=== PATIENT | female | born 1935 | race Caucasian/White ===

== ENCOUNTER 2016-09-14 14:23 | Inpatient (IN) | payer OTHER ==
[~2016-09-14] VITALS: Ht 177.8 cm; Wt 66.4 kg
[~2016-09-14 14:23] MED LIST: CLTP PO; FAMO20TA11 PO; LACT12LO3 TOP; LEVO50TA60 PO; LORA-741 PO; MENTOIN TOP; MULT-506 PO; ONDA4TAB4 PO; TRIA0.1C20 TOP
[2016-09-14] MEDS ORDERED: SODIUM CHLORIDE 0.9% 1000ML 1,000 ML IV STA ×2 (14:50→19:21)
[2016-09-14] MEDS ORDERED: ONDANSETRON INJ 2 MG/ML 2 ML VIAL IV STA (14:50)
[2016-09-14 15:00] LABS: HEMATOCRIT 41.6 % (37-47); MEAN CELL VOLUME 94.3 fL (80-100); MEAN CORPUSCULAR HEMOGLOBIN 32.9 pg (25-34); MEAN CORPUSCULAR HGB CONC 34.9 g/dl (32-36); MEAN PLATELET VOLUME 9.8 fL (7.4-10.4); PLATELET COUNT 189 K/uL (130-400); RED BLOOD COUNT 4.41 M/uL (4.2-5.4); WHITE BLOOD COUNT 8.69 K/uL (4.8-10.8)
--- NOTE | 2016-09-14 15:01 | EMERGENCY ROOM VISIT NOTE ---
History Report prepared by Donnell: Andrei Pang Under the Supervision of: Dr. Herson Kelly M.D. First contact with patient: 14:33 Chief Complaint: ILLNESS Stated Complaint: DIZZINESS/LIGHTHEADED/HEADACHE/BACK PAIN/LEG PAIN History of Present Illness The patient is a 81 year old female who presents to the Emergency Room with complaints of worsening nausea and vomiting for the past two days. The patient states that she is additionally having dizziness, headache, abdominal pain, chills, congestion though that is constant, and some chest tightness. The patient denies any diarrhea, fever, hematochezia, or melena. She states that she has had similar pain before due to gallbladder issues, and she has gall stones, and she has had an appendectomy and a tubal ligation. She states that she has not had a bowel movement since yesterday. The patient denies any history of peptic ulcer disease. She has a history of Sjogren's syndrome and lung disease, and she has recently been put on a new medication. Source of History: patient Onset: two days ago Position: other (global) Quality: other (nausea and vomiting) Timing: worsening Associated Symptoms: + chills, + headache, + abdominal pain, No fevers, No melena, No hematochezia, No diarrhea Review of Systems See HPI for pertinent positives and negatives. A total of ten systems were reviewed and were otherwise negative. Past Medical & Surgical Medical Problems: (1) Autoimmune hepatitis (2) Benign hypertension (3) Central retinal vein occlusion of left eye (4) Cholelithiasis (5) CKD (chronic kidney disease), stage III (6) Diverticulosis of colon (7) Dyslipidemia (8) GERD (gastroesophageal reflux disease) (9) Hypertension (10) HYPERTENSION NOS (11) Interstitial lung disease (12) Osteoporosis (13) Seasonal allergies (14) Sjogrens syndrome (15) Type II Diabetes Surgical Problems: (1) Status post appendectomy (2) Status post tubal ligation Social History Smoking Status: Never Smoker Marital Status: Occupation Status: retired Current/Historical Medications Scheduled Azathioprine (Imuran), 100 MG PO DAILY Famotidine (Pepcid), 10 MG PO DAILY PRN Arhfhtzw-Fgnpedzwyjkl-Bgbkxprm (Artificial Tears), DIRECTED Ipratropium Whitefish (Nasal) (Ipratropium Whitefish), 2 SPRAYS SHEILA BID Levothyroxine Sodium (Synthroid), 50 MCG PO DAILY Lisinopril (Zestril), 5 MG PO DAILY Metoprolol Succ (Toprol Xl) (Toprol-Xl), 25 MG PO DAILY Prednisone (Prednisone), 15 MG PO DAILY Scheduled PRN Acetaminophen Tab (Tylenol), 325 MG PO DIRECTED PRN for Pain or Fever Albuterol Hfa (Ventolin Hfa), 2 PUFFS INH Q6H PRN for SOB/Wheezing Albuterol Sulf (Proventil 0.083% 2.5MG/3ML), 2.5 MG INH Q4H PRN for SOB/Wheezing Ipratropium Whitefish (Atrovent 0.02% Soln), 1 VIAL INH Q4H PRN for SOB/Wheezing Lactic Acid (Ammonium Lactate Cream 12%), 1 APPLN TOP BID PRN for DRYNESS Triamcinolone Acet (Aristocort 0.1%), 1 APPLN EXT BID PRN for RASH Allergies Coded Allergies: Sulfamethoxazole w/Trimethoprim (Unverified Allergy, Severe, edema face/ lips/tongue, 09/14/16) Latex1 -Allergic Contact Dermititis (Unverified Allergy, Mild, LOCAL SKIN REACTION, 09/14/16) Niacin (Unverified Allergy, Mild, RASH, 09/14/16) Naproxen (Unverified Adverse Reaction, Intermediate, BURNING STOMACH, 09/14) Physical Exam Vital Signs Date Time Temp Pulse Resp B/P (MAP) Pulse Ox O2 Delivery O2 Flow Rate FiO2 09/14/16 18:34 113 09/14/16 17:56 109 18 145/81 92 Room Air 09/14/16 16:09 101 18 157/80 95 Room Air 09/14/16 15:29 103 18 146/102 92 Room Air 09/14/16 14:32 115 09/14/16 14:30 37.1 116 16 236/137 90 Room Air Physical Exam GENERAL: Awake, alert, fatigued-appearing, in no distress HENT: Mucous membranes are dry. Normocephalic, atraumatic. EYES: Normal conjunctiva. Sclera non-icteric. NECK: Supple. No nuchal rigidity. FROM. No JVD. RESPIRATORY: Diminished at bases but otherwise Clear to auscultation. CARDIAC: Mildly tachycardic rate, normal rhythm. Extremities warm and well perfused. Pulses equal. ABDOMEN: Mild epigastric and left lower quadrant tenderness. Soft, non- distended. No rebound or guarding. No masses. RECTAL: Deferred. MUSCULOSKELETAL: Chest examination reveals no tenderness. The back is symmetrical on inspection without obvious abnormality. There is no CVA tenderness to palpation. Moderate right knee effusion with slight warmth, no overlying erythema. LOWER EXTREMITIES: Calves are equal size bilaterally and non-tender. No edema. No discoloration. NEURO: Normal sensorium. No sensory or motor deficits noted. SKIN: No rash or jaundice noted. Medical Decision & Procedures ER Provider Diagnostic Interpretation: Radiology results as stated below per my review and radiologist interpretation: CHEST ONE VIEW PORTABLE CLINICAL HISTORY: cp dyspnea COMPARISON STUDY: 04/28/2012 FINDINGS: Small parenchymal infiltrate left base. Mild Baseline chronic interstitial change. No evidence for cardiac enlargement. Diaphragms are smooth. IMPRESSION: Small parenchymal infiltrate left base. Mild chronic interstitial change bilaterally. The above report was generated using voice recognition software. It may contain grammatical, syntax or spelling errors. Electronically signed by: Franklin Randle M.D. 09/14/2016 3:14 PM Dictated Date/Time: 09/14/2016 3:14 PM (CHEST FOR PE) ANGIO WITH CT DOSE: HISTORY: Chest pain dyspnea TECHNIQUE: Multiaxial CT images of the chest were performed following the intravenous administration of contrast to evaluate the pulmonary arteries. Maximal intensity projection images were also obtained. A dose lowering technique was utilized adhering to the principles of ALARA. COMPARISON STUDY: 11/17/2013 FINDINGS: Pulmonary vasculature enhances appropriately. No filling defects are seen. Thoracic aorta shows minimal atherosclerotic change. Somewhat progressive interstitial change throughout both hemithoraces compared to the prior exam. Right hilar nodes measuring to 1.2 cm. Several mediastinal nodes measuring to 1.2 cm. Bibasilar atelectatic atelectatic and pleural reactive change. IMPRESSION: 1. Study is negative for pulmonary embolus. 2. Mildly progressive interstitial change suggesting a low-grade pneumonitis throughout both hemithoraces. 3. Several mediastinal and/or hilar nodes possibly reactive The above report was generated using voice recognition software. It may contain grammatical, syntax or spelling errors. Electronically signed by: Franklin Randle M.D. 09/14/2016 6:12 PM Dictated Date/Time: 09/14/2016 6:07 PM ABD/PELVIS IV CONTRAST ONLY CT DOSE: 702.96 mGy.cm HISTORY: Pain n/v TECHNIQUE: Multiaxial CT images of the abdomen and pelvis were performed following the use of intravenous contrast. A dose lowering technique was utilized adhering to the principles of ALARA. COMPARISON STUDY: None. FINDINGS: Interstitial infiltrative change at both lung bases. Mild fatty infiltration of liver. Multiple gallstones within the gallbladder lumen. Possible calcification in the region of the cystic duct and the distal common bile duct. No dilatation of the pancreatic duct. Cortical scarring of the kidneys bilaterally. No evidence for renal hydronephrosis. Nonobstructive bowel pattern. Normal appendix. Extensive chronic sigmoid diverticulosis. No evidence for acute diverticulitis. Bladder is midline. Mild bladder distention. No evidence for pneumatosis or free air. IMPRESSION: 1. Nonspecific bibasilar interstitial infiltrative change. 2. Gallstone filled gallbladder with the possibility of calcifications adjacent to and/or within the cystic as well as common bile duct. 3. Considerable sigmoid diverticulosis with no evidence for acute diverticulitis. 4. Nonobstructive bowel pattern. 5. Considerable degenerative disc change of the thoracolumbar spine The above report was generated using voice recognition software. It may contain grammatical, syntax or spelling errors. Electronically signed by: Franklin Randle M.D. 09/14/2016 6:18 PM Dictated Date/Time: 09/14/2016 6:12 PM Laboratory Results Test 09/14/16 14:38 09/14/16 15:22 09/14/16 19:22 09/14/16 19:36 Stomatocytes 1+ Direct Bilirubin 0.1 mg/dl (0-0.2) Lyme Disease IgG Antibody NEG (NEG) Lyme Disease IgM Antibody NEG (NEG) Lactic Acid Level 1.0 mmol/L (0.4-2.0) Synovial Fluid Source KNEE Synovial Fluid Color YELLOW Synovial Fluid Appearance TURBID Synovial Fluid WBC 1770 /uL (0-200) Synovial Fluid RBC < 3000 /uL Synovial Fluid Polynuclear WBCs % 55.8 % Synovial Fluid Mononuclear WBCs % 44.2 % Synovial Fluid Crystals Urine Color YELLOW Urine Appearance CLEAR (CLEAR) Urine pH 6.5 (4.5-7.5) Urine Specific [place] 1.022 (1.000-1.030) Urine Protein NEG (NEG) Urine Glucose (UA) NEG (NEG) Urine Ketones NEG (NEG) Urine Occult Blood NEG (NEG) Urine Nitrite NEG (NEG) Urine Bilirubin NEG (NEG) Urine Urobilinogen NEG (NEG) Urine Leukocyte Esterase NEG (NEG) Urine WBC (Auto) 1-5 /hpf (0-5) Urine RBC (Auto) 0-4 /hpf (0-4) Urine Hyaline Casts (Auto) 0 /lpf (0-5) Urine Epithelial Cells (Auto) 10-20 /lpf (0-5) Urine Bacteria (Auto) NEG (NEG) Laboratory results reviewed by me Medications Administered Medications (Trade) Dose Ordered Sig/Nataly Route Start Time Stop Time Status Last Admin Dose Admin Sodium Chloride 1,000 ml @ 999 mls/hr Q1H1M STAT IV 09/14/16 14:50 09/14/16 15:50 DC 09/14/16 15:15 999 MLS/HR Ondansetron HCl (Zofran Inj) 4 mg NOW STAT IV 09/14/16 14:50 09/14/16 14:54 DC 09/14/16 15:15 4 MG Piperacillin Sod/ Tazobactam Sod (Zosyn Iv) 3.375 gm NOW STAT IV 09/14/16 19:21 09/14/16 19:27 DC 09/14/16 19:40 3.375 GM Sodium Chloride 1,000 ml @ 999 mls/hr Q1H1M STAT IV 09/14/16 19:21 09/14/16 20:21 DC 09/14/16 19:40 999 MLS/HR Vancomycin HCl 1500 mg/Sodium Chloride 530 ml @ 200 mls/hr NOW STAT IV 09/14/16 19:21 09/14/16 21:59 DC 09/14/16 22:13 200 MLS/HR Procedure Arthrocentesis procedure note The patient was consented for the procedure and risks and benefits were explained. The patient had no contraindications. Indication for the procedure was for right knee effusion, rule out septic knee. The patient was prepped and draped in typical sterile fashion. 5 mL of lidocaine 1% lidocaine was instilled and 18-gauge was inserted into the lateral aspect of the right knee and successfully drained 55 mL of cloudy aspirate. Aspirate was sent for cell counts culture and Gram stain, as well as Lyme. No complications. ECG Indication: nausea, vomiting Rate (beats per minute): 109 Rhythm: sinus tachycardia Findings: no acute ischemic change, other (LVH) ED Course 1433: The patient was evaluated in room B7. A complete history and physical exam was performed. 1450: Zofran Inj 4mg IV, Sodium Chloride 1000 ml @ 999 mls/hr IV 1540: I reassessed the patient, and I performed an ultrasound on the patient Medical Decision I reviewed the patient's past medical history, medications, and the nursing notes as described above. The patient's presentation and history were concerning for gastritis vs gastroenteritis, cholecystitis vs. biliary colic less likely, obstruction less likely, ACS less likely. Patient is a 81-year-old woman with a complicated past medical history of Sjogren's currently on azathioprine and chronic prednisone presents to the emergency department with multiple complaints including generalized malaise, nausea and vomiting, chest pain shortness of breath, and abdominal pain over the past several days per history of present illness. On arrival the patient appears uncomfortable in no acute distress. Afebrile and tachycardic to 110s. On exam the patient appears clinically dry. Lungs diminished at the bases, abdomen with mild tenderness to palpation in the right upper quadrant and epigastrium, as well as left lower quadrant. EKG unremarkable, as to x-ray with question left lower lobe infiltrate, WBC and lactate within normal limits. Bedside ultrasound was significant gallstone burden however without pericholecystic fluid or wall thickening. Considering the patient's Sjogren's broad differential existed for the patient's multiple complaints therefore a CT PE study was done as well as a of the abdomen and pelvis. CT chest findings negative for PE however with bilateral lower lobe pneumonitis and CT of pelvis with gallstones appreciated question calcification cystic duct otherwise without any acute emergent findings. On reevaluation Patient with moderate improvement in heart rate IV fluids however still mildly tachycardic. Moreover , the patient complained of right knee pain and swelling that was worse than she initially thought. Reports that she finds it difficult to ambulate but is able to despite the pain. Passive range of motion is intact although causes discomfort. Mild warmth with moderate effusion of the right knee. Thus, the patient was consented and arthrocentesis was performed per procedure note above. Considering the patient's immunosuppressed status with question of pneumonia as well as possible infected knee the patient was treated empirically with vancomycin and Zosyn. The patient is admitted to hospital medicine for further hydration and management including possible rheumatology and/or pulmonology consultation. Medication Reconcilliation Current Medication List: was personally reviewed by me Blood Pressure Screening Patient's blood pressure: Elevated blood pressure Impression Primary Impression: Pneumonia Scribe Attestation The scribe's documentation has been prepared under my direction and personally reviewed by me in its entirety. I confirm that the note above accurately reflects all work, treatment, procedures, and medical decision making performed by me. Departure Information Referrals Marivel Yoon M.D. (PCP) Patient Instructions My [facility]
[2016-09-14] MEDS ORDERED: PRED-301 PO (15:06)
[2016-09-14] MEDS ORDERED: LCHC12280 TOP (15:06)
[2016-09-14] MEDS ORDERED: GLYCDRO6 (15:06)
[2016-09-14] MEDS ORDERED: LEVO50TA PO (15:06)
[2016-09-14] MEDS ORDERED: ALBINS/ INH (15:06)
[2016-09-14] MEDS ORDERED: METO25TA3 PO (15:06)
[2016-09-14] MEDS ORDERED: AZAT50TA17 PO (15:06)
[2016-09-14] MEDS ORDERED: TRMCR130WC EXT (15:06)
[2016-09-14] MEDS ORDERED: IPRA0.03 NAE (15:06)
[2016-09-14] MEDS ORDERED: ACET325T96 PO (15:06)
[2016-09-14] MEDS ORDERED: VNTHFA/IN INH (15:06)
[2016-09-14] MEDS ORDERED: LISI-729 PO (15:06)
[2016-09-14] MEDS ORDERED: ATRINSX INH (15:06)
--- NOTE | 2016-09-14 15:16 | DIAGNOSTIC IMAGING REPORT ---
CHEST ONE VIEW PORTABLE CLINICAL HISTORY: cp dyspnea COMPARISON STUDY: 04/28/2012 FINDINGS: Small parenchymal infiltrate left base. Mild Baseline chronic interstitial change. No evidence for cardiac enlargement. Diaphragms are smooth. IMPRESSION: Small parenchymal infiltrate left base. Mild chronic interstitial change bilaterally. The above report was generated using voice recognition software. It may contain grammatical, syntax or spelling errors. Electronically signed by: Franklin Randle M.D. 09/14/2016 3:14 PM Dictated Date/Time: 09/14/2016 3:14 PM
[2016-09-14 15:18] LABS: BUN/CREATININE RATIO 17.1 (10-20); CALCIUM 9.1 mg/dl (8.5-10.1); CREATININE 0.86 mg/dl (0.60-1.20)
[2016-09-14 15:23] LABS: BASO % 0.2 %; BASO ABS # 0.02 K/uL (0-0.2); COMPLETE YES; IG% 0.2 %; LYMPH % 13.5 %; LYMPH ABS # 1.17 K/uL (1.2-3.4); MONO % 10.9 %; NEUT % 74.2 %; STOMATOCYTE 1+
[2016-09-14] MEDS ORDERED: OPTIRAY 320 IV PRN (18:00)
--- NOTE | 2016-09-14 18:13 | DIAGNOSTIC IMAGING REPORT ---
(CHEST FOR PE) ANGIO WITH CT DOSE: HISTORY: Chest pain dyspnea TECHNIQUE: Multiaxial CT images of the chest were performed following the intravenous administration of contrast to evaluate the pulmonary arteries. Maximal intensity projection images were also obtained. A dose lowering technique was utilized adhering to the principles of ALARA. COMPARISON STUDY: 11/17/2013 FINDINGS: Pulmonary vasculature enhances appropriately. No filling defects are seen. Thoracic aorta shows minimal atherosclerotic change. Somewhat progressive interstitial change throughout both hemithoraces compared to the prior exam. Right hilar nodes measuring to 1.2 cm. Several mediastinal nodes measuring to 1.2 cm. Bibasilar atelectatic atelectatic and pleural reactive change. IMPRESSION: 1. Study is negative for pulmonary embolus. 2. Mildly progressive interstitial change suggesting a low-grade pneumonitis throughout both hemithoraces. 3. Several mediastinal and/or hilar nodes possibly reactive The above report was generated using voice recognition software. It may contain grammatical, syntax or spelling errors. Electronically signed by: Franklin Randle M.D. 09/14/2016 6:12 PM Dictated Date/Time: 09/14/2016 6:07 PM
--- NOTE | 2016-09-14 18:19 | DIAGNOSTIC IMAGING REPORT ---
ABD/PELVIS IV CONTRAST ONLY CT DOSE: 702.96 mGy.cm HISTORY: Pain n/v TECHNIQUE: Multiaxial CT images of the abdomen and pelvis were performed following the use of intravenous contrast. A dose lowering technique was utilized adhering to the principles of ALARA. COMPARISON STUDY: None. FINDINGS: Interstitial infiltrative change at both lung bases. Mild fatty infiltration of liver. Multiple gallstones within the gallbladder lumen. Possible calcification in the region of the cystic duct and the distal common bile duct. No dilatation of the pancreatic duct. Cortical scarring of the kidneys bilaterally. No evidence for renal hydronephrosis. Nonobstructive bowel pattern. Normal appendix. Extensive chronic sigmoid diverticulosis. No evidence for acute diverticulitis. Bladder is midline. Mild bladder distention. No evidence for pneumatosis or free air. IMPRESSION: 1. Nonspecific bibasilar interstitial infiltrative change. 2. Gallstone filled gallbladder with the possibility of calcifications adjacent to and/or within the cystic as well as common bile duct. 3. Considerable sigmoid diverticulosis with no evidence for acute diverticulitis. 4. Nonobstructive bowel pattern. 5. Considerable degenerative disc change of the thoracolumbar spine The above report was generated using voice recognition software. It may contain grammatical, syntax or spelling errors. Electronically signed by: Franklin Randle M.D. 09/14/2016 6:18 PM Dictated Date/Time: 09/14/2016 6:12 PM
[2016-09-14] MEDS ORDERED: XYLOCAINE 1%/SOD BICARB 20 ML VIAL INFIL ONE (19:00)
[2016-09-14] MEDS ORDERED: PIPERACILLIN/TAZOBACTAM 3.375 GM/100ML D5W IV STA (19:21)
[2016-09-14] MEDS ORDERED: VANCOMYCIN INJ 1,500 MG in SODIUM CHLORIDE 0.9% 500ML 500 ML IV STA (19:21)
[2016-09-14] MEDS ORDERED: VANCOMYCIN INJ 1,500 MG in SODIUM CHLORIDE 0.9% 250ML 250 ML IV STA (19:21)
[2016-09-14] MEDS ORDERED: ONDANSETRON INJ 2 MG/ML 2 ML VIAL IV PRN (19:45)
[2016-09-14] MEDS ORDERED: NITROGLYCERIN 0.4 MG SL PER TAB CHARGE SL PRN (19:45)
[2016-09-14 19:58] LABS: SYNOVIAL FLUID APPEARANCE TURBID; SYNOVIAL FLUID COLOR YELLOW; SYNOVIAL FLUID MONONUC RELAT 44.2 %; SYNOVIAL FLUID POLYNUC RELAT 55.8 %
[2016-09-14] MEDS ORDERED: IV FLUIDS COMPLETED PRN (20:00)
[2016-09-14 20:04] LABS: URINE APPEARANCE CLEAR (CLEAR); URINE BILIRUBIN NEG (NEG); URINE COLOR YELLOW; URINE NITRITE NEG (NEG); URINE PH 6.5 (4.5-7.5); URINE SPECIFIC GRAVITY 1.022 (1.000-1.030); UROBILINOGEN NEG (NEG); ZZUR CULT IF INDIC CLEAN CATCH NO
[2016-09-14 20:07] LABS: MANUAL MICROSCOPIC REQUIRED? NO; REVIEW REQ? NO
[2016-09-14 20:12] LABS: LYME DISEASE AB IGG NEG (NEG); LYME DISEASE AB IGM NEG (NEG)
[2016-09-14] MEDS ORDERED: ALBUTEROL HFA 8 GM INHALER INH PRN (20:30)
[2016-09-14] MEDS ORDERED: ARTIFICIAL TEARS OP SOLN OPB PRN ×2 (20:30)
--- NOTE | 2016-09-14 20:36 | History and Physical ---
History & Physical Date & Time of Service: Sep 14, 2016 at ~ 19:30 . Chief Complaint: chills, abdominal pain, nausea, knee pain . Primary Care Physician: Marivel Yoon M.D. . History of Present Illness Source: patient, family, clinic records, hospital records 81 YO female followed by Dr. Yoon for Internal Medicine, Dr. Chavarria for Pulmonary Medicine, and Dr. Casillas for Rheumatology. History of hypertension, Sjogren's syndrome, interstitial lung disease, autoimmune hepatitis, and other problems noted below. Her Sjogren's syndrome has been manage with steroids for some time. Started on azathioprine a few weeks ago. Seen in Rheumatology Clinic 2 days prior to admission and was doing well. Yesterday she started experiencing chills, epigastric abdominal discomfort, nausea. Abdominal pain described as epigastric pressure that does not radiate. No documented fever. No emesis. No diarrhea, melena, hematochezia. No dysuria or hematuria. Last night she noticed some pain and swelling of her right knee. No associated trauma. [place] worse today, so she came to the Emergency Department for evaluation. . Past Medical/Surgical History Chronic and Resolved Medical Problems: (1) Autoimmune hepatitis Status: Chronic (3) Central retinal vein occlusion of left eye Status: Chronic (4) Cholelithiasis Status: Chronic (5) CKD (chronic kidney disease), stage III Status: Chronic (6) Diverticulosis of colon Status: Chronic (7) Dyslipidemia Status: Chronic (8) GERD (gastroesophageal reflux disease) Status: Chronic (9) Hypertension Status: Chronic (11) Interstitial lung disease Status: Chronic (12) Osteoporosis Status: Chronic (13) Seasonal allergies Status: Chronic (14) Sjogrens syndrome Status: Chronic (15) Type II Diabetes Status: Chronic Surgical Problems: (1) Status post appendectomy Status: Chronic (2) Status post tubal ligation Status: Chronic . Family History FATHER Dementia MOTHER Heart disease BROTHER Bladder cancer BROTHER COPD (chronic obstructive pulmonary disease) SISTER COPD (chronic obstructive pulmonary disease) Social History Smoking Status: Never Smoker Alcohol Use: rarely Marital Status: Housing status: lives with family Occupational Status: retired Immunizations History of Influenza Vaccine: Yes History of Tetanus Vaccine?: Unknown History of Pneumococcal: Yes History of Hepatitis B Vaccine: No Multi-Drug Resistant Organisms History of MDRO: No Allergies Coded Allergies: Sulfamethoxazole w/Trimethoprim (Unverified Allergy, Severe, edema face/ lips/tongue, 09/14/16) Latex1 -Allergic Contact Dermititis (Unverified Allergy, Mild, LOCAL SKIN REACTION, 09/14/16) Niacin (Unverified Allergy, Mild, RASH, 09/14/16) Naproxen (Unverified Adverse Reaction, Intermediate, BURNING STOMACH, 09/14) Home Medications Scheduled Azathioprine (Imuran), 100 MG PO DAILY Famotidine (Pepcid), 10 MG PO DAILY PRN Rjzkznos-Cuipugryfirl-Ojbhkejq (Artificial Tears), DIRECTED Ipratropium Everest (Nasal) (Ipratropium Everest), 2 SPRAYS SHEILA BID Levothyroxine Sodium (Synthroid), 50 MCG PO DAILY Lisinopril (Zestril), 5 MG PO DAILY Metoprolol Succ (Toprol Xl) (Toprol-Xl), 25 MG PO DAILY Prednisone (Prednisone), 15 MG PO DAILY Scheduled PRN Acetaminophen Tab (Tylenol), 325 MG PO DIRECTED PRN for Pain or Fever Albuterol Hfa (Ventolin Hfa), 2 PUFFS INH Q6H PRN for SOB/Wheezing Albuterol Sulf (Proventil 0.083% 2.5MG/3ML), 2.5 MG INH Q4H PRN for SOB/Wheezing Ipratropium Everest (Atrovent 0.02% Soln), 1 VIAL INH Q4H PRN for SOB/Wheezing Lactic Acid (Ammonium Lactate Cream 12%), 1 APPLN TOP BID PRN for DRYNESS Triamcinolone Acet (Aristocort 0.1%), 1 APPLN EXT BID PRN for RASH Review of Systems Constitutional: + chills, No fever, No weight loss Eyes: + problem reported (chronic dry eyes, chronic vision loss left eye) ENT: + nasal symptoms, + problem reported (xerostomia), No sore throat Respiratory: + cough (mild, attriubted to postnasal drainage), + dyspnea on exertion (chronic, unchanged) Cardiovascular: + problem reported (as noted above in HPI) Abdomen: + problem reported (as noted above in HPI) Musculoskeletal: + joint pain Genitourinary - Female: No dysuria, No hematuria Neurologic: + problem reported (occasional frontal headahces) Endocrine: + fatigue, + excessive thirst, + problem reported (blood sugars well -controlled), No excessive urination Hematologic / Lymphatic: + abnormal bleeding/bruising (bruises easily), No swollen lymph nodes Integumentary: No new/changing skin lesions Allergic / Immunologic: + seasonal allergies Physical Exam Vital Signs Date Time Temp Pulse Resp B/P (MAP) Pulse Ox O2 Delivery O2 Flow Rate FiO2 09/14/16 19:45 111 18 139/81 93 Room Air 09/14/16 18:34 113 09/14/16 17:56 109 18 145/81 92 Room Air 09/14/16 16:09 101 18 157/80 95 Room Air 09/14/16 15:29 103 18 146/102 92 Room Air 09/14/16 14:32 115 09/14/16 14:30 37.1 116 16 236/137 90 Room Air General Appearance: WD/WN, no apparent distress Head: normocephalic, atraumatic Eyes: normal inspection, PERRL, EOMI, sclerae normal ENT: hearing grossly normal, pharynx normal, + pertinent finding (upper and lower dentures) Neck: supple, no adenopathy, thyroid normal, trachea midline Respiratory/Chest: no respiratory distress, no accessory muscle use, + rales ( scattered) Cardiovascular: regular rate, rhythm, no edema, no JVD, no murmur, normal peripheral pulses, + gallop/S4 Abdomen/GI: normal bowel sounds, soft, no organomegaly, no pulsatile mass, + pertinent finding (moderate epigastric tenderness without rebound or guarding) Extremities/Musculoskelatal: no calf tenderness, no pedal edema, + pertinent finding (moderate effusion right knee without erythema or warmth) Neurologic/Psych: oreman II-XII nml as tested (PERRL, EOMI, no facial palsy, no dyarthria), no motor/sensory deficits (motor strength grossly intact), alert, normal mood/affect, oriented x 3 Skin: normal color, warm/dry, no rash Lymphatic: no adenopathy (cervical) Diagnostics Laboratory Results Results Past 24 Hours Test 09/14/16 14:38 09/14/16 15:22 09/14/16 19:22 09/14/16 19:36 Range/Units White Blood Count 8.69 4.8-10.8 K/uL Red Blood Count 4.41 4.2-5.4 M/uL Hemoglobin 14.5 12.0-16.0 g/dL Hematocrit 41.6 37-47 % Mean Corpuscular Volume 94.3 80-100 fL Mean Corpuscular Hemoglobin 32.9 25-34 pg Mean Corpuscular Hemoglobin Concent 34.9 32-36 g/dl Platelet Count 189 130-400 K/uL Mean Platelet Volume 9.8 7.4-10.4 fL Neutrophils (%) (Auto) 74.2 % Lymphocytes (%) (Auto) 13.5 % Monocytes (%) (Auto) 10.9 % Eosinophils (%) (Auto) 1.0 % Basophils (%) (Auto) 0.2 % Neutrophils # (Auto) 6.44 1.4-6.5 K/uL Lymphocytes # (Auto) 1.17 1.2-3.4 K/uL Monocytes # (Auto) 0.95 0.11-0.59 K/uL Eosinophils # (Auto) 0.09 0-0.5 K/uL Basophils # (Auto) 0.02 0-0.2 K/uL RDW Standard Deviation 42.8 36.4-46.3 fL RDW Coefficient of Variation 12.5 11.5-14.5 % Immature Granulocyte % (Auto) 0.2 % Immature Granulocyte # (Auto) 0.02 0.00-0.02 K/uL Stomatocytes 1+ Sodium Level 131 136-145 mmol/L Potassium Level 4.0 3.5-5.1 mmol/L Chloride Level 93 98-107 mmol/L Carbon Dioxide Level 25 21-32 mmol/L Anion Gap 13.0 3-11 mmol/L Blood Urea Nitrogen 15 7-18 mg/dl Creatinine 0.86 0.60-1.20 mg/dl Est Creatinine Clear Calc Drug Dose 57.4 ml/min Estimated GFR () 74.5 Estimated GFR (Non- 64.3 BUN/Creatinine Ratio 17.1 10-20 Random Glucose 136 70-99 mg/dl Calcium Level 9.1 8.5-10.1 mg/dl Total Bilirubin 0.6 0.2-1 mg/dl Direct Bilirubin 0.1 0-0.2 mg/dl Aspartate Amino Transf (AST/SGOT) 20 15-37 U/L Alanine Aminotransferase (ALT/SGPT) 21 12-78 U/L Alkaline Phosphatase 71 45-117 U/L Total Protein 7.2 6.4-8.2 gm/dl Albumin 3.4 3.4-5.0 gm/dl Lyme Disease IgG Antibody NEG NEG Lyme Disease IgM Antibody NEG NEG Lactic Acid Level 1.0 0.4-2.0 mmol/L Synovial Fluid Source KNEE Synovial Fluid Color YELLOW Synovial Fluid Appearance TURBID Synovial Fluid WBC 1770 0-200 /uL Synovial Fluid RBC < 3000 /uL Synovial Fluid Polynuclear WBCs % 55.8 % Synovial Fluid Mononuclear WBCs % 44.2 % Urine Color YELLOW Urine Appearance CLEAR CLEAR Urine pH 6.5 4.5-7.5 Urine Specific [place] 1.022 1.000-1.030 Urine Protein NEG NEG Urine Glucose (UA) NEG NEG Urine Ketones NEG NEG Urine Occult Blood NEG NEG Urine Nitrite NEG NEG Urine Bilirubin NEG NEG Urine Urobilinogen NEG NEG Urine Leukocyte Esterase NEG NEG Urine WBC (Auto) 1-5 0-5 /hpf Urine RBC (Auto) 0-4 0-4 /hpf Urine Hyaline Casts (Auto) 0 0-5 /lpf Urine Epithelial Cells (Auto) 10-20 0-5 /lpf Urine Bacteria (Auto) NEG NEG Microbiology Results 09/14/16 Blood Culture, Received Pending 09/14/16 Blood Culture, Received Pending 09/14/16 Gram Stain - Preliminary, Resulted 09/14/16 Bacterial Culture, Resulted Pending 09/14/16 Gram Stain - Preliminary, Resulted 09/14/16 Bacterial Culture, Resulted Pending Diagnostic Radiology CHEST ONE VIEW PORTABLE FINDINGS: Small parenchymal infiltrate left base. Mild Baseline chronic interstitial change. No evidence for cardiac enlargement. Diaphragms are smooth. IMPRESSION: Small parenchymal infiltrate left base. Mild chronic interstitial change bilaterally. The above report was generated using voice recognition software. It may contain grammatical, syntax or spelling errors. Electronically signed by: Franklin Randle M.D. 09/14/2016 3:14 PM Dictated Date/Time: 09/14/2016 3:14 PM (CHEST FOR PE) ANGIO WITH FINDINGS: Pulmonary vasculature enhances appropriately. No filling defects are seen. Thoracic aorta shows minimal atherosclerotic change. Somewhat progressive interstitial change throughout both hemithoraces compared to the prior exam. Right hilar nodes measuring to 1.2 cm. Several mediastinal nodes measuring to 1.2 cm. Bibasilar atelectatic atelectatic and pleural reactive change. IMPRESSION: 1. Study is negative for pulmonary embolus. 2. Mildly progressive interstitial change suggesting a low-grade pneumonitis throughout both hemithoraces. 3. Several mediastinal and/or hilar nodes possibly reactive The above report was generated using voice recognition software. It may contain grammatical, syntax or spelling errors. Electronically signed by: Franklin Randle M.D. 09/14/2016 6:12 PM Dictated Date/Time: 09/14/2016 6:07 PM ABD/PELVIS IV CONTRAST ONLY FINDINGS: Interstitial infiltrative change at both lung bases. Mild fatty infiltration of liver. Multiple gallstones within the gallbladder lumen. Possible calcification in the region of the cystic duct and the distal common bile duct. No dilatation of the pancreatic duct. Cortical scarring of the kidneys bilaterally. No evidence for renal hydronephrosis. Nonobstructive bowel pattern. Normal appendix. Extensive chronic sigmoid diverticulosis. No evidence for acute diverticulitis. Bladder is midline. Mild bladder distention. No evidence for pneumatosis or free air. IMPRESSION: 1. Nonspecific bibasilar interstitial infiltrative change. 2. Gallstone filled gallbladder with the possibility of calcifications adjacent to and/or within the cystic as well as common bile duct. 3. Considerable sigmoid diverticulosis with no evidence for acute diverticulitis. 4. Nonobstructive bowel pattern. 5. Considerable degenerative disc change of the thoracolumbar spine The above report was generated using voice recognition software. It may contain grammatical, syntax or spelling errors. Electronically signed by: Franklin Randle M.D. 09/14/2016 6:18 PM Dictated Date/Time: 09/14/2016 6:12 PM . EKG EKG performed at 15:12 reviewed and demonstrated baseline artifact, ST at 110 / minute, LVH, repolarization abnormalities, possible age-indeterminant inferior infarct. . Impression Assessment and Plan MALAISE, CHILLS Immunocompromise secondary to long-term therapy with prednisone and recent initiation of azathioprine. Pt has a mild cough. Chest x-ray interpreted as possible left lower lobe pneumonia, but fever chronic interstitial lung disease and possible atelectasis. Known prior history of cholelithiasis. CT demonstrates cholelithiasis without apparent cholecystitis or choledocholithiasis. History of diverticulosis, but no apparent diverticulitis per CT imaging. Consider further evaluation as discussed below. New onset right knee pain / effusion. Consider septic arthritis as discussed below. UA essentially negative, so UTI unlikely. Blood cultures obtained in ED. Arthrocentesis performed. Empiric antibiotic therapy with vancomycin and piperacillin / tazobactam pending culture results. CHOLELITHIASIS Experiencing abdominal pain and nausea. Known prior history of cholelithiasis. LFT's OK. CT demonstrates cholelithiasis without apparent cholecystitis or choledocholithiasis. Check f/u LFT's with amylase and lipase in the morning. Consider further imaging with US or HIDA if symptoms persist. Consult General Surgery. RIGHT KNEE PAIN / EFFUSION Consider septic arthritis or crystal-induced synovitis. Arthrocentesis performed by ED physician. Discuss with Rheumatology once results from arthrocentesis available. CHEST PAIN Patient experiencing some chest tightness. No known history of ischemic heart disease. EKG as noted above. Check cardiac markers. HYPERTENSION Initial BP in ED markedly elevated, repeat readings improved. Continue Rx with metoprolol and lisinopril. DM TYPE 2 Diet controlled. Hgb A1C in clinic on 08/27/16 was 7.1. Follow. SJGREN'S / AUTOIMMUNE HEPATITIS / INTERSTITIAL LUNG DISEASE Continue prednisone. Hold azathioprine until active infection ruled out. DVT PROPHYLAXIS Moderate risk for DVT. SCD's. SQ enoxaparin. Ambulate. RESUSCITATION STATUS Discussed with patient and her daughter. She does not have a living will. She would like resuscitation attempted in the event of a cardiopulmonary arrest if there is a reasonable chance of a meaningful recovery, but does not want prolonged extraordinary measures if prognosis is poor. Therefore, code status = "Level 1" (full resuscitation). DISPOSITION Observation status on Telemetry Unit. Expected discharge to home. Internal Medicine follow-up with Dr. Yoon. Rheumatology follow-up with Roz Casillas. Pulmonary follow-up with Dr. Chavarria. . VTE Prophylaxis VTE Risk Assessment Done? Y/N: Yes Risk Level: Moderate Given or contraindicated: Unfractionated heparin SQ, SCD's
[2016-09-14] MEDS ORDERED: PIPERACILL/TAZOBAC CONSULT ACTIVE PRN (21:00)
[2016-09-14] MEDS ORDERED: VANCOMYCIN CONSULT ACTIVE PRN (21:00)
--- NOTE | 2016-09-14 21:21 | Pharmacy Progress Note ---
Pharmacy Abx Initial Consult Date of Service Sep 14, 2016. Pharmacy Dosing Scope Date of Consult: 09/14/16 Consultation requested by: Dr. Yap Pharmacy is consulted to initiate IV VANCOMYCIN and ZOSYN therapy, order appropriate labs and adjust drug dose/frequency. Subjective The patient is a 81 year old female admitted on Sep 14, 2016 at 19:40 w/ c/o nausea, abd pain, chills and knee pain. Objective Height (Feet): 5 Height (Inches): 10.00 Weight (Kilograms): 69.000 Vital Signs (Past 12Hrs) Vital Signs Past 12 Hours Date Time Temp Pulse Resp B/P (MAP) Pulse Ox O2 Delivery O2 Flow Rate FiO2 09/14/16 20:30 101 18 145/82 95 Room Air 09/14/16 19:45 111 18 139/81 93 Room Air 09/14/16 18:34 113 09/14/16 17:56 109 18 145/81 92 Room Air 09/14/16 16:09 101 18 157/80 95 Room Air 09/14/16 15:29 103 18 146/102 92 Room Air 09/14/16 14:32 115 09/14/16 14:30 37.1 116 16 236/137 90 Room Air Lab Results (24Hrs) Laboratory Tests (24 Hours) Test 09/14/16 14:38 09/14/16 15:22 White Blood Count 8.69 K/uL (4.8-10.8) Red Blood Count 4.41 M/uL (4.2-5.4) Hemoglobin 14.5 g/dL (12.0-16.0) Hematocrit 41.6 % (37-47) Mean Corpuscular Volume 94.3 fL (80-100) Mean Corpuscular Hemoglobin 32.9 pg (25-34) Mean Corpuscular Hemoglobin Concent 34.9 g/dl (32-36) Platelet Count 189 K/uL (130-400) Mean Platelet Volume 9.8 fL (7.4-10.4) Neutrophils (%) (Auto) 74.2 % Lymphocytes (%) (Auto) 13.5 % Monocytes (%) (Auto) 10.9 % Eosinophils (%) (Auto) 1.0 % Basophils (%) (Auto) 0.2 % Neutrophils # (Auto) 6.44 K/uL (1.4-6.5) Lymphocytes # (Auto) 1.17 K/uL (1.2-3.4) L Monocytes # (Auto) 0.95 K/uL (0.11-0.59) H Eosinophils # (Auto) 0.09 K/uL (0-0.5) Basophils # (Auto) 0.02 K/uL (0-0.2) Lactic Acid Level 1.0 mmol/L (0.4-2.0) Micro Results Date/Time Source Procedure Growth Status 09/14/16 15:33 Blood Blood Culture Pending Received 09/14/16 15:22 Blood Blood Culture Pending Received 09/14/16 19:22 Joint Fluid/Space (Synovial) Knee Right Gram Stain - Preliminary Resulted 09/14/16 19:22 Joint Fluid/Space (Synovial) Knee Right Bacterial Culture Pending Resulted 09/14/16 19:22 Joint Fluid/Space (Synovial) Knee Right Gram Stain - Preliminary Resulted 09/14/16 19:22 Joint Fluid/Space (Synovial) Knee Right Bacterial Culture Pending Resulted Assessment & Plan Assessment * 81 year old female beginning empiric abx therapy for possible cholecystitis vs septic arthritis. * Currently afebrile, tachycardic, sat well on room air, lactate wnl, no leukocytosis or L-shift * No organisms seen on gram stain of synovial fluid, moderate WBC noted on stain * BLCX's and joint fluid cx's collected. Plan Vancomycin IV * Loading dose: 1500 mg (~22 mg/kg) * Maintenance dose: 1000 mg IV (15 mg/kg) every 14 hours * Goal trough level for bone/joint infxn : 15 to 20 mcg/mL * Trough level ordered with 4th maintenance dose * p'kinetic estimates: Vd 0.7L/kg; half-life ~13 hours; Maxim 0.052-1 Piperacillin/tazobactam * 3.375 g bolus administered over 30 minutes, then 3.375 g IV extended infusion every 8 hours for CrCl greater than 20 mL/min OR every 12 hours for CrCl 20 mL/ min or less and dialysis. Pharmacy will continue to follow and will adjust dose/frequency as necessary. Thank you.
[2016-09-14 22:31] VITALS: BP 145/80; PULSE 102; TEMP 37; Ht 177.8 cm; Wt 66.4 kg
[2016-09-14 23:15] VITALS: BP 153/87; PULSE 118; TEMP 36.8; O2SAT 93
[2016-09-15] MEDS: PIPERACILL/TAZOBAC IV 3.375 GM in DEXTROSE 5% 100ML 100 ML IV SCH ×3 (01:34→18:07)
[2016-09-15] MEDS ORDERED: ACETAMINOPHEN 325 MG TAB ONE (03:16)
[2016-09-15 04:20] VITALS: BP 162/81; PULSE 110; TEMP 37.9; O2SAT 98
[2016-09-15] MEDS: LEVOTHYROXINE 50 MCG TAB PO SCH (05:23)
[2016-09-15 07:09] LABS: BASO % 0.3 %; BASO ABS # 0.02 K/uL (0-0.2); COMPLETE YES; EOS % 1.1 %; HEMATOCRIT 37.2 % (37-47); IG% 0.3 %; LYMPH % 12.9 %; LYMPH ABS # 0.83 K/uL (1.2-3.4); MEAN CELL VOLUME 95.4 fL (80-100); MEAN CORPUSCULAR HEMOGLOBIN 32.8 pg (25-34); MEAN CORPUSCULAR HGB CONC 34.4 g/dl (32-36); MEAN PLATELET VOLUME 9.7 fL (7.4-10.4); MONO % 9.8 %; NEUT % 75.6 %; PLATELET COUNT 146 K/uL (130-400); WHITE BLOOD COUNT 6.44 K/uL (4.8-10.8)
[2016-09-15 07:16] LABS: PARTIAL THROMBOPLASTIN RATIO 1.1
[2016-09-15 07:41] VITALS: BP 125/70; PULSE 98; TEMP 36.9; O2SAT 98
[2016-09-15 07:44] LABS: BUN/CREATININE RATIO 13.8 (10-20); CALCIUM 8.3 mg/dl (8.5-10.1); CREATININE 0.87 mg/dl (0.60-1.20); POTASSIUM 3.6 mmol/L (3.5-5.1)
[2016-09-15] MEDS: FAMOTIDINE 20 MG TAB PO SCH (07:47)
[2016-09-15] MEDS: METOPROLOL SUCC 25MG EXT REL TAB PO SCH (07:48)
[2016-09-15] MEDS: LISINOPRIL 5 MG TAB PO SCH (07:49)
[2016-09-15 07:54] LABS: ALB/GLOB RATIO 0.8 (0.9-2)
--- NOTE | 2016-09-15 09:14 | Surgery Consultation ---
Consultation Date of Consultation: Sep 15, 2016. Attending Physician: Chelly Mckinnon M.D. Reason for Consultation: Gallstones, epigastric abdominal pain (Sandra Gallardo PA-C) History of Present Illness María is a pleasant 81 year-old female with history of hypertension, Sjogren's syndrome, interstitial lung disease, autoimmune hepatitis, dyslipidemia, CKD stage III, diverticulosis, DM type 2, and GERD who is on chronic prednisone and just started Imuran who presented to emergency department yesterday with complaint of nausea and epigastric abdominal pain that began Thursday morning. She states she first had some chills and then nausea and then developed some abdominal pain. Pain located in the epigastric region with no radiation of pain. Pain described as constant and dull ache. [place] like she had to vomit but only had dry heaves. No significant heartburn or reflux, bloating, pain after eating, changes in bowel habits, diarrhea, constipation, hematochezia or melena. Last bowel movement Thursday which was normal. Has known history of gallstones but no history of gallbladder problems, incidentally found on imaging. She states she is feeling much better today than yesterday. No further nausea or abdominal pain. No very hungry but tolerated some clear liquids this morning for breakfast. No chest pain/pressure, pain down the arms, fever, chills, dizziness, vomiting, shortness of breath or difficulty breathing. She had a CT scan of abdomen and pelvis which showed gallstone filled gallbladder with possible calcifications in the cystic and common bile ducts. Labs including wbc, lfts, total bilirubin, amylase and lipase are within normal limits. She did have an increase in her Troponin this morning at 0.076 (yesterday 0.028) EKG shows: Normal sinus rhythm Voltage criteria for left ventricular hypertrophy Inferior infarct (cited on or before 14-SEP-2016) Abnormal ECG When compared with ECG of 14-SEP-2016 15:13, (unconfirmed) No significant change was found (Sandra Gallardo PA-C) Past Medical/Surgical History 1. Hypertension 2. Sjgren's syndrome 3. Dyslipidemia 4. GERD 5. Interstitial lung disease 6. Autoimmune hepatitis 7. CKD stage III 8. Diverticulosis 9. DM type 2 (Sandra Gallardo PA-C) Family History Bladder cancer BROTHER COPD (chronic obstructive pulmonary disease) BROTHER SISTER Dementia FATHER Heart disease MOTHER (Sandra Gallardo PA-C) Social History Smoking Status: Never Smoker Alcohol Use: rarely Marital Status: Occupation Status: retired (Sandra Gallardo PA-C) Allergies Coded Allergies: Sulfamethoxazole w/Trimethoprim (Unverified Allergy, Severe, edema face/ lips/tongue, 09/14/16) Latex1 -Allergic Contact Dermititis (Unverified Allergy, Mild, LOCAL SKIN REACTION, 09/14/16) Niacin (Unverified Allergy, Mild, RASH, 09/14/16) Naproxen (Unverified Adverse Reaction, Intermediate, BURNING STOMACH, 09/14) Home Medications Scheduled Azathioprine (Imuran), 100 MG PO DAILY Famotidine (Pepcid), 10 MG PO DAILY PRN Wwuoogab-Agocqbtocsbp-Txctrycw (Artificial Tears), DIRECTED Ipratropium [place] (Nasal) (Ipratropium [place]), 2 SPRAYS SHEILA BID Levothyroxine Sodium (Synthroid), 50 MCG PO DAILY Lisinopril (Zestril), 5 MG PO DAILY Metoprolol Succ (Toprol Xl) (Toprol-Xl), 25 MG PO DAILY Prednisone (Prednisone), 15 MG PO DAILY Scheduled PRN Acetaminophen Tab (Tylenol), 325 MG PO DIRECTED PRN for Pain or Fever Albuterol Hfa (Ventolin Hfa), 2 PUFFS INH Q6H PRN for SOB/Wheezing Albuterol Sulf (Proventil 0.083% 2.5MG/3ML), 2.5 MG INH Q4H PRN for SOB/Wheezing Ipratropium [place] (Atrovent 0.02% Soln), 1 VIAL INH Q4H PRN for SOB/Wheezing Lactic Acid (Ammonium Lactate Cream 12%), 1 APPLN TOP BID PRN for DRYNESS Triamcinolone Acet (Aristocort 0.1%), 1 APPLN EXT BID PRN for RASH Current Inpatient Medications Current Inpatient Medications Medications (Trade) Dose Ordered Sig/Nataly Route Start Time Stop Time Status Last Admin Dose Admin Ioversol (Optiray 320) 116 ml UD PRN IV 09/14/16 18:00 09/18/16 17:59 Ondansetron HCl (Zofran Inj) 4 mg Q6H PRN IV 09/14/16 19:45 10/14/16 19:44 Nitroglycerin (Nitrostat Tab) 0.4 mg UD PRN SL 09/14/16 19:45 10/14/16 19:44 Miscellaneous (Iv Fluids Completed) 1 ea PRN PRN N/A 09/14/16 20:00 09/14/17 19:59 Albuterol (Ventolin Hfa Inhaler) 2 puffs Q6H PRN INH 09/14/16 20:30 10/14/16 20:29 Famotidine (Pepcid Tab) 10 mg DAILY PO 09/15/16 09:00 10/15/16 08:59 09/15/16 07:47 10 MG Levothyroxine Sodium (Synthroid Tab) 50 mcg DAILYBB PO 09/15/16 06:30 10/15/16 06:59 09/15/16 05:23 50 MCG Lisinopril (Zestril Tab) 5 mg DAILY PO 09/15/16 09:00 10/15/16 08:59 09/15/16 07:49 5 MG Metoprolol Succinate (Toprol Xl Tab) 25 mg DAILY PO 09/15/16 09:00 10/15/16 08:59 09/15/16 07:48 25 MG Prednisone (PredniSONE TAB) 15 mg DAILY PO 09/15/16 09:00 10/15/16 08:59 09/15/16 07:47 15 MG Artificial Tears (Artificial Tears) 2 drops Q1H PRN OPB 09/14/16 20:30 10/14/16 20:29 Vancomycin HCl 1000 mg/Sodium Chloride 270 ml @ 125 mls/hr Q14H IV 09/15/16 10:00 09/25/16 09:59 Piperacillin Sod/ Tazobactam Sod 3.375 gm/Dextrose 115 ml @ 28.75 mls/ hr Q8H IV 09/15/16 02:00 09/25/16 01:59 09/15/16 01:34 28.75 MLS/HR Vancomycin HCl (Consult) 1 ea UD PRN N/A 09/14/16 21:00 10/14/16 20:59 Piperacillin Sod/ Tazobactam Sod (Consult) 1 ea UD PRN N/A 09/14/16 21:00 10/14/16 20:59 Enoxaparin Sodium (Lovenox Inj) 40 mg QAM SQ 09/15/16 09:00 10/15/16 08:59 Acetaminophen (Tylenol Tab) 650 mg Q6H PRN PO 09/15/16 03:00 10/15/16 02:59 (Sandra Gallardo, JASWINDER-C) Review of Systems Constitutional: + chills, + sweats, No fever Respiratory: No wheezing, No shortness of breath Cardiovascular: No chest pain Abdomen: + pain, + nausea, No vomiting, No diarrhea, No constipation, No GI bleeding Endocrine: No fatigue Integumentary: No rash (Sandra Gallardo ., KINGSLEYC) Physical Exam Date Time Temp Pulse Resp B/P (MAP) Pulse Ox O2 Delivery O2 Flow Rate FiO2 09/15/16 07:45 Nasal Cannula 2.0 09/15/16 07:41 36.9 98 18 125/70 (88) 98 Nasal Cannula 2.0 09/15/16 04:20 37.9 110 18 162/81 (108) 98 Nasal Cannula 2.0 09/15/16 04:00 Nasal Cannula 2.0 09/15/16 00:00 Nasal Cannula 2.0 09/14/16 23:15 36.8 118 20 153/87 (109) 93 Room Air 09/14/16 22:31 37.0 102 18 145/80 Room Air 09/14/16 20:30 101 18 145/82 95 Room Air 09/14/16 19:45 111 18 139/81 93 Room Air 09/14/16 18:34 113 09/14/16 17:56 109 18 145/81 92 Room Air 09/14/16 16:09 101 18 157/80 95 Room Air 09/14/16 15:29 103 18 146/102 92 Room Air 09/14/16 14:32 115 09/14/16 14:30 37.1 116 16 236/137 90 Room Air General Appearance: WD/WN, no apparent distress Head: normocephalic, atraumatic Eyes: sclerae normal ENT: hearing grossly normal Neck: trachea midline Respiratory/Chest: lungs clear, normal breath sounds, no respiratory distress, no accessory muscle use Cardiovascular: regular rate, rhythm, no murmur Abdomen/GI: normal bowel sounds, non tender, soft, no organomegaly Extremities/Musculoskelatal: normal inspection Neurologic/Psych: alert, normal mood/affect, oriented x 3 Skin: normal color, warm/dry, no rash (Sandra Gallardo ., LEO) Laboratory Results Last 24 Hours Test 09/14/16 14:38 09/14/16 15:22 09/14/16 19:22 09/14/16 19:36 White Blood Count 8.69 K/uL Red Blood Count 4.41 M/uL Hemoglobin 14.5 g/dL Hematocrit 41.6 % Mean Corpuscular Volume 94.3 fL Mean Corpuscular Hemoglobin 32.9 pg Mean Corpuscular Hemoglobin Concent 34.9 g/dl Platelet Count 189 K/uL Mean Platelet Volume 9.8 fL Neutrophils (%) (Auto) 74.2 % Lymphocytes (%) (Auto) 13.5 % Monocytes (%) (Auto) 10.9 % Eosinophils (%) (Auto) 1.0 % Basophils (%) (Auto) 0.2 % Neutrophils # (Auto) 6.44 K/uL Lymphocytes # (Auto) 1.17 K/uL Monocytes # (Auto) 0.95 K/uL Eosinophils # (Auto) 0.09 K/uL Basophils # (Auto) 0.02 K/uL RDW Standard Deviation 42.8 fL RDW Coefficient of Variation 12.5 % Immature Granulocyte % (Auto) 0.2 % Immature Granulocyte # (Auto) 0.02 K/uL Stomatocytes 1+ Sodium Level 131 mmol/L Potassium Level 4.0 mmol/L Chloride Level 93 mmol/L Carbon Dioxide Level 25 mmol/L Anion Gap 13.0 mmol/L Blood Urea Nitrogen 15 mg/dl Creatinine 0.86 mg/dl Est Creatinine Clear Calc Drug Dose 57.4 ml/min Estimated GFR () 74.5 Estimated GFR (Non- 64.3 BUN/Creatinine Ratio 17.1 Random Glucose 136 mg/dl Calcium Level 9.1 mg/dl Total Bilirubin 0.6 mg/dl Direct Bilirubin 0.1 mg/dl Aspartate Amino Transf (AST/SGOT) 20 U/L Alanine Aminotransferase (ALT/SGPT) 21 U/L Alkaline Phosphatase 71 U/L Total Protein 7.2 gm/dl Albumin 3.4 gm/dl Lyme Disease IgG Antibody NEG Lyme Disease IgM Antibody NEG Lactic Acid Level 1.0 mmol/L Synovial Fluid Source KNEE Synovial Fluid Color YELLOW Synovial Fluid Appearance TURBID Synovial Fluid WBC 1770 /uL Synovial Fluid RBC < 3000 /uL Synovial Fluid Polynuclear WBCs % 55.8 % Synovial Fluid Mononuclear WBCs % 44.2 % Urine Color YELLOW Urine Appearance CLEAR Urine pH 6.5 Urine Specific [place] 1.022 Urine Protein NEG Urine Glucose (UA) NEG Urine Ketones NEG Urine Occult Blood NEG Urine Nitrite NEG Urine Bilirubin NEG Urine Urobilinogen NEG Urine Leukocyte Esterase NEG Urine WBC (Auto) 1-5 /hpf Urine RBC (Auto) 0-4 /hpf Urine Hyaline Casts (Auto) 0 /lpf Urine Epithelial Cells (Auto) 10-20 /lpf Urine Bacteria (Auto) NEG Test 09/14/16 23:37 09/15/16 06:47 Troponin I 0.028 ng/ml 0.076 ng/ml White Blood Count 6.44 K/uL Red Blood Count 3.90 M/uL Hemoglobin 12.8 g/dL Hematocrit 37.2 % Mean Corpuscular Volume 95.4 fL Mean Corpuscular Hemoglobin 32.8 pg Mean Corpuscular Hemoglobin Concent 34.4 g/dl Platelet Count 146 K/uL Mean Platelet Volume 9.7 fL Neutrophils (%) (Auto) 75.6 % Lymphocytes (%) (Auto) 12.9 % Monocytes (%) (Auto) 9.8 % Eosinophils (%) (Auto) 1.1 % Basophils (%) (Auto) 0.3 % Neutrophils # (Auto) 4.87 K/uL Lymphocytes # (Auto) 0.83 K/uL Monocytes # (Auto) 0.63 K/uL Eosinophils # (Auto) 0.07 K/uL Basophils # (Auto) 0.02 K/uL RDW Standard Deviation 43.8 fL RDW Coefficient of Variation 12.8 % Immature Granulocyte % (Auto) 0.3 % Immature Granulocyte # (Auto) 0.02 K/uL Prothrombin Time 11.0 SECONDS Prothromb Time International Ratio 1.0 Activated Partial Thromboplast Time 28.5 SECONDS Partial Thromboplastin Ratio 1.1 Sodium Level 136 mmol/L Potassium Level 3.6 mmol/L Chloride Level 102 mmol/L Carbon Dioxide Level 29 mmol/L Anion Gap 5.0 mmol/L Blood Urea Nitrogen 12 mg/dl Creatinine 0.87 mg/dl Est Creatinine Clear Calc Drug Dose 56.7 ml/min Estimated GFR () 73.4 Estimated GFR (Non- 63.4 BUN/Creatinine Ratio 13.8 Random Glucose 86 mg/dl Calcium Level 8.3 mg/dl Total Bilirubin 0.6 mg/dl Aspartate Amino Transf (AST/SGOT) 17 U/L Alanine Aminotransferase (ALT/SGPT) 19 U/L Alkaline Phosphatase 56 U/L Total Protein 6.1 gm/dl Albumin 2.7 gm/dl Globulin 3.4 gm/dl Albumin/Globulin Ratio 0.8 Amylase Level 64 U/L Lipase 301 U/L (Sandra Gallardo ., LEO) Assessment & Plan Epigastric Abdominal Pain Nausea History of known Cholelithiasis - Vitals stable - no leukocytosis - Total bili, LFTs, amylase and lipase within normal limits - abdominal examination benign, mild tenderness in epigastrium, no RUQ abdominal pain, negative Johnson's Increase in Troponin today 0.076 (yesterday 0.028) EKG shows normal sinus, inferior infarct on or before 09/14/2016, no change from previous, patient having no chest pain/pressure, shortness of breath or difficulty breathing Plan: No surgical indication at this time. Patients symptoms of abdominal pain mostly epigastric on admission and have since resolved. No further nausea or vomiting. Do not feel an ultrasound or MRCP is warranted at this time. Continue management established by medicine service Our services signing off at this time, please call with any questions or concerns Dr. Pang has seen and examined patient, agrees with above. (Sandra Gallardo ., LEO) Patient examined and discussed with Sandra Gallardo PA-C. María Kunz is a 81 year old woman who was admitted with abdominal pain which started approximately 2 days ago. States she started having chills, went to bed, then woke up with epigastric pain. Pain was constant, associated with nausea and vomiting. She has known gallstones, which were seen on CT scan imaging. There are no lab abnormalities suggesting bile duct obstruction or infection. Pain has improved since admission, she is now tolerating a clear liquid diet and would like more food. Picture does not seem consistent with symptomatic cholelithiasis or biliary disease at this time. -No acute surgical intervention needed -OK to advance diet as tolerated from surgical perspective -Please call with any further concerns or questions (Jazzy Pang M.D.)
[2016-09-15] MEDS: ENOXAPARIN 40 MG/0.4 ML SYR SQ SCH (10:08)
[2016-09-15] MEDS: ACETAMINOPHEN 325 MG TAB PO PRN (10:08)
[2016-09-15] MEDS: VANCOMYCIN INJ 1,000 MG in SODIUM CHLORIDE 0.9% 250ML 250 ML IV SCH ×2 (10:08→23:40)
[2016-09-15 11:30] VITALS: BP 133/75; PULSE 98; TEMP 37.1; O2SAT 91
--- NOTE | 2016-09-15 11:48 | Rheumatology Progress Note ---
Subjective Date of Service Sep 15, 2016. Subjective Pt evaluation today including: chart review I discussed case last night with Dr Yap and today with Dr Mckinnon. Patient has just been seen [place] rheuamtology on Thursday with no issues - feeling better. Now with abd pain, right knee pain and swelling and fever/chills. no evidence for pseudogout or gout to explain knee effusion. is on abx for possible infectious etiology. knee culture pending. at home on pred 15mg daily chronically and just started imuran 2 weeks ago. hold imuran for now and would agree with that. would suggest IV solumedrol x 1 dose. If overall improves except right knee - we can see as outpatient this thursday in [place] for aspiration and injection. No charge for this note as inpatient consult was not done. strictly phone consultation and chart review. please contact with any issues or if formal consult needs to be done.
--- NOTE | 2016-09-15 12:47 | Progress Note ---
Internal Med Progress Note Date of Service: Sep 15, 2016. Provider Documentation: SUBJECTIVE: The patient was seen and examined Complains of back pain with radiculopathy to the right leg No Bladder and or bowel problem Right Knee pain is a little better OBJECTIVE: Vital Signs-as noted below Exam: General-Minimal distress at rest Has Rheumatoid changes in bilateral hands Eyes-normal ENT-normal Neck-supple Lungs-Bilateral crackles at the bases Heart-Regular,no murmur appreciated Abdomen-Benign,no masses Extremities-Trace edema Has right knee swelling ,minimally tender and warmth Movement moderately painful Neuro-AAOx3 Lab data as noted below. ASSESSMENT & PLAN: RIGHT KNEE PAIN with EFFUSION Arthrocentesis performed by ED physician.No signs of Septic Arthritis,No Crystals identified Discussed with Dr Casillas-advised 40 of Solumedrol IV x1 Continue current dose of Prednisone Can see her early in [facility] for Aspiration and joint injection if she is discharged CHOLELITHIASIS without any Cholecystitis Experiencing abdominal pain and nausea. Known prior history of cholelithiasis. CT demonstrates cholelithiasis without apparent cholecystitis or choledocholithiasis. Check f/u LFT's with amylase and lipase in the morning-unremarkable . Consult General Surgery-appreciate input MALAISE, CHILLS with generalized weakness Immunocompromise secondary to long-term therapy with prednisone and recent initiation of azathioprine. Chest x-ray interpreted as possible left lower lobe pneumonia, but fever chronic interstitial lung disease and possible atelectasis. Known prior history of cholelithiasis. CT demonstrates cholelithiasis without apparent cholecystitis or choledocholithiasis. History of diverticulosis, but no apparent diverticulitis per CT imaging. New onset right knee pain / effusion. UA essentially negative, so UTI unlikely. Blood cultures obtained in ED.-culture pending Arthrocentesis performed -no septic arthritis ,no crystals identified. Empiric antibiotic therapy with vancomycin and piperacillin / tazobactam pending culture results. Await Culture before discontinue antibiotics . Back Pain with Right Radiculopathy No bowel and bladder problem MRI to evaluate the radicular pain May need Ortho evaluation CHEST PAIN-resolved Patient experiencing some chest tightness. No known history of ischemic heart disease. EKG as noted above. Check cardiac markers.-unremarkable ofr any ACS HYPERTENSION Initial BP in ED markedly elevated, repeat readings improved. Continue Rx with metoprolol and lisinopril. DM TYPE 2 Diet controlled. Hgb A1C in clinic on 08/27/16 was 7.1. Follow. SJGREN'S / AUTOIMMUNE HEPATITIS / INTERSTITIAL LUNG DISEASE Continue prednisone for now. Hold azathioprine until active infection ruled out. No acute symptoms except right knee pain and effusion DVT PROPHYLAXIS Moderate risk for DVT. SCD's. SQ enoxaparin. Ambulate. RESUSCITATION STATUS Level 1 DISPOSITION Observation status on Telemetry Unit. Expected discharge to home. Internal Medicine follow-up with Dr. Yoon. Rheumatology follow-up with Roz Casillas. Pulmonary follow-up with Dr. Chavarria. Likely to discharge in a day or two Vital Signs: Date Time Temp Pulse Resp B/P (MAP) Pulse Ox O2 Delivery O2 Flow Rate FiO2 09/15/16 12:00 Nasal Cannula 2.0 09/15/16 11:30 37.1 98 18 133/75 (94) 91 Room Air 09/15/16 07:45 Nasal Cannula 2.0 09/15/16 07:41 36.9 98 18 125/70 (88) 98 Nasal Cannula 2.0 09/15/16 04:20 37.9 110 18 162/81 (108) 98 Nasal Cannula 2.0 09/15/16 04:00 Nasal Cannula 2.0 09/15/16 00:00 Nasal Cannula 2.0 09/14/16 23:15 36.8 118 20 153/87 (109) 93 Room Air 09/14/16 22:31 37.0 102 18 145/80 Room Air 09/14/16 20:30 101 18 145/82 95 Room Air 09/14/16 19:45 111 18 139/81 93 Room Air 09/14/16 18:34 113 09/14/16 17:56 109 18 145/81 92 Room Air 09/14/16 16:09 101 18 157/80 95 Room Air 09/14/16 15:29 103 18 146/102 92 Room Air 09/14/16 14:32 115 09/14/16 14:30 37.1 116 16 236/137 90 Room Air Lab Results: Results Past 24 Hours Test 09/14/16 14:38 09/14/16 15:22 09/14/16 19:22 09/14/16 19:36 Range/Units White Blood Count 8.69 4.8-10.8 K/uL Red Blood Count 4.41 4.2-5.4 M/uL Hemoglobin 14.5 12.0-16.0 g/dL Hematocrit 41.6 37-47 % Mean Corpuscular Volume 94.3 80-100 fL Mean Corpuscular Hemoglobin 32.9 25-34 pg Mean Corpuscular Hemoglobin Concent 34.9 32-36 g/dl Platelet Count 189 130-400 K/uL Mean Platelet Volume 9.8 7.4-10.4 fL Neutrophils (%) (Auto) 74.2 % Lymphocytes (%) (Auto) 13.5 % Monocytes (%) (Auto) 10.9 % Eosinophils (%) (Auto) 1.0 % Basophils (%) (Auto) 0.2 % Neutrophils # (Auto) 6.44 1.4-6.5 K/uL Lymphocytes # (Auto) 1.17 1.2-3.4 K/uL Monocytes # (Auto) 0.95 0.11-0.59 K/uL Eosinophils # (Auto) 0.09 0-0.5 K/uL Basophils # (Auto) 0.02 0-0.2 K/uL RDW Standard Deviation 42.8 36.4-46.3 fL RDW Coefficient of Variation 12.5 11.5-14.5 % Immature Granulocyte % (Auto) 0.2 % Immature Granulocyte # (Auto) 0.02 0.00-0.02 K/uL Stomatocytes 1+ Sodium Level 131 136-145 mmol/L Potassium Level 4.0 3.5-5.1 mmol/L Chloride Level 93 98-107 mmol/L Carbon Dioxide Level 25 21-32 mmol/L Anion Gap 13.0 3-11 mmol/L Blood Urea Nitrogen 15 7-18 mg/dl Creatinine 0.86 0.60-1.20 mg/dl Est Creatinine Clear Calc Drug Dose 57.4 ml/min Estimated GFR () 74.5 Estimated GFR (Non- 64.3 BUN/Creatinine Ratio 17.1 10-20 Random Glucose 136 70-99 mg/dl Calcium Level 9.1 8.5-10.1 mg/dl Total Bilirubin 0.6 0.2-1 mg/dl Direct Bilirubin 0.1 0-0.2 mg/dl Aspartate Amino Transf (AST/SGOT) 20 15-37 U/L Alanine Aminotransferase (ALT/SGPT) 21 12-78 U/L Alkaline Phosphatase 71 45-117 U/L Total Protein 7.2 6.4-8.2 gm/dl Albumin 3.4 3.4-5.0 gm/dl Lyme Disease IgG Antibody NEG NEG Lyme Disease IgM Antibody NEG NEG Lactic Acid Level 1.0 0.4-2.0 mmol/L Synovial Fluid Source KNEE Synovial Fluid Color YELLOW Synovial Fluid Appearance TURBID Synovial Fluid WBC 1770 0-200 /uL Synovial Fluid RBC < 3000 /uL Synovial Fluid Polynuclear WBCs % 55.8 % Synovial Fluid Mononuclear WBCs % 44.2 % Synovial Fluid Crystals Urine Color YELLOW Urine Appearance CLEAR CLEAR Urine pH 6.5 4.5-7.5 Urine Specific [place] 1.022 1.000-1.030 Urine Protein NEG NEG Urine Glucose (UA) NEG NEG Urine Ketones NEG NEG Urine Occult Blood NEG NEG Urine Nitrite NEG NEG Urine Bilirubin NEG NEG Urine Urobilinogen NEG NEG Urine Leukocyte Esterase NEG NEG Urine WBC (Auto) 1-5 0-5 /hpf Urine RBC (Auto) 0-4 0-4 /hpf Urine Hyaline Casts (Auto) 0 0-5 /lpf Urine Epithelial Cells (Auto) 10-20 0-5 /lpf Urine Bacteria (Auto) NEG NEG Test 09/14/16 23:37 09/15/16 06:47 Range/Units Troponin I 0.028 0.076 0-0.045 ng/ml White Blood Count 6.44 4.8-10.8 K/uL Red Blood Count 3.90 4.2-5.4 M/uL Hemoglobin 12.8 12.0-16.0 g/dL Hematocrit 37.2 37-47 % Mean Corpuscular Volume 95.4 80-100 fL Mean Corpuscular Hemoglobin 32.8 25-34 pg Mean Corpuscular Hemoglobin Concent 34.4 32-36 g/dl Platelet Count 146 130-400 K/uL Mean Platelet Volume 9.7 7.4-10.4 fL Neutrophils (%) (Auto) 75.6 % Lymphocytes (%) (Auto) 12.9 % Monocytes (%) (Auto) 9.8 % Eosinophils (%) (Auto) 1.1 % Basophils (%) (Auto) 0.3 % Neutrophils # (Auto) 4.87 1.4-6.5 K/uL Lymphocytes # (Auto) 0.83 1.2-3.4 K/uL Monocytes # (Auto) 0.63 0.11-0.59 K/uL Eosinophils # (Auto) 0.07 0-0.5 K/uL Basophils # (Auto) 0.02 0-0.2 K/uL RDW Standard Deviation 43.8 36.4-46.3 fL RDW Coefficient of Variation 12.8 11.5-14.5 % Immature Granulocyte % (Auto) 0.3 % Immature Granulocyte # (Auto) 0.02 0.00-0.02 K/uL Prothrombin Time 11.0 9.0-12.0 SECONDS Prothromb Time International Ratio 1.0 0.9-1.1 Activated Partial Thromboplast Time 28.5 21.0-31.0 SECONDS Partial Thromboplastin Ratio 1.1 Sodium Level 136 136-145 mmol/L Potassium Level 3.6 3.5-5.1 mmol/L Chloride Level 102 98-107 mmol/L Carbon Dioxide Level 29 21-32 mmol/L Anion Gap 5.0 3-11 mmol/L Blood Urea Nitrogen 12 7-18 mg/dl Creatinine 0.87 0.60-1.20 mg/dl Est Creatinine Clear Calc Drug Dose 56.7 ml/min Estimated GFR () 73.4 Estimated GFR (Non- 63.4 BUN/Creatinine Ratio 13.8 10-20 Random Glucose 86 70-99 mg/dl Calcium Level 8.3 8.5-10.1 mg/dl Total Bilirubin 0.6 0.2-1 mg/dl Aspartate Amino Transf (AST/SGOT) 17 15-37 U/L Alanine Aminotransferase (ALT/SGPT) 19 12-78 U/L Alkaline Phosphatase 56 45-117 U/L Total Protein 6.1 6.4-8.2 gm/dl Albumin 2.7 3.4-5.0 gm/dl Globulin 3.4 2.5-4.0 gm/dl Albumin/Globulin Ratio 0.8 0.9-2 Amylase Level 64 25-115 U/L Lipase 301 73-393 U/L Microbiology Results 09/14/16 Blood Culture, Received Pending 09/14/16 Blood Culture, Received Pending 09/14/16 Gram Stain - Final, Resulted 09/14/16 Bacterial Culture - Preliminary, Resulted NO GROWTH TO DATE. 09/14/16 Gram Stain - Final, Resulted 09/14/16 Bacterial Culture - Preliminary, Resulted NO GROWTH TO DATE.
[2016-09-15] MEDS ORDERED: METHYLPREDNISOLONE IV 40 MG in SYRINGE 0 ML IV ONE (13:00)
[2016-09-15 15:56] VITALS: BP 145/81; PULSE 87; TEMP 36.4; O2SAT 95
[2016-09-15 19:38] VITALS: BP 133/75; PULSE 83; TEMP 36.6; O2SAT 94
--- NOTE | 2016-09-15 21:56 | DIAGNOSTIC IMAGING REPORT ---
MRI OF THE LUMBAR SPINE WITHOUT IV CONTRAST CLINICAL HISTORY: Right-sided lumbar radiculopathy. COMPARISON STUDY: Abdominal CT dated 09/14/2016. TECHNIQUE: MRI of the lumbar spine is performed utilizing various T1 and T2-weighted sequences in the axial and sagittal planes. IV contrast was not administered for this examination. The examination is degraded by motion artifact. FINDINGS: Lumbar spine: Marrow signal intensity is markedly heterogeneous. Vertebral body height is maintained throughout the lumbar spine. There is grade 1 anterolisthesis at L4-L5. Alignment is otherwise preserved. There is straightening of the lumbar lordosis. No destructive bony lesion is clearly identified. The transverse and spinous processes are intact as imaged. There is no evidence of spondylolysis. Advanced degenerative endplate change is seen at all lumbar levels. Endplate edema is seen at T12-L1, L1-L2, L2-L3, and L4-L5. Intervertebral discs: Degenerative disc desiccation and loss of height is seen at all levels. Loss of height is severe at T12-L1, L1-L2, L2-L3, L4-L5, and L5-S1. Spinal cord: The visualized spinal cord is normal in morphology and signal intensity. The conus medullaris terminates at the L1-L2 level. The nerve roots of the cauda equina are normal in morphology. T12-L1: There is a posterior disc bulge. There is no significant acquired compromise of the central canal. There is likely bilateral neural foraminal stenosis. This is only seen on the sagittal series. L1-L2: There is a posterior disc bulge. There is no significant acquired compromise of the central canal. There is bilateral subarticular stenosis. There is mild left-sided neural foraminal stenosis. L2-L3: There is a large posterior disc bulge with annular fissure. There is only mild acquired compromise of the central canal at this level with a minimum AP diameter of 11 mm. There is bilateral subarticular stenosis with possible impingement on the transiting bilateral nerve roots. Facet arthropathy causes moderate left and minimal right neural foraminal stenosis. L3-L4: There is minimal posterior disc bulge and annular fissure. Facet arthropathy is of no consequence. The neural foramina are widely patent. L4-L5: There is a small posterior disc bulge with annular fissure. In conjunction with anterolisthesis, there is mild central canal stenosis at this level with a minimum AP diameter of 9.5 mm. There is bilateral subarticular stenosis with probable impingement on the exiting bilateral L4 nerve roots. The neural foramina are patent. Facet arthropathy is of no consequence. L5-S1: There is a small posterior disc bulge. The central canal appears clear. Facet arthropathy is of no consequence. The neural foramina are patent. Sacrum: The visualized sacrum is normal in morphology and signal intensity. Soft tissues: There is complete fatty atrophy of the paraspinous musculature. The partially imaged retroperitoneal structures are grossly unremarkable but incompletely evaluated. IMPRESSION: 1. There is no disc herniation or severe central canal stenosis. 2. Multilevel lumbosacral spondylosis as detailed above. See discussion for detailed level by level analysis. 3. Degenerative disc disease with advanced multilevel degenerative endplate and endplate edema change as above. 4. No destructive bony lesion is identified. Marrow signal intensity is heterogeneous. Dictated: 09/15/2016 9:34 PM Transcribed: 09/15/2016 9:56 PM LOUIS_Kyler Electronically signed by: Alejandro Tom M.D. 09/15/2016 10:03 PM Dictated Date/Time: 09/15/2016 9:34 PM
[2016-09-15] MEDS ORDERED: DEXTROSE 50% 50 ML SYR IV PRN (22:45)
[2016-09-15] MEDS ORDERED: GLUCOSE 40% GEL 15 GM TUBE PO PRN (22:45)
[2016-09-15] MEDS ORDERED: GLUCOSE 10 TABS/TUBE PO PRN (22:45)
[2016-09-15] MEDS ORDERED: GLUCAGON FOR INJ 1 MG VIAL SQ PRN (22:45)
[2016-09-15] MEDS: INSULIN ASPART 100 UNITS/ML 3 ML PEN SC SCH (23:12)
[2016-09-16] VITALS (10 sets, daily range): BP systolic 124–172; BP diastolic 68–86; PULSE 82–92; TEMP 36.3–37.2; O2SAT 94–100
[2016-09-16] MEDS: PIPERACILL/TAZOBAC IV 3.375 GM in DEXTROSE 5% 100ML 100 ML IV SCH ×3 (01:55→18:23)
[2016-09-16] MEDS: LEVOTHYROXINE 50 MCG TAB PO SCH (06:11)
[2016-09-16 06:59] LABS: HEMATOCRIT 35.6 % (37-47); MEAN CELL VOLUME 94.2 fL (80-100); MEAN CORPUSCULAR HEMOGLOBIN 32.3 pg (25-34); MEAN CORPUSCULAR HGB CONC 34.3 g/dl (32-36); MEAN PLATELET VOLUME 9.7 fL (7.4-10.4); PLATELET COUNT 165 K/uL (130-400); RED BLOOD COUNT 3.78 M/uL (4.2-5.4); WHITE BLOOD COUNT 6.83 K/uL (4.8-10.8)
[2016-09-16 07:34] LABS: CALCIUM 8.8 mg/dl (8.5-10.1); CREATININE 0.87 mg/dl (0.60-1.20); MAGNESIUM 2.1 mg/dl (1.8-2.4); PHOSPHORUS 2.7 mg/dl (2.5-4.9); POTASSIUM 3.8 mmol/L (3.5-5.1)
[2016-09-16] MEDS: LISINOPRIL 5 MG TAB PO SCH (07:47)
[2016-09-16] MEDS: METOPROLOL SUCC 25MG EXT REL TAB PO SCH (07:47)
[2016-09-16] MEDS: FAMOTIDINE 20 MG TAB PO SCH (07:47)
[2016-09-16] MEDS: ENOXAPARIN 40 MG/0.4 ML SYR SQ SCH (07:48)
[2016-09-16] MEDS: INSULIN ASPART 100 UNITS/ML 3 ML PEN SC SCH ×4 (07:49→21:12)
[2016-09-16] MEDS ORDERED: VANCOMYCIN TROUGH ONE (13:30)
[2016-09-16] MEDS: VANCOMYCIN INJ 1,000 MG in SODIUM CHLORIDE 0.9% 250ML 250 ML IV SCH (14:11)
--- NOTE | 2016-09-16 16:31 | Pharmacy Progress Note ---
Pharmacy Abx Dose Progress Nt Date of Service Sep 16, 2016. Pharmacy Dosing Scope The patient is currently receiving the following antimicrobial agents per Pharmacy consult: Vancomycin 1000 mg (~14mg/kg) IV every 14 hours for septic arthritis Objective Height (Feet): 5 Height (Inches): 10.00 Weight (Kilograms): 71.100 Vital Signs (Past 12Hrs) Vital Signs Past 12 Hours Date Time Temp Pulse Resp B/P (MAP) Pulse Ox O2 Delivery O2 Flow Rate FiO2 09/16/16 15:59 36.8 85 18 158/86 (110) 96 Room Air 09/16/16 12:00 Room Air 09/16/16 11:24 36.9 82 18 124/71 (88) 96 Room Air 09/16/16 07:45 Room Air 09/16/16 07:10 36.5 86 20 131/74 (93) 95 Room Air Lab Results (24Hrs) Laboratory Tests (24 Hours) Test 09/16/16 06:35 White Blood Count 6.83 K/uL (4.8-10.8) Micro Results Date/Time Source Procedure Growth Status 09/14/16 15:33 Blood Blood Culture - Preliminary NO GROWTH TO DATE. Resulted 09/14/16 15:22 Blood Blood Culture - Preliminary NO GROWTH TO DATE. Resulted 09/14/16 19:22 Joint Fluid/Space (Synovial) Knee Right Gram Stain - Final Resulted 09/14/16 19:22 Joint Fluid/Space (Synovial) Knee Right Bacterial Culture - Preliminary NO GROWTH TO DATE. Resulted 09/14/16 19:22 Joint Fluid/Space (Synovial) Knee Right Gram Stain - Final Complete 09/14/16 19:22 Joint Fluid/Space (Synovial) Knee Right Bacterial Culture - Final NO GROWTH Complete Risk Factors for Resistance * Immunocompromised (prednisone and azathioprine for Sjogren's syndrome) Assessment & Plan Assessment 81 year old female receiving Vancomycin for treatment of septic arthritis Day # 310 of antimicrobial therapy Plan Vancomycin IV * Trough level of 12.8 mcg/mL is subtherapeutic. * Change to 1250 mg (~18mg/kg) IV every 14 hours * Dose increased by ~25% in order to increase serum concentrations by ~25% and reach therapeutic levels * Goal trough level for septic arthritis : 15 to 20 mcg/mL * Trough level ordered for: 09/18/16 ~30 minutes before the 2200 dose Pharmacy will continue to follow and will adjust dose/frequency as necessary. Thank you.
[2016-09-16] MEDS: LACTOBACILLUS ACIDOPHILUS (FLORANEX) TAB PO SCH (17:15)
--- NOTE | 2016-09-16 17:17 | Progress Note ---
Internal Med Progress Note Date of Service: Sep 16, 2016. Provider Documentation: SUBJECTIVE: patient thinks swelling of her right knee slightly more than when she came in no pain at rest but has pain while trying to bend afebrile no chest pain or sob OBJECTIVE: Vital Signs-as noted below Exam: General-alert and oriented. Not in distress ENT-Normal hearing Neck-no neck masses supple Lungs-cta b/l no wheezing no crackles present Heart-s1 and s2 heard regular rate and rhythm no murmurs Abdomen-soft bowel sounds present non tender no distension Extremities- mild swelling of right knee joint. No erythema no warmth or tender Neuro-alert and oriented moves extremities Lab data as noted below. ASSESSMENT & PLAN: RIGHT KNEE PAIN with EFFUSION Arthrocentesis performed by ED physician.Cx no growth ,No Crystals identified Discussed with rheumatology Dr Casillas-advised 40 of Solumedrol IV x1 To Continue current dose of Prednisone Can see her early in [place] clinic for Aspiration and joint injection if she is discharged If no improvement will re discuss with rheumatology CHOLELITHIASIS without any Cholecystitis Experiencing abdominal pain and nausea. Known prior history of cholelithiasis. CT demonstrates cholelithiasis without apparent cholecystitis or choledocholithiasis. seen by surgery appreciate inputs currently stable MALAISE, CHILLS with generalized weakness Immunocompromise secondary to long-term therapy with prednisone and recent initiation of azathioprine. Chest x-ray interpreted as possible left lower lobe pneumonia, but fever chronic interstitial lung disease and possible atelectasis. on empiric abx vanco and Zosyn all cx no growth so far. will monitor . Back Pain with Right Radiculopathy No bowel and bladder problem MRI- multilevel lumbosacral spondylosis will consult Ortho CHEST PAIN-resolved HYPERTENSION On metoprolol and lisinopril. Will monitor DM TYPE 2 Diet controlled. Hgb A1C in clinic on 08/27/16 was 7.1. Follow. 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 Hold azathioprine until active infection ruled out. No acute symptoms except right knee pain and effusion DVT PROPHYLAXIS SCD's. SQ enoxaparin. Ambulate. RESUSCITATION STATUS Level 1 DISPOSITION pt/ot Expected discharge to home in 1-2 days Vital Signs: Date Time Temp Pulse Resp B/P (MAP) Pulse Ox O2 Delivery O2 Flow Rate FiO2 09/16/16 16:00 96 Room Air 8/1/17 15:59 36.8 85 18 158/86 (110) 96 Room Air 09/16/16 12:00 Room Air 09/16/16 11:24 36.9 82 18 124/71 (88) 96 Room Air 09/16/16 07:45 Room Air 09/16/16 07:10 36.5 86 20 131/74 (93) 95 Room Air 09/16/16 04:13 36.7 84 20 130/68 (88) 100 2.0 09/16/16 04:00 94 Nasal Cannula 2.0 09/16/16 00:00 94 Nasal Cannula 2.0 09/16/16 00:00 36.3 92 20 124/69 (87) 94 Room Air 09/15/16 20:32 Room Air 09/15/16 19:38 36.6 83 18 133/75 (94) 94 Room Air Lab Results: Results Past 24 Hours Test 09/15/16 22:29 09/16/16 06:35 09/16/16 07:15 09/16/16 11:31 Range/Units Bedside Glucose 273 125 164 70-90 mg/dl White Blood Count 6.83 4.8-10.8 K/uL Red Blood Count 3.78 4.2-5.4 M/uL Hemoglobin 12.2 12.0-16.0 g/dL Hematocrit 35.6 37-47 % Mean Corpuscular Volume 94.2 80-100 fL Mean Corpuscular Hemoglobin 32.3 25-34 pg Mean Corpuscular Hemoglobin Concent 34.3 32-36 g/dl RDW Standard Deviation 42.2 36.4-46.3 fL RDW Coefficient of Variation 12.4 11.5-14.5 % Platelet Count 165 130-400 K/uL Mean Platelet Volume 9.7 7.4-10.4 fL Sodium Level 137 136-145 mmol/L Potassium Level 3.8 3.5-5.1 mmol/L Chloride Level 103 98-107 mmol/L Carbon Dioxide Level 29 21-32 mmol/L Anion Gap 5.0 3-11 mmol/L Blood Urea Nitrogen 12 7-18 mg/dl Creatinine 0.87 0.60-1.20 mg/dl Est Creatinine Clear Calc Drug Dose 56.7 ml/min Estimated GFR () 73.4 Estimated GFR (Non- 63.4 BUN/Creatinine Ratio 14.0 10-20 Random Glucose 126 70-99 mg/dl Calcium Level 8.8 8.5-10.1 mg/dl Phosphorus Level 2.7 2.5-4.9 mg/dl Magnesium Level 2.1 1.8-2.4 mg/dl Test 09/16/16 13:56 09/16/16 16:31 Range/Units Vancomycin Level Trough 12.8 SEE COMMENT mcg/ml Bedside Glucose 154 70-90 mg/dl
--- NOTE | 2016-09-16 19:26 | DIAGNOSTIC IMAGING REPORT ---
RIGHT KNEE 3 VIEWS CLINICAL HISTORY: Right knee pain and swelling. FINDINGS: AP, crosstable lateral, and sunrise views of the right knee are obtained. No prior studies are available for comparison at the time of dictation. The skeletal structures are osteopenic. No fracture is seen. There is mild to moderate tricompartmental degenerative joint space narrowing, greatest in the medial and patellofemoral compartments where there is mild bony sclerosis an osteochondral irregularity. There are marginal osteophytes and patellar enthesophytes. A large joint effusion is identified. A 6 mm calcified joint body is suspected posteriorly. Soft tissue swelling is present around the knee. There is atherosclerotic calcification of the popliteal artery. A calcified fabella is incidentally noted. IMPRESSION: 1. Soft tissue swelling and joint effusion. No acute bony abnormality is identified. 2. Osteopenia and arthritic change as above. A calcified joint body is suspected. Electronically signed by: Alejandro oTm M.D. 09/16/2016 7:25 PM Dictated Date/Time: 09/16/2016 7:23 PM
[2016-09-17] VITALS (8 sets, daily range): BP systolic 132–183; BP diastolic 76–101; PULSE 72–93; TEMP 36.5–37; O2SAT 94–98
[2016-09-17] MEDS: PIPERACILL/TAZOBAC IV 3.375 GM in DEXTROSE 5% 100ML 100 ML IV SCH ×3 (01:44→18:03)
[2016-09-17] MEDS: ACETAMINOPHEN 325 MG TAB PO PRN ×2 (01:55→06:05)
[2016-09-17] MEDS ORDERED: LISINOPRIL 5 MG TAB PO ONE (02:10)
[2016-09-17] MEDS: VANCOMYCIN INJ 1,250 MG in SODIUM CHLORIDE 0.9% 250ML 250 ML IV SCH ×2 (04:06→17:20)
[2016-09-17] MEDS: LEVOTHYROXINE 50 MCG TAB PO SCH (06:06)
[2016-09-17] MEDS: LACTOBACILLUS ACIDOPHILUS (FLORANEX) TAB PO SCH ×3 (07:50→17:21)
[2016-09-17] MEDS: METOPROLOL SUCC 25MG EXT REL TAB PO SCH (07:50)
[2016-09-17] MEDS: FAMOTIDINE 20 MG TAB PO SCH (07:50)
[2016-09-17] MEDS: ENOXAPARIN 40 MG/0.4 ML SYR SQ SCH (07:51)
[2016-09-17] MEDS: INSULIN ASPART 100 UNITS/ML 3 ML PEN SC SCH ×4 (07:53→20:11)
[2016-09-17] MEDS ORDERED: CLONIDINE HCL 0.1 MG TAB PO PRN (11:30)
--- NOTE | 2016-09-17 13:08 | Orthopedic Consultation ---
Orthopedic Consultation Date of Consultation: Sep 17, 2016. Attending Physician: Gregory Mendoza MD Reason for Consultation: Lower back pain, right lower extremity radiculopathy History of Present Illness The very pleasant 81-year-old female who is having back and right leg pain for 2 + years. No specific accident trauma or fall. It radiates down the lumbar spine into the buttock posterior lateral thigh, knee. M numbness in the foot. Left leg is asymptomatic. Pain is reproduced when she ambulates. Sitting is pain related. She also needs between ice and heat for palliative control. Also takes Tylenol. Trialed to physical therapy at the recommendation of Dr. Bowen (without any long-term relief. Denies bowel or bladder dysfunction. Ambulates independently. Past Medical/Surgical History Medical Problems: (1) Pneumonia Status: Acute Family History Bladder cancer BROTHER COPD (chronic obstructive pulmonary disease) BROTHER SISTER Dementia FATHER Heart disease MOTHER Social History Smoking Status: Never Smoker Alcohol Use: rarely Marital Status: Occupation Status: retired Allergies Coded Allergies: Sulfamethoxazole w/Trimethoprim (Unverified Allergy, Severe, edema face/ lips/tongue, 09/14/16) Latex1 -Allergic Contact Dermititis (Unverified Allergy, Mild, LOCAL SKIN REACTION, 09/14/16) Niacin (Unverified Allergy, Mild, RASH, 09/14/16) Naproxen (Unverified Adverse Reaction, Intermediate, BURNING STOMACH, 09/14) Home Medications Scheduled Azathioprine (Imuran), 100 MG PO DAILY Famotidine (Pepcid), 10 MG PO DAILY PRN Vqebbdaa-Bqpasuoaleap-Lpulfnow (Artificial Tears), DIRECTED Ipratropium Lewis (Nasal) (Ipratropium Lewis), 2 SPRAYS SHEILA BID Levothyroxine Sodium (Synthroid), 50 MCG PO DAILY Lisinopril (Zestril), 5 MG PO DAILY Metoprolol Succ (Toprol Xl) (Toprol-Xl), 25 MG PO DAILY Prednisone (Prednisone), 15 MG PO DAILY Scheduled PRN Acetaminophen Tab (Tylenol), 325 MG PO DIRECTED PRN for Pain or Fever Albuterol Hfa (Ventolin Hfa), 2 PUFFS INH Q6H PRN for SOB/Wheezing Albuterol Sulf (Proventil 0.083% 2.5MG/3ML), 2.5 MG INH Q4H PRN for SOB/Wheezing Ipratropium Lewis (Atrovent 0.02% Soln), 1 VIAL INH Q4H PRN for SOB/Wheezing Lactic Acid (Ammonium Lactate Cream 12%), 1 APPLN TOP BID PRN for DRYNESS Triamcinolone Acet (Aristocort 0.1%), 1 APPLN EXT BID PRN for RASH Current Inpatient Medications Current Inpatient Medications Medications (Trade) Dose Ordered Sig/Nataly Route Start Time Stop Time Status Last Admin Dose Admin Ioversol (Optiray 320) 116 ml UD PRN IV 09/14/16 18:00 09/18/16 17:59 Ondansetron HCl (Zofran Inj) 4 mg Q6H PRN IV 09/14/16 19:45 10/14/16 19:44 Nitroglycerin (Nitrostat Tab) 0.4 mg UD PRN SL 09/14/16 19:45 10/14/16 19:44 Miscellaneous (Iv Fluids Completed) 1 ea PRN PRN N/A 09/14/16 20:00 09/14/17 19:59 Albuterol (Ventolin Hfa Inhaler) 2 puffs Q6H PRN INH 09/14/16 20:30 10/14/16 20:29 Famotidine (Pepcid Tab) 10 mg DAILY PO 09/15/16 09:00 10/15/16 08:59 09/17/16 07:50 10 MG Levothyroxine Sodium (Synthroid Tab) 50 mcg DAILYBB PO 09/15/16 06:30 10/15/16 06:59 09/17/16 06:06 50 MCG Metoprolol Succinate (Toprol Xl Tab) 25 mg DAILY PO 09/15/16 09:00 10/15/16 08:59 09/17/16 07:50 25 MG Prednisone (PredniSONE TAB) 15 mg DAILY PO 09/15/16 09:00 10/15/16 08:59 09/17/16 07:50 15 MG Artificial Tears (Artificial Tears) 2 drops Q1H PRN OPB 09/14/16 20:30 10/14/16 20:29 Piperacillin Sod/ Tazobactam Sod 3.375 gm/Dextrose 115 ml @ 28.75 mls/ hr Q8H IV 09/15/16 02:00 09/25/16 01:59 09/17/16 09:58 28.75 MLS/HR Vancomycin HCl (Consult) 1 ea UD PRN N/A 09/14/16 21:00 10/14/16 20:59 Piperacillin Sod/ Tazobactam Sod (Consult) 1 ea UD PRN N/A 09/14/16 21:00 10/14/16 20:59 Enoxaparin Sodium (Lovenox Inj) 40 mg QAM SQ 09/15/16 09:00 10/15/16 08:59 09/17/16 07:51 40 MG Acetaminophen (Tylenol Tab) 650 mg Q6H PRN PO 09/15/16 03:00 10/15/16 02:59 09/17/16 06:05 650 MG Insulin Aspart (novoLOG ASPART) SLIDING SCALE G... ACHS SC 09/16/16 06:30 10/16/16 06:29 09/17/16 12:49 2 UNITS Glucose (Glucose 40% Gel) 15-30 GRAMS 15 GRAMS... UD PRN PO 09/15/16 22:45 10/15/16 22:44 Glucose (Glucose Chew Tab) 4-8 Tablets 4 Tabl... UD PRN PO 09/15/16 22:45 10/15/16 22:44 Dextrose (Dextrose 50% 50ML Syringe) 25-50ML OF 50% DW IV FOR... UD PRN IV 09/15/16 22:45 10/15/16 22:44 Glucagon (Glucagon Inj) 1 mg UD PRN SQ 09/15/16 22:45 10/15/16 22:44 Vancomycin HCl 1250 mg/Sodium Chloride 275 ml @ 125 mls/hr Q14H IV 09/17/16 04:00 09/25/16 09:59 09/17/16 04:06 125 MLS/HR Lactobacillus Acidophilus (Floranex Tab) 4 tab TIDM PO 09/16/16 17:00 10/16/16 16:59 09/17/16 12:44 4 TAB Lisinopril (Zestril Tab) 5 mg DAILY PO 09/18/16 09:00 10/15/16 08:59 Clonidine HCl (Catapres Tab) 0.1 mg Q4 PRN PO 09/17/16 11:30 10/17/16 11:29 09/17/16 12:45 0.1 MG Review of Systems Cardiovascular: + chest pain Physical Exam Date Time Temp Pulse Resp B/P (MAP) Pulse Ox O2 Delivery O2 Flow Rate FiO2 09/17/16 12:40 178/77 (110) 09/17/16 11:33 36.7 91 17 183/101 (128) 96 181/100 (127) 09/17/16 08:20 36.5 76 18 158/88 (111) 94 161/90 (113) 09/17/16 07:45 Room Air 09/17/16 04:21 37.0 76 20 172/85 (114) 98 Nasal Cannula 2.0 09/17/16 04:00 Nasal Cannula 2.0 09/17/16 01:30 93 183/96 (125) 09/17/16 00:00 Nasal Cannula 2.0 09/16/16 23:51 37.2 85 20 172/84 (113) 95 Room Air 09/16/16 20:27 96 Room Air 09/16/16 18:53 36.9 82 16 151/82 (105) 96 09/16/16 16:00 96 Room Air 09/16/16 15:59 36.8 85 18 158/86 (110) 96 Room Air She is examined in bed in room 277. She is in no obvious distress. She is cooperative with exam. She has negative log rolling bilateral lower chemise. Negative tension signs bilaterally extremities. Modest breakaway weakness over the right quadriceps. Other strength is intact. Calf is soft and nontender bilaterally. No evidence of ankle clonus bilaterally. General Appearance: WD/WN, no apparent distress Head: normocephalic, atraumatic Eyes: normal inspection ENT: normal ENT inspection Neck: supple Cardiovascular: regular rate, rhythm Abdomen/GI: soft Back: normal inspection Extremities/Musculoskelatal: normal inspection, no calf tenderness Neurologic/Psych: no motor/sensory deficits Skin: normal color Laboratory Results Last 24 Hours Test 09/16/16 13:56 09/16/16 16:31 09/16/16 20:49 09/17/16 07:44 Vancomycin Level Trough 12.8 mcg/ml Bedside Glucose 154 mg/dl 155 mg/dl 84 mg/dl Test 09/17/16 11:26 Bedside Glucose 198 mg/dl Patient Name: ELOY YOST Unit Number: [id number] Dictated: 09/15/162133 Transcribed: 09/15/162155 Printed Date/Time: [~ rep prt dt]/[~ rep prt tm] [~ rep ct labl] - [~ rep ct ivnm] [facility] [place] [address] Dictated: 09/15/162133 Transcribed: 09/15/162155 Printed Date/Time: [~ rep prt dt]/[~ rep prt tm] [~ rep ct labl] - [~ rep ct ivnm] Patient: ELOY YOST Address1: [address] [facility] Rec: [id number] Address2: Acct ID: [id number] [facility] Zip: [place] [address] Date: 1935 Sex: F Room/Bed: [facility] Ref Phy: Marivel Yoon M.D. SC: [facility] Att Phy: Chelly Mckinnon M.D. Report #: [id number] Annie Phy: Marivel Yoon M.D. Test: LSWOC Admit Phy: Santos Yap M.D. Clinical Services Specialist: AMBROSIO Interpreting Phy: Alejandro Tom M.D. Diagnosis: CHEST PAIN, NAUSEA & VOMITING Ordering Phy: Chelly Mckinnon M.D. Service Date: 09/15/16 Admit Date: 09/14/1706/30/17 MNE: [id number] CONF: DICTATED BY: Alejandro Tom M.D.]] CC: Chelly Mckinnon M.D. Westrick, Diann, M.D. Endcc: [~ rep ct add3]] MRI OF THE LUMBAR SPINE WITHOUT IV CONTRAST CLINICAL HISTORY: Right-sided lumbar radiculopathy. COMPARISON STUDY: Abdominal CT dated 09/14/2016. TECHNIQUE: MRI of the lumbar spine is performed utilizing various T1 and T2-weighted sequences in the axial and sagittal planes. IV contrast was not administered for this examination. The examination is degraded by motion artifact. FINDINGS: Lumbar spine: Marrow signal intensity is markedly heterogeneous. Vertebral body height is maintained throughout the lumbar spine. There is grade 1 anterolisthesis at L4-L5. Alignment is otherwise preserved. There is straightening of the lumbar lordosis. No destructive bony lesion is clearly identified. The transverse and spinous processes are intact as imaged. There is no evidence of spondylolysis. Advanced degenerative endplate change is seen at all lumbar levels. Endplate edema is seen at T12-L1, L1-L2, L2-L3, and L4-L5. Intervertebral discs: Degenerative disc desiccation and loss of height is seen at all levels. Loss of height is severe at T12-L1, L1-L2, L2-L3, L4-L5, and L5-S1. Spinal cord: The visualized spinal cord is normal in morphology and signal intensity. The conus medullaris terminates at the L1-L2 level. The nerve roots of the cauda equina are normal in morphology. T12-L1: There is a posterior disc bulge. There is no significant acquired compromise of the central canal. There is likely bilateral neural foraminal stenosis. This is only seen on the sagittal series. L1-L2: There is a posterior disc bulge. There is no significant acquired compromise of the central canal. There is bilateral subarticular stenosis. There is mild left-sided neural foraminal stenosis. L2-L3: There is a large posterior disc bulge with annular fissure. There is only mild acquired compromise of the central canal at this level with a minimum AP diameter of 11 mm. There is bilateral subarticular stenosis with possible impingement on the transiting bilateral nerve roots. Facet arthropathy causes moderate left and minimal right neural foraminal stenosis. L3-L4: There is minimal posterior disc bulge and annular fissure. Facet arthropathy is of no consequence. The neural foramina are widely patent. L4-L5: There is a small posterior disc bulge with annular fissure. In conjunction with anterolisthesis, there is mild central canal stenosis at this level with a minimum AP diameter of 9.5 mm. There is bilateral subarticular stenosis with probable impingement on the exiting bilateral L4 nerve roots. The neural foramina are patent. Facet arthropathy is of no consequence. L5-S1: There is a small posterior disc bulge. The central canal appears clear. Facet arthropathy is of no consequence. The neural foramina are patent. Sacrum: The visualized sacrum is normal in morphology and signal intensity. Soft tissues: There is complete fatty atrophy of the paraspinous musculature. The partially imaged retroperitoneal structures are grossly unremarkable but incompletely evaluated. IMPRESSION: 1. There is no disc herniation or severe central canal stenosis. 2. Multilevel lumbosacral spondylosis as detailed above. See discussion for detailed level by level analysis. 3. Degenerative disc disease with advanced multilevel degenerative endplate and endplate edema change as above. 4. No destructive bony lesion is identified. Marrow signal intensity is heterogeneous. Dictated: 09/15/2016 9:34 PM Transcribed: 09/15/2016 9:56 PM LOUIS_Kyler Electronically signed by: Alejandro Tom M.D. 09/15/2016 10:03 PM Dictated Date/Time: 09/15/2016 9:34 PM The status of this report is Signed. Draft = Not yet reviewed or approved by Radiologist. Signed = Reviewed and approved by Radiologist. <AttendingPhy>Chelly Mckinnon M.D.</AttendingPhy> <FamilyPhy>Marivel Yoon M.D.</FamilyPhy> <PrimaryPhy>Marivel Yoon M.D.</PrimaryPhy> <UnitNumber> [id number]</UnitNumber> <VisitNumber>[id number]</VisitNumber> <PatientName> ELOY YOST</PatientName> <DateOfBirth>1935</DateOfBirth> < Location>[facility]</Location> <ServiceDate>09/14/16</ServiceDate> <MNE>ESINDI</MNE> <OrderingPhy>Chelly Mckinnon M.D.</OrderingPhy> <OrderingPhyMNE>f rep ord dr hastings</OrderingPhyMNE> <DictatingPhyMNE>f rep dict dr hastings</DictatingPhyMNE> < CCListMNE>f rep ct christoe</CCListMNE> <AdmittingPhyMNE>f pt admit dr hastings</ AdmittingPhyMNE> <AttendingPhyMNE>f pt attend dr hastings</AttendingPhyMNE> <ConsultingPhyMNE>f pt consult dr hastings</ConsultingPhyMNE> <FamilyPhyMNE>f pt fam dr hastings</FamilyPhyMNE> <OtherPhyMNE>f pt other dr hastings</OtherPhyMNE> < PrimaryPhyMNE>f pt prim care dr hastings</PrimaryPhyMNE> <ReferringPhyMNE>f pt referring dr hastings</ReferringPhyMNE> Assessment & Plan I have reviewed the patient's MRI as well as clinical findings with her. At this point in time she is not interested in pursuing any further treatment. I have discussed options including pain management consultation with possible injections specifically at L4 5 level. I have also discussed surgical intervention if her pain was quite limiting and severe. She has decided to discuss options with her children. She would ultimately like to pursue pain management possibly on an outpatient basis. No acute surgical indications at this point in time. Please do not hesitate to contact us if you've any further questions.
--- NOTE | 2016-09-17 18:10 | Progress Note ---
Internal Med Progress Note Date of Service: Sep 17, 2016. Provider Documentation: SUBJECTIVE: still has significant pain in right knee and not able to ambulate afebrile eating ok otherwise no other complaints OBJECTIVE: Vital Signs-as noted below Exam: General-alert and oriented. Not in distress ENT-Normal hearing Neck-no neck masses supple Lungs-cta b/l no wheezing no crackles present Heart-s1 and s2 heard regular rate and rhythm no murmurs Abdomen-soft bowel sounds present non tender no distension Extremities- mild swelling of right knee joint. No erythema no warmth or tender Neuro-alert and oriented moves extremities Lab data as noted below. ASSESSMENT & PLAN: RIGHT KNEE PAIN with EFFUSION Arthrocentesis performed by ED physician.Cx no growth ,No Crystals identified Discussed with rheumatology Dr Casillas-advised 40 of Solumedrol IV x1 To Continue current dose of Prednisone Can see her early in [facility] for Aspiration and joint injection if she is discharged consulted Ortho and await input. CHOLELITHIASIS without any Cholecystitis Experiencing abdominal pain and nausea. Known prior history of cholelithiasis. CT demonstrates cholelithiasis without apparent cholecystitis or choledocholithiasis. seen by surgery appreciate inputs currently stable MALAISE, CHILLS with generalized weakness Immunocompromise secondary to long-term therapy with prednisone and recent initiation of azathioprine. Chest x-ray interpreted as possible left lower lobe pneumonia, but fever chronic interstitial lung disease and possible atelectasis. on empiric abx vanco and Zosyn all cx no growth so far. stable currently . Back Pain with Right Radiculopathy No bowel and bladder problem MRI- multilevel lumbosacral spondylosis Consulted Ortho CHEST PAIN-resolved HYPERTENSION On metoprolol and lisinopril. Will monitor DM TYPE 2 Diet controlled. Hgb A1C in clinic on 08/27/16 was 7.1. Follow. 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 Hold azathioprine until active infection ruled out. No acute symptoms except right knee pain and effusion DVT PROPHYLAXIS SCD's. SQ enoxaparin. Ambulate. RESUSCITATION STATUS Level 1 DISPOSITION pt/ot Expected discharge to home in 1-2 days Vital Signs: Date Time Temp Pulse Resp B/P (MAP) Pulse Ox O2 Delivery O2 Flow Rate FiO2 09/17/16 14:54 36.8 72 18 132/76 (94) 97 Room Air 09/17/16 12:40 178/77 (110) 09/17/16 11:33 36.7 91 17 183/101 (128) 96 181/100 (127) 09/17/16 08:20 36.5 76 18 158/88 (111) 94 161/90 (113) 09/17/16 07:45 Room Air 09/17/16 04:21 37.0 76 20 172/85 (114) 98 Nasal Cannula 2.0 09/17/16 04:00 Nasal Cannula 2.0 09/17/16 01:30 93 183/96 (125) 09/17/16 00:00 Nasal Cannula 2.0 09/16/16 23:51 37.2 85 20 172/84 (113) 95 Room Air 09/16/16 20:27 96 Room Air 09/16/16 18:53 36.9 82 16 151/82 (105) 96 Lab Results: Results Past 24 Hours Test 09/16/16 20:49 09/17/16 07:44 09/17/16 11:26 09/17/16 16:24 Range/Units Bedside Glucose 155 84 198 163 70-90 mg/dl Microbiology Results 09/17/16 C.difficile Toxin B Gene (PCR), Received Pending
--- NOTE | 2016-09-17 21:19 | DIAGNOSTIC IMAGING REPORT ---
RIGHT LOWER EXT JOINT WITHOUT CLINICAL HISTORY: r/o av Right pain TECHNIQUE: MRI multi axial acquisition COMPARISON STUDY: None FINDINGS: Generalized nonspecific soft tissue edema. Significant joint effusion. Several suprapatellar synechiae. Anterior and posterior cruciate ligaments are intact. Medial and lateral collateral ligaments are generally intact. Degenerative thinning of the articular services of all major joint compartments. Slight bone contusion posterior aspect lateral tibial plateau. Focal subchondral focus mid medial femoral condyle with focal loss of articular services. Considerable thinning of the anterior articular services of both medial and lateral femoral condyles. Mild degenerative change of the articular services of the menisci with no well-defined acute meniscal tear. IMPRESSION: 1. Generalized nonspecific soft tissue edematous change about the knee. 2. Significant joint effusion with no evidence for fat fluid level. 3. Several synechiae of the suprapatellar bursal region. 4. Degenerative thinning of all major articular services with evidence for a 7 mm osteochondral defect of the central mid medial femoral condyle. 5. Focal loss of articular surface over the osteochondral defect although no significant bony loss is appreciated. 6. Degenerative changes of the articular services throughout with considerable loss of articular services of the lateral patellar articulating region. The above report was generated using voice recognition software. It may contain grammatical, syntax or spelling errors. Electronically signed by: Franklin Randle M.D. 09/17/2016 9:18 PM Dictated Date/Time: 09/17/2016 9:12 PM
--- NOTE | 2016-09-17 23:42 | ORTHOPEDIC CONSULTATION ---
DATE OF CONSULTATION: 09/17/2016 HISTORY OF PRESENT ILLNESS: The patient is a 81-year-old female who presented with right knee pain. In part it was felt that she had sciatica from lumbar issues. Orthopedic consult was performed by [facility] [place]. The patient did state she had swollen, painful knee. She had it aspirated in the Emergency Room. It has been less tense but some recurrence of the fluid since her knee was aspirated. She said that tests were sent off for study. She said that she was informed that she had a septic knee joint. She does have a history of chronic steroid use. PAST MEDICAL HISTORY: She has hypertension, Sjogren's syndrome, interstitial lung disease, autoimmune hepatitis, GERD, chronic kidney disease stage III, osteoporosis, diabetes mellitus type 2. PAST SURGICAL HISTORY: She has had previous appendectomy and tubal ligation. MEDICATIONS: She is on chronic prednisone 50 mg daily for a long time and she also uses steroid inhalers. PHYSICAL EXAMINATION: Her knee exam demonstrates an effusion but not consistent with septic arthritis, more inflammatory arthritis. She does not have any marked tenderness on the medial side of her knee or medial femoral condyle, just sort of a diffuse tenderness in her knee and no major pain with range of motion. Still has reasonably good range of motion and no particular instability, some crepitation noted. Her plain x-rays demonstrate some patellofemoral arthritis and she had some lateral osteophytes in the lateral joint line. She did have some subtle subchondral changes in the medial femoral condyle that would be of some concern for possible small area of AVN or an insufficiency fracture which could be associated with chronic steroid use. She does have a small loose body in posterior knee which is unlikely symptomatic. LABORATORY RESULTS: Her white count has been normal since her admission. Her joint fluid analysis demonstrated that she had no growth on cultures. Her white cell count in the knee fluid was 1770 which is more inflammatory arthritic in nature and would not be consistent with infection and was negative crystals. Fluid was cloudy which is more consistent with inflammatory arthritis. ASSESSMENT: Right knee inflammatory arthritis, could be associated with Sjogren's syndrome. She could just have inflammatory arthritis of her knee. She could have some other pathology in her knee causing knee effusion. It would be prudent to rule out insufficiency fracture or an area of AVN in the medial femoral condyle. I would recommend an MRI for now, ice to her knee, not re-aspirating her knee until all cultures are back, but consider future aspiration and injection of corticosteroid if infection is not felt to be present after all final cultures are back. Thank you for this consultation.
[2016-09-18] MEDS: PIPERACILL/TAZOBAC IV 3.375 GM in DEXTROSE 5% 100ML 100 ML IV SCH ×2 (02:22→10:58)
[2016-09-18] MEDS: ACETAMINOPHEN 325 MG TAB PO PRN (02:51)
[2016-09-18] MEDS: LEVOTHYROXINE 50 MCG TAB PO SCH (05:56)
[2016-09-18 07:19] VITALS: BP 145/65; PULSE 75; TEMP 36.6; O2SAT 98
[2016-09-18] MEDS: INSULIN ASPART 100 UNITS/ML 3 ML PEN SC SCH ×2 (08:22→12:12)
[2016-09-18] MEDS: VANCOMYCIN INJ 1,250 MG in SODIUM CHLORIDE 0.9% 250ML 250 ML IV SCH (08:24)
[2016-09-18] MEDS: METOPROLOL SUCC 25MG EXT REL TAB PO SCH (08:25)
[2016-09-18] MEDS: FAMOTIDINE 20 MG TAB PO SCH (08:25)
[2016-09-18] MEDS: LACTOBACILLUS ACIDOPHILUS (FLORANEX) TAB PO SCH ×2 (08:25→12:11)
[2016-09-18] MEDS: ENOXAPARIN 40 MG/0.4 ML SYR SQ SCH (08:26)
--- NOTE | 2016-09-18 08:33 | Progress Note ---
Orthopedic SOAP Note Subjective Date of Service: Sep 18, 2016. Additional Notes: able to bear weight without pain just stiffness Problem List Medical Problems: (1) Pneumonia Status: Acute Objective N/V intact, CMS intact knee effusion no erythema no major pain with rom Date Time Temp Pulse Resp B/P (MAP) Pulse Ox O2 Delivery O2 Flow Rate FiO2 09/18/16 07:19 36.6 75 17 145/65 (91) 98 Room Air 09/18/16 00:00 Nasal Cannula 2.0 09/17/16 22:38 36.8 83 20 144/79 (100) 95 Room Air 09/17/16 16:10 97 Room Air 09/17/16 14:54 36.8 72 18 132/76 (94) 97 Room Air 09/17/16 12:40 178/77 (110) 09/17/16 11:33 36.7 91 17 183/101 (128) 96 181/100 (127) Assessment right knee effusion ,not septic knee, combination of inflammatory arthritis and osteoarthritis, no fracture or AVN. osteochondral lesion of medial femoral condyle Plan discussed treatment options with patient.for now ice and teena wrap and relative rest. if effusion persists after several weeks consider aspiration and steroid injection.discussed possible arthroscopic surgery options in future. she can followup as outpatient with me if condition persists.
[2016-09-18] MEDS ORDERED: LISINOPRIL 5 MG TAB PO SCH (09:00)
--- NOTE | 2016-09-18 14:13 | Discharge Instructions ---
Discharge Instructions Date of Service Sep 18, 2016. Admission Reason for Admission: Chest Pain, Nausea & Vomiting Discharge Discharge Diagnosis / Problem: chest pain, Rt knee pain, back pain Discharge Goals Goal(s): Decrease discomfort, Improve function Activity Recommendations Activity Limitations: resume your previous activity . Instructions / Follow-Up Instructions / Follow-Up FOLLOWUP WITH FAMILY DOCTOR ON September AT 11AM. FOLLOWUP WITH RHEUMATOLOGY BASIL IN 1-2 WEEKS FOLLOWUP WITH ORTHOPEDICS NEEDED FOR KNEE PAIN. BLOOD PRESSURE FOLLOWUP WITH FAMILY DOCTOR. Current Hospital Diet Patient's current hospital diet: Diabetes Type 2 Diet Discharge Diet Recommended Diet: Diabetes Type 2 Diet Pending Studies Studies pending at discharge: no Medical Emergencies . Who to Call and When: Medical Emergencies: If at any time you feel your situation is an emergency, please call 911 immediately. . Non-Emergent Contact Non-Emergency issues call your: Primary Care Provider . . "Provider Documentation" section prepared by Gregory Mendoza. . VTE Core Measure Inpt VTE Proph given/why not?: Unfractionated heparin SQ, SCD's
[2016-09-18 15:08] VITALS: BP 145/65; PULSE 75; TEMP 36.6; O2SAT 98
--- NOTE | 2016-09-18 16:52 | Progress Note ---
Internal Med Progress Note Date of Service: Sep 18, 2016. Provider Documentation: SUBJECTIVE: says her pain in right knee is bettwr abnd able to walk on it today afebrile no other complaints ok to go home OBJECTIVE: Vital Signs-as noted below Exam: General-alert and oriented. Not in distress ENT-Normal hearing Neck-no neck masses supple Lungs-cta b/l no wheezing no crackles present Heart-s1 and s2 heard regular rate and rhythm no murmurs Abdomen-soft bowel sounds present non tender no distension Extremities- mild swelling of right knee joint. No erythema no warmth or tender Neuro-alert and oriented moves extremities Lab data as noted below. ASSESSMENT & PLAN: RIGHT KNEE PAIN with EFFUSION Arthrocentesis performed by ED physician.Cx no growth ,No Crystals identified Discussed with rheumatology Dr Casillas-advised 40 of Solumedrol IV x1 To Continue current dose of Prednisone Can see her early in [place] clinic for Aspiration and joint injection if she is discharged consulted Ortho MRI was done which showed combination of inflammatory arthritis and osteoarthritis and Ortho recommended ice wraps and rest and follow as out patient if not improved. CHOLELITHIASIS without any Cholecystitis Experiencing abdominal pain and nausea. Known prior history of cholelithiasis. CT demonstrates cholelithiasis without apparent cholecystitis or choledocholithiasis. seen by surgery appreciate inputs currently stable MALAISE, CHILLS with generalized weakness Immunocompromise secondary to long-term therapy with prednisone and recent initiation of azathioprine. Chest x-ray interpreted as possible left lower lobe pneumonia, but fever chronic interstitial lung disease and possible atelectasis. on empiric abx vanco and Zosyn all cx no growth so far. stable currently stopped abx . Back Pain with Right Radiculopathy No bowel and bladder problem MRI- multilevel lumbosacral spondylosis f/u as out patient CHEST PAIN-resolved HYPERTENSION On metoprolol and lisinopril. f/u with pcp. DM TYPE 2 Diet controlled. Hgb A1C in clinic on 08/27/16 was 7.1. Follow with PCP SJGREN'S / AUTOIMMUNE HEPATITIS / INTERSTITIAL LUNG DISEASE On prednisone. Hold azathioprine until active infection ruled out. No acute symptoms except right knee pain and effusion restarted home meds at discharge Discharged home Vital Signs: Date Time Temp Pulse Resp B/P (MAP) Pulse Ox O2 Delivery O2 Flow Rate FiO2 09/18/16 15:08 36.6 75 17 98 Room Air 09/18/16 11:13 Room Air 09/18/16 07:19 36.6 75 17 145/65 (91) 98 Room Air 09/18/16 00:00 Nasal Cannula 2.0 09/17/16 22:38 36.8 83 20 144/79 (100) 95 Room Air Lab Results: Results Past 24 Hours Test 09/17/16 19:56 09/18/16 08:00 09/18/16 11:27 09/18/16 16:24 Range/Units Bedside Glucose 156 97 115 201 70-90 mg/dl Microbiology Results 09/17/16 C.difficile Toxin B Gene (PCR) - Final, Complete No C. difficile toxin B gene detected
--- NOTE | 2016-09-18 17:12 | Discharge Summary ---
Discharge Summary Date of Service Sep 18, 2016. Discharge Summary Admission Date: Sep 17, 2016 at 11:42 Discharge Date: Sep 18, 2016 Discharge Disposition: Home Principal Diagnosis: CHEST PAIN KNEE PAIN BACK PAIN GALL STONES-EPIGASTRIC ABDOMINAL PAIN Secondary Diagnoses/Problems: (1) Autoimmune hepatitis Status: Chronic (3) Central retinal vein occlusion of left eye Status: Chronic (4) Cholelithiasis Status: Chronic (5) CKD (chronic kidney disease), stage III Status: Chronic (6) Diverticulosis of colon Status: Chronic (7) Dyslipidemia Status: Chronic (8) GERD (gastroesophageal reflux disease) Status: Chronic (9) Hypertension Status: Chronic (11) Interstitial lung disease Status: Chronic (12) Osteoporosis Status: Chronic (13) Seasonal allergies Status: Chronic (14) Sjogrens syndrome Status: Chronic (15) Type II Diabetes Status: Chronic Procedures: CTA CHEST: 1. Study is negative for pulmonary embolus. 2. Mildly progressive interstitial change suggesting a low-grade pneumonitis throughout both hemithoraces. 3. Several mediastinal and/or hilar nodes possibly reactive CT ABD/PELVIS: 1. Nonspecific bibasilar interstitial infiltrative change. 2. Gallstone filled gallbladder with the possibility of calcifications adjacent to and/or within the cystic as well as common bile duct. 3. Considerable sigmoid diverticulosis with no evidence for acute diverticulitis. 4. Nonobstructive bowel pattern. 5. Considerable degenerative disc change of the thoracolumbar spine The above report was generated using voice recognition software. It may contain grammatical, syntax or spelling errors. LUMBAR SPINE MRI: 1. There is no disc herniation or severe central canal stenosis. 2. Multilevel lumbosacral spondylosis as detailed above. See discussion for detailed level by level analysis. 3. Degenerative disc disease with advanced multilevel degenerative endplate change as above. 4. No destructive bony lesion is clearly identified. Marrow signal intensity is markedly heterogeneous. RIGHT KNEE MRI: 1. Generalized nonspecific soft tissue edematous change about the knee. 2. Significant joint effusion with no evidence for fat fluid level. 3. Several synechiae of the suprapatellar bursal region. 4. Degenerative thinning of all major articular services with evidence for a 7 mm osteochondral defect of the central mid medial femoral condyle. 5. Focal loss of articular surface over the osteochondral defect although no significant bony loss is appreciated. 6. Degenerative changes of the articular services throughout with considerable loss of articular services of the lateral patellar articulating region. Consultations: RHEUMATOLOGY ORTHOPEDICS SURGERY Medication Reconciliation Continued Medications: Acetaminophen Tab (Tylenol) 325 Mg Tab 325 MG PO DIRECTED PRN for Pain or Fever, TAB Albuterol Hfa (Ventolin Hfa) 200 Puffs/89771 Mcg Aers 2 PUFFS INH Q6H PRN for SOB/Wheezing Albuterol Sulf (Proventil 0.083% 2.5MG/3ML) 2.5 Mg/3 Ml Nebu 2.5 MG INH Q4H PRN for SOB/Wheezing, EA Azathioprine (Imuran) 50 Mg Tab 100 MG PO DAILY, TAB Famotidine (Pepcid) 20 Mg Tab 10 MG PO DAILY PRN, 0 Refills Nqfcmhhy-Ltciabeathow-Pfbajjjx (Artificial Tears) 1 Roshan Roshan DIRECTED Ipratropium [place] (Atrovent 0.02% Soln) 2.5 Ml Nebu 1 VIAL INH Q4H PRN for SOB/Wheezing Ipratropium [place] (Nasal) (Ipratropium [place]) 0.03 % Spr 2 SPRAYS SHEILA BID Lactic Acid (Ammonium Lactate Cream 12%) 280 Gm Cr 1 APPLN TOP BID PRN for DRYNESS Levothyroxine Sodium (Synthroid) 50 Mcg Tab 50 MCG PO DAILY, TAB Lisinopril (Zestril) 5 Mg Tab 5 MG PO DAILY, TAB Metoprolol Succ (Toprol Xl) (Toprol-Xl) 25 Mg Tabcr 25 MG PO DAILY Prednisone (Prednisone) 5 Mg Tab 15 MG PO DAILY, TAB Triamcinolone Acet (Aristocort 0.1%) 90 Appln/30 Gm Cr 1 APPLN EXT BID PRN for RASH Admission Information HPI (per Admitting provider): 81 YO female followed by Dr. Yoon for Internal Medicine, Dr. Chavarria for Pulmonary Medicine, and Dr. Casillas for Rheumatology. History of hypertension, Sjogren's syndrome, interstitial lung disease, autoimmune hepatitis, and other problems noted below. Her Sjogren's syndrome has been manage with steroids for some time. Started on azathioprine a few weeks ago. Seen in Rheumatology Clinic 2 days prior to admission and was doing well. Yesterday she started experiencing chills, epigastric abdominal discomfort, nausea. Abdominal pain described as epigastric pressure that does not radiate. No documented fever. No emesis. No diarrhea, melena, hematochezia. No dysuria or hematuria. Last night she noticed some pain and swelling of her right knee. No associated trauma. [place] worse today, so she came to the Emergency Department for evaluation. . Physical Exam (per Admitting): General Appearance: WD/WN, no apparent distress Head: normocephalic, atraumatic Eyes: normal inspection, PERRL, EOMI, sclerae normal ENT: hearing grossly normal, pharynx normal, + pertinent finding (upper and lower dentures) Neck: supple, no adenopathy, thyroid normal, trachea midline Respiratory/Chest: no respiratory distress, no accessory muscle use, + rales (scattered) Cardiovascular: regular rate, rhythm, no edema, no JVD, no murmur, normal peripheral pulses, + gallop/S4 Abdomen/GI: normal bowel sounds, soft, no organomegaly, no pulsatile mass, + pertinent finding (moderate epigastric tenderness without rebound or guarding) Extremities/Musculoskelatal: no calf tenderness, no pedal edema, + pertinent finding (moderate effusion right knee without erythema or warmth) Neurologic/Psych: icu specialist II-XII nml as tested (PERRL, EOMI, no facial palsy, no dyarthria), no motor/sensory deficits (motor strength grossly intact), alert , normal mood/affect, oriented x 3 Skin: normal color, warm/dry, no rash Lymphatic: no adenopathy (cervical) Hospital Course RIGHT KNEE PAIN with EFFUSION Arthrocentesis performed by ED physician.Cx no growth ,No Crystals identified Discussed with rheumatology Dr Casillas-advised 40 of Solumedrol IV x1 To Continue current dose of Prednisone Can see her early in [place] clinic for Aspiration and joint injection if she is discharged consulted Ortho MRI was done which showed combination of inflammatory arthritis and osteoarthritis and Ortho recommended ice wraps and rest and follow as out patient if not improved. CHOLELITHIASIS without any Cholecystitis Experiencing abdominal pain and nausea. Known prior history of cholelithiasis. CT demonstrates cholelithiasis without apparent cholecystitis or choledocholithiasis. seen by surgery appreciate inputs currently stable MALAISE, CHILLS with generalized weakness Immunocompromise secondary to long-term therapy with prednisone and recent initiation of azathioprine. Chest x-ray interpreted as possible left lower lobe pneumonia, but fever chronic interstitial lung disease and possible atelectasis. on empiric abx vanco and Zosyn all cx no growth so far. stable currently stopped abx . Back Pain with Right Radiculopathy No bowel and bladder problem MRI- multilevel lumbosacral spondylosis f/u as out patient CHEST PAIN-resolved HYPERTENSION On metoprolol and lisinopril. f/u with pcp. DM TYPE 2 Diet controlled. Hgb A1C in clinic on 08/27/16 was 7.1. Follow with PCP SJGREN'S / AUTOIMMUNE HEPATITIS / INTERSTITIAL LUNG DISEASE On prednisone. Hold azathioprine until active infection ruled out. No acute symptoms except right knee pain and effusion restarted home meds at discharge Discharged home Total time spent on discharge = 35MINUTES This includes examination of the patient, discharge planning, medication reconciliation, and communication with other providers. Discharge Instructions Discharge Instructions Date of Service Sep 18, 2016. Admission Reason for Admission: Chest Pain, Nausea & Vomiting Discharge Discharge Diagnosis / Problem: chest pain, Rt knee pain, back pain Discharge Goals Goal(s): Decrease discomfort, Improve function Activity Recommendations Activity Limitations: resume your previous activity . Instructions / Follow-Up Instructions / Follow-Up FOLLOWUP WITH FAMILY DOCTOR ON September AT 11AM. FOLLOWUP WITH RHEUMATOLOGY BASIL IN 1-2 WEEKS FOLLOWUP WITH ORTHOPEDICS NEEDED FOR KNEE PAIN. BLOOD PRESSURE FOLLOWUP WITH FAMILY DOCTOR. Current Hospital Diet Patient's current hospital diet: Diabetes Type 2 Diet Discharge Diet Recommended Diet: Diabetes Type 2 Diet Pending Studies Studies pending at discharge: no Medical Emergencies . Who to Call and When: Medical Emergencies: If at any time you feel your situation is an emergency, please call 911 immediately. . Non-Emergent Contact Non-Emergency issues call your: Primary Care Provider . . "Provider Documentation" section prepared by Gregory Mendoza. . VTE Core Measure Inpt VTE Proph given/why not?: Unfractionated heparin SQ, SCD's
[2016-09-18] MEDS ORDERED: VANCOMYCIN TROUGH SCH (21:30)
[2016-09-27] MEDS ORDERED: AMOX1TAB43 PO (18:09)
[2016-09-28] MEDS ORDERED: LISI-461 PO (11:59)
== END 2016-09-18 16:45 | disposition home or self-care (01) | DRG 565 ==
LOC: EDBD 14:23 → C.EDB 14:24 → C.MED 19:40 → ENRESERV 19:52 → CANRESERV 19:52 → CANBEDREQ 19:58 → ENRESERV 20:02 → OBSVTOIN 09-17 11:42 → C.MS2W 09-17 14:09
PROVIDERS: ADMIT Hospitalist; ATTEND Internal Medicine
PROC: 0S9C30Z Drainage of Right Knee Joint with Drainage Device, Percutaneous Approach (ICD-10-PCS; principal; 2016-09-17)
DX: M25.461 Effusion, right knee (principal); J84.9 Interstitial pulmonary disease, unspecified; K80.20 Calculus of gallbladder without cholecystitis without obstruction; M47.27 Other spondylosis with radiculopathy, lumbosacral region; M35.02 Sjogren syndrome with lung involvement; K75.4 Autoimmune hepatitis; M81.0 Age-related osteoporosis without current pathological fracture; K57.30 Diverticulosis of large intestine without perforation or abscess without bleeding; E78.5 Hyperlipidemia, unspecified; N18.3 Chronic kidney disease, stage 3 (moderate); I12.9 Hypertensive chronic kidney disease with stage 1 through stage 4 chronic kidney disease, or unspecified chronic kidney disease; K21.9 Gastro-esophageal reflux disease without esophagitis; E11.22 Type 2 diabetes mellitus with diabetic chronic kidney disease; Z79.52 Long term (current) use of systemic steroids; J30.2 Other seasonal allergic rhinitis; Z90.49 Acquired absence of other specified parts of digestive tract; Z98.51 Tubal ligation status; Z87.01 Personal history of pneumonia (recurrent); Z82.0 Family history of epilepsy and other diseases of the nervous system; Z82.49 Family history of ischemic heart disease and other diseases of the circulatory system; Z83.6 Family history of other diseases of the respiratory system; Z88.2 Allergy status to sulfonamides; Z91.040 Latex allergy status; Z88.8 Allergy status to other drugs, medicaments and biological substances; Z88.6 Allergy status to analgesic agent; Z85.51 Personal history of malignant neoplasm of bladder

== ENCOUNTER 2016-09-26 19:58 | Inpatient (IN) | payer OTHER ==
[~2016-09-26] VITALS: Ht 177.8 cm; Wt 69.0 kg
[~2016-09-26 19:58] MED LIST changes: +ACET325T96 PO; +ALBINS/ INH; +ATRINSX INH; +AZAT50TA17 PO; -CLTP PO; +GLYCDRO6; +IPRA0.03 NAE; -LACT12LO3 TOP; +LCHC12280 TOP; +LEVO50TA PO; -LEVO50TA60 PO; +LISI-729 PO; -LORA-741 PO; -MENTOIN TOP; +METO25TA3 PO; -MULT-506 PO; -ONDA4TAB4 PO; +PRED-301 PO; -TRIA0.1C20 TOP; +TRMCR130WC EXT; +VNTHFA/IN INH
[2016-09-26] MEDS ORDERED: SODIUM CHLORIDE 0.9% 1000ML 1,000 ML IV STA (20:43)
[2016-09-26] MEDS ORDERED: ONDANSETRON INJ 2 MG/ML 2 ML VIAL IV STA ×2 (20:43→22:01)
--- NOTE | 2016-09-26 20:47 | EMERGENCY ROOM VISIT NOTE ---
History Report prepared by Donnell: Tasha Simmons Under the Supervision of: Dr. Juan Cortes M.D. First contact with patient: 20:29 Chief Complaint: FLU LIKE SX Stated Complaint: FLU SYMPTOMS History of Present Illness The patient is a 81 year old white female with a past medical history of autoimmune hepatitis, Sjgren's syndrome, hypertension, CKD, GERD, interstitial lung disease, diverticulosis, and DM type II who presents to the ED with a cc of persistent flu-like symptoms beginning this afternoon. Positive headache, cough, chills, nausea, neck pain, left sided back pain, recent antibiotic use in the hospital. Negative fevers. The patient did not got a flu shot this year. She reports she was discharged from the hospital approximately 8 days ago after a brief stay for previous flu-like symptoms. She notes she recently started taking Imuran, prescribed by her Wound/Ostomy Clinical Nurse Specialist, Dr. Casillas with [facility], and she thinks she may be having a reaction to the medication. She is still taking Prednisone for knee pain. -ETOH or drug use. Source of History: patient Onset: this afternoon Position: other (global) Timing: other (persistent) Associated Symptoms: + chills, + headache, + cough, + neck pain, + nausea, + back pain (left sided back pain) Review of Systems See HPI for pertinent positives and negatives. A total of ten systems were reviewed and were otherwise negative. Past Medical & Surgical Medical Problems: (1) Autoimmune hepatitis (2) Back pain (3) Benign hypertension (4) Central retinal vein occlusion of left eye (5) Cholelithiasis (6) CKD (chronic kidney disease), stage III (7) Diverticulosis of colon (8) Dyslipidemia (9) Febrile illness (10) GERD (gastroesophageal reflux disease) (11) Hypertension (12) HYPERTENSION NOS (13) Interstitial lung disease (14) Knee pain, acute (15) Osteoporosis (16) Seasonal allergies (17) Sinusitis, acute (18) Sjogrens syndrome (19) Type II Diabetes Surgical Problems: (1) Status post appendectomy (2) Status post tubal ligation Family History Bladder cancer BROTHER COPD (chronic obstructive pulmonary disease) BROTHER SISTER Dementia FATHER Heart disease MOTHER Social History Smoking Status: Never Smoker Smokeless Tobacco Use: No Alcohol Use: none Drug Use: none Marital Status: Housing Status: lives with family Occupation Status: retired Current/Historical Medications Scheduled Azathioprine (Imuran), 100 MG PO DAILY Calcium Carbonate-Vitamin D (Calcium Carbonate/Vitamin), 1 TAB PO DAILY Famotidine (Pepcid), 10 MG PO DAILY PRN Lsolrjkz-Jcykjkurtywc-Evzlfgej (Artificial Tears), DIRECTED Ipratropium Nordland (Nasal) (Ipratropium Nord[place]), 2 SPRAYS SHEILA BID Levothyroxine Sodium (Synthroid), 50 MCG PO DAILY Lisinopril (Zestril), 5 MG PO DAILY Metoprolol Succ (Toprol Xl) (Toprol-Xl), 25 MG PO DAILY Prednisone (Prednisone), 15 MG PO DAILY Scheduled PRN Acetaminophen Tab (Tylenol), 325 MG PO DIRECTED PRN for Pain or Fever Albuterol Hfa (Ventolin Hfa), 2 PUFFS INH Q6H PRN for SOB/Wheezing Albuterol Sulf (Proventil 0.083% 2.5MG/3ML), 2.5 MG INH Q4H PRN for SOB/Wheezing Ipratropium [place] (Atrovent 0.02% Soln), 1 VIAL INH Q4H PRN for SOB/Wheezing Lactic Acid (Ammonium Lactate Cream 12%), 1 APPLN TOP BID PRN for DRYNESS Triamcinolone Acet (Aristocort 0.1%), 1 APPLN EXT BID PRN for RASH Allergies Coded Allergies: Sulfamethoxazole w/Trimethoprim (Unverified Allergy, Severe, edema face/ lips/tongue, 09/26/16) Latex1 -Allergic Contact Dermititis (Unverified Allergy, Mild, LOCAL SKIN REACTION, 09/26/16) Niacin (Unverified Allergy, Mild, RASH, 09/26/16) Naproxen (Unverified Adverse Reaction, Intermediate, BURNING STOMACH, 09/26) Physical Exam Vital Signs Date Time Temp Pulse Resp B/P (MAP) Pulse Ox O2 Delivery O2 Flow Rate FiO2 09/26/16 23:01 162/89 09/26/16 23:00 129 21 99 Nasal Cannula 2.0 09/26/16 22:31 168/99 09/26/16 22:30 132 25 100 Nasal Cannula 2.0 09/26/16 22:10 95 Nasal Cannula 2.0 09/26/16 22:09 94 Nasal Cannula 2.0 09/26/16 22:09 85 Room Air 09/26/16 22:01 202/96 09/26/16 22:00 135 17 88 09/26/16 21:59 204/106 09/26/16 21:58 212/106 09/26/16 21:58 39.4 137 20 212/106 93 Room Air 09/26/16 21:30 125 19 97 09/26/16 21:25 127 18 97 09/26/16 21:10 196/135 09/26/16 20:55 123 20 98 09/26/16 20:50 200/109 09/26/16 20:28 117 15 96 09/26/16 20:20 117 09/26/16 19:58 38.6 125 22 191/122 96 Room Air Physical Exam GENERAL: Awake, alert, well-appearing, NAD HENT: Normocephalic, atraumatic. EYES: Normal conjunctiva. Sclera non-icteric. NECK: Left sided paraspinal tenderness to palpation without erythema, fluctuance or bruising. Supple. No nuchal rigidity. FROM. No meningismus. RESPIRATORY: Bibasilar crackles from midlung to base bilaterally. No rhonchi, no wheezing. CARDIAC: Tachycardic heart rate, regular rhythm. No MRG ABDOMEN: Soft, NTND, BS+ MSK: No chest wall TTP, no LE edema NEURO: GCS 15, CN 2-12 intact, moves all 4s on command. No focal or neurologic deficits. Negative Brudzinski. Negative Kernig's. SKIN: Warm to touch. No rash or jaundice noted. Medical Decision & Procedures ER Provider Diagnostic Interpretation: Radiology results as stated below per my review and radiologist interpretation: CHEST ONE VIEW PORTABLE CLINICAL HISTORY: ILD, on steroids, fever, cough COMPARISON STUDY: Chest CT and chest radiograph September 14, 2016. FINDINGS: Lung volumes are diminished. This is unchanged. Interstitial thickening is chronic. No consolidation is identified. There is no evidence for pulmonary edema. IMPRESSION: 1. No acute cardiopulmonary findings. 2. Chronic interstitial thickening suggestive of interstitial lung disease. Electronically signed by: Jamie العراقي M.D. 09/26/2016 9:14 PM Laboratory Results 09/26/16 19:34 Red Blood Count 4.51, Mean Corpuscular Volume 97.3, Mean Corpuscular Hemoglobin 33.5, Mean Corpuscular Hemoglobin Concent 34.4, Mean Platelet Volume 10.1, Neutrophils (%) (Auto) 93.3, Lymphocytes (%) (Auto) 4.7, Monocytes (%) (Auto) 1.3, Eosinophils (%) (Auto) 0.4, Basophils (%) (Auto) 0.1, Neutrophils # (Auto) 8.54, Lymphocytes # (Auto) 0.43, Monocytes # (Auto) 0.12, Eosinophils # (Auto) 0.04, Basophils # (Auto) 0.01 09/26/16 19:34 Test 09/26/16 19:34 09/26/16 21:08 09/26/16 21:10 09/26/16 21:21 White Blood Count 9.16 K/uL (4.8-10.8) Red Blood Count 4.51 M/uL (4.2-5.4) Hemoglobin 15.1 g/dL (12.0-16.0) Hematocrit 43.9 % (37-47) Mean Corpuscular Volume 97.3 fL (80-100) Mean Corpuscular Hemoglobin 33.5 pg (25-34) Mean Corpuscular Hemoglobin Concent 34.4 g/dl (32-36) Platelet Count 229 K/uL (130-400) Mean Platelet Volume 10.1 fL (7.4-10.4) Neutrophils (%) (Auto) 93.3 % Lymphocytes (%) (Auto) 4.7 % Monocytes (%) (Auto) 1.3 % Eosinophils (%) (Auto) 0.4 % Basophils (%) (Auto) 0.1 % Neutrophils # (Auto) 8.54 K/uL (1.4-6.5) Lymphocytes # (Auto) 0.43 K/uL (1.2-3.4) Monocytes # (Auto) 0.12 K/uL (0.11-0.59) Eosinophils # (Auto) 0.04 K/uL (0-0.5) Basophils # (Auto) 0.01 K/uL (0-0.2) RDW Standard Deviation 45.5 fL (36.4-46.3) RDW Coefficient of Variation 12.8 % (11.5-14.5) Immature Granulocyte % (Auto) 0.2 % Immature Granulocyte # (Auto) 0.02 K/uL (0.00-0.02) Anion Gap 7.0 mmol/L (3-11) Est Creatinine Clear Calc Drug Dose 44.8 ml/min Estimated GFR () 55.3 Estimated GFR (Non- 47.7 BUN/Creatinine Ratio 20.6 (10-20) Calcium Level 10.0 mg/dl (8.5-10.1) Total Bilirubin 0.5 mg/dl (0.2-1) Direct Bilirubin 0.1 mg/dl (0-0.2) Aspartate Amino Transf (AST/SGOT) 33 U/L (15-37) Alanine Aminotransferase (ALT/SGPT) 39 U/L (12-78) Alkaline Phosphatase 80 U/L (45-117) Total Protein 8.3 gm/dl (6.4-8.2) Albumin 3.9 gm/dl (3.4-5.0) Lipase 468 U/L (73-393) Venous Blood pH 7.43 (7.36-7.41) Venous Blood Partial Pressure CO2 42 mmHg (38.0-50.0) Venous Blood Partial Pressure O2 29 mmHg Venous Blood HCO3 28 mmol/L Venous Blood Oxygen Saturation < 60.0 % Venous Blood Base Excess 2.9 mEq/L Influenza Type A Antigen Neg for Influ A (NEG) Influenza Type B Antigen Neg for Influ B (NEG) Bedside Lactic Acid Venous 2.50 mmol/L (0.90-1.70) Laboratory results reviewed by me Medications Administered Medications (Trade) Dose Ordered Sig/Nataly Route Start Time Stop Time Status Last Admin Dose Admin Sodium Chloride 1,000 ml @ 999 mls/hr Q1H1M IV 09/26/16 20:45 09/27/16 00:13 DC 09/26/16 22:42 999 MLS/HR Ondansetron HCl (Zofran Inj) 4 mg NOW STAT IV 09/26/16 20:43 09/26/16 20:47 DC 09/26/16 21:10 4 MG Sodium Chloride 1,000 ml @ 999 mls/hr Q1H1M STAT IV 09/26/16 20:43 09/26/16 21:43 DC 09/26/16 21:10 999 MLS/HR Acetaminophen (Tylenol Tab) 1,000 mg NOW STAT PO 09/26/16 22:01 09/26/16 22:02 DC 09/26/16 22:06 1,000 MG Ondansetron HCl (Zofran Inj) 4 mg NOW STAT IV 09/26/16 22:01 09/26/16 22:02 DC 09/26/16 22:06 4 MG Vancomycin HCl 1000 mg/Sodium Chloride 270 ml @ 125 mls/hr NOW STAT IV 09/26/16 22:40 09/27/16 00:49 DC 09/26/16 23:05 125 MLS/HR Ceftriaxone Sodium (Rocephin Inj) 1 gm NOW STAT IV 09/26/16 22:40 09/26/16 22:42 DC 09/26/16 23:05 1 GM Metronidazole (Flagyl / Nss) 500 mg NOW STAT IV 09/26/16 22:40 09/26/16 22:42 DC 09/26/16 23:36 500 MG ECG Indication: weakness Rate (beats per minute): 117 Rhythm: sinus tachycardia Findings: Q waves (Inferior Q-waves in lead 3 and AVF), other (Normal NV, QRS and QTC. Due to poor study, difficult to interpret. No STS changes or TWI. ) ED Course 2033: The patient was evaluated in room B10. A complete history and physical exam was performed. 2129: I reevaluated the patient. She is resting comfortably. 2223: I discussed the patients case with Dr. Mckinnon, [facility] Hospitalist. The patient will be further evaluated. 2229: I reevaluated the patient. I discussed my recommendation that she remain in the hospital for further evaluation and management and she verbalized complete understanding and agreement. Medical Decision The patient is a 81 year old white female with a past medical history of autoimmune hepatitis, hypertension, CKD, GERD, diverticulosis, and DM type II who presents to the ED with a cc of flu like symptoms beginning this afternoon. Triage Nursing notes reviewed. The patient's presentation and history were concerning for pneumonia, bronchitis , HCAP and flu. ST rate of 117. Normal NV, QRS and QTC. Due to poor study, difficult to interpret, no STS changes or TWI. Inferior Q-waves in lead 3 and AVF. Patient was evaluated at the bedside and had lab work EKGs as well as cultures drawn given her fever and tachycardia. Patient's white count was 9000 with any severe L at abnormalities or elevations in her liver enzymes and lipase. EKG showed sinus tachycardia without any acute ischemic changes. Patient was given 2 L of normal saline still had some persistent tachycardia although the patient felt improved. Patient was treated with antipyretics. Patient did have mild lactate 2.5. Patient had a negative chest x-ray for consolidation just showed chronic changes of interstitial lung disease. UA neg for infection. Patient not meningitis, alterred. GCS 15, follows commands and no numbness, tingling, or weakness. Given patient's febrile illness with an undisclosed source resolution antibiotics were started empirically especially in light of patients maintenance immunosuppresion therapy. I spoke with the hospitalist agreed the patient would benefit from at least an observation period for further management. Medication Reconcilliation Current Medication List: was personally reviewed by me Blood Pressure Screening Patient's blood pressure: Elevated blood pressure Blood pressure disposition: Elevated BP felt to be situational Consults Time Called: 2221 Consulting Physician: [facility] Returned Call: 2223 I discussed the patients case with [facility]. The patient will be further evaluated. Impression Primary Impression: Viral URI Additional Impressions: Dehydration Immunosuppression Fever Scribe Attestation The scribe's documentation has been prepared under my direction and personally reviewed by me in its entirety. I confirm that the note above accurately reflects all work, treatment, procedures, and medical decision making performed by me. Departure Information Dispostion Being Evaluated By Hospitalist Referrals Marivel Yoon M.D. (PCP) Patient Instructions My [facility] Problem Qualifiers Additional Impressions: Fever Fever type: unspecified Qualified Codes: R50.9 - Fever, unspecified
[2016-09-26] MEDS: SODIUM CHLORIDE 0.9% 1000ML 1,000 ML IV SCH ×3 (21:10→22:42)
--- NOTE | 2016-09-26 21:15 | DIAGNOSTIC IMAGING REPORT ---
CHEST ONE VIEW PORTABLE CLINICAL HISTORY: ILD, on steroids, fever, cough COMPARISON STUDY: Chest CT and chest radiograph September 14, 2016. FINDINGS: Lung volumes are diminished. This is unchanged. Interstitial thickening is chronic. No consolidation is identified. There is no evidence for pulmonary edema. IMPRESSION: 1. No acute cardiopulmonary findings. 2. Chronic interstitial thickening suggestive of interstitial lung disease. Electronically signed by: Jamie العراقي M.D. 09/26/2016 9:14 PM Dictated Date/Time: 09/26/2016 9:12 PM
[2016-09-26 21:20] LABS: BASO % 0.1 %; BASO ABS # 0.01 K/uL (0-0.2); COMPLETE YES; EOS % 0.4 %; HEMATOCRIT 43.9 % (37-47); IG% 0.2 %; LYMPH % 4.7 %; LYMPH ABS # 0.43 K/uL (1.2-3.4); MEAN CELL VOLUME 97.3 fL (80-100); MEAN CORPUSCULAR HEMOGLOBIN 33.5 pg (25-34); MEAN CORPUSCULAR HGB CONC 34.4 g/dl (32-36); MEAN PLATELET VOLUME 10.1 fL (7.4-10.4); MONO % 1.3 %; NEUT % 93.3 %; PLATELET COUNT 229 K/uL (130-400); RED BLOOD COUNT 4.51 M/uL (4.2-5.4); WHITE BLOOD COUNT 9.16 K/uL (4.8-10.8)
[2016-09-26 21:41] LABS: VEN BLD GAS O2 SATURATION < 60.0 %; VEN BLOOD GAS BASE EXCESS 2.9 mEq/L; VENOUS BLOOD GAS PCO2 42 mmHg (38.0-50.0); VENOUS BLOOD GAS PO2 29 mmHg
[2016-09-26] MEDS ORDERED: CALC600T45 PO (21:45)
[2016-09-26] MEDS ORDERED: ACETAMINOPHEN 500 MG TAB PO STA (22:01)
[2016-09-26 22:12] LABS: BUN/CREATININE RATIO 20.6 (10-20); CREATININE 1.1 mg/dl (0.60-1.20); POTASSIUM 4.8 mmol/L (3.5-5.1)
[2016-09-26] MEDS ORDERED: METRONIDAZOLE 500MG / 100ML NSS IV STA (22:40)
[2016-09-26] MEDS ORDERED: CEFTRIAXONE SOD INJ 1 GM ADDVIAL IV STA (22:40)
[2016-09-26] MEDS ORDERED: VANCOMYCIN INJ 1,000 MG in SODIUM CHLORIDE 0.9% 250ML 250 ML IV STA (22:40)
[2016-09-26] MEDS ORDERED: SODIUM CHLORIDE 0.9% 1000ML 1,000 ML IV SCH (22:45)
[2016-09-26] MEDS ORDERED: VANCOMYCIN 1GM/270ML NSS ONE (22:59)
[2016-09-26] MEDS ORDERED: IPRATROPIUM BROMIDE NEB SOLN 0.02% 2.5 ML VIAL INH PRN (23:30)
[2016-09-26] MEDS ORDERED: ACETAMINOPHEN 325 MG TAB PO PRN ×2 (23:30)
[2016-09-26] MEDS ORDERED: ALBUTEROL 0.083% NEBU SOLN 3 ML VIAL INH PRN (23:30)
[2016-09-26] MEDS ORDERED: TRIAMCINOLONE ACET 0.1% CR 15 GM TUBE EXT PRN (23:30)
[2016-09-26] MEDS ORDERED: ONDANSETRON INJ 2 MG/ML 2 ML VIAL IV PRN (23:30)
[2016-09-26] MEDS ORDERED: AMMONIUM LACTATE 12% LOTION 225 GM BTL EXT PRN (23:30)
[2016-09-26] MEDS ORDERED: ALBUTEROL HFA 8 GM INHALER INH PRN (23:30)
[2016-09-27] MEDS ORDERED: METHYLPREDNISOLONE IV 40 MG in SYRINGE 0 ML IV STA (00:10)
[2016-09-27] MEDS ORDERED: IV FLUIDS COMPLETED PRN (00:30)
[2016-09-27 00:54] VITALS: BP 150/74; PULSE 117; TEMP 38.4; O2SAT 97; Ht 177.8 cm; Wt 69.0 kg
--- NOTE | 2016-09-27 01:56 | HISTORY & PHYSICAL EXAMINATION ---
DATE OF ADMISSION: 09/26/2016 PRIMARY CARE PHYSICIAN: Dr. Mohamud from [place]. CHIEF COMPLAINT: Headaches since Thursday last and fever with chills for the last day or two. HISTORY OF PRESENT COMPLAINT: She is a 81-year-old female with a significant past medical history including autoimmune hepatitis, treated with steroid; Sjogren disease; type 2 diabetes; general osteoarthritis; esophageal reflux; hypothyroidism; hyperlipidemia; interstitial lung disease; apparently was sent in home from this hospital on 09/18/2016. During that time, she was admitted with right knee pain and effusion, and also malaise, fever and chills. She was evaluated by her acute specialist, Dr. Casillas and also she was seen by orthopedic surgeon. She received 1 more dose of steroid during her last admission and her knee was aspirated as an outpatient by acute specialist. During that admission, she has had a lot of investigation including CT of the chest to rule out pulmonary embolism which was ruled out. She did have mild progressive interstitial lung disease with low grade pneumonitis during that time. She had an MRI of the lumbar spine for ongoing back pain that did show there is no disc herniation or stenosis. No destructive bony lesion was identified. Lower extremity MRI did show generalized nonspecific soft tissue edematous change about the knee and significant joint effusion with no evidence fat-fluid level. She was sent home and her azathioprine was started with a half a dose of 100 mg as an outpatient from Thursday. She could not take the medication due to nausea, but she took half the pill this morning. Since Thursday, she has been complaining of headache mostly in the bifrontal area and for the last day or two she has been complaining of increasing pain all over the body, but not in any particular joint. She also did have some diarrhea this morning but denies to have any problem with urine and no acute joint inflammation. In the ER, she was noted to be very tachycardic, heart rate was around 130 and 140. Her white count did not show any increase or any differential, but given her immunosuppressive status and probable diagnosis of sinusitis, she was admitted to medical floor for continuation of care. In the ER she received vancomycin, ceftriaxone and also metronidazole. PAST MEDICAL HISTORY: Significant for autoimmune hepatitis, treated with steroid, Sjogren disease, interstitial lung disease, type 2 diabetes, allergic rhinitis, general osteoarthritis, hypertension, hyperlipidemia, esophageal reflux, chronic kidney disease. PAST SURGICAL HISTORY: Liver biopsy in 2005, ligation of oviduct, biopsy of the uterine lining in 1999. FAMILY HISTORY: Brother has diabetes and also bladder CA. Mother had hypertension. Father had dementia as well. SOCIAL HISTORY: She is a . She has 5 children. She does not smoke. She drinks occasionally, and she has been reasonably ambulant. ALLERGIES: SHE IS ALLERGIC TO BACTRIM, LATEX, NIACIN AND NAPROXEN. MEDICATIONS: Azathioprine 50 mg daily, artificial tears as directed, Tylenol 325 mg as directed for pain, albuterol HFA 2 puffs q. 6 hourly p.r.n., albuterol nebulized solutions q. 4 hourly p.r.n., calcium with vitamin D one tablet daily, Pepcid 20 mg tablets 10 mg daily, Atrovent via nebulizer solution 4 times daily as needed, ipratropium bromide nasal spray 2 sprays twice daily, levothyroxine 50 mcg daily, lisinopril 5 mg daily, Toprol-XL 25 mg daily, prednisone 15 mg daily, and Aristocort as directed. REVIEW OF SYSTEMS: Other systemic review unremarkable except those mentioned in history of present complaint. PHYSICAL EXAMINATION: GENERAL: On examination in the Emergency Room, she was having some fever with chills but no other acute symptoms. VITAL SIGNS: Temperature 39.4, pulse was 135, blood pressure 202/96, saturation 88% on room air. HEENT: Remarkable for Flushed face, tenderness noted over her maxillary and frontal sinus areas bilaterally. CHEST: Decreased breath sounds with fine crackles at the bases. HEART: S1, S2 regular. ABDOMEN: Soft, benign, mildly tender in the left lower quadrant. No guarding or rigidity. Bowel sounds present. EXTREMITIES: Negative for any edema. MUSCULOSKELETAL: Did not show any acute arthritis involving any joint. CENTRAL NERVOUS SYSTEM: She was alert, awake, oriented x3. Generally weak but no focal sensory and/or motor deficit appreciated. LABORATORY DATA: Noted today white count was 9.16, H&H 15.1/43.9, platelet was 229. Venous blood gas pH 7.43, pCO2 42, pO2 29. Chemistry; sodium 133, potassium 4.8, chloride 96, carbon dioxide 30, BUN 23, creatinine 1.10, random glucose 184. Lactic acid of 2.80. LFTs normal. Lipase was 468. Influenza A and B antigens negative. Chest x-ray; no acute cardiopulmonary finding, chronic interstitial thickening suggestive of interstitial lung disease. EKG was in sinus rhythm, rate of 117 per minute, normal axis and nonspecific ST-T wave changes. IMPRESSION AND PLAN: 1. Acute febrile illness. The patient does not have any overt symptoms of pneumonia and/or any urinary tract infection. She is immunosuppressed, so blood cultures were taken and she was given intravenous vancomycin, ceftriaxone and also a dose of Flagyl for possible diagnosis of C. diff colitis. We will get a stool for Clostridium difficile toxin. Her influenza A and B have been negative. Most likely she has sinusitis and would like to continue with Levaquin from tomorrow; but UA, urine culture and blood culture have to be followed up. 2. Generalized aches and pains but no acute arthritis involving any joint. She has not been taking heart Imuran and she is not going to take it as she told me. Her acute specialist has been trying to taper down steroid and she takes prednisone 15 mg daily. We will give her 40 of Solu-Medrol one time and continue with her usual dose of prednisone. We will get an outpatient appointment with her acute specialist on discharge. 3. Autoimmune hepatitis treated with steroid and also Sjogren disease, does not have any acute symptoms from those. 4. Diabetes type 2. She does not take any medications for diabetes. We will put her on sliding scale insulin while she is in the hospital. 5. Hypertension. Her blood pressure seems to be elevated. We will continue with her current medications to control blood pressure. 6. Hyperlipidemia. Continue with statin. 7. Gastrointestinal prophylaxis with Pepcid. 8. Deep venous thrombosis prophylaxis with subcutaneous heparin. 9. Code status. She will be a full code. In my clinical judgment, the beneficiary meets criteria as per CMS for 2 midnight stay in the hospital. MTDD
[2016-09-27] MEDS ORDERED: LEVOFLOXACIN CONSULT ACTIVE PRN (03:00)
[2016-09-27] MEDS: HEPARIN SOD 5000 UNIT/0.5 ML CARP SQ SCH ×3 (06:31→21:41)
[2016-09-27] MEDS: LEVOTHYROXINE 50 MCG TAB PO SCH (06:32)
[2016-09-27 07:59] VITALS: BP 137/80; PULSE 91; TEMP 36.7; O2SAT 97
[2016-09-27] MEDS: METOPROLOL SUCC 25MG EXT REL TAB PO SCH (08:07)
[2016-09-27] MEDS: LISINOPRIL 5 MG TAB PO SCH (08:07)
[2016-09-27] MEDS: CALCIUM 600MG + VIT D 400 IU TAB PO SCH (08:08)
[2016-09-27] MEDS: FAMOTIDINE 20 MG TAB PO SCH (08:08)
[2016-09-27] MEDS ORDERED: LEVOFLOXACIN / D5W 750 MG in PREMIXED IN D5W 150 ML IV SCH (09:00)
[2016-09-27 09:44] LABS: URINE APPEARANCE CLEAR (CLEAR); URINE BILIRUBIN NEG (NEG); URINE COLOR YELLOW; URINE NITRITE NEG (NEG); URINE PH 5.5 (4.5-7.5); UROBILINOGEN NEG (NEG); ZZUR CULT IF INDIC CLEAN CATCH NO
[2016-09-27 09:50] LABS: MANUAL MICROSCOPIC REQUIRED? NO; REVIEW REQ? NO
[2016-09-27 15:51] VITALS: BP 155/80; PULSE 78; TEMP 36.8; O2SAT 96
[2016-09-27] MEDS ORDERED: DEXTROSE 50% 50 ML SYR IV PRN (16:45)
[2016-09-27] MEDS ORDERED: GLUCOSE 10 TABS/TUBE PO PRN (16:45)
[2016-09-27] MEDS ORDERED: GLUCAGON FOR INJ 1 MG VIAL SQ PRN (16:45)
[2016-09-27] MEDS ORDERED: GLUCOSE 40% GEL 15 GM TUBE PO PRN (16:45)
--- NOTE | 2016-09-27 17:36 | Progress Note ---
Internal Med Progress Note Date of Service: Sep 27, 2016. Provider Documentation: SUBJECTIVE: feels much better today no fever or chills, no cough still has frontal headache , but much improved OBJECTIVE: Vital Signs-as noted below Exam: General-no sign of distress Eyes-sclera non icteric ENT-NAD , tenderness on palpation on frontal and maxillary sinus Neck-no JVD Lungs-CTA Heart-regular S1/S2 Abdomen-soft, non tender Extremities-no lower ext edema Neuro-AAO x3, no focal deficit Lab data as noted below. ASSESSMENT & PLAN: FEVER /HEADACHE : possible duet to sinusitis -has frontal headache , tenderness on maxillary sinuses normal white count started empirically on Levaquin will change it to Augmentin -better coverage HX OF AUTOIMMUNE HEPATITIS /SJOGRAN'S DISEASE : follows with rheumatology has been on chronic prednisone recently started on trial of Imuran in attempt to wean her off prednisone pt mentions of severe GI symptoms -nausea /epigastric discomfort after taking 50 mg of Imuran has been on hold resumed chronic prednisone dose pt will continue to follow up with Rheumatology as out patient TYPE 2 DM : not on any meds BSG elevated possible due to steroids added insulin SSI Check Hb A1C FULL CODE DVT PROPHYLAXIS sub q heparin DISPOSITION possible discharge home tomorrow Medicine follow up with Dr Yoon Vital Signs: Date Time Temp Pulse Resp B/P (MAP) Pulse Ox O2 Delivery O2 Flow Rate FiO2 09/27/16 16:00 Room Air 09/27/16 15:51 36.8 78 18 155/80 (105) 96 Room Air 09/27/16 08:00 Room Air 09/27/16 07:59 36.7 91 18 137/80 (99) 97 Room Air 09/27/16 00:54 38.4 117 20 150/74 97 Nasal Cannula 2.0 09/26/16 23:30 39.2 121 22 161/78 97 Nasal Cannula 2.0 09/26/16 23:01 162/89 09/26/16 23:00 129 21 99 Nasal Cannula 2.0 09/26/16 22:31 168/99 09/26/16 22:30 132 25 100 Nasal Cannula 2.0 09/26/16 22:10 95 Nasal Cannula 2.0 09/26/16 22:09 94 Nasal Cannula 2.0 09/26/16 22:09 85 Room Air 09/26/16 22:01 202/96 09/26/16 22:00 135 17 88 09/26/16 21:59 204/106 09/26/16 21:58 212/106 09/26/16 21:58 39.4 137 20 212/106 93 Room Air 09/26/16 21:30 125 19 97 09/26/16 21:25 127 18 97 09/26/16 21:10 196/135 09/26/16 20:55 123 20 98 09/26/16 20:50 200/109 09/26/16 20:28 117 15 96 09/26/16 20:20 117 09/26/16 19:58 38.6 125 22 191/122 96 Room Air Lab Results: Results Past 24 Hours Test 09/26/16 19:34 09/26/16 21:08 09/26/16 21:10 09/26/16 21:21 Range/Units White Blood Count 9.16 4.8-10.8 K/uL Red Blood Count 4.51 4.2-5.4 M/uL Hemoglobin 15.1 12.0-16.0 g/dL Hematocrit 43.9 37-47 % Mean Corpuscular Volume 97.3 80-100 fL Mean Corpuscular Hemoglobin 33.5 25-34 pg Mean Corpuscular Hemoglobin Concent 34.4 32-36 g/dl Platelet Count 229 130-400 K/uL Mean Platelet Volume 10.1 7.4-10.4 fL Neutrophils (%) (Auto) 93.3 % Lymphocytes (%) (Auto) 4.7 % Monocytes (%) (Auto) 1.3 % Eosinophils (%) (Auto) 0.4 % Basophils (%) (Auto) 0.1 % Neutrophils # (Auto) 8.54 1.4-6.5 K/uL Lymphocytes # (Auto) 0.43 1.2-3.4 K/uL Monocytes # (Auto) 0.12 0.11-0.59 K/uL Eosinophils # (Auto) 0.04 0-0.5 K/uL Basophils # (Auto) 0.01 0-0.2 K/uL RDW Standard Deviation 45.5 36.4-46.3 fL RDW Coefficient of Variation 12.8 11.5-14.5 % Immature Granulocyte % (Auto) 0.2 % Immature Granulocyte # (Auto) 0.02 0.00-0.02 K/uL Sodium Level 133 136-145 mmol/L Potassium Level 4.8 3.5-5.1 mmol/L Chloride Level 96 98-107 mmol/L Carbon Dioxide Level 30 21-32 mmol/L Anion Gap 7.0 3-11 mmol/L Blood Urea Nitrogen 23 7-18 mg/dl Creatinine 1.10 0.60-1.20 mg/dl Est Creatinine Clear Calc Drug Dose 44.8 ml/min Estimated GFR () 55.3 Estimated GFR (Non- 47.7 BUN/Creatinine Ratio 20.6 10-20 Random Glucose 184 70-99 mg/dl Calcium Level 10.0 8.5-10.1 mg/dl Total Bilirubin 0.5 0.2-1 mg/dl Direct Bilirubin 0.1 0-0.2 mg/dl Aspartate Amino Transf (AST/SGOT) 33 15-37 U/L Alanine Aminotransferase (ALT/SGPT) 39 12-78 U/L Alkaline Phosphatase 80 45-117 U/L Total Protein 8.3 6.4-8.2 gm/dl Albumin 3.9 3.4-5.0 gm/dl Lipase 468 73-393 U/L Venous Blood pH 7.43 7.36-7.41 Venous Blood Partial Pressure CO2 42 38.0-50.0 mmHg Venous Blood Partial Pressure O2 29 mmHg Venous Blood HCO3 28 mmol/L Venous Blood Oxygen Saturation < 60.0 % Venous Blood Base Excess 2.9 mEq/L Influenza Type A Antigen Neg for Influ A NEG Influenza Type B Antigen Neg for Influ B NEG Bedside Lactic Acid Venous 2.50 0.90-1.70 mmol/L Test 09/27/16 08:45 09/27/16 16:22 Range/Units Urine Color YELLOW Urine Appearance CLEAR CLEAR Urine pH 5.5 4.5-7.5 Urine Specific [place] 1.010 1.000-1.030 Urine Protein NEG NEG Urine Glucose (UA) NEG NEG Urine Ketones NEG NEG Urine Occult Blood NEG NEG Urine Nitrite NEG NEG Urine Bilirubin NEG NEG Urine Urobilinogen NEG NEG Urine Leukocyte Esterase NEG NEG Bedside Glucose 150 70-90 mg/dl Microbiology Results 09/26/16 Blood Culture, Received Pending 09/26/16 Blood Culture, Received Pending 09/27/16 C.difficile Toxin B Gene (PCR) - Final, Complete No C. difficile toxin B gene detected
[2016-09-27] MEDS ORDERED: AMOX1TAB43 PO (18:09)
--- NOTE | 2016-09-27 18:10 | Discharge Instructions ---
Discharge Instructions Date of Service Sep 27, 2016. Admission Reason for Admission: Febrile Illness, Sinusitis Acute Discharge Discharge Diagnosis / Problem: FEVER /ACUTE SINUTISIT Discharge Goals Goal(s): Improve disease control, Diagnostic testing, Therapeutic intervention Activity Recommendations Activity Limitations: resume your previous activity Shower/Bathe: no limitations Driving or Machine Use: no limitations . Instructions / Follow-Up Instructions / Follow-Up HOSPITAL FOLLOW UP 10/03/2016 2:00 PM Pilar Mohamud DO Internal Medicine [facility] RHEUMATOLOGY FOLLOW UP 10/01/2016 10:00 AM Cholo Casillas MD Rheumatology [facility] Diet Patient's current hospital diet: Diabetes Type 2 Diet Discharge Diet Recommended Diet: Diabetes Type 2 Diet Pending Studies Studies pending at discharge: no Medical Emergencies . Who to Call and When: Medical Emergencies: If at any time you feel your situation is an emergency, please call 911 immediately. . Non-Emergent Contact Non-Emergency issues call your: Primary Care Provider . . "Provider Documentation" section prepared by Mirela Schilling. . VTE Core Measure Inpt VTE Proph given/why not?: Unfractionated heparin SQ
[2016-09-27] MEDS ORDERED: SODIUM CHLORIDE 0.9% 1000ML 1,000 ML IV SCH (18:15)
[2016-09-27] MEDS: AMOXICILLIN/CLAVULANATE TAB 875 MG TAB PO SCH (19:37)
[2016-09-27] MEDS: INSULIN HUMAN REGULAR SC SCH (21:40)
[2016-09-27 23:55] VITALS: BP 184/85; PULSE 77; TEMP 36.9; O2SAT 96
[2016-09-28] MEDS ORDERED: CLONIDINE HCL 0.1 MG TAB PO PRN (01:45)
[2016-09-28] MEDS ORDERED: NURSING VERBAL MED ORDER ONE (02:30)
[2016-09-28 05:51] VITALS: BP 151/75
[2016-09-28] MEDS: HEPARIN SOD 5000 UNIT/0.5 ML CARP SQ SCH ×2 (06:01→14:00)
[2016-09-28] MEDS: LEVOTHYROXINE 50 MCG TAB PO SCH (06:03)
[2016-09-28 07:45] VITALS: BP 146/79; PULSE 69; TEMP 36.9; O2SAT 94
[2016-09-28 07:54] LABS: BUN/CREATININE RATIO 18.4 (10-20); CALCIUM 8.5 mg/dl (8.5-10.1); CREATININE 0.81 mg/dl (0.60-1.20); POTASSIUM 3.9 mmol/L (3.5-5.1)
[2016-09-28] MEDS: AMOXICILLIN/CLAVULANATE TAB 875 MG TAB PO SCH (08:19)
[2016-09-28] MEDS: FAMOTIDINE 20 MG TAB PO SCH (08:19)
[2016-09-28] MEDS: LISINOPRIL 5 MG TAB PO SCH (08:20)
[2016-09-28] MEDS: METOPROLOL SUCC 25MG EXT REL TAB PO SCH (08:20)
[2016-09-28] MEDS: CALCIUM 600MG + VIT D 400 IU TAB PO SCH (08:20)
[2016-09-28] MEDS: INSULIN HUMAN REGULAR SC SCH ×2 (08:22→12:36)
[2016-09-28] MEDS ORDERED: AMOXICILLIN/CLAVULANATE TAB 875 MG TAB PO SCH (10:45)
[2016-09-28 10:54] VITALS: BP 173/88; PULSE 71
--- NOTE | 2016-09-28 11:53 | Progress Note ---
Internal Med Progress Note Date of Service: Sep 28, 2016. Provider Documentation: SUBJECTIVE: no fever or chills today feels much better no headache , feels well enough to go home OBJECTIVE: Vital Signs-as noted below Exam: General-no sign of distress Eyes-sclera non icteric ENT-NAD , non tender on palpation of maxillary sinus Neck-no JVD Lungs-CTA Heart-regular S1/S2 Abdomen-soft, non tender Extremities-no lower ext edema Neuro-AAO x3, no focal deficit Lab data as noted below. ASSESSMENT & PLAN: FEVER /HEADACHE : symptom has resolved possible duet to sinusitis -has frontal headache , tenderness on maxillary sinuses normal white count cont PO Augmentin total 5 days HX OF AUTOIMMUNE HEPATITIS /SJGREN'S DISEASE : follows with rheumatology has been on chronic prednisone recently started on trial of Imuran in attempt to wean her off prednisone pt mentions of severe GI symptoms -nausea /epigastric discomfort after taking 50 mg of Imuran has been on hold resumed chronic prednisone dose 15 mg PO Daily pt will continue to follow up with Rheumatology as out patient HTN : BP elevated last evening pt denies of any pain or discomfort on Lisinopril 5 mg/ Toprol XL 25 mg -received AM dose of medications already extra dose of 5 mg Lisinopril ordered increase Lisinopril to 10 mg daily will have continued follow up with Family physician as out pt for blood pressure monitoring TYPE 2 DM : not on any meds BSG elevated possible due to steroids added insulin SSI Check Hb A1C FULL CODE DVT PROPHYLAXIS sub q heparin DISPOSITION stable to be discharge home today Medicine follow up with Dr Yoon Vital Signs: Date Time Temp Pulse Resp B/P (MAP) Pulse Ox O2 Delivery O2 Flow Rate FiO2 09/28/16 10:54 71 173/88 (116) 09/28/16 08:00 Room Air 09/28/16 07:45 36.9 69 18 146/79 (101) 94 Room Air 09/28/16 05:51 151/75 (100) 09/28/16 00:00 Room Air 09/27/16 23:55 36.9 77 20 184/85 (118) 96 Room Air 09/27/16 20:00 Room Air 09/27/16 16:00 Room Air 09/27/16 15:51 36.8 78 18 155/80 (105) 96 Room Air Lab Results: Results Past 24 Hours Test 09/27/16 16:22 09/27/16 19:45 09/28/16 06:51 09/28/16 07:23 Range/Units Bedside Glucose 150 173 85 70-90 mg/dl Sodium Level 142 136-145 mmol/L Potassium Level 3.9 3.5-5.1 mmol/L Chloride Level 106 98-107 mmol/L Carbon Dioxide Level 29 21-32 mmol/L Anion Gap 7.0 3-11 mmol/L Blood Urea Nitrogen 15 7-18 mg/dl Creatinine 0.81 0.60-1.20 mg/dl Est Creatinine Clear Calc Drug Dose 60.9 ml/min Estimated GFR () 80.1 Estimated GFR (Non- 69.1 BUN/Creatinine Ratio 18.4 10-20 Random Glucose 85 70-99 mg/dl Lactic Acid Level 0.9 0.4-2.0 mmol/L Calcium Level 8.5 8.5-10.1 mg/dl Test 09/28/16 11:33 Range/Units Bedside Glucose 118 70-90 mg/dl Microbiology Results 09/27/16 C.difficile Toxin B Gene (PCR) - Final, Complete No C. difficile toxin B gene detected
[2016-09-28] MEDS ORDERED: LISI-461 PO (11:59)
--- NOTE | 2016-09-28 11:59 | Discharge Summary ---
Discharge Summary Date of Service Sep 28, 2016. Discharge Summary Admission Date: Sep 27, 2016 at 01:39 Discharge Date: Sep 27, 2016 Discharge Disposition: Home with services Principal Diagnosis: FEVER /ACUTE SINUITIS Procedures: CHEST XRAY : IMPRESSION: 1. No acute cardiopulmonary findings. 2. Chronic interstitial thickening suggestive of interstitial lung disease. Medication Reconciliation New Medications: Lisinopril (Lisinopril) 10 Mg Tab 1 TAB PO DAILY, #30 TABS 2 Refills Amoxicillin & Pot Clavulanate (Amoxicillin/Clavulanate P) 1 Tab Tab 875 MG PO BIDM for 4 Days, #8 TAB Continued Medications: Acetaminophen Tab (Tylenol) 325 Mg Tab 325 MG PO DIRECTED PRN for Pain or Fever, TAB Albuterol Hfa (Ventolin Hfa) 200 Puffs/49600 Mcg Aers 2 PUFFS INH Q6H PRN for SOB/Wheezing Albuterol Sulf (Proventil 0.083% 2.5MG/3ML) 2.5 Mg/3 Ml Nebu 2.5 MG INH Q4H PRN for SOB/Wheezing, EA Calcium Carbonate-Vitamin D (Calcium Carbonate/Vitamin) 1 Tab Tab 1 TAB PO DAILY Famotidine (Pepcid) 20 Mg Tab 10 MG PO DAILY PRN, 0 Refills Qeftrhrw-Rvdbbtrotdpk-Bpgspjzx (Artificial Tears) 1 Roshan Roshan DIRECTED Ipratropium Baldwin (Atrovent 0.02% Soln) 2.5 Ml Nebu 1 VIAL INH Q4H PRN for SOB/Wheezing Ipratropium Baldwin (Nasal) (Ipratropium Baldwin) 0.03 % Spr 2 SPRAYS SHEILA BID Lactic Acid (Ammonium Lactate Cream 12%) 280 Gm Cr 1 APPLN TOP BID PRN for DRYNESS Levothyroxine Sodium (Synthroid) 50 Mcg Tab 50 MCG PO DAILY, TAB Metoprolol Succ (Toprol Xl) (Toprol-Xl) 25 Mg Tabcr 25 MG PO DAILY Prednisone (Prednisone) 5 Mg Tab 15 MG PO DAILY, TAB Triamcinolone Acet (Aristocort 0.1%) 90 Appln/30 Gm Cr 1 APPLN EXT BID PRN for RASH Discontinued Medications: Azathioprine (Imuran) 50 Mg Tab 100 MG PO DAILY, TAB Lisinopril (Zestril) 5 Mg Tab 5 MG PO DAILY, TAB Admission Information HPI (per Admitting provider): DATE OF ADMISSION: 09/26/2016 PRIMARY CARE PHYSICIAN: Dr. Mohamud from [place]. CHIEF COMPLAINT: Headaches since Thursday last and fever with chills for the last day or two. HISTORY OF PRESENT COMPLAINT: She is a 81-year-old female with a significant past medical history including autoimmune hepatitis, treated with steroid; Sjogren disease; type 2 diabetes; general osteoarthritis; esophageal reflux; hypothyroidism; hyperlipidemia; interstitial lung disease; apparently was sent in home from this hospital on 09/18/2016. During that time, she was admitted with right knee pain and effusion, and also malaise, fever and chills. She was evaluated by her finishing pan operator, Dr. Casillas and also she was seen by orthopedic surgeon. She received 1 more dose of steroid during her last admission and her knee was aspirated as an outpatient by finishing pan operator. During that admission, she has had a lot of investigation including CT of the chest to rule out pulmonary embolism which was ruled out. She did have mild progressive interstitial lung disease with low grade pneumonitis during that time. She had an MRI of the lumbar spine for ongoing back pain that did show there is no disc herniation or stenosis. No destructive bony lesion was identified. Lower extremity MRI did show generalized nonspecific soft tissue edematous change about the knee and significant joint effusion with no evidence fat-fluid level. She was sent home and her azathioprine was started with a half a dose of 100 mg as an outpatient from Thursday. She could not take the medication due to nausea, but she took half the pill this morning. Since Thursday, she has been complaining of headache mostly in the bifrontal area and for the last day or two she has been complaining of increasing pain all over the body, but not in any particular joint. She also did have some diarrhea this morning but denies to have any problem with urine and no acute joint inflammation. In the ER, she was noted to be very tachycardic, heart rate was around 130 and 140. Her white count did not show any increase or any differential, but given her immunosuppressive status and probable diagnosis of sinusitis, she was admitted to medical floor for continuation of care. In the ER she received vancomycin, ceftriaxone and also metronidazole. PAST MEDICAL HISTORY: Significant for autoimmune hepatitis, treated with steroid, Sjogren disease, interstitial lung disease, type 2 diabetes, allergic rhinitis, general osteoarthritis, hypertension, hyperlipidemia, esophageal reflux, chronic kidney disease. PAST SURGICAL HISTORY: Liver biopsy in 2005, ligation of oviduct, biopsy of the uterine lining in 1999. FAMILY HISTORY: Brother has diabetes and also bladder CA. Mother had hypertension. Father had dementia as well. SOCIAL HISTORY: She is a . She has 5 children. She does not smoke. She drinks occasionally, and she has been reasonably ambulant. ALLERGIES: SHE IS ALLERGIC TO BACTRIM, LATEX, NIACIN AND NAPROXEN. MEDICATIONS: Azathioprine 50 mg daily, artificial tears as directed, Tylenol 325 mg as directed for pain, albuterol HFA 2 puffs q. 6 hourly p.r.n., albuterol nebulized solutions q. 4 hourly p.r.n., calcium with vitamin D one tablet daily, Pepcid 20 mg tablets 10 mg daily, Atrovent via nebulizer solution 4 times daily as needed, ipratropium bromide nasal spray 2 sprays twice daily, levothyroxine 50 mcg daily, lisinopril 5 mg daily, Toprol-XL 25 mg daily, prednisone 15 mg daily, and Aristocort as directed. REVIEW OF SYSTEMS: Other systemic review unremarkable except those mentioned in history of present complaint. Physical Exam (per Admitting): PHYSICAL EXAMINATION: GENERAL: On examination in the Emergency Room, she was having some fever with chills but no other acute symptoms. VITAL SIGNS: Temperature 39.4, pulse was 135, blood pressure 202/96, saturation 88% on room air. HEENT: Remarkable for Flushed face, tenderness noted over her maxillary and frontal sinus areas bilaterally. CHEST: Decreased breath sounds with fine crackles at the bases. HEART: S1, S2 regular. ABDOMEN: Soft, benign, mildly tender in the left lower quadrant. No guarding or rigidity. Bowel sounds present. EXTREMITIES: Negative for any edema. MUSCULOSKELETAL: Did not show any acute arthritis involving any joint. CENTRAL NERVOUS SYSTEM: She was alert, awake, oriented x3. Generally weak but no focal sensory and/or motor deficit appreciated. Hospital Course FEVER /HEADACHE : symptom has resolved possible duet to sinusitis -has frontal headache , tenderness on maxillary sinuses normal white count cont PO Augmentin total 5 days HX OF AUTOIMMUNE HEPATITIS /SJGREN'S DISEASE : follows with rheumatology has been on chronic prednisone recently started on trial of Imuran in attempt to wean her off prednisone pt mentions of severe GI symptoms -nausea /epigastric discomfort after taking 50 mg of Imuran has been on hold resumed chronic prednisone dose 15 mg PO Daily pt will continue to follow up with Rheumatology as out patient HTN : BP elevated last evening pt denies of any pain or discomfort on Lisinopril 5 mg/ Toprol XL 25 mg -received AM dose of medications already extra dose of 5 mg Lisinopril ordered increase Lisinopril to 10 mg daily will have continued follow up with Family physician as out pt for blood pressure monitoring TYPE 2 DM : not on any meds BSG elevated possible due to steroids added insulin SSI Check Hb A1C FULL CODE DVT PROPHYLAXIS sub q heparin DISPOSITION stable to be discharge home today Medicine follow up with Dr Yoon Total time spent on discharge = 35mins This includes examination of the patient, discharge planning, medication reconciliation, and communication with other providers. Discharge Instructions DI: Medical v4 Discharge Instructions Date of Service Sep 27, 2016. Admission Reason for Admission: Febrile Illness, Sinusitis Acute Discharge Discharge Diagnosis / Problem: FEVER /ACUTE SINUITIS Discharge Goals Goal(s): Improve disease control, Diagnostic testing, Therapeutic intervention Activity Recommendations Activity Limitations: resume your previous activity Shower/Bathe: no limitations Driving or Machine Use: no limitations . Instructions / Follow-Up Instructions / Follow-Up HOSPITAL FOLLOW UP 10/03/2016 2:00 PM Pilar Mohamud DO Internal Medicine [facility] RHEUMATOLOGY FOLLOW UP 10/01/2016 10:00 AM Cholo Casillas MD Rheumatology [facility] Diet Patient's current hospital diet: Diabetes Type 2 Diet Discharge Diet Recommended Diet: Diabetes Type 2 Diet Pending Studies Studies pending at discharge: no Medical Emergencies . Who to Call and When: Medical Emergencies: If at any time you feel your situation is an emergency, please call 911 immediately. . Non-Emergent Contact Non-Emergency issues call your: Primary Care Provider . . "Provider Documentation" section prepared by Mirela Schilling. . VTE Core Measure Inpt VTE Proph given/why not?: Unfractionated heparin SQ
[2016-09-28] MEDS ORDERED: LISINOPRIL 5 MG TAB PO ONE (12:30)
[2016-09-28 14:21] VITALS: BP 170/89; PULSE 87
[2016-09-28 15:07] VITALS: BP 170/89; PULSE 87; TEMP 36.9; O2SAT 94
[2016-09-28] MEDS ORDERED: CLONIDINE HCL 0.1 MG TAB PO ONE (15:30)
[2016-09-28 16:47] VITALS: BP 134/76; PULSE 75
[2016-09-29 06:52] LABS: ESTIMATED AVERAGE GLUCOSE 157 mg/dl; HA1C FLAG Normal (Normal)
== END 2016-09-28 17:16 | disposition home health service (06) | DRG 153 ==
LOC: EDBD 19:58 → C.EDB 19:59 → C.MS2W 23:23 → ENRESERV 23:34 → OBSVTOIN 09-27 01:39
PROVIDERS: ADMIT Internal Medicine; ATTEND Hospitalist
DX: J01.00 Acute maxillary sinusitis, unspecified (principal); J84.9 Interstitial pulmonary disease, unspecified; J06.9 Acute upper respiratory infection, unspecified; M35.00 Sjogren syndrome, unspecified; N18.3 Chronic kidney disease, stage 3 (moderate); I12.9 Hypertensive chronic kidney disease with stage 1 through stage 4 chronic kidney disease, or unspecified chronic kidney disease; K21.9 Gastro-esophageal reflux disease without esophagitis; K57.90 Diverticulosis of intestine, part unspecified, without perforation or abscess without bleeding; M15.9 Polyosteoarthritis, unspecified; E86.0 Dehydration; E11.9 Type 2 diabetes mellitus without complications; E78.5 Hyperlipidemia, unspecified; Z88.2 Allergy status to sulfonamides; K75.4 Autoimmune hepatitis

== ENCOUNTER 2016-12-11 05:15 | Inpatient (IN) | payer OTHER ==
[~2016-12-11] VITALS: Ht 177.8 cm; Wt 70.1 kg
[~2016-12-11 05:15] MED LIST changes: +AMOX1TAB43 PO; -AZAT50TA17 PO; +CALC600T45 PO; +LISI-461 PO; -LISI-729 PO
[2016-12-11] MEDS ORDERED: SODIUM CHLORIDE 0.9% 500ML 500 ML IV STA (05:27)
[2016-12-11] MEDS ORDERED: FENTANYL CITRATE INJ 50 MCG/1 ML 2 ML VIAL IV STA (05:27)
[2016-12-11] MEDS ORDERED: ONDANSETRON INJ 2 MG/ML 2 ML VIAL IV STA (05:27)
--- NOTE | 2016-12-11 05:31 | EMERGENCY ROOM VISIT NOTE ---
History Report prepared by Donnell: Adwoa Diaz Under the Supervision of: Dr. Jayme Flores M.D. First contact with patient: 05:19 Stated Complaint: ABD PAIN History of Present Illness The patient is a 81 year old female who presents to the Emergency Room with complaints of constant left lower quadrant abdominal pain beginning yesterday. She reports that standing up also makes her pelvis hurt. The patient states that she was febrile and nausea. The patient also reports feeling short of breath which is what prompted her to call 911, but denies these symptoms currently. The patient also had sub-sternal chest pain, which was short and brief. She states that movement exacerbates the pain. She denies a history of diverticulitis. The patient states that she has not taken anything for pain. Source of History: patient Onset: yesterday Position: abdomen (LLQ) Timing: constant Modifying Factors (Worsening): movement Associated Symptoms: + chest pain, + SOB Review of Systems See HPI for pertinent positives & negatives. A total of 10 systems reviewed and were otherwise negative. Past Medical & Surgical Medical Problems: (1) Autoimmune hepatitis (2) Back pain (3) Benign hypertension (4) Central retinal vein occlusion of left eye (5) Cholelithiasis (6) CKD (chronic kidney disease), stage III (7) Diverticulitis (8) Diverticulosis of colon (9) Dyslipidemia (10) Febrile illness (11) GERD (gastroesophageal reflux disease) (12) Hypertension (13) HYPERTENSION NOS (14) Interstitial lung disease (15) Knee pain, acute (16) Osteoporosis (17) Seasonal allergies (18) Sinusitis, acute (19) Sjogrens syndrome (20) Type II Diabetes Surgical Problems: (1) Status post appendectomy (2) Status post tubal ligation Family History Bladder cancer BROTHER COPD (chronic obstructive pulmonary disease) BROTHER SISTER Dementia FATHER Heart disease MOTHER Social History Smoking Status: Never Smoker Alcohol Use: none Drug Use: none Marital Status: Housing Status: lives with family Occupation Status: retired Current/Historical Medications Scheduled Calcium Carbonate-Vitamin D (Calcium Carbonate/Vitamin), 1 TAB PO DAILY Famotidine (Pepcid), 10 MG PO DAILY PRN Hzyzddej-Kajkqgzicivm-Wttortlp (Artificial Tears), DIRECTED Ipratropium Weston (Nasal) (Ipratropium [place]on), 2 SPRAYS SHEILA BID Levothyroxine Sodium (Synthroid), 50 MCG PO DAILY Metoprolol Succinate (Toprol Xl), 50 MG PO DAILY Prednisone Tab (Prednisone), 10 MG PO DAILY Scheduled PRN Acetaminophen Tab (Tylenol), 325 MG PO DIRECTED PRN for Pain or Fever Albuterol Hfa (Ventolin Hfa), 2 PUFFS INH Q6H PRN for SOB/Wheezing Albuterol Sulf (Proventil 0.083% 2.5MG/3ML), 2.5 MG INH Q4H PRN for SOB/Wheezing Ipratropium [place] (Atrovent 0.02% Soln), 1 VIAL INH Q4H PRN for SOB/Wheezing Lactic Acid (Ammonium Lactate Cream 12%), 1 APPLN TOP BID PRN for DRYNESS Triamcinolone Acet (Aristocort 0.1%), 1 APPLN EXT BID PRN for RASH Allergies Coded Allergies: Sulfamethoxazole w/Trimethoprim (Unverified Allergy, Severe, edema face/ lips/tongue, 09/26/16) Latex1 -Allergic Contact Dermititis (Unverified Allergy, Mild, LOCAL SKIN REACTION, 09/26/16) Niacin (Unverified Allergy, Mild, RASH, 09/26/16) Naproxen (Unverified Adverse Reaction, Intermediate, BURNING STOMACH, 09/26) Physical Exam Vital Signs Date Time Temp Pulse Resp B/P (MAP) Pulse Ox O2 Delivery O2 Flow Rate FiO2 12/11/16 07:47 108 12/11/16 07:26 110 15 99 Nasal Cannula 2.0 12/11/16 07:11 113 19 84 12/11/16 07:01 145/81 12/11/16 06:56 108 16 100 12/11/16 06:41 111 21 100 12/11/16 06:36 109 16 100 12/11/16 06:06 110 17 100 12/11/16 06:01 150/81 12/11/16 05:45 116 13 92 12/11/16 05:24 116 12/11/16 05:23 37.7 119 18 172/97 94 Room Air 12/11/16 05:19 172/97 Physical Exam GENERAL: Patient is anxious appearing and in moderate distress. Warm to touch. HEENT: No acute trauma, normocephalic atraumatic, mucous membranes moist, no nasal congestion, no scleral icterus. NECK: No stridor, no adenopathy, no meningismus, trachea is midline. LUNGS: No dyspnea. Clear to auscultation and equal bilaterally. No wheeze, no rhonchi. HEART: Tachycardic and regular rhythm. No murmurs, rubs, gallops appreciated. ABDOMEN: Soft, bowel sounds positive, no masses appreciated, no peritonitis. Moderate tenderness to palpation over the left lower quadrant. Mild suprapubic tenderness to palpation. BACK: No midline tenderness, no CVA tenderness EXTREMITIES: Normal motion all extremities, no cyanosis, no edema. NEUROLOGIC: Alert and oriented, no acute motor or sensory deficits, no focal weakness, cranial nerves grossly intact. SKIN: No rash, no jaundice, no diaphoresis. Medical Decision & Procedures ER Provider Diagnostic Interpretation: See Chart for full radiologist read: Acute diverticulitis without perforation nor abscess. Gallstones. Laboratory Results 12/11/16 04:50 Red Blood Count 4.30, Mean Corpuscular Volume 94.9, Mean Corpuscular Hemoglobin 32.3, Mean Corpuscular Hemoglobin Concent 34.1, Mean Platelet Volume 10.1, Neutrophils (%) (Auto) 79.0, Lymphocytes (%) (Auto) 10.2, Monocytes (%) (Auto) 10.2, Eosinophils (%) (Auto) 0.3, Basophils (%) (Auto) 0.1, Neutrophils # (Auto ) 11.87, Lymphocytes # (Auto) 1.54, Monocytes # (Auto) 1.54, Eosinophils # (Auto ) 0.04, Basophils # (Auto) 0.02 12/11/16 04:50 Test 12/11/16 04:50 12/11/16 05:51 12/11/16 06:04 White Blood Count 15.04 K/uL (4.8-10.8) Red Blood Count 4.30 M/uL (4.2-5.4) Hemoglobin 13.9 g/dL (12.0-16.0) Hematocrit 40.8 % (37-47) Mean Corpuscular Volume 94.9 fL (80-100) Mean Corpuscular Hemoglobin 32.3 pg (25-34) Mean Corpuscular Hemoglobin Concent 34.1 g/dl (32-36) Platelet Count 248 K/uL (130-400) Mean Platelet Volume 10.1 fL (7.4-10.4) Neutrophils (%) (Auto) 79.0 % Lymphocytes (%) (Auto) 10.2 % Monocytes (%) (Auto) 10.2 % Eosinophils (%) (Auto) 0.3 % Basophils (%) (Auto) 0.1 % Neutrophils # (Auto) 11.87 K/uL (1.4-6.5) Lymphocytes # (Auto) 1.54 K/uL (1.2-3.4) Monocytes # (Auto) 1.54 K/uL (0.11-0.59) Eosinophils # (Auto) 0.04 K/uL (0-0.5) Basophils # (Auto) 0.02 K/uL (0-0.2) RDW Standard Deviation 43.0 fL (36.4-46.3) RDW Coefficient of Variation 12.5 % (11.5-14.5) Immature Granulocyte % (Auto) 0.2 % Immature Granulocyte # (Auto) 0.03 K/uL (0.00-0.02) Nucleated RBC Absolute Count (auto) 0.00 K/uL (0-0) Nucleated Red Blood Cells % 0.0 % Est Creatinine Clear Calc Drug Dose 57.4 ml/min Estimated GFR () 74.5 Estimated GFR (Non- 64.3 BUN/Creatinine Ratio 17.5 (10-20) Calcium Level 8.7 mg/dl (8.5-10.1) Total Bilirubin 0.7 mg/dl (0.2-1) Direct Bilirubin 0.1 mg/dl (0-0.2) Aspartate Amino Transf (AST/SGOT) 21 U/L (15-37) Alanine Aminotransferase (ALT/SGPT) 25 U/L (12-78) Alkaline Phosphatase 76 U/L (45-117) Troponin I 0.017 ng/ml (0-0.045) Total Protein 7.6 gm/dl (6.4-8.2) Albumin 3.4 gm/dl (3.4-5.0) Lipase 306 U/L (73-393) Bedside Lactic Acid Venous 1.25 mmol/L (0.90-1.70) Bedside Hemoglobin 13.3 g/dl (12.0-16.0) Bedside Hematocrit 39 % (37-47) Bedside Sodium 133 mEq/L (135-144) Bedside Potassium 3.8 mEq/L (3.3-5.0) Bedside Chloride 92 mEq/L (101-112) Bedside Total CO2 28 mEq/l (24-31) Anion Gap 18.0 mmol/L (16-25) Bedside Blood Urea Nitrogen 16 mg/dl (7-18) Bedside Creatinine 0.9 mg/dl (0.6-1.3) Bedside Glucose (other) 160 mg/dl (70-99) Bedside Ionized Calcium (Heidy) 1.10 mmol/l (1.12-1.32) Laboratory results as reviewed by me. Medications Administered Medications (Trade) Dose Ordered Sig/Nataly Route Start Time Stop Time Status Last Admin Dose Admin Sodium Chloride 500 ml @ 999 mls/hr Q31M STAT IV 12/11/16 05:27 12/11/16 05:57 DC 12/11/16 05:27 999 MLS/HR Fentanyl Citrate (Fentanyl Inj) 50 mcg NOW STAT IV 12/11/16 05:27 12/11/16 05:29 DC 12/11/16 05:38 50 MCG Ondansetron HCl (Zofran Inj) 4 mg NOW STAT IV 12/11/16 05:27 12/11/16 05:29 DC 12/11/16 05:38 4 MG Sodium Chloride 1,000 ml @ 999 mls/hr Q1H1M STAT IV 12/11/16 06:17 12/11/16 07:17 DC 12/11/16 06:17 999 MLS/HR Piperacillin Sod/ Tazobactam Sod (Zosyn Iv) 4.5 gm NOW STAT IV 12/11/16 07:06 12/11/16 07:07 DC 12/11/16 07:29 4.5 GM ECG Indication: chest pain Rate (beats per minute): 117 Rhythm: sinus tachycardia Findings: ST depression (nonspecific throughout ), no ectopy, other (no STEMI) ED Course 0520: The patient was evaluated in room A9. A complete history and physical exam was performed. 0527: Ordered Zofran Inj 4 mg IV, Fentanyl Inj 50 mcg IV, Sodium Chloride 500 ml @ 999 mls/hr IV. Medical Decision Differential: Diverticulitis, PUD/Gastritis, Biliary Pathology, UTI, Pyelonephritis, Renal Colic, Bowel Obstruction, Aortic Pathology, Acute Coronary Syndrome, amongst other pathologies entertained. Pleasant yet clearly uncomfortable 81 yr old female arrives for evaluation of LLQ abdominal pain. Notes associated brief CP with SHOB earlier. No evidence of ACS on initial work-up and currently CP/SOB free. She is febrile, tachy, though not hypotensive nor altered. Given IV fentanyl with improvement in pain along with zofran for nausea. Started with initial 1 L (500ml EMS, 500ml us). WBC returns elevated. With 1st L in she was ordered 2nd as tolerated this well. HR improving and patient looking more comfortable. She was starting to have mild hypoxia on RA thus placed on NC O2. Suspect more narcotic related though some fluid overload could cause similar despite denying shob, thus we will hold on further fluid resus given improvement in HR and OK lactic acid with no hypotension. CT with acute diverticulitis. Started Zosyn as diverticulitis in sepsis patient. Will admit to hospitalist service for further evaluation and treatment. Medication Reconcilliation Current Medication List: was personally reviewed by me Blood Pressure Screening Patient's blood pressure: Elevated blood pressure monitored by hospitalist Impression Primary Impression: Acute diverticulitis Additional Impression: Sepsis Scribe Attestation The scribe's documentation has been prepared under my direction and personally reviewed by me in its entirety. I confirm that the note above accurately reflects all work, treatment, procedures, and medical decision making performed by me. Departure Information Referrals Marivel Yoon M.D. (PCP) Problem Qualifiers
[2016-12-11 06:01] LABS: BUN/CREATININE RATIO 17.5 (10-20); CALCIUM 8.7 mg/dl (8.5-10.1); CREATININE 0.86 mg/dl (0.60-1.20); POTASSIUM 3.9 mmol/L (3.5-5.1)
[2016-12-11] MEDS ORDERED: OPTIRAY 320 IV PRN (06:15)
[2016-12-11] MEDS ORDERED: SODIUM CHLORIDE 0.9% 1000ML 1,000 ML IV STA (06:17)
[2016-12-11 06:18] LABS: ISTAT CREATININE 0.9 mg/dl (0.6-1.3); ISTAT HEMOGLOBIN 13.3 g/dl (12.0-16.0); ISTAT IONIZED CALCIUM 1.1 mmol/l (1.12-1.32)
[2016-12-11] MEDS ORDERED: METO-217 PO (06:47)
[2016-12-11] MEDS ORDERED: PRED10TA PO (06:48)
--- NOTE | 2016-12-11 06:58 | DIAGNOSTIC IMAGING REPORT ---
ABD/PELVIS IV CONTRAST ONLY CT DOSE: 423.29 mGy.cm HISTORY: Pain fever, tachy, LLQ abdominal pain TECHNIQUE: Multiaxial CT images of the abdomen and pelvis were performed following the use of intravenous contrast. A dose lowering technique was utilized adhering to the principles of ALARA. COMPARISON STUDY: 09/14/2016 FINDINGS: Chronic bibasilar interstitial lung change. This is unaltered from the prior exam. Fatty infiltration of liver. Gallstone filled gallbladder unchanged from the prior study. Kidneys show mild cortical scarring but are negative for hydronephrosis. Findings of acute proximal to mid sigmoid diverticulitis. Moderate pericolonic infiltrative change. This is seen to a lesser extent involving the distal descending colon. No evidence for abscess collection or obstruction. Small amount of reactive free fluid within the pelvic cul-de-sac. IMPRESSION: 1. Acute sigmoid and distal descending colonic diverticulitis. 2. Moderate pericolonic infiltrative change] 3. No evidence for abscess collection or obstruction. 4. Gallstones. The above report was generated using voice recognition software. It may contain grammatical, syntax or spelling errors. Electronically signed by: Franklin Randle M.D. 12/11/2016 6:57 AM Dictated Date/Time: 12/11/2016 6:51 AM
[2016-12-11] MEDS ORDERED: PIPERACILLIN/TAZOBACTAM 4.5 GM/100ML D5W IV STA (07:06)
--- NOTE | 2016-12-11 07:14 | DIAGNOSTIC IMAGING REPORT ---
SINGLE VIEW CHEST CLINICAL HISTORY: Atypical chest pain. FINDINGS: An AP, portable, upright chest radiograph is compared to study dated 09/26/2016 and correlated with chest CT dated 09/14/2016. The examination is degraded by portable technique and patient rotation. The heart is mildly enlarged and there is atherosclerotic calcification of the thoracic aorta. There is prominence of the central pulmonary vasculature. Chronic interstitial thickening is unchanged. Bibasilar atelectasis is observed. Apical scarring is noted. No large pleural effusion or pneumothorax is seen. The skeletal structures are osteopenic. The bony thorax is grossly intact. IMPRESSION: 1. Cardiac enlargement with prominence of the central pulmonary vessels. Correlate clinically for evidence of mild congestive failure. 2. Bibasilar atelectasis. No airspace consolidation is seen typical for pneumonia and there is no large pleural effusion. Electronically signed by: Alejandro Tom M.D. 12/11/2016 7:13 AM Dictated Date/Time: 12/11/2016 7:12 AM
[2016-12-11] MEDS ORDERED: ACETAMINOPHEN 500 MG TAB PO STA (07:29)
[2016-12-11 07:36] LABS: BASO % 0.1 %; BASO ABS # 0.02 K/uL (0-0.2); COMPLETE YES; EOS % 0.3 %; HEMATOCRIT 40.8 % (37-47); IG% 0.2 %; LYMPH % 10.2 %; LYMPH ABS # 1.54 K/uL (1.2-3.4); MEAN CELL VOLUME 94.9 fL (80-100); MEAN CORPUSCULAR HEMOGLOBIN 32.3 pg (25-34); MEAN CORPUSCULAR HGB CONC 34.1 g/dl (32-36); MEAN PLATELET VOLUME 10.1 fL (7.4-10.4); MONO % 10.2 %; PLATELET COUNT 248 K/uL (130-400); WHITE BLOOD COUNT 15.04 K/uL (4.8-10.8)
[2016-12-11 07:49] VITALS: BP 145/81; PULSE 107; O2SAT 100; Ht 177.8 cm; Wt 70.1 kg
[2016-12-11] MEDS ORDERED: GLUCOSE 40% GEL 15 GM TUBE PO PRN (08:30)
[2016-12-11] MEDS ORDERED: ONDANSETRON INJ 2 MG/ML 2 ML VIAL IV PRN (08:30)
[2016-12-11] MEDS ORDERED: GLUCOSE 10 TABS/TUBE PO PRN (08:30)
[2016-12-11] MEDS ORDERED: DEXTROSE 50% 50 ML SYR IV PRN (08:30)
[2016-12-11] MEDS ORDERED: GLUCAGON FOR INJ 1 MG VIAL SQ PRN (08:30)
[2016-12-11] MEDS ORDERED: ATOR-54 PO (08:45)
[2016-12-11] MEDS ORDERED: PIPERACILL/TAZOBAC CONSULT ACTIVE PRN (08:45)
[2016-12-11 09:00] VITALS: BP 136/79; PULSE 99; TEMP 36.9; O2SAT 99
[2016-12-11] MEDS ORDERED: ALBUTEROL 0.083% NEBU SOLN 3 ML VIAL INH PRN (09:00)
[2016-12-11] MEDS ORDERED: MoRPHine SULFATE 4 MG/ML 1 ML CARP\\VIAL IV PRN (09:00)
[2016-12-11] MEDS ORDERED: INFLUENZA VACCINE HIGH DOSE 65+ 0.5 ML SYR IM. ONE (09:30)
[2016-12-11] MEDS ORDERED: INFLUENZA ADMINISTRATION CHARGE ONE (09:30)
--- NOTE | 2016-12-11 09:30 | History and Physical ---
History & Physical Date & Time of Service: Dec 11, 2016 ~ 8:00 Chief Complaint: Abdominal Pain Primary Care Physician: Pilar Mohamud D.O. History of Present Illness 81 year old female who presents to the ED with abdominal pain. Patient reports pain began a couple of weeks ago but got acutely worse over the past two days. She reports the pain is located in the LLQ and radiates over to the suprapubic area. Pain is worse with movement. She reports the pain at its worst was #9/10 and at rest it is #5/10. She describes the pain as stabbing. Last night she had nausea and dry heaves. She reports intermittent diarrhea however that is chronic for her. It has not been worsening. She denies BRBPR or dark tarry stools. Last night she also reports chills and then feeling hot. She suspected she had a fever but did not take her temperature. She denies chest pain and shortness of breath. She reports some lightheadedness and dizziness but denies any syncopal event. She denies any urinary symptoms. In the ED, CT abd/pelvis is showing acute sigmoid and distal descending colon diverticulitis. WBC 15K, she is mildly tachycardic. She was given IVF, IV Zosyn, Zofran, and Fentanyl. Past Medical/Surgical History Medical Problems: (1) Autoimmune hepatitis Status: Chronic (2) Benign hypertension Status: Chronic (3) Central retinal vein occlusion of left eye Status: Chronic (4) Cholelithiasis Status: Chronic (5) CKD (chronic kidney disease), stage III Status: Chronic (6) Diverticulosis of colon Status: Chronic (7) Dyslipidemia Status: Chronic (8) GERD (gastroesophageal reflux disease) Status: Chronic (9) Hypertension Status: Chronic (10) Interstitial lung disease Status: Chronic (11) Osteoporosis Status: Chronic (12) Sjogrens syndrome Status: Chronic (13) Type II Diabetes Status: Chronic Surgical Problems: (1) Status post appendectomy Status: Chronic (2) Status post tubal ligation Status: Chronic Family History Bladder cancer BROTHER COPD (chronic obstructive pulmonary disease) BROTHER SISTER Dementia FATHER Heart disease MOTHER Social History Smoking Status: Never Smoker Alcohol Use: occasionally Housing status: lives with family Immunizations History of Influenza Vaccine: Yes Influenza Vaccine Date: Jan 05, 2016 History of Tetanus Vaccine?: Yes Tetanus Immunization Date: Apr 27, 2007 History of Pneumococcal: Yes Pneumococcal Date: Mar 13, 2016 Multi-Drug Resistant Organisms History of MDRO: No Allergies Coded Allergies: Sulfamethoxazole w/Trimethoprim (Unverified Allergy, Severe, edema face/ lips/tongue, 09/26/16) Latex1 -Allergic Contact Dermititis (Unverified Allergy, Mild, LOCAL SKIN REACTION, 09/26/16) Niacin (Unverified Allergy, Mild, RASH, 09/26/16) Naproxen (Unverified Adverse Reaction, Intermediate, BURNING STOMACH, 09/26) Home Medications Scheduled Atorvastatin (Lipitor), 1 TAB PO DAILY Calcium Carbonate-Vitamin D (Calcium Carbonate/Vitamin), 1 TAB PO DAILY Famotidine (Pepcid), 10 MG PO DAILY PRN Zhshrjcj-Mgggygplnxqz-Wuhxiwqa (Artificial Tears), DIRECTED Levothyroxine Sodium (Synthroid), 50 MCG PO DAILY Metoprolol Succinate (Toprol Xl), 50 MG PO DAILY Prednisone Tab (Prednisone), 10 MG PO DAILY Scheduled PRN Acetaminophen Tab (Tylenol), 325 MG PO DIRECTED PRN for Pain or Fever Albuterol Hfa (Ventolin Hfa), 2 PUFFS INH Q6H PRN for SOB/Wheezing Albuterol Sulf (Proventil 0.083% 2.5MG/3ML), 2.5 MG INH Q4H PRN for SOB/Wheezing Ipratropium [place] (Atrovent 0.02% Soln), 1 VIAL INH Q4H PRN for SOB/Wheezing Lactic Acid (Ammonium Lactate Cream 12%), 1 APPLN TOP BID PRN for DRYNESS Triamcinolone Acet (Aristocort 0.1%), 1 APPLN EXT BID PRN for RASH Review of Systems ROS per HPI, all other systems reviewed and negative Physical Exam Vital Signs Date Time Temp Pulse Resp B/P (MAP) Pulse Ox O2 Delivery O2 Flow Rate FiO2 12/11/16 08:31 108 19 12/11/16 08:16 114 22 12/11/16 08:01 105 23 148/80 100 12/11/16 07:49 107 18 145/81 100 Nasal Cannula 3.0 12/11/16 07:47 108 12/11/16 07:46 110 16 99 12/11/16 07:31 109 17 100 12/11/16 07:26 110 15 99 Nasal Cannula 2.0 12/11/16 07:11 113 19 84 12/11/16 07:01 145/81 12/11/16 06:56 108 16 100 12/11/16 06:41 111 21 100 12/11/16 06:36 109 16 100 12/11/16 06:06 110 17 100 12/11/16 06:01 150/81 12/11/16 05:45 116 13 92 12/11/16 05:24 116 12/11/16 05:23 37.7 119 18 172/97 94 Room Air 12/11/16 05:19 172/97 General Appearance: WD/WN, no apparent distress Head: normocephalic, atraumatic Eyes: normal inspection, EOMI, sclerae normal ENT: hearing grossly normal, + pertinent finding (dry mucous membranes) Neck: supple, no JVD, trachea midline Respiratory/Chest: no respiratory distress, + crackles (BL bases ) Cardiovascular: no edema, normal peripheral pulses, + tachycardia (regular rhythm) Abdomen/GI: normal bowel sounds, soft, + tenderness (LLQ) Extremities/Musculoskelatal: normal inspection, no calf tenderness, normal capillary refill Neurologic/Psych: no motor/sensory deficits, alert, normal mood/affect, oriented x 3 Skin: normal color, warm/dry Diagnostics Laboratory Results Results Past 24 Hours Test 12/11/16 04:50 12/11/16 05:51 12/11/16 06:04 12/11/16 08:23 Range/Units White Blood Count 15.04 4.8-10.8 K/uL Red Blood Count 4.30 4.2-5.4 M/uL Hemoglobin 13.9 12.0-16.0 g/dL Hematocrit 40.8 37-47 % Mean Corpuscular Volume 94.9 80-100 fL Mean Corpuscular Hemoglobin 32.3 25-34 pg Mean Corpuscular Hemoglobin Concent 34.1 32-36 g/dl Platelet Count 248 130-400 K/uL Mean Platelet Volume 10.1 7.4-10.4 fL Neutrophils (%) (Auto) 79.0 % Lymphocytes (%) (Auto) 10.2 % Monocytes (%) (Auto) 10.2 % Eosinophils (%) (Auto) 0.3 % Basophils (%) (Auto) 0.1 % Neutrophils # (Auto) 11.87 1.4-6.5 K/uL Lymphocytes # (Auto) 1.54 1.2-3.4 K/uL Monocytes # (Auto) 1.54 0.11-0.59 K/uL Eosinophils # (Auto) 0.04 0-0.5 K/uL Basophils # (Auto) 0.02 0-0.2 K/uL RDW Standard Deviation 43.0 36.4-46.3 fL RDW Coefficient of Variation 12.5 11.5-14.5 % Immature Granulocyte % (Auto) 0.2 % Immature Granulocyte # (Auto) 0.03 0.00-0.02 K/uL Nucleated RBC Absolute Count (auto) 0.00 0-0 K/uL Nucleated Red Blood Cells % 0.0 % Sodium Level 130 136-145 mmol/L Potassium Level 3.9 3.5-5.1 mmol/L Chloride Level 95 98-107 mmol/L Carbon Dioxide Level 26 21-32 mmol/L Anion Gap 9.0 18.0 16-25 mmol/L Blood Urea Nitrogen 15 7-18 mg/dl Creatinine 0.86 0.60-1.20 mg/dl Est Creatinine Clear Calc Drug Dose 57.4 ml/min Estimated GFR () 74.5 Estimated GFR (Non- 64.3 BUN/Creatinine Ratio 17.5 10-20 Random Glucose 167 70-99 mg/dl Calcium Level 8.7 8.5-10.1 mg/dl Total Bilirubin 0.7 0.2-1 mg/dl Direct Bilirubin 0.1 0-0.2 mg/dl Aspartate Amino Transf (AST/SGOT) 21 15-37 U/L Alanine Aminotransferase (ALT/SGPT) 25 12-78 U/L Alkaline Phosphatase 76 45-117 U/L Troponin I 0.017 0-0.045 ng/ml Total Protein 7.6 6.4-8.2 gm/dl Albumin 3.4 3.4-5.0 gm/dl Lipase 306 73-393 U/L Bedside Lactic Acid Venous 1.25 0.90-1.70 mmol/L Bedside Hemoglobin 13.3 12.0-16.0 g/dl Bedside Hematocrit 39 37-47 % Bedside Sodium 133 135-144 mEq/L Bedside Potassium 3.8 3.3-5.0 mEq/L Bedside Chloride 92 101-112 mEq/L Bedside Total CO2 28 24-31 mEq/l Bedside Blood Urea Nitrogen 16 7-18 mg/dl Bedside Creatinine 0.9 0.6-1.3 mg/dl Bedside Glucose (other) 160 70-99 mg/dl Bedside Ionized Calcium (Heidy) 1.10 1.12-1.32 mmol/l Lactic Acid Level 1.4 0.4-2.0 mmol/L Microbiology Results 12/11/16 Blood Culture, Received Pending 12/11/16 Blood Culture, Received Pending Diagnostic Radiology CXR IMPRESSION: 1. Cardiac enlargement with prominence of the central pulmonary vessels. Correlate clinically for evidence of mild congestive failure. 2. Bibasilar atelectasis. No airspace consolidation is seen typical for pneumonia and there is no large pleural effusion. CT ABD/PELVIS IMPRESSION: 1. Acute sigmoid and distal descending colonic diverticulitis. 2. Moderate pericolonic infiltrative change] 3. No evidence for abscess collection or obstruction. 4. Gallstones. Impression Assessment and Plan SEPSIS DUE TO ACUTE SIGMOID/DESCENDING COLON DIVERTICULITIS - admit to med/surg - patient presenting with LLQ abdominal pain x 2 weeks that acutely worsened over the past 2 days; CT in the ED showing acute sigmoid and descending colon diverticulitis - meets sepsis criteria - WBC 15K, tachycardic; BP stable, lactic acid WNL - s/p Zosyn in the ED, will continue with - IVF, pain and nausea control - stool studies - clear liquids for now - patient reports colonoscopy several years ago at [facility]; records unavailable; prior CT abd has shown diverticulosis - will need outpatient colonoscopy in 6-8 weeks (GI notified to contact patient for scheduling) HTN - BP controlled, continue metoprolol HX SJGREN'S,RHEUMATOID ARTHRITIS,AUTOIMMUNE HEPATITIS - continue steroids - LFTs WNL DM - diet controlled - hgb a1c 7.1 09/2016 - SSI while hospitalized HYPOTHYROIDISM - continue levothyroxine HLD - continue statin 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 DISPO - In my clinical judgment this beneficiary meets acute admission criteria, established by [facility], that includes being hospitalized through two midnights. - PT/OT consults placed ADDENDUM: Saw/examined the patient in room 387 She is resting comfortably in bed States she came in due to bad pain in the lower R abdomen Had some nausea with food - no vomiting. Denies diarrhea or GI bleeding Imagining in the ER suggests acute diverticulitis Meets sepsis criteria due to WBC and tachycardia Will continue IV Zosyn for now IVFs + clears colonoscopy in 6-8 weeks low fiber diet on discharge will monitor for a few days, and advance diet as pain improves Advanced Directives Existing Living Will: No Existing Power of Adaptive Physical Education Teacher: No VTE Prophylaxis VTE Risk Assessment Done? Y/N: Yes Risk Level: Moderate
[2016-12-11 09:53] LABS: INR 1.1 (0.9-1.1); PROTHROMBIN TIME (PATIENT) 11.4 SECONDS (9.0-12.0)
[2016-12-11] MEDS: ACETAMINOPHEN 325 MG TAB PO PRN (10:03)
[2016-12-11] MEDS: METOPROLOL SUCC 50MG EXT REL TAB PO SCH (10:04)
[2016-12-11] MEDS: LEVOTHYROXINE 50 MCG TAB PO SCH (10:04)
[2016-12-11] MEDS: CALCIUM 600MG + VIT D 400 IU TAB PO SCH (10:04)
[2016-12-11] MEDS: SODIUM CHLORIDE 0.9% 1000ML 1,000 ML IV SCH ×2 (10:04→18:18)
[2016-12-11] MEDS: ATORVASTATIN 20 MG TAB PO SCH ×2 (10:04→10:07)
[2016-12-11 10:42] LABS: URINE APPEARANCE CLEAR (CLEAR); URINE BILIRUBIN NEG (NEG); URINE COLOR YELLOW; URINE NITRITE NEG (NEG); URINE SPECIFIC GRAVITY 1.039 (1.000-1.030); UROBILINOGEN NEG (NEG); ZZUR CULT IF INDIC CLEAN CATCH NO
[2016-12-11 10:46] LABS: MANUAL MICROSCOPIC REQUIRED? NO; REVIEW REQ? NO
[2016-12-11] MEDS: PIPERACILL/TAZOBAC IV 3.375 GM in DEXTROSE 5% 100ML 100 ML IV SCH ×2 (12:08→19:49)
[2016-12-11] MEDS: ENOXAPARIN 40 MG/0.4 ML SYR SQ SCH (12:08)
[2016-12-11] MEDS: INSULIN ASPART 100 UNITS/ML 3 ML PEN SC SCH ×3 (13:11→21:00)
[2016-12-11 15:08] VITALS: BP 119/65; PULSE 88; TEMP 36.8; O2SAT 100
[2016-12-11 19:09] VITALS: O2SAT 100
[2016-12-11 19:25] VITALS: BP 140/80; PULSE 80; TEMP 36.6; O2SAT 100
[2016-12-11 23:25] VITALS: BP 155/87; PULSE 88; TEMP 37.2; O2SAT 100
[2016-12-12] VITALS (9 sets, daily range): BP systolic 138–186; BP diastolic 70–84; PULSE 80–87; TEMP 36.7–37.1; O2SAT 92–99
[2016-12-12] MEDS: SODIUM CHLORIDE 0.9% 1000ML 1,000 ML IV SCH ×2 (04:03→13:45)
[2016-12-12] MEDS: PIPERACILL/TAZOBAC IV 3.375 GM in DEXTROSE 5% 100ML 100 ML IV SCH ×3 (04:04→19:34)
[2016-12-12] MEDS: LEVOTHYROXINE 50 MCG TAB PO SCH (05:35)
[2016-12-12] MEDS: INSULIN ASPART 100 UNITS/ML 3 ML PEN SC SCH ×4 (08:00→20:37)
[2016-12-12 08:22] LABS: HEMATOCRIT 33.6 % (37-47); MEAN CELL VOLUME 97.7 fL (80-100); MEAN CORPUSCULAR HGB CONC 32.7 g/dl (32-36); MEAN PLATELET VOLUME 9.8 fL (7.4-10.4); PLATELET COUNT 161 K/uL (130-400); RED BLOOD COUNT 3.44 M/uL (4.2-5.4); WHITE BLOOD COUNT 8.67 K/uL (4.8-10.8)
[2016-12-12 08:26] LABS: CREATININE 0.79 mg/dl (0.60-1.20)
[2016-12-12 08:27] LABS: BUN/CREATININE RATIO 8.4 (10-20); CALCIUM 8.2 mg/dl (8.5-10.1); POTASSIUM 3.9 mmol/L (3.5-5.1)
[2016-12-12] MEDS: CALCIUM 600MG + VIT D 400 IU TAB PO SCH (08:41)
[2016-12-12] MEDS: METOPROLOL SUCC 50MG EXT REL TAB PO SCH (08:41)
[2016-12-12] MEDS: ENOXAPARIN 40 MG/0.4 ML SYR SQ SCH (08:41)
[2016-12-12] MEDS: ATORVASTATIN 20 MG TAB PO SCH (08:42)
--- NOTE | 2016-12-12 16:10 | Progress Note ---
Subjective Date of Service: Dec 12, 2016. Subjective Pt evaluation today including: conversation w/ patient, physical exam, lab review, review of studies, review of inpatient medication list Saw/examined the patient in room 387 Pain improving, abdominal cramping persists No fevers/chills, no diarrhea Tolerating clears Problem List Medical Problems: (1) Dehydration Status: Acute (2) Fever Status: Acute (3) Immunosuppression Status: Acute (4) Pneumonia Status: Acute (5) Viral URI Status: Acute Review of Systems Constitutional: No fever, No chills Respiratory: No shortness of breath Cardiac: No chest pain Abdomen: + pain, No nausea, No vomiting, No diarrhea, No constipation, No GI bleeding Medications Current Inpatient Medications Medications (Trade) Dose Ordered Sig/Nataly Route Start Time Stop Time Status Last Admin Dose Admin Ioversol (Optiray 320) 100 ml UD PRN IV 12/11/16 06:15 12/15/16 06:14 Enoxaparin Sodium (Lovenox Inj) 40 mg DAILY@1000 SQ 12/11/16 10:30 01/10/17 10:29 12/12/16 08:41 40 MG Acetaminophen (Tylenol Tab) 650 mg Q4H PRN PO 12/11/16 08:30 01/10/17 08:29 12/11/16 10:03 650 MG Ondansetron HCl (Zofran Inj) 4 mg Q6H PRN IV 12/11/16 08:30 01/10/17 08:29 Sodium Chloride 1,000 ml @ 100 mls/hr Q10H IV 12/11/16 08:30 01/10/17 08:29 12/12/16 13:45 100 MLS/HR Piperacillin Sod/ Tazobactam Sod (Consult) 1 ea UD PRN N/A 12/11/16 08:45 01/10/17 08:44 Insulin Aspart (novoLOG ASPART) SLIDING SCALE If C... ACHS SC 12/11/16 12:00 01/10/17 11:59 12/11/16 18:17 4 UNITS Glucose (Glucose 40% Gel) 15-30 GRAMS 15 GRAMS... UD PRN PO 12/11/16 08:30 01/10/17 08:29 Glucose (Glucose Chew Tab) 4-8 Tablets 4 Tabl... UD PRN PO 12/11/16 08:30 01/10/17 08:29 Dextrose (Dextrose 50% 50ML Syringe) 25-50ML OF 50% DW IV FOR... UD PRN IV 12/11/16 08:30 01/10/17 08:29 Glucagon (Glucagon Inj) 1 mg UD PRN SQ 12/11/16 08:30 01/10/17 08:29 Albuterol Sulfate (Ventolin 0.083% 2.5MG/3ML Neb) 2.5 mg Q4H PRN INH 12/11/16 09:00 01/10/17 08:59 Atorvastatin Calcium (Lipitor Tab) 20 mg DAILY PO 12/11/16 09:00 01/10/17 08:59 Levothyroxine Sodium (Synthroid Tab) 50 mcg DAILYBB PO 12/11/16 09:00 01/10/17 08:59 12/12/16 05:35 50 MCG Metoprolol Succinate (Toprol Xl Tab) 50 mg DAILY PO 12/11/16 09:00 01/10/17 08:59 12/12/16 08:41 50 MG Prednisone (PredniSONE TAB) 10 mg DAILY PO 12/11/16 09:00 01/10/17 08:59 12/12/16 08:41 10 MG Calcium/Vitamin D (Caltrate Plus Tab) 1 tab DAILY PO 12/11/16 09:00 01/10/17 08:59 12/12/16 08:41 1 TAB Piperacillin Sod/ Tazobactam Sod 3.375 gm/Dextrose 115 ml @ 28.75 mls/ hr Q8H IV 12/11/16 12:00 12/18/16 11:59 12/12/16 12:22 28.75 MLS/HR Morphine Sulfate (MoRPHine SULFATE INJ) 3 mg Q3H PRN IV 12/11/16 09:00 12/25/16 08:59 Objective Vital Signs Date Time Temp Pulse Resp B/P (MAP) Pulse Ox O2 Delivery O2 Flow Rate FiO2 12/12/16 15:50 36.9 80 17 166/74 (104) 92 Room Air 12/12/16 12:01 36.9 87 20 140/84 (102) 95 Room Air 12/12/16 09:37 97 Room Air 12/12/16 08:07 37.1 85 18 138/78 (98) 99 Nasal Cannula 2.0 12/12/16 08:00 97 Room Air 12/11/16 23:40 Nasal Cannula 2.0 12/11/16 23:25 37.2 88 16 155/87 (109) 100 Nasal Cannula 2.0 12/11/16 19:25 36.6 80 16 140/80 (100) 100 Nasal Cannula 4.0 12/11/16 19:09 100 Nasal Cannula 2.0 Physical Exam General Appearance: no apparent distress Respiratory/Chest: no respiratory distress, no accessory muscle use Abdomen: normal bowel sounds, soft, + tenderness Laboratory Results Last 24 Hours Test 12/11/16 17:06 12/11/16 21:03 12/12/16 07:24 12/12/16 08:22 Bedside Glucose 185 mg/dl 116 mg/dl 86 mg/dl White Blood Count 8.67 K/uL Red Blood Count 3.44 M/uL Hemoglobin 11.0 g/dL Hematocrit 33.6 % Mean Corpuscular Volume 97.7 fL Mean Corpuscular Hemoglobin 32.0 pg Mean Corpuscular Hemoglobin Concent 32.7 g/dl RDW Standard Deviation 45.5 fL RDW Coefficient of Variation 12.7 % Platelet Count 161 K/uL Mean Platelet Volume 9.8 fL Sodium Level 140 mmol/L Potassium Level 3.9 mmol/L Chloride Level 105 mmol/L Carbon Dioxide Level 30 mmol/L Anion Gap 4.0 mmol/L Blood Urea Nitrogen 7 mg/dl Creatinine 0.79 mg/dl Est Creatinine Clear Calc Drug Dose 62.4 ml/min Estimated GFR () 82.5 Estimated GFR (Non- 71.2 BUN/Creatinine Ratio 8.4 Random Glucose 84 mg/dl Calcium Level 8.2 mg/dl Assessment and Plan SEPSIS DUE TO ACUTE SIGMOID/DESCENDING COLON DIVERTICULITIS 12/12 continue Zosyn continue IVFs and clears will likely advance diet in AM (12/13) outpatient colonoscopy in 6-8 weeks 12/11 - admit to med/surg - patient presenting with LLQ abdominal pain x 2 weeks that acutely worsened over the past 2 days; CT in the ED showing acute sigmoid and descending colon diverticulitis - meets sepsis criteria - WBC 15K, tachycardic; BP stable, lactic acid WNL - s/p Zosyn in the ED, will continue with - IVF, pain and nausea control - stool studies - clear liquids for now - patient reports colonoscopy several years ago at [facility]; records unavailable; prior CT abd has shown diverticulosis - will need outpatient colonoscopy in 6-8 weeks (GI notified to contact patient for scheduling) HTN - BP controlled, continue metoprolol HX SJGREN'S,RHEUMATOID ARTHRITIS,AUTOIMMUNE HEPATITIS - continue steroids - LFTs WNL DM - diet controlled - hgb a1c 7.1 09/2016 - SSI while hospitalized HYPOTHYROIDISM - continue levothyroxine HLD - continue statin 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 DISPO - In my clinical judgment this beneficiary meets acute admission criteria, established by [facility], that includes being hospitalized through two midnights. - PT/OT consults placed
[2016-12-12] MEDS: ACETAMINOPHEN 325 MG TAB PO PRN (20:06)
[2016-12-12] MEDS: CLONIDINE HCL 0.1 MG TAB PO PRN (20:58)
[2016-12-13] VITALS (8 sets, daily range): BP systolic 147–184; BP diastolic 68–92; PULSE 76–89; TEMP 36.9–37.2; O2SAT 93–95
[2016-12-13] MEDS: SODIUM CHLORIDE 0.9% 1000ML 1,000 ML IV SCH ×2 (00:01→09:44)
[2016-12-13] MEDS: PIPERACILL/TAZOBAC IV 3.375 GM in DEXTROSE 5% 100ML 100 ML IV SCH ×3 (03:59→19:59)
[2016-12-13] MEDS: LEVOTHYROXINE 50 MCG TAB PO SCH (06:19)
[2016-12-13 07:28] LABS: MEAN CELL VOLUME 97.2 fL (80-100); MEAN CORPUSCULAR HEMOGLOBIN 32.6 pg (25-34); MEAN CORPUSCULAR HGB CONC 33.5 g/dl (32-36); MEAN PLATELET VOLUME 9.6 fL (7.4-10.4); PLATELET COUNT 170 K/uL (130-400); RED BLOOD COUNT 3.19 M/uL (4.2-5.4); WHITE BLOOD COUNT 6.42 K/uL (4.8-10.8)
[2016-12-13 07:54] LABS: BUN/CREATININE RATIO 6.8 (10-20); CALCIUM 8.4 mg/dl (8.5-10.1); CREATININE 0.72 mg/dl (0.60-1.20); POTASSIUM 3.5 mmol/L (3.5-5.1)
[2016-12-13] MEDS: ATORVASTATIN 20 MG TAB PO SCH (08:33)
[2016-12-13] MEDS: CALCIUM 600MG + VIT D 400 IU TAB PO SCH (08:33)
[2016-12-13] MEDS: INSULIN ASPART 100 UNITS/ML 3 ML PEN SC SCH ×4 (08:34→21:00)
[2016-12-13] MEDS: METOPROLOL SUCC 50MG EXT REL TAB PO SCH (08:34)
[2016-12-13] MEDS: ENOXAPARIN 40 MG/0.4 ML SYR SQ SCH (09:41)
[2016-12-13] MEDS: LACTOBACILLUS ACIDOPHILUS (FLORANEX) TAB PO SCH (12:41)
--- NOTE | 2016-12-13 12:44 | Progress Note ---
Subjective Date of Service: Dec 13, 2016. Subjective Pt evaluation today including: conversation w/ patient, physical exam, lab review, review of studies, review of inpatient medication list Saw/examined the patient in room 387 Doing well, mild crampy lower abdominal pain persists - but improving patient had a bowel movement; no GI bleeding Problem List Medical Problems: (1) Dehydration Status: Acute (2) Fever Status: Acute (3) Immunosuppression Status: Acute (4) Pneumonia Status: Acute (5) Viral URI Status: Acute Review of Systems Constitutional: No fever, No chills Respiratory: No shortness of breath Cardiac: No chest pain Abdomen: + pain, No nausea, No vomiting, No diarrhea, No constipation, No GI bleeding Medications Current Inpatient Medications Medications (Trade) Dose Ordered Sig/Nataly Route Start Time Stop Time Status Last Admin Dose Admin Ioversol (Optiray 320) 100 ml UD PRN IV 12/11/16 06:15 12/15/16 06:14 Enoxaparin Sodium (Lovenox Inj) 40 mg DAILY@1000 SQ 12/11/16 10:30 01/10/17 10:29 12/13/16 09:41 40 MG Acetaminophen (Tylenol Tab) 650 mg Q4H PRN PO 12/11/16 08:30 01/10/17 08:29 12/12/16 20:06 650 MG Ondansetron HCl (Zofran Inj) 4 mg Q6H PRN IV 12/11/16 08:30 01/10/17 08:29 Piperacillin Sod/ Tazobactam Sod (Consult) 1 ea UD PRN N/A 12/11/16 08:45 01/10/17 08:44 Insulin Aspart (novoLOG ASPART) SLIDING SCALE If C... ACHS SC 12/11/16 12:00 01/10/17 11:59 12/11/16 18:17 4 UNITS Glucose (Glucose 40% Gel) 15-30 GRAMS 15 GRAMS... UD PRN PO 12/11/16 08:30 01/10/17 08:29 Glucose (Glucose Chew Tab) 4-8 Tablets 4 Tabl... UD PRN PO 12/11/16 08:30 01/10/17 08:29 Dextrose (Dextrose 50% 50ML Syringe) 25-50ML OF 50% DW IV FOR... UD PRN IV 12/11/16 08:30 01/10/17 08:29 Glucagon (Glucagon Inj) 1 mg UD PRN SQ 12/11/16 08:30 01/10/17 08:29 Albuterol Sulfate (Ventolin 0.083% 2.5MG/3ML Neb) 2.5 mg Q4H PRN INH 12/11/16 09:00 01/10/17 08:59 Atorvastatin Calcium (Lipitor Tab) 20 mg DAILY PO 12/11/16 09:00 01/10/17 08:59 Levothyroxine Sodium (Synthroid Tab) 50 mcg DAILYBB PO 12/11/16 09:00 01/10/17 08:59 12/13/16 06:19 50 MCG Metoprolol Succinate (Toprol Xl Tab) 50 mg DAILY PO 12/11/16 09:00 01/10/17 08:59 12/13/16 08:34 50 MG Prednisone (PredniSONE TAB) 10 mg DAILY PO 12/11/16 09:00 01/10/17 08:59 12/13/16 08:34 10 MG Calcium/Vitamin D (Caltrate Plus Tab) 1 tab DAILY PO 12/11/16 09:00 01/10/17 08:59 12/13/16 08:33 1 TAB Piperacillin Sod/ Tazobactam Sod 3.375 gm/Dextrose 115 ml @ 28.75 mls/ hr Q8H IV 12/11/16 12:00 12/18/16 11:59 12/13/16 11:54 28.75 MLS/HR Morphine Sulfate (MoRPHine SULFATE INJ) 3 mg Q3H PRN IV 12/11/16 09:00 12/25/16 08:59 Clonidine HCl (Catapres Tab) 0.1 mg Q4 PRN PO 12/12/16 20:15 01/11/17 20:14 12/12/16 20:58 0.1 MG Lactobacillus Acidophilus (Floranex Tab) 4 tab DAILY PO 12/13/16 11:30 01/12/17 11:29 Objective Vital Signs Date Time Temp Pulse Resp B/P (MAP) Pulse Ox O2 Delivery O2 Flow Rate FiO2 12/13/16 08:30 Room Air 12/13/16 07:47 37.2 80 18 147/68 (94) 93 Room Air 12/13/16 00:00 Room Air 12/12/16 22:55 36.7 81 18 149/73 (98) 97 Room Air 12/12/16 21:35 154/70 (98) 12/12/16 20:14 186/84 (118) 12/12/16 16:38 153/78 (103) 12/12/16 15:50 36.9 80 17 166/74 (104) 92 Room Air 12/12/16 15:20 Room Air Physical Exam General Appearance: no apparent distress Respiratory/Chest: chest non-tender, lungs clear, normal breath sounds, no respiratory distress, no accessory muscle use Cardiovascular: regular rate, rhythm Abdomen: normal bowel sounds, soft, + tenderness (mild tenderness lower quadrants) Extremities: normal inspection, no pedal edema Laboratory Results Last 24 Hours Test 12/12/16 17:04 12/12/16 20:35 12/13/16 06:48 12/13/16 07:48 Bedside Glucose 127 mg/dl 113 mg/dl 89 mg/dl White Blood Count 6.42 K/uL Red Blood Count 3.19 M/uL Hemoglobin 10.4 g/dL Hematocrit 31.0 % Mean Corpuscular Volume 97.2 fL Mean Corpuscular Hemoglobin 32.6 pg Mean Corpuscular Hemoglobin Concent 33.5 g/dl RDW Standard Deviation 43.9 fL RDW Coefficient of Variation 12.3 % Platelet Count 170 K/uL Mean Platelet Volume 9.6 fL Sodium Level 140 mmol/L Potassium Level 3.5 mmol/L Chloride Level 106 mmol/L Carbon Dioxide Level 29 mmol/L Anion Gap 5.0 mmol/L Blood Urea Nitrogen 5 mg/dl Creatinine 0.72 mg/dl Est Creatinine Clear Calc Drug Dose 68.5 ml/min Estimated GFR () 92.3 Estimated GFR (Non- 79.7 BUN/Creatinine Ratio 6.8 Random Glucose 82 mg/dl Calcium Level 8.4 mg/dl Test 12/13/16 12:02 Bedside Glucose 147 mg/dl Assessment and Plan SEPSIS DUE TO ACUTE SIGMOID/DESCENDING COLON DIVERTICULITIS 12/13 continue IV Zosyn advance to full liquid stop IVFs monitor clinical response tomorrow outpatient colonoscopy in 6-8 weeks 12/12 continue Zosyn continue IVFs and clears will likely advance diet in AM (12/13) outpatient colonoscopy in 6-8 weeks 12/11 - admit to med/surg - patient presenting with LLQ abdominal pain x 2 weeks that acutely worsened over the past 2 days; CT in the ED showing acute sigmoid and descending colon diverticulitis - meets sepsis criteria - WBC 15K, tachycardic; BP stable, lactic acid WNL - s/p Zosyn in the ED, will continue with - IVF, pain and nausea control - stool studies - clear liquids for now - patient reports colonoscopy several years ago at [facility]; records unavailable; prior CT abd has shown diverticulosis - will need outpatient colonoscopy in 6-8 weeks (GI notified to contact patient for scheduling) HTN uncontrolled overnight; possibly secondary to pain and IVFs stopped the fluids and clonidine PRN was added HX SJGREN'S,RHEUMATOID ARTHRITIS,AUTOIMMUNE HEPATITIS - continue steroids - LFTs WNL DM - diet controlled - hgb a1c 7.1 09/2016 - SSI while hospitalized HYPOTHYROIDISM - continue levothyroxine HLD - continue statin 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 DISPO - In my clinical judgment this beneficiary meets acute admission criteria, established by CMS, that includes being hospitalized through two midnights. - PT/OT consults placed
[2016-12-13] MEDS: CLONIDINE HCL 0.1 MG TAB PO PRN (16:00)
[2016-12-13] MEDS: ACETAMINOPHEN 325 MG TAB PO PRN (21:49)
[2016-12-14] MEDS: PIPERACILL/TAZOBAC IV 3.375 GM in DEXTROSE 5% 100ML 100 ML IV SCH (03:43)
[2016-12-14] MEDS: LEVOTHYROXINE 50 MCG TAB PO SCH (06:13)
[2016-12-14 06:57] LABS: HEMATOCRIT 31.6 % (37-47); MEAN CORPUSCULAR HEMOGLOBIN 32.8 pg (25-34); MEAN CORPUSCULAR HGB CONC 34.2 g/dl (32-36); MEAN PLATELET VOLUME 9.5 fL (7.4-10.4); PLATELET COUNT 185 K/uL (130-400); RED BLOOD COUNT 3.29 M/uL (4.2-5.4); WHITE BLOOD COUNT 5.78 K/uL (4.8-10.8)
[2016-12-14 07:28] LABS: BUN/CREATININE RATIO 4.5 (10-20); CALCIUM 8.5 mg/dl (8.5-10.1); CREATININE 0.8 mg/dl (0.60-1.20); POTASSIUM 3.5 mmol/L (3.5-5.1)
[2016-12-14 07:30] VITALS: BP 173/95; PULSE 73; TEMP 36.8; O2SAT 99
[2016-12-14] MEDS: CALCIUM 600MG + VIT D 400 IU TAB PO SCH (08:41)
[2016-12-14] MEDS: METOPROLOL SUCC 50MG EXT REL TAB PO SCH (08:42)
[2016-12-14] MEDS: LACTOBACILLUS ACIDOPHILUS (FLORANEX) TAB PO SCH (08:42)
[2016-12-14] MEDS: ATORVASTATIN 20 MG TAB PO SCH (08:42)
[2016-12-14] MEDS: INSULIN ASPART 100 UNITS/ML 3 ML PEN SC SCH ×4 (08:47→21:00)
[2016-12-14] MEDS ORDERED: CIPROFLOXACIN 500 MG TAB PO ONE (09:30)
--- NOTE | 2016-12-14 11:25 | Progress Note ---
Subjective Date of Service: Dec 14, 2016. Subjective Pt evaluation today including: conversation w/ patient, physical exam, lab review, review of studies, review of inpatient medication list Saw/examined the patient in room 387 No problems/issues to note today; abdominal pain has subsided; no fevers/chills Problem List Medical Problems: (1) Dehydration Status: Acute (2) Fever Status: Acute (3) Immunosuppression Status: Acute (4) Pneumonia Status: Acute (5) Viral URI Status: Acute Review of Systems Constitutional: No fever, No chills Abdomen: No pain, No nausea, No vomiting, No diarrhea, No constipation, No GI bleeding Medications Current Inpatient Medications Medications (Trade) Dose Ordered Sig/Nataly Route Start Time Stop Time Status Last Admin Dose Admin Ioversol (Optiray 320) 100 ml UD PRN IV 12/11/16 06:15 12/15/16 06:14 Enoxaparin Sodium (Lovenox Inj) 40 mg DAILY@1000 SQ 12/11/16 10:30 01/10/17 10:29 12/13/16 09:41 40 MG Acetaminophen (Tylenol Tab) 650 mg Q4H PRN PO 12/11/16 08:30 01/10/17 08:29 12/13/16 21:49 650 MG Ondansetron HCl (Zofran Inj) 4 mg Q6H PRN IV 12/11/16 08:30 01/10/17 08:29 Insulin Aspart (novoLOG ASPART) SLIDING SCALE If C... ACHS SC 12/11/16 12:00 01/10/17 11:59 12/14/16 08:47 1 UNITS Glucose (Glucose 40% Gel) 15-30 GRAMS 15 GRAMS... UD PRN PO 12/11/16 08:30 01/10/17 08:29 Glucose (Glucose Chew Tab) 4-8 Tablets 4 Tabl... UD PRN PO 12/11/16 08:30 01/10/17 08:29 Dextrose (Dextrose 50% 50ML Syringe) 25-50ML OF 50% DW IV FOR... UD PRN IV 12/11/16 08:30 01/10/17 08:29 Glucagon (Glucagon Inj) 1 mg UD PRN SQ 12/11/16 08:30 01/10/17 08:29 Albuterol Sulfate (Ventolin 0.083% 2.5MG/3ML Neb) 2.5 mg Q4H PRN INH 12/11/16 09:00 01/10/17 08:59 Atorvastatin Calcium (Lipitor Tab) 20 mg DAILY PO 12/11/16 09:00 01/10/17 08:59 Levothyroxine Sodium (Synthroid Tab) 50 mcg DAILYBB PO 12/11/16 09:00 01/10/17 08:59 12/14/16 06:13 50 MCG Metoprolol Succinate (Toprol Xl Tab) 50 mg DAILY PO 12/11/16 09:00 01/10/17 08:59 12/14/16 08:42 50 MG Prednisone (PredniSONE TAB) 10 mg DAILY PO 12/11/16 09:00 01/10/17 08:59 12/14/16 08:42 10 MG Calcium/Vitamin D (Caltrate Plus Tab) 1 tab DAILY PO 12/11/16 09:00 01/10/17 08:59 12/14/16 08:41 1 TAB Morphine Sulfate (MoRPHine SULFATE INJ) 3 mg Q3H PRN IV 12/11/16 09:00 12/25/16 08:59 Clonidine HCl (Catapres Tab) 0.1 mg Q4 PRN PO 12/12/16 20:15 01/11/17 20:14 12/13/16 16:00 0.1 MG Lactobacillus Acidophilus (Floranex Tab) 4 tab DAILY PO 12/13/16 11:30 01/12/17 11:29 12/14/16 08:42 4 TAB Ciprofloxacin (Cipro Tab) 500 mg BID@0700,1900 PO 12/14/16 19:00 12/18/16 11:59 Metronidazole (Flagyl Tab) 500 mg TID PO 12/14/16 14:00 12/18/16 11:59 Objective Vital Signs Date Time Temp Pulse Resp B/P (MAP) Pulse Ox O2 Delivery O2 Flow Rate FiO2 12/14/16 07:45 Room Air 12/14/16 07:30 36.8 73 16 173/95 (121) 99 Nasal Cannula 2.0 12/13/16 23:55 37.0 86 16 149/76 (100) 93 Nasal Cannula 2.0 12/13/16 23:45 93 Nasal Cannula 2.0 12/13/16 19:37 36.9 77 20 158/83 (108) 95 Room Air 12/13/16 17:04 76 167/80 (109) 12/13/16 16:54 170/81 (110) 12/13/16 16:00 Room Air 12/13/16 15:55 184/92 (122) 12/13/16 15:23 36.9 89 18 174/85 (114) 93 Room Air Physical Exam General Appearance: no apparent distress Respiratory/Chest: no respiratory distress, no accessory muscle use Cardiovascular: regular rate, rhythm, no edema, no gallop, no JVD, no murmur Abdomen: normal bowel sounds, non tender, soft Laboratory Results Last 24 Hours Test 12/13/16 12:02 12/13/16 16:52 12/13/16 20:42 12/14/16 06:42 Bedside Glucose 147 mg/dl 154 mg/dl 112 mg/dl White Blood Count 5.78 K/uL Red Blood Count 3.29 M/uL Hemoglobin 10.8 g/dL Hematocrit 31.6 % Mean Corpuscular Volume 96.0 fL Mean Corpuscular Hemoglobin 32.8 pg Mean Corpuscular Hemoglobin Concent 34.2 g/dl RDW Standard Deviation 42.8 fL RDW Coefficient of Variation 12.1 % Platelet Count 185 K/uL Mean Platelet Volume 9.5 fL Sodium Level 141 mmol/L Potassium Level 3.5 mmol/L Chloride Level 104 mmol/L Carbon Dioxide Level 31 mmol/L Anion Gap 6.0 mmol/L Blood Urea Nitrogen 4 mg/dl Creatinine 0.80 mg/dl Est Creatinine Clear Calc Drug Dose 61.7 ml/min Estimated GFR () 81.3 Estimated GFR (Non- 70.1 BUN/Creatinine Ratio 4.5 Random Glucose 90 mg/dl Calcium Level 8.5 mg/dl Test 12/14/16 07:50 Bedside Glucose 88 mg/dl Assessment and Plan SEPSIS DUE TO ACUTE SIGMOID/DESCENDING COLON DIVERTICULITIS 12/14 switched to Cipro + Flagyl will advance diet to regular diet today (DM2, low fiber) if tolerating well, plan to d/c home on 12/15 12/13 continue IV Zosyn advance to full liquid stop IVFs monitor clinical response tomorrow outpatient colonoscopy in 6-8 weeks 12/12 continue Zosyn continue IVFs and clears will likely advance diet in AM (12/13) outpatient colonoscopy in 6-8 weeks 12/11 - admit to med/surg - patient presenting with LLQ abdominal pain x 2 weeks that acutely worsened over the past 2 days; CT in the ED showing acute sigmoid and descending colon diverticulitis - meets sepsis criteria - WBC 15K, tachycardic; BP stable, lactic acid WNL - s/p Zosyn in the ED, will continue with - IVF, pain and nausea control - stool studies - clear liquids for now - patient reports colonoscopy several years ago at [facility]; records unavailable; prior CT abd has shown diverticulosis - will need outpatient colonoscopy in 6-8 weeks (GI notified to contact patient for scheduling) HTN uncontrolled overnight; possibly secondary to pain and IVFs stopped the fluids and clonidine PRN was added HX SJGREN'S,RHEUMATOID ARTHRITIS,AUTOIMMUNE HEPATITIS - continue steroids - LFTs WNL DM - diet controlled - hgb a1c 7.1 09/2016 - SSI while hospitalized HYPOTHYROIDISM - continue levothyroxine HLD - continue statin 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 DISPO - In my clinical judgment this beneficiary meets acute admission criteria, established by CMS, that includes being hospitalized through two midnights. - PT/OT consults placed
[2016-12-14] MEDS ORDERED: AMLODIPINE BESYLATE 5 MG TAB PO ONE (11:30)
[2016-12-14] MEDS: METRONIDAZOLE 500 MG TAB PO SCH ×2 (13:04→21:53)
[2016-12-14] MEDS: ENOXAPARIN 40 MG/0.4 ML SYR SQ SCH (13:05)
[2016-12-14 15:32] VITALS: BP 158/87; PULSE 85; TEMP 37.8; O2SAT 93
[2016-12-14] MEDS ORDERED: ALUMINUM/MAGNESIUM SUSP 30 ML UDC PO PRN (15:45)
[2016-12-14] MEDS ORDERED: CALCIUM CARBONATE 500 MG CHEWABLE PO PRN (15:45)
[2016-12-14] MEDS: CIPROFLOXACIN 500 MG TAB PO SCH (19:26)
[2016-12-14 22:56] VITALS: BP 158/80; PULSE 85; TEMP 37; O2SAT 93
[2016-12-15] MEDS: ACETAMINOPHEN 325 MG TAB PO PRN (00:55)
[2016-12-15] MEDS: LEVOTHYROXINE 50 MCG TAB PO SCH (05:58)
[2016-12-15 06:18] LABS: HEMATOCRIT 36.6 % (37-47); MEAN CELL VOLUME 94.8 fL (80-100); MEAN CORPUSCULAR HEMOGLOBIN 32.4 pg (25-34); MEAN CORPUSCULAR HGB CONC 34.2 g/dl (32-36); MEAN PLATELET VOLUME 9.6 fL (7.4-10.4); PLATELET COUNT 220 K/uL (130-400); RED BLOOD COUNT 3.86 M/uL (4.2-5.4); WHITE BLOOD COUNT 5.51 K/uL (4.8-10.8)
[2016-12-15] MEDS: CIPROFLOXACIN 500 MG TAB PO SCH (06:24)
[2016-12-15 06:49] LABS: BUN/CREATININE RATIO 6.3 (10-20); CALCIUM 9.3 mg/dl (8.5-10.1); CREATININE 0.77 mg/dl (0.60-1.20); POTASSIUM 3.7 mmol/L (3.5-5.1)
[2016-12-15 07:00] VITALS: BP 161/84; PULSE 78; TEMP 36.8; O2SAT 96
[2016-12-15] MEDS: METOPROLOL SUCC 50MG EXT REL TAB PO SCH (07:42)
[2016-12-15] MEDS: ATORVASTATIN 20 MG TAB PO SCH (08:28)
[2016-12-15] MEDS: CALCIUM 600MG + VIT D 400 IU TAB PO SCH (08:28)
[2016-12-15] MEDS: LACTOBACILLUS ACIDOPHILUS (FLORANEX) TAB PO SCH (08:28)
[2016-12-15] MEDS ORDERED: AMOXICILLIN/CLAVULANATE TAB 875 MG TAB PO SCH (08:30)
[2016-12-15] MEDS: INSULIN ASPART 100 UNITS/ML 3 ML PEN SC SCH ×2 (08:32→12:43)
[2016-12-15 09:00] VITALS: BP 160/83; PULSE 97; O2SAT 95
[2016-12-15] MEDS: CLONIDINE HCL 0.1 MG TAB PO PRN (09:04)
[2016-12-15] MEDS: ENOXAPARIN 40 MG/0.4 ML SYR SQ SCH (09:35)
[2016-12-15] MEDS ORDERED: AMLODIPINE BESYLATE 5 MG TAB PO ONE (11:00)
[2016-12-15 11:11] VITALS: BP 142/82
[2016-12-15 13:02] VITALS: BP 151/82
--- NOTE | 2016-12-15 15:15 | Progress Note ---
Subjective Date of Service: Dec 15, 2016. Subjective Pt evaluation today including: conversation w/ patient, physical exam, lab review, review of studies, review of inpatient medication list Saw/examined the patient in room 387 She is doing well, abdominal pain resolved, no diarrhea, no nausea/vomiting, no fevers/chills Problem List Medical Problems: (1) Dehydration Status: Acute (2) Fever Status: Acute (3) Immunosuppression Status: Acute (4) Pneumonia Status: Acute (5) Viral URI Status: Acute Review of Systems Constitutional: No fever, No chills Respiratory: No shortness of breath Cardiac: No chest pain Abdomen: No pain, No nausea, No vomiting, No diarrhea, No constipation, No GI bleeding Heme: No abnormal bleeding/bruising Medications Current Inpatient Medications Medications (Trade) Dose Ordered Sig/Nataly Route Start Time Stop Time Status Last Admin Dose Admin Enoxaparin Sodium (Lovenox Inj) 40 mg DAILY@1000 SQ 12/11/16 10:30 01/10/17 10:29 12/15/16 09:35 40 MG Acetaminophen (Tylenol Tab) 650 mg Q4H PRN PO 12/11/16 08:30 01/10/17 08:29 12/15/16 00:55 650 MG Ondansetron HCl (Zofran Inj) 4 mg Q6H PRN IV 12/11/16 08:30 01/10/17 08:29 Insulin Aspart (novoLOG ASPART) SLIDING SCALE If C... ACHS SC 12/11/16 12:00 01/10/17 11:59 12/15/16 12:43 1 UNITS Glucose (Glucose 40% Gel) 15-30 GRAMS 15 GRAMS... UD PRN PO 12/11/16 08:30 01/10/17 08:29 Glucose (Glucose Chew Tab) 4-8 Tablets 4 Tabl... UD PRN PO 12/11/16 08:30 01/10/17 08:29 Dextrose (Dextrose 50% 50ML Syringe) 25-50ML OF 50% DW IV FOR... UD PRN IV 12/11/16 08:30 01/10/17 08:29 Glucagon (Glucagon Inj) 1 mg UD PRN SQ 12/11/16 08:30 01/10/17 08:29 Albuterol Sulfate (Ventolin 0.083% 2.5MG/3ML Neb) 2.5 mg Q4H PRN INH 12/11/16 09:00 01/10/17 08:59 Atorvastatin Calcium (Lipitor Tab) 20 mg DAILY PO 12/11/16 09:00 01/10/17 08:59 12/15/16 08:28 20 MG Levothyroxine Sodium (Synthroid Tab) 50 mcg DAILYBB PO 12/11/16 09:00 01/10/17 08:59 12/15/16 05:58 50 MCG Metoprolol Succinate (Toprol Xl Tab) 50 mg DAILY PO 12/11/16 09:00 01/10/17 08:59 12/15/16 07:42 50 MG Prednisone (PredniSONE TAB) 10 mg DAILY PO 12/11/16 09:00 01/10/17 08:59 12/15/16 08:29 10 MG Calcium/Vitamin D (Caltrate Plus Tab) 1 tab DAILY PO 12/11/16 09:00 01/10/17 08:59 12/15/16 08:28 1 TAB Morphine Sulfate (MoRPHine SULFATE INJ) 3 mg Q3H PRN IV 12/11/16 09:00 12/25/16 08:59 Clonidine HCl (Catapres Tab) 0.1 mg Q4 PRN PO 12/12/16 20:15 01/11/17 20:14 12/15/16 09:04 0.1 MG Lactobacillus Acidophilus (Floranex Tab) 4 tab DAILY PO 12/13/16 11:30 01/12/17 11:29 12/15/16 08:28 4 TAB Calcium Carbonate (Tums Chew Tab) 500 mg BID PRN PO 12/14/16 15:45 01/13/17 15:44 12/14/16 16:26 500 MG Al Hydroxide/Mg Hydroxide (Maalox Susp) 30 ml Q6H PRN PO 12/14/16 15:45 01/13/17 15:44 12/14/16 21:16 30 ML Amoxicillin/ Clavulanate Potassium (Augmentin Tab) 875 mg BIDM PO 12/15/16 08:30 12/25/16 08:29 12/15/16 08:49 875 MG Amlodipine Besylate (Norvasc Tab) 5 mg QAM PO 12/16/16 09:00 01/15/17 08:59 Objective Vital Signs Date Time Temp Pulse Resp B/P (MAP) Pulse Ox O2 Delivery O2 Flow Rate FiO2 12/15/16 13:02 151/82 (105) 12/15/16 11:11 142/82 (102) 12/15/16 09:00 97 16 160/83 (108) 95 Room Air 12/15/16 07:40 Room Air 12/15/16 07:00 36.8 78 16 161/84 (109) 96 Room Air 12/15/16 01:00 Room Air 12/14/16 22:56 37.0 85 17 158/80 (106) 93 Room Air 12/14/16 20:27 Room Air 12/14/16 15:32 37.8 85 18 158/87 (110) 93 Room Air Physical Exam General Appearance: no apparent distress Respiratory/Chest: lungs clear, normal breath sounds, no respiratory distress, no accessory muscle use Cardiovascular: regular rate, rhythm, no edema, no murmur Abdomen: normal bowel sounds, non tender, soft Extremities: normal inspection, no pedal edema Neurologic/Psychiatric: no motor/sensory deficits, alert, normal mood/affect Laboratory Results Last 24 Hours Test 12/14/16 17:07 12/14/16 20:24 12/15/16 05:53 Bedside Glucose 136 mg/dl 158 mg/dl White Blood Count 5.51 K/uL Red Blood Count 3.86 M/uL Hemoglobin 12.5 g/dL Hematocrit 36.6 % Mean Corpuscular Volume 94.8 fL Mean Corpuscular Hemoglobin 32.4 pg Mean Corpuscular Hemoglobin Concent 34.2 g/dl RDW Standard Deviation 41.8 fL RDW Coefficient of Variation 12.1 % Platelet Count 220 K/uL Mean Platelet Volume 9.6 fL Sodium Level 139 mmol/L Potassium Level 3.7 mmol/L Chloride Level 100 mmol/L Carbon Dioxide Level 33 mmol/L Anion Gap 6.0 mmol/L Blood Urea Nitrogen 5 mg/dl Creatinine 0.77 mg/dl Est Creatinine Clear Calc Drug Dose 64.1 ml/min Estimated GFR () 85.1 Estimated GFR (Non- 73.4 BUN/Creatinine Ratio 6.3 Random Glucose 98 mg/dl Calcium Level 9.3 mg/dl Assessment and Plan SEPSIS DUE TO ACUTE SIGMOID/DESCENDING COLON DIVERTICULITIS 12/15 did not tolerate Cipro + Flagyl will switch to Augmentin, she tolerated her first dose of this DM2, low fiber diet on discharge outpatient PCP follow-up on December 22 - 2:45PM at Dr Gaston 12/14 switched to Cipro + Flagyl will advance diet to regular diet today (DM2, low fiber) if tolerating well, plan to d/c home on 12/15 12/13 continue IV Zosyn advance to full liquid stop IVFs monitor clinical response tomorrow outpatient colonoscopy in 6-8 weeks 12/12 continue Zosyn continue IVFs and clears will likely advance diet in AM (12/13) outpatient colonoscopy in 6-8 weeks 12/11 - admit to med/surg - patient presenting with LLQ abdominal pain x 2 weeks that acutely worsened over the past 2 days; CT in the ED showing acute sigmoid and descending colon diverticulitis - meets sepsis criteria - WBC 15K, tachycardic; BP stable, lactic acid WNL - s/p Zosyn in the ED, will continue with - IVF, pain and nausea control - stool studies - clear liquids for now - patient reports colonoscopy several years ago at [facility]; records unavailable; prior CT abd has shown diverticulosis - will need outpatient colonoscopy in 6-8 weeks (GI notified to contact patient for scheduling) HTN uncontrolled overnight; possibly secondary to pain and IVFs stopped the fluids and clonidine PRN was added HX SJGREN'S,RHEUMATOID ARTHRITIS,AUTOIMMUNE HEPATITIS - continue steroids - LFTs WNL DM - diet controlled - hgb a1c 7.1 09/2016 - SSI while hospitalized HYPOTHYROIDISM - continue levothyroxine HLD - continue statin 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 DISPO - In my clinical judgment this beneficiary meets acute admission criteria, established by CMS, that includes being hospitalized through two midnights. - PT/OT consults placed
[2016-12-15] MEDS ORDERED: NRV5 PO (15:17)
[2016-12-15] MEDS ORDERED: LCTX PO (15:17)
[2016-12-15] MEDS ORDERED: AMOX1TAB43 PO (15:17)
--- NOTE | 2016-12-15 15:22 | Discharge Instructions ---
Discharge Instructions Date of Service Dec 15, 2016. Admission Reason for Admission: Diverticulitis Discharge Discharge Diagnosis / Problem: Acute Diverticulitis Discharge Goals Goal(s): Decrease discomfort, Improve function, Diagnostic testing, Therapeutic intervention Activity Recommendations Activity Limitations: resume your previous activity . Instructions / Follow-Up Instructions / Follow-Up Please follow-up with Dr. Gaston (covering for Dr. Mohamud) on December 22 at 2:45PM * You will be on Augmentin (antibiotic) twice a day for the next week * keep a low fiber diet for now * you will need a colonoscopy in 6-8 weeks * Started on amlodipine (blood pressure medication) - should get your blood pressure rechecked with primary care and medications should be adjusted accordingly Current Hospital Diet Patient's current hospital diet: Diabetes Type 2 Diet, Low Fiber Diet Discharge Diet Recommended Diet: Diabetes Type 2 Diet, Low Fiber Diet Pending Studies Studies pending at discharge: no Laboratory Results Hemoglobin A1c Test 09/28/16 06:51 Range/Units Estimated Average Glucose 157 mg/dl Hemoglobin A1c 7.1 H 4.5-5.6 % Medical Emergencies . Who to Call and When: Medical Emergencies: If at any time you feel your situation is an emergency, please call 911 immediately. . Non-Emergent Contact Non-Emergency issues call your: Primary Care Provider . . "Provider Documentation" section prepared by Kristin Corrigan. . VTE Core Measure Inpt VTE Proph given/why not?: Enoxaparin (Lovenox)SQ
--- NOTE | 2016-12-15 15:40 | Discharge Summary ---
Discharge Summary Date of Service Dec 15, 2016. Discharge Summary Admission Date: Dec 11, 2016 at 07:41 Discharge Date: Dec 15, 2016 Discharge Disposition: Home Principal Diagnosis: Acute Diverticulitis Medication Reconciliation New Medications: Amlodipine Besylate (Amlodipine Besylate) 5 Mg Tab 5 MG PO QAM for 30 Days, #30 TAB Amoxicillin & Pot Clavulanate (Amoxicillin/Clavulanate P) 1 Tab Tab 875 MG PO BIDM for 7 Days, #14 TAB Lactobacillus Acidophilus (Floranex) 1 Tab Tab 4 TAB PO DAILY for 30 Days, #120 TAB Continued Medications: Acetaminophen Tab (Tylenol) 325 Mg Tab 325 MG PO DIRECTED PRN for Pain or Fever, TAB Albuterol Hfa (Ventolin Hfa) 200 Puffs/71673 Mcg Aers 2 PUFFS INH Q6H PRN for SOB/Wheezing Albuterol Sulf (Proventil 0.083% 2.5MG/3ML) 2.5 Mg/3 Ml Nebu 2.5 MG INH Q4H PRN for SOB/Wheezing, EA Atorvastatin (Lipitor) 20 Mg Tab 1 TAB PO DAILY for 90 Days, #90 TAB 1 Refill Calcium Carbonate-Vitamin D (Calcium Carbonate/Vitamin) 1 Tab Tab 1 TAB PO DAILY Famotidine (Pepcid) 20 Mg Tab 10 MG PO DAILY PRN, 0 Refills Wofglwws-Hsogxbkxhetw-Wivkhqqu (Artificial Tears) 1 Roshan Roshan DIRECTED Ipratropium [place] (Atrovent 0.02% Soln) 2.5 Ml Nebu 1 VIAL INH Q4H PRN for SOB/Wheezing Lactic Acid (Ammonium Lactate Cream 12%) 280 Gm Cr 1 APPLN TOP BID PRN for DRYNESS Levothyroxine Sodium (Synthroid) 50 Mcg Tab 50 MCG PO DAILY, TAB Metoprolol Succinate (Toprol Xl) 50 Mg Tabcr 50 MG PO DAILY, #30 TAB Prednisone Tab (Prednisone) 10 Mg Tab 10 MG PO DAILY, TAB Triamcinolone Acet (Aristocort 0.1%) 90 Appln/30 Gm Cr 1 APPLN EXT BID PRN for RASH Admission Information HPI (per Admitting provider): 81 year old female who presents to the ED with abdominal pain. Patient reports pain began a couple of weeks ago but got acutely worse over the past two days. She reports the pain is located in the LLQ and radiates over to the suprapubic area. Pain is worse with movement. She reports the pain at its worst was #9/10 and at rest it is #5/10. She describes the pain as stabbing. Last night she had nausea and dry heaves. She reports intermittent diarrhea however that is chronic for her. It has not been worsening. She denies BRBPR or dark tarry stools. Last night she also reports chills and then feeling hot. She suspected she had a fever but did not take her temperature. She denies chest pain and shortness of breath. She reports some lightheadedness and dizziness but denies any syncopal event. She denies any urinary symptoms. In the ED, CT abd/pelvis is showing acute sigmoid and distal descending colon diverticulitis. WBC 15K, she is mildly tachycardic. She was given IVF, IV Zosyn, Zofran, and Fentanyl. Physical Exam (per Admitting): General Appearance: WD/WN, no apparent distress Head: normocephalic, atraumatic Eyes: normal inspection, EOMI, sclerae normal ENT: hearing grossly normal, + pertinent finding (dry mucous membranes) Neck: supple, no JVD, trachea midline Respiratory/Chest: no respiratory distress, + crackles (BL bases ) Cardiovascular: no edema, normal peripheral pulses, + tachycardia (regular rhythm) Abdomen/GI: normal bowel sounds, soft, + tenderness (LLQ) Extremities/Musculoskelatal: normal inspection, no calf tenderness, normal capillary refill Neurologic/Psych: no motor/sensory deficits, alert, normal mood/affect, oriented x 3 Skin: normal color, warm/dry Hospital Course SEPSIS DUE TO ACUTE SIGMOID/DESCENDING COLON DIVERTICULITIS 12/15 did not tolerate Cipro + Flagyl will switch to Augmentin, she tolerated her first dose of this DM2, low fiber diet on discharge outpatient PCP follow-up on December 22 - 2:45PM at Dr Gaston 12/14 switched to Cipro + Flagyl will advance diet to regular diet today (DM2, low fiber) if tolerating well, plan to d/c home on 12/15 12/13 continue IV Zosyn advance to full liquid stop IVFs monitor clinical response tomorrow outpatient colonoscopy in 6-8 weeks 12/12 continue Zosyn continue IVFs and clears will likely advance diet in AM (10/28) outpatient colonoscopy in 6-8 weeks 12/11 - admit to med/surg - patient presenting with LLQ abdominal pain x 2 weeks that acutely worsened over the past 2 days; CT in the ED showing acute sigmoid and descending colon diverticulitis - meets sepsis criteria - WBC 15K, tachycardic; BP stable, lactic acid WNL - s/p Zosyn in the ED, will continue with - IVF, pain and nausea control - stool studies - clear liquids for now - patient reports colonoscopy several years ago at [facility]; records unavailable; prior CT abd has shown diverticulosis - will need outpatient colonoscopy in 6-8 weeks (GI notified to contact patient for scheduling) HTN uncontrolled overnight; possibly secondary to pain and IVFs stopped the fluids and clonidine PRN was added HX SJGREN'S,RHEUMATOID ARTHRITIS,AUTOIMMUNE HEPATITIS - continue steroids - LFTs WNL DM - diet controlled - hgb a1c 7.1 09/2016 - SSI while hospitalized HYPOTHYROIDISM - continue levothyroxine HLD - continue statin 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 DISPO - In my clinical judgment this beneficiary meets acute admission criteria, established by [facility], that includes being hospitalized through two midnights. - PT/OT consults placed Total time spent on discharge = 35 minutes This includes examination of the patient, discharge planning, medication reconciliation, and communication with other providers. Discharge Instructions Please follow-up with Dr. Gaston (covering for Dr. Mohamud) on December 22 at 2:45PM * You will be on Augmentin (antibiotic) twice a day for the next week * keep a low fiber diet for now * you will need a colonoscopy in 6-8 weeks * Started on amlodipine (blood pressure medication) - should get your blood pressure rechecked with primary care and medications should be adjusted accordingly
[2016-12-15 15:50] VITALS: BP 151/82; PULSE 97; TEMP 36.8; O2SAT 95
[2016-12-16] MEDS ORDERED: AMLODIPINE BESYLATE 5 MG TAB PO SCH (09:00)
== END 2016-12-15 16:56 | disposition home or self-care (01) | DRG 872 ==
LOC: EDBD 05:15 → C.EDA 05:16 → C.MSN 07:41 → ENRESERV 08:18
PROVIDERS: ADMIT Family Medicine; ATTEND Family Medicine
DX: A41.9 Sepsis, unspecified organism (principal); K57.32 Diverticulitis of large intestine without perforation or abscess without bleeding; N18.3 Chronic kidney disease, stage 3 (moderate); I12.9 Hypertensive chronic kidney disease with stage 1 through stage 4 chronic kidney disease, or unspecified chronic kidney disease; K21.9 Gastro-esophageal reflux disease without esophagitis; M81.0 Age-related osteoporosis without current pathological fracture; Z98.51 Tubal ligation status; Z80.52 Family history of malignant neoplasm of bladder; Z82.49 Family history of ischemic heart disease and other diseases of the circulatory system

== ENCOUNTER → 2017-05-08 | Day surgery (SDC) | payer OTHER ==
[2017-04-29 10:44] VITALS: Ht 177.8 cm; Wt 66.8 kg
[~2017-05-08] VITALS: Ht 177.8 cm; Wt 66.8 kg
[~2017-05-08] MED LIST changes: -ACET325T96 PO; +AMLO-110 PO; -AMOX1TAB43 PO; +ARTISOL12 OP; -ATRINSX INH; -CALC600T45 PO; +CALC600T9 PO; +COEN1CAP7 PO; +CRS/10 PO; -GLYCDRO6; -IPRA0.03 NAE; -LCHC12280 TOP; -LEVO50TA PO; +LEVO50TA6 PO; +LIDOCAINE HCL 2% 2 ML VIAL (20MG/ML) ONE; -LISI-461 PO; +METO-478 PO; -METO25TA3 PO; +METOPROLOL TARTRATE 1 MG/ML VIAL ONE; +MIDAZOLAM HCL 1 MG/ML 2ML VIAL ONE; +ONDANSETRON INJ 2 MG/ML 2 ML VIAL ONE; +PROPOFOL IV EMULSION 10 MG/ML 20 ML VIAL IV ONE; +SODIUM CHLORIDE 0.9% 500ML 500 ML IV ONE; -TRMCR130WC EXT; +TRMCR515 TOP; +TYLER650 PO
--- NOTE | 2017-05-08 10:35 | Endo History and Physical ---
History & Physical Date of Service: May 08, 2017. Chief Complaint: diverticulitis in October; history of polyps Referring Physician: Pilar Mohamud History of Present Illness recent diverticulitis Past Surgical History Hx Cardiac Surgery: No Hx Internal Defibrillator: No Hx Pacemaker: No Hx Abdominal Surgery: Yes (APPY, TUBAL LIGATION, LIVER BIOSPY) Hx of Implantable Prosthesis: No Hx Post-Op Nausea and Vomiting: No Hx Cancer Surgery: No Hx Thoracic Surgery: No Hx Orthopedic: No Hx Urinary Tract Surgery: No Family History None Social History Smoking Status: Never Smoker Hx Substance Use: No Hx Alcohol Use: Yes (RARELY) Allergies Coded Allergies: Sulfamethoxazole w/Trimethoprim (Unverified Allergy, Severe, edema face/ lips/tongue, 04/29/17) Latex1 -Allergic Contact Dermititis (Unverified Allergy, Mild, LOCAL SKIN REACTION, 04/29/17) Niacin (Unverified Allergy, Mild, RASH, 04/29/17) Ciprofloxacin (Verified Adverse Reaction, Intermediate, GI SYMPTOMS, ) Metronidazole (Verified Adverse Reaction, Intermediate, GI SYMPTOMS, ) Naproxen (Unverified Adverse Reaction, Intermediate, BURNING STOMACH, 04/29) Current Medications Reported Home Medications Medications Dose Route/Sig Max Daily Dose Days Date Category Dose Instructions Triamcinolone Acetonide (Triamcinolone Acet) 45 Appln/15 Gm Cr 1 Appln TOP BID PRN 04/29/17 Reported Coq10 (Coenzyme Q10 (Ubidecarenone)) 200 Mg Cap 1 Cap PO DAILY AT NOON 04/29/17 Reported Tylenol Arthitis Ext Rel (Acetaminophen) 650 Mg Ertab 2 Tab PO BID 04/29/17 Reported Calcium + D (Calcium Carbonate-Vitamin D) 1 Tab Tab 1 Tab PO BID 01/21/17 Reported Pepcid (Famotidine) 20 Mg Tab 20 Mg PO DAILY PRN 01/21/17 Reported Artificial Tears (Artificial Tear Solution) 1 Sherin Sherin 1 Drops OP QID PRN 01/21/17 Reported Prednisone 5 Mg Tab 10 Mg PO QAM 01/21/17 Reported Levothyroxine Sodium 50 Mcg Tab 1 Tab PO QAM 01/21/17 Reported Toprol Xl (Metoprolol Succinate) 25 Mg Tab 1 Dose PO BID 01/21/17 Reported 2 TAB IN AM 1 TAB IN PM Crestor (Rosuvastatin Calcium) 10 Mg Tab 10 Mg PO DAILY AT NOON 01/21/17 Reported Norvasc (Amlodipine Besylate) 5 Mg Tab 5 Mg PO QPM 01/21/17 Reported Proventil 0.083% 2.5MG/3ML (Albuterol Sulf) 2.5 Mg/3 Ml Nebu 2.5 Mg INH Q4H PRN 09/14/16 Reported Ventolin Hfa (Albuterol) 200 Puffs/24536 Mcg Aers 2 Puffs INH Q6H PRN 09/14/16 Reported Vital Signs Weight (Kilograms): 66.82 Height (Feet): 5 Height (Inches): 10 Physical Exam General Appearance: WD/WN, no apparent distress Assessment and Plan Colonoscopy today
--- NOTE | 2017-05-08 11:07 | Discharge Instructions ---
Endoscopy Patient Instructions Date / Procedure(s) Performed May 08, 2017. Colonoscopy Allergy Information Coded Allergies: Sulfamethoxazole w/Trimethoprim (Unverified Allergy, Severe, edema face/ lips/tongue, 04/29/17) Latex1 -Allergic Contact Dermititis (Unverified Allergy, Mild, LOCAL SKIN REACTION, 04/29/17) Niacin (Unverified Allergy, Mild, RASH, 04/29/17) Ciprofloxacin (Verified Adverse Reaction, Intermediate, GI SYMPTOMS, ) Metronidazole (Verified Adverse Reaction, Intermediate, GI SYMPTOMS, ) Naproxen (Unverified Adverse Reaction, Intermediate, BURNING STOMACH, 04/29) Discharge Date / Findings May 08, 2017. diverticulosis; 2 small polyps; internal hemorrhoids Medication Instructions Restart Stopped Medication(s): OK ot resume home medications Provider Instructions Activity Restrictions - No exercising or heavy lifting for 24 hours. - Do not drink alcohol the day of the procedure. - Do not drive a car or operate machinery until the day after the procedure. - Do not make any important decisions or sign important papers in 24 hours after the procedure. Following Day: - Return to full activity which may include returning to work/school. Diet Start your diet with liquids and light foods (jello, soup, juice, toast). Then eat your usual diet if not nauseated. Treatment For Common After Affects For mild abdominal pain, bloating, or excessive gas: - Rest - Eat lightly - Lie on right side Follow-Up Information Follow-up with Pilar Mohamud as scheduled Anesthesia Information What You Should Know You have had a procedure that required some medicine to reduce anxiety and discomfort. This treatment is called moderate sedation. After receiving the treatment, you may be sleepy, but you will be able to breathe on your own. The effects of the treatment may last for several hours. Follow these instructions along with Activity/Diet recommendations noted above: * Do NOT do anything where dizziness or clumsiness would be dangerous. * Rest quietly at home today, then you can be up and about tomorrow. * Have a responsible person stay with you the rest of today. * You may have had an I.V. today. If so, you may take the dressing off later today. Recommendations Call your doctor if: * Trouble breathing * Continuous vomiting for more than 24 hours * Temperature above 101 degrees * Severe abdominal pain or bloating * Pain not relieved by pain medicine ordered * There is increased drainage or redness from any incision * A large amount of rectal bleeding greater than 2-3 tablespoons. (If you had a polyp/s removed or have hemorrhoids, a small amount of blood - from the rectum is to be expected.) * You have any unanswered questions or concerns. IN THE EVENT OF A SERIOUS EMERGENCY, GO TO THE NEAREST EMERGENCY ROOM Your discharge instructions were prepared by provider Winnie Lundy. Patient Instructions Signature Page María Kunz Patient (or Guardian) Signature/Date: I have read and understand the instructions given to me by my caregivers. Caregiver/RN/Doctor Signature/Date: The above-named patient and/or guardian has received patient instructions on this date. + Original Patient Signature Page (only) stays with chart. Please make copy for patient.
--- NOTE | 2017-05-08 11:10 | GI REPORT ---
Procedure Date: 05/08/2017 10:37 AM Procedure: Colonoscopy Indications: High risk colon cancer surveillance: Personal history of colonic polyps, Incidental - Follow-up of diverticulitis Medicines: Propofol per Anesthesia Complications: No immediate complications. Estimated blood loss: Minimal. Estimated Blood Loss: Estimated blood loss was minimal. Procedure: Pre-Anesthesia Assessment: - Prior to the procedure, a History and Physical was performed, and patient medications, allergies and sensitivities were reviewed. The patient's tolerance of previous anesthesia was reviewed. - The risks and benefits of the procedure and the sedation options and risks were discussed with the patient. All questions were answered and informed consent was obtained. - Patient identification and proposed procedure were verified prior to the procedure by the physician and the nurse. The procedure was verified in the pre-procedure area in the procedure room. - Mental Status Examination: alert and oriented. Airway Examination: normal oropharyngeal airway and neck mobility. Respiratory Examination: clear to auscultation. CV Examination: normal. Abdominal Examination: bowel sounds present, abdomen soft and non-tender, no masses or organomegaly noted. - ASA Grade Assessment: III - A patient with severe systemic disease. After I obtained informed consent, the scope was passed under direct vision. Throughout the procedure, the patient's blood pressure, pulse, and oxygen saturations were monitored continuously. The scope was introduced through the anus and advanced to the cecum, identified by appendiceal orifice and ileocecal valve. The colonoscopy was performed without difficulty. The patient tolerated the procedure well. The quality of the bowel preparation was good. Findings: The perianal and digital rectal examinations were normal. Pertinent negatives include normal sphincter tone and no palpable rectal lesions. Two sessile polyps were found in the sigmoid colon. The polyps were diminutive in size. These polyps were removed with a cold biopsy forceps. Resection and retrieval were complete. Verification of patient identification for the specimen was done by the physician and nurse using the patient's name and date. Estimated blood loss was minimal. Multiple small and large-mouthed diverticula were found in the sigmoid colon. Internal hemorrhoids were found during retroflexion. The hemorrhoids were medium-sized and Grade I (internal hemorrhoids that do not prolapse). Impression: - Two diminutive polyps in the sigmoid colon, removed with a cold biopsy forceps. Resected and retrieved. - Diverticulosis in the sigmoid colon. - Internal hemorrhoids. Recommendation: - Await pathology results. - No repeat colonoscopy. - Return to referring physician as previously scheduled. - Discharge patient to home. Winnie Lundy D.O. Winnie Lundy, 05/08/2017 11:10:26 AM This report has been signed electronically. Note Initiated On: 05/08/2017 10:37 AM I attest to the content of the Intraoperative Record and orders documented therein, exceptions below
--- NOTE | 2017-05-08 11:25 | Anesthesiology Progress Note ---
Anesthesia Post Op Note Date & Time May 08, 2017 at 11:24 Vital Signs Pain Intensity: 0 Vital Signs Past 12 Hours Date Time Temp Pulse Resp B/P (MAP) Pulse Ox O2 Delivery O2 Flow Rate FiO2 05/08/17 11:10 87 16 115/64 (81) 98 Room Air 05/08/17 10:37 36.8 115 20 156/97 (116) 96 Room Air Notes Mental Status: alert / awake / arousable, participated in evaluation Pt Amnestic to Procedure: Yes Nausea / Vomiting: adequately controlled Pain: adequately controlled Airway Patency, RR, SpO2: stable & adequate BP & HR: stable & adequate Hydration State: stable & adequate Anesthetic Complications: no major complications apparent The patient did well. She is awake and comfortable in recovery. Her lungs are clear to auscultation in recovery. Her heart rate decreased to the 80s after metoprolol was given in the procedure suite.
[2017-05-08 11:40] VITALS: BP 145/83; PULSE 83; O2SAT 95
== END | disposition home or self-care (01) ==
LOC: C.GI 10:02
PROVIDERS: ATTEND Internal Medicine
DX: K57.30 Diverticulosis of large intestine without perforation or abscess without bleeding (principal); K64.8 Other hemorrhoids; Z86.010 Personal history of colon polyps; I12.9 Hypertensive chronic kidney disease with stage 1 through stage 4 chronic kidney disease, or unspecified chronic kidney disease; E78.5 Hyperlipidemia, unspecified; E11.9 Type 2 diabetes mellitus without complications; K21.9 Gastro-esophageal reflux disease without esophagitis; J84.9 Interstitial pulmonary disease, unspecified; E03.9 Hypothyroidism, unspecified; N18.3 Chronic kidney disease, stage 3 (moderate); K75.4 Autoimmune hepatitis; J45.909 Unspecified asthma, uncomplicated; Z90.89 Acquired absence of other organs; Z98.51 Tubal ligation status; Z88.2 Allergy status to sulfonamides; Z91.040 Latex allergy status; Z88.8 Allergy status to other drugs, medicaments and biological substances; Z88.6 Allergy status to analgesic agent; Q87.1 Congenital malformation syndromes predominantly associated with short stature; Z79.52 Long term (current) use of systemic steroids

== ENCOUNTER 2017-05-22 22:38 | Inpatient (IN) | payer OTHER ==
[~2017-05-22] VITALS: Ht 175.3 cm; Wt 68.7 kg
[~2017-05-22 22:38] MED LIST changes: -LIDOCAINE HCL 2% 2 ML VIAL (20MG/ML) ONE; -METOPROLOL TARTRATE 1 MG/ML VIAL ONE; -MIDAZOLAM HCL 1 MG/ML 2ML VIAL ONE; -ONDANSETRON INJ 2 MG/ML 2 ML VIAL ONE; -PROPOFOL IV EMULSION 10 MG/ML 20 ML VIAL IV ONE; -SODIUM CHLORIDE 0.9% 500ML 500 ML IV ONE
[2017-05-22] MEDS ORDERED: SODIUM CHLORIDE 0.9% 1000ML 1,000 ML IV STA (22:48)
[2017-05-22] MEDS ORDERED: ONDANSETRON INJ 2 MG/ML 2 ML VIAL IV STA (22:48)
[2017-05-22] MEDS ORDERED: FAMOTIDINE 20 MG TAB PO ONE (23:00)
--- NOTE | 2017-05-22 23:07 | EMERGENCY ROOM VISIT NOTE ---
History Report prepared by Donnell: Adwoa Diaz Under the Supervision of: Dr. Herson Kelly M.D. First contact with patient: 22:47 Chief Complaint: ILLNESS Stated Complaint: FEVER, SOB, ELEVATED HEARTRATE, COUGH History of Present Illness The patient is a 82 year old female who presents to the Emergency Room with complaints of flu-like symptoms beginning 8 days ago. The patient reports having fevers, chills, nausea, a cough, diarrhea, and congestion, but denies vomiting. She reports that she saw her doctor and was placed on Augmentin but stopped taking it 2 days ago due to nausea. The patient also reports having a sorethroat and states that there is pressure in her ears and the top of her head. The patient describes the pressure in her head by stating that it feels like there is fluid there. Source of History: patient Onset: 8 days ago Position: other (global) Quality: other (flu-like symptoms ) Associated Symptoms: + fevers, + chills, + cough, + nausea, + diarrhea, No vomiting Review of Systems See HPI for pertinent positives and negatives. A total of ten systems were reviewed and were otherwise negative. Past Medical & Surgical Medical Problems: (1) Autoimmune hepatitis (2) Benign hypertension (3) Central retinal vein occlusion of left eye (4) Cholelithiasis (5) CKD (chronic kidney disease), stage III (6) Diverticulosis of colon (7) Dyslipidemia (8) GERD (gastroesophageal reflux disease) (9) Hypertension (10) Interstitial lung disease (11) Osteoporosis (12) Pneumonia (13) Sepsis (14) Sjogrens syndrome (15) Type II Diabetes Surgical Problems: (1) Status post appendectomy (2) Status post tubal ligation Family History Bladder cancer BROTHER COPD (chronic obstructive pulmonary disease) BROTHER SISTER Dementia FATHER Heart disease MOTHER Social History Smoking Status: Never Smoker Alcohol Use: none Housing Status: lives with family Current/Historical Medications Scheduled Acetaminophen (Tylenol Arthitis Ext Rel), 2 TAB PO BID Amlodipine (Norvasc), 5 MG PO QPM Calcium Carbonate-Vitamin D (Calcium + D), 1 TAB PO BID Coenzyme Q10 (Ubidecarenone) (Coq10), 1 CAP PO DAILY AT NOON Levothyroxine Sodium (Levothyroxine Sodium), 1 TAB PO QAM Metoprolol Succinate (Toprol Xl), 1 DOSE PO BID Prednisone (Prednisone), 10 MG PO QAM Rosuvastatin Calcium (Crestor), 10 MG PO DAILY AT NOON Scheduled PRN Albuterol Hfa (Ventolin Hfa), 2 PUFFS INH Q6H PRN for SOB/Wheezing Albuterol Sulf (Proventil 0.083% 2.5MG/3ML), 2.5 MG INH Q4H PRN for SOB/Wheezing Artificial Tear Solution (Artificial Tears), 1 DROPS OP QID PRN for PRN Famotidine (Pepcid), 20 MG PO DAILY PRN for Indigestion Triamcinolone Acet (Triamcinolone Acetonide), 1 APPLN TOP BID PRN for PRN Allergies Coded Allergies: Sulfamethoxazole w/Trimethoprim (Unverified Allergy, Severe, edema face/ lips/tongue, 05/23/17) Latex1 -Allergic Contact Dermititis (Unverified Allergy, Mild, LOCAL SKIN REACTION, 05/23/17) Niacin (Unverified Allergy, Mild, RASH, 05/23/17) Ciprofloxacin (Verified Adverse Reaction, Intermediate, GI SYMPTOMS, ) Metronidazole (Verified Adverse Reaction, Intermediate, GI SYMPTOMS, ) Naproxen (Unverified Adverse Reaction, Intermediate, BURNING STOMACH, ) Physical Exam Vital Signs Date Time Temp Pulse Resp B/P (MAP) Pulse Ox O2 Delivery O2 Flow Rate FiO2 05/23/17 02:06 36.8 116 20 125/66 96 Nasal Cannula 2.0 05/23/17 01:17 36.6 121 20 159/74 96 Nasal Cannula 2.0 05/23/17 01:00 96 Nasal Cannula 2.0 05/23/17 01:00 128 20 133/72 96 Nasal Cannula 2.0 05/22/17 23:32 112 20 96 Room Air 05/22/17 23:17 108 05/22/17 22:43 38.4 116 18 157/87 92 Room Air Physical Exam GENERAL: Awake, alert, fatigued and uncomfortable-appearing, in no distress HENT: Normocephalic, atraumatic. Dry and cracked mucous membranes, otherwise oropharynx unremarkable. EYES: Normal conjunctiva. Sclera non-icteric. NECK: Supple. No nuchal rigidity. FROM. No JVD. RESPIRATORY: Diminished breath sounds at the bases with scattered intermittent wheezes CARDIAC: Regular rate, normal rhythm. Extremities warm and well perfused. Pulses equal. ABDOMEN: Soft, non-distended. Mild periumbilical tenderness. No peritoneal signs. No rebound or guarding. No masses. RECTAL: Deferred. MUSCULOSKELETAL: Chest examination reveals no tenderness. The back is symmetrical on inspection without obvious abnormality. There is no CVA tenderness to palpation. No joint edema. LOWER EXTREMITIES: Calves are equal size bilaterally and non-tender. No edema. No discoloration. NEURO: Normal sensorium. No sensory or motor deficits noted. SKIN: No rash or jaundice noted. Medical Decision & Procedures ER Provider Diagnostic Interpretation: Radiology results as stated below per my review. Chest X-Ray: Patchy left-sided infiltrates. Laboratory Results 05/22/17 23:13 Red Blood Count 4.13, Mean Corpuscular Volume 93.0, Mean Corpuscular Hemoglobin 32.7, Mean Corpuscular Hemoglobin Concent 35.2, Mean Platelet Volume 9.7, Neutrophils (%) (Auto) 72.6, Lymphocytes (%) (Auto) 13.9, Monocytes (%) (Auto) 11.7, Eosinophils (%) (Auto) 1.2, Basophils (%) (Auto) 0.3, Neutrophils # (Auto ) 6.30, Lymphocytes # (Auto) 1.21, Monocytes # (Auto) 1.02, Eosinophils # (Auto ) 0.10, Basophils # (Auto) 0.03 05/22/17 23:13 Test 05/22/17 23:11 05/22/17 23:13 05/22/17 23:19 05/22/17 23:41 Bedside Lactic Acid Venous 1.46 mmol/L (0.90-1.70) White Blood Count 8.69 K/uL (4.8-10.8) Red Blood Count 4.13 M/uL (4.2-5.4) Hemoglobin 13.5 g/dL (12.0-16.0) Hematocrit 38.4 % (37-47) Mean Corpuscular Volume 93.0 fL (80-100) Mean Corpuscular Hemoglobin 32.7 pg (25-34) Mean Corpuscular Hemoglobin Concent 35.2 g/dl (32-36) Platelet Count 226 K/uL (130-400) Mean Platelet Volume 9.7 fL (7.4-10.4) Neutrophils (%) (Auto) 72.6 % Lymphocytes (%) (Auto) 13.9 % Monocytes (%) (Auto) 11.7 % Eosinophils (%) (Auto) 1.2 % Basophils (%) (Auto) 0.3 % Neutrophils # (Auto) 6.30 K/uL (1.4-6.5) Lymphocytes # (Auto) 1.21 K/uL (1.2-3.4) Monocytes # (Auto) 1.02 K/uL (0.11-0.59) Eosinophils # (Auto) 0.10 K/uL (0-0.5) Basophils # (Auto) 0.03 K/uL (0-0.2) RDW Standard Deviation 40.8 fL (36.4-46.3) RDW Coefficient of Variation 12.0 % (11.5-14.5) Immature Granulocyte % (Auto) 0.3 % Immature Granulocyte # (Auto) 0.03 K/uL (0.00-0.02) Anion Gap 7.0 mmol/L (3-11) Est Creatinine Clear Calc Drug Dose 52.7 ml/min Estimated GFR () 70.9 Estimated GFR (Non- 61.2 BUN/Creatinine Ratio 15.7 (10-20) Osmolality 275 mOsm/kg (280-300) Calcium Level 9.3 mg/dl (8.5-10.1) Total Bilirubin 0.5 mg/dl (0.2-1) Direct Bilirubin 0.1 mg/dl (0-0.2) Aspartate Amino Transf (AST/SGOT) 30 U/L (15-37) Alanine Aminotransferase (ALT/SGPT) 25 U/L (12-78) Alkaline Phosphatase 71 U/L (45-117) Troponin I < 0.015 ng/ml (0-0.045) Total Protein 7.8 gm/dl (6.4-8.2) Albumin 3.4 gm/dl (3.4-5.0) Lipase 342 U/L (73-393) Influenza Type A (RT-PCR) Neg for Influ A (NEG) Influenza Type B (RT-PCR) Neg for Influ B (NEG) Venous Blood pH 7.43 (7.36-7.41) Venous Blood Partial Pressure CO2 40 mmHg (38.0-50.0) Venous Blood Partial Pressure O2 29 mmHg Venous Blood HCO3 26 mmol/L Venous Blood Oxygen Saturation < 60.0 % Venous Blood Base Excess 1.2 mEq/L Lactic Acid Level 1.5 mmol/L (0.4-2.0) Test 05/23/17 01:01 Urine Color YELLOW Urine Appearance CLEAR (CLEAR) Urine pH 5.5 (4.5-7.5) Urine Specific [place] 1.011 (1.000-1.030) Urine Protein NEG (NEG) Urine Glucose (UA) NEG (NEG) Urine Ketones NEG (NEG) Urine Occult Blood NEG (NEG) Urine Nitrite NEG (NEG) Urine Bilirubin NEG (NEG) Urine Urobilinogen NEG (NEG) Urine Leukocyte Esterase NEG (NEG) Laboratory results reviewed by me Medications Administered Medications (Trade) Dose Ordered Sig/Nataly Route Start Time Stop Time Status Last Admin Dose Admin Sodium Chloride 1,000 ml @ 999 mls/hr Q1H1M STAT IV 05/22/17 22:48 05/22/17 23:48 DC 05/22/17 23:09 999 MLS/HR Ondansetron HCl (Zofran Inj) 4 mg NOW STAT IV 05/22/17 22:48 05/22/17 22:51 DC 05/22/17 23:09 4 MG Famotidine (Pepcid Tab) 20 mg NOW ONCE PO 05/22/17 23:00 05/22/17 23:01 DC 05/22/17 23:09 20 MG Dexamethasone Sodium Phosphate (Dexamethasone Inj Pf) 10 mg NOW ONCE IV 05/22/17 23:15 05/22/17 23:16 DC 05/22/17 23:23 10 MG Acetaminophen 100 ml @ 400 mls/hr NOW STAT IV 05/22/17 23:16 05/22/17 23:30 DC 05/22/17 23:24 400 MLS/HR Cefepime HCl 1000 mg/Dextrose 111 ml @ 200 mls/hr NOW STAT IV 05/23/17 00:51 05/23/17 01:24 DC 05/23/17 01:08 200 MLS/HR Azithromycin 500 mg/Dextrose 255 ml @ 125 mls/hr ONE ONCE IV 05/23/17 01:00 05/23/17 03:02 05/23/17 01:08 125 MLS/HR Vancomycin HCl 1500 mg/Sodium Chloride 530 ml @ 200 mls/hr NOW STAT IV 05/23/17 00:56 05/23/17 03:34 05/23/17 01:08 200 MLS/HR ECG Per My Interpretation Indication: weakness Rate (beats per minute): 110 Rhythm: sinus tachycardia Findings: no acute ischemic change, other (left ventricular hypertrophy ) ED Course 2347: The patient was evaluated in room A9B. A complete history and physical exam was performed. Medical Decision I reviewed the patient's past medical history, medications, and the nursing notes as described above. Differential diagnosis: Etiologies such as metabolic, infection, hypo/hyperglycemia, electrolyte abnormalities, cardiac sources, intracerebral event, toxicologic, neurologic, as well as others were entertained. The patient is a 82-year-old woman with a past medical history of Sjogren's and Interstitial lung disease presents emergency department with the complaint of cough congestion, generalized weakness, nausea over the past several days per hpi. On arrival the patient is fatigued appearing but no acute distress. She is she is febrile to 38.4 heart rate 110s vital signs otherwise stable. On exam the patient has diminished breath sounds at the bases with scattered wheezes. WBC and lactate within normal limits. Chest x-ray with left-sided scattered infiltrates concerning for pneumonia. Labs otherwise unremarkable. She feeling improved after steroids and continuous DuoNeb although with O2 saturations 89-90% on room air. Will treat empirically for sepsis given the patient's 2 out of 4 Sirs criteria on arrival with patchy pneumonia on chest x- ray. Case was discussed with [facility], who will admit the patient for further management. Medication Reconcilliation Current Medication List: was personally reviewed by [place] Blood Pressure Screening Patient's blood pressure: Elevated blood pressure Blood pressure disposition: Elevated BP felt to be situational Consults Time Called: 44 Consulting Physician: [facility] Returned Call: 50 Will evaluate for admission. Impression Primary Impression: Sepsis Additional Impressions: Pneumonia Interstitial lung disease Critical Care I have personally spent greater than 35 minutes of critical care time in the direct management of this patient. This includes bedside care, interpretation of diagnostic studies, and testing, discussion with consultants, patient, and family members, and other required patient management activities. This 35 minutes is in excess of all separately billable procedures. Scribe Attestation The scribe's documentation has been prepared under my direction and personally reviewed by me in its entirety. I confirm that the note above accurately reflects all work, treatment, procedures, and medical decision making performed by me. Departure Information Referrals Pilar Mohamud D.O. (PCP) Patient Instructions My [facility] Problem Qualifiers
[2017-05-22] MEDS ORDERED: ALBUT/IPRATROP 3MG/0.5MG NEB 3 ML VIAL INH ONE (23:15)
[2017-05-22] MEDS ORDERED: DEXAMETHASONE **PF** INJ 10 MG/ML VIAL IV ONE (23:15)
[2017-05-22] MEDS ORDERED: ACETAMINOPHEN IV 100 ML IV STA (23:16)
[2017-05-22 23:32] VITALS: PULSE 112; O2SAT 96
[2017-05-22 23:49] LABS: BASO % 0.3 %; BASO ABS # 0.03 K/uL (0-0.2); EOS % 1.2 %; HEMATOCRIT 38.4 % (37-47); HEMOGLOBIN 13.5 g/dL (12.0-16.0); IG# 0.03 K/uL (0.00-0.02); LYMPH % 13.9 %; LYMPH ABS # 1.21 K/uL (1.2-3.4); MEAN CORPUSCULAR HEMOGLOBIN 32.7 pg (25-34); MEAN CORPUSCULAR HGB CONC 35.2 g/dl (32-36); MEAN PLATELET VOLUME 9.7 fL (7.4-10.4); MONO % 11.7 %; MONO ABS # 1.02 K/uL (0.11-0.59); NEUT % 72.6 %; PLATELET COUNT 226 K/uL (130-400); RED CELL DISTRIBUTION WIDTH SD 40.8 fL (36.4-46.3); WHITE BLOOD COUNT 8.69 K/uL (4.8-10.8)
[2017-05-23] VITALS (7 sets, daily range): BP systolic 120–156; BP diastolic 64–78; PULSE 88–114; TEMP 36.5–36.7; O2SAT 91–99; Ht 175.3 cm; Wt 68.7 kg
[2017-05-23 00:11] LABS: ALBUMIN 3.4 gm/dl (3.4-5.0); ALT/SGPT 25 U/L (12-78); AST/SGOT 30 U/L (15-37); BLOOD UREA NITROGEN 14 mg/dl (7-18); CALCIUM 9.3 mg/dl (8.5-10.1); CARBON DIOXIDE 27 mmol/L (21-32); CREATININE 0.89 mg/dl (0.60-1.20); GLUCOSE 132 mg/dl (70-99); LIPASE 342 U/L (73-393); POTASSIUM 3.6 mmol/L (3.5-5.1); SODIUM 129 mmol/L (136-145)
[2017-05-23 00:19] LABS: ALKALINE PHOSPHATASE 71 U/L (45-117); TOTAL PROTEIN 7.8 gm/dl (6.4-8.2)
[2017-05-23 00:45] LABS: INFLUENZA A PCR Neg for Influ A (NEG); INFLUENZA B PCR Neg for Influ B (NEG)
[2017-05-23] MEDS ORDERED: VANCOMYCIN IV 1,400 MG in SODIUM CHLORIDE 0.9% 500ML 500 ML IV STA (00:51)
[2017-05-23] MEDS ORDERED: CEFEPIME IV 1,000 MG in DEXTROSE 5% 100ML 100 ML IV STA (00:51)
[2017-05-23] MEDS ORDERED: VANCOMYCIN IV 1,500 MG in SODIUM CHLORIDE 0.9% 500ML 500 ML IV STA (00:56)
[2017-05-23] MEDS ORDERED: AZITHROMYCIN IV 500 MG in DEXTROSE 5% 250ML 250 ML IV ONE (01:00)
[2017-05-23] MEDS ORDERED: VANCOMYCIN CONSULT ACTIVE PRN ×2 (01:00→01:45)
[2017-05-23] MEDS ORDERED: ONDANSETRON INJ 2 MG/ML 2 ML VIAL IV PRN (01:45)
[2017-05-23] MEDS ORDERED: FAMOTIDINE 20 MG TAB PO PRN (01:45)
[2017-05-23] MEDS ORDERED: ARTIFICIAL TEARS OP SOLN OP PRN (01:45)
[2017-05-23] MEDS ORDERED: VANCOMYCIN IV 0 MG in SODIUM CHLORIDE 0.9% 500ML 500 ML IV SCH (01:45)
[2017-05-23] MEDS ORDERED: ALBUTEROL 0.083% NEBU SOLN 3 ML VIAL INH PRN (01:45)
[2017-05-23] MEDS ORDERED: ALBUTEROL HFA 8 GM INHALER INH PRN (01:45)
[2017-05-23] MEDS ORDERED: TRIAMCINOLONE ACET 0.5% CR 15 GM TUBE EXT PRN (01:45)
[2017-05-23] MEDS ORDERED: GLUCOSE 10 TABS/TUBE PO PRN (02:45)
[2017-05-23] MEDS ORDERED: DEXTROSE 50% 50 ML SYR IV PRN (02:45)
[2017-05-23] MEDS ORDERED: GLUCOSE 40% GEL 15 GM TUBE PO PRN (02:45)
[2017-05-23] MEDS ORDERED: GLUCAGON FOR INJ 1 MG VIAL SQ PRN (02:45)
[2017-05-23] MEDS ORDERED: CEFEPIME CONSULT ACTIVE PRN (03:00)
[2017-05-23] MEDS ORDERED: METHYLPREDNISOLONE IV 40 MG in SYRINGE 0 ML IV ONE (03:00)
--- NOTE | 2017-05-23 05:32 | DIAGNOSTIC IMAGING REPORT ---
CHEST ONE VIEW PORTABLE CLINICAL HISTORY: 82 years-old Female presenting with Evaluate Fever/Sepsis. TECHNIQUE: Portable upright AP view of the chest was obtained. COMPARISON: 12/11/2016. FINDINGS: Atherosclerosis of aortic arch. Cardiac silhouette mildly enlarged. Diffuse added density in the left lung superimposed on reticular opacities with a basilar predominance. The right lung demonstrates similar though less severe reticular opacities without added density. The right lung is otherwise clear apart from chronic hyperdense nodules, which may indicate granuloma. No large pleural effusion or pneumothorax. Osseous structures normal. Upper abdomen normal. IMPRESSION: 1. Suggestion of diffuse added density in the left lung superimposed on chronic lung disease. This could raise concern for pneumonia, aspiration, or acute inflammation. The report will be called/faxed according to standard departmental protocol. Electronically signed by: Inocente Lamb M.D. 05/23/2017 5:31 AM Dictated Date/Time: 05/23/2017 5:25 AM
--- NOTE | 2017-05-23 06:09 | HISTORY & PHYSICAL EXAMINATION ---
DATE OF ADMISSION: 05/23/2017 PRIMARY CARE PHYSICIAN: Dr. Mohamud. CHIEF COMPLAINT: Shortness of breath, cough, fever and headache for the last 2-3 days. HISTORY OF PRESENT COMPLAINT: She is an 82-year-old female with significant past medical history of autoimmune hepatitis, type 2 diabetes, generalized osteoarthritis, irritable bowel syndrome, acute hypothyroidism, hyperlipidemia, anxiety, Sjogren's disease and degenerative joint disease and also interstitial lung disease, apparently has been complaining of cough and flu-like symptoms and also sinus pain and pressure since last week. She was seen in the clinic and was given Augmentin for possible maxillary sinusitis. She has not finished the course of antibiotic. She complains to have some diarrhea today about 2 times and also the cough is productive of thick whitish phlegm and feeling of fever and chills. She does have cough and more shortness of breath. Also, she has headache and facial pain in both sides. She did have nausea, but no vomiting. In the ER, she was noted to have tachycardia with a pulse rate of 121, tachypnea and also a temperature of 38.4 and her chest x-ray did show probable infiltration which is very difficult to isolate due to chronic pulmonary fibrosis, but from that point, she received vancomycin and cefepime and also azithromycin and advised for admission. Her white count was unremarkable. PAST MEDICAL HISTORY: Significant for autoimmune hepatitis, treated with steroid type 2 diabetes, allergic rhinitis, chronic maxillary sinusitis, esophageal reflux, hypothyroidism, interstitial lung disease, Sjogren's disease, degenerative disc disease, chronic kidney disease stage III, hypertension. PAST SURGICAL HISTORY: Significant for uterine biopsy in the past. Liver biopsy secondary to autoimmune hepatitis and ligation of the oviduct. FAMILY HISTORY: Brother has diabetes and also another brother has bladder cancer. Mother did have some eye problem, hypertension. Brother does have lung disorder as well. Brother and sister have thyroid disease. SOCIAL HISTORY: She is . She never smoked or used any smokeless tobacco. She lives with her significant other and she has been ambulant reasonably at home. ALLERGIES: SHE IS ALLERGIC TO CIPROFLOXACIN, SULFA, LATEX, NIACIN, METRONIDAZOLE, AND NAPROXEN. MEDICATIONS: As an outpatient she has been on albuterol 2 puffs q. 6 hourly p.r.n., albuterol via nebs as directed, amlodipine 5 mg daily, famotidine 20 mg daily, levothyroxine 50 mcg daily, metoprolol succinate 25 mg twice daily, prednisone 10 mg in the morning, Crestor 10 mg daily, triamcinolone as directed, Tylenol as directed, artificial tears 1 drop OP q.i.d., calcium Carbonate 1 tablet b.i.d., Coenzyme Q10. REVIEW OF SYSTEMS: CENTRAL NERVOUS SYSTEM: Did have some headache but no blurred vision, no numbness, tingling in the extremities. RESPIRATORY: Has cough, fever with chills more shortness of breath. CARDIOVASCULAR: No chest pain, palpitation. GASTROINTESTINAL: Did have nausea but no vomiting and having diarrhea. MUSCULOSKELETAL: Does not have any acute pain involving joints. General: Does not have any rash and/or enlargement of lymph nodes negative. GENITOURINARY: No problem with urine. CONSTITUTIONAL: She has been feeling weak and tired. LABORATORY DATA: Noted today white count was 8.69, H&H 13.5/38.4, platelet was 226. Venous blood gas: pH 7.43, pCO2 40, pO2 29. Chemistry: Sodium 139, potassium 3.6, chloride 95, carbon dioxide 27, BUN 14, creatinine 0.89, random glucose of 275. LFTs unremarkable. Troponin unremarkable. UA examination unremarkable. Influenza A and B negative. Chest x-ray, chronic interstitial lung disease bilaterally, possible infiltration in the left lower lobe. EKG was in sinus rhythm, sinus tachycardic, minor ST-T wave changes but no acute findings. Rate was 110 per minute. IMPRESSION AND PLAN: 1. Sepsis secondary to possible pneumonia. The patient met the criteria of sepsis on admission, tachycardia at 121, tachypnea and also increased temperature of 38.4. She did not have any white count elevation. Chest x-ray did show probable infiltration in the left lower lobe. She was started with intravenous vancomycin, cefepime and also azithromycin. We will continue with vancomycin and cefepime for now. She may have atypical pneumonia given the sodium level is low at 129,which could be secondary to Atypical pneumonia and or intestinal loss/less intake. 2. Chronic interstitial lung disease, on long-term oxygen therapy. We will increase the prednisone dose to Solu-Medrol. A smaller dose 40 mg twice a day and continue with nebulized treatment and bronchodilators. 3. Hypertension. Blood pressures to control at this time. Continue current medications. 4. Hypothyroidism. Continue with replacement. 5. Chronic kidney disease. Does not have any issue at this time. 6. Diarrhea may be secondary to Augmentin, we will send her stool for C. diff colitis. 7. Diabetes type 2, has been taking any medications. Put her on diabetic diet and also sliding scale insulin coverage. 8. DVT prophylaxis, Lovenox. 9. Gastrointestinal prophylaxis, famotidine. CODE STATUS: She will be full code. In my clinical assessment, the beneficiary meets criteria as per CMS for 2 midnight stay in the hospital. [email or web address]
[2017-05-23] MEDS: LEVOTHYROXINE 50 MCG TAB PO SCH (06:28)
[2017-05-23] MEDS: ROSUVASTATIN CALCIUM 10 MG TAB PO SCH (08:11)
[2017-05-23] MEDS: CALCIUM 600MG + VIT D 400 IU TAB PO SCH ×2 (08:11→20:36)
[2017-05-23] MEDS: METOPROLOL SUCC 25MG EXT REL TAB PO SCH ×2 (08:12→20:37)
[2017-05-23] MEDS: ACETAMINOPHEN 325 MG TAB PO SCH ×2 (08:12→20:36)
[2017-05-23] MEDS: ENOXAPARIN 40 MG/0.4 ML SYR SQ SCH (08:13)
[2017-05-23] MEDS: INSULIN ASPART 100 UNITS/ML 3 ML PEN SC SCH ×4 (08:20→20:42)
[2017-05-23] MEDS ORDERED: CEFEPIME IV 2,000 MG in SYRINGE 7.5 ML IV SCH (10:00)
--- NOTE | 2017-05-23 10:52 | Pharmacy Progress Note ---
Pharmacy Abx Initial Consult Date of Service May 23, 2017. Pharmacy Dosing Scope Date of Consult: 05/23/17 Consultation requested by: Dr. Mckinnon Pharmacy is consulted to initiate vancomycin and Cefepime IV dosing therapy, order appropriate labs and adjust drug dose/frequency. Subjective The patient is a 82 year old female admitted on May 23, 2017 at 01:35 with sepsis possibly secondary to pnx. Objective Height (Feet): 5 Height (Inches): 9.00 Weight (Kilograms): 68.700 Vital Signs (Past 12Hrs) Vital Signs Past 12 Hours Date Time Temp Pulse Resp B/P (MAP) Pulse Ox O2 Delivery O2 Flow Rate FiO2 05/23/17 07:54 36.5 99 18 138/71 (93) 99 2.0 05/23/17 02:17 Nasal Cannula 05/23/17 02:15 96 Nasal Cannula 2.0 05/23/17 02:15 36.7 114 16 120/64 (82) 2.0 05/23/17 02:06 36.8 116 20 125/66 96 Nasal Cannula 2.0 05/23/17 01:17 36.6 121 20 159/74 96 Nasal Cannula 2.0 05/23/17 01:00 96 Nasal Cannula 2.0 05/23/17 01:00 128 20 133/72 96 Nasal Cannula 2.0 05/22/17 23:32 112 20 96 Room Air 05/22/17 23:17 108 05/22/17 22:43 38.4 116 18 157/87 92 Room Air Lab Results (24Hrs) Laboratory Tests (24 Hours) Test 05/22/17 23:13 05/22/17 23:41 White Blood Count 8.69 K/uL (4.8-10.8) Red Blood Count 4.13 M/uL (4.2-5.4) L Hemoglobin 13.5 g/dL (12.0-16.0) Hematocrit 38.4 % (37-47) Mean Corpuscular Volume 93.0 fL (80-100) Mean Corpuscular Hemoglobin 32.7 pg (25-34) Mean Corpuscular Hemoglobin Concent 35.2 g/dl (32-36) Platelet Count 226 K/uL (130-400) Mean Platelet Volume 9.7 fL (7.4-10.4) Neutrophils (%) (Auto) 72.6 % Lymphocytes (%) (Auto) 13.9 % Monocytes (%) (Auto) 11.7 % Eosinophils (%) (Auto) 1.2 % Basophils (%) (Auto) 0.3 % Neutrophils # (Auto) 6.30 K/uL (1.4-6.5) Lymphocytes # (Auto) 1.21 K/uL (1.2-3.4) Monocytes # (Auto) 1.02 K/uL (0.11-0.59) H Eosinophils # (Auto) 0.10 K/uL (0-0.5) Basophils # (Auto) 0.03 K/uL (0-0.2) Lactic Acid Level 1.5 mmol/L (0.4-2.0) Micro Results Date/Time Source Procedure Growth Status 05/22/17 23:35 Blood Blood Culture Pending Received 05/22/17 23:33 Blood Blood Culture Pending Received Risk Factors for Resistance * Immunocompromised -- Patient on autoimmune hepatitis therapy * Antimicrobial use within the last 90 days--recent failed Augmentin therapy for sinus infection (course not completed). Assessment & Plan Assessment 82 year old female admitted with sepsis secondary to probable pnx. Pt. with significant past medical history of autoimmune hepatitis, type 2 diabetes, generalized osteoarthritis, irritable bowel syndrome, acute hypothyroidism, hyperlipidemia, anxiety, Sjogren's disease and degenerative joint disease and also interstitial lung disease, apparently has been complaining of cough and flu-like symptoms and also sinus pain and pressure since last week. Pt with interstitial lung disease, so chest x-ray difficult to interpret; however LLL pnx is likely. Plan Vancomycin and Cefepime for treatment of sepsis and pnx. Vancomycin IV * Loading dose: 1500 mg (~22 mg/kg) * Maintenance dose: 1250 mg IV (~18 mg/kg) every 14 hours * Goal trough level for pnx : 15 to 20 mcg/mL * Trough/Random level ordered for 05/25 prior to 0800 dose. * Pt received a course of vancomycin during an admission 08/2016. Dose was customized to 1250mg q 14h so will begin current therapy at that dose and adjust as necessary when trough obtained. Cefepime 2gm IV q 12h for CrCl 30-60ml/min. Pharmacy will continue to follow and will adjust dose/frequency as necessary. Thank you.
[2017-05-23] MEDS: INSULIN GLARGINE SOLOSTAR 100 UNITS/ML 3 ML PEN SC SCH ×2 (13:44→20:44)
[2017-05-23] MEDS ORDERED: VANCOMYCIN IV 1,250 MG in SODIUM CHLORIDE 0.9% 250ML 250 ML IV SCH (14:00)
[2017-05-23] MEDS ORDERED: METHYLPREDNISOLONE IV 40 MG in SYRINGE 0 ML IV SCH (16:00)
--- NOTE | 2017-05-23 17:57 | Progress Note ---
Progress Note Date of Service May 23, 2017. Progress Note HOSPITALIST ATTENDING NOTE patient admitted earlier today Please see the H&P for details 20-year-old female with past medical history of autoimmune Hepatitis, type 2 diabetes, anxiety, interstitial lung disease, Sjogren's syndrome-admitted with cough/flulike symptoms sinus congestion for 1 week Patient failed outpatient antibiotic treatment On admission Met SIRS criteria-was tachycardic/tachypneic/febrile Chest x-ray: Suggestion of diffuse added density in the left lung superimposed on chronic lung disease: This could raise concern for pneumonia/aspiration or acute inflammation Patient started on empiric antibiotic with IV vancomycin/cefepime and Zithromax no wheeze , has non productive cough will D/c IV Abx change to Po Doxycycline Ordered for IV Solu-Medrol/nebulizer treatment for chronic interstitial lung disease superimposed COPD exacerbation transition to PO Prednisone 40 mg daily for 5 days pt follows with Pulmonology Dr Chavarria for interstitial lung disease pulm consult requested Speech eval requested for concern for aspiration pt reports of cough after meals , sometimes feeling of food getting stuck in throat HYPONATREMIA: Ordered for IV fluids with normal saline Repeat PRP in morning EPISODE OF DIARRHEA Patient was treated with Augmentin as an outpatient Ordered for stool for C. difficile DVT prophylaxis: Lovenox subcu CODE STATUS: Full code DISPOSITION: Will need PT OT evaluation prior to discharge Social service consulted for discharge planning
[2017-05-23] MEDS: DOXYCYCLINE HYCLATE 100 MG CAP PO SCH (20:35)
[2017-05-23] MEDS: AMLODIPINE BESYLATE 5 MG TAB PO SCH (20:38)
[2017-05-24] VITALS: O2SAT 93
[2017-05-24] MEDS: LEVOTHYROXINE 50 MCG TAB PO SCH (06:37)
[2017-05-24 07:24] VITALS: BP 138/69; PULSE 82; TEMP 36.7; O2SAT 100
[2017-05-24 07:32] LABS: CREATININE 0.84 mg/dl (0.60-1.20)
[2017-05-24] MEDS: CALCIUM 600MG + VIT D 400 IU TAB PO SCH ×2 (08:06→20:13)
[2017-05-24] MEDS: METOPROLOL SUCC 25MG EXT REL TAB PO SCH ×2 (08:06→20:13)
[2017-05-24] MEDS: DOXYCYCLINE HYCLATE 100 MG CAP PO SCH (08:07)
[2017-05-24] MEDS: ACETAMINOPHEN 325 MG TAB PO SCH ×2 (08:08→20:13)
[2017-05-24] MEDS: ROSUVASTATIN CALCIUM 10 MG TAB PO SCH (08:08)
[2017-05-24] MEDS: INSULIN GLARGINE SOLOSTAR 100 UNITS/ML 3 ML PEN SC SCH ×2 (08:15→20:37)
[2017-05-24] MEDS: INSULIN ASPART 100 UNITS/ML 3 ML PEN SC SCH ×4 (08:15→20:36)
[2017-05-24] MEDS: ENOXAPARIN 40 MG/0.4 ML SYR SQ SCH (08:17)
--- NOTE | 2017-05-24 10:54 | Progress Note ---
Internal Med Progress Note Date of Service: May 24, 2017. Provider Documentation: SUBJECTIVE: Patient mention of having cough with productive sputum after breakfast today Was feeling fine yesterday After meals started to have similar symptoms that brought her to the hospital No complaint of shortness of breath, no hypoxia No fever or chills OBJECTIVE: Vital Signs-as noted below Exam: General-very pleasant elderly female no sign of distress Eyes-sclera nonicteric, pupils equal reactive to light extraocular muscle intact ENT-moist oral mucosa Neck- Lungs-diminished, positive rales at bases Heart-regular S1-S2,no lower extremity edema,no JVD Abdomen-soft nontender Extremities-no rash or deformity Neuro-alert awake oriented 3, no focal neurological deficit Lab data as noted below. ASSESSMENT & PLAN: RECURRENT PNEUMONIA POSSIBLE SECONDARY TO ASPIRATION: Patient reports food getting stuck in throat, having coughing spell while eating High risk for esophageal dysmotility-history of Sjogren's disease. Chest x-ray: 1. Suggestion of diffuse added density in the left lung superimposed on chronic lung disease. This could raise concern for pneumonia, aspiration, or acute inflammation. Speech pathology evaluation requested-appreciate input Ordered for slippery soft dental diet Aspiration and GERD precautions Empiric antibiotic with IV Unasyn Scheduled for barium swallow and video fluoroscopy swallow tomorrow INTERSTITIAL LUNG DISEASE : Respiratory status No hypoxia IV steroids discontinued Continue p.o. prednisone 40 mg daily for 5 days continue nebulizer treatment pulmonology consulted-appreciate input HYPERGLYCEMIA/TYPE 2 DIABETES Possible secondary to steroid-induced Hemoglobin A1c~7 Insulin sliding scale Added basal Lantus HYPONATREMIA: corrected with IVF EPISODE OF DIARRHEA no further episode of loose stool CODE STATUS: Full code DVT PROPHYLAXIS Subcu Lovenox DISPOSITION Expect to be discharged home when medically stable Vital Signs: Date Time Temp Pulse Resp B/P (MAP) Pulse Ox O2 Delivery O2 Flow Rate FiO2 05/25/17 11:39 158/83 (108) 05/25/17 07:49 36.3 79 18 164/78 (106) 95 Room Air 05/25/17 07:45 Room Air 05/25/17 00:20 Room Air 05/24/17 22:59 36.6 84 18 147/82 (103) 97 Room Air 05/24/17 16:00 Room Air 05/24/17 15:22 36.5 98 18 158/77 (104) 93 Room Air Lab Results: Results Past 24 Hours Test 05/24/17 16:31 05/24/17 20:05 05/25/17 01:39 05/25/17 01:55 Range/Units Bedside Glucose 86 174 61 83 70-90 mg/dl Test 05/25/17 06:02 05/25/17 06:10 05/25/17 06:32 05/25/17 07:34 Range/Units Bedside Glucose 69 136 78 70-90 mg/dl Creatinine 0.81 0.60-1.20 mg/dl Est Creatinine Clear Calc Drug Dose 57.9 ml/min Estimated GFR () 79.5 Estimated GFR (Non- 68.6 Test 05/25/17 11:25 Range/Units Bedside Glucose 96 70-90 mg/dl
[2017-05-24] MEDS ORDERED: AMPICILLIN SOD/SULBACTAM SOD 3 GM VIAL IV STA (11:09)
[2017-05-24] MEDS: AMPICILLIN/SULBACTAM SOD INJ 1,500 MG in SODIUM CHLORIDE 0.9% 100ML 100 ML IV SCH ×3 (11:36→23:06)
[2017-05-24 12:47] LABS: CALCIUM 9.4 mg/dl (8.5-10.1); CREATININE 0.97 mg/dl (0.60-1.20); POTASSIUM 3.8 mmol/L (3.5-5.1)
[2017-05-24 15:22] VITALS: BP 158/77; PULSE 98; TEMP 36.5; O2SAT 93
--- NOTE | 2017-05-24 15:41 | Pulmonary Consultation ---
History General Date of Service: May 24, 2017. Stated Complaint: Pneumonia,Sepsis HPI Dear Dr. Schilling: Thank you for your kind referral of Mrs. Kunz to pulmonary service. This is 82-year-old female with a history of Sjogren's syndrome, interstitial lung disease, has been followed by Dr. Leonardo in an outpatient setting. The patient has been doing well up until the past few days when she started having increasing cough. The patient did have a fever and her cough was nonproductive. No hemoptysis or sputum production was reported. The patient used her nebulizer treatment with albuterol at home but it did not help her. 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 The patient did not have any chest pain prior to her presentation. The patient met the criteria for sepsis, and she and the being intubated with diagnosis of sepsis and started empirically on antibiotics with vancomycin, cefepime. She was slightly hyponatremic. Due to her history of interstitial lung disease, I was asked to evaluate the patient. When I evaluated the patient, she was on room air, speaking in full sentences, she denies any sputum production but she does have occasional cough, no heartburn was reported. No orthopnea, no dyspnea on exertion. She denies any sick contact. No abdominal pain no change in bowel movements or urine habits, no increased swelling in her lower extremities. The rest of her review of system was unremarkable. As mentioned above, the patient is a lifetime non-smoker, does not have any industrial exposure, she has been treated in the past with Plaquenil which she could not tolerate as well as Imuran which resulted also opportunistic infection in her case. Currently she is only on 10 mg of prednisone for suppressive therapy and a daily basis which she has been on it for the past 3 years without any complications. She has been followed by my colleague Dr. Leonardo in the clinic. Historian: patient, other (Records) Review of Systems Constitutional: reports: no symptoms Eyes: reports: no symptoms ENT: reports: no symptoms Cardiovascular: reports: no symptoms Respiratory: reports: cough Gastrointestinal: reports: no symptoms Genitourinary - Female: reports: no symptoms Musculoskeletal: reports: no symptoms Neurologic: reports: no symptoms Psychiatric: reports: no symptoms Allergic / Immunologic: no symptoms Past Medical History Past Medical History: Sjogren's syndrome, irritable bowel syndrome, interstitial lung disease. Family History Bladder cancer BROTHER COPD (chronic obstructive pulmonary disease) BROTHER SISTER Dementia FATHER Heart disease MOTHER Social History Hx Tobacco Use In Past Year?: No Smoking Status: Never Smoker Housing status: lives with family Immunizations History of Influenza Vaccine: Yes Influenza Vaccine Date: Jan 05, 2016 History of Tetanus Vaccine?: Yes Tetanus Immunization Date: Apr 27, 2007 History of Pneumococcal: Yes Pneumococcal Date: Mar 13, 2016 History of MDRO History of MDRO: No Allergies Coded Allergies: Sulfamethoxazole w/Trimethoprim (Unverified Allergy, Severe, edema face/ lips/tongue, 05/23/17) Latex1 -Allergic Contact Dermititis (Unverified Allergy, Mild, LOCAL SKIN REACTION, 05/23/17) Niacin (Unverified Allergy, Mild, RASH, 05/23/17) Ciprofloxacin (Verified Adverse Reaction, Intermediate, GI SYMPTOMS, ) Metronidazole (Verified Adverse Reaction, Intermediate, GI SYMPTOMS, ) Naproxen (Unverified Adverse Reaction, Intermediate, BURNING STOMACH, ) Current Medications Reported Home Medications Medications Dose Route/Sig Max Daily Dose Days Date Category Dose Instructions Triamcinolone Acetonide (Triamcinolone Acet) 45 Appln/15 Gm Cr 1 Appln TOP BID PRN 04/29/17 Reported Coq10 (Coenzyme Q10 (Ubidecarenone)) 200 Mg Cap 1 Cap PO DAILY AT NOON 04/29/17 Reported Tylenol Arthitis Ext Rel (Acetaminophen) 650 Mg Ertab 2 Tab PO BID 04/29/17 Reported Calcium + D (Calcium Carbonate-Vitamin D) 1 Tab Tab 1 Tab PO BID 01/21/17 Reported Pepcid (Famotidine) 20 Mg Tab 20 Mg PO DAILY PRN 01/21/17 Reported Artificial Tears (Artificial Tear Solution) 1 Sherin Sherin 1 Drops OP QID PRN 01/21/17 Reported Prednisone 5 Mg Tab 10 Mg PO QAM 01/21/17 Reported Levothyroxine Sodium 50 Mcg Tab 1 Tab PO QAM 01/21/17 Reported Toprol Xl (Metoprolol Succinate) 25 Mg Tab 1 Dose PO BID 01/21/17 Reported 2 TAB IN AM 1 TAB IN PM Crestor (Rosuvastatin Calcium) 10 Mg Tab 10 Mg PO DAILY AT NOON 01/21/17 Reported Norvasc (Amlodipine Besylate) 5 Mg Tab 5 Mg PO QPM 01/21/17 Reported Proventil 0.083% 2.5MG/3ML (Albuterol Sulf) 2.5 Mg/3 Ml Nebu 2.5 Mg INH Q4H PRN 09/14/16 Reported Ventolin Hfa (Albuterol) 200 Puffs/28002 Mcg Aers 2 Puffs INH Q6H PRN 09/14/16 Reported Physical Physical Exam Vital Signs: Date Time Temp Pulse Resp B/P (MAP) Pulse Ox O2 Delivery O2 Flow Rate FiO2 05/24/17 07:33 Nasal Cannula 2.0 05/24/17 07:24 36.7 82 16 138/69 (92) 100 2.0 05/24/17 00:00 93 Room Air 05/23/17 23:13 36.6 95 20 156/75 (102) 91 Room Air 05/23/17 20:30 92 155/78 (103) 93 Room Air 05/23/17 20:00 93 Room Air 05/23/17 16:00 Room Air 05/23/17 15:43 36.6 88 18 125/66 (85) 91 Room Air General Appearance: WD/WN, NO APPARENT DISTRESS Eyes: PERRLA, EOMI ENT: NORMAL MOUTH EXAM, NORMAL THROAT EXAM Neck: TRACHEA MIDLINE Respiratory: other (Faint basilar crackles bilaterally.) Cardiovasular: NORMAL S1S2, NO M/G/R, NO MURMUR Abdomen: NON TENDER, NO GUARDING Lower Extremities: NO EDEMA Neuro: ALERT, ORIENTED x 3, NORMAL MOTOR EXAM Psychiatric: NORMAL AFFECT Diagnostics Labs Results Past 24 Hours Test 05/23/17 16:27 05/23/17 20:02 05/24/17 06:36 05/24/17 07:31 Range/Units Bedside Glucose 182 134 130 70-90 mg/dl Creatinine 0.84 0.60-1.20 mg/dl Est Creatinine Clear Calc Drug Dose 55.9 ml/min Estimated GFR () 76.1 Estimated GFR (Non- 65.6 Test 05/24/17 11:24 05/24/17 11:29 Range/Units Sodium Level 134 136-145 mmol/L Potassium Level 3.8 3.5-5.1 mmol/L Chloride Level 98 98-107 mmol/L Carbon Dioxide Level 30 21-32 mmol/L Anion Gap 6.0 3-11 mmol/L Blood Urea Nitrogen 23 7-18 mg/dl Creatinine 0.97 0.60-1.20 mg/dl Est Creatinine Clear Calc Drug Dose 48.4 ml/min Estimated GFR () 63.9 Estimated GFR (Non- 55.2 BUN/Creatinine Ratio 23.8 10-20 Random Glucose 74 70-99 mg/dl Calcium Level 9.4 8.5-10.1 mg/dl Bedside Glucose 83 70-90 mg/dl Microbiology Results 05/23/17 MRSA DNA Surveillance Screen - Final, Complete Specimen Negative for MRSA by DNA Probe Diagnostic Radiology Chest x-ray and previous CAT scan both were reviewed which showed interstitial changes chronic, appears to be mainly in the periphery, does not meet the criteria for UIP. Chest x-ray today on admission revealed no evidence of infiltrate. Cardiomegaly was noted. Chronic changes remains the same. Impression Assessment and Plan 1. 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 I did not see any evidence at this point on previous CAT scan. 2. The patient admitted with diagnosis of sepsis, I did not see any evidence of pneumonia in this patient chest x-ray. 3. Irritable bowel syndrome, she denies any evidence of inflammatory bowel disease, recently had colonoscopy with evidence of diverticulosis. Her GI complaint complicated by diverticulitis due to Imuran and Plaquenil. Plan: 1. Agree with escalating the dose of prednisone to 40 mg p.o. daily. 2. May downgrade the antibiotics, I do not see any evidence of pneumonia at this point. 3. Continue with bronchodilators as the patient being on it with albuterol nebulized. 4. Follow-up with Dr. leonardo. 5. No further intervention needed from pulmonary standpoint. Thank you for your kind referral, will follow.
[2017-05-24] MEDS: AMLODIPINE BESYLATE 5 MG TAB PO SCH (20:13)
[2017-05-24 22:59] VITALS: BP 147/82; PULSE 84; TEMP 36.6; O2SAT 97
[2017-05-25] MEDS: AMPICILLIN/SULBACTAM SOD INJ 1,500 MG in SODIUM CHLORIDE 0.9% 100ML 100 ML IV SCH ×2 (05:58→11:35)
[2017-05-25 06:43] LABS: HEMOGLOBIN A1C 7.3 % (4.5-5.6)
[2017-05-25 07:04] LABS: CREATININE 0.81 mg/dl (0.60-1.20)
[2017-05-25] MEDS ORDERED: VANCOMYCIN TROUGH ONE (07:30)
[2017-05-25 07:49] VITALS: BP 164/78; PULSE 79; TEMP 36.3; O2SAT 95
[2017-05-25] MEDS: INSULIN ASPART 100 UNITS/ML 3 ML PEN SC SCH ×3 (08:10→17:00)
[2017-05-25] MEDS: INSULIN GLARGINE SOLOSTAR 100 UNITS/ML 3 ML PEN SC SCH (08:11)
[2017-05-25] MEDS ORDERED: D5W AND LACTATED RINGERS 1,000 ML IV SCH (08:30)
[2017-05-25] MEDS: ENOXAPARIN 40 MG/0.4 ML SYR SQ SCH (08:49)
[2017-05-25] MEDS: METOPROLOL SUCC 25MG EXT REL TAB PO SCH (10:57)
[2017-05-25] MEDS: LEVOTHYROXINE 50 MCG TAB PO SCH (10:58)
[2017-05-25 11:39] VITALS: BP 158/83
--- NOTE | 2017-05-25 11:54 | Pulmonology Progress Note ---
Pulmonary Progress Note Date of Service May 25, 2017. Attending Dr. Chavarria Subjective Patient notes she is improved via her respiratory status but does note JIMENEZ Objective Patient able to sit up in bed and have a conversation with no signs of respiratory distress/insufficiency VS: Stable on RA RESP: Velcro rales CARD: S1S2 RRR, no m/r/g ABD: +BS/Soft/Non-tender AXT: no c/c/e PFTs 09/12/2012 01/03/2014 11/14/2014 11/21/2015 08/21/20162015- 2016 FEV1 1.84/74% 1.52/62% 1.67/69% 1.46/61% 1.44/60% +1.4% FVC 2.12/63% 1.82/54% 1.92/58% 1.68/51% 1.69/51% -0.6% TLC 4.98/86% 3.55/62% 2.78/48% 3.02/52% 2.78/40% -8.6% DLCO 25.54/55% 25.40/35% 25.26/39% 25.02/47% 24.91/46% -0.4%. PmHx: Sjgren, ILD, chronic rhinitis/vasomotor, immunosuppressed on prednisone baseline 10mg Outpatient oxygen: 95% on room air VB.43/40 Random glucose this morning 61 Urine osmolality low at 152 MRSA nasal swab negative Blood culture negative 2 Chest x-ray 05/22/2017: Diffuse bilateral infiltrate of process with possible increased opacification left lower lobe Barium swallow/video swallow pending Pending Ampicillin/sulbactam every 6 Prednisone 40 mg daily Assessment & Plan 82y/o female admitted for JIMENEZ, possible pna/aspiration and chronic immunosuppressed state secondary to chronic prednisone from Sjgren 1) JIMENEZ: Patient appears to be improving and I will drop her steroids to 20mg daily at this time and as she notes JIMENEZ order a 6 min walk study (no previous study for comparison). 2) Aspiration: Agree with work-up as the patient is noted to have Sjgren. It is a good sign that she has no hx of aspiration but increased risk of esophageal dysmotility. 3) Cough: High likelihood associated with chronic rhinitis. 4) ILD: Patient will require yearly out patient PFT for monitoring. Sjogren syndrome with associated ILD: Sjogren syndrome is complicated noted the associated with 5 different types of interstitial lung disease such as: NSIP, L IP, UIP, GROCERY WORKER and follicular bronchiolitis. The patient's CT imaging is not consistent with any specific pattern and will continue to clinically monitor. Should also note evaluation of the patient's underlying ILD via surgical lung biopsy is not recommended when associated with Sjogren syndrome. The treatment of the underlying Sjogren's disease is recommended to help treat any of the underlying interstitial lung changes. Data Medications: Current Inpatient Medications Medications (Trade) Dose Ordered Sig/Nataly Route Start Time Stop Time Status Last Admin Dose Admin Enoxaparin Sodium (Lovenox Inj) 40 mg Q24H SQ 05/23/17 09:00 06/22/17 08:59 05/25/17 08:49 40 MG Ondansetron HCl (Zofran Inj) 4 mg Q6H PRN IV 05/23/17 01:45 06/22/17 01:44 Albuterol (Ventolin Hfa Inhaler) 2 puffs Q6H PRN INH 05/23/17 01:45 06/22/17 01:44 Albuterol Sulfate (Ventolin 0.083% 2.5MG/3ML Neb) 2.5 mg Q4H PRN INH 05/23/17 01:45 06/22/17 01:44 Amlodipine Besylate (Norvasc Tab) 5 mg QPM PO 05/23/17 21:00 06/22/17 20:59 05/24/17 20:13 5 MG Famotidine (Pepcid Tab) 20 mg DAILY PRN PO 05/23/17 01:45 06/22/17 01:44 Levothyroxine Sodium (Synthroid Tab) 50 mcg DAILYBB PO 05/23/17 06:30 06/22/17 06:29 05/25/17 10:58 50 MCG Metoprolol Succinate (Toprol Xl Tab) 25 mg PM PO 05/23/17 21:00 06/22/17 20:59 05/24/17 20:13 25 MG Rosuvastatin Calcium (Crestor Tab) 10 mg DAILY PO 05/23/17 09:00 06/22/17 08:59 05/24/17 08:08 10 MG Triamcinolone Acetonide (Kenalog 0.5% Crm) 1 appln BID PRN EXT 05/23/17 01:45 06/22/17 01:44 Acetaminophen (Tylenol Tab) 650 mg BID PO 05/23/17 09:00 06/22/17 08:59 05/24/17 20:13 650 MG Artificial Tears (Artificial Tears) 1 drops QID PRN OP 05/23/17 01:45 06/22/17 01:44 Calcium/Vitamin D (Caltrate Plus Tab) 1 tab BID PO 05/23/17 09:00 06/22/17 08:59 05/24/17 20:13 1 TAB Insulin Aspart (novoLOG ASPART) SLIDING SCALE G... ACHS SC 05/23/17 06:30 06/22/17 06:59 05/24/17 20:36 1 UNITS Metoprolol Succinate (Toprol Xl Tab) 50 mg QAM PO 05/23/17 09:00 06/22/17 08:59 05/25/17 10:57 50 MG Glucose (Glucose 40% Gel) 15-30 GRAMS 15 GRAMS... UD PRN PO 05/23/17 02:45 06/22/17 02:44 Glucose (Glucose Chew Tab) 4-8 Tablets 4 Tabl... UD PRN PO 05/23/17 02:45 06/22/17 02:44 Dextrose (Dextrose 50% 50ML Syringe) 25-50ML OF 50% DW IV FOR... UD PRN IV 05/23/17 02:45 06/22/17 02:44 05/25/17 06:18 25 ML Glucagon (Glucagon Inj) 1 mg UD PRN SQ 05/23/17 02:45 06/22/17 02:44 Prednisone (PredniSONE TAB) 40 mg DAILY PO 05/24/17 09:00 06/23/17 08:59 05/25/17 10:58 40 MG Ampicillin Sodium/ Sulbactam Sodium 1500 mg/Sodium Chloride 104 ml @ 200 mls/hr Q6H IV 05/24/17 11:30 05/31/17 11:29 05/25/17 11:35 200 MLS/HR Dextrose/Lactated Ringer's 1,000 ml @ 50 mls/hr Q20H IV 05/25/17 08:30 06/24/17 08:29 05/25/17 08:46 50 MLS/HR Vital Signs: Date Time Temp Pulse Resp B/P (MAP) Pulse Ox O2 Delivery O2 Flow Rate FiO2 05/25/17 11:39 158/83 (108) 05/25/17 07:49 36.3 79 18 164/78 (106) 95 Room Air 05/25/17 07:45 Room Air 05/25/17 00:20 Room Air 05/24/17 22:59 36.6 84 18 147/82 (103) 97 Room Air 05/24/17 16:00 Room Air 05/24/17 15:22 36.5 98 18 158/77 (104) 93 Room Air Laboratory Results: Last 24 Hours Test 05/24/17 16:31 05/24/17 20:05 05/25/17 01:39 05/25/17 01:55 Bedside Glucose 86 mg/dl 174 mg/dl 61 mg/dl 83 mg/dl Test 05/25/17 06:02 05/25/17 06:10 05/25/17 06:32 05/25/17 07:34 Bedside Glucose 69 mg/dl 136 mg/dl 78 mg/dl Creatinine 0.81 mg/dl Est Creatinine Clear Calc Drug Dose 57.9 ml/min Estimated GFR () 79.5 Estimated GFR (Non- 68.6 Test 05/25/17 11:25 Bedside Glucose 96 mg/dl
--- NOTE | 2017-05-25 14:00 | Discharge Instructions ---
Discharge Instructions Date of Service May 25, 2017. Admission Reason for Admission: Pneumonia,Sepsis Discharge Discharge Diagnosis / Problem: DYSPHAGIA /ASPIRATION /INTERSTITIAL LUNG DISEASE Discharge Goals Goal(s): Decrease discomfort, Improve disease control, Diagnostic testing, Therapeutic intervention Activity Recommendations Activity Limitations: resume your previous activity . Instructions / Follow-Up Instructions / Follow-Up FOLLOW UP WITH FAMILY PHYSICIAN IN A WEEK , PLEASE CALL TO SCHEDULE APPOINTMENT Current Hospital Diet Patient's current hospital diet: Diabetes Type 2 Diet Discharge Diet Recommended Diet: Diabetes Type 2 Diet (1. Slippery dental soft diet. Avoid foods that are dry, thick, pasty, ) Pending Studies Studies pending at discharge: no Laboratory Results Hemoglobin A1c Test 05/24/17 06:36 Range/Units Estimated Average Glucose 163 mg/dl Hemoglobin A1c 7.3 H 4.5-5.6 % Medical Emergencies . Who to Call and When: Medical Emergencies: If at any time you feel your situation is an emergency, please call 911 immediately. . Non-Emergent Contact Non-Emergency issues call your: Primary Care Provider . . "Provider Documentation" section prepared by Mirela Schilling. .
--- NOTE | 2017-05-25 14:49 | DIAGNOSTIC IMAGING REPORT ---
(BARIUM SWALLOW) ESOPHAGUS CLINICAL HISTORY: 82 years-old Female presenting with aspiration. TECHNIQUE: A standard air contrast barium esophagram is performed. Multiple spot images of the esophagus are acquired both upright and prone. COMPARISON: None. FINDINGS: The patient was able to ingest barium and the barium pill without difficulty. Normal mucosal pattern. No evidence of intrinsic or extrinsic mass lesion. No aspiration observed. Tertiary contractions indicate dysmotility. The gastroesophageal junction distended normally. No gastroesophageal reflux could be elicited despite provocative maneuvers. Fluoroscopy dosage (mGy): Not available. Fluoroscopy time: 1.1 minutes. Number of fluoroscopic spot images: 25. IMPRESSION: 1. No evidence of aspiration. 2. 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 Electronically signed by: Inocente Lamb M.D. 05/25/2017 2:48 PM Dictated Date/Time: 05/25/2017 2:45 PM
[2017-05-25 15:40] VITALS: BP 158/83; PULSE 79; TEMP 36.3; O2SAT 95
[2017-05-25 15:48] VITALS: BP 154/90; PULSE 108; TEMP 36.5; O2SAT 90
--- NOTE | 2017-05-25 17:58 | Discharge Summary ---
Discharge Summary Date of Service May 25, 2017. Discharge Summary Admission Date: May 23, 2017 at 01:35 Discharge Date: May 25, 2017 Discharge Disposition: Home Principal Diagnosis: DYSPHAGIA /ASPIRATION /INTERSTITIAL LUNG DISEASE Procedures: Barium swallow Video fluoroscopy swallow evaluation Consultations: Pulmonology Speech therapy Medication Reconciliation New Medications: Omeprazole (Omeprazole) 20 Mg Tab 1 TAB PO DAILY for 30 Days, #30 TAB 1 Refill Continued Medications: Acetaminophen (Tylenol Arthitis Ext Rel) 650 Mg Ertab 2 TAB PO BID, CAP Albuterol Hfa (Ventolin Hfa) 200 Puffs/11621 Mcg Aers 2 PUFFS INH Q6H PRN for SOB/Wheezing Albuterol Sulf (Proventil 0.083% 2.5MG/3ML) 2.5 Mg/3 Ml Nebu 2.5 MG INH Q4H PRN for SOB/Wheezing, EA Amlodipine (Norvasc) 5 Mg Tab 5 MG PO QPM, TAB Artificial Tear Solution (Artificial Tears) 1 Sherin Sherin 1 DROPS OP QID PRN for PRN, ML 5 Refills Calcium Carbonate-Vitamin D (Calcium + D) 1 Tab Tab 1 TAB PO BID Coenzyme Q10 (Ubidecarenone) (Coq10) 200 Mg Cap 1 CAP PO DAILY AT NOON Famotidine (Pepcid) 20 Mg Tab 20 MG PO DAILY PRN for Indigestion, TAB Levothyroxine Sodium (Levothyroxine Sodium) 50 Mcg Tab 1 TAB PO QAM, TAB 3 Refills Metoprolol Succinate (Toprol Xl) 25 Mg Tab 1 DOSE PO BID, TAB 2 TAB IN AM 1 TAB IN PM Rosuvastatin Calcium (Crestor) 10 Mg Tab 10 MG PO DAILY AT NOON, TAB Triamcinolone Acet (Triamcinolone Acetonide) 45 Appln/15 Gm Cr 1 APPLN TOP BID PRN for PRN, GM 1 Refill Discontinued Medications: Prednisone (Prednisone) 5 Mg Tab 10 MG PO QAM, TAB Admission Information HPI (per Admitting provider): DATE OF ADMISSION: 05/23/2017 PRIMARY CARE PHYSICIAN: Dr. Mohamud. CHIEF COMPLAINT: Shortness of breath, cough, fever and headache for the last 2-3 days. HISTORY OF PRESENT COMPLAINT: She is an 82-year-old female with significant past medical history of autoimmune hepatitis, type 2 diabetes, generalized osteoarthritis, irritable bowel syndrome, acute hypothyroidism, hyperlipidemia, anxiety, Sjogren's disease and degenerative joint disease and also interstitial lung disease, apparently has been complaining of cough and flu-like symptoms and also sinus pain and pressure since last week. She was seen in the clinic and was given Augmentin for possible maxillary sinusitis. She has not finished the course of antibiotic. She complains to have some diarrhea today about 2 times and also the cough is productive of thick whitish phlegm and feeling of fever and chills. She does have cough and more shortness of breath. Also, she has headache and facial pain in both sides. She did have nausea, but no vomiting. In the ER, she was noted to have tachycardia with a pulse rate of 121, tachypnea and also a temperature of 38.4 and her chest x-ray did show probable infiltration which is very difficult to isolate due to chronic pulmonary fibrosis, but from that point, she received vancomycin and cefepime and also azithromycin and advised for admission. Her white count was unremarkable. PAST MEDICAL HISTORY: Significant for autoimmune hepatitis, treated with steroid type 2 diabetes, allergic rhinitis, chronic maxillary sinusitis, esophageal reflux, hypothyroidism, interstitial lung disease, Sjogren's disease, degenerative disc disease, chronic kidney disease stage III, hypertension. PAST SURGICAL HISTORY: Significant for uterine biopsy in the past. Liver biopsy secondary to autoimmune hepatitis and ligation of the oviduct. FAMILY HISTORY: Brother has diabetes and also another brother has bladder cancer. Mother did have some eye problem, hypertension. Brother does have lung disorder as well. Brother and sister have thyroid disease. SOCIAL HISTORY: She is . She never smoked or used any smokeless tobacco. She lives with her significant other and she has been ambulant reasonably at home. ALLERGIES: SHE IS ALLERGIC TO CIPROFLOXACIN, SULFA, LATEX, NIACIN, METRONIDAZOLE, AND NAPROXEN. MEDICATIONS: As an outpatient she has been on albuterol 2 puffs q. 6 hourly p.r.n., albuterol via nebs as directed, amlodipine 5 mg daily, famotidine 20 mg daily, levothyroxine 50 mcg daily, metoprolol succinate 25 mg twice daily, prednisone 10 mg in the morning, Crestor 10 mg daily, triamcinolone as directed, Tylenol as directed, artificial tears 1 drop OP q.i.d., calcium Carbonate 1 tablet b.i.d., Coenzyme Q10. Physical Exam (per Admitting): REVIEW OF SYSTEMS: CENTRAL NERVOUS SYSTEM: Did have some headache but no blurred vision, no numbness, tingling in the extremities. RESPIRATORY: Has cough, fever with chills more shortness of breath. CARDIOVASCULAR: No chest pain, palpitation. GASTROINTESTINAL: Did have nausea but no vomiting and having diarrhea. MUSCULOSKELETAL: Does not have any acute pain involving joints. General: Does not have any rash and/or enlargement of lymph nodes negative. GENITOURINARY: No problem with urine. CONSTITUTIONAL: She has been feeling weak and tired. Hospital Course No complaint of cough or shortness of breath Had barium swallow done today No overt aspiration noted Patient had a delayed oral esophageal clearance Diet change to slippery/soft dental Stable to be discharged home today PHYSICAL EXAM General-very pleasant elderly female no sign of distress Eyes-sclera nonicteric, pupils equal reactive to light extraocular muscle intact ENT-moist oral mucosa Neck- Lungs-diminished, positive rales at bases Heart-regular S1-S2,no lower extremity edema,no JVD Abdomen-soft nontender Extremities-no rash or deformity Neuro-alert awake oriented 3, no focal neurological deficit RECURRENT PNEUMONIA POSSIBLE SECONDARY TO ASPIRATION: Patient reports food getting stuck in throat, having coughing spell while eating High risk for esophageal dysmotility-history of Sjogren's disease. Chest x-ray: 1. Suggestion of diffuse added density in the left lung superimposed on chronic lung disease. This could raise concern for pneumonia, aspiration, or acute inflammation. Speech pathology evaluation requested-appreciate input Ordered for slippery soft dental diet Aspiration and GERD precautions Video swallow study today shows no evidence of overt aspiration Delayed clearance of oropharyngeal phase Diet recommend to sleep very/soft dental with aspiration and GERD precaution INTERSTITIAL LUNG DISEASE : Respiratory status No hypoxia Steroid discontinued continue nebulizer treatment pulmonology consulted-appreciate input HYPERGLYCEMIA/TYPE 2 DIABETES Resolved after discontinuation of steroids Hemoglobin A1c~7 Insulin sliding scale CODE STATUS: Full code DVT PROPHYLAXIS Subcu Lovenox DISPOSITION Stable to be discharged home today Total time spent on discharge = 40 mins This includes examination of the patient, discharge planning, medication reconciliation, and communication with other providers. Discharge Instructions Discharge Instructions Date of Service May 25, 2017. Admission Reason for Admission: Pneumonia,Sepsis Discharge Discharge Diagnosis / Problem: DYSPHAGIA /ASPIRATION /INTERSTITIAL LUNG DISEASE Discharge Goals Goal(s): Decrease discomfort, Improve disease control, Diagnostic testing, Therapeutic intervention Activity Recommendations Activity Limitations: resume your previous activity . Instructions / Follow-Up Instructions / Follow-Up FOLLOW UP WITH FAMILY PHYSICIAN IN A WEEK , PLEASE CALL TO SCHEDULE APPOINTMENT Current Hospital Diet Patient's current hospital diet: Diabetes Type 2 Diet Discharge Diet Recommended Diet: Diabetes Type 2 Diet (1. Slippery dental soft diet. Avoid foods that are dry, thick, pasty, ) Pending Studies Studies pending at discharge: no Laboratory Results Hemoglobin A1c Test 05/24/17 06:36 Range/Units Estimated Average Glucose 163 mg/dl Hemoglobin A1c 7.3 H 4.5-5.6 % Medical Emergencies . Who to Call and When: Medical Emergencies: If at any time you feel your situation is an emergency, please call 911 immediately. . Non-Emergent Contact Non-Emergency issues call your: Primary Care Provider . . "Provider Documentation" section prepared by Mirela Schilling. .
[2017-05-25] MEDS ORDERED: OMEP20TA PO (18:28)
--- NOTE | 2017-05-28 08:03 | EDITING REQUIRED CODING QUERY ---
To promote full compliance with coding requirements relating to patient care, provider participation is requested in all cases of housekeeping staff uncertainty. Please assist us with the question(s) below: Coding Question(s): The diagnosis(es) below was documented in the H&P then subsequently fell off all further documentation. Please indicate if it is still a possible diagnosis or ruled out. Physician's Response(s): SEPSIS ( x) Diagnosed and POA ( ) Diagnosed and not POA ( ) Ruled out ( ) Other (please specify)
== END 2017-05-25 17:33 | disposition home or self-care (01) | DRG 871 ==
LOC: C.EDB 22:40 → C.MS2W 05-23 01:35 → ENRESERV 05-23 02:01
PROVIDERS: ADMIT Internal Medicine; ATTEND Hospitalist
DX: A41.9 Sepsis, unspecified organism (principal); J69.0 Pneumonitis due to inhalation of food and vomit; E87.1 Hypo-osmolality and hyponatremia; J84.9 Interstitial pulmonary disease, unspecified; Z99.81 Dependence on supplemental oxygen; M35.00 Sjogren syndrome, unspecified; R19.7 Diarrhea, unspecified; T36.0X5A Adverse effect of penicillins, initial encounter; J32.0 Chronic maxillary sinusitis; E11.65 Type 2 diabetes mellitus with hyperglycemia; I12.9 Hypertensive chronic kidney disease with stage 1 through stage 4 chronic kidney disease, or unspecified chronic kidney disease; E11.22 Type 2 diabetes mellitus with diabetic chronic kidney disease; N18.3 Chronic kidney disease, stage 3 (moderate); E03.9 Hypothyroidism, unspecified; K21.9 Gastro-esophageal reflux disease without esophagitis; E78.5 Hyperlipidemia, unspecified; K75.4 Autoimmune hepatitis; M19.90 Unspecified osteoarthritis, unspecified site; Z98.890 Other specified postprocedural states; Z79.52 Long term (current) use of systemic steroids; Z79.899 Other long term (current) drug therapy; Z91.040 Latex allergy status; Z88.1 Allergy status to other antibiotic agents; Z88.2 Allergy status to sulfonamides; Z88.6 Allergy status to analgesic agent; Z88.8 Allergy status to other drugs, medicaments and biological substances; Z82.5 Family history of asthma and other chronic lower respiratory diseases; Z83.3 Family history of diabetes mellitus; Z82.49 Family history of ischemic heart disease and other diseases of the circulatory system; Z83.49 Family history of other endocrine, nutritional and metabolic diseases; Z83.518 Family history of other specified eye disorder; Z80.52 Family history of malignant neoplasm of bladder

== ENCOUNTER → 2017-06-08 | Outpatient (CLI) | payer OTHER ==
[~2017-06-08] MED LIST changes: +OMEP20TA PO; -PRED-301 PO
== END | disposition home or self-care (01) ==
LOC: C.RC 13:43
PROVIDERS: ATTEND Physician Assistant
DX: J84.9 Interstitial pulmonary disease, unspecified (principal)

== ENCOUNTER → 2017-07-08 | Outpatient (CLI) | payer OTHER ==
--- NOTE | 2017-07-08 14:25 | DIAGNOSTIC IMAGING REPORT ---
CHEST 2 VIEWS ROUTINE CLINICAL HISTORY: 82 years-old Female presenting with R91.8 Lung infiltrate to be done 3 weeks after 06/01/[id number]. TECHNIQUE: PA and lateral views of the chest were obtained. COMPARISON: 06/01/2017. FINDINGS: Atherosclerosis of the aortic arch. Cardiac silhouette normal in size. The left heart border is partially obscured due to left basilar reticular opacities. Persistent coarsened lung markings with a mid to basilar predominant reticulations greater on the left. Low lung volumes unchanged. No new focal opacity. No pleural effusion or pneumothorax. Osseous structures normal. Upper abdomen normal. IMPRESSION: 1. Low lung volumes and reticular lung opacities with a basilar predominance most suggestive of fibrotic lung disease. No superimposed infiltrate to suggest infection. Electronically signed by: Inocente Lamb M.D. 07/08/2017 2:24 PM Dictated Date/Time: 07/08/2017 2:22 PM
== END | disposition home or self-care (01) ==
LOC: C.RAD1850 14:04
PROVIDERS: ATTEND Physician Assistant
DX: R91.8 Other nonspecific abnormal finding of lung field (principal); J84.9 Interstitial pulmonary disease, unspecified

== ENCOUNTER 2018-08-18 13:38 | Inpatient (IN) ==
[2018-08-18 14:20] LABS: Eosinophils # (auto) 0.03 K/uL (0-0.5); Eosinophils % (auto) 0.2 %; Hematocrit (blood only) 38.4 % (37-47); Hemoglobin 13.1 g/dL (12.0-16.0); Immature Granulocytes # (auto) 0.05 K/uL (0.00-0.02); Immature Granulocytes % (auto) 0.4 %; Lymphocytes # (auto) 0.65 K/uL (1.2-3.4); Lymphocytes % (auto) 5.2 %; Mean Corpuscular Hgb Conc 34.1 g/dL (32-36); Mean Corpuscular Volume 97.2 fL (80-100); Monocytes # (auto) 0.39 K/uL (0.11-0.59); Monocytes % (auto) 3.1 %; Neutrophils # (auto) 11.45 K/uL (1.4-6.5); Neutrophils % (auto) 91.1 %; Platelet Count 202 K/uL (130-400); RDW Coefficient of Variation 13.2 % (11.5-14.5); Red Blood Count 3.95 M/uL (4.2-5.4); White Blood Count 12.57 K/uL (4.8-10.8)
--- NOTE | 2018-08-18 14:29 | XRay Report ---
XR chest 1V portable CLINICAL HISTORY: Weakness. COMPARISON STUDY: Chest radiograph May 22, 2017. Chest CT September 14, 2016. FINDINGS: Lung volumes are diminished. This is unchanged. Interstitial thickening is unchanged. Cardi omediastinal silhouette is stable. Appearance of the chest is unchanged. There is no pneumothorax or pleural effusion. IMPRESSION: Low lung volumes with interstitial thickening which is unchanged from earlier exams. Thi s suggests interstitial lung disease. Electronically signed by: Jamie العراقي M.D. 08/18/2018 2:28 PM
[2018-08-18 14:33] LABS: Prothrombin Time 10.1 Seconds (9.0-12.0)
[2018-08-18 14:39] LABS: Alanine Aminotransferase 29 U/L (12-78); Albumin Level 3.5 gm/dl (3.4-5.0); Aspartate Aminotransferase 19 U/L (15-37); BUN Creatinine Ratio 26.4 (10-20); Blood Urea Nitrogen 25 mg/dl (7-18); Calcium 9.4 mg/dl (8.5-10.1); Carbon Dioxide 26 mmol/L (21-32); Chloride 99 mmol/L (98-107); Est GFR (African American) 65.9; Est GFR (Non-African American) 56.9; Glucose 179 mg/dl (70-99); Magnesium 1.8 mg/dl (1.8-2.4); Potassium 4.2 mmol/L (3.5-5.1); Sodium 134 mmol/L (136-145)
[2018-08-18 14:50] LABS: Alkaline Phosphatase 60 U/L (45-117); Bilirubin,Total 0.5 mg/dl (0.2-1); Globulin 3.5 gm/dl (2.5-4.0); Troponin I < 0.015 ng/ml (0-0.045)
[2018-08-18] MEDS ORDERED: BUPIVACAINE 0.5 % 5 MG/1 ML MPF 30ML VIAL ONE (16:26)
[2018-08-18] MEDS ORDERED: MIDAZOLAM HCL 5 MG/ML 1 ML VIAL ONE (16:42)
[2018-08-18] MEDS ORDERED: fentaNYL citrate 100 MCG/2 ML VIAL ONE (16:42)
--- NOTE | 2018-08-18 16:46 | History & Physical Report ---
Date of Service August 18, 2018 Assessment & Plan (1) Symptomatic bradycardia: (2) S/P placement of cardiac pacemaker: This is an 83yo F with a PMH of tachy-cierra syndrome, DM II, Sjogren's syndrome with interstitial lung disease on 2L NC O2, HTN, CKD III and other medical problems listed below who presents with shortness of breath and lightheadedness starting this morning and was found to have second degree heart block. -Developed shortness of breath, lightheadedness and chest tightness this morning -Has history of tachy-cierra syndrome with upcoming pacemaker placement planned -EKG with second degree block with 2:1 conduction block -Evaluated by in ED and was taken for pacemaker placement this afternoon -Cardiology consulted -Monitor on telemetry (3) Sjogren's syndrome with lung involvement: Continue maintenance dose prednisone 10mg daily -On 2-3L NC O2 for interstitial lung disease (4) Hypertension: Continue amlodipine. Holding Toprol for now (5) CKD (chronic kidney disease), stage III: At baseline. Continue monitoring daily BMP (6) Diabetes mellitus, type II: A1c of 7 in July 2018 -Hold home agents -SSI while in-patient -BSG AC HS (7) Retinal vein occlusion: Follows with Dr. Arvizu at [facility] for injections (8) Temporal arteritis: Recently high dose steroids were discontinued and patient was resumed on maintence prednisone for Sjogren's -Temporal arteritis [place] [facility] [place] (9) Dyslipidemia: Continue Crestor (10) GERD (gastroesophageal reflux disease): Continue PPI DVT Ppx: SCDs for now Code status: FULL PCP: Cade Dispo: Admitted to telemetry. Discharge planning ordered. Patient seen in collaboration with Dr. Gaytan. Please see addendum. History of Present Illness Chief Complaint: shortness of breath Primary Care Provider: Pilar Mohamud, DO This is an 83yo F with a PMH of tachy-cierra syndrome, DM II, Sjogren's syndrome with interstitial lung disease on 2L NC O2, HTN, CKD III and other medical problems listed below who presents with shortness of breath and lightheadedness starting this morning. Patient with history of tachybrady syndrome with plans for pacemaker placement today by Dr. Baird but patient rescheduled procedure for August 25. Was in normal state of health until this morning, when she started to experience lightheadedness, worsening shortness of breath and intermittent chest tightness. Also experienced some nausea without vomiting. Took her pulse at home which was 45-50. Did not take her beta-renu this morning. Called her PCP's office and was directed to ED for further evaluation. Evaluated in the ED with heart rate around 50. Still feeling lightheaded and short of breath. Oxygen saturation of 98% on 2 L nasal cannula. EKG with evidence of second-degree heart block with 2-1 conduction. Troponin normal. Cardiology was consulted and Dr. Baird evaluated patient in the emergency department and took her for pacemaker placement. Patient denies any fever, chills, headache, wheezing, vomiting, abdominal pain, dysuria, diarrhea or constipation. Allergies Allergy/AdvReac Type Severity Reaction Status Date / Time Bactrim Allergy Severe edema Unverified 05/23/17 00:18 face/lips/tongue sulfamethoxazole Allergy Severe edema Unverified 08/18/18 14:16 face/lips/tongue trimethoprim Allergy Severe edema Unverified 08/18/18 14:16 face/lips/tongue latex Allergy Mild LOCAL SKIN Unverified 08/18/18 14:16 REACTION niacin Allergy Mild RASH Unverified 08/18/18 14:16 Cipro AdvReac Intermediate GI SYMPTOMS Verified 05/23/17 00:18 ciprofloxacin AdvReac Intermediate GI SYMPTOMS Verified 08/18/18 14:16 metronidazole AdvReac Intermediate GI SYMPTOMS Verified 08/18/18 14:16 naproxen AdvReac Intermediate BURNING Unverified 08/18/18 14:16 STOMACH Home Medications Home Medications Medication Instructions Recorded Confirmed Type albuterol sulfate 2 puff INHALATION Q6H PRN 07/30/18 08/18/18 History amlodipine 5 mg PO DAILY 07/30/18 08/18/18 History dextran 70-hypromellose (PF) 1 drp OPHTHALMIC (EYE) HS 07/30/18 08/18/18 History [Artificial Tears (PF)] levothyroxine 50 mcg PO DAILY 07/30/18 08/18/18 History metformin 500 mg PO BID 07/30/18 08/18/18 History mometasone-formoterol [Dulera] 2 puff INHALATION Q12H 07/30/18 08/18/18 History omeprazole 20 mg PO DAILY 07/30/18 08/18/18 History rosuvastatin [Crestor] 10 mg PO DAILY 07/30/18 08/18/18 History triamcinolone acetonide 1 applic TOPICAL BID 07/30/18 08/18/18 History acetaminophen [Acetaminophen Extra 1,000 mg PO BID PRN 08/18/18 08/18/18 History Strength] calcium polycarbophil [Fiber 1,250 mg PO DAILY 08/18/18 08/18/18 History (calcium polycarbophil)] docusate sodium 100 mg PO BID PRN 08/18/18 08/18/18 History erythromycin 1 applic OPHTHALMIC (EYE) QID 08/18/18 08/18/18 History ipratropium bromide 0.5 mg INHALATION Q4H PRN 08/18/18 08/18/18 History lactobacillus combination no.4 3,000 mmu cells PO DAILY 08/18/18 08/18/18 History [Probiotic] metoprolol succinate 50 mg PO BID 08/18/18 08/18/18 History kb-ci-KS-vit S-reirn-rgig-zeax 2 tab PO DAILY 08/18/18 08/18/18 History [Ocuvite Eye Plus Multi] prednisone 10 mg PO DAILY 08/18/18 08/18/18 History Past Med/Surg History Medical History Sjogren's syndrome with lung involvement (Chronic) Retinal vein occlusion (Chronic) Pulmonary hypertension (Chronic) GERD (gastroesophageal reflux disease) (Chronic) Dyslipidemia (Chronic) CKD (chronic kidney disease), stage III (Chronic) Hypertension (Chronic) Osteoporosis (Chronic) Central retinal vein occlusion of left eye (Chronic) Diverticulosis of colon (Chronic) GERD (gastroesophageal reflux disease) (Inactive) Surgical History Status post tubal ligation (Chronic) Status post appendectomy (Chronic) History of appendectomy (Resolved) Family History Other Heart disease Social History Preferred Language: Guatemalan Communication Ability: Effective Compliance Tester Required: No Beliefs That Will Affect Care: None marital status: / Current Living Situation: Family Current Living Situation Comment: Patient's son, Lorenzo, lives with her. current occupational status: retired Other Information That Helps Us Care for You: No Feels Safe at Home: Yes Safety Concerns: Feels Safe At This Time Smoking Status: Never smoker Hx Alcohol Use: Yes Alcohol type: wine Hx Substance Use: No Review of Systems Review of Systems: At least ten systems reviewed and negative except as noted in the HPI. Physical Exam Physical Exam: General Appearance: WD/WN, no apparent distress Head: normocephalic, atraumatic, left taoism with healing lesion, no drainage Eyes: normal inspection, PERRL, EOMI ENT: hearing grossly normal, pharynx normal (moist mucous membranes) Neck: supple, no JVD, no adenopathy Respiratory/Chest: lungs clear to auscultation. No wheezes, rales or rhonci. No respiratory distress or accessory muscle use Cardiovascular: bradycardic, no murmur appreciated, normal peripheral pulses, no BLE edema Abdomen/GI: normal bowel sounds, soft, non-tender to palpation Extremities/Musculoskelatal: normal inspection, no calf tenderness, normal capillary refill, no pedal edema Neurologic/Psych: alert, normal mood/affect, oriented x 3 Skin: pale, warm/dry Results & Data Vital Signs (Past 12 Hours) Vital Signs Temp Pulse Pulse Resp BP BP Pulse Ox 08/18/18 15:39 50 L 16 184/75 H 98 08/18/18 14:11 98 08/18/18 13:53 98 08/18/18 13:48 36.7 C 51 L 16 140/70 98 Laboratory Results Short CBC 08/18/18 Range/Units 14:04 WBC 12.57 H (4.8-10.8) K/uL Hgb 13.1 (12.0-16.0) g/dL Hct 38.4 (37-47) % Plt Count 202 (130-400) K/uL BMP 08/18/18 14:04 Sodium 134 L Potassium 4.2 Chloride 99 Carbon Dioxide 26 BUN 25 H Creatinine 0.94 Glucose 179 H Calcium 9.4 Cardiac Enzymes 08/18/18 Range/Units 14:04 Troponin I < 0.015 (0-0.045) ng/ml Liver Function 08/18/18 Range/Units 14:04 Total Bilirubin 0.5 (0.2-1) mg/dl AST 19 (15-37) U/L ALT 29 (12-78) U/L Alkaline Phosphatase 60 (45-117) U/L Albumin 3.5 (3.4-5.0) gm/dl Diagnostic Findings CXR: IMPRESSION: Low lung volumes with interstitial thickening which is unchanged from earlier exams. This suggests interstitial lung disease. ECG Additional Comments: Sinus rhythm with 2nd degree A-V block with 2:1 A-V conduction. Left ventricular hypertrophy with repolarization abnormality Supervising Physician Co-Signing Physician Notes Patient is an 83-year-old female with history of tachybradycardia syndrome, Sjogren's Syndrome, interstitial lung disease on chronic oxygen dependency and other problems presents with history of shortness of breath, lightheadedness, chest discomfort since this morning. Patient was found to be bradycardic in 40s. On recommendations from cardiology patient is planned for pacemaker placement today. Patient is voiding well after pacemaker placement. Denies any symptoms currently. On exam patient is moderately built and nourished, no apparent distress, normocephalic atraumatic, lungs are clear to auscultation, S1 S2, +bradycardia, no murmur, no pedal edema, abdomen soft nontender, grossly no focal neurological deficits. Patient is admitted for the management of symptomatic bradycardia. EKG is suggestive of second-degree AV Block . Hold metoprolol. Keep her n.p.o. Cardiology consulted for pacemaker placement. Pacer pads at bedside. Mild leukocytosis, no obvious signs of infection. Blood pressure slightly elevated. Need to adjust hypertension meds as needed. I personally reviewed the record. Patient is interviewed and examined at bedside. Patient's care is coordinated with Emily Young PA-C. Please refer to the documentation above for details of patient's presentation and for discussion of other issues.
--- NOTE | 2018-08-18 17:24 | Emergency Department Note ---
Entered by Lorie Rdz acting as a scribe for History of Present Illness General Chief complaint: Shortness of Breath/Dyspnea Stated complaint: LOW HEART RATE Time Seen by Provider: 08/18/18 13:54 Source: patient History of Present Illness Onset (ago): day(s) (this morning) Location: chest Pain Consistency: + other (persistent) Maximum Pain Intensity: 2 Quality: + other (shortness of breath) Relieved By: + rest Exacerbated By: + movement (exertion) Associated symptoms: + cough, + nausea/vomiting (nausea) and + other (dizzy, lightheaded, slow heart rate, leg swelling) The patient is a n 83 female w/ PMHx Dyslipidemia, Sjogrens Syndrome, GERD, CKD, HTN, Diverticulosis, Interstitial Lung Disease, and Sepsis who presents to the ED w/ CC of persistent shortness of breath starting this morning. The patient states that when she woke up this morning she was dizzy, lightheaded, short of breath, nauseous, and noticed she had a slow heart rate. She states that it was 48 beats per a minute. She reports that she was able to see her heart rate on her finger pulse ox and her blood pressure cuff that she has at home. She states that she is supposed to have a pace maker placed next week by Dr. Baird. She notes that her symptoms are better with rest and worse with exertion. The patient complains of leg swelling and dry cough. The patient notes that she wears O2 at all times. She notes that she recently was on an increased dose of Prednisone for temporal arteritis, but she was weaned off once the biopsy came back negative. She notes that she last took her 50 mg of Metoprolol last night and didnt take this morning. Home Medications Home Medications Medication Instructions Recorded Confirmed Type albuterol sulfate 2 puff INHALATION Q6H PRN 07/30/18 08/18/18 History amlodipine 5 mg PO DAILY 07/30/18 08/18/18 History dextran 70-hypromellose (PF) 1 drp OPHTHALMIC (EYE) HS 07/30/18 08/18/18 History [Artificial Tears (PF)] levothyroxine 50 mcg PO DAILY 07/30/18 08/18/18 History metformin 500 mg PO BID 07/30/18 08/18/18 History mometasone-formoterol [Dulera] 2 puff INHALATION Q12H 07/30/18 08/18/18 History omeprazole 20 mg PO DAILY 07/30/18 08/18/18 History rosuvastatin [Crestor] 10 mg PO DAILY 07/30/18 08/18/18 History triamcinolone acetonide 1 applic TOPICAL BID 07/30/18 08/18/18 History acetaminophen [Acetaminophen Extra 1,000 mg PO BID PRN 08/18/18 08/18/18 History Strength] calcium polycarbophil [Fiber 1,250 mg PO DAILY 08/18/18 08/18/18 History (calcium polycarbophil)] docusate sodium 100 mg PO BID PRN 08/18/18 08/18/18 History erythromycin 1 applic OPHTHALMIC (EYE) QID 08/18/18 08/18/18 History fluticasone propionate [Flonase 1 spray INTRANASAL DIRECTED PRN 08/18/18 08/18/18 History Allergy Relief] ipratropium bromide 0 ml INHALATION Q4H PRN 08/18/18 08/18/18 History lactobacillus combination no.4 3,000 mmu cells PO DAILY 08/18/18 08/18/18 History [Probiotic] metoprolol succinate 50 mg PO BID 08/18/18 08/18/18 History xy-ol-VH-vit T-meobb-ggbt-zeax 2 tab PO DAILY 08/18/18 08/18/18 History [Ocuvite Eye Plus Multi] prednisone 10 mg PO BID 08/18/18 08/18/18 History Allergies Allergy/AdvReac Type Severity Reaction Status Date / Time Bactrim Allergy Severe edema Unverified 05/23/17 00:18 face/lips/tongue sulfamethoxazole Allergy Severe edema Unverified 08/18/18 14:16 face/lips/tongue trimethoprim Allergy Severe edema Unverified 08/18/18 14:16 face/lips/tongue latex Allergy Mild LOCAL SKIN Unverified 08/18/18 14:16 REACTION niacin Allergy Mild RASH Unverified 08/18/18 14:16 Cipro AdvReac Intermediate GI SYMPTOMS Verified 05/23/17 00:18 ciprofloxacin AdvReac Intermediate GI SYMPTOMS Verified 08/18/18 14:16 metronidazole AdvReac Intermediate GI SYMPTOMS Verified 08/18/18 14:16 naproxen AdvReac Intermediate BURNING Unverified 08/18/18 14:16 STOMACH Past Med/Surg History Medical History Sjogren's syndrome with lung involvement (Chronic) Retinal vein occlusion (Chronic) Pulmonary hypertension (Chronic) GERD (gastroesophageal reflux disease) (Chronic) Dyslipidemia (Chronic) CKD (chronic kidney disease), stage III (Chronic) Hypertension (Chronic) Osteoporosis (Chronic) Central retinal vein occlusion of left eye (Chronic) Diverticulosis of colon (Chronic) GERD (gastroesophageal reflux disease) (Inactive) Surgical History Status post tubal ligation (Chronic) Status post appendectomy (Chronic) History of appendectomy (Resolved) Family History Other Heart disease Social History Preferred Language: Icelandic marital status: / Current Living Situation: Family current occupational status: retired Feels Safe at Home: Yes Smoking Status: Never smoker Review of Systems See HPI for pertinent positives & negatives. and A total of 10 systems reviewed and were otherwise negative Physical Exam Vital Signs Vital Signs - 24 hr 08/18/18 13:48 08/18/18 13:53 08/18/18 14:11 Temperature 36.7 C Temperature Source Oral Sepsis Recent Fever Within 48 Hours No Sepsis New/Unexplained Change in Mental Status No Sepsis Action Taken by Nursing No Action Required Pulse Rate 51 L Pulse Rate [Apical] Respiratory Rate 16 Respiratory Effort / Characteristics Non-Labored Respiratory Depth Normal Blood Pressure 140/70 Blood Pressure [Right Arm] Blood Pressure Mean 93 Blood Pressure Mean [Right Arm] Blood Pressure Position Sitting Pulse Oximetry 98 98 98 Oxygen Delivery Method Room Air Nasal Cannula Nasal Cannula Oxygen Flow Rate 2 2 08/18/18 15:39 Temperature Temperature Source Sepsis Recent Fever Within 48 Hours Sepsis New/Unexplained Change in Mental Status Sepsis Action Taken by Nursing Pulse Rate Pulse Rate [Apical] 50 L Respiratory Rate 16 Respiratory Effort / Characteristics Respiratory Depth Blood Pressure Blood Pressure [Right Arm] 184/75 H Blood Pressure Mean Blood Pressure Mean [Right Arm] 111 Blood Pressure Position Pulse Oximetry 98 Oxygen Delivery Method Nasal Cannula Oxygen Flow Rate 2 GENERAL: Wearing glasses. Nasal cannula in place. Well appearing, well nourished, NAD, non-toxic. HEAD: Well healing incision over L temporal area; no redness, fluctuance or drainage. EYE EXAM: Normal conjunctiva. PERRL, no anisocoria and EOM's grossly intact w/o pain. OROPHARYNX: Moist mucous membranes. Grossly normal dentition. NECK: Supple, no nuchal rigidity, no adenopathy, non-tender. No signs of meningismus. LUNGS: Bibasilar crackles. Normal chest wall mechanics. HEART: Bradycardic, no MRG. ABDOMEN: Abdomen soft, non-tender, normo-active bowel sounds, no masses, no rebound or guarding. BACK: No CVA TTP. SKIN: No rashes and no bruising. UPPER EXTREMITIES: Upper extremities are grossly normal. LOWER EXTREMITIES: No pitting edema. No calf pain. Negative Naga's sign. NEURO EXAM: A&O x3, cranial nerves II-XII grossly intact, normal speech, moves all 4 extremities on command w/o issue. Course 1357: Past medical records reviewed. The patient was evaluated in room C2B. A complete history and physical exam was performed. 1525: I reevaluated the patient and updated her on her test results. I discussed the treatment plan with her. She verbally agrees and understands. 1530: I discussed the patient's case with LEO Randall. She will evaluate the patient for further management. Consultations Consultation #1: I discussed the patient's case with LEO Randall. She will evaluate the patient for further management. Time: 15:30 Administered Medications Discontinued Medications Bupivacaine HCl (Marcaine 0.5% Mpf) Confirm Administered Dose 30 ml .ROUTE .[facility] Stop: 08/18/18 16:27 Last Admin: 08/18/18 16:46 Dose: 30 ml Documented by: [id number] Medical Decision Making Medical Records Attestation: I reviewed the patient's medical records. Home Medications Current Medication List: was personally reviewed by me Laboratory Data Attestation: I reviewed the patient's lab results. Result diagrams: 08/18/18 14:04 08/18/18 14:04 Lab Results 08/18/18 08/18/18 08/18/18 Range/Units 14:04 14:04 14:04 WBC 12.57 H (4.8-10.8) K/uL RBC 3.95 L (4.2-5.4) M/uL Hgb 13.1 (12.0-16.0) g/dL Hct 38.4 (37-47) % MCV 97.2 (80-100) fL MCH 33.2 (25-34) pg MCHC 34.1 (32-36) g/dL RDW Std Deviation 47.0 H (36.4-46.3) fL RDW Coeff of Gabriel 13.2 (11.5-14.5) % Plt Count 202 (130-400) K/uL MPV 10.0 (7.4-10.4) fL Immature Gran % (Auto) 0.4 % Neut % (Auto) 91.1 % Lymph % (Auto) 5.2 % [place] % (Auto) 3.1 % Eos % (Auto) 0.2 % Baso % (Auto) 0.0 % Immature Gran # (Auto) 0.05 H (0.00-0.02) K/uL Neut # (Auto) 11.45 H (1.4-6.5) K/uL Lymph # (Auto) 0.65 L (1.2-3.4) K/uL Col[place] # (Auto) 0.39 (0.11-0.59) K/uL Eos # (Auto) 0.03 (0-0.5) K/uL Baso # (Auto) 0.00 (0-0.2) K/uL PT 10.1 (9.0-12.0) Seconds INR 1.0 (0.9-1.1) Sodium 134 L (136-145) mmol/L Potassium 4.2 (3.5-5.1) mmol/L Chloride 99 (98-107) mmol/L Carbon Dioxide 26 (21-32) mmol/L Anion Gap 9.0 (3-11) BUN 25 H (7-18) mg/dl Creatinine 0.94 (0.6-1.2) mg/dl Est Cr Clr Drug Dosing Not Reportable Est GFR ( Amer) 65.9 Est GFR (Non-Af Amer) 56.9 BUN/Creatinine Ratio 26.4 H (10-20) Glucose 179 H (70-99) mg/dl Calcium 9.4 (8.5-10.1) mg/dl Magnesium 1.8 (1.8-2.4) mg/dl Total Bilirubin 0.5 (0.2-1) mg/dl AST 19 (15-37) U/L ALT 29 (12-78) U/L Alkaline Phosphatase 60 (45-117) U/L Troponin I < 0.015 (0-0.045) ng/ml Total Protein 7.0 (6.4-8.2) gm/dl Albumin 3.5 (3.4-5.0) gm/dl Globulin 3.5 (2.5-4.0) gm/dl Albumin/Globulin Ratio 1.0 (0.9-2) TSH 1.280 (0.300-4.500) uIu/ml Imaging Data Radiologist's Impression: Radiology results as stated below per my review and the radiologist's interpretation: XR chest 1V portable CLINICAL HISTORY: Weakness. COMPARISON STUDY: Chest radiograph May 22, 2017. Chest CT September 14, 2016. FINDINGS: Lung volumes are diminished. This is unchanged. Interstitial thickening is unchanged. Cardiomediastinal silhouette is stable. Appearance of the chest is unchanged. There is no pneumothorax or pleural effusion. IMPRESSION: Low lung volumes with interstitial thickening which is unchanged from earlier exams. This suggests interstitial lung disease. Electronically signed by: Jamie العراقي M.D. 08/18/2018 2:28 PM ECG Data Attestation: I personally reviewed and interpreted this ECG as follows: Indication: SOB/dyspnea Rate (beats per minute): 46 Rhythm: sinus bradycardia Findings: + other (normal intervlas, normal axis, second degree AV block) and + T-wave inversion (aVL) Comparison ECG Date: from (08/03/[address] Lee's office) Change: the following changes noted (was in sinus tach at that time) Blood Pressure Blood Pressure Findings: Elevated blood pressure Blood Pressure Disposition: further management by hospitalist KALEN Narrative The patient is a n 83 female w/ PMHx Dyslipidemia, Sjogrens Syndrome, GERD, CKD, HTN, Diverticulosis, Interstitial Lung Disease, and Sepsis who presents to the ED w/ CC of persistent shortness of breath starting this mo rning. Differential diagnosis includes etiologies such as benign positional vertigo, dehydration, hypovolemia, anemia, tumor, infection, hypoglycemia, electrolyte abnormalities, cardiac sources, intracerebral event, toxicologic, neurologic, as well as others were entertained. Patient was seen and evaluated the bedside. The patient was complaining of some symptomatic bradycardia and associated dizziness. The patient does use chronic oxygen. The patient does not complain of chest pains. Patient does have exertional dyspnea. The patient is otherwise fairly well-appearing at the bedside and does have some intermittent bradycardia. EKG did show 2-1 second- degree heart block. It is difficult to ascertain if this is Mobitz 1 or 2 as every other beat is conducted. Unable to see if the TX length is lengthening or not. The patient is supposed to have a pacemaker placed in the week. Given the patient's symptoms and associated EKG changes as the report I was able to review is from Dr. Lee show that the patient was in sinus tachycardia within the last 3 weeks. I did discuss the case with the on-call hospitalist who agreed to further evaluate treat the patient. Patient was admitted to the medicine service. Of note the patient is chronically on steroids and recently had taper and had a negative temporal artery biopsy for giant cell arteritis per the patient. Impression & Plan Second degree heart block, Symptomatic bradycardia Discharge Plan Visit Data Chief Complaint: Shortness of Breath/Dyspnea Stated Complaint: LOW HEART RATE ED Provider: Juan Cortes Discharge Problem: Second degree heart block, Symptomatic bradycardia Patient Disposition: Being Evaluated by Hospitalist Discharge Instructions Interventions: ED Discharge Assessment Last Done: 08/18/18 16:30 The scribe's documentation has been prepared under my direction and personally reviewed by me in its entirety. I confirm that the note above accurately reflects all work, treatment, procedures, and medical decision making performed by me.
[2018-08-18] MEDS ORDERED: METOPROLOL TARTRATE 1 MG/ML VIAL IV ONE (17:35)
--- NOTE | 2018-08-18 17:42 | History & Physical Bridge Note ---
Date of Service August 18, 2018 History & Physical Bridge Note I have examined the patient, reviewed the History & Physical and in the interval since the performance of the History & Physical I have noted the following changes of clinical significance: pt with symptomatic 2:1 AV block for urgent ppm
--- NOTE | 2018-08-18 17:42 | Pre Anesthesia Assessment ---
Date of Service August 18, 2018 Pre Sedation Assessment Vital Signs Temp Pulse Pulse Resp BP BP Pulse Ox 08/18/18 15:39 50 L 16 184/75 H 98 08/18/18 14:11 98 08/18/18 13:53 98 08/18/18 13:48 36.7 C 51 L 16 140/70 98 Cardiovascular + bradycardic Respiratory normal respiratory effort, lungs clear to auscultation Pre-Sedation Airway Assessment Smoking Status: Never smoker Hx Sleep Apnea: No Hx Difficult Intubation: No Short, Thick Neck: No Thyromental Distance: < 3.5 Finger Breadths Oral Cavity: + WNL Mallampati Class: III ASA: ASA4 Notes The planned sedation has been discussed with the patient. Informed Consent was obtained. I have identified the patient, determined the appropriateness of sedation and have assessed the patient immediately prior to the procedure. All medicine(s) and interventions are by my order.
--- NOTE | 2018-08-18 17:43 | Post Anesthesia Assessment ---
Date of Service August 18, 2018 Post Sedation Assessment Vital Signs Temp Pulse Pulse Resp BP BP Pulse Ox 08/18/18 15:39 50 L 16 184/75 H 98 08/18/18 14:11 98 08/18/18 13:53 98 08/18/18 13:48 36.7 C 51 L 16 140/70 98 Recovery Score Activity: Moves 4 extremities Respiration: Deep Breath/Cough Circulation: +/-20% PreAnes Value Consciousness: Fully Awake Oxygen Saturation: > 92% On Room Air Discharge Sedation Level of Care: Fast Track Phase II Post Sedation Plan On clinical assessment, the patient appears to have tolerated the sedation without complications. Patient is recovering as anticipated. Patient will continue to be monitored by nursing and may be discharged when sedation discharge criteria are met per below protocol. Upon Completions of procedure and additional 15 minutes continue every 5 minute vital signs and the P.A.R. score; then discharge to a Phase I or Fast Track to Phase II per the following guidelines: * Discharge Patient to appropriate Phase II area if PAR is 8 or greater or return to pre- procedure baseline. The post - procedure orders will be as directed. * If PAR score is less than 8 or not return to pre-procedure baseline then patient will follow Phase I monitoring till PAR is reached for Phase II. The Phase I may be done in procedure room or may call to secure a Phase I area. * If naloxone or flumazenil are used for reversal, hold in Phase I for continued monitoring from when last reversal dose was given for a minimum of 60 minutes or longer pending the nurse and/or physician discretion of patient condition before discharge to Phase II. Please call the Sedation Physician to re-evaluate and complete post-note for discharge to Phase II area. Do NOT discharge from procedure sedation or Phase 1 until post- sedation evaluation note is complete by procedure /sedation MD Sedation Discharge Instructions to be given to the patient at discharge to home.
--- NOTE | 2018-08-18 17:43 | Operative Report ---
Post Operative Report Pre & Post Diagnosis 2:1 AV block Operation Date: 08/18/18 16:15 <No data on this case meets the specified criteria> Procedure Operation Date: 08/18/18 16:15 Actual Procedures p Pacer with A/V Leads (Dual) - Feli Baird DO s Venogram, Unilateral - Feli Baird DO Surgeon Feli Baird, Supervisor Mails none Estimated Blood Loss 25 Findings Consistent with Post-Op Diagnosis Specimens none Description of Procedure see official report I attest to the content of the Intraoperative Record and any orders documented therein. Any exceptions are noted below.
[2018-08-18] MEDS ORDERED: IPRATROPIUM BROMIDE NEB SOLN 0.02% 2.5 ML VIAL INH PRN (17:45)
[2018-08-18] MEDS ORDERED: ALBUTEROL HFA 8 GM INHALER INH PRN (17:45)
[2018-08-18] MEDS ORDERED: ONDANSETRON INJ 2 MG/ML 2 ML VIAL IV PRN (17:45)
[2018-08-18] MEDS ORDERED: CARBOHYDRATES FOR HYPOGLYCEMIA PO PRN (17:45)
[2018-08-18] MEDS ORDERED: GLUCAGON FOR INJ 1 MG VIAL SQ PRN (17:45)
[2018-08-18] MEDS ORDERED: GLUCOSE 10 TABS/TUBE PO PRN (17:45)
[2018-08-18] MEDS ORDERED: GLUCOSE 40% GEL 15 GM TUBE PO PRN (17:45)
[2018-08-18] MEDS ORDERED: POLYETHYLENE (MIRALAX) 17 GM PACK PO PRN (17:45)
[2018-08-18] MEDS ORDERED: DEXTROSE 50% 50 ML SYRINGE IV PRN (17:45)
[2018-08-18] MEDS: ERYTHROMYCIN OP OINT 1 GM PKT OP SCH (20:15)
[2018-08-18] MEDS: TRIAMCINOLONE ACET 0.1% CR 15 GM TUBE TOP SCH (20:18)
[2018-08-18] MEDS: INSULIN ASPART 100 UNITS/ML 3 ML PEN SC SCH (20:18)
[2018-08-18] MEDS: METOPROLOL SUCC 50MG EXT REL TAB PO SCH (20:23)
[2018-08-18] MEDS ORDERED: DOCUSATE SODIUM 100 MG CAP PO PRN (21:00)
[2018-08-18] MEDS ORDERED: ARTIFICIAL TEARS OP SCH (21:00)
[2018-08-18] MEDS: ACETAMINOPHEN 500 MG TAB PO PRN (21:49)
[2018-08-19] MEDS: ACETAMINOPHEN 500 MG TAB PO PRN (05:44)
[2018-08-19] MEDS ORDERED: LEVOTHYROXINE SODIUM 50 MCG TABLET PO SCH (06:30)
[2018-08-19 07:28] LABS: Hematocrit (blood only) 37.5 % (37-47); Hemoglobin 12.5 g/dL (12.0-16.0); Mean Corpuscular Hgb Conc 33.3 g/dL (32-36); Mean Corpuscular Volume 97.9 fL (80-100); Platelet Count 148 K/uL (130-400); RDW Coefficient of Variation 13.3 % (11.5-14.5); RDW Standard Deviation 47.5 fL (36.4-46.3); Red Blood Count 3.83 M/uL (4.2-5.4); White Blood Count 9.67 K/uL (4.8-10.8)
[2018-08-19 08:13] LABS: Calcium 8.4 mg/dl (8.5-10.1); Creatinine Clr Calc Pharmacy 66.9 ml/min; Est GFR (African American) 95.5; Est GFR (Non-African American) 82.4; Potassium 3.9 mmol/L (3.5-5.1)
[2018-08-19] MEDS: ERYTHROMYCIN OP OINT 1 GM PKT OP SCH ×2 (08:38→12:39)
[2018-08-19] MEDS: METOPROLOL SUCC 50MG EXT REL TAB PO SCH (08:38)
[2018-08-19] MEDS: INSULIN ASPART 100 UNITS/ML 3 ML PEN SC SCH ×2 (08:39→12:39)
[2018-08-19] MEDS: TRIAMCINOLONE ACET 0.1% CR 15 GM TUBE TOP SCH (08:40)
[2018-08-19] MEDS ORDERED: AMLODIPINE BESYLATE 5 MG TAB PO SCH (09:00)
[2018-08-19] MEDS ORDERED: ROSUVASTATIN CALCIUM 10 MG TAB PO SCH (09:00)
[2018-08-19] MEDS ORDERED: predniSONE 5 MG TAB PO SCH (09:00)
[2018-08-19] MEDS ORDERED: CEROVITE ADV FORMULA TAB PO SCH (09:00)
[2018-08-19] MEDS ORDERED: CALCIUM POLYCARBOPHIL 625MG TAB PO SCH (09:00)
[2018-08-19] MEDS ORDERED: PANTOprazole 40 MG TAB PO SCH (09:00)
[2018-08-19] MEDS ORDERED: LACTOBACILLUS ACIDOPHILUS (FLORANEX) TAB PO SCH (09:00)
--- NOTE | 2018-08-19 11:37 | Cardiology Progress Note ---
Date of Service August 19, 2018 Assessment & Plan (1) Symptomatic bradycardia: symptomatic 2:1 AV block s/p dual chamber ppm placement tolerated well placement to be confirmed, cxr ordered functioning appropriately restrictions reviewed will take down pressure dressing ok to d/c from cardiac standpoint device clinic will call to arrange f/u Subjective Pt seen and examined, states that her stomach is upset today. Some slight discomfort at pocket site. Denies sob, palpitations, lightheadedness or dizziness. tele reviewed: paced rhythm Review of Systems Review of Systems: All systems reviewed & are unremarkable except as noted in HPI & below Physical Exam Physical Exam: General: Awake, alert and oriented x 3. No acute distress. HEENT: Normocephalic, atraumatic. Pupils equal, round and reactive to light and accommodation. Extraocular muscles are intact. Anicteric sclera. Moist mucous membranes. Neck: No JVD. No bruit. Cardiovascular: Regular. Positive S-4. Normal S-1 and S-2. No S-3. No murmurs or rubs. Pulmonary: Clear to auscultation B/L. No rales, rhonchi or wheezing Abdomen: Bowel sounds x 4, soft. No rebound, guarding or tenderness. No organomegaly. Extremities: No clubbing, cyanosis or edema. +2 pedal pulses bilaterally. Skin: Warm and dry. Results & Data Vital Signs (Past 12 Hours) Vital Signs Temp Pulse Pulse Resp BP Pulse Ox 08/19/18 11:04 37.4 C 90 18 134/79 99 08/19/18 07:24 37.2 C 93 H 20 134/79 99 08/19/18 03:47 37.1 C 88 19 157/90 H 100 08/19/18 00:13 36.7 C 85 18 165/85 H 98
--- NOTE | 2018-08-19 12:47 | XRay Report ---
XR chest 2V routine HISTORY: 83 years-old Female s/p pacemaker placement status post placement of a left subclavian pace r COMPARISON: Chest radiograph 08/18/2018 TECHNIQUE: PA and lateral views of the chest FINDINGS: Cardiomediastinal and hilar silhouettes are within normal limits. Calcification of the thoracic aorti c arch. Status post placement of a left subclavian pacer with leads overlying the expected locations of the right atrium and right ventricle. No postprocedural pneumothorax identified. Bilateral interst itial opacities, left greater than right appear unchanged. Degenerative changes of the shoulders and spine. IMPRESSION: Status post placement of a left subclavian pacer without postprocedural pneumothorax iden tified. The above report was generated using voice recognition software. It may contain grammatical, syntax o r spelling errors. Electronically signed by: Rodriguez Thompson M.D. 08/19/2018 12:46 PM
--- NOTE | 2018-08-19 14:32 | Hospitalist Progress Note ---
Date of Service August 19, 2018 Assessment & Plan (1) Symptomatic bradycardia: (2) S/P placement of cardiac pacemaker: Per admitting service notes: This is an 83yo F with a PMH of tachy-cierra syndrome, DM II, Sjogren's syndrome with interstitial lung disease on 2L NC O2, HTN, CKD III and other medical problems listed below who presents with shortness of breath and lightheadedness starting this morning and was found to have second degree heart block. -Developed shortness of breath, lightheadedness and chest tightness this morning -Has history of tachy-cierra syndrome with upcoming pacemaker placement planned -EKG with second degree block with 2:1 conduction block -Evaluated by in ED and was taken for pacemaker placement this afternoon -Cardiology consulted -Monitor on telemetry August 19, 2018 Status post dual-chamber pacemaker insertion on August 18, [address] Haynes Tolerated the procedure well Usual metoprolol 50 mg twice a day restarted, heart rate remaining in the 80s Patient asymptomatic Evaluated by studio assistant Dr. Mccormick, cleared for discharge Follow-up with cardiology clinic for recheck, the clinic will be calling her for the appointment Post pacemaker placement instructions given (3) Sjogren's syndrome with lung involvement: Respiratory status stable Continue maintenance dose prednisone 10mg daily -On 2-3L [place] O2 for interstitial lung disease (4) Hypertension: Continue amlodipine and metoprolol (5) CKD (chronic kidney disease), stage III: At baseline. (6) Diabetes mellitus, type II: A1c of 7 in July 2018 Continue usual DM medications Outpatient follow-up (7) Retinal vein occlusion: Follows with Dr. Arvizu at [facility] for injections (8) Temporal arteritis: Recently high dose steroids were discontinued and patient was resumed on maintence prednisone for Sjogren's -Temporal arteritis biopsy negative at [facility] August 09 (9) Dyslipidemia: Continue Crestor (10) GERD (gastroesophageal reflux disease): Continue PPI DVT Ppx: SCDs for now Code status: FULL PCP: C[facility] Disposition Follow-up with primary care physician in 1 week, scheduling office close today, the clinic will be calling the patient with appointment Follow-up with cardiology clinic as scheduled for pacemaker check, clinic will call the patient for the appointment Subjective Follow-up for symptomatic bradycardia, status post pacemaker insertion Seen resting in bed, comfortable, in good spirits Denies recurrence of dizziness, shortness of breath, chest pain, ambulating to the bathroom with no problems Reports surgical incision site soreness, adequately managed No other symptoms States she is ready and would like to be discharged today Review of Systems Review of Systems: All systems reviewed & are unremarkable except as noted in HPI & below Physical Exam Physical Exam: General- oriented x 3, not in distress, speaks in sentences wit h no effort or accessory muscle use Head- atraumatic Eyes- PERRL, EOMI, anicteric ENT- oropharynx clear Neck- supple, no JVD, no adenopathy, no thyromegaly; carotids +2/2, no bruits appreciated Lungs- clear to auscultation bilaterally, no rales/wheezes Heart- normal rate, regular rhythm; no murmur, no gallop, no rub appreciated Pacemaker site: Small hematoma around the incision site, no edema, warmth, tenderness Abdomen- normal bowel sounds, nondistended, soft, nontender, no masses or hepatosplenomegaly Extremities- no pretibial edema, no calf tenderness; peripheral pulses intact Neuro- alert, oriented x 3; CN 2-12 grossly intact; motor 5/5 bilaterally;sensation 100% on all extremities; no other gross focal neurologic deficits Skin- warm & dry Results & Data Vital Signs (Past 12 Hours) Vital Signs Temp Pulse Resp BP Pulse Ox 08/19/18 11:04 37.4 C 90 18 134/79 99 08/19/18 07:24 37.2 C 93 H 20 134/79 99 08/19/18 03:47 37.1 C 88 19 157/90 H 100 Laboratory Results Laboratory Results - last 24 hr 08/18/18 08/19/18 08/19/18 20:16 07:17 07:17 WBC 9.67 RBC 3.83 L Hgb 12.5 Hct 37.5 MCV 97.9 MCH 32.6 MCHC 33.3 RDW Std Deviation 47.5 H RDW Coeff of Gabriel 13.3 Plt Count 148 MPV 10.0 Sodium 136 Potassium 3.9 Chloride 99 Carbon Dioxide 31 Anion Gap 6.0 BUN 15 Creatinine 0.67 Est Cr Clr Drug Dosing 66.9 Est GFR ( Amer) 95.5 Est GFR (Non-Af Amer) 82.4 BUN/Creatinine Ratio 23.0 H Glucose 102 H POC Glucose 188 H Calcium 8.4 L 08/19/18 08/19/18 07:22 11:02 WBC RBC Hgb Hct MCV MCH MCHC RDW Std Deviation RDW Coeff of Gabriel Plt Count MPV Sodium Potassium Chloride Carbon Dioxide Anion Gap BUN Creatinine Est Cr Clr Drug Dosing Est GFR ( Amer) Est GFR (Non-Af Amer) BUN/Creatinine Ratio Glucose POC Glucose 111 H 155 H Calcium
--- NOTE | 2018-08-19 17:19 | Discharge Summary ---
Date of Service August 19, 2018 Admission HPI Per Admitting Provider This is an 83yo F with a PMH of tachy-cierra syndrome, DM II, Sjogren's syndrome with interstitial lung disease on 2L NC O2, HTN, CKD III and other medical problems listed below who presents with shortness of breath and lightheadedness starting this morning. Patient with history of tachybrady syndrome with plans for pacemaker placement today by Dr. Baird but patient rescheduled procedure for August 25. Was in normal state of health until this morning, when she started to experience lightheadedness, worsening shortness of breath and intermittent chest tightness. Also experienced some nausea without vomiting. Too k her pulse at home which was 45-50. Did not take her beta-renu this morning. Called her PCP's office and was directed to ED for further evaluation. Evaluated in the ED with heart rate around 50. Still feeling lightheaded and short of breath. Oxygen saturation of 98% on 2 L nasal cannula. EKG with evidence of second-degree heart block with 2-1 conduction. Troponin normal. Cardiology was consulted and Dr. Baird evaluated patient in the emergency department and took her for pacemaker placement. Patient denies any fever, chills, headache, wheezing, vomiting, abdominal pain, dysuria, diarrhea or constipation. Admission Exam Per Admitting Provider General Appearance: WD/WN, no apparent distress Head: normocephalic, atraumatic, left amish with healing lesion, no drainage Eyes: normal inspection, PERRL, EOMI ENT: hearing grossly normal, pharynx normal (moist mucous membranes) Neck: supple, no JVD, no adenopathy Respiratory/Chest: lungs clear to auscultation. No wheezes, rales or rhonci. No respiratory distress or accessory muscle use Cardiovascular: bradycardic, no murmur appreciated, normal peripheral pulses, no BLE edema Abdomen/GI: normal bowel sounds, soft, non-tender to palpation Extremities/Musculoskelatal: normal inspection, no calf tenderness, normal capillary refill, no pedal edema Neurologic/Psych: alert, normal mood/affect, oriented x 3 Skin: pale, warm/dry Principal Diagnosis SYMPTOMATIC BRADYCARDIA, STATUS POST DUAL-CHAMBER PACEMAKER PLACEMENT AUGUST 18, 2018 Discharge Exam General- oriented x 3, not in distress, speaks in sentences with no effort or accessory muscle use Head- atraumatic Eyes- PERRL, EOMI, anicteric ENT- oropharynx clear Neck- supple, no JVD, no adenopathy, no thyromegaly; carotids +2/2, no bruits appreciated Lungs- clear to auscultation bilaterally, no rales/wheezes Heart- normal rate, regular rhythm; no murmur, no gallop, no rub appreciated Pacemaker site: Small hematoma around the incision site, no edema, warmth, tenderness Abdomen- normal bowel sounds, nondistended, soft, nontender, no masses or hepatosplenomegaly Extremities- no pretibial edema, no calf tenderness; peripheral pulses intact Neuro- alert, oriented x 3; CN 2-12 grossly intact; motor 5/5 bilaterally;sensation 100% on all extremities; no other gross focal neurologic deficits Skin- warm & dry Discharge Data Allergies Allergy/AdvReac Type Severity Reaction Status Date / Time Bactrim Allergy Severe edema Unverified 05/23/17 00:18 face/lips/tongue sulfamethoxazole Allergy Severe edema Unverified 08/18/18 14:16 face/lips/tongue trimethoprim Allergy Severe edema Unverified 08/18/18 14:16 face/lips/tongue latex Allergy Mild LOCAL SKIN Unverified 08/18/18 14:16 REACTION niacin Allergy Mild RASH Unverified 08/18/18 14:16 Cipro AdvReac Intermediate GI SYMPTOMS Verified 05/23/17 00:18 ciprofloxacin AdvReac Intermediate GI SYMPTOMS Verified 08/18/18 14:16 metronidazole AdvReac Intermediate GI SYMPTOMS Verified 08/18/18 14:16 naproxen AdvReac Intermediate BURNING Unverified 08/18/18 14:16 STOMACH Consultations 08/18/18 15:32 ED Decision to Admit Stat 08/18/18 17:45 Consult Cardiology Routine Procedures Performed Operation Date: 08/18/18 16:15 Actual Procedures p Pacer with A/V Leads (Dual) - Feli Baird DO s Venogram, Unilateral - Feli Baird DO Ordered Studies 08/18/18 16:30 EP Lab Images for PACS ONCE EP Lab Images for PACS ONCE Hospital Course (1) Symptomatic bradycardia: (2) S/P placement of cardiac pacemaker: Per admitting service notes: This is an 83yo F with a PMH of tachy-cierra syndrome, DM II, Sjogren's syndrome with interstitial lung disease on 2L NC O2, HTN, CKD III and other medical problems listed below who presents with shortness of breath and lightheadedness starting this morning and was found to have second degree heart block. -Developed shortness of breath, lightheadedness and chest tightness in the morning of admission -Has history of tachy-cierra syndrome with upcoming pacemaker placement planned -EKG with second degree block with 2:1 conduction block -Evaluated by in ED and was taken for pacemaker placement -Cardiology consulted Monitor on telemetry unit August 19, 2018 Status post dual-chamber pacemaker insertion on August 18, [address] Haynes Tolerated the procedure well Usual metoprolol 50 mg twice a day restarted, heart rate remaining in the 80s Patient asymptomatic Evaluated by access coordinator Dr. Mccormick, cleared for discharge Follow-up with cardiology clinic for recheck, the clinic will be calling her for the appointment Post pacemaker placement instructions given (3) Sjogren's syndrome with lung involvement: Respiratory status stable Continue maintenance dose prednisone 10mg daily -On 2-3L NC O2 for interstitial lung disease (4) Hypertension: Continue amlodipine and metoprolol (5) CKD (chronic kidney disease), stage III: At baseline. (6) Diabetes mellitus, type II: A1c of 7 in July 2018 Continue usual DM medications Outpatient follow-up (7) Retinal vein occlusion: Follows with Dr. Arvizu at [facility] for injections (8) Temporal arteritis: Recently high dose steroids were discontinued and patient was resumed on maintence prednisone for Sjogren's -Tem[place] [facility] [place] (9) Dyslipidemia: Continue Crestor (10) GERD (gastroesophageal reflux disease): Continue PPI Disposition Follow-up with primary care physician in 1 week, scheduling office close today, the clinic will be calling the patient with appointment Follow-up with cardiology clinic as scheduled for pacemaker check, clinic will call the patient for the appointment Total Time Total Time Spent Total Time Spent (In Minutes): 40 minutes Discharge Plan Discharge Items Patient Disposition: Home - Self-Care Reason For Visit: SYMPTOMATIC BRADYCARDIA Discharge Diagnosis: SYMPTOMATIC BRADYCARDIA Discharge Goals: Diagnostic testing and Therapeutic intervention Activity: As commented below Activity Comment: do not lift the left elbow over the left shoulder for 1 month Lifting: No more than 10 pounds Lifting Comment: do not lift more than 10 pounds with the left arm for 2 weeks Bathing: Keep incision dry Bathing Comment: can shower sunday 08/20 let water run over the incision do not scrub it Exercise/Sports: Wait until after follow-up appointment Driving/Machine Use Comment: NO DRIVING Non-emergency contact: Primary Care Provider and Housing Quality Standard Inspector Call non-emergency contact if: you have any medication questions, your pain is not controlled, your pain is worsening, you have a fever, your wound has increased redness, your wound has increased drainage and your wound pain has increased Follow-up/Referrals: Pilar Mohamud, [Primary Care Provider] - Diet: Carb Consistent or DM2 and Heart Healthy Addtl Provider Instructions: can remove the pressure dressing 08/19 call [facility]iology to change your device wound check to sunday 08/27 if you notice any swelling call Dr. Baird's office immediately Follow-up up with primary care physician in 3 to 5 days. The clinic will be calling you for the appointment date and time. Call primary care physician or return to the ER immediately if with recurrence or worsening of symptoms, Increasing swelling, pain, redness, bruising, discharge on the incision site. Prescriptions: Continued albuterol sulfate 90 mcg/actuation Hfa Aerosol Inhaler 2 puff INHALATION Q6H PRN (Reason: sob/wheezing) RF: 0 amlodipine 5 mg Tablet 5 mg PO DAILY RF: 0 Artificial Tears (PF) 0.1-0.3 % Dropperette 1 drp OPHTHALMIC (EYE) HS RF: 0 rosuvastatin [Crestor] 10 mg Tablet 10 mg PO DAILY RF: 0 metformin 500 mg Tablet Extended Release 24 Hr 500 mg PO BID RF: 0 Dulera 100-5 mcg/actuation Hfa Aerosol Inhaler 2 puff INHALATION Q12H RF: 0 omeprazole 20 mg Tablet,Delayed Release (Dr/Ec) 20 mg PO DAILY RF: 0 levothyroxine 50 mcg Tablet 50 mcg PO DAILY RF: 0 triamcinolone acetonide 0.1 % Cream 1 applic TOPICAL BID RF: 0 metoprolol succinate 50 mg tablet extended release 24 hr 50 mg PO BID RF: 0 prednisone 5 mg tablet 10 mg PO DAILY RF: 0 erythromycin 5 mg/gram (0.5 %) ointment 1 applic ophthalmic (eye) QID RF: 0 calcium polycarbophil [Fiber (calcium polycarbophil)] 625 mg Tablet 1,250 mg PO DAILY RF: 0 docusate sodium 100 mg Tablet 100 mg PO BID PRN (Reason: Constipation) RF: 0 ipratropium bromide 0.02 % solution 0.5 mg inhalation Q4H PRN (Reason: wheezing or sob) RF: 0 Probiotic 3 billion cell Capsule 3,000 mmu cells PO DAILY RF: 0 Ocuvite Eye Plus Multi 200-15-150 mcg Tablet 2 tab PO DAILY RF: 0 acetaminophen [Acetaminophen Extra Strength] 500 mg Tablet 1,000 mg PO BID PRN (Reason: Pain) RF: 0 Stand-Alone Forms: [facility] Discharge Orders: Discharge Order (Routine); Ordered 08/19/18 Ordered By: Carl Marquez Admission Data Admit Date/Time: 08/18/18 16:30 Attending Provider: Carl Marquez Admit Provider: Bandar Gaytan Primary Care Provider: Pilar Mohamud Other Providers: Bandar Gaytan ; Tian Mccormick Service: Telemetry Other Interventions: Discharge Summary Assessment (RN) Last Done: 08/19/18 14:52 DC Date/Time DO NOT enter until pt leaves facility: 08/19/18 15:31
--- NOTE | 2018-09-01 01:14 | Operative Report ---
DATE OF OPERATION: 08/18/2018 PREOPERATIVE DIAGNOSIS: Tachybrady syndrome. POSTOPERATIVE DIAGNOSIS: Tachybrady syndrome. PROCEDURE: Dual chamber rate responsive permanent pacemaker under fluoroscopic guidance. SURGEON: Feli Baird DO CLERICAL AND ADMINISTRATIVE WORKERS: None. ANESTHESIA: Monitored conscious sedation administered under my supervision by Katie Toure. Start time 1630, end time 1739. A total of 5 mg Versed and 100 mcg of fentanyl. INTRAVENOUS FLUIDS: 31 mL. ANTIBIOTICS: 1 gram of Ancef. BLOOD LOSS: 10 mL. URINE OUTPUT: Not applicable. SPECIMENS: None. FINDINGS: See below. DRAINS: None. INDICATIONS: This is an 83-year-old female with past medical history for sinus tachycardia, paroxysmal atrial tachycardia, chronic diastolic heart failure, [place] Heart Association class 2, hypertension, mild aortic stenosis, hyperlipidemia, pulmonary hypertension, diabetes, Sjogren's and autoimmune hepatitis, on high dose chronic prednisone and degenerative disc disease. I had seen the patient on 08/17/2018 urgently due to symptomatic tachybrady syndrome and at that time I had recommended her pacemaker on 08/18/2018. However, she declined and wanted to wait a week. However, today, she ended up in the Emergency Room symptomatic with 2:1 heart block, so we urgently brought her straight from the Emergency Room into the Electrophysiology Lab to do a dual chamber pacemaker. CONSENT: Consent was obtained prior to the patient going into electrophysiology lab. The patient was informed of risks, benefits and alternatives to the procedure. Risks include but not limited to sudden cardiac , cardiac arrhythmias, cerebrovascular accident, myocardial infarction, injury to the blood vessels, chamber of the heart, lungs, bleeding and infection. The patient understood these risks and agreed to the procedure as planned. Informed consent was obtained.. DESCRIPTION OF THE PROCEDURE: The patient was brought into the electrophysiology lab in fasting state. She was connected to continuous cardiac monitoring. A timeout was performed to ensure patient identity and procedure correctly. The patient was prepped and draped over the left infraclavicular space in normal surgical standard fashion. Monitored conscious sedation was given throughout the procedure for patient's comfort level. [place] precautions were maintained throughout the entire procedure. A 10 mL of 1% lidocaine and bupivacaine mixture were given within the left deltopectoral groove. Incision was made in the left deltopectoral groove. Blunt dissection was performed down to identify the cephalic vein; however, none could be identified, so peripheral venogram using 10 mL of saline followed by 10 mL flush were performed to identify the axillary vein. Axillary venous access was obtained through a needle stick. A guidewire was inserted without any resistance. An 8-[place] sheath was inserted through the guidewire without any resistance. Dilator was removed and a second guidewire was inserted through the 8-[place] sheath to allow for retained venous access. Sheath was removed, flushed, and dilator reinserted over it and it was reinserted along the guidewire. The guidewire and dilator removed. The right ventricular lead was then advanced into right ventricle and positioned into right ventricular apex under fluoroscopic guidance. There was adequate pacing and sensing thresholds and no diaphragmatic stimulation with high output pacing. The 8-[place] sheath was peeled away and the lead was fixated to pectoralis muscle using 0 silk suture. A second 8-[place] sheath was inserted over the retained guidewire without any resistance. Guidewire and dilator removed. The right atrial lead was then advanced into right atrium and positioned into right atrial appendage under fluoroscopic guidance. There was adequate pacing and sensing thresholds and no diaphragmatic stimulation with high output pacing. The 8-[place] sheath was peeled away and the lead was fixated to pectoralis muscle using 0 silk suture. A pacemaker pocket was created using blunt dissection over the pectoralis muscle within the pectoral fascia. The pocket was flushed with copious amounts of bacitracin and saline wash and inspected for hemostasis. The pulse generator was then attached to the leads, making sure that the pins were in appropriate position, passed set screw and set screws were all tightened. The pulse generator and placed in the pocket, making sure that the leads were lying flat beneath the device. A stay stitch using 0 silk suture was used to secure this pectoralis muscle. Nir stat was placed in the pocket. Then, the incision was closed in 3-layer fashion using 2-0 Vicryl interrupted followed by 3-0 Vicryl interrupted suture followed by a 4-0 Monocryl running stitch and Dermabond was applied. EQUIPMENT: 1. Pulse generator is a [employer] [place] XT DR DAVID Davila [id number], serial number [id number]. 2. Right atrial lead is a Medtronic 5076-52 cm, serial number [id number]. 3. Right ventricular lead is a [employer] 5076-58 cm, serial number [id number]. INTRAOPERATIVE TESTIN. Right atrial lead: P-waves 2.3 millivolts, impedance 513 ohms, threshold 0.5 volts at 0.4 milliamps. 2. Right ventricular lead: R-wave 14.1 millivolts, impedance 608 ohms, threshold 0.4 volts at 0.4 milliamps. FINAL MEASUREMENTS THROUGH THE DEVICE: 1. P waves 2 millivolts, impedance 551 ohms, threshold 0.5 volts at 0.4 milliseconds. 2. Right ventricular lead: R-wave 7.5 millivolts, impedance 627 ohms, threshold 1 volt at 0.4 milliseconds. FINAL PARAMETERS: DDDR 60/130, right atrial amplitude 3.5 volts, pulse width 0.4 milliseconds, sensitivity 0.3 millivolts. Right ventricular amplitude 3.5 volts, pulse width 0.4 milliseconds, sensitivity 1.2 millivolts. IMPRESSION: Successful implantation of dual chamber responsive permanent pacemaker under fluoroscopic guidance with a peripheral venogram performed urgently secondary to tachybrady syndrome. PLAN: Monitor patient overnight, 12-lead ECG, chest x-ray. She is not allowed to lift left elbow or left shoulder for 1 month. She cannot lift more than 10 pounds with the left arm for 2 weeks. She can shower in 2 days, let water run over the incision, do not scrub it. She will follow up in our [facility] office for device and wound check in 1 week's time. I attest to the content of the Intraoperative Record and any orders documented therein. Any exceptions are noted below. YAAKOV
--- NOTE | 2018-09-01 08:10 | Operative Report ---
DATE OF OPERATION: 08/18/2018 ADDENDUM DESCRIPTION OF THE PROCEDURE: The patient was brought into the electrophysiology lab in fasting state. She was connected to continuous cardiac monitoring. A timeout was performed to ensure patient identity and procedure correctly. The patient was prepped and draped over the left infraclavicular space in normal surgical standard fashion. Monitored conscious sedation was given throughout the procedure for patient's comfort level. [place] precautions were maintained throughout the entire procedure. A 10 mL of 1% lidocaine and bupivacaine mixture were given within the left deltopectoral groove. Incision was made in the left deltopectoral groove. Blunt dissection was performed down to identify the cephalic vein; however, none could be identified, so peripheral venogram using 10 mL of saline followed by 10 mL flush were performed to identify the axillary vein. Axillary venous access was obtained through a needle stick. A guidewire was inserted without any resistance. An 8-[place] sheath was inserted through the guidewire without any resistance. Dilator was removed and a second guidewire was inserted through the 8-[place] sheath to allow for retained venous access. Sheath was removed, flushed, and dilator reinserted over it and it was reinserted along the guidewire. The guidewire and dilator removed. The right ventricular lead was then advanced into right ventricle and positioned into right ventricular apex under fluoroscopic guidance. There was adequate pacing and sensing thresholds and no diaphragmatic stimulation with high output pacing. The 8-[place] sheath was peeled away and the lead was fixated to pectoralis muscle using 0 silk suture. A second 8-[place] sheath was inserted over the retained guidewire without any resistance. Guidewire and dilator removed. The right atrial lead was then advanced into right atrium and positioned into right atrial appendage under fluoroscopic guidance. There was adequate pacing and sensing thresholds and no diaphragmatic stimulation with high output pacing. The 8-[place] sheath was peeled away and the lead was fixated to pectoralis muscle using 0 silk suture. A pacemaker pocket was created using blunt dissection over the pectoralis muscle within the pectoral fascia. The pocket was flushed with copious amounts of bacitracin and saline wash and inspected for hemostasis. The pulse generator was then attached to the leads, making sure that the pins were in appropriate position, passed set screw and set screws were all tightened. The pulse generator and placed in the pocket, making sure that the leads were lying flat beneath the device. A stay stitch using 0 silk suture was used to secure this pectoralis muscle. Nir stat was placed in the pocket. Then, the incision was closed in 3-layer fashion using 2-0 Vicryl interrupted followed by 3-0 Vicryl interrupted suture followed by a 4-0 Monocryl running stitch and Dermabond was applied. EQUIPMENT: 1. Pulse generator is a [employer] [place] XT DR DAVID Davila [id number], serial number [id number]. 2. Right atrial lead is a Medtronic 5076-52 cm, serial number [id number]. 3. Right ventricular lead is a Medtronic 5076-58 cm, serial number [id number]. INTRAOPERATIVE TESTIN. Right atrial lead: P-waves 2.3 millivolts, impedance 513 ohms, threshold 0.5 volts at 0.4 milliamps. 2. Right ventricular lead: R-wave 14.1 millivolts, impedance 608 ohms, threshold 0.4 volts at 0.4 milliamps. FINAL MEASUREMENTS THROUGH THE DEVICE: 1. P waves 2 millivolts, impedance 551 ohms, threshold 0.5 volts at 0.4 milliseconds. 2. Right ventricular lead: R-wave 7.5 millivolts, impedance 627 ohms, threshold 1 volt at 0.4 milliseconds. FINAL PARAMETERS: DDDR 60/130, right atrial amplitude 3.5 volts, pulse width 0.4 milliseconds, sensitivity 0.3 millivolts. Right ventricular amplitude 3.5 volts, pulse width 0.4 milliseconds, sensitivity 1.2 millivolts. IMPRESSION: Successful implantation of dual chamber responsive permanent pacemaker under fluoroscopic guidance with a peripheral venogram performed urgently secondary to tachybrady syndrome. PLAN: Monitor patient overnight, 12-lead ECG, chest x-ray. She is not allowed to lift left elbow or left shoulder for 1 month. She cannot lift more than 10 pounds with the left arm for 2 weeks. She can shower in 2 days, let water run over the incision, do not scrub it. She will follow up in our [facility] office for device and wound check in 1 week's time. I attest to the content of the Intraoperative Record and any orders documented therein. Any exception s are noted below.
== END 2018-08-19 15:31 | disposition home or self-care (01) | DRG 243 ==
LOC: ED 13:38 → CC 16:22 → 2S 16:30

== ENCOUNTER 2018-08-30 22:49 | Inpatient (IN) ==
[2018-08-30] MEDS ORDERED: ACETAMINOPHEN 1,000 MG/100 ML VIAL IV STA (23:30)
[2018-08-30] MEDS ORDERED: SODIUM CHLORIDE 0.9% 1000ML 500 ML IV ONE (23:30)
[2018-08-30] MEDS ORDERED: ONDANSETRON INJ 2 MG/ML 2 ML VIAL IV STA (23:30)
[2018-08-31 00:15] LABS: Basophils # (auto) 0.01 K/uL (0-0.2); Basophils % (auto) 0.1 %; Eosinophils # (auto) 0.02 K/uL (0-0.5); Eosinophils % (auto) 0.2 %; Hemoglobin 12.2 g/dL (12.0-16.0); Immature Granulocytes # (auto) 0.03 K/uL (0.00-0.02); Immature Granulocytes % (auto) 0.3 %; Lymphocytes # (auto) 0.68 K/uL (1.2-3.4); Lymphocytes % (auto) 6.2 %; Mean Corpuscular Hgb Conc 33.9 g/dL (32-36); Mean Platelet Volume 9.2 fL (7.4-10.4); Monocytes # (auto) 0.37 K/uL (0.11-0.59); Monocytes % (auto) 3.4 %; Neutrophils # (auto) 9.82 K/uL (1.4-6.5); Neutrophils % (auto) 89.8 %; Platelet Count 191 K/uL (130-400); RDW Coefficient of Variation 13.2 % (11.5-14.5); RDW Standard Deviation 46.6 fL (36.4-46.3); Red Blood Count 3.71 M/uL (4.2-5.4); White Blood Count 10.93 K/uL (4.8-10.8)
[2018-08-31 00:33] LABS: Alanine Aminotransferase 23 U/L (12-78); Albumin Level 3.4 gm/dl (3.4-5.0); Aspartate Aminotransferase 21 U/L (15-37); BUN Creatinine Ratio 26.2 (10-20); Bilirubin Direct < 0.1 mg/dl (0-0.2); Blood Urea Nitrogen 21 mg/dl (7-18); Calcium 8.5 mg/dl (8.5-10.1); Carbon Dioxide 32 mmol/L (21-32); Chloride 95 mmol/L (98-107); Creatinine Clr Calc Pharmacy 60.4 ml/min; Est GFR (African American) 81.4; Est GFR (Non-African American) 70.2; Glucose 160 mg/dl (70-99); Magnesium 1.7 mg/dl (1.8-2.4); Sodium 133 mmol/L (136-145)
[2018-08-31 00:38] LABS: Alkaline Phosphatase 60 U/L (45-117); Bilirubin,Total 0.4 mg/dl (0.2-1); Total Protein 7.1 gm/dl (6.4-8.2); Troponin I 0.035 ng/ml (0-0.045)
[2018-08-31 00:40] LABS: Prothrombin Time 10.4 Seconds (9.0-12.0)
[2018-08-31] MEDS ORDERED: VANCOMYCIN CONSULT ACTIVE PRN (00:41)
[2018-08-31] MEDS ORDERED: cefTRIAXone SODIUM 1,000 MG/50 ML BAG IV STA (00:41)
[2018-08-31] MEDS ORDERED: VANCOMYCIN HCL 1,500 MG in SODIUM CHLORIDE 0.9% 500 ML IV ONE (00:41)
[2018-08-31] MEDS ORDERED: METOPROLOL TARTRATE 1 MG/ML VIAL IV STA (01:07)
[2018-08-31] MEDS ORDERED: PROMETHAZINE 12.5 MG/50.5 ML BAG IV STA (01:14)
[2018-08-31] MEDS ORDERED: IOVERSOL 100ml IV PRN (01:39)
[2018-08-31 01:53] LABS: Appearance Urine Clear (Clear); Bacteria Urine Automated Negative (Negative); Bilirubin Urine Negative (Negative); Blood Urine Negative (Negative); Cast Urine Automated 0 /lpf (0-5); Color Urine Yellow; Glucose Urine UA Negative (Negative); Ketones Urine Negative (Negative); Leukocyte Esterase Urine Negative (Negative); Nitrite Urine Negative (Negative); Protein Urine Trace (Negative); RBC Urine Automated 0-4 /hpf (0-4); Specific Gravity Urine 1.017 (1.000-1.030); Urobilinogen Urine Negative (Negative)
[2018-08-31 02:14] LABS: NT Pro B Type Natriuretic Pept 946 pg/ml (0-1800)
--- NOTE | 2018-08-31 02:19 | History & Physical Report ---
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 difficile PCU Cultures, IV Vancomycin, Zosyn Stool C. difficile Monitor BP, may need stress dose IV steroids if with hypotension for possible adrenal insufficiency Cardio consult RE CIED infection ISS BG goal 1 40-1 80, may need basal insulin to attain goal DVT prophylaxis. Lovenox subcu Full code Patient's daughter requesting updates from providers. Ms. Norah Tavarez, contact #[phone]. History of Present Illness Chief Complaint: Abdominal pain nausea vomiting, headache Primary Care Provider: Pilar Mohamud, History obtained from patient, family, and records. Medical history significant for sick sinus syndrome status post pacemaker, Sjogren's syndrome on chronic steroid Rx, ILD/autoimmune hepatitis as per records, hypertension, history of temporal arteritis as per records, DM2 on oral meds. Recent confinement last week for symptomatic bradycardia status post PPM. Good PPM function, small dried area of drainage noted on incision site on outpatient follow-up w/ [facility] few days ago. Yesterday afternoon, patient noted nausea, emesis, and fever at home. Achy epigastric discomfort and headache symptoms. No chest pain, no S OB. Usual loose stools which patient attributes to home Prilosec. Drainage expressed from pacemaker incision site at the emergency room. Patient received Vancomycin and Ceftriaxone at the ER for sepsis. Medical History as above Surgical History : PPM, eye surgery, uterine biopsy, liver biopsy, BTL Family History : Heart disease, bladder cancer, dementia, stroke Personal/Social history : Non-smoker, no EtOH intake, homemaker in her younger years Allergies Allergy/AdvReac Type Severity Reaction Status Date / Time Bactrim Allergy Severe edema Unverified 05/23/17 00:18 face/lips/tongue sulfamethoxazole Allergy Severe edema Unverified 08/30/18 23:11 face/lips/tongue trimethoprim Allergy Severe edema Unverified 08/30/18 23:11 face/lips/tongue latex Allergy Mild LOCAL SKIN Unverified 08/30/18 23:11 REACTION niacin Allergy Mild RASH Unverified 08/30/18 23:11 Cipro AdvReac Intermediate GI SYMPTOMS Verified 05/23/17 00:18 ciprofloxacin AdvReac Intermediate GI SYMPTOMS Verified 08/30/18 23:11 metronidazole AdvReac Intermediate GI SYMPTOMS Verified 08/30/18 23:11 naproxen AdvReac Intermediate BURNING Unverified 08/30/18 23:11 STOMACH Home Medications Home Medications Medication Instructions Recorded Confirmed Type Artificial Tears (PF) 1 drp OPHTHALMIC (EYE) HS 07/30/18 08/30/18 History Dulera 2 puff INHALATION Q12H 07/30/18 08/30/18 History albuterol sulfate 2 puff INHALATION Q6H PRN 07/30/18 08/30/18 History amlodipine 5 mg PO DAILY 07/30/18 08/30/18 History levothyroxine 50 mcg PO DAILY 07/30/18 08/30/18 History metformin 500 mg PO BID 07/30/18 08/30/18 History omeprazole 20 mg PO DAILY 07/30/18 08/30/18 History rosuvastatin [Crestor] 10 mg PO DAILY 07/30/18 08/30/18 History triamcinolone acetonide 1 applic TOPICAL BID 07/30/18 08/30/18 History Ocuvite Eye Plus Multi 2 tab PO DAILY 08/18/18 08/30/18 History Probiotic 3,000 mmu cells PO DAILY 08/18/18 08/30/18 History acetaminophen [Acetaminophen Extra 1,000 mg PO BID PRN 08/18/18 08/30/18 History Strength] calcium polycarbophil [Fiber 1,250 mg PO DAILY 08/18/18 08/30/18 History (calcium polycarbophil)] docusate sodium 100 mg PO BID PRN 08/18/18 08/30/18 History erythromycin 1 applic OPHTHALMIC (EYE) QID 08/18/18 08/30/18 History ipratropium bromide 0.5 mg INHALATION Q4H PRN 08/18/18 08/30/18 History metoprolol succinate 50 mg PO BID 08/18/18 08/30/18 History prednisone 10 mg PO DAILY 08/18/18 08/30/18 History Past Med/Surg History Medical History Sjogren's syndrome with lung involvement (Chronic) Retinal vein occlusion (Chronic) Pulmonary hypertension (Chronic) GERD (gastroesophageal reflux disease) (Chronic) Dyslipidemia (Chronic) CKD (chronic kidney disease), stage III (Chronic) Hypertension (Chronic) Osteoporosis (Chronic) 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 current occupational status: retired Other Information That Helps Us Care for You: No Feels Safe at Home: Yes Safety Concerns: Feels Safe At This Time Smoking Status: Never smoker Hx Alcohol Use: Yes Alcohol type: beer Hx Substance Use: No Review of Systems Review of Systems: As per HPI, all 10 systems reviewed, all other ROS negative Physical Exam Physical Exam: GENERAL: Wane, ill looking, no respiratory distress SKIN: Normal color, warm HEENT: Bespectacled, pink palpebral conjunctivae, no ptosis, dry buccal mucosa NECK : Supple, no tenderness CHEST : CTA, dried pus noted on left pacemaker pocket incision, minimal induration, no overt tenderness HEART : Tachycardic, no obvious murmurs ABDOMEN: Some distention, nontender EXTREMITIES : No LE swelling/tenderness, no other conspicuous deformities noted NEUROLOGIC : Coherent, no facial asymmetry, no other gross focality Results & Data Vital Signs (Past 12 Hours) Vital Signs Temp Pulse Resp BP Pulse Ox 08/31/18 01:36 110 H 32 H 130/78 95 08/31/18 01:00 114 H 24 98 08/31/18 00:30 90 34 H 97 08/31/18 00:00 101 H 33 H 98 08/30/18 23:30 122 H 32 H 98 08/30/18 23:00 107 H 24 100 07/15/19 22:59 38.1 C H 107 H 20 165/119 H 96 08/30/18 22:58 108 H 20 98 08/30/18 22:55 105 H 29 H 165/119 H 99 Laboratory Results Laboratory Results WBC 10.93 K/uL (4.8-10.8) H 08/30/18 23:59 RBC 3.71 M/uL (4.2-5.4) L 08/30/18 23:59 Hgb 12.2 g/dL (12.0-16.0) 08/30/18 23:59 Hct 36.0 % (37-47) L 08/30/18 23:59 MCV 97.0 fL (80-100) 08/30/18 23:59 MCH 32.9 pg (25-34) 08/30/18 23:59 MCHC 33.9 g/dL (32-36) 08/30/18 23:59 RDW Std Deviation 46.6 fL (36.4-46.3) H 08/30/18 23:59 RDW Coeff of Gabriel 13.2 % (11.5-14.5) 08/30/18 23:59 Plt Count 191 K/uL (130-400) 08/30/18 23:59 MPV 9.2 fL (7.4-10.4) 08/30/18 23:59 Immature Gran % (Auto) 0.3 % 08/30/18 23:59 Neut % (Auto) 89.8 % 08/30/18 23:59 Lymph % (Auto) 6.2 % 08/30/18 23:59 [place] % (Auto) 3.4 % 08/30/18 23:59 Eos % (Auto) 0.2 % 08/30/18 23:59 Baso % (Auto) 0.1 % 08/30/18 23:59 Immature Gran # (Auto) 0.03 K/uL (0.00-0.02) H 08/30/18 23:59 Neut # (Auto) 9.82 K/uL (1.4-6.5) H 08/30/18 23:59 Lymph # (Auto) 0.68 K/uL (1.2-3.4) L 08/30/18 23:59 [place] # (Auto) 0.37 K/uL (0.11-0.59) 08/30/18 23:59 Eos # (Auto) 0.02 K/uL (0-0.5) 08/30/18 23:59 Baso # (Auto) 0.01 K/uL (0-0.2) 08/30/18 23:59 PT 10.4 Seconds (9.0-12.0) 08/30/18 23:59 INR 1.0 (0.9-1.1) 08/30/18 23:59 Sodium 133 mmol/L (136-145) L 08/30/18 23:59 Potassium 4.0 mmol/L (3.5-5.1) 08/30/18 23:59 Chloride 95 mmol/L (98-107) L 08/30/18 23:59 Carbon Dioxide 32 mmol/L (21-32) 08/30/18 23:59 Anion Gap 6.0 (3-11) 08/30/18 23:59 BUN 21 mg/dl (7-18) H 08/30/18 23:59 Creatinine 0.79 mg/dl (0.6-1.2) 08/30/18 23:59 Est Cr Clr Drug Dosing 60.4 ml/min 08/30/18 23:59 Est GFR ( Amer) 81.4 08/30/18 23:59 Est GFR (Non-Af Amer) 70.2 08/30/18 23:59 BUN/Creatinine Ratio 26.2 (10-20) H 08/30/18 23:59 Glucose 160 mg/dl (70-99) H 08/30/18 23:59 Lactate 1.2 mmol/L (0.4-2.0) 08/30/18 23:59 Calcium 8.5 mg/dl (8.5-10.1) 08/30/18 23:59 Magnesium 1.7 mg/dl (1.8-2.4) L 08/30/18 23:59 Total Bilirubin 0.4 mg/dl (0.2-1) 08/30/18 23:59 Direct Bilirubin < 0.1 mg/dl (0-0.2) 08/30/18 23:59 AST 21 U/L (15-37) 08/30/18 23:59 ALT 23 U/L (12-78) 08/30/18 23:59 Alkaline Phosphatase 60 U/L (45-117) 08/30/18 23:59 Troponin I 0.035 ng/ml (0-0.045) 08/30/18 23:59 NT-Pro-B Natriuret Pep 946 pg/ml (0-1800) 08/30/18 23:59 Total Protein 7.1 gm/dl (6.4-8.2) 08/30/18 23:59 Albumin 3.4 gm/dl (3.4-5.0) 08/30/18 23:59 Lipase 298 U/L (73-393) 08/30/18 23:59 Urine Color Yellow 08/31/18 01:35 Urine Appearance Clear (Clear) 08/31/18 01:35 Urine pH 7.0 (4.5-7.5) 08/31/18 01:35 Ur Specific [place] 1.017 (1.000-1.030) 08/31/18 01:35 Urine Protein Trace (Negative) H 08/31/18 01:35 Urine Glucose (UA) Negative (Negative) 08/31/18 01:35 Urine Ketones Negative (Negative) 08/31/18 01:35 Urine Blood Negative (Negative) 08/31/18 01:35 Urine Nitrite Negative (Negative) 08/31/18 01:35 Urine Bilirubin Negative (Negative) 08/31/18 01:35 Urine Urobilinogen Negative (Negative) 08/31/18 01:35 Ur Leukocyte Esterase Negative (Negative) 08/31/18 01:35 Urine WBC (Auto) 1-5 /hpf (0-5) 08/31/18 01:35 Urine RBC (Auto) 0-4 /hpf (0-4) 08/31/18 01:35 U Hyaline Cast (Auto) 0 /lpf (0-5) 08/31/18 01:35 U Epithel Cells (Auto) 5-10 /lpf (0-5) H 08/31/18 01:35 Urine Bacteria (Auto) Negative (Negative) 08/31/18 01:[address] head initial read: No acute intracranial hemorrhage, mass-effect, midline shift, hydrocephalus, or infarct. CT chest initial read: Cardiomegaly, pacemaker electrodes terminating in the right atrium and right ventricle. Mild fat stranding surrounding the pacemaker in the left chest could be due to postop changes or soft tissue infection. No fluid collection is seen to suggest abscess CT abdomen pelvis initial read: Cholelithiasis without cholecystitis left inferior kidney subcentimeter cyst. No bowel obstruction. Appendix is not identified. Degenerative disc disease L5-S1. Scoliosis. EKG as per my interpretation: Rate NSR, LAD, LAFB, LAE, LVH, T wave inversions anterolateral leads, PVCs
[2018-08-31] MEDS ORDERED: PIPERACILL/TAZOBAC CONSULT ACTIVE PRN ×2 (02:20→04:23)
[2018-08-31] MEDS ORDERED: PIPERACILLIN/TAZOBACTAM 4.5 GM/120 ML BAG IV ONE (02:20)
[2018-08-31] MEDS ORDERED: KETOROLAC TROMETHAMINE 15 MG/ML VIAL IV ONE (03:20)
[2018-08-31] MEDS ORDERED: CEFEPIME 2,000 MG in SYRINGE 7.5 ML IV STA (03:30)
[2018-08-31] MEDS ORDERED: CARBOHYDRATES FOR HYPOGLYCEMIA PO PRN (03:46)
[2018-08-31] MEDS ORDERED: GLUCOSE 10 TABS/TUBE PO PRN (03:46)
[2018-08-31] MEDS ORDERED: PROMETHAZINE HCL 12.5 MG in SODIUM CHLORIDE 0.9% 50 ML IV PRN (03:46)
[2018-08-31] MEDS ORDERED: MAGNESIUM SULFATE / D5W 1 GM/100 ML BAG IV ONE ×2 (03:46→10:45)
[2018-08-31] MEDS ORDERED: DEXTROSE 50% 50 ML SYRINGE IV PRN (03:46)
[2018-08-31] MEDS ORDERED: TRAMADOL HCL 50 MG TABLET PO PRN (03:46)
[2018-08-31] MEDS ORDERED: GLUCAGON FOR INJ 1 MG VIAL SQ PRN (03:46)
[2018-08-31] MEDS ORDERED: GLUCOSE 40% GEL 15 GM TUBE PO PRN (03:46)
[2018-08-31] MEDS ORDERED: PIPERACILLIN/TAZOBACTAM 4.5 GM in DEXTROSE 5% 100 ML IV STA (04:36)
[2018-08-31] MEDS: SODIUM CHLORIDE 0.9% 1000ML 1,000 ML IV SCH ×3 (04:44→19:45)
--- NOTE | 2018-08-31 05:19 | Emergency Department Note ---
Entered by Caren Tam acting as a scribe for ED Provider Note Name: María Kunz Age: 83 F Arrives Via: EMS Informant: Patient CC: Illness HPI: The patient is an 83 year old female presenting to the Emergency Department complaining of a persistent illness starting 8 hours ago. The patient reports that she feels very sick. She states that earlier today she got a headache. She explains that her abdomen began to hurt and that she is currently nauseous. She describes her abdominal pain as a cramping sensation. She adds that she took Tylenol for her symptoms INTELLIGENCE INTERN that did not help. The patient reports that she had a pacemaker placed 2 weeks ago. She states that she normally uses 2L of oxygen via nasal cannula at home. She notes that EMS gave her Zofran 4 mg and 500 cc of fluid INTELLIGENCE INTERN. The patients family reports that the patient has many allergies and thinks that the patient could be allergic to something. The patient denies chest pain, cough, recent falls, syncope, rashes, lower extremity swelling and taking any recent antibiotics. ROS: See above HPI for pertinent positives & negatives. A total of 10 systems reviewed and were otherwise negative. Past Medical History: DM, GERD, CKD, HTN, Osteoporosis, Sjogren's syndrome. Past Surgical History: Tubal ligation, Appendectomy. Family History: Heart disease. Social History: Never a smoker. Feels safe at home. Retired. Home Medications: See home medication list. Allergies See allergies. Physical: Vitals: BP: 165/119, Pulse: 107, Respirations: 20, Temperature: 100.6F, O2 Saturation: 96, Delivery: Nasal Cannula 2L/min. Exam: GENERAL: Patient is uncomfortable appearing and in moderate distress. Holding vomit bag to face. EYES: No scleral icterus, unremarkable pupils. ENT: Mucous membranes dry, no nasal congestion. NECK: No masses appreciated, no meningismus, trachea is midline. RESPIRATORY: No dyspnea. Clear to auscultation and equal bilaterally. No wheeze, no rhonchi. CARDIOVASCULAR: Tachycardic with irregular beats. No murmurs, rubs, gallops appreciated. GASTROINTESTINAL: Abdomen soft. Mildly hyperactive bowel sounds without distention or tenderness. BACK: No midline tenderness, no CVA tenderness EXTREMITIES: Normal motion all extremities, no cyanosis, no edema. NEUROLOGIC: Alert and oriented, no acute motor or sensory deficits, no focal we akness, cranial nerves grossly intact. SKIN: Pacemaker site left upper chest. Slight amount white exudate draining from lateral/inferior aspect of incision. ED Course: 2323: Prior Medical Record, Triage/Nursing Notes, Medications, Allergies reviewed by Me. The patient was evaluated in room A12B, and a complete history and physical examination were performed. 0024: Nursing reports patient is short of breath. EKG obtained. 0038: I reevaluated the patient at his time. No further vomiting. Patient admits that she stills feels very weak. 0045: I [facility] the [facility] He will evaluate the patient for further management. Vital Signs: reviewed and remarkable for fever, tachy Labs: Reviewed and remarkable for essentially unremarkable. Lactate OK. Blood cultures obtained Interventions: Imaging: X ray results are stated below per my interpretation: Chest: 1 view: Indication: Fever. Moderate amount air in stomach increased from previous. Mild bilateral congestion. No infiltrate, no effusion. Pacemaker and wires in place/intact. EKG: Per My Interpretation: Indication: Sepsis: Sinus 80 bpm with multiple atrial as well as paced beats throughout without ischemia. Similar paced morphology to 08/19/18. Consults: Dr Miguel for further evaluation Blood pressure: Normal. No Referral necessary Disposition: Hospitalization Differentials: Differential: Viral, Pharyngitis, Cellulitis, Pneumonia, Influenza, Meningitis, Sepsis, Bacteremia, UTI/Pyelonephritis, Endocrine, Toxicologic, Post operative fever amongst other pathologies entertained. Medical Decision Makin yr old female with fevers, weakness and vomiting. On exam unwell appearing with tachy/fever and she has small exudation expresible from lateral/bottom portion of pacemaker incision. No significant erythema at this time thus difficulty to tell if this is reactive to glue/allergic vs infectious etiology. CXR without clear infiltrate, ua clear, and no abdominal TTP. Thus will treat empirically with cephalo and vanc. She was given 500ml IV fluids by EMS and I gave another 500ml for sepsis treatment. She did become increasingly more shob with IV fluids thus further fluids help as BP stable. Hospitalist in to see and management further. Impression: Fever, Tachycardia, Draining postoperative wound, Vomiting The scribe's documentation has been prepared under my direction and personally reviewed by me in its entirety. I confirm that the note above accurately reflects all work, treatment, procedures, and medical decision making performed by me. Jayme Flores MD Impression & Plan Fever, Tachycardia, Draining postoperative wound, Vomiting Past Med/Surg History Medical History Sjogren's syndrome with lung involvement (Chronic) Retinal vein occlusion (Chronic) Pulmonary hypertension (Chronic) GERD (gastroesophageal reflux disease) (Chronic) Dyslipidemia (Chronic) CKD (chronic kidney disease), stage III (Chronic) Hypertension (Chronic) Osteoporosis (Chronic) Central retinal vein occlusion of left eye (Chronic) Diverticulosis of colon (Chronic) GERD (gastroesophageal reflux disease) (Inactive) Surgical History Status post tubal ligation (Chronic) Status post appendectomy (Chronic) History of appendectomy (Resolved) Family History Other Heart disease Social History Preferred Language: [place]i Communication Ability: Effective 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 current occupational status: retired Other Information That Helps Us Care for You: No Feels Safe at Home: Yes Safety Concerns: Feels Safe At This Time Smoking Status: Never smoker Hx Alcohol Use: Yes Alcohol type: beer Hx Substance Use: No Results & Data Vital Signs Vital Signs - 24 hr 08/30/18 22:55 08/30/18 22:58 08/30/18 22:59 Temperature 38.1 C H Temperature Source Oral Sepsis Recent Fever Within 48 Hours Yes Sepsis New/Unexplained Change in Mental Status No Sepsis Action Taken by Nursing No Action Required Pulse Rate 105 H 108 H 107 H Pulse Rate from SpO2 Sensor 110 H 109 H Pulse Rhythm Regular Respiratory Rate 29 H 20 20 Respiratory Effort / Characteristics Non-Labored Respiratory Depth Normal Respiratory Pattern Regular Blood Pressure 165/119 H 165/119 H Blood Pressure Mean 134 134 Blood Pressure Position Lying Pulse Oximetry 99 98 96 Oxygen Delivery Method Nasal Cannula Oxygen Flow Rate 2 08/30/18 23:00 08/30/18 23:30 08/31/18 00:00 Temperature Temperature Source Sepsis Recent Fever Within 48 Hours Sepsis New/Unexplained Change in Mental Status Sepsis Action Taken by Nursing Pulse Rate 107 H 122 H 101 H Pulse Rate from SpO2 Sensor 111 H 112 H 79 Pulse Rhythm Respiratory Rate 24 32 H 33 H Respiratory Effort / Characteristics Respiratory Depth Respiratory Pattern Blood Pressure Blood Pressure Mean Blood Pressure Position Pulse Oximetry 100 98 98 Oxygen Delivery Method Oxygen Flow Rate 08/31/18 00:30 08/31/18 00:41 08/31/18 01:00 Temperature 38.1 C H Temperature Source Oral Sepsis Recent Fever Within 48 Hours Sepsis New/Unexplained Change in Mental Status Sepsis Action Taken by Nursing Pulse Rate 90 114 H Pulse Rate from SpO2 Sensor 89 113 H Pulse Rhythm Respiratory Rate 34 H 24 Respiratory Effort / Characteristics Respiratory Depth Respiratory Pattern Blood Pressure Blood Pressure Mean Blood Pressure Position Pulse Oximetry 97 98 Oxygen Delivery Method Oxygen Flow Rate 08/31/18 01:36 08/31/18 02:00 Temperature Temperature Source Sepsis Recent Fever Within 48 Hours Sepsis New/Unexplained Change in Mental Status Sepsis Action Taken by Nursing Pulse Rate 110 H 106 H Pulse Rate from SpO2 Sensor 112 H 106 H Pulse Rhythm Respiratory Rate 32 H 28 H Respiratory Effort / Characteristics Respiratory Depth Respiratory Pattern Blood Pressure 130/78 121/62 Blood Pressure Mean 95 81 Blood Pressure Position Pulse Oximetry 95 96 Oxygen Delivery Method Oxygen Flow Rate Home Medications Current Medication List: was personally reviewed by me Laboratory Data Attestation: I reviewed the patient's lab results. Result diagrams: 08/30/18 23:59 08/30/18 23:59 Lab Results 08/30/18 08/30/18 08/30/18 Range/Units 23:59 23:59 23:59 WBC 10.93 H (4.8-10.8) K/uL RBC 3.71 L (4.2-5.4) M/uL Hgb 12.2 (12.0-16.0) g/dL Hct 36.0 L (37-47) % MCV 97.0 (80-100) fL MCH 32.9 (25-34) pg MCHC 33.9 (32-36) g/dL RDW Std Deviation 46.6 H (36.4-46.3) fL RDW Coeff of Gabriel 13.2 (11.5-14.5) % Plt Count 191 (130-400) K/uL MPV 9.2 (7.4-10.4) fL Immature Gran % (Auto) 0.3 % Neut % (Auto) 89.8 % Lymph % (Auto) 6.2 % Kerr % (Auto) 3.4 % Eos % (Auto) 0.2 % Baso % (Auto) 0.1 % Immature Gran # (Auto) 0.03 H (0.00-0.02) K/uL Neut # (Auto) 9.82 H (1.4-6.5) K/uL Lymph # (Auto) 0.68 L (1.2-3.4) K/uL Kerr # (Auto) 0.37 (0.11-0.59) K/uL Eos # (Auto) 0.02 (0-0.5) K/uL Baso # (Auto) 0.01 (0-0.2) K/uL PT 10.4 (9.0-12.0) Seconds INR 1.0 (0.9-1.1) Sodium 133 L (136-145) mmol/L Potassium 4.0 (3.5-5.1) mmol/L Chloride 95 L (98-107) mmol/L Carbon Dioxide 32 (21-32) mmol/L Anion Gap 6.0 (3-11) BUN 21 H (7-18) mg/dl Creatinine 0.79 (0.6-1.2) mg/dl Est Cr Clr Drug Dosing 60.4 ml/min Est GFR ( Amer) 81.4 Est GFR (Non-Af Amer) 70.2 BUN/Creatinine Ratio 26.2 H (10-20) Glucose 160 H (70-99) mg/dl Lactate (0.4-2.0) mmol/L Calcium 8.5 (8.5-10.1) mg/dl Magnesium 1.7 L (1.8-2.4) mg/dl Total Bilirubin 0.4 (0.2-1) mg/dl Direct Bilirubin < 0.1 (0-0.2) mg/dl AST 21 (15-37) U/L ALT 23 (12-78) U/L Alkaline Phosphatase 60 (45-117) U/L Troponin I 0.035 (0-0.045) ng/ml NT-Pro-B Natriuret Pep 946 (0-1800) pg/ml Total Protein 7.1 (6.4-8.2) gm/dl Albumin 3.4 (3.4-5.0) gm/dl Lipase 298 (73-393) U/L Urine Color Urine Appearance (Clear) Urine pH (4.5-7.5) Ur Specific [place] (1.000-1.030) Urine Protein (Negative) Urine Glucose (UA) (Negative) Urine Ketones (Negative) Urine Blood (Negative) Urine Nitrite (Negative) Urine Bilirubin (Negative) Urine Urobilinogen (Negative) Ur Leukocyte Esterase (Negative) Urine WBC (Auto) (0-5) /hpf Urine RBC (Auto) (0-4) /hpf U Hyaline Cast (Auto) (0-5) /lpf U Epithel Cells (Auto) (0-5) /lpf Urine Bacteria (Auto) (Negative) 08/30/18 08/31/18 Range/Units 23:59 01:35 WBC (4.8-10.8) K/uL RBC (4.2-5.4) M/uL Hgb (12.0-16.0) g/dL Hct (37-47) % MCV (80-100) fL MCH (25-34) pg MCHC (32-36) g/dL RDW Std Deviation (36.4-46.3) fL RDW Coeff of Gabriel (11.5-14.5) % Plt Count (130-400) K/uL MPV (7.4-10.4) fL Immature Gran % (Auto) % Neut % (Auto) % Lymph % (Auto) % Kerr % (Auto) % Eos % (Auto) % Baso % (Auto) % Immature Gran # (Auto) (0.00-0.02) K/uL Neut # (Auto) (1.4-6.5) K/uL Lymph # (Auto) (1.2-3.4) K/uL Kerr # (Auto) (0.11-0.59) K/uL Eos # (Auto) (0-0.5) K/uL Baso # (Auto) (0-0.2) K/uL PT (9.0-12.0) Seconds INR (0.9-1.1) Sodium (136-145) mmol/L Potassium (3.5-5.1) mmol/L Chloride (98-107) mmol/L Carbon Dioxide (21-32) mmol/L Anion Gap (3-11) BUN (7-18) mg/dl Creatinine (0.6-1.2) mg/dl Est Cr Clr Drug Dosing ml/min Est GFR ( Amer) Est GFR (Non-Af Amer) BUN/Creatinine Ratio (10-20) Glucose (70-99) mg/dl Lactate 1.2 (0.4-2.0) mmol/L Calcium (8.5-10.1) mg/dl Magnesium (1.8-2.4) mg/dl Total Bilirubin (0.2-1) mg/dl Direct Bilirubin (0-0.2) mg/dl AST (15-37) U/L ALT (12-78) U/L Alkaline Phosphatase (45-117) U/L Troponin I (0-0.045) ng/ml NT-Pro-B Natriuret Pep (0-1800) pg/ml Total Protein (6.4-8.2) gm/dl Albumin (3.4-5.0) gm/dl Lipase (73-393) U/L Urine Color Yellow Urine Appearance Clear (Clear) Urine pH 7.0 (4.5-7.5) Ur Specific [place] 1.017 (1.000-1.030) Urine Protein Trace H (Negative) Urine Glucose (UA) Negative (Negative) Urine Ketones Negative (Negative) Urine Blood Negative (Negative) Urine Nitrite Negative (Negative) Urine Bilirubin Negative (Negative) Urine Urobilinogen Negative (Negative) Ur Leukocyte Esterase Negative (Negative) Urine WBC (Auto) 1-5 (0-5) /hpf Urine RBC (Auto) 0-4 (0-4) /hpf U Hyaline Cast (Auto) 0 (0-5) /lpf U Epithel Cells (Auto) 5-10 H (0-5) /lpf Urine Bacteria (Auto) Negative (Negative) Administered Medications Sodium Chloride (Nss 1000ml) 1,000 mls @ 80 mls/hr IV .[id number] NYDIA Stop: 09/30/18 02:29 Last Admin: 08/31/18 04:44 Dose: 80 mls/hr Documented by: [id number] Discontinued Medications Acetaminophen (Ofirmev) 1,000 mg in 100 mls @ 400 mls/hr IV NOW STA Stop: 08/30/18 23:44 Last Infusion: 08/31/18 00:27 Dose: 0 mls/hr Documented by: [id number] Admin: 08/31/18 00:08 Dose: 400 mls/hr Documented by: [id number] Sodium Chloride (Nss 1000ml) 500 mls @ 999 mls/hr IV .Q31M ONE Stop: 08/31/18 00:00 Last Infusion: 08/31/18 01:02 Dose: 0 mls/hr Documented by: [id number] Infusion: 08/31/18 00:24 Dose: 999 mls/hr Documented by: [id number] Admin: 08/31/18 00:08 Dose: 999 mls/hr Documented by: [id number] Ceftriaxone Sodium (Rocephin) 1,000 mg in 50 mls @ 100 mls/hr IV NOW STA Stop: 08/31/18 01:10 Last Infusion: 08/31/18 01:31 Dose: 0 mls/hr Documented by: [id number] Admin: 08/31/18 00:57 Dose: 100 mls/hr Documented by: [id number] Vancomycin HCl 1,500 mg/ (Sodium Chloride) 530 mls @ 200 mls/hr IV NOW ONE; P rotocol Stop: 08/31/18 03:19 Last Infusion: 08/31/18 04:47 Dose: 0 mls/hr Documented by: [id number] Admin: 08/31/18 02:03 Dose: 200 mls/hr Documented by: [id number] Promethazine HCl (Phenergan) 12.5 mg in 50.5 mls @ 202 mls/hr IV NOW STA Stop: 08/31/18 01:28 Last Infusion: 08/31/18 01:59 Dose: 0 mls/hr Documented by: [id number] Admin: 08/31/18 01:31 Dose: 202 mls/hr Documented by: [id number] Piperacillin Sod/Tazobactam Sod (Zosyn) 4.5 gm in 120 mls @ 240 mls/hr IV NOW ONE Stop: 08/31/18 02:49 Last Admin: 08/31/18 03:56 Dose: Not Given Documented by: [id number] Piperacillin Sod/Tazobactam (Sod 4.5 gm/ Dextrose) 120 mls @ 240 mls/hr IV NOW STA; Protocol Stop: 08/31/18 05:05 Last Admin: 08/31/18 05:10 Dose: 240 mls/hr Documented by: [id number] Ioversol (Optiray 320 100ml) 100 ml IV ONCE PRN PRN Reason: Interaction Checking Stop: 09/04/18 01:38 Last Admin: 08/31/18 01:39 Dose: 93 ml Documented by: [id number] Metoprolol Tartrate (Lopressor) 2.5 mg IV NOW STA Stop: 08/31/18 01:08 Last Admin: 08/31/18 01:31 Dose: 2.5 mg Documented by: [id number] Ondansetron HCl (Zofran) 4 mg IV NOW STA Stop: 08/30/18 23:31 Last Admin: 08/31/18 00:08 Dose: 4 mg Documented by: [id number] Imaging Data Attestation: I personally reviewed and interpreted this imaging study as follows: ECG Data Attestation: I personally reviewed and interpreted this ECG as follows: Blood Pressure Blood Pressure Findings: Elevated blood pressure Blood Pressure Disposition: further management by hospitalist Discharge Plan Visit Data *Final* Discharge Date/Time: 08/31/18 02:54 Chief Complaint: Illness ED Provider: Jayme Flores Discharge Problem: Fever, Tachycardia, Draining postoperative wound, Vomiting Patient Disposition: Admitted As Inpatient Discharge Instructions Interventions: ED Discharge Assessment Last Done: 08/31/18 02:54 Discharge Problem: Fever Qualifiers: Fever type: unspecified Qualified Code(s): R50.9 - Fever, unspecified Draining postoperative wound Qualifiers: Encounter type: initial encounter Qualified Code(s): T81.89XA - Other complications of procedures, not elsewhere classified, initial encounter Vomiting Qualifiers: Vomiting type: unspecified Vomiting Intractability: non-intractable Nausea presence: with nausea Qualified Code(s): R11.2 - Nausea with vomiting, unspecified The scribe's documentation has been prepared under my direction and personally reviewed by me in its entirety. I confirm that the note above accurately reflects all work, treatment, procedures, and medical decision making performed by me.
[2018-08-31 05:54] LABS: Basophils # (auto) 0.02 K/uL (0-0.2); Basophils % (auto) 0.1 %; Eosinophils # (auto) 0.02 K/uL (0-0.5); Eosinophils % (auto) 0.1 %; Hemoglobin 10.6 g/dL (12.0-16.0); Immature Granulocytes # (auto) 0.07 K/uL (0.00-0.02); Immature Granulocytes % (auto) 0.4 %; Lymphocytes # (auto) 0.43 K/uL (1.2-3.4); Lymphocytes % (auto) 2.4 %; Mean Corpuscular Hgb Conc 33.1 g/dL (32-36); Mean Corpuscular Volume 96.1 fL (80-100); Mean Platelet Volume 9.2 fL (7.4-10.4); Monocytes # (auto) 1.37 K/uL (0.11-0.59); Monocytes % (auto) 7.6 %; Neutrophils # (auto) 16.03 K/uL (1.4-6.5); Neutrophils % (auto) 89.4 %; Platelet Count 155 K/uL (130-400); RDW Coefficient of Variation 13.3 % (11.5-14.5); RDW Standard Deviation 46.4 fL (36.4-46.3); Red Blood Count 3.33 M/uL (4.2-5.4); White Blood Count 17.94 K/uL (4.8-10.8)
[2018-08-31] MEDS: LEVOTHYROXINE SODIUM 50 MCG TABLET PO SCH (06:07)
[2018-08-31] MEDS: INSULIN ASPART 100 UNITS/ML 3 ML PEN SC SCH ×3 (06:25→17:22)
[2018-08-31 06:26] LABS: BUN Creatinine Ratio 22.5 (10-20); Calcium 8.2 mg/dl (8.5-10.1); Creatinine Clr Calc Pharmacy 51.5 ml/min; Est GFR (African American) 72.4; Est GFR (Non-African American) 62.5; Magnesium 1.5 mg/dl (1.8-2.4); Potassium 3.6 mmol/L (3.5-5.1)
[2018-08-31] MEDS ORDERED: DOCUSATE SODIUM 100 MG CAP PO PRN (06:30)
--- NOTE | 2018-08-31 06:30 | CT Scan Report ---
CT head/brain wo con CLINICAL HISTORY: Headache COMPARISON STUDY: 07/30/2018 TECHNIQUE: Axial CT of the brain is performed from the vertex to the skull base. IV contrast was not administered for this examination. A dose lowering technique was utilized adhering to the principles of ALARA. CT DOSE: FINDINGS: No intra or extra-axial mass lesions are visualized. There is no CT evidence of acute cortical infarc tion. There is no evidence of midline shift. There is no acute hemorrhage. No calvarial fractures ar e visualized. There are mild white matter hypodensities likely on a small vessel basis. There is no evidence of pathologic ventricular dilatation. There is no evidence of acute sinusitis IMPRESSION: No acute intracranial findings Electronically signed by: Roshan Stoll M.D. 08/31/2018 6:29 AM
--- NOTE | 2018-08-31 07:09 | XRay Report ---
XR chest 1V portable CLINICAL HISTORY: fever, weakness COMPARISON STUDY: 08/19/2018 FINDINGS: The cardiac and mediastinal contours remain stable. There is a left subclavian dual-chamber central venous pacemaker present. From the appearance of the film, it appears the patient was leanin g forward. There is soft tissue prominence in the right hilar region. This could represent focal pulm onary consolidation. There are bilateral interstitial pulmonary opacities possibly representing chron ic interstitial lung disease. IMPRESSION: 1. Technically limited study 2. Low lung volumes with suspected underlying interstitial pulmonary fibrotic change 3. Soft tissue prominence at the right hilar region. An area of focal pulmonary consolidation cannot be excluded Electronically signed by: Roshan Stoll M.D. 08/31/2018 7:08 AM
--- NOTE | 2018-08-31 07:44 | CT Scan Report ---
CT SCAN OF THE CHEST WITH IV CONTRAST CLINICAL HISTORY: Chest wall swelling. Infection around the pacemaker. COMPARISON STUDY: Chest x-ray dated 08/30/2018. Chest CT scans dated 09/14/2016 and 11/17/2013. TECHNIQUE: Following the IV administration of 93 cc of Optiray 320, CT scan of the thorax was perform ed from the thoracic inlet to the upper abdomen. Images are reviewed in the axial, sagittal, and denton nal planes. IV contrast was administered without complication. A dose lowering technique was utilize d adhering to the principles of ALARA. CT DOSE: 1590.57 mGy.cm FINDINGS: Thyroid: Imaged portions of the thyroid gland are normal in size and attenuation. A subcentimeter low -attenuation nodule is noted in the right lobe. Thoracic aorta: There is mild atherosclerotic calcification of the thoracic aorta, which is normal in caliber and demonstrates standard 3-vessel arch anatomy. No dissection is seen. Pulmonary vasculature: The pulmonary trunk is normal in caliber. There are no filling defects identif ied in the central pulmonary vessels to indicate pulmonary embolus. Note that this examination was no t protocoled for evaluation of the pulmonary arteries. Heart: A 2-lead cardiac pacemaker is present in the left chest wall. The heart is enlarged and withou t pericardial effusion. The coronary arteries are densely calcified. Lungs and pleural spaces: There are trace pleural effusions. Mild diffuse intralobular septal thicken ing suggests a component of congestive failure. There is extensive subpleural reticulation seen throu ghout both lungs. There is mild traction bronchiectasis in the lower lobes with dependent consolidati on. No honeycombing is seen. The trachea and central airways are clear. Mild diffuse peribronchial th ickening is observed. Mediastinum: There are numerous subcentimeter mediastinal lymph nodes. Maria T: Mildly enlarged right hilar nodes measure up to 14 mm in short axis. Subcentimeter nodes are se en in the left hilum. Axillae: There is no axillary lymphadenopathy. Upper abdomen: There are numerous calcified gallstones. A tiny hiatal hernia is noted there is trace perisplenic ascites. A subcentimeter cyst is noted in the upper pole of the left kidney. Skeletal structures: The skeletal structures are osteopenic. Degenerative change is noted in the shou lders and thoracic spine. There is a superior endplate compression deformity of T9. No lytic or blast ic bony lesions are seen. Soft tissues: A pacemaker is present in the left upper chest wall. Streak artifact from the pacemaker degrades assessment of the sternum soft tissues. There is mild soft tissue stranding. No fluid colle ction is identified. IMPRESSION: 1. A 2-lead cardiac pacemaker is in place. Mild stranding within the soft tissues around the pacemake r in the left upper chest wall could represent postoperative change versus soft tissue infection. Cli nical correlation will be required. 2. No fluid collection is identified around the pacemaker to suggest abscess. 3. Cardiomegaly with evidence of congestive failure. 4. There are trace pleural effusions. 5. Changes of interstitial lung disease are similar to previous. 6. Dependent airspace opacities at both lung bases likely represents a combination of atelectasis and chronic lung disease. Correlate clinically for evidence of a superimposed infectious/inflammatory pn eumonitis. 7. Cholelithiasis. 8. Additional findings as above. Electronically signed by: Alejandro Tom M.D. 08/31/2018 7:43 AM
[2018-08-31] MEDS ORDERED: HYDROCORTISONE SOD 100 MG in SYRINGE 0 ML IV ONE (07:45)
[2018-08-31] MEDS: METOPROLOL SUCC 50MG EXT REL TAB PO SCH ×2 (08:22→20:15)
[2018-08-31] MEDS: PANTOprazole 40 MG TAB PO SCH (08:23)
[2018-08-31] MEDS: CEROVITE ADV FORMULA TAB PO SCH (08:23)
[2018-08-31] MEDS: ERYTHROMYCIN OP OINT 5 MG/GM 3.5 GM TUBE OP SCH ×4 (08:24→20:15)
[2018-08-31] MEDS: ROSUVASTATIN CALCIUM 10 MG TAB PO SCH (08:24)
[2018-08-31] MEDS: ACETAMINOPHEN 325 MG TAB PO PRN ×2 (08:26→20:14)
[2018-08-31] MEDS: PROMETHAZINE HCL 12.5 MG in SODIUM CHLORIDE 0.9% 50 ML IV PRN (08:35)
[2018-08-31] MEDS ORDERED: predniSONE 10 MG TABLET PO SCH (09:00)
[2018-08-31] MEDS ORDERED: CONSULT PHARMACY SCH (09:00)
[2018-08-31] MEDS ORDERED: METOPROLOL SUCC 50MG EXT REL TAB PO SCH (09:00)
[2018-08-31] MEDS ORDERED: ENOXAPARIN INJ 30 MG/0.3 ML SYR SQ SCH (09:00)
[2018-08-31] MEDS: AMLODIPINE BESYLATE 5 MG TAB PO SCH (10:00)
[2018-08-31] MEDS: PIPERACILLIN/TAZOBACTAM 3.375 GM in DEXTROSE 5% 100 ML IV SCH ×2 (10:08→19:45)
--- NOTE | 2018-08-31 10:31 | Cardiology Consultation ---
Date of Consultation August 31, 2018 Assessment & Plan (1) Sepsis: (2) Infection of pacemaker pocket: (3) Mobitz type 2 second degree atrioventricular block: 83-year-old female with a history of type 2 diabetes mellitus, and chronic outpatient oral prednisone therapy for her history of Sjogren's syndrome and autoimmune hepatitis presents with constitutional symptoms and fever 13 days post implantation of dual-chamber permanent pacemaker performed due to symptomatic second-degree AV block. The appearance of her incision and her fever is suggestive of pacemaker pocket infection. Blood cultures are currently pending. Empiric antibiotic therapy has been initiated. I discussed the case with Dr. Baird of , and we reviewed an photo of the incision which was taken and transferred via secure provider to provider [employer]. We will plan on proceeding with a transesophageal echocardiogram this morning to exclude extension of the infection to the leads and valves. We will tentatively plan for temporary transvenous pacemaker placement for heart rate support to allow extraction of the device tomorrow 09/01/2018. The patient will need to be supported with IV antibiotics for several days with temporary transvenous pacemaker support until he repeat permanent pacemaker can be imp lanted after the infection is felt to be cleared. Patient was agreeable to the plan. I discussed the case with Dr. Griffin of [place] who is going to assist with antibiotic recommendations. I updated her daughter, Norah by telephone and left a voicemail message for her daughter Rola. History of Present Illness Attending Physician: Carl Marquez MD History of Present Illness María Kunz is an 83 year old female seen in cardiology consultation per the request of Dr Miguel due to concerns of pacemaker pocket infection. The patient's primary starch cooker is Dr. Lee of our practice. Patient was admitted on 08/18/2018 with findings of 2-1 AV block with ventricular rate of 46 bpm. She therefore underwent implantation of a dual-chamber [employer] permanent pacemaker later that day on 08/18/[address] Baird. The patient most recently been seen in the heart rhythm device clinic at [facility] on 08/27/2018. The device function was found to be normal at that time. The underlying rhythm was felt to be Mobitz type II second-degree AV block. A small area of drainage was noted on the medial aspect of the incision at that time. 2 days ago the patient felt progressively ill with nauseousness, emesis and subjective fever at home as well as headache. She presented to the emergency room overnight last night and was found to have significant erythema and yellow drainage over her left infraclavicular pacemaker pocket incision. Her initial temperature is performed on 08/30/2018 at 22: 59 hours in the emergency room was 38.1 C with a T-max of 39.1 C overnight. Past Medical History: 1. Recent diagnosis of 2-1 AV block 2. Autoimmune hepatitis, treated with steroids 3. History of Sjogren's syndrome with keratoconjunctivitis sicca 4. Interstitial lung disease, with resultant pulmonary hypertension, most recent estimated pulmonary systolic pressure in the mid 50 mmHg range on echocardiogram performed at [facility] April, 6. History of left eye central retinal vein occlusion 7. Type 2 diabetes mellitus 8. Dyslipidemia Allergies Allergy/AdvReac Type Severity Reaction Status Date / Time Bactrim Allergy Severe edema Unverified 05/23/17 00:18 face/lips/tongue sulfamethoxazole Allergy Severe edema Unverified 08/30/18 23:11 face/lips/tongue trimethoprim Allergy Severe edema Unverified 08/30/18 23:11 face/lips/tongue latex Allergy Mild LOCAL SKIN Unverified 08/30/18 23:11 REACTION niacin Allergy Mild RASH Unverified 08/30/18 23:11 Cipro AdvReac Intermediate GI SYMPTOMS Verified 05/23/17 00:18 ciprofloxacin AdvReac Intermediate GI SYMPTOMS Verified 08/30/18 23:11 metronidazole AdvReac Intermediate GI SYMPTOMS Verified 08/30/18 23:11 naproxen AdvReac Intermediate BURNING Unverified 08/30/18 23:11 STOMACH Home Medications Home Medications Medication Instructions Recorded Confirmed Type Artificial Tears (PF) 1 drp OPHTHALMIC (EYE) HS 07/30/18 08/30/18 History Dulera 2 puff INHALATION Q12H 07/30/18 08/30/18 History albuterol sulfate 2 puff INHALATION Q6H PRN 07/30/18 08/30/18 History amlodipine 5 mg PO DAILY 07/30/18 08/30/18 History levothyroxine 50 mcg PO DAILY 07/30/18 08/30/18 History metformin 500 mg PO BID 07/30/18 08/30/18 History omeprazole 20 mg PO DAILY 07/30/18 08/30/18 History rosuvastatin [Crestor] 10 mg PO DAILY 07/30/18 08/30/18 History triamcinolone acetonide 1 applic TOPICAL BID 07/30/18 08/30/18 History Ocuvite Eye Plus Multi 2 tab PO DAILY 08/18/18 08/30/18 History Probiotic 3,000 mmu cells PO DAILY 08/18/18 08/30/18 History acetaminophen [Acetaminophen Extra 1,000 mg PO BID PRN 08/18/18 08/30/18 History Strength] calcium polycarbophil [Fiber 1,250 mg PO DAILY 08/18/18 08/30/18 History (calcium polycarbophil)] docusate sodium 100 mg PO BID PRN 08/18/18 08/30/18 History erythromycin 1 applic OPHTHALMIC (EYE) QID 08/18/18 08/30/18 History ipratropium bromide 0.5 mg INHALATION Q4H PRN 08/18/18 08/30/18 History metoprolol succinate 50 mg PO BID 08/18/18 08/30/18 History prednisone 10 mg PO DAILY 08/18/18 08/30/18 History Patient History Medical History Sjogren's syndrome with lung involvement (Chronic) Retinal vein occlusion (Chronic) Pulmonary hypertension (Chronic) GERD (gastroesophageal reflux disease) (Chronic) Dyslipidemia (Chronic) CKD (chronic kidney disease), stage III (Chronic) Hypertension (Chronic) Osteoporosis (Chronic) Central retinal vein occlusion of left eye (Chronic) Diverticulosis of colon (Chronic) GERD (gastroesophageal reflux disease) (Inactive) Surgical History Status post tubal ligation (Chronic) Status post appendectomy (Chronic) History of appendectomy (Resolved) Family History Other Heart disease Social History Preferred Language: Icelandic Communication Ability: Effective 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 current occupational status: retired Other Information That Helps Us Care for You: No Feels Safe at Home: Yes Safety Concerns: Feels Safe At This Time Smoking Status: Never smoker Hx Alcohol Use: Yes Alcohol type: beer Hx Substance Use: No Review of Systems Review of Systems: All systems reviewed & are unremarkable except as noted in HPI & below Physical Exam Physical Exam: Temp Pulse Resp BP Pulse Ox 37.9 C H 101 H 16 104/56 L 97 08/31/18 07:03 08/31/18 07:03 08/31/18 07:03 08/31/18 07:03 08/31/18 07:03 Constitutional: + ill appearing Respiratory: normal respiratory effort, lungs clear to auscultation Cardiovascular: RRR, no murmur, no edema Heart Sounds: + murmur (I/ systolic murmur); no gallop and no cardiac rub Vessels: no JVD Extremities: no edema Chest (Breasts): Chest: + pacemaker (Left infraclavicular pacemaker pocket with yellow thick drainage over length of incision, mild surrounding erythema, no active fluid collection detected by palpation surrounding the incision/pacemaker generator) Gastrointestinal (Abdomen): normal bowel sounds, soft, nontender, no hepatosplenomegaly Neurologic: PERRL, EOMI, accommodation nl, no face palsy, no dysarthria Results & Data Vital Signs (Past 12 Hours) Vital Signs Temp Pulse Pulse Resp BP BP Pulse Ox 08/31/18 07:03 37.9 C H 101 H 16 104/56 L 97 08/31/18 05:47 37.6 C H 08/31/18 04:21 39.1 C H 08/31/18 03:52 110 H 08/31/18 03:02 38.4 C H 110 H 22 125/74 99 08/31/18 02:30 109 H 30 H 127/65 08/31/18 02:00 106 H 28 H 121/62 96 08/31/18 01:36 110 H 32 H 130/78 95 08/31/18 01:00 114 H 24 98 08/31/18 00:41 38.1 C H 08/31/18 00:30 90 34 H 97 08/31/18 00:00 101 H 33 H 98 08/30/18 23:30 122 H 32 H 98 08/30/18 23:00 107 H 24 100 08/30/18 22:59 38.1 C H 107 H 20 165/119 H 96 08/30/18 22:58 108 H 20 98 08/30/18 22:55 105 H 29 H 165/119 H 99 Laboratory Results Cardiac Enzymes 08/30/18 Range/Units 23:59 AST 21 (15-37) U/L Troponin I 0.035 (0-0.045) ng/ml Coagulation 08/30/18 Range/Units 23:59 PT 10.4 (9.0-12.0) Seconds CBC 08/30/18 08/31/18 Range/Units 23:59 05:40 WBC 10.93 H 17.94 H (4.8-10.8) K/uL RBC 3.71 L 3.33 L (4.2-5.4) M/uL Hgb 12.2 10.6 L (12.0-16.0) g/dL Hct 36.0 L 32.0 L (37-47) % Plt Count 191 155 (130-400) K/uL Neut # (Auto) 9.82 H 16.03 H (1.4-6.5) K/uL Lymph # (Auto) 0.68 L 0.43 L (1.2-3.4) K/uL [place] # (Auto) 0.37 1.37 H (0.11-0.59) K/uL Eos # (Auto) 0.02 0.02 (0-0.5) K/uL Baso # (Auto) 0.01 0.02 (0-0.2) K/uL Comprehensive Metabolic Panel 08/30/18 08/31/18 Range/Units 23:59 05:40 Sodium 133 L 131 L (136-145) mmol/L Potassium 4.0 3.6 (3.5-5.1) mmol/L Chloride 95 L 94 L (98-107) mmol/L Carbon Dioxide 32 30 (21-32) mmol/L BUN 21 H 19 H (7-18) mg/dl Creatinine 0.79 0.87 (0.6-1.2) mg/dl Glucose 160 H 153 H (70-99) mg/dl Calcium 8.5 8.2 L (8.5-10.1) mg/dl Direct Bilirubin < 0.1 (0-0.2) mg/dl AST 21 (15-37) U/L ALT 23 (12-78) U/L Alkaline Phosphatase 60 (45-117) U/L Total Protein 7.1 (6.4-8.2) gm/dl Albumin 3.4 (3.4-5.0) gm/dl Intake and Output 08/30/18 08/31/18 08/31/18 22:59 06:59 14:59 Intake Total 1450.5 / 1450.5 50.5 / 50.5 Balance 1450.5 / 1450.5 50.5 / 50.5 Intake: IV 1450.5 / 1450.5 50.5 / 50.5 OFIRMEV 1,000 mg In 100 ml @ 100 / 100 400 mls/hr IV NOW STA Rx#: [id number] MAGNESIUM SULFATE / D5W 1 gm In 100 / 100 100 ml @ 100 mls/hr IV ONE ONE Rx#:[id number] Zosyn 4.5 gm In D5 100 ml @ 240 120 / 120 mls/hr IV NOW STA Rx#:[id number] PHENERGAN 12.5 mg In 50.5 ml @ 50.5 / 50.5 202 mls/hr IV NOW STA Rx#: [id number] Phenergan 12.5 mg In Nss 50 ml 50.5 / 50.5 @ 202 mls/hr IV Q6H PRN Rx#: [id number] Nss 1000ML 500 ml @ 999 mls/hr 500.0 / 500.0 IV .Q31M ONE Rx#:[id number] Vancomycin HCl 1,500 mg In Nss 530 / 530 500 ml @ 200 mls/hr IV NOW ONE Rx#:[id number] ROCEPHIN 1,000 mg In 50 ml @ 50 / 50 100 mls/hr IV NOW STA Rx#: [id number] Other: Other Intake Source sips Weight 72.1 kg 64.3 kg Diagnostic Findings EKG performed 08/31/2018 at 12:22 AM revealed sinus rhythm with demand ventricular pacing. Medications Administered Current Inpatient Medications Acetaminophen (Tylenol) 650 mg PO Q4H PRN PRN Reason: Pain or Fever Stop: 09/30/18 03:45 Last Admin: 08/31/18 08:26 Dose: 650 mg Documented by: Amlodipine Besylate (Norvasc) 5 mg PO DAILY [facility] Stop: 09/30/18 08:59 Last Admin: 08/31/18 10:00 Dose: 5 mg Documented by: Artificial Tears (Artificial Tears) 1 drops OP HS [facility] Stop: 09/30/18 20:59 Dextrose (Dextrose 50%) 25 - 50 ml IV UD PRN; Protocol PRN Reason: Hypoglycemia Protocol Stop: 09/30/18 03:45 Docusate Sodium (Colace) 100 mg PO BID PRN PRN Reason: CONSTIPATION Stop: 09/30/18 06:29 Enoxaparin Sodium (Lovenox) 30 mg SQ QAM [facility] Stop: 09/30/18 08:59 Last Admin: 08/31/18 08:25 Dose: 30 mg Documented by: Erythromycin (Erythromycin) 1 appln OP QID [facility] Stop: 09/10/18 08:59 Last Admin: 08/31/18 08:24 Dose: 1 appln Documented by: Glucagon (Glucagen) 1 mg SQ UD PRN; Protocol PRN Reason: Hypoglycemia Protocol Stop: 09/30/18 03:45 Glucose (Glucose 40%) 15 - 30 gm PO UD PRN; Protocol PRN Reason: Hypoglycemia Protocol Stop: 09/30/18 03:45 Glucose (Dex4 Glucose) 4 - 8 tabs PO UD PRN; Protocol PRN Reason: Hypoglycemia Protocol Stop: 09/30/18 03:45 Hydromorphone HCl (Dilaudid) 0.25 mg IV Q3H PRN PRN Reason: Pain Stop: 09/14/18 03:45 Promethazine HCl 12.5 mg/ (Sodium Chloride) 50.5 mls @ 202 mls/hr IV Q6H PRN PRN Reason: Nausea And Vomiting Stop: 09/30/18 00:49 Last Infusion: 08/31/18 08:50 Dose: Infused Documented by: Sodium Chloride (Nss 1000ml) 1,000 mls @ 80 mls/hr IV .[id number] [facility] Stop: 09/30/18 02:29 Last Admin: 08/31/18 04:44 Dose: 80 mls/hr Documented by: Piperacillin Sod/Tazobactam (Sod 3.375 gm/ Dextrose) 115 mls @ 28.75 mls/hr IV Q8H [facility]; Protocol Stop: 09/10/18 09:59 Last Admin: 08/31/18 10:08 Dose: 28.8 mls/hr Documented by: Hydrocortisone Sodium (Succinate 50 mg/ Syringe) 1 mls @ 4 mls/min IV Q8H [facility] Stop: 09/30/18 15:59 Magnesium Sulfate/Dextrose (Magnesium Sulfate / D5w) 1 gm in 100 mls @ 100 mls/hr IV ONE ONE Stop: 08/31/18 11:44 Insulin Aspart (Novolog Flexpen) 0 units SC Q6 [facility] Stop: 09/30/18 05:59 Last Admin: 08/31/18 06:25 Dose: Not Given Documented by: Levothyroxine Sodium (Synthroid) 50 mcg PO DAILYBB [facility] Stop: 09/30/18 06:29 Last Admin: 08/31/18 06:07 Dose: 50 mcg Documented by: Metoprolol Succinate (Toprol Xl) 50 mg PO BID [facility] Stop: 09/30/18 06:29 Last Admin: 08/31/18 08:22 Dose: 50 mg Documented by: Miscellaneous (Order Awaiting Action) 1 ea N/A QS [facility] Stop: 09/30/18 07:59 Last Admin: 08/31/18 08:58 Dose: Not Given Documented by: Miscellaneous (Carbohydrates For Hypoglycemia) 15 - 30 gm PO UD PRN PRN Reason: Hypoglycemia Treatment Stop: 09/30/18 03:45 Miscellaneous Information (Consult) 1 ea N/A UD PRN PRN Reason: Consult Stop: 09/30/18 00:40 Miscellaneous Information (Consult) 1 ea N/A UD PRN PRN Reason: Consult Stop: 09/30/18 04:22 Multivitamins/Minerals (Multivitamin W/ Minerals Tab) 1 tab PO DAILY [facility]; Protocol Stop: 09/30/18 08:59 Last Admin: 08/31/18 08:23 Dose: 1 tab Documented by: Pantoprazole Sodium (Protonix) 40 mg PO DAILY [facility]; Protocol Stop: 09/30/18 08:59 Last Admin: 08/31/18 08:23 Dose: 40 mg Documented by: Rosuvastatin Calcium (Crestor) 10 mg PO DAILY [facility] Stop: 09/30/18 08:59 Last Admin: 08/31/18 08:24 Dose: 10 mg Documented by: Tramadol HCl (Ultram) 25 mg PO Q4H PRN PRN Reason: Pain Stop: 09/30/18 03:45
[2018-08-31] MEDS ORDERED: MAG SULFATE 50% 1GM/2ML VIAL IV ONE (10:41)
--- NOTE | 2018-08-31 10:57 | Anesthesiology Consultation ---
Date of Service August 31, 2018 Assessment & Plan (1) Encounter for pre-operative examination: Chart Review Chart Review: Acceptable Risk for Surgery and Patient NOT seen in Pre Admission Testing Consults Requested cardiac patient followed by cardiology History Surgery Operation Date: 08/31/18 10:50 Proposed Procedures p Transesophageal Echo w/Anesthesia - Aries Walker DO Height/Weight Height: 5 ft 10 in Weight: 64.3 kg Allergies Allergy/AdvReac Type Severity Reaction Status Date / Time Bactrim Allergy Severe edema Unverified 05/23/17 00:18 face/lips/tongue sulfamethoxazole Allergy Severe edema Unverified 08/30/18 23:11 face/lips/tongue trimethoprim Allergy Severe edema Unverified 08/30/18 23:11 face/lips/tongue latex Allergy Mild LOCAL SKIN Unverified 08/30/18 23:11 REACTION niacin Allergy Mild RASH Unverified 08/30/18 23:11 Cipro AdvReac Intermediate GI SYMPTOMS Verified 05/23/17 00:18 ciprofloxacin AdvReac Intermediate GI SYMPTOMS Verified 08/30/18 23:11 metronidazole AdvReac Intermediate GI SYMPTOMS Verified 08/30/18 23:11 naproxen AdvReac Intermediate BURNING Unverified 08/30/18 23:11 STOMACH Medications Home Medications Medication Instructions Recorded Confirmed Last Taken Artificial Tears (PF) 1 drp OPHTHALMIC (EYE) HS 07/30/18 08/30/18 Unknown Dulera 2 puff INHALATION Q12H 07/30/18 08/30/18 08/18/18 1 puff albuterol sulfate 2 puff INHALATION Q6H PRN 07/30/18 08/30/18 Unknown amlodipine 5 mg PO DAILY 07/30/18 08/30/18 08/17/18 levothyroxine 50 mcg PO DAILY 07/30/18 08/30/18 08/18/18 metformin 500 mg PO BID 07/30/18 08/30/18 08/18/18 omeprazole 20 mg PO DAILY 07/30/18 08/30/18 08/17/18 rosuvastatin [Crestor] 10 mg PO DAILY 07/30/18 08/30/18 08/18/18 triamcinolone acetonide 1 applic TOPICAL BID 07/30/18 08/30/18 Unknown Ocuvite Eye Plus Multi 2 tab PO DAILY 08/18/18 08/30/18 08/18/18 Probiotic 3,000 mmu cells PO DAILY 08/18/18 08/30/18 08/17/18 acetaminophen [Acetaminophen Extra 1,000 mg PO BID PRN 08/18/18 08/30/18 Unknown Strength] calcium polycarbophil [Fiber 1,250 mg PO DAILY 08/18/18 08/30/18 08/18/18 (calcium polycarbophil)] docusate sodium 100 mg PO BID PRN 08/18/18 08/30/18 Unknown erythromycin 1 applic OPHTHALMIC (EYE) QID 08/18/18 08/30/18 08/18/18 ipratropium bromide 0.5 mg INHALATION Q4H PRN 08/18/18 08/30/18 Unknown metoprolol succinate 50 mg PO BID 08/18/18 08/30/18 08/17/18 prednisone 10 mg PO DAILY 08/18/18 08/30/18 08/18/18 Active Medications Generic Name Dose Route Start Last Admin Trade Name Freq PRN Reason Stop Dose Admin Acetaminophen 650 mg 08/31/18 03:46 08/31/18 08:26 Tylenol PO 09/30/18 03:45 650 mg Q4H PRN Administration Pain or Fever Amlodipine Besylate 5 mg 08/31/18 09:00 08/31/18 10:00 Norvasc PO 09/30/18 08:59 5 mg DAILY [facility] Administration Enoxaparin Sodium 30 mg 08/31/18 09:00 08/31/18 08:25 Lovenox SQ 09/30/18 08:59 30 mg QAM [facility] Administration Erythromycin 1 appln 08/31/18 09:00 08/31/18 08:24 Erythromycin OP 09/10/18 08:59 1 appln QID [facility] Administration Promethazine HCl 12.5 mg/ 50.5 mls @ 202 mls/hr 08/31/18 00:50 08/31/18 08:50 Sodium Chloride IV 09/30/18 00:49 Infused Q6H PRN Infusion Nausea And Vomiting Sodium Chloride 1,000 mls @ 80 mls/hr 08/31/18 02:30 08/31/18 04:44 Nss 1000ml IV 09/30/18 02:29 80 mls/hr .[id number] [facility] Administration Piperacillin Sod/Tazobactam 115 mls @ 28.75 mls/hr 08/31/18 10:00 08/31/18 10:08 Sod 3.375 gm/ Dextrose IV 09/10/18 09:59 28.8 mls/hr Q8H [facility] Administration Protocol Magnesium Sulfate/Dextrose 1 gm in 100 mls @ 100 mls/hr 08/31/18 10:45 08/31/18 10:48 Magnesium Sulfate / D5w IV 08/31/18 11:44 Not Given ONE ONE Insulin Aspart 0 units 08/31/18 06:00 08/31/18 06:25 Novolog Flexpen SC 09/30/18 05:59 Not Given Q6 [facility] Levothyroxine Sodium 50 mcg 08/31/18 06:30 08/31/18 06:07 Synthroid PO 09/30/18 06:29 50 mcg DAILYBB [facility] Administration Metoprolol Succinate 50 mg 08/31/18 06:30 08/31/18 08:22 Toprol Xl PO 09/30/18 06:29 50 mg BID [facility] Administration Miscellaneous 1 ea 08/31/18 08:00 08/31/18 08:58 Order Awaiting Action N/A 09/30/18 07:59 Not Given QS [facility] Multivitamins/Minerals 1 tab 08/31/18 09:00 08/31/18 08:23 Multivitamin W/ Minerals Tab PO 09/30/18 08:59 1 tab DAILY [facility] Administration Protocol Pantoprazole Sodium 40 mg 08/31/18 09:00 08/31/18 08:23 Protonix PO 09/30/18 08:59 40 mg DAILY [facility] Administration Protocol Rosuvastatin Calcium 10 mg 08/31/18 09:00 08/31/18 08:24 Crestor PO 09/30/18 08:59 10 mg DAILY [facility] Administration Past Medical History Medical History Sjogren's syndrome with lung involvement (Chronic) Retinal vein occlusion (Chronic) Pulmonary hypertension (Chronic) GERD (gastroesophageal reflux disease) (Chronic) Dyslipidemia (Chronic) CKD (chronic kidney disease), stage III (Chronic) Hypertension (Chronic) Osteoporosis (Chronic) Central retinal vein occlusion of left eye (Chronic) Diverticulosis of colon (Chronic) History of pacemaker Tachy-cierra syndrome GERD (gastroesophageal reflux disease) (Inactive) Past Family History Family History Other Heart disease Past Surgical History Surgical History Status post tubal ligation (Chronic) Status post appendectomy (Chronic) History of appendectomy (Resolved) Social History Smoking Status: Never smoker Hx Alcohol Use: Yes Alcohol type: beer alcohol intake frequency: holidays/special occasions only Hx Substance Use: No Physical Exam Vital Signs Last Vital Signs Temp 37.9 C H 08/31/18 07:03 Pulse 101 H 08/31/18 07:03 Resp 16 08/31/18 07:03 BP 104/56 L 08/31/18 07:03 Pulse Ox 97 08/31/18 07:03 Testing Laboratory Results 08/31/18 05:40 08/31/18 05:40 PT 10.4 Seconds (9.0-12.0) 08/30/18 23:59 INR 1.0 (0.9-1.1) 08/30/18 23:59 Urine Color Yellow 08/31/18 01:35 Urine Appearance Clear (Clear) 08/31/18 01:35 Urine pH 7.0 (4.5-7.5) 08/31/18 01:35 Ur Specific [place] 1.017 (1.000-1.030) 08/31/18 01:35 Urine Protein Trace (Negative) H 08/31/18 01:35 Urine Glucose (UA) Negative (Negative) 08/31/18 01:35 Urine Ketones Negative (Negative) 08/31/18 01:35 Urine Nitrite Negative (Negative) 08/31/18 01:35 Ur Leukocyte Esterase Negative (Negative) 08/31/18 01:35 Urine WBC (Auto) 1-5 /hpf (0-5) 08/31/18 01:35 Urine RBC (Auto) 0-4 /hpf (0-4) 08/31/18 01:35 U Hyaline Cast (Auto) 0 /lpf (0-5) 08/31/18 01:35 U Epithel Cells (Auto) 5-10 /lpf (0-5) H 08/31/18 01:35 Urine Bacteria (Auto) Negative (Negative) 08/31/18 01:35 08/31/18 Unknown Gram Stain - Final Chest 08/31/18 08/31/18 06:04 03:17 POC Glucose 169 H 158 H
--- NOTE | 2018-08-31 11:13 | Infectious Disease Consult ---
Date of Consultation August 31, 2018 Assessment & Plan (1) Infection of pacemaker pocket: 83-year-old female with what appears to be infected pacemaker pocket, agree with need for pacemaker removal. Gram stain suggestive of staph infection, would continue on vancomycin pending final culture results and sensitivities. Case discussed with Dr. Walker. Will follow. History of Present Illness Reason for Consultation: Pacemaker pocket infection Attending Physician: Carl Marquez MD History of Present Illness 83-year-old female with history of pulmonary hypertension, dyslipidemia, stage III chronic kidney disease, hospitalized recently with heart block requiring permanent pacemaker implantation. He subsequently did well, but over the last several days noted fever, chills, nausea and vomiting, with drainage from her pacemaker site. He saw cardiology who diagnosed probable pocket infection and patient was admitted for further management. She has been given a dose of vancomycin and ceftriaxone and started on Zosyn. Blood cultures are pending. Culture of the drainage is also pending, Gram stain shows gram-positive cocci. Awaiting ORAL for evaluation for possible vegetations. Allergies Allergy/AdvReac Type Severity Reaction Status Date / Time Bactrim Allergy Severe edema Unverified 05/23/17 00:18 face/lips/tongue sulfamethoxazole Allergy Severe edema Unverified 08/30/18 23:11 face/lips/tongue trimethoprim Allergy Severe edema Unverified 08/30/18 23:11 face/lips/tongue latex Allergy Mild LOCAL SKIN Unverified 08/30/18 23:11 REACTION niacin Allergy Mild RASH Unverified 08/30/18 23:11 Cipro AdvReac Intermediate GI SYMPTOMS Verified 05/23/17 00:18 ciprofloxacin AdvReac Intermediate GI SYMPTOMS Verified 08/30/18 23:11 metronidazole AdvReac Intermediate GI SYMPTOMS Verified 08/30/18 23:11 naproxen AdvReac Intermediate BURNING Unverified 08/30/18 23:11 STOMACH Home Medications Home Medications Medication Instructions Recorded Confirmed Type Artificial Tears (PF) 1 drp OPHTHALMIC (EYE) HS 07/30/18 08/30/18 History Dulera 2 puff INHALATION Q12H 07/30/18 08/30/18 History albuterol sulfate 2 puff INHALATION Q6H PRN 07/30/18 08/30/18 History amlodipine 5 mg PO DAILY 07/30/18 08/30/18 History levothyroxine 50 mcg PO DAILY 07/30/18 08/30/18 History metformin 500 mg PO BID 07/30/18 08/30/18 History omeprazole 20 mg PO DAILY 07/30/18 08/30/18 History rosuvastatin [Crestor] 10 mg PO DAILY 07/30/18 08/30/18 History triamcinolone acetonide 1 applic TOPICAL BID 07/30/18 08/30/18 History Ocuvite Eye Plus Multi 2 tab PO DAILY 08/18/18 08/30/18 History Probiotic 3,000 mmu cells PO DAILY 08/18/18 08/30/18 History acetaminophen [Acetaminophen Extra 1,000 mg PO BID PRN 08/18/18 08/30/18 History Strength] calcium polycarbophil [Fiber 1,250 mg PO DAILY 08/18/18 08/30/18 History (calcium polycarbophil)] docusate sodium 100 mg PO BID PRN 08/18/18 08/30/18 History erythromycin 1 applic OPHTHALMIC (EYE) QID 08/18/18 08/30/18 History ipratropium bromide 0.5 mg INHALATION Q4H PRN 08/18/18 08/30/18 History metoprolol succinate 50 mg PO BID 08/18/18 08/30/18 History prednisone 10 mg PO DAILY 08/18/18 08/30/18 History Patient History Medical History Sjogren's syndrome with lung involvement (Chronic) Retinal vein occlusion (Chronic) Pulmonary hypertension (Chronic) GERD (gastroesophageal reflux disease) (Chronic) Dyslipidemia (Chronic) CKD (chronic kidney disease), stage III (Chronic) Hypertension (Chronic) Osteoporosis (Chronic) Central retinal vein occlusion of left eye (Chronic) Diverticulosis of colon (Chronic) History of pacemaker Tachy-cierra syndrome GERD (gastroesophageal reflux disease) (Inactive) Surgical History Status post tubal ligation (Chronic) Status post appendectomy (Chronic) History of appendectomy (Resolved) Family History Other Heart disease Social History Preferred Language: Amharic Communication Ability: Effective Manager Oracle Database Required: No Beliefs That Will Affect Care: None marital status: / Current Living Situation: Family Current Living Situation Comment: Patient's son, Lorenzo, lives with her. current occupational status: retired Other Information That Helps Us Care for You: No Feels Safe at Home: Yes Safety Concerns: Feels Safe At This Time Smoking Status: Never smoker Hx Alcohol Use: Yes Alcohol type: beer Hx Substance Use: No Review of Systems Review of Systems: All systems reviewed & are unremarkable except as noted in HPI & below Physical Exam Constitutional: WD/WN, vitals as above comfortable; no acute distress Eyes: PERRL, conjunctivae normal, anicteric sclerae ENMT: external ear and nose normal, oropharynx normal Neck: trachea midline, no thyromegaly neck nontender Respiratory: normal respiratory effort, lungs clear to auscultation normal percussion; does not use accessory muscles Cardiovascular: Rate/Rhythm: regular rate and regular rhythm Heart Sounds: normal S1, normal S2 and + murmur (Systolic); no gallop and no cardiac rub Vessels: normal peripheral pulses; no JVD Gastrointestinal (Abdomen): normal bowel sounds, soft, nontender, no hepatosplenomegaly Musculoskeletal: no cyanosis or clubbing, extremities motor strength 5/5 Spine: thoracic spine normal to inspection and lumbar spine normal to inspection; no cervical spinal tenderness Skin: normal turgor and + wound (Pacemaker pocket with purulence and surrounding erythema); no rashes Neurologic: patellar DTR's 2+ bilat, sensation intact no focal motor deficits Psychiatric: A+Ox3, euthymic affect Orientation: cooperative Lymphatic: no cervical or axillary lymphadenopathy no inguinal lymphadenopathy Results & Data Vital Signs (Past 12 Hours) Vital Signs Temp Pulse Pulse Resp BP BP Pulse Ox 08/31/18 07:03 37.9 C H 101 H 16 104/56 L 97 08/31/18 05:47 37.6 C H 08/31/18 04:21 39.1 C H 08/31/18 03:52 110 H 08/31/18 03:02 38.4 C H 110 H 22 125/74 99 08/31/18 02:30 109 H 30 H 127/65 08/31/18 02:00 106 H 28 H 121/62 96 08/31/18 01:36 110 H 32 H 130/78 95 08/31/18 01:00 114 H 24 98 08/31/18 00:41 38.1 C H 08/31/18 00:30 90 34 H 97 08/31/18 00:00 101 H 33 H 98 08/30/18 23:30 122 H 32 H 98 Laboratory Results Short CBC 08/30/18 08/31/18 Range/Units 23:59 05:40 WBC 10.93 H 17.94 H (4.8-10.8) K/uL Hgb 12.2 10.6 L (12.0-16.0) g/dL Hct 36.0 L 32.0 L (37-47) % Plt Count 191 155 (130-400) K/uL BMP 08/30/18 08/31/18 23:59 05:40 Sodium 133 L 131 L Potassium 4.0 3.6 Chloride 95 L 94 L Carbon Dioxide 32 30 BUN 21 H 19 H Creatinine 0.79 0.87 Glucose 160 H 153 H Calcium 8.5 8.2 L Cardiac Enzymes 08/30/18 Range/Units 23:59 Troponin I 0.035 (0-0.045) ng/ml Liver Function 08/30/18 Range/Units 23:59 Total Bilirubin 0.4 (0.2-1) mg/dl Direct Bilirubin < 0.1 (0-0.2) mg/dl AST 21 (15-37) U/L ALT 23 (12-78) U/L Alkaline Phosphatase 60 (45-117) U/L Albumin 3.4 (3.4-5.0) gm/dl Urine 08/31/18 Range/Units 01:35 Urine Color Yellow Urine Appearance Clear (Clear) Urine pH 7.0 (4.5-7.5) Ur Specific [place] 1.017 (1.000-1.030) Urine Protein Trace H (Negative) Urine Glucose (UA) Negative (Negative) Diagnostic Findings Microbiology 08/31/18 Unknown Chest Gram Stain - Final cc: ~ CT SCAN OF THE CHEST WITH IV CONTRAST CLINICAL HISTORY: Chest wall swelling. Infection around the pacemaker. COMPARISON STUDY: Chest x-ray dated 08/30/2018. Chest CT scans dated 09/14/2016 and 11/17/2013. TECHNIQUE: Following the IV administration of 93 cc of Optiray 320, CT scan of the thorax was performed from the thoracic inlet to the upper abdomen. Images are reviewed in the axial, sagittal, and coronal planes. IV contrast was administered without complication. A dose lowering technique was utilized adhering to the principles of ALARA. CT DOSE: 1590.57 mGy.cm FINDINGS: Thyroid: Imaged portions of the thyroid gland are normal in size and attenuation. A subcentimeter low-attenuation nodule is noted in the right lobe. Thoracic aorta: There is mild atherosclerotic calcification of the thoracic aor ta, which is normal in caliber and demonstrates standard 3-vessel arch anatomy. No dissection is seen. Pulmonary vasculature: The pulmonary trunk is normal in caliber. There are no filling defects identified in the central pulmonary vessels to indicate pulmonary embolus. Note that this examination was not protocoled for evaluation of the pulmonary arteries. Heart: A 2-lead cardiac pacemaker is present in the left chest wall. The heart is enlarged and without pericardial effusion. The coronary arteries are densely calcified. Lungs and pleural spaces: There are trace pleural effusions. Mild diffuse intralobular septal thickening suggests a component of congestive failure. There is extensive subpleural reticulation seen throughout both lungs. There is mild traction bronchiectasis in the lower lobes with dependent consolidation. No honeycombing is seen. The trachea and central airways are clear. Mild diffuse peribronchial thickening is observed. Mediastinum: There are numerous subcentimeter mediastinal lymph nodes. Maria T: Mildly enlarged right hilar nodes measure up to 14 mm in short axis. Subcentimeter nodes are seen in the left hilum. Axillae: There is no axillary lymphadenopathy. Upper abdomen: There are numerous calcified gallstones. A tiny hiatal hernia is noted there is trace perisplenic ascites. A subcentimeter cyst is noted in the upper pole of the left kidney. Skeletal structures: The skeletal structures are osteopenic. Degenerative change is noted in the shoulders and thoracic spine. There is a superior endplate compression deformity of T9. No lytic or blastic bony lesions are seen. Soft tissues: A pacemaker is present in the left upper chest wall. Streak artifact from the pacemaker degrades assessment of the sternum soft tissues. There is mild soft tissue stranding. No fluid collection is identified. IMPRESSION: 1. A 2-lead cardiac pacemaker is in place. Mild stranding within the soft tissues around the pacemaker in the left upper chest wall could represent postoperative change versus soft tissue infection. Clinical correlation will be required. 2. No fluid collection is identified around the pacemaker to suggest abscess. 3. Cardiomegaly with evidence of congestive failure. 4. There are trace pleural effusions. 5. Changes of interstitial lung disease are similar to previous. 6. Dependent airspace opacities at both lung bases likely represents a combination of atelectasis and chronic lung disease. Correlate clinically for evidence of a superimposed infectious/inflammatory pneumonitis. 7. Cholelithiasis. 8. Additional findings as above. Electronically signed by: Alejandro Tom M.D. 08/31/2018 7:43 AM Dictated: 08/31/18 0735 Transcribed: 08/31/18 0735
--- NOTE | 2018-08-31 11:33 | Post Operative Brief Note ---
Cardiology Brief Post Op Date of Surgery August 31, 2018 Pre & Post Diagnosis Preprocedure diagnosis: Sepsis, suspected pacemaker pocket infection, rule out endocarditis Post procedure diagnosis: No evidence of valvular vegetation or vegetation on the right atrial right ventricular pacemaker leads Operation Date: 08/31/18 10:50 Procedure Transesophageal echocardiogram: After informed consent was obtained and a timeout was performed patient was sedated with the assistance of the anesthesia team receiving a total of 240 mg of IV propofol and 40 mg of IV lidocaine. Moderate tricuspid valve regurgitation was noted. There was no valvular vegetation noted on the mitral valve, tricuspid valve, pulmonic valve, or aortic valve. The right atrial and right ventricular pacemaker leads were well visualized without evidence of adherent vegetation. The patient tolerated the procedure well. Vital signs remained stable. Police Patrol Lieutenant DO Assistant Kojo Boyle RCS Estimated Blood Loss 0 Findings Consistent with Post-Op Diagnosis Anesthesia Type MAC Complications none
--- NOTE | 2018-08-31 11:39 | Communication Note ---
Date of Service: August 31, 2018 I updated the patient's daughter, Norah, by phone that the ORAL revealed no vegetation.
[2018-08-31] MEDS ORDERED: ePHEDrine sulfate 50 MG/ML SYR ONE (11:48)
[2018-08-31] MEDS ORDERED: PROPOFOL IV EMULSION 10 MG/ML 20 ML VIAL IV ONE (11:48)
[2018-08-31] MEDS ORDERED: PHENYLEPHRINE 100MCG/ML 5ML SYR ONE (11:48)
[2018-08-31] MEDS ORDERED: LIDOCAINE HCL 2% 2 ML VIAL/AMP(20MG/ML) INFIL ONE (11:48)
--- NOTE | 2018-08-31 11:52 | Anesthesiology Progress Note ---
Date of Service August 31, 2018 Anesthesia Post Procedure Vital Signs Vital Signs: Temp Pulse Pulse Resp BP BP Pulse Ox 08/31/18 07:03 37.9 C H 101 H 16 104/56 L 97 08/31/18 05:47 37.6 C H 08/31/18 04:21 39.1 C H 08/31/18 03:52 110 H 08/31/18 03:02 38.4 C H 110 H 22 125/74 99 08/31/18 02:30 109 H 30 H 127/65 08/31/18 02:00 106 H 28 H 121/62 96 08/31/18 01:36 110 H 32 H 130/78 95 08/31/18 01:00 114 H 24 98 08/31/18 00:41 38.1 C H 08/31/18 00:30 90 34 H 97 08/31/18 00:00 101 H 33 H 98 08/30/18 23:30 122 H 32 H 98 08/30/18 23:00 107 H 24 100 08/30/18 22:59 38.1 C H 107 H 20 165/119 H 96 08/30/18 22:58 108 H 20 98 08/30/18 22:55 105 H 29 H 165/119 H 99 Transfer of Care Handoff Completed per policy Notes Mental Status: alert / awake / arousable Patient Amnestic to Procedure: Yes Nausea / Vomiting: adequately controlled Pain: adequately controlled Airway Patency, RR, SpO2: stable & adequate BP & HR: stable & adequate Hydration State: stable & adequate Anesthetic Complications: no major complications apparent and Pt Satisfied with anesthetic care
[2018-08-31] MEDS ORDERED: CONSULT PHARMACY STA (12:40)
[2018-08-31] MEDS ORDERED: VANCOMYCIN HCL 1,000 MG in SODIUM CHLORIDE 0.9% 250 ML IV SCH (14:00)
[2018-08-31] MEDS: HYDROCORTISONE SOD 50 MG in SYRINGE 0 ML IV SCH (16:03)
--- NOTE | 2018-08-31 17:28 | Hospitalist Progress Note ---
Date of Service August 31, 2018 Assessment & Plan (1) Sepsis: Secondary to pacemaker site infection, gram-positive bacteremia-MSSA hx SSS sp recent PPM Immunocompromised patient Hx Sjogren's syndrome on chronic steroid Rx Follow-up final wound and blood culture reports ID consulted Continue Zosyn IV Hydrocortisone stress dose ordered in light of patient's chronic prednisone use ORAL performed Plan for pacemaker exchange Hypertension, stable DM2 on oral meds, well controlled as of recent outpatient hemoglobin A1c of 7 last July 2018 ISS BG goal 1 40-1 80, may need basal insulin to attain goal DVT prophylaxis. Lovenox subcu Full code Patient's daughter requesting updates from providers. Subjective Follow-up for sepsis secondary to infected pacemaker site Seen resting in bed, sleeping but easily arousable States she feels tired Some soreness on the pacemaker incision site Denies headache, chest pain, shortness of breath, dizziness, palpitations Denies other symptoms Review of Systems Review of Systems: All systems reviewed & are unremarkable except as noted in HPI & below Physical Exam Physical Exam: General- oriented x 3, not in distress, speaks in sentences with no effort or accessory muscle use Head- atraumatic Eyes- PERRL, EOMI, anicteric ENT- oropharynx clear Neck- supple, no JVD, no adenopathy, no thyromegaly; carotids +2/2, no bruits appreciated Lungs- clear breath sounds bilaterally, no crackles or wheeze Heart- normal rate, regular rhythm; no murmur, no gallop, no rub appreciated Pacemaker incision site-positive scant yellow discharge, mild tenderness, erythema Abdomen- normal bowel sounds, nondistended, soft, nontender, no masses or hepatosplenomegaly Extremities- no pretibial edema, no calf tenderness; peripheral pulses intact Neuro- alert, oriented x 3; CN 2-12 grossly intact; motor 5/5 bilaterally;sensation 100% on all extremities; no other gross focal neurologic deficits Skin- warm & dry Results & Data Vital Signs (Past 12 Hours) Vital Signs Temp Pulse Resp BP Pulse Ox 08/31/18 15:07 36.9 C 92 H 20 117/67 99 08/31/18 11:59 37.0 C 95 H 18 115/67 99 08/31/18 07:03 37.9 C H 101 H 16 104/56 L 97 08/31/18 05:47 37.6 C H Laboratory Results Laboratory Results - last 24 hr 08/30/18 08/30/18 08/30/18 23:55 23:59 23:59 WBC 10.93 H RBC 3.71 L Hgb 12.2 Hct 36.0 L MCV 97.0 MCH 32.9 MCHC 33.9 RDW Std Deviation 46.6 H RDW Coeff of Gabriel 13.2 Plt Count 191 MPV 9.2 Immature Gran % (Auto) 0.3 Neut % (Auto) 89.8 Lymph % (Auto) 6.2 [place] % (Auto) 3.4 Eos % (Auto) 0.2 Baso % (Auto) 0.1 Immature Gran # (Auto) 0.03 H Neut # (Auto) 9.82 H Lymph # (Auto) 0.68 L [place] # (Auto) 0.37 Eos # (Auto) 0.02 Baso # (Auto) 0.01 PT 10.4 INR 1.0 Sodium Potassium Chloride Carbon Dioxide Anion Gap BUN Creatinine Est Cr Clr Drug Dosing Est GFR ( Amer) Est GFR (Non-Af Amer) BUN/Creatinine Ratio Glucose POC Glucose Lactate Calcium Magnesium Total Bilirubin Direct Bilirubin AST ALT Alkaline Phosphatase Troponin I NT-Pro-B Natriuret Pep Total Protein Albumin Lipase Urine Color Urine Appearance Urine pH Ur Specific [place] Urine Protein Urine Glucose (UA) Urine Ketones Urine Blood Urine Nitrite Urine Bilirubin Urine Urobilinogen Ur Leukocyte Esterase Urine WBC (Auto) Urine RBC (Auto) U Hyaline Cast (Auto) U Epithel Cells (Auto) Urine Bacteria (Auto) Bld Cult Staph aureus PCR Positive A Blood Culture MRSA PCR Negative 08/30/18 08/30/18 08/31/18 23:59 23:59 01:35 WBC RBC Hgb Hct MCV MCH MCHC RDW Std Deviation RDW Coeff of Gabriel Plt Count MPV Immature Gran % (Auto) Neut % (Auto) Lymph % (Auto) [place] % (Auto) Eos % (Auto) Baso % (Auto) Immature Gran # (Auto) Neut # (Auto) Lymph # (Auto) [place] # (Auto) Eos # (Auto) Baso # (Auto) PT INR Sodium 133 L Potassium 4.0 Chloride 95 L Carbon Dioxide 32 Anion Gap 6.0 BUN 21 H Creatinine 0.79 Est Cr Clr Drug Dosing 60.4 Est GFR ( Amer) 81.4 Est GFR (Non-Af Amer) 70.2 BUN/Creatinine Ratio 26.2 H Glucose 160 H POC Glucose Lactate 1.2 Calcium 8.5 Magnesium 1.7 L Total Bilirubin 0.4 Direct Bilirubin < 0.1 AST 21 ALT 23 Alkaline Phosphatase 60 Troponin I 0.035 NT-Pro-B Natriuret Pep 946 Total Protein 7.1 Albumin 3.4 Lipase 298 Urine Color Yellow Urine Appearance Clear Urine pH 7.0 Ur Specific [place] 1.017 Urine Protein Trace H Urine Glucose (UA) Negative Urine Ketones Negative Urine Blood Negative Urine Nitrite Negative Urine Bilirubin Negative Urine Urobilinogen Negative Ur Leukocyte Esterase Negative Urine WBC (Auto) 1-5 Urine RBC (Auto) 0-4 U Hyaline Cast (Auto) 0 U Epithel Cells (Auto) 5-10 H Urine Bacteria (Auto) Negative Bld Cult Staph aureus PCR Blood Culture MRSA PCR 08/31/18 08/31/18 08/31/18 03:17 05:40 05:40 WBC 17.94 H RBC 3.33 L Hgb 10.6 L Hct 32.0 L MCV 96.1 MCH 31.8 MCHC 33.1 RDW Std Deviation 46.4 H RDW Coeff of [place] 13.3 Plt Count 155 MPV 9.2 Immature Gran % (Auto) 0.4 Neut % (Auto) 89.4 Lymph % (Auto) 2.4 [place] % (Auto) 7.6 Eos % (Auto) 0.1 Baso % (Auto) 0.1 Immature Gran # (Auto) 0.07 H Neut # (Auto) 16.03 H Lymph # (Auto) 0.43 L [place] # (Auto) 1.37 H Eos # (Auto) 0.02 Baso # (Auto) 0.02 PT INR Sodium 131 L Potassium 3.6 Chloride 94 L Carbon Dioxide 30 Anion Gap 7.0 BUN 19 H Creatinine 0.87 Est Cr Clr Drug Dosing 51.5 Est GFR ( Amer) 72.4 Est GFR (Non-Af Amer) 62.5 BUN/Creatinine Ratio 22.5 H Glucose 153 H POC Glucose 158 H Lactate Calcium 8.2 L Magnesium 1.5 L Total Bilirubin Direct Bilirubin AST ALT Alkaline Phosphatase Troponin I NT-Pro-B Natriuret Pep Total Protein Albumin Lipase Urine Color Urine Appearance Urine pH Ur Specific [place] Urine Protein Urine Glucose (UA) Urine Ketones Urine Blood Urine Nitrite Urine Bilirubin Urine Urobilinogen Ur Leukocyte Esterase Urine WBC (Auto) Urine RBC (Auto) U Hyaline Cast (Auto) U Epithel Cells (Auto) Urine Bacteria (Auto) Bld Cult Staph aureus PCR Blood Culture MRSA PCR 08/31/18 08/31/18 08/31/18 06:04 12:04 16:36 WBC RBC Hgb Hct MCV MCH MCHC RDW Std Deviation RDW Coeff of [place] Plt Count MPV Immature Gran % (Auto) Neut % (Auto) Lymph % (Auto) [place] % (Auto) Eos % (Auto) Baso % (Auto) Immature Gran # (Auto) Neut # (Auto) Lymph # (Auto) [place] # (Auto) Eos # (Auto) Baso # (Auto) PT INR Sodium Potassium Chloride Carbon Dioxide Anion Gap BUN Creatinine Est Cr Clr Drug Dosing Est GFR ( Amer) Est GFR (Non-Af Amer) BUN/Creatinine Ratio Glucose POC Glucose 169 H 211 H 259 H Lactate Calcium Magnesium Total Bilirubin Direct Bilirubin AST ALT Alkaline Phosphatase Troponin I NT-Pro-B Natriuret Pep Total Protein Albumin Lipase Urine Color Urine Appearance Urine pH Ur Specific [place] Urine Protein Urine Glucose (UA) Urine Ketones Urine Blood Urine Nitrite Urine Bilirubin Urine Urobilinogen Ur Leukocyte Esterase Urine WBC (Auto) Urine RBC (Auto) U Hyaline Cast (Auto) U Epithel Cells (Auto) Urine Bacteria (Auto) Bld Cult Staph aureus PCR Blood Culture MRSA PCR
[2018-08-31] MEDS: ARTIFICIAL TEARS OP SCH (20:16)
[2018-09-01] MEDS: HYDROCORTISONE SOD 50 MG in SYRINGE 0 ML IV SCH ×4 (00:23→23:17)
[2018-09-01] MEDS: INSULIN ASPART 100 UNITS/ML 3 ML PEN SC SCH ×5 (00:26→20:17)
[2018-09-01] MEDS: PIPERACILLIN/TAZOBACTAM 3.375 GM in DEXTROSE 5% 100 ML IV SCH ×3 (04:07→20:06)
[2018-09-01] MEDS: LEVOTHYROXINE SODIUM 50 MCG TABLET PO SCH (06:03)
[2018-09-01] MEDS: ERYTHROMYCIN OP OINT 5 MG/GM 3.5 GM TUBE OP SCH ×4 (08:12→20:11)
[2018-09-01 08:26] LABS: Basophils # (auto) 0.01 K/uL (0-0.2); Basophils % (auto) 0.1 %; Hematocrit (blood only) 30.4 % (37-47); Hemoglobin 10.1 g/dL (12.0-16.0); Immature Granulocytes # (auto) 0.02 K/uL (0.00-0.02); Immature Granulocytes % (auto) 0.2 %; Lymphocytes # (auto) 0.36 K/uL (1.2-3.4); Mean Corpuscular Volume 97.1 fL (80-100); Mean Platelet Volume 8.8 fL (7.4-10.4); Monocytes # (auto) 0.31 K/uL (0.11-0.59); Monocytes % (auto) 2.5 %; Neutrophils # (auto) 11.47 K/uL (1.4-6.5); Neutrophils % (auto) 94.2 %; Platelet Count 137 K/uL (130-400); RDW Coefficient of Variation 13.4 % (11.5-14.5); RDW Standard Deviation 47.5 fL (36.4-46.3); Red Blood Count 3.13 M/uL (4.2-5.4); White Blood Count 12.17 K/uL (4.8-10.8)
--- NOTE | 2018-09-01 08:34 | CT Scan Report ---
CT OF THE ABDOMEN AND PELVIS WITH CONTRAST CLINICAL HISTORY: Abdominal pain, nausea and vomiting. COMPARISON STUDY: CT of the abdomen and pelvis December 11, 2016. TECHNIQUE: Following IV administration of 93 mL of Optiray-320, axial images of the abdomen and pelvi s were obtained from the lung bases to the proximal femurs. Images were reviewed in the axial, sagitt al, and coronal planes. IV contrast was administered without complication. Automated exposure contro l was utilized for the study. A dose lowering technique was utilized adhering to the principles of A RUIZ. Due to technical difficulty, this study became available for interpretation at 8:20 AM on September 01, 2018. FINDINGS: Please note that the chest CT will be reported separately. No pneumatosis, free air or port al venous gas is present. There are gallstones within the gallbladder without CT evidence for acute c holecystitis. The liver, spleen, adrenal glands and pancreas are unremarkable. There is no biliary or pancreatic ductal dilatation. Subcentimeter left renal cyst is noted. No hydronephrosis. There is no evidence for a bowel obstruction. The appendix is not identified. Extensive sigmoid diverticulosis i s noted without evidence for acute diverticulitis. Bladder is distended. There is no lymphadenopathy. No suspicious osseous lesions are noted. IMPRESSION: 1. No acute process within the abdomen or pelvis. 2. Cholelithiasis. 3. Extensive sigmoid diverticulosis without evidence for acute diverticulitis. Electronically signed by: Jamie العراقي M.D. 09/01/2018 8:32 AM
[2018-09-01 08:37] LABS: Mean Corpuscular Hgb Conc 33.2 g/dL (32-36)
[2018-09-01 08:42] LABS: Albumin Level 2.7 gm/dl (3.4-5.0); BUN Creatinine Ratio 17.9 (10-20); Calcium 8.4 mg/dl (8.5-10.1); Est GFR (African American) 85.3; Est GFR (Non-African American) 73.6; Potassium 3.7 mmol/L (3.5-5.1)
[2018-09-01 08:45] LABS: Albumin Globulin Ratio 0.8 (0.9-2); Bilirubin,Total 0.4 mg/dl (0.2-1); Globulin 3.3 gm/dl (2.5-4.0)
[2018-09-01] MEDS: PANTOprazole 40 MG TAB PO SCH (09:50)
[2018-09-01] MEDS: CEROVITE ADV FORMULA TAB PO SCH (09:50)
[2018-09-01] MEDS: METOPROLOL SUCC 50MG EXT REL TAB PO SCH (09:50)
[2018-09-01] MEDS: ROSUVASTATIN CALCIUM 10 MG TAB PO SCH (09:50)
[2018-09-01] MEDS ORDERED: CEFAZOLIN 2000MG 2,000 MG/15 ML SYR IV SCH (10:30)
[2018-09-01] MEDS ORDERED: PIPERACILL/TAZOBAC CONSULT ACTIVE PRN (11:36)
--- NOTE | 2018-09-01 11:44 | Cardiology Progress Note ---
Date of Service September 01, 2018 Assessment & Plan (1) Infection of pacemaker pocket: Patient with staph aureus bacteremia. Infectious disease input noted and appreciated, she remains on Zosyn, day 2. Plan for device extraction later today by EP. (2) Mobitz type 2 second degree atrioventricular block: 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 Has an escape rhythm in the 40s on device interrogation. Case discussed with Dr. Baird, will determine need for / benefits and risks of bridging with temporary pacemaker versus permitting her to remain in her tribe rhythm, post device extraction to allow an interval of IV antibiotic therapy prior to replacing permanent pacemaker. -Will plan on ordering repeat blood cultures on 09/02/18, an will need to ensure her blood is sterile prior to replacing device. Hold metoprolol. (3) Interstitial lung disease: Crackles noted on exam today. This may very well be due to her underlying interstitial lung disease. I do not think she is definitely volume overloaded. At this point we will discontinue her maintenance IV fluids normal saline at 80 mL's per hour and will hold off on diuretic therapy. DVT prophylaxis: Subcutaneous Lovenox 30 mg held this morning pending invasive procedure, will likely resume this tomorrow. Subjective Chief Complaint: follow up fever, generalized illness Subjective: Patient seen and examined. Her daughter, Norah is accompanying her at the bedside today. Her fever has improved, most recent temperature this morning at 10:50 AM was 37 C. She has been afebrile since 08/31/2018 at 11:59 AM. Review of Systems Review of Systems: All systems reviewed & are unremarkable except as noted in HPI & below Physical Exam Physical Exam: Temp Pulse Resp BP Pulse Ox 37.0 C 96 H 22 150/84 H 96 09/01/18 10:50 09/01/18 10:50 09/01/18 10:50 09/01/18 10:50 09/01/18 10:50 Constitutional: + ill appearing (Without acute distress, certainly appears improved compared to 08/31/2018) Respiratory: Auscultation: + crackles; no rhonchi and no wheezes Cardiovascular: RRR, no murmur, no edema Vessels: no JVD Extremities: no edema Chest (Breasts): Chest: + pacemaker (Left infraclavicular pacemaker pocket with ongoing mild erythema, and drainage from incision site, unchanged compared to yesterday. She states that it was tender to palpation yesterday and this has improved.) Gastrointestinal (Abdomen): normal bowel sounds, soft, nontender, no hepatosplenomegaly Neurologic: PERRL, EOMI, accommodation nl, no face palsy, no dysarthria Results & Data Laboratory Results Cardiac Enzymes 09/01/18 Range/Units 08:18 AST 19 (15-37) U/L CBC 09/01/18 Range/Units 08:18 WBC 12.17 H (4.8-10.8) K/uL RBC 3.13 L (4.2-5.4) M/uL Hgb 10.1 L (12.0-16.0) g/dL Hct 30.4 L (37-47) % Plt Count 137 (130-400) K/uL Neut # (Auto) 11.47 H (1.4-6.5) K/uL Lymph # (Auto) 0.36 L (1.2-3.4) K/uL [place] # (Auto) 0.31 (0.11-0.59) K/uL Eos # (Auto) 0.00 (0-0.5) K/uL Baso # (Auto) 0.01 (0-0.2) K/uL Comprehensive Metabolic Panel 09/01/18 Range/Units 08:18 Sodium 137 (136-145) mmol/L Potassium 3.7 (3.5-5.1) mmol/L Chloride 102 (98-107) mmol/L Carbon Dioxide 29 (21-32) mmol/L BUN 14 (7-18) mg/dl Creatinine 0.76 (0.6-1.2) mg/dl Glucose 156 H (70-99) mg/dl Calcium 8.4 L (8.5-10.1) mg/dl AST 19 (15-37) U/L ALT 19 (12-78) U/L Alkaline Phosphatase 46 (45-117) U/L Total Protein 6.0 L (6.4-8.2) gm/dl Albumin 2.7 L (3.4-5.0) gm/dl Intake and Output 08/31/18 09/01/18 09/01/18 22:59 06:59 14:59 Intake Total 2160 / 2325.5 115 / 2325.5 115 / 115 Output Total 2600 / 3250 650 / 3250 Balance -440 / -924.5 -535 / -924.5 115 / 115 Intake: IV 1385 / 1550.5 115 / 1550.5 115 / 115 Zosyn 3.375 gm In D5 100 ml @ 115 / 230 115 / 230 115 / 115 28.75 mls/hr IV Q8H [facility] Rx#: [id number] Nss 1000ML 1,000 ml @ 80 mls/hr 1000 / 1000 IV .[id number] [facility] Rx#:[id number] Vancomycin HCl 1,000 mg In Nss 270 / 270 250 ml @ 125 mls/hr IV Q12H [facility] Rx#:[id number] Oral 775 / 775 Output: Urine 1700 / 2350 650 / 2350 Other 900 / 900 Other: Other Intake Source NPO Weight 64.4 kg Diagnostic Findings 2 of 2 blood cultures drawn 08/30/2018 at 23: 59 are positive for staph aureus, sensitivity pending. The preliminary wound culture is notable for gram-negative bacilli as well as staph aureus. Medications Administered Current Inpatient Medications Acetaminophen (Tylenol) 650 mg PO Q4H PRN PRN Reason: Pain or Fever Stop: 09/30/18 03:45 Last Admin: 08/31/18 20:14 Dose: 650 mg Documented by: Amlodipine Besylate (Norvasc) 5 mg PO DAILY [facility] Stop: 09/30/18 08:59 Last Admin: 08/31/18 10:00 Dose: 5 mg Documented by: Artificial Tears (Artificial Tears) 1 drops OP HS [facility] Stop: 09/30/18 20:59 Last Admin: 08/31/18 20:16 Dose: 1 drops Documented by: Dextrose (Dextrose 50%) 25 - 50 ml IV UD PRN; Protocol PRN Reason: Hypoglycemia Protocol Stop: 09/30/18 03:45 Docusate Sodium (Colace) 100 mg PO BID PRN PRN Reason: CONSTIPATION Stop: 09/30/18 06:29 Enoxaparin Sodium (Lovenox) 30 mg SQ QAM [facility] Stop: 09/30/18 08:59 Last Admin: 08/31/18 08:25 Dose: 30 mg Documented by: Erythromycin (Erythromycin) 1 appln OP QID [facility] Stop: 09/10/18 08:59 Last Admin: 09/01/18 08:12 Dose: 1 appln Documented by: Glucagon (Glucagen) 1 mg SQ UD PRN; Protocol PRN Reason: Hypoglycemia Protocol Stop: 09/30/18 03:45 Glucose (Glucose 40%) 15 - 30 gm PO UD PRN; Protocol PRN Reason: Hypoglycemia Protocol Stop: 09/30/18 03:45 Glucose (Dex4 Glucose) 4 - 8 tabs PO UD PRN; Protocol PRN Reason: Hypoglycemia Protocol Stop: 09/30/18 03:45 Hydromorphone HCl (Dilaudid) 0.25 mg IV Q3H PRN PRN Reason: Pain Stop: 09/14/18 03:45 Promethazine HCl 12.5 mg/ (Sodium Chloride) 50.5 mls @ 202 mls/hr IV Q6H PRN PRN Reason: Nausea And Vomiting Stop: 09/30/18 00:49 Last Infusion: 08/31/18 08:50 Dose: Infused Documented by: Sodium Chloride (Nss 1000ml) 1,000 mls @ 80 mls/hr IV .[id number] [facility] Stop: 09/30/18 02:29 Last Admin: 08/31/18 19:45 Dose: 80 mls/hr Documented by: Hydrocortisone Sodium (Succinate 50 mg/ Syringe) 1 mls @ 4 mls/min IV Q8H [facility] Stop: 09/30/18 15:59 Last Admin: 09/01/18 08:12 Dose: 4 mls/min Documented by: Cefazolin Sodium (Ancef 2000mg) 2,000 mg in 15 mls @ 3.75 mls/min IV Q8H [facility] Stop: 09/15/18 10:29 Last Admin: 09/01/18 10:38 Dose: 3.75 mls/min Documented by: Insulin Aspart (Novolog Flexpen) 0 units SC Q6 [facility] Stop: 09/30/18 05:59 Last Admin: 09/01/18 06:12 Dose: Not Given Documented by: Levothyroxine Sodium (Synthroid) 50 mcg PO DAILYBB [facility] Stop: 09/30/18 06:29 Last Admin: 09/01/18 06:03 Dose: 50 mcg Documented by: Metoprolol Succinate (Toprol Xl) 50 mg PO BID [facility] Stop: 09/30/18 06:29 Last Admin: 09/01/18 09:50 Dose: Not Given Documented by: Miscellaneous (Order Awaiting Action) 1 ea N/A QS [facility] Stop: 09/30/18 07:59 Last Admin: 09/01/18 09:50 Dose: Not Given Documented by: Miscellaneous (Carbohydrates For Hypoglycemia) 15 - 30 gm PO UD PRN PRN Reason: Hypoglycemia Treatment Stop: 09/30/18 03:45 Multivitamins/Minerals (Multivitamin W/ Minerals Tab) 1 tab PO DAILY [facility]; Protocol Stop: 09/30/18 08:59 Last Admin: 09/01/18 09:50 Dose: Not Given Documented by: Pantoprazole Sodium (Protonix) 40 mg PO DAILY [facility]; Protocol Stop: 09/30/18 08:59 Last Admin: 09/01/18 09:50 Dose: Not Given Documented by: Rosuvastatin Calcium (Crestor) 10 mg PO DAILY [facility] Stop: 09/30/18 08:59 Last Admin: 09/01/18 09:50 Dose: Not Given Documented by: Tramadol HCl (Ultram) 25 mg PO Q4H PRN PRN Reason: Pain Stop: 09/30/18 03:45
[2018-09-01] MEDS ORDERED: BACITRACIN INJ 50,000 UNIT VIAL ONE (12:41)
[2018-09-01] MEDS ORDERED: BUPIVACAINE 0.25% 30 ML VIAL ONE (12:41)
[2018-09-01] MEDS ORDERED: LIDOCAINE HCL 1% 20 ML VIAL ONE (12:41)
--- NOTE | 2018-09-01 12:44 | History & Physical Bridge Note ---
Date of Service September 01, 2018 History & Physical Bridge Note I have examined the patient, reviewed the History & Physical and in the interval since the performance of the History & Physical I have noted the following changes of clinical significance: Pt with bactermia and infected recently implanted pacemaker. She is for a pacemaker extraction; hopefully will not need a TVP as her underlying rhythm has been stable with a 2:1 AV block in the 40s.
--- NOTE | 2018-09-01 12:47 | Pre Anesthesia Assessment ---
Date of Service September 01, 2018 Pre Sedation Assessment Vital Signs Temp Pulse Pulse Resp BP Pulse Ox 09/01/18 10:50 37.0 C 96 H 22 150/84 H 96 09/01/18 07:14 37.3 C 95 H 18 145/82 H 95 09/01/18 03:11 36.9 C 93 H 18 149/80 H 100 08/31/18 23:41 88 08/31/18 23:22 37.0 C 85 17 127/69 100 08/31/18 19:31 37.2 C 94 H 18 134/72 98 08/31/18 15:07 36.9 C 92 H 20 117/67 99 Cardiovascular RRR, no murmur, no edema Respiratory + crackles Pre-Sedation Airway Assessment Smoking Status: Never smoker Hx Sleep Apnea: No Hx Difficult Intubation: No Thyromental Distance: > or= 3.5 Finger Breadths Mallampati Class: II ASA: ASA3 NPO Status Date of Last Intake of Fluids: 08/31/18 Date of Last Intake of Solid Food: 08/31/18 Procedure Planning Contraindications for Sedation: none Current Medications Reviewed: Yes Notes The planned sedation has been discussed with the patient. Informed Consent was obtained. I have identified the patient, determined the appropriateness of sedation and have assessed the patient immediately prior to the procedure. All medicine(s) and interventions are by my order.
[2018-09-01] MEDS ORDERED: fentaNYL citrate 100 MCG/2 ML VIAL ONE (12:52)
[2018-09-01] MEDS ORDERED: MIDAZOLAM HCL 5 MG/ML 1 ML VIAL ONE (12:52)
--- NOTE | 2018-09-01 14:26 | Critical Care Consultation ---
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 -currently bradycardic, in sinus rhythm -will continue to monitor with plan for emergent temp pacemaker placement in neck should any block occur -Echo 08/31 with no evidence of infective vegetations on valves or pacemaker leads -CT scan 08/31- shows evidence of CHF, trace pleural effusions. Crackles heard on exam, no lower extremity swelling. Pt currently w/o SOB, on baseline 2L O2. Can consider low dose lasix should oxygen requirement increase. -EKG 08/31--with sinus rhythm, LVH and qtc of 482 -continue home amlodipine for HTN, hold metoprolol. -continue home crestor for HLD -appreciate cards consult RESPIRATORY -Pt with Hx of sjogrens, interstitial lung disease -On 2L of oxygen at home, currently on same. At baseline. -continue hydrocortisone IV -continue home atrovent, albuterol and dulera (advair since nonformulary) as needed GI -diet: clear liquids -continue home docusate -consider adding additional miralax given pt's Hx of not having a BM in a few days, plus use of PRN opiods. -Protonix daily ENDO -Pt with Hx of hypothyroidism and DM -continue synthroid for hypothyroidism -hold home metformin; ICU protocol for hyperglycemia RENAL//ELECTROLYTES -No concerns currently -Pt with documented Hx of CKD stage 3, however Cr function within normal limits -will continue to monitor and replace electrolytes as needed HEME -Currently anemic, likely post procedural -will continue to monitor ID -Pt with documented MSSA and gram neg infection of pacemaker -Blood cultures positive for MSSA -Wound culture with both staph and gram neg infection -currently afebrile with downtrending elevated WBC -Continue Zosyn DVT prophylaxis: Lovenox 30mg PIVs-intact Code Status: Full Dispo: ICU for monitoring post pacemaker removal Supervising Physician Co-Signing Physician Notes Dr. Juárez was resident physician during care of patient. I separately evaluated patient for eid portions of the history and the exam. I was present during the critical portion of medical decision making, and I discussed the case with the resident. I generally agree with the findings and plan. Discussed with Dr. Brandt, have pacer equipment near the bedside however after pacer removal she has maintained a 2-1 conduction block however she has adequate blood pressure and inadequate heart rate. I consented the patient for both central line placement and temporary pacemaker placement and advised her the ideal situation is that she becomes hemodynamically unstable to have the cardiac cath team placed temporary pacemaker and if it requires emergent intervention we will proceed at that time. Patient remains critically ill due to 2-1 conduction delay and recent pacemaker removal with concern for further complications, as well as MSSA bacteremia I have personally spent 40 minutes of critical care time in the direct management of this patient. This is a life/limb threatening event. This includes time spent evaluating patient, direct bedside care, chart review, placing orders, interpretation of diagnostic studies, discussion with consultants, patient, and/or family members regarding treatment decisions, as well as other required patient management activities. This time is exclusive of all separately billable procedures, and teaching time and separate from and in addition to any other critical care service time. 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 Pt states that she currently feels fine. Denies fevers, chills, night sweats, feelings of dizziness or lightheadedness, chest pain, SOB on her 2L oxygen, nausea or vomitting, diarhea or abdominal pain. She is currently bradycardic in sinus rhythm. Allergies Allergy/AdvReac Type Severity Reaction Status Date / Time Bactrim Allergy Severe edema Unverified 05/23/17 00:18 face/lips/tongue sulfamethoxazole Allergy Severe edema Unverified 08/30/18 23:11 face/lips/tongue trimethoprim Allergy Severe edema Unverified 08/30/18 23:11 face/lips/tongue latex Allergy Mild LOCAL SKIN Unverified 08/30/18 23:11 REACTION niacin Allergy Mild RASH Unverified 08/30/18 23:11 Cipro AdvReac Intermediate GI SYMPTOMS Verified 05/23/17 00:18 ciprofloxacin AdvReac Intermediate GI SYMPTOMS Verified 08/30/18 23:11 metronidazole AdvReac Intermediate GI SYMPTOMS Verified 08/30/18 23:11 naproxen AdvReac Intermediate BURNING Unverified 08/30/18 23:11 STOMACH Home Medications Home Medications Medication Instructions Recorded Confirmed Type Artificial Tears (PF) 1 drp OPHTHALMIC (EYE) HS 07/30/18 08/30/18 History Dulera 2 puff INHALATION Q12H 07/30/18 08/30/18 History albuterol sulfate 2 puff INHALATION Q6H PRN 07/30/18 08/30/18 History amlodipine 5 mg PO DAILY 07/30/18 08/30/18 History levothyroxine 50 mcg PO DAILY 07/30/18 08/30/18 History metformin 500 mg PO BID 07/30/18 08/30/18 History omeprazole 20 mg PO DAILY 07/30/18 08/30/18 History rosuvastatin [Crestor] 10 mg PO DAILY 07/30/18 08/30/18 History triamcinolone acetonide 1 applic TOPICAL BID 07/30/18 08/30/18 History Ocuvite Eye Plus Multi 2 tab PO DAILY 08/18/18 08/30/18 History Probiotic 3,000 mmu cells PO DAILY 08/18/18 08/30/18 History acetaminophen [Acetaminophen Extra 1,000 mg PO BID PRN 08/18/18 08/30/18 History Strength] calcium polycarbophil [Fiber 1,250 mg PO DAILY 08/18/18 08/30/18 History (calcium polycarbophil)] docusate sodium 100 mg PO BID PRN 08/18/18 08/30/18 History erythromycin 1 applic OPHTHALMIC (EYE) QID 08/18/18 08/30/18 History ipratropium bromide 0.5 mg INHALATION Q4H PRN 08/18/18 08/30/18 History metoprolol succinate 50 mg PO BID 08/18/18 08/30/18 History prednisone 10 mg PO DAILY 08/18/18 08/30/18 History Patient History Medical History Sjogren's syndrome with lung involvement (Chronic) Retinal vein occlusion (Chronic) Pulmonary hypertension (Chronic) GERD (gastroesophageal reflux disease) (Chronic) Dyslipidemia (Chronic) CKD (chronic kidney disease), stage III (Chronic) Hypertension (Chronic) Osteoporosis (Chronic) Central retinal vein occlusion of left eye (Chronic) Diverticulosis of colon (Chronic) History of pacemaker Tachy-cierra syndrome GERD (gastroesophageal reflux disease) (Inactive) Surgical History Status post tubal ligation (Chronic) Status post appendectomy (Chronic) History of appendectomy (Resolved) Family History Other Heart disease Social History Preferred Language: [place] Citizen Communication Ability: Effective Bicycle I Assembler Required: No Beliefs That Will Affect Care: None marital status: / Current Living Situation: Family Current Living Situation Comment: Patient's son, Lorenzo, lives with her. current occupational status: retired Other Information That Helps Us Care for You: No Feels Safe at Home: Yes Safety Concerns: Feels Safe At This Time Smoking Status: Never smoker Hx Alcohol Use: Yes Alcohol type: beer Hx Substance Use: No Review of Systems Review of Systems: All systems reviewed & are unremarkable except as noted in HPI & below Physical Exam Physical Exam: General: Alert, oriented. No acute distress. HEENT: NC/AT, Nasal cannula in nares Chest: Nontender to palpation. CV: RRR, Normal s1, s2. Resp: Breath sounds clear bilaterally with crackles noted at the bases of the lungs bilaterally. Abdomen: Soft, mildly tender in lower quadrants bilaterally. No guarding. Extremities: No edema in lower extremities bilaterally. Results & Data Vital Signs (Past 12 Hours) Vital Signs Temp Pulse Resp BP Pulse Ox 09/01/18 10:50 37.0 C 96 H 22 150/84 H 96 09/01/18 07:14 37.3 C 95 H 18 145/82 H 95 09/01/18 03:11 36.9 C 93 H 18 149/80 H 100 Laboratory Results Laboratory Results - last 24 hr 08/31/18 08/31/18 09/01/18 16:36 21:16 00:22 WBC RBC Hgb Hct MCV MCH MCHC RDW Std Deviation RDW Coeff of Gabriel Plt Count MPV Immature Gran % (Auto) Neut % (Auto) Lymph % (Auto) Saline % (Auto) Eos % (Auto) Baso % (Auto) Immature Gran # (Auto) Neut # (Auto) Lymph # (Auto) Saline # (Auto) Eos # (Auto) Baso # (Auto) Sodium Potassium Chloride Carbon Dioxide Anion Gap BUN Creatinine Est Cr Clr Drug Dosing Est GFR ( Amer) Est GFR (Non-Af Amer) BUN/Creatinine Ratio Glucose POC Glucose 259 H 198 H 154 H Calcium Total Bilirubin AST ALT Alkaline Phosphatase Total Protein Albumin Globulin Albumin/Globulin Ratio 09/01/18 09/01/18 09/01/18 06:02 08:18 08:18 WBC 12.17 H RBC 3.13 L Hgb 10.1 L Hct 30.4 L MCV 97.1 MCH 32.3 MCHC 33.2 RDW Std Deviation 47.5 H RDW Coeff of Gabriel 13.4 Plt Count 137 MPV 8.8 Immature Gran % (Auto) 0.2 Neut % (Auto) 94.2 Lymph % (Auto) 3.0 Saline % (Auto) 2.5 Eos % (Auto) 0.0 Baso % (Auto) 0.1 Immature Gran # (Auto) 0.02 Neut # (Auto) 11.47 H Lymph # (Auto) 0.36 L Saline # (Auto) 0.31 Eos # (Auto) 0.00 Baso # (Auto) 0.01 Sodium 137 Potassium 3.7 Chloride 102 Carbon Dioxide 29 Anion Gap 6.0 BUN 14 Creatinine 0.76 Est Cr Clr Drug Dosing 59.0 Est GFR ( Amer) 85.3 Est GFR (Non-Af Amer) 73.6 BUN/Creatinine Ratio 17.9 Glucose 156 H POC Glucose 156 H Calcium 8.4 L Total Bilirubin 0.4 AST 19 ALT 19 Alkaline Phosphatase 46 Total Protein 6.0 L Albumin 2.7 L Globulin 3.3 Albumin/Globulin Ratio 0.8 L 09/01/18 11:35 WBC RBC Hgb Hct MCV MCH MCHC RDW Std Deviation RDW Coeff of Gabriel Plt Count MPV Immature Gran % (Auto) Neut % (Auto) Lymph % (Auto) Saline % (Auto) Eos % (Auto) Baso % (Auto) Immature Gran # (Auto) Neut # (Auto) Lymph # (Auto) Saline # (Auto) Eos # (Auto) Baso # (Auto) Sodium Potassium Chloride Carbon Dioxide Anion Gap BUN Creatinine Est Cr Clr Drug Dosing Est GFR ( Amer) Est GFR (Non-Af Amer) BUN/Creatinine Ratio Glucose POC Glucose 142 H Calcium Total Bilirubin AST ALT Alkaline Phosphatase Total Protein Albumin Globulin Albumin/Globulin Ratio Medications Administered Home Medications Artificial Tears (PF) 1 drp OPHTHALMIC (EYE) HS 07/30/18 [History Confirmed 08/30/18] Dulera 2 puff INHALATION Q12H 07/30/18 [History Confirmed 08/30/18] albuterol sulfate 2 puff INHALATION Q6H PRN 07/30/18 [History Confirmed 08/30/18] amlodipine 5 mg PO DAILY 07/30/18 [History Confirmed 08/30/18] levothyroxine 50 mcg PO DAILY 07/30/18 [History Confirmed 08/30/18] metformin 500 mg PO BID 07/30/18 [History Confirmed 08/30/18] omeprazole 20 mg PO DAILY 07/30/18 [History Confirmed 08/30/18] rosuvastatin [Crestor] 10 mg PO DAILY 07/30/18 [History Confirmed 08/30/18] triamcinolone acetonide 1 applic TOPICAL BID 07/30/18 [History Confirmed 08/30/18] Ocuvite Eye Plus Multi 2 tab PO DAILY 08/18/18 [History Confirmed 08/30/18] Probiotic 3,000 mmu cells PO DAILY 08/18/18 [History Confirmed 08/30/18] acetaminophen [Acetaminophen Extra Strength] 1,000 mg PO BID PRN 08/18/18 [History Confirmed 08/30/18] calcium polycarbophil [Fiber (calcium polycarbophil)] 1,250 mg PO DAILY 08/18/18 [History Confirmed 08/30/18] docusate sodium 100 mg PO BID PRN 08/18/18 [History Confirmed 08/30/18] erythromycin 1 applic OPHTHALMIC (EYE) QID 08/18/18 [History Confirmed 08/30/18] ipratropium bromide 0.5 mg INHALATION Q4H PRN 08/18/18 [History Confirmed 08/30/18] metoprolol succinate 50 mg PO BID 08/18/18 [History Confirmed 08/30/18] prednisone 10 mg PO DAILY 08/18/18 [History Confirmed 08/30/18] Active Medications Acetaminophen (Tylenol) 650 mg PO Q4H PRN PRN Reason: Pain or Fever Stop: 09/30/18 03:45 Last Admin: 08/31/18 20:14 Dose: 650 mg Documented by: Amlodipine Besylate (Norvasc) 5 mg PO DAILY [facility] Stop: 09/30/18 08:59 Last Admin: 08/31/18 10:00 Dose: 5 mg Documented by: Artificial Tears (Artificial Tears) 1 drops OP HS [facility]DIA Stop: 09/30/18 20:59 Last Admin: 08/31/18 20:16 Dose: 1 drops Documented by: Dextrose (Dextrose 50%) 25 - 50 ml IV UD PRN; Protocol PRN Reason: Hypoglycemia Protocol Stop: 09/30/18 03:45 Docusate Sodium (Colace) 100 mg PO BID PRN PRN Reason: CONSTIPATION Stop: 09/30/18 06:29 Enoxaparin Sodium (Lovenox) 30 mg SQ QAM [facility] Stop: 09/30/18 08:59 Last Admin: 08/31/18 08:25 Dose: 30 mg Documented by: Erythromycin (Erythromycin) 1 appln OP QID [facility] Stop: 09/10/18 08:59 Last Admin: 09/01/18 14:02 Dose: Not Given Documented by: Glucagon (Glucagen) 1 mg SQ UD PRN; Protocol PRN Reason: Hypoglycemia Protocol Stop: 09/30/18 03:45 Glucose (Glucose 40%) 15 - 30 gm PO UD PRN; Protocol PRN Reason: Hypoglycemia Protocol Stop: 09/30/18 03:45 Glucose (Dex4 Glucose) 4 - 8 tabs PO UD PRN; Protocol PRN Reason: Hypoglycemia Protocol Stop: 09/30/18 03:45 Hydromorphone HCl (Dilaudid) 0.25 mg IV Q3H PRN PRN Reason: Pain Stop: 09/14/18 03:45 Promethazine HCl 12.5 mg/ (Sodium Chloride) 50.5 mls @ 202 mls/hr IV Q6H PRN PRN Reason: Nausea And Vomiting Stop: 09/30/18 00:49 Last Infusion: 08/31/18 08:50 Dose: Infused Documented by: Piperacillin Sod/Tazobactam (Sod 3.375 gm/ Dextrose) 115 mls @ 28.75 mls/hr IV Q8H [facility]DIA; Protocol Stop: 09/10/18 09:59 Last Admin: 09/01/18 11:46 Dose: 28.8 mls/hr Documented by: Hydrocortisone Sodium (Succinate 50 mg/ Syringe) 1 mls @ 4 mls/min IV Q8H [facility] Stop: 09/30/18 15:59 Last Admin: 09/01/18 08:12 Dose: 4 mls/min Documented by: Insulin Aspart (Novolog Flexpen) 0 units SC Q6 [facility] Stop: 09/30/18 05:59 Last Admin: 09/01/18 12:30 Dose: Not Given Documented by: Levothyroxine Sodium (Synthroid) 50 mcg PO DAILYBB [facility] Stop: 09/30/18 06:29 Last Admin: 09/01/18 06:03 Dose: 50 mcg Documented by: Miscellaneous (Order Awaiting Action) 1 ea N/A QS [facility] Stop: 09/30/18 07:59 Last Admin: 09/01/18 09:50 Dose: Not Given Documented by: Miscellaneous (Carbohydrates For Hypoglycemia) 15 - 30 gm PO UD PRN PRN Reason: Hypoglycemia Treatment Stop: 09/30/18 03:45 Miscellaneous (Icu Protocol For Hyperglycemia) 1 ea N/A PRN PRN; Protocol PRN Reason: Hyperglycemia Protocol Stop: 09/03/18 15:15 Miscellaneous Information (Consult) 1 ea N/A UD PRN PRN Reason: Consult Stop: 10/01/18 11:35 Multivitamins/Minerals (Multivitamin W/ Minerals Tab) 1 tab PO DAILY NYDIA; Protocol Stop: 09/30/18 08:59 Last Admin: 09/01/18 09:50 Dose: Not Given Documented by: Oxycodone/Acetaminophen (Percocet 5mg/325mg) 1 - 2 tab PO Q6H PRN PRN Reason: Moderate-Severe Pain Stop: 09/15/18 14:04 Pantoprazole Sodium (Protonix) 40 mg PO DAILY NYDIA; Protocol Stop: 09/30/18 08:59 Last Admin: 09/01/18 09:50 Dose: Not Given Documented by: Rosuvastatin Calcium (Crestor) 10 mg PO DAILY [facility] Stop: 09/30/18 08:59 Last Admin: 09/01/18 09:50 Dose: Not Given Documented by: Tramadol HCl (Ultram) 25 mg PO Q4H PRN PRN Reason: Pain Stop: 09/30/18 03:45 PG Care Time/CCT Total # of Minutes Spent Total Time Spent with Patient: Total time spent is greater than 50% in coordination of care (as documented) at patient's floor/unit and/or counseling patient: Critical Care Time: Yes Total Critical Care Time: 40
--- NOTE | 2018-09-01 14:29 | Infectious Disease Progress Nt ---
Date of Service September 01, 2018 Assessment & Plan (1) Infection of pacemaker pocket: Patient with infected pacemaker pocket with MSSA bacteremia with gram- negative growing as well. Given growth of gram-negative's, will patient on Zosyn for now pending final identification and sensitivities. For removal of infected pacemaker. Will follow. (2) Bacteremia due to methicillin susceptible Staphylococcus aureus (MSSA): (3) Infection due to gram-negative anaerobic organism: Subjective Patient seen in follow-up for infected pacemaker pocket. Feeling better today, temperature has normalized. Blood cultures growing methicillin sensitive staph aureus. Culture from wound drainage also growing gram-negative bacilli this morning. Offers no other new complaints. Review of Systems Review of Systems: All systems reviewed & are unremarkable except as noted in HPI & below Physical Exam Constitutional: WD/WN, vitals as above comfortable; no acute distress Eyes: PERRL, conjunctivae normal, anicteric sclerae ENMT: external ear and nose normal, oropharynx normal Neck: trachea midline, no thyromegaly neck nontender Respiratory: normal respiratory effort, lungs clear to auscultation normal percussion; no respiratory distress Cardiovascular: Rate/Rhythm: regular rate and regular rhythm Heart Sounds: normal S1 and normal S2; no gallop, no murmur and no cardiac rub Gastrointestinal (Abdomen): normal bowel sounds, soft, nontender, no hepatosplenomegaly Musculoskeletal: no cyanosis or clubbing, extremities motor strength 5/5 No spinal tenderness, no joint swelling or erythema Skin: no rashes, warm and dry + wound (Pacemaker pocket with erythema drainage) Neurologic: moves all extremities and awake; no focal motor deficits Motor/Sensory: no sensory deficit Psychiatric: A+Ox3, euthymic affect Lymphatic: no cervical or axillary lymphadenopathy no inguinal lymphadenopathy Results & Data Vital Signs (Past 12 Hours) Vital Signs Temp Pulse Resp BP Pulse Ox 09/01/18 10:50 37.0 C 96 H 22 150/84 H 96 09/01/18 07:14 37.3 C 95 H 18 145/82 H 95 09/01/18 03:11 36.9 C 93 H 18 149/80 H 100 Laboratory Results Short CBC 09/01/18 Range/Units 08:18 WBC 12.17 H (4.8-10.8) K/uL Hgb 10.1 L (12.0-16.0) g/dL Hct 30.4 L (37-47) % Plt Count 137 (130-400) K/uL BMP 09/01/18 08:18 Sodium 137 Potassium 3.7 Chloride 102 Carbon Dioxide 29 BUN 14 Creatinine 0.76 Glucose 156 H Calcium 8.4 L Liver Function 09/01/18 Range/Units 08:18 Total Bilirubin 0.4 (0.2-1) mg/dl AST 19 (15-37) U/L ALT 19 (12-78) U/L Alkaline Phosphatase 46 (45-117) U/L Albumin 2.7 L (3.4-5.0) gm/dl Diagnostic Findings Microbiology 08/31/18 Unknown Chest Gram Stain - Final 08/31/18 Unknown Chest Wound Culture - Preliminary Gram negative bacilli Staphylococcus aureus 08/30/18 23:59 Blood Aerobic Blood Culture - Preliminary Staphylococcus aureus 08/30/18 23:59 Blood Anaerobic Blood Culture - Preliminary Staphylococcus aureus 08/30/18 23:55 Blood Aerobic Blood Culture - Preliminary Staphylococcus aureus 08/30/18 23:55 Blood Anaerobic Blood Culture - Preliminary Staphylococcus aureus
[2018-09-01] MEDS ORDERED: ICU PROTOCOL FOR HYPERGLYCEMIA PRN (15:16)
[2018-09-01] MEDS ORDERED: FLUTICASONE/SALMETEROL 250/50 (ADVAIR) 14 PUFF/1 INHALER INH PRN (17:28)
[2018-09-01] MEDS ORDERED: IPRATROPIUM BROMIDE NEB SOLN 0.02% 2.5 ML VIAL NEB PRN (17:28)
[2018-09-01] MEDS ORDERED: ALBUTEROL HFA 8 GM INHALER INH PRN (17:28)
--- NOTE | 2018-09-01 17:42 | Post Anesthesia Assessment ---
Date of Service September 01, 2018 Post Sedation Assessment Vital Signs Temp Pulse Pulse Resp BP Pulse Ox 09/01/18 10:50 37.0 C 96 H 22 150/84 H 96 09/01/18 07:14 37.3 C 95 H 18 145/82 H 95 09/01/18 03:11 36.9 C 93 H 18 149/80 H 100 08/31/18 23:41 88 08/31/18 23:22 37.0 C 85 17 127/69 100 08/31/18 19:31 37.2 C 94 H 18 134/72 98 Recovery Score Activity: Moves 4 extremities Respiration: Deep Breath/Cough Circulation: +/-20% PreAnes Value Consciousness: Fully Awake Oxygen Saturation: > 92% On Room Air Discharge Sedation Level of Care: Fast Track Phase II Post Sedation Plan On clinical assessment, the patient appears to have tolerated the sedation without complications. Patient is recovering as anticipated. Patient will continue to be monitored by nursing and may be discharged when sedation discharge criteria are met per below protocol. Upon Completions of procedure and additional 15 minutes continue every 5 minute vital signs and the P.A.R. score; then discharge to a Phase I or Fast Track to Phase II per the following guidelines: * Discharge Patient to appropriate Phase II area if PAR is 8 or greater or return to pre- procedure baseline. The post - procedure orders will be as directed. * If PAR score is less than 8 or not return to pre-procedure baseline then patient will follow Phase I monitoring till PAR is reached for Phase II. The Phase I may be done in procedure room or may call to secure a Phase I area. * If naloxone or flumazenil are used for reversal, hold in Phase I for continued monitoring from when last reversal dose was given for a minimum of 60 minutes or longer pending the nurse and/or physician discretion of patient condition before discharge to Phase II. Please call the Sedation Physician to re-evaluate and complete post-note for discharge to Phase II area. Do NOT discharge from procedure sedation or Phase 1 until post- sedation evaluation note is complete by procedure /sedation MD Sedation Discharge Instructions to be given to the patient at discharge to home.
--- NOTE | 2018-09-01 17:42 | Operative Report ---
Post Operative Report Pre & Post Diagnosis ppm pocket infection and bactermia Operation Date: 08/31/18 10:50 <No data on this case meets the specified criteria> Operation Date: 09/01/18 14:00 <No data on this case meets the specified criteria> Procedure Operation Date: 08/31/18 10:50 Actual Procedures p Transesophageal Echo - Aries Walker DO Operation Date: 09/01/18 14:00 Actual Procedures p Pacer Removal - Feli Baird DO s Lead, Extraction Dual Pacing - Feli Baird DO Surgeon Feli Baird DO [employer] Kojo Koehler, SAVANNA Estimated Blood Loss 0 Findings Consistent with Post-Op Diagnosis Specimens none Description of Procedure see official report I attest to the content of the Intraoperative Record and any orders documented therein. Any exceptions are noted below.
[2018-09-01] MEDS ORDERED: Nursing to Pharmacy Communication ONE (18:41)
[2018-09-01] MEDS: ARTIFICIAL TEARS OP SCH (20:11)
--- NOTE | 2018-09-01 22:01 | Hospitalist Progress Note ---
Date of Service September 01, 2018 Assessment & Plan (1) Sepsis: Secondary to pacemaker site infection, bacteremia hx SSS sp recent PPM Immunocompromised patient Hx Sjogren's syndrome on chronic steroid Rx Post removal of pacemaker Wound culture: Positive for Pseudomonas and MSSA Blood cultures: Positive for MSSA Now on cefepime IV Afebrile, clinically improving ID on board Follow-up final wound and blood culture reports ID consulted Continue Zosyn IV Hydrocortisone stress dose ordered in light of patient's chronic prednisone use ORAL performed Plan for pacemaker exchange Hypertension, stable DM2 on oral meds, well controlled as of recent outpatient hemoglobin A1c of 7 last July 2018 ISS BG goal 1 40-1 80, may need basal insulin to attain goal DVT prophylaxis. Lovenox subcu Full code Patient's daughter requesting updates from providers. Subjective Follow-up for pacemaker site infection, bacteremia Seen sitting up in bed, comfortable, in good spirits States she feels better today compared to admission Has some mild pain on the pacemaker site Denies shortness of breath cough, fevers or chills No other symptomsw Review of Systems Review of Systems: All systems reviewed & are unremarkable except as noted in HPI & below Physical Exam Physical Exam: General- oriented x 3, not in distress, speaks in sentences with no effort or accessory muscle use Eyes- anicteric Neck- no JVD Lungs-mild crackles bilaterally, no wheezing Heart- normal rate, regular rhythm; no murmurs Pacemaker incision site-dressing in place, no bleeding or discharge no surrounding erythema or tenderness around the dressing site Abdomen- normal bowel sounds, nondistended, soft, nontender Extremities- no pretibial edema, no calf tenderness Neuro- alert, oriented x 3; no gross focal neurologic deficits Skin- warm & dry Results & Data Vital Signs (Past 12 Hours) Vital Signs Temp Pulse Pulse Resp BP BP Pulse Ox 09/01/18 20:00 36.6 C 52 L 20 143/80 H 99 09/01/18 18:31 53 L 28 H 97 09/01/18 18:30 54 L 32 H 147/63 H 97 09/01/18 18:15 51 L 22 120/55 L 97 09/01/18 18:01 53 L 24 94 09/01/18 18:00 52 L 21 115/59 L 96 09/01/18 17:46 53 L 24 96 09/01/18 17:45 53 L 25 H 123/54 L 95 09/01/18 17:31 54 L 29 H 96 09/01/18 17:30 53 L 28 H 121/56 L 96 09/01/18 17:16 55 L 20 96 09/01/18 17:15 55 L 22 129/66 96 09/01/18 17:01 56 L 25 H 135/74 96 09/01/18 17:00 55 L 31 H 97 09/01/18 16:46 56 L 22 103/95 97 09/01/18 16:45 55 L 28 H 97 09/01/18 16:31 54 L 17 97 09/01/18 16:30 53 L 23 121/63 99 09/01/18 16:16 52 L 26 H 98 09/01/18 16:15 53 L 26 H 125/60 98 09/01/18 16:01 51 L 17 96 09/01/18 16:00 51 L 27 H 114/55 L 97 09/01/18 15:46 52 L 25 H 98 09/01/18 15:45 52 L 30 H 122/58 L 98 09/01/18 15:31 50 L 19 97 09/01/18 15:30 51 L 25 H 123/56 L 96 09/01/18 15:16 50 L 21 97 09/01/18 15:15 50 L 22 113/56 L 96 09/01/18 15:01 51 L 24 96 09/01/18 15:00 51 L 25 H 121/50 L 96 09/01/18 14:46 52 L 24 95 09/01/18 14:45 52 L 25 H 128/56 L 96 09/01/18 14:37 51 L 25 H 112/64 95 09/01/18 14:32 53 L 18 09/01/18 12:30 106 H 09/01/18 12:15 94 H 09/01/18 12:00 97 H 09/01/18 11:45 92 H 09/01/18 11:30 93 H 09/01/18 11:15 99 H 09/01/18 11:00 93 H 09/01/18 10:50 37.0 C 96 H 22 150/84 H 96 09/01/18 10:45 96 H 09/01/18 10:30 93 H 09/01/18 10:15 91 H Pulse Ox 09/01/18 20:00 99 09/01/18 18:31 09/01/18 18:30 09/01/18 18:15 09/01/18 18:01 09/01/18 18:00 09/01/18 17:46 09/01/18 17:45 09/01/18 17:31 09/01/18 17:30 09/01/18 17:16 09/01/18 17:15 09/01/18 17:01 09/01/18 17:00 09/01/18 16:46 09/01/18 16:45 09/01/18 16:31 09/01/18 16:30 09/01/18 16:16 09/01/18 16:15 09/01/18 16:01 09/01/18 16:00 09/01/18 15:46 09/01/18 15:45 09/01/18 15:31 09/01/18 15:30 09/01/18 15:16 09/01/18 15:15 09/01/18 15:01 09/01/18 15:00 09/01/18 14:46 09/01/18 14:45 09/01/18 14:37 09/01/18 14:32 09/01/18 12:30 09/01/18 12:15 09/01/18 12:00 09/01/18 11:45 09/01/18 11:30 09/01/18 11:15 09/01/18 11:00 09/01/18 10:50 09/01/18 10:45 09/01/18 10:30 09/01/18 10:15 Laboratory Results Laboratory Results - last 24 hr 09/01/18 09/01/18 09/01/18 17:15 20:15 22:00 WBC RBC Hgb Hct MCV MCH MCHC RDW Std Deviation RDW Coeff of Gabriel Plt Count MPV Immature Gran % (Auto) Neut % (Auto) Lymph % (Auto) [place] % (Auto) Eos % (Auto) Baso % (Auto) Immature Gran # (Auto) Neut # (Auto) Lymph # (Auto) [place] # (Auto) Eos # (Auto) Baso # (Auto) Sodium Potassium Chloride Carbon Dioxide Anion Gap BUN Creatinine Est Cr Clr Drug Dosing Est GFR ( Amer) Est GFR (Non-Af Amer) BUN/Creatinine Ratio Glucose POC Glucose 238 H 164 H Estimat Average Glucose Hemoglobin A1c Calcium Phosphorus Magnesium Nasal Screen MRSA (PCR) Negative 09/02/18 09/02/18 09/02/18 04:32 04:32 06:11 WBC 11.43 H RBC 3.04 L Hgb 9.9 L Hct 29.9 L MCV 98.4 MCH 32.6 MCHC 33.1 RDW Std Deviation 48.2 H RDW Coeff of Gabriel 13.4 Plt Count 152 MPV 9.6 Immature Gran % (Auto) 0.3 Neut % (Auto) 91.5 Lymph % (Auto) 4.1 [place] % (Auto) 4.0 Eos % (Auto) 0.0 Baso % (Auto) 0.1 Immature Gran # (Auto) 0.03 H Neut # (Auto) 10.46 H Lymph # (Auto) 0.47 L [place] # (Auto) 0.46 Eos # (Auto) 0.00 Baso # (Auto) 0.01 Sodium 136 Potassium 3.8 Chloride 101 Carbon Dioxide 29 Anion Gap 6.0 BUN 16 Creatinine 0.73 Est Cr Clr Drug Dosing 61.4 Est GFR ( Amer) 89.5 Est GFR (Non-Af Amer) 77.2 BUN/Creatinine Ratio 21.6 H Glucose 166 H POC Glucose 175 H Estimat Average Glucose Hemoglobin A1c Calcium 8.1 L Phosphorus 2.8 Magnesium 2.4 Nasal Screen MRSA (PCR) 09/02/18 09/02/18 09/02/18 07:29 08:08 08:08 WBC RBC Hgb Hct MCV MCH MCHC RDW Std Deviation RDW Coeff of Gabriel Plt Count MPV Immature Gran % (Auto) Neut % (Auto) Lymph % (Auto) [place] % (Auto) Eos % (Auto) Baso % (Auto) Immature Gran # (Auto) Neut # (Auto) Lymph # (Auto) [place] # (Auto) Eos # (Auto) Baso # (Auto) Sodium 133 L Potassium 3.6 Chloride 100 Carbon Dioxide 25 Anion Gap 8.0 BUN 16 Creatinine 0.91 Est Cr Clr Drug Dosing 50.5 Est GFR ( Amer) 68.6 Est GFR (Non-Af Amer) 59.2 BUN/Creatinine Ratio 17.0 Glucose 225 H POC Glucose 159 H Estimat Average Glucose 157 Hemoglobin A1c 7.1 H Calcium 8.4 L Phosphorus Magnesium Nasal Screen MRSA (PCR) 09/02/18 09/02/18 09/02/18 11:33 13:20 14:16 WBC RBC Hgb Hct MCV MCH MCHC RDW Std Deviation RDW Coeff of Gabriel Plt Count MPV Immature Gran % (Auto) Neut % (Auto) Lymph % (Auto) [place] % (Auto) Eos % (Auto) Baso % (Auto) Immature Gran # (Auto) Neut # (Auto) Lymph # (Auto) [place] # (Auto) Eos # (Auto) Baso # (Auto) Sodium Potassium Chloride Carbon Dioxide Anion Gap BUN Creatinine Est Cr Clr Drug Dosing Est GFR ( Amer) Est GFR (Non-Af Amer) BUN/Creatinine Ratio Glucose POC Glucose 215 H 185 H 142 H Estimat Average Glucose Hemoglobin A1c Calcium Phosphorus Magnesium Nasal Screen MRSA (PCR) 09/02/18 09/02/18 09/02/18 15:12 15:48 16:20 WBC RBC Hgb Hct MCV MCH MCHC RDW Std Deviation RDW Coeff of Gabriel Plt Count MPV Immature Gran % (Auto) Neut % (Auto) Lymph % (Auto) [place] % (Auto) Eos % (Auto) Baso % (Auto) Immature Gran # (Auto) Neut # (Auto) Lymph # (Auto) [place] # (Auto) Eos # (Auto) Baso # (Auto) Sodium Potassium Chloride Carbon Dioxide Anion Gap BUN Creatinine Est Cr Clr Drug Dosing Est GFR ( Amer) Est GFR (Non-Af Amer) BUN/Creatinine Ratio Glucose POC Glucose 106 H 95 108 H Estimat Average Glucose Hemoglobin A1c Calcium Phosphorus Magnesium Nasal Screen MRSA (PCR)
--- NOTE | 2018-09-02 01:00 | Operative Report ---
DATE OF OPERATION: 09/01/2018 PREOPERATIVE DIAGNOSES: Infected pacemaker and bacteremia. POSTOPERATIVE DIAGNOSES: Infected pacemaker and bacteremia. PROCEDURE: Dual chamber rate responsive pacemaker explanted under fluoroscopic guidance. SURGEON: Feli Baird DO CONTRACT IMPLEMENTATION ANALYST: None. ANESTHESIA: Monitored conscious sedation administered under my supervision by Sandra Aguilar. Start time 1313, end time 1403. Total of 5 mg of Versed and 100 mcg of fentanyl. INTRAVENOUS FLUIDS: 50 mL. URINE OUTPUT: Not applicable. SPECIMENS: None. FINDINGS: See below. DRAINS: None. BLOOD LOSS: 10 mL. 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 She urgently went under a pacemaker on 08/18/2018 secondary to symptomatic 2:1 heart block on 08/18/2018 without any complications. Unfortunately, she was admitted on 08/31/2018 with bacteremia and a pacemaker pocket infection. Of note, a week or two before the pacemaker was implanted, she was on extremely high dose steroids and had a temporal artery biopsy. This may have played a role in some of this infection. Due to the infection and bacteremia, she was recommended a pacemaker explant. CONSENT: Consent was obtained prior to the patient going into the electrophysiology lab. The patient was informed of the risks, benefits and alternative procedure. Risks include but not limited to sudden cardiac , cardiac arrhythmias, cerebrovascular accident, myocardial infarction, injury to the blood vessels, chamber of the heart, bleeding and infection. The patient understood these risks and agrees to procedure as planned. Informed consent was obtained. DESCRIPTION OF THE PROCEDURE: The patient was brought in to the electrophysiology lab in fasting state. The patient was connected to continuous awake overnight monitor. Timeout was performed to ensure the patient's identity and procedure correctly. She was prepped and draped over the left infraclavicular space in normal surgical standard fashion. Monitored conscious sedation was given throughout the procedure. A 10 mL of 1% lidocaine were given over the prior surgical incision. Then, the incision was opened with Melonie. Sutures were removed. Pus was coming out of it as well as some dried up blood. The device was removed from the pocket. The device was then disconnected from the leads. The suture sleeves were then disrupted and then a stylet was placed on each lead and the screws were retracted under fluoroscopy and the lead with gentle traction was pulled and came out without any problems. Blood pressure remained stable throughout. I debrided a little bit more the pocket and then I flushed with bacitracin saline wash and I packed it with iodoform and then did 4 mattress interrupted stitches for secondary intention healing with Ethicon suture 2-0. EQUIPMENT: The explanted generator is model #W1DR01, serial #[id number]. The explanted right atrial lead 5076-52, serial #[id number]. The explanted right ventricular lead is 5076-58, serial #[id number]. PLAN: Monitor in the Intensive Care Unit. Her underlying rhythm is sinus bradycardia and I think she will be fine. So, that is why we did not do any TVP. We will continue to give I.V. antibiotics and repeat blood cultures. We will change the packing and dressing daily or as needed if it becomes saturated and we will rediscuss about reimplant on the right side. The earliest will be next week when all the blood cultures are negative. I attest to the content of the Intraoperative Record and any orders documented therein. Any exception s are noted below.
[2018-09-02] MEDS: PIPERACILLIN/TAZOBACTAM 3.375 GM in DEXTROSE 5% 100 ML IV SCH (04:39)
[2018-09-02 05:06] LABS: Basophils # (auto) 0.01 K/uL (0-0.2); Basophils % (auto) 0.1 %; Hematocrit (blood only) 29.9 % (37-47); Hemoglobin 9.9 g/dL (12.0-16.0); Immature Granulocytes # (auto) 0.03 K/uL (0.00-0.02); Immature Granulocytes % (auto) 0.3 %; Lymphocytes # (auto) 0.47 K/uL (1.2-3.4); Lymphocytes % (auto) 4.1 %; Mean Corpuscular Hgb Conc 33.1 g/dL (32-36); Mean Corpuscular Volume 98.4 fL (80-100); Mean Platelet Volume 9.6 fL (7.4-10.4); Monocytes # (auto) 0.46 K/uL (0.11-0.59); Neutrophils # (auto) 10.46 K/uL (1.4-6.5); Neutrophils % (auto) 91.5 %; Platelet Count 152 K/uL (130-400); RDW Coefficient of Variation 13.4 % (11.5-14.5); RDW Standard Deviation 48.2 fL (36.4-46.3); Red Blood Count 3.04 M/uL (4.2-5.4); White Blood Count 11.43 K/uL (4.8-10.8)
[2018-09-02 05:35] LABS: BUN Creatinine Ratio 21.6 (10-20); Calcium 8.1 mg/dl (8.5-10.1); Creatinine Clr Calc Pharmacy 61.4 ml/min; Est GFR (African American) 89.5; Est GFR (Non-African American) 77.2; Magnesium 2.4 mg/dl (1.8-2.4); Phosphorus 2.8 mg/dl (2.5-4.9); Potassium 3.8 mmol/L (3.5-5.1)
[2018-09-02] MEDS: LEVOTHYROXINE SODIUM 50 MCG TABLET PO SCH (06:18)
--- NOTE | 2018-09-02 07:05 | Critical Care Progress Note ---
Date of Service September 02, 2018 Assessment & Plan (1) Infection of pacemaker pocket: Reason critically ill: Pt is an 83yo female currently bradycardic with a Hx of second degree heartblock and tachy-cierra syndrome in the setting of a recently removed infected pacemaker on 09/01. Stable for downgrade. 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 -currently bradycardic, in sinus rhythm with 2:1 block -will continue to monitor with plan for emergent pacing with pads or temp pacemaker placement -Echo 08/31 with no evidence of infective vegetations on valves or pacemaker leads -CT scan 08/31- shows evidence of CHF, trace pleural effusions. Crackles heard on exam, no lower extremity swelling. Pt currently w/o SOB, on baseline 2L O2. Can consider low dose lasix should oxygen requirement increase. -EKG 09/01--with sinus rhythm and 2:1 block, LVH and qtc of 446 -continue home amlodipine for HTN, hold metoprolol. -continue home crestor for HLD -appreciate cards consult RESPIRATORY -Pt with Hx of sjogrens, interstitial lung disease -On 2L of oxygen at home, currently on same. At baseline. -chronically on prednisone 10mg, continue IV hydrocortisone stress dosing -continue home atrovent, albuterol and dulera (advair since nonformulary) as needed GI -diet: clear liquids, advance as tolerated. Diabetic diet. -continue home docusate -consider adding additional miralax given pt's Hx of not having a BM in a few days, plus use of PRN opiods. -Protonix daily ENDO -Pt with Hx of hypothyroidism and DMII -hgA1c 7.8 from 2018; will repeat hgA1c -pt with what appears to be poorly controlled DM based on sugars; will need tight insulin control -continue synthroid for hypothyroidism -hold home metformin; continue ICU protocol for hyperglycemia RENAL//ELECTROLYTES -No concerns currently -Pt with documented Hx of CKD stage 3, however Cr function within normal limits -will continue to monitor and replace electrolytes as needed HEME -Currently anemic, likely post procedural -will continue to monitor ID -Pt with documented MSSA and pseudomonas infection of pacemaker. -Likely related to diabetes, and poor glucose control -Blood cultures positive for MSSA; will get repeat cultures 09/02 -Wound culture with both staph and pseudomonas -currently afebrile with downtrending elevated WBC -Will transition from Zosyn to Cefepime 09/02 DVT prophylaxis: Lovenox 30mg PIVs-intact Code Status: Full Dispo: Stable for downgrade Supervising Physician Co-Signing Physician Notes Dr. Juárez was resident physician during care of patient. I separately evaluated patient for eid portions of the history and the exam. I was present during the critical portion of medical decision making, and I discussed the case with the resident. I generally agree with the findings and plan. Patient has remained hemodynamically stable. We are converting from Zosyn to cefepime for less sodium requirement and ease of dosing administration. Pharmacy glycemic consult, repeating A1c I suspect poor glycemic control has likely contributed to the pocket infection, repeating blood cultures today Subjective Pt was resting comfortably in bed. States that she had an episode of chest tightness and SOB about 4AM, that seemingly resolved when she got up to use the bathroom. Currently denies chest pain, SOB, N/V, abdominal pain, diarrhea or constipation. Review of Systems Review of Systems: All systems reviewed & are unremarkable except as noted in HPI & below Physical Exam Physical Exam: General: Alert, oriented. No acute distress. HEENT: NC/AT, Nasal cannula in nares Chest: Nontender to palpation. CV: RRR, Normal s1, s2. Resp: Breath sounds with crackles noted at the bases of the lungs bilaterally. Abdomen: Soft, nontender, No guarding. Extremities: No edema in lower extremities bilaterally. Results & Data Vital Signs (Past 12 Hours) Vital Signs Temp Pulse Resp BP Pulse Ox Pulse Ox 09/02/18 06:00 51 L 18 158/71 H 99 09/02/18 04:00 36.8 C 51 L 22 148/68 H 99 09/02/18 02:00 50 L 22 128/62 99 09/02/18 00:00 36.6 C 54 L 18 127/59 L 99 09/01/18 22:00 52 L 20 157/87 H 98 09/01/18 20:00 36.6 C 52 L 20 143/80 H 99 99 Laboratory Results Laboratory Results - last 24 hr 09/01/18 09/01/18 09/01/18 08:18 08:18 11:35 WBC 12.17 H RBC 3.13 L Hgb 10.1 L Hct 30.4 L MCV 97.1 MCH 32.3 MCHC 33.2 RDW Std Deviation 47.5 H RDW Coeff of Gabriel 13.4 Plt Count 137 MPV 8.8 Immature Gran % (Auto) 0.2 Neut % (Auto) 94.2 Lymph % (Auto) 3.0 [place] % (Auto) 2.5 Eos % (Auto) 0.0 Baso % (Auto) 0.1 Immature Gran # (Auto) 0.02 Neut # (Auto) 11.47 H Lymph # (Auto) 0.36 L [place] # (Auto) 0.31 Eos # (Auto) 0.00 Baso # (Auto) 0.01 Sodium 137 Potassium 3.7 Chloride 102 Carbon Dioxide 29 Anion Gap 6.0 BUN 14 Creatinine 0.76 Est Cr Clr Drug Dosing 59.0 Est GFR ( Amer) 85.3 Est GFR (Non-Af Amer) 73.6 BUN/Creatinine Ratio 17.9 Glucose 156 H POC Glucose 142 H Calcium 8.4 L Phosphorus Magnesium Total Bilirubin 0.4 AST 19 ALT 19 Alkaline Phosphatase 46 Total Protein 6.0 L Albumin 2.7 L Globulin 3.3 Albumin/Globulin Ratio 0.8 L Nasal Screen MRSA (PCR) 09/01/18 09/01/18 09/01/18 17:15 20:15 22:00 WBC RBC Hgb Hct MCV MCH MCHC RDW Std Deviation RDW Coeff of Gabriel Plt Count MPV Immature Gran % (Auto) Neut % (Auto) Lymph % (Auto) [place] % (Auto) Eos % (Auto) Baso % (Auto) Immature Gran # (Auto) Neut # (Auto) Lymph # (Auto) [place] # (Auto) Eos # (Auto) Baso # (Auto) Sodium Potassium Chloride Carbon Dioxide Anion Gap BUN Creatinine Est Cr Clr Drug Dosing Est GFR ( Amer) Est GFR (Non-Af Amer) BUN/Creatinine Ratio Glucose POC Glucose 238 H 164 H Calcium Phosphorus Magnesium Total Bilirubin AST ALT Alkaline Phosphatase Total Protein Albumin Globulin Albumin/Globulin Ratio Nasal Screen MRSA (PCR) Negative 09/02/18 09/02/18 09/02/18 04:32 04:32 06:11 WBC 11.43 H RBC 3.04 L Hgb 9.9 L Hct 29.9 L MCV 98.4 MCH 32.6 MCHC 33.1 RDW Std Deviation 48.2 H RDW Coeff of Gabriel 13.4 Plt Count 152 MPV 9.6 Immature Gran % (Auto) 0.3 Neut % (Auto) 91.5 Lymph % (Auto) 4.1 [place] % (Auto) 4.0 Eos % (Auto) 0.0 Baso % (Auto) 0.1 Immature Gran # (Auto) 0.03 H Neut # (Auto) 10.46 H Lymph # (Auto) 0.47 L [place] # (Auto) 0.46 Eos # (Auto) 0.00 Baso # (Auto) 0.01 Sodium 136 Potassium 3.8 Chloride 101 Carbon Dioxide 29 Anion Gap 6.0 BUN 16 Creatinine 0.73 Est Cr Clr Drug Dosing 61.4 Est GFR ( Amer) 89.5 Est GFR (Non-Af Amer) 77.2 BUN/Creatinine Ratio 21.6 H Glucose 166 H POC Glucose 175 H Calcium 8.1 L Phosphorus 2.8 Magnesium 2.4 Total Bilirubin AST ALT Alkaline Phosphatase Total Protein Albumin Globulin Albumin/Globulin Ratio Nasal Screen MRSA (PCR) 09/02/18 07:29 WBC RBC Hgb Hct MCV MCH MCHC RDW Std Deviation RDW Coeff of Gabriel Plt Count MPV Immature Gran % (Auto) Neut % (Auto) Lymph % (Auto) [place] % (Auto) Eos % (Auto) Baso % (Auto) Immature Gran # (Auto) Neut # (Auto) Lymph # (Auto) [place] # (Auto) Eos # (Auto) Baso # (Auto) Sodium Potassium Chloride Carbon Dioxide Anion Gap BUN Creatinine Est Cr Clr Drug Dosing Est GFR ( Amer) Est GFR (Non-Af Amer) BUN/Creatinine Ratio Glucose POC Glucose 159 H Calcium Phosphorus Magnesium Total Bilirubin AST ALT Alkaline Phosphatase Total Protein Albumin Globulin Albumin/Globulin Ratio Nasal Screen MRSA (PCR) Medications Administered Home Medications Artificial Tears (PF) 1 drp OPHTHALMIC (EYE) HS 07/30/18 [History Confirmed 08/30/18] Dulera 2 puff INHALATION Q12H 07/30/18 [History Confirmed 08/30/18] albuterol sulfate 2 puff INHALATION Q6H PRN 07/30/18 [History Confirmed 08/30/18] amlodipine 5 mg PO DAILY 07/30/18 [History Confirmed 08/30/18] levothyroxine 50 mcg PO DAILY 07/30/18 [History Confirmed 08/30/18] metformin 500 mg PO BID 07/30/18 [History Confirmed 08/30/18] omeprazole 20 mg PO DAILY 07/30/18 [History Confirmed 08/30/18] rosuvastatin [Crestor] 10 mg PO DAILY 07/30/18 [History Confirmed 08/30/18] triamcinolone acetonide 1 applic TOPICAL BID 07/30/18 [History Confirmed 08/30/18] Ocuvite Eye Plus Multi 2 tab PO DAILY 08/18/18 [History Confirmed 08/30/18] Probiotic 3,000 mmu cells PO DAILY 08/18/18 [History Confirmed 08/30/18] acetaminophen [Acetaminophen Extra Strength] 1,000 mg PO BID PRN 08/18/18 [History Confirmed 08/30/18] calcium polycarbophil [Fiber (calcium polycarbophil)] 1,250 mg PO DAILY 08/18/18 [History Confirmed 08/30/18] docusate sodium 100 mg PO BID PRN 08/18/18 [History Confirmed 08/30/18] erythromycin 1 applic OPHTHALMIC (EYE) QID 08/18/18 [History Confirmed 08/30/18] ipratropium bromide 0.5 mg INHALATION Q4H PRN 08/18/18 [History Confirmed 08/30/18] metoprolol succinate 50 mg PO BID 08/18/18 [History Confirmed 08/30/18] prednisone 10 mg PO DAILY 08/18/18 [History Confirmed 08/30/18] Active Medications Acetaminophen (Tylenol) 650 mg PO Q4H PRN PRN Reason: Pain or Fever Stop: 09/30/18 03:45 Last Admin: 08/31/18 20:14 Dose: 650 mg Documented by: Albuterol (Ventolin Hfa) 2 puffs INH Q6H PRN PRN Reason: Shortness Of Breath Stop: 10/01/18 17:29 Amlodipine Besylate (Norvasc) 5 mg PO DAILY NYDIA Stop: 09/30/18 08:59 Last Admin: 08/31/18 10:00 Dose: 5 mg Documented by: Artificial Tears (Artificial Tears) 1 drops OP HS NYDIA Stop: 09/30/18 20:59 Last Admin: 09/01/18 20:11 Dose: Not Given Documented by: Dextrose (Dextrose 50%) 25 - 50 ml IV UD PRN; Protocol PRN Reason: Hypoglycemia Protocol Stop: 09/30/18 03:45 Docusate Sodium (Colace) 100 mg PO BID PRN PRN Reason: CONSTIPATION Stop: 09/30/18 06:29 Enoxaparin Sodium (Lovenox) 40 mg SQ QAM NYDIA Stop: 10/02/18 08:59 Erythromycin (Erythromycin) 1 appln OP QID [facility] Stop: 09/10/18 08:59 Last Admin: 09/01/18 20:11 Dose: 1 appln Documented by: Glucagon (Glucagen) 1 mg SQ UD PRN; Protocol PRN Reason: Hypoglycemia Protocol Stop: 09/30/18 03:45 Glucose (Glucose 40%) 15 - 30 gm PO UD PRN; Protocol PRN Reason: Hypoglycemia Protocol Stop: 09/30/18 03:45 Glucose (Dex4 Glucose) 4 - 8 tabs PO UD PRN; Protocol PRN Reason: Hypoglycemia Protocol Stop: 09/30/18 03:45 Hydromorphone HCl (Dilaudid) 0.25 mg IV Q3H PRN PRN Reason: Pain Stop: 09/14/18 03:45 Promethazine HCl 12.5 mg/ (Sodium Chloride) 50.5 mls @ 202 mls/hr IV Q6H PRN PRN Reason: Nausea And Vomiting Stop: 09/30/18 00:49 Last Infusion: 08/31/18 08:50 Dose: Infused Documented by: Hydrocortisone Sodium (Succinate 50 mg/ Syringe) 1 mls @ 4 mls/min IV Q8H [facility] Stop: 09/30/18 15:59 Last Admin: 09/01/18 23:17 Dose: 4 mls/min Documented by: Cefepime HCl 2,000 mg/ Syringe 20 mls @ 5 mls/min IV Q12 [facility]; Protocol Stop: 09/16/18 10:59 Insulin Aspart (Novolog Flexpen) 0 units SC ACHS [facility]; Protocol Stop: 10/01/18 20:59 Last Admin: 09/01/18 20:17 Dose: Not Given Documented by: Insulin [facility]argine ([facility]us [facility]ar [facility]) [facility] Protocol Stop: 09/02/18 09:01 Ipratropium [place] (Atrovent 0.02% 0.5mg/2.5ml) 0.5 mg NEB Q4H PRN PRN Reason: sob Stop: 10/01/18 17:29 Levothyroxine Sodium (Synthroid) 50 mcg PO DAILYBB NYDIA Stop: 09/30/18 06:29 Last Admin: 09/02/18 06:18 Dose: 50 mcg Documented by: Miscellaneous (Order Awaiting Action) 1 ea N/A QS NYDIA Stop: 09/30/18 07:59 Last Admin: 09/01/18 23:17 Dose: Not Given Documented by: Miscellaneous (Carbohydrates For Hypoglycemia) 15 - 30 gm PO UD PRN PRN Reason: Hypoglycemia Treatment Stop: 09/30/18 03:45 Miscellaneous (Icu Protocol For Hyperglycemia) 1 ea N/A PRN PRN; Protocol PRN Reason: Hyperglycemia Protocol Stop: 09/03/18 15:15 Miscellaneous Information (Consult Glycemic Management Pharmacy) 1 ea N/A UD PRN PRN Reason: Consult Stop: 10/02/18 07:11 Miscellaneous Information (Cefepime Consult Active) 1 ea N/A UD PRN PRN Reason: Consult Stop: 10/02/18 07:11 Multivitamins/Minerals (Multivitamin W/ Minerals Tab) 1 tab PO DAILY NYDIA; Protocol Stop: 09/30/18 08:59 Last Admin: 09/01/18 09:50 Dose: Not Given Documented by: Oxycodone/Acetaminophen (Percocet 5mg/325mg) 1 - 2 tab PO Q6H PRN PRN Reason: Moderate-Severe Pain Stop: 09/15/18 14:04 Pantoprazole Sodium (Protonix) 40 mg PO DAILY NYDIA; Protocol Stop: 09/30/18 08:59 Last Admin: 09/01/18 09:50 Dose: Not Given Documented by: Rosuvastatin Calcium (Crestor) 10 mg PO DAILY NYDIA Stop: 09/30/18 08:59 Last Admin: 09/01/18 09:50 Dose: Not Given Documented by: Fluticasone/Salmeterol (Advair Diskus 250/50) 1 puffs INH BID PRN PRN Reason: sob Stop: 10/01/18 20:59 Tramadol HCl (Ultram) 25 mg PO Q4H PRN PRN Reason: Pain Stop: 09/30/18 03:45
[2018-09-02] MEDS ORDERED: PHARMACY GLYCEMIC MGMT CONSULT PRN (07:12)
[2018-09-02] MEDS ORDERED: CEFEPIME CONSULT ACTIVE PRN (07:12)
[2018-09-02] MEDS: ROSUVASTATIN CALCIUM 10 MG TAB PO SCH (08:07)
[2018-09-02] MEDS: ERYTHROMYCIN OP OINT 5 MG/GM 3.5 GM TUBE OP SCH ×4 (08:07→20:52)
[2018-09-02] MEDS: ENOXAPARIN INJ 40 MG/0.4 ML SYR SQ SCH (08:08)
[2018-09-02] MEDS: INSULIN GLARGINE SOLOSTAR 100 UNITS/ML 3 ML PEN SC ONE ×2 (08:08→12:42)
[2018-09-02] MEDS: CEROVITE ADV FORMULA TAB PO SCH (08:09)
[2018-09-02] MEDS: PANTOprazole 40 MG TAB PO SCH (08:09)
[2018-09-02] MEDS: INSULIN ASPART 100 UNITS/ML 3 ML PEN SC SCH ×3 (08:10→20:54)
[2018-09-02] MEDS: HYDROCORTISONE SOD 50 MG in SYRINGE 0 ML IV SCH ×2 (08:11→20:52)
[2018-09-02 09:12] LABS: Estimated Average Glucose 157 mg/dl; Hemoglobin A1C 7.1 % (4.5-5.6)
[2018-09-02 09:27] LABS: Calcium 8.4 mg/dl (8.5-10.1); Creatinine Clr Calc Pharmacy 50.5 ml/min; Est GFR (African American) 68.6; Est GFR (Non-African American) 59.2; Potassium 3.6 mmol/L (3.5-5.1)
[2018-09-02] MEDS: CEFEPIME 2,000 MG in SYRINGE 7.5 ML IV SCH ×2 (11:11→20:53)
[2018-09-02] MEDS ORDERED: PIPERACILLIN/TAZOBACTAM 4.5 GM in DEXTROSE 5% 100 ML IV SCH (12:00)
[2018-09-02] MEDS ORDERED: INSULIN REGULAR 250 UNITS in SODIUM CHLORIDE 0.9% 247.5 ML IV SCH (12:45)
[2018-09-02] MEDS ORDERED: NovoLIN-R BOLUS FROM BAG IV ONE (12:45)
--- NOTE | 2018-09-02 13:06 | Pharmacy Report ---
Glycemic Control Consultation - Date of Service September 02, 2018 - Scope Scope: Glycemic Pharmacist consulted for glycemic control and to write orders per [facility] inpatient glycemic control protocol - Objective Weight: 66 kg Accuchecks BSG (last 24hrs): 09/01/18 09/01/18 09/02/18 17:15 20:15 04:32 Glucose 166 H POC Glucose 238 H 164 H 09/02/18 09/02/18 09/02/18 06:11 07:29 08:08 Glucose 225 H POC Glucose 175 H 159 H 09/02/18 11:33 Glucose POC Glucose 215 H Laboratory Data (last 24hrs): 09/02/18 09/02/18 04:32 08:08 Potassium 3.8 3.6 Carbon Dioxide 29 25 Anion Gap 6.0 8.0 Creatinine 0.73 0.91 Est Cr Clr Drug Dosing 61.4 50.5 HbA1c: Hemoglobin A1c 7.1 % (4.5-5.6) H 09/02/18 08:08 - Recent Pertinent Medications Outpatient Anti-diabetic Regimen: * Metformin 500 mg po BID * Note: also on prednisone 10 mg po daily * A1c = 7.1% on 09/02/18 The patient is currently receiving: * Basal insulin: None * Correctional Insulin: Novolog Correction per scale ACHS Goal Range: Low 140 mg/dL - High 180 mg/dL Correction Factor: 25 mg/dL/unit * Prandial insulin: Per carb ratio of 1 unit per 15 grams CHO consumed * Oral Agents: On hold Risk Factors for Insulin Resistance: * Steroids: hydrocortisone 50 mg IV q8h tapered to q12h starting 09/02 * Infection: MSSA bacteremia 2nd infected pacemaker with MSSA and Pseudomonas isolated from chest culture. On cefepime. * Recent Surgery: POD 1 s/p removal of infected pacemaker * Diet: T2DM/clear liquid - Assessment & Plan Assessment & Plan: ASSESSMENT: * 83 yo F with T2DM admitted with bacteremia 2nd infected pacemaker. Poor glycemic control while inpatient likely 2nd surgical stress, stress-dose stero ids (for home prednisone 10 mg po daily), and significant infection * Patient received 3 units of insulin on 09/01 and BSG ranged 142-238 mg/dL (with one BSG >180 mg/dL) * Will initiate Lantus 0.3 units/kg for BSG >140 mg/dL this AM. Tightened CHO ratio as well. * Insulin drip initiated at lunch for BSG > 180 mg/dL * Tighter glycemic control is warranted in a post-surgical patient. Will therefore select a lower goal range for the insulin drip than usual 140-180 mg/dL. * May be able to discontinue insulin drip later today, depending on insulin requirements and BSG's PLAN FOR INPATIENT GLYCEMIC CONTROL: * Starting IV insulin infusion per severe stress protocol * Goal Range 110 - 160 mg/dl * In the critical care setting, continuous IV insulin infusion has been shown to be the best method for achieving glycemic targets. * Holding outpatient oral diabetes medications * Basal insulin: Lantus 20 units SQ x1 now. Additional Lantus this PM based on insulin drip rate * Insulin drip less than 1 unit/hr - call pharmacy for to discuss transition * Insulin drip 1-2 units/hr - Lantus 6 units * Insulin drip greater than 2 units/hr - Lantus 12 units * Bolus insulin * NovoLog per scale ACHS * Carb ratio per insulin drip calculator, but a maximum of 1 unit per 12 grams CHO consumed (aka if calculator notes to use 15 g CHO/unit, should use 12 g CHO/unit instead) * Please note that the plan above was derived based on current level of insulin resistance and hospital stress. These recommendations are appropriate for inpatient admission only. Plan of care upon discharge will need to be reassessed to avoid potential outpatient hypo/hyperglycemia. Thank you.
--- NOTE | 2018-09-02 13:21 | Cardiology Progress Note ---
Date of Service September 02, 2018 Assessment & Plan (1) Bacteremia due to methicillin susceptible Staphylococcus aureus (MSSA): (2) Mobitz type 2 second degree atrioventricular block: (3) Infection of pacemaker pocket: (4) Interstitial lung disease: s/p device extraction on 09/01/18. Repeat blood cultures drawn today. Zosyn transitioned to Ancef (day 3 of total antibiotic treatment). OK to resume amlodipine. metoprolol discontinued. Has stable rate of 50 bpm with adequate (high BP) without temporary pacemaker support. Has crackles, likely due to ILD , do not think pt is volume overloaded. Agree with lovenox for DVT prophylaxis. Subjective CC: follow up fever Subjective: Pt feeing well. No fever since 08/31/18. Telemetry reveals sinus rhythm with 2:1 AV block with rate of 52 bpm. Review of Systems Review of Systems: All systems reviewed & are unremarkable except as noted in HPI & below Physical Exam Physical Exam: Temp Pulse Resp BP Pulse Ox 36.5 C 53 L 20 169/75 H 98 09/02/18 11:47 09/02/18 11:47 09/02/18 11:47 09/02/18 11:47 09/02/18 11:47 Constitutional: WD/WN, vitals as above Respiratory: normal respiratory effort Auscultation: + crackles; no rales and no rhonchi Cardiovascular: RRR, no murmur, no edema Vessels: no JVD Extremities: no edema Gastrointestinal (Abdomen): normal bowel sounds, soft, nontender, no hepatosplenomegaly Neurologic: PERRL, EOMI, accommodation nl, no face palsy, no dysarthria Results & Data Vital Signs (Past 12 Hours) Vital Signs Temp Pulse Pulse Resp BP BP Pulse Ox 09/02/18 11:47 36.5 C 53 L 20 169/75 H 98 09/02/18 10:30 54 L 23 96 09/02/18 10:01 52 L 20 99 09/02/18 10:00 52 L 21 165/70 H 99 09/02/18 09:30 50 L 22 99 09/02/18 09:01 53 L 22 99 09/02/18 09:00 52 L 17 162/67 H 99 09/02/18 08:30 58 L 20 97 09/02/18 08:01 59 L 26 H 96 09/02/18 08:00 59 L 17 153/71 H 96 09/02/18 07:52 36.8 C 52 L 20 161/80 H 98 09/02/18 07:30 51 L 21 97 09/02/18 07:29 52 L 27 H 161/80 H 98 09/02/18 07:01 50 L 25 H 99 09/02/18 07:00 49 L 19 162/67 H 99 09/02/18 06:00 51 L 18 158/71 H 99 09/02/18 04:00 36.8 C 51 L 22 148/68 H 99 09/02/18 02:00 50 L 22 128/62 99
[2018-09-02] MEDS ORDERED: INSULIN ASPART 100 UNITS/ML 3 ML PEN SC SCH (16:30)
--- NOTE | 2018-09-02 17:40 | Hospitalist Progress Note ---
Date of Service September 02, 2018 Assessment & Plan (1) Sepsis: Secondary to pacemaker site infection, bacteremia hx SSS sp recent PPM Immunocompromised patient Hx Sjogren's syndrome on chronic steroid Rx Post removal of pacemaker Wound culture: Positive for Pseudomonas and MSSA Blood cultures: Positive for MSSA Now on cefepime IV Afebrile, clinically improving ID on board Hydrocortisone stress dose ordered in light of patient's chronic prednisone use- we will start to taper down, then transition to prednisone taper until patient's usual prednisone daily dose Hypertension Amlodipine DM2 ISS DVT prophylaxis. Lovenox subcu Full code Subjective Follow-up for pacemaker site infection Seen resting in bed, comfortable, in good spirits States she feels improved today overall Has mild discomfort on the pacemaker incision site Denies shortness of breath, cough, fevers or chills, abdominal pain, nausea vomiting No other symptoms Review of Systems Review of Systems: All systems reviewed & are unremarkable except as noted in HPI & below Physical Exam Physical Exam: General- oriented x 3, not in distress, speaks in sentences with no effort or accessory muscle use Eyes- anicteric Neck- no JVD Lungs--mild rales bilaterally, no wheezing Heart- normal rate, regular rhythm; no murmurs Pacemaker site-dressing in place, no bleeding or discharge noted Abdomen- normal bowel sounds, nondistended, soft, nontender Extremities- no pretibial edema, no calf tenderness Neuro- alert, oriented x 3; no gross focal neurologic deficits Skin- warm & dry Results & Data Vital Signs (Past 12 Hours) Vital Signs Temp Pulse Pulse Resp BP BP Pulse Ox 09/02/18 16:01 53 L 25 H 100 09/02/18 16:00 36.8 C 53 L 15 174/75 H 99 09/02/18 15:30 54 L 27 H 97 09/02/18 15:18 53 L 15 174/80 H 98 09/02/18 15:00 53 L 25 H 09/02/18 14:30 57 L 22 09/02/18 14:01 53 L 25 H 99 09/02/18 14:00 54 L 20 169/82 H 99 09/02/18 13:30 54 L 21 99 09/02/18 13:01 51 L 23 99 09/02/18 13:00 52 L 17 165/77 H 99 09/02/18 12:30 54 L 28 H 98 09/02/18 12:01 55 L 22 99 09/02/18 12:00 54 L 16 153/81 H 98 09/02/18 11:47 36.5 C 53 L 20 169/75 H 98 09/02/18 11:34 54 L 22 169/75 H 98 09/02/18 11:30 57 L 18 96 09/02/18 11:01 54 L 28 H 98 09/02/18 11:00 54 L 21 182/81 H 98 09/02/18 10:30 54 L 23 96 09/02/18 10:01 52 L 20 99 09/02/18 10:00 52 L 21 165/70 H 99 09/02/18 09:30 50 L 22 99 09/02/18 09:01 53 L 22 99 09/02/18 09:00 52 L 17 162/67 H 99 09/02/18 08:30 58 L 20 97 09/02/18 08:01 59 L 26 H 96 09/02/18 08:00 59 L 17 153/71 H 96 09/02/18 07:52 36.8 C 52 L 20 161/80 H 98 09/02/18 07:30 51 L 21 97 09/02/18 07:29 52 L 27 H 161/80 H 98 09/02/18 07:01 50 L 25 H 99 09/02/18 07:00 49 L 19 162/67 H 99 09/02/18 06:00 51 L 18 158/71 H 99 Laboratory Results Laboratory Results - last 24 hr 09/01/18 09/01/18 09/02/18 20:15 22:00 04:32 WBC 11.43 H RBC 3.04 L Hgb 9.9 L Hct 29.9 L MCV 98.4 MCH 32.6 MCHC 33.1 RDW Std Deviation 48.2 H RDW Coeff of Gabriel 13.4 Plt Count 152 MPV 9.6 Immature Gran % (Auto) 0.3 Neut % (Auto) 91.5 Lymph % (Auto) 4.1 Hanson % (Auto) 4.0 Eos % (Auto) 0.0 Baso % (Auto) 0.1 Immature Gran # (Auto) 0.03 H Neut # (Auto) 10.46 H Lymph # (Auto) 0.47 L Hanson # (Auto) 0.46 Eos # (Auto) 0.00 Baso # (Auto) 0.01 Sodium Potassium Chloride Carbon Dioxide Anion Gap BUN Creatinine Est Cr Clr Drug Dosing Est GFR ( Amer) Est GFR (Non-Af Amer) BUN/Creatinine Ratio Glucose POC Glucose 164 H Estimat Average Glucose Hemoglobin A1c Calcium Phosphorus Magnesium Nasal Screen MRSA (PCR) Negative 09/02/18 09/02/18 09/02/18 04:32 06:11 07:29 WBC RBC Hgb Hct MCV MCH MCHC RDW Std Deviation RDW Coeff of Gabriel Plt Count MPV Immature Gran % (Auto) Neut % (Auto) Lymph % (Auto) Hanson % (Auto) Eos % (Auto) Baso % (Auto) Immature Gran # (Auto) Neut # (Auto) Lymph # (Auto) Hanson # (Auto) Eos # (Auto) Baso # (Auto) Sodium 136 Potassium 3.8 Chloride 101 Carbon Dioxide 29 Anion Gap 6.0 BUN 16 Creatinine 0.73 Est Cr Clr Drug Dosing 61.4 Est GFR ( Amer) 89.5 Est GFR (Non-Af Amer) 77.2 BUN/Creatinine Ratio 21.6 H Glucose 166 H POC Glucose 175 H 159 H Estimat Average Glucose Hemoglobin A1c Calcium 8.1 L Phosphorus 2.8 Magnesium 2.4 Nasal Screen MRSA (PCR) 09/02/18 09/02/18 09/02/18 08:08 08:08 11:33 WBC RBC Hgb Hct MCV MCH MCHC RDW Std Deviation RDW Coeff of Gabriel Plt Count MPV Immature Gran % (Auto) Neut % (Auto) Lymph % (Auto) Hanson % (Auto) Eos % (Auto) Baso % (Auto) Immature Gran # (Auto) Neut # (Auto) Lymph # (Auto) Hanson # (Auto) Eos # (Auto) Baso # (Auto) Sodium 133 L Potassium 3.6 Chloride 100 Carbon Dioxide 25 Anion Gap 8.0 BUN 16 Creatinine 0.91 Est Cr Clr Drug Dosing 50.5 Est GFR ( Amer) 68.6 Est GFR (Non-Af Amer) 59.2 BUN/Creatinine Ratio 17.0 Glucose 225 H POC Glucose 215 H Estimat Average Glucose 157 Hemoglobin A1c 7.1 H Calcium 8.4 L Phosphorus Magnesium Nasal Screen MRSA (PCR) 09/02/18 09/02/18 09/02/18 13:20 14:16 15:12 WBC RBC Hgb Hct MCV MCH MCHC RDW Std Deviation RDW Coeff of Gabriel Plt Count MPV Immature Gran % (Auto) Neut % (Auto) Lymph % (Auto) Hanson % (Auto) Eos % (Auto) Baso % (Auto) Immature Gran # (Auto) Neut # (Auto) Lymph # (Auto) Hanson # (Auto) Eos # (Auto) Baso # (Auto) Sodium Potassium Chloride Carbon Dioxide Anion Gap BUN Creatinine Est Cr Clr Drug Dosing Est GFR ( Amer) Est GFR (Non-Af Amer) BUN/Creatinine Ratio Glucose POC Glucose 185 H 142 H 106 H Estimat Average Glucose Hemoglobin A1c Calcium Phosphorus Magnesium Nasal Screen MRSA (PCR) 09/02/18 09/02/18 09/02/18 15:48 16:20 17:18 WBC RBC Hgb Hct MCV MCH MCHC RDW Std Deviation RDW Coeff of Gabriel Plt Count MPV Immature Gran % (Auto) Neut % (Auto) Lymph % (Auto) Hanson % (Auto) Eos % (Auto) Baso % (Auto) Immature Gran # (Auto) Neut # (Auto) Lymph # (Auto) Hanson # (Auto) Eos # (Auto) Baso # (Auto) Sodium Potassium Chloride Carbon Dioxide Anion Gap BUN Creatinine Est Cr Clr Drug Dosing Est GFR ( Amer) Est GFR (Non-Af Amer) BUN/Creatinine Ratio Glucose POC Glucose 95 108 H 179 H Estimat Average Glucose Hemoglobin A1c Calcium Phosphorus Magnesium Nasal Screen MRSA (PCR)
[2018-09-02] MEDS ORDERED: AMLODIPINE BESYLATE 5 MG TAB PO ONE (18:00)
--- NOTE | 2018-09-02 18:09 | Infectious Disease Progress Nt ---
Date of Service September 02, 2018 Assessment & Plan (1) Infection of pacemaker pocket: Patient with infected pacemaker pocket with MSSA bacteremia with staph aureus and Pseudomonas growing in pacemaker pocket. To continue with Zosyn for now, will need 6 weeks of IV antibiotics for bacteremia, but should be able to treat pseudomonal infection with oral ciprofloxacin. Will discuss with all involved. (2) Bacteremia due to methicillin susceptible Staphylococcus aureus (MSSA): (3) Infection due to gram-negative anaerobic organism: Subjective CC: follow up fever Subjective: Pt feeing well. No fever since 08/31/18. Telemetry reveals sinus rhythm with 2:1 AV block with rate of 52 bpm. Physical Exam Constitutional: WD/WN, vitals as above comfortable; no acute distress Eyes: PERRL, conjunctivae normal, anicteric sclerae ENMT: external ear and nose normal, oropharynx normal Neck: trachea midline, no thyromegaly neck nontender Respiratory: normal respiratory effort, lungs clear to auscultation normal percussion; no respiratory distress and does not use accessory muscles Cardiovascular: Rate/Rhythm: regular rate and regular rhythm Heart Sounds: normal S1 and normal S2; no gallop, no murmur and no cardiac rub Vessels: normal peripheral pulses; no JVD Gastrointestinal (Abdomen): normal bowel sounds, soft, nontender, no hepatosplenomegaly Musculoskeletal: no cyanosis or clubbing, extremities motor strength 5/5 Spine: thoracic spine normal to inspection and lumbar spine normal to inspection; no cervical spinal tenderness Skin: no rashes, warm and dry normal turgor and + wound (Pacemaker pocket with erythema drainage); no rashes Neurologic: patellar DTR's 2+ bilat, sensation intact moves all extremities and awake; no focal motor deficits Motor/Sensory: no sensory deficit Psychiatric: A+Ox3, euthymic affect Orientation: cooperative Lymphatic: no cervical or axillary lymphadenopathy no inguinal lymphadenopathy Results & Data Vital Signs (Past 12 Hours) Vital Signs Temp Pulse Pulse Resp BP BP Pulse Ox 09/02/18 16:01 53 L 25 H 100 09/02/18 16:00 36.8 C 53 L 15 174/75 H 99 09/02/18 15:30 54 L 27 H 97 09/02/18 15:18 53 L 15 174/80 H 98 09/02/18 15:00 53 L 25 H 09/02/18 14:30 57 L 22 07 14:01 53 L 25 H 99 09/02/18 14:00 54 L 20 169/82 H 99 09/02/18 13:30 54 L 21 99 09/02/18 13:01 51 L 23 99 09/02/18 13:00 52 L 17 165/77 H 99 09/02/18 12:30 54 L 28 H 98 09/02/18 12:01 55 L 22 99 09/02/18 12:00 54 L 16 153/81 H 98 09/02/18 11:47 36.5 C 53 L 20 169/75 H 98 09/02/18 11:34 54 L 22 169/75 H 98 09/02/18 11:30 57 L 18 96 09/02/18 11:01 54 L 28 H 98 09/02/18 11:00 54 L 21 182/81 H 98 09/02/18 10:30 54 L 23 96 09/02/18 10:01 52 L 20 99 09/02/18 10:00 52 L 21 165/70 H 99 09/02/18 09:30 50 L 22 99 09/02/18 09:01 53 L 22 99 09/02/18 09:00 52 L 17 162/67 H 99 09/02/18 08:30 58 L 20 97 09/02/18 08:01 59 L 26 H 96 09/02/18 08:00 59 L 17 153/71 H 96 09/02/18 07:52 36.8 C 52 L 20 161/80 H 98 09/02/18 07:30 51 L 21 97 09/02/18 07:29 52 L 27 H 161/80 H 98 09/02/18 07:01 50 L 25 H 99 09/02/18 07:00 49 L 19 162/67 H 99
[2018-09-02] MEDS: ARTIFICIAL TEARS OP SCH (20:53)
[2018-09-03] MEDS: INSULIN ASPART 100 UNITS/ML 3 ML PEN SC SCH ×6 (00:09→21:22)
[2018-09-03 05:07] LABS: BUN Creatinine Ratio 16.8 (10-20); Calcium 8.6 mg/dl (8.5-10.1); Creatinine Clr Calc Pharmacy 56.8 ml/min; Est GFR (African American) 78.9; Est GFR (Non-African American) 68.1; Potassium 3.8 mmol/L (3.5-5.1)
[2018-09-03] MEDS: LEVOTHYROXINE SODIUM 50 MCG TABLET PO SCH (06:25)
[2018-09-03] MEDS: ROSUVASTATIN CALCIUM 10 MG TAB PO SCH (08:00)
[2018-09-03] MEDS: PANTOprazole 40 MG TAB PO SCH (08:00)
[2018-09-03] MEDS: CEROVITE ADV FORMULA TAB PO SCH (08:00)
[2018-09-03] MEDS: AMLODIPINE BESYLATE 5 MG TAB PO SCH (08:00)
[2018-09-03] MEDS: ERYTHROMYCIN OP OINT 5 MG/GM 3.5 GM TUBE OP SCH ×5 (08:01→21:22)
[2018-09-03] MEDS: ENOXAPARIN INJ 40 MG/0.4 ML SYR SQ SCH (08:01)
[2018-09-03] MEDS: HYDROCORTISONE SOD 50 MG in SYRINGE 0 ML IV SCH (08:03)
--- NOTE | 2018-09-03 08:36 | Critical Care Progress Note ---
Date of Service September 03, 2018 Assessment & Plan (1) Infection of pacemaker pocket: Reason critically ill: Pt is an 83yo female currently bradycardic with a Hx of second degree heartblock and tachy-cierra syndrome in the setting of a recently removed infected pacemaker on 09/01. Stable for downgrade. 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 -currently bradycardic, in sinus rhythm with 2:1 block -will continue to monitor with plan for emergent pacing with pads or temp pacemaker placement -Echo 08/31 with no evidence of infective vegetations on valves or pacemaker leads -CT scan 08/31- shows evidence of CHF, trace pleural effusions. Crackles heard on exam, no lower extremity swelling. Pt currently w/o SOB, on baseline 2L O2. Can consider low dose lasix should oxygen requirement increase. -EKG 09/01--with sinus rhythm and 2:1 block, LVH and qtc of 446 -continue home amlodipine for HTN, hold metoprolol. -continue home crestor for HLD -appreciate cards consult RESPIRATORY -Pt with Hx of sjogrens, interstitial lung disease -On 2L of oxygen at home, currently on same. At baseline. -chronically on prednisone 10mg, continue IV hydrocortisone stress dosing -continue home atrovent, albuterol and dulera (advair since nonformulary) as needed GI -diet: clear liquids, advance as tolerated. Diabetic diet. -continue home docusate -consider adding additional miralax given pt's Hx of not having a BM in a few days, plus use of PRN opiods. -Protonix daily ENDO -Pt with Hx of hypothyroidism and DMII -hgA1c 7.3 from 2018; repeat hgA1c 7.1 -pt with what appears to be poorly controlled DM based on sugars; will need tight insulin control -continue synthroid for hypothyroidism -hold home metformin; continue ICU protocol for hyperglycemia RENAL//ELECTROLYTES -No concerns currently -Pt with documented Hx of CKD stage 3, however Cr function within normal limits -will continue to monitor and replace electrolytes as needed HEME -Currently anemic, likely post procedural -will continue to monitor ID -Pt with documented MSSA and pseudomonas infection of pacemaker. -Likely related to diabetes, and poor glucose control -Blood cultures positive for MSSA; will get repeat cultures 09/02--no growth to date -Wound culture with both staph and pseudomonas -currently afebrile with downtrending elevated WBC -transition from IV Zosyn to Cefepime 09/02 for easier outpt administration -continue peripheral IV administration of abx until permanent pacemaker placed. Would avoid indwelling catheter devices until then. DVT prophylaxis: Lovenox 30mg PIVs-intact Code Status: Full Dispo: Stable for downgrade Supervising Physician Co-Signing Physician Notes Dr. Juárez was resident physician during care of patient. I separately evaluated patient for eid portions of the history and the exam. I was present during the critical portion of medical decision making, and I discussed the case with the resident. I generally agree with the findings and plan. Patient hypertensive, resumed 5 mg amlodipine this morning Discontinuing steroid burst, patient on 10 mg prednisone chronically given stress dose however patient has not been hypotensive during this stay single dose of hydrocortisone would be adequate. Continuing IV cefepime for easier outpatient administration Continuing to give antibiotics via peripheral IV to avoid indwelling intravascular devices until able to place permanent pacemaker Patient remains hemodynamically stable, downgrade able to let to telemetry status Subjective Pt states she feels well. No episodes of dizziness or lightheadedness overnight. Also denies chest pain, SOB, subjective palps, abd pain. States she has been having BMs. Review of Systems Review of Systems: All systems reviewed & are unremarkable except as noted in HPI & below Physical Exam 2 Physical Exam: General: Alert, oriented. No acute distress. HEENT: NC/AT, Nasal cannula in nares Chest: Nontender to palpation. CV: RRR, Normal s1, s2. Resp: Breath sounds with crackles noted at the bases of the lungs bilaterally. Abdomen: Soft, nontender, No guarding. Extremities: No edema in lower extremities bilaterally. Results & Data Vital Signs (Past 12 Hours) Vital Signs Temp Pulse Resp BP Pulse Ox 09/03/18 06:00 51 L 20 169/76 H 99 09/03/18 05:09 56 L 18 166/78 H 96 09/03/18 04:00 36.8 C 52 L 21 174/73 H 97 09/03/18 03:00 47 L 21 158/65 H 98 09/03/18 02:00 47 L 21 135/73 97 09/03/18 01:00 53 L 24 154/82 H 97 09/03/18 00:39 53 L 09/03/18 00:00 36.8 C 53 L 18 171/74 H 97 09/02/18 23:00 55 L 15 171/82 H 97 09/02/18 22:00 54 L 16 178/75 H 97 09/02/18 21:00 56 L 28 H 160/88 H 97 Laboratory Results Laboratory Results - last 24 hr 09/02/18 09/02/18 09/02/18 11:33 13:20 14:16 Sodium Potassium Chloride Carbon Dioxide Anion Gap BUN Creatinine Est Cr Clr Drug Dosing Est GFR ( Amer) Est GFR (Non-Af Amer) BUN/Creatinine Ratio Glucose POC Glucose 215 H 185 H 142 H Calcium Stl C. diff Tox B Gene 09/02/18 09/02/18 09/02/18 15:12 15:48 16:20 Sodium Potassium Chloride Carbon Dioxide Anion Gap BUN Creatinine Est Cr Clr Drug Dosing Est GFR ( Amer) Est GFR (Non-Af Amer) BUN/Creatinine Ratio Glucose POC Glucose 106 H 95 108 H Calcium Stl C. diff Tox B Gene 09/02/18 09/02/18 09/03/18 17:18 20:51 00:04 Sodium Potassium Chloride Carbon Dioxide Anion Gap BUN Creatinine Est Cr Clr Drug Dosing Est GFR ( Amer) Est GFR (Non-Af Amer) BUN/Creatinine Ratio Glucose POC Glucose 179 H 128 H 135 H Calcium Stl C. diff Tox B Gene 09/03/18 09/03/18 09/03/18 04:16 04:19 07:48 Sodium 137 Potassium 3.8 Chloride 102 Carbon Dioxide 28 Anion Gap 7.0 BUN 14 Creatinine 0.81 Est Cr Clr Drug Dosing 56.8 Est GFR ( Amer) 78.9 Est GFR (Non-Af Amer) 68.1 BUN/Creatinine Ratio 16.8 Glucose 142 H POC Glucose 143 H 132 H Calcium 8.6 Stl C. diff Tox B Gene 09/03/18 09:00 Sodium Potassium Chloride Carbon Dioxide Anion Gap BUN Creatinine Est Cr Clr Drug Dosing Est GFR ( Amer) Est GFR (Non-Af Amer) BUN/Creatinine Ratio Glucose POC Glucose Calcium Stl C. diff Tox B Gene Negative Cdiff Gene Medications Administered Home Medications Artificial Tears (PF) 1 drp OPHTHALMIC (EYE) HS 07/30/18 [History Confirmed 08/30/18] Dulera 2 puff INHALATION Q12H 07/30/18 [History Confirmed 08/30/18] albuterol sulfate 2 puff INHALATION Q6H PRN 07/30/18 [History Confirmed 08/30/18] amlodipine 5 mg PO DAILY 07/30/18 [History Confirmed 08/30/18] levothyroxine 50 mcg PO DAILY 07/30/18 [History Confirmed 08/30/18] metformin 500 mg PO BID 07/30/18 [History Confirmed 08/30/18] omeprazole 20 mg PO DAILY 07/30/18 [History Confirmed 08/30/18] rosuvastatin [Crestor] 10 mg PO DAILY 07/30/18 [History Confirmed 08/30/18] triamcinolone acetonide 1 applic TOPICAL BID 07/30/18 [History Confirmed 08/30/18] Ocuvite Eye Plus Multi 2 tab PO DAILY 08/18/18 [History Confirmed 08/30/18] Probiotic 3,000 mmu cells PO DAILY 08/18/18 [History Confirmed 08/30/18] acetaminophen [Acetaminophen Extra Strength] 1,000 mg PO BID PRN 08/18/18 [History Confirmed 08/30/18] calcium polycarbophil [Fiber (calcium polycarbophil)] 1,250 mg PO DAILY 08/18/18 [History Confirmed 08/30/18] docusate sodium 100 mg PO BID PRN 08/18/18 [History Confirmed 08/30/18] erythromycin 1 applic OPHTHALMIC (EYE) QID 08/18/18 [History Confirmed 08/30/18] ipratropium bromide 0.5 mg INHALATION Q4H PRN 08/18/18 [History Confirmed 08/30/18] metoprolol succinate 50 mg PO BID 08/18/18 [History Confirmed 08/30/18] prednisone 10 mg PO DAILY 08/18/18 [History Confirmed 08/30/18] Active Medications Acetaminophen (Tylenol) 650 mg PO Q4H PRN PRN Reason: Pain or Fever Stop: 09/30/18 03:45 Last Admin: 08/31/18 20:14 Dose: 650 mg Documented by: Albuterol (Ventolin Hfa) 2 puffs INH Q6H PRN PRN Reason: Shortness Of Breath Stop: 10/01/18 17:29 Amlodipine Besylate (Norvasc) 5 mg PO DAILY [facility] Stop: 09/30/18 08:59 Last Admin: 09/03/18 08:00 Dose: 5 mg Documented by: Artificial Tears (Artificial Tears) 1 drops OP HS NYDIA Stop: 09/30/18 20:59 Last Admin: 09/02/18 20:53 Dose: 1 drops Documented by: Dextrose (Dextrose 50%) 25 - 50 ml IV UD PRN; Protocol PRN Reason: Hypoglycemia Protocol Stop: 09/30/18 03:45 Docusate Sodium (Colace) 100 mg PO BID PRN PRN Reason: CONSTIPATION Stop: 09/30/18 06:29 Enoxaparin Sodium (Lovenox) 40 mg SQ QAM [facility] Stop: 10/02/18 08:59 Last Admin: 09/03/18 08:01 Dose: 40 mg Documented by: Erythromycin (Erythromycin) 1 appln OP QID [facility]DIA Stop: 09/10/18 08:59 Last Admin: 09/03/18 08:01 Dose: 1 appln Documented by: Glucagon (Glucagen) 1 mg SQ UD PRN; Protocol PRN Reason: Hypoglycemia Protocol Stop: 09/30/18 03:45 Glucose (Glucose 40%) 15 - 30 gm PO UD PRN; Protocol PRN Reason: Hypoglycemia Protocol Stop: 09/30/18 03:45 Glucose (Dex4 Glucose) 4 - 8 tabs PO UD PRN; Protocol PRN Reason: Hypoglycemia Protocol Stop: 09/30/18 03:45 Hydromorphone HCl (Dilaudid) 0.25 mg IV Q3H PRN PRN Reason: Pain Stop: 09/14/18 03:45 Promethazine HCl 12.5 mg/ (Sodium Chloride) 50.5 mls @ 202 mls/hr IV Q6H PRN PRN Reason: Nausea And Vomiting Stop: 09/30/18 00:49 Last Infusion: 08/31/18 08:50 Dose: Infused Documented by: Cefepime HCl 2,000 mg/ Syringe 20 mls @ 5 mls/min IV Q12 [facility]; Protocol Stop: 09/16/18 10:59 Last Admin: 09/03/18 08:48 Dose: 5 mls/min Documented by: Insulin Aspart (Novolog Flexpen) 0 units SC ACHS [facility] Stop: 10/02/18 20:59 Last Admin: 09/03/18 08:03 Dose: 5 units Documented by: Insulin Human NPH (Novolin N Nph) 0 units SC QAM [facility]; Protocol Stop: 10/04/18 08:59 Ipratropium Maud (Atrovent 0.02% 0.5mg/2.5ml) 0.5 mg NEB Q4H PRN PRN Reason: sob Stop: 10/01/18 17:29 Levothyroxine Sodium (Synthroid) 50 mcg PO DAILYBB [facility] Stop: 09/30/18 06:29 Last Admin: 09/03/18 06:25 Dose: 50 mcg Documented by: Miscellaneous (Order Awaiting Action) 1 ea N/A QS [facility] Stop: 09/30/18 07:59 Last Admin: 09/03/18 08:02 Dose: Not Given Documented by: Miscellaneous (Carbohydrates For Hypoglycemia) 15 - 30 gm PO UD PRN PRN Reason: Hypoglycemia Treatment Stop: 09/30/18 03:45 Miscellaneous Information (Consult Glycemic Management Pharmacy) 1 ea N/A UD PRN PRN Reason: Consult Stop: 10/02/18 07:11 Miscellaneous Information (Cefepime Consult Active) 1 ea N/A UD PRN PRN Reason: Consult Stop: 10/02/18 07:11 Multivitamins/Minerals (Multivitamin W/ Minerals Tab) 1 tab PO DAILY [facility]; Protocol Stop: 09/30/18 08:59 Last Admin: 09/03/18 08:00 Dose: 1 tab Documented by: Oxycodone/Acetaminophen (Percocet 5mg/325mg) 1 - 2 tab PO Q6H PRN PRN Reason: Moderate-Severe Pain Stop: 09/15/18 14:04 Pantoprazole Sodium (Protonix) 40 mg PO DAILY [facility]; Protocol Stop: 09/30/18 08:59 Last Admin: 09/03/18 08:00 Dose: 40 mg Documented by: Prednisone (Prednisone) 10 mg PO QAM [facility] Stop: 10/03/18 08:59 Last Admin: 09/03/18 08:48 Dose: 10 mg Documented by: Rosuvastatin Calcium (Crestor) 10 mg PO DAILY [facility] Stop: 09/30/18 08:59 Last Admin: 09/03/18 08:00 Dose: 10 mg Documented by: Fluticasone/Salmeterol (Advair Diskus 250/50) 1 puffs INH BID PRN PRN Reason: sob Stop: 10/01/18 20:59 Tramadol HCl (Ultram) 25 mg PO Q4H PRN PRN Reason: Pain Stop: 09/30/18 03:45
[2018-09-03] MEDS: CEFEPIME 2,000 MG in SYRINGE 7.5 ML IV SCH ×2 (08:48→21:21)
[2018-09-03] MEDS ORDERED: predniSONE 10 MG TABLET PO SCH (09:00)
[2018-09-03] MEDS ORDERED: INSULIN HUMAN NPH SC ONE (09:00)
--- NOTE | 2018-09-03 11:26 | Pharmacy Report ---
Pharmacy Glycemic Short Note 2 - Date of Service September 03, 2018 - Glycemic Short BSG Results (Last 24 hours): 09/02/18 09/02/18 09/02/18 11:33 13:20 14:16 Glucose POC Glucose 215 H 185 H 142 H 09/02/18 09/02/18 09/02/18 15:12 15:48 16:20 Glucose POC Glucose 106 H 95 108 H 09/02/18 09/02/18 09/03/18 17:18 20:51 00:04 Glucose POC Glucose 179 H 128 H 135 H 09/03/18 09/03/18 09/03/18 04:16 04:19 07:48 Glucose 142 H POC Glucose 143 H 132 H Outpatient Anti-diabetic Regimen: * Metformin 500 mg po BID * Note: also on prednisone 10 mg po daily * A1c = 7.1% on 09/02/18 The patient is currently receiving: * Basal insulin: Lantus 20 units SC x1 09/02 AM * Correctional Insulin: Novolog Correction per scale ACHS Goal Range: Low 120 mg/dL - High 160 mg/dL Correction Factor: 30 mg/dL/unit * Prandial insulin: Per carb ratio of 1 unit per 10 grams CHO consumed * Oral Agents: On hold Risk Factors for Insulin Resistance: * Steroids: hydrocortisone 50 mg IV q8h tapered to q12h on 09/02 and further tapered to home dose of prednisone 10 mg daily, starting 09/03 * Infection: MSSA bacteremia 2nd infected pacemaker with MSSA and Pseudomonas isolated from chest culture. On cefepime. * Recent Surgery: POD 2 s/p removal of infected pacemaker * Diet: T2DM ASSESSMENT: * 83 yo F with T2DM admitted with bacteremia 2nd infected pacemaker. Poor glycemic control while inpatient likely 2nd surgical stress, stress-dose steroids (for home prednisone 10 mg po daily), and significant infection * Insulin drip discontinued yesterday at ~1800 and BSG's have remained in or near goal range, ranging 128-143 mg/dL since discontinuation * Steroids changed from hydrocortisone and tapered to home prednisone dose - will cut basal insulin dose by 50% and will switch from Lantus to NPH 2nd similar pharmacokinetics to prednisone's hyperglycemic effects * Will loosen Novolog parameters 2nd steroid taper and slight decrease in BSG from breakfast to lunch, to weight-based moderate stress estimate PLAN FOR INPATIENT GLYCEMIC CONTROL: * Holding outpatient oral diabetes medications * Basal insulin: NPH 10 units SC x1 this AM. Ongoing NPH qAM based on BSG as follows: * Hold for BSG less than 100 mg/dL * 10 units for BSG 100-140 mg/dL * 15 units for BSG greater than 140 mg/dL * Bolus insulin * NovoLog per scale ACHS * Goal range: 120-160 mg/dL * Correction factor: 35 mg/dL/unit * Carb ratio: 12 g CHO/unit PLAN FOR DISCHARGE: * Continue metformin * Per ICU rounds discussion - despite HbA1c of 7.1%, patient may also benefit from initiation of outpatient insulin to help further prevent diabetic complications (significant infection/bacteremia). If so, would recommend insulin NPH once daily with breakfast/prednisone. Would be very cautious with initial dose to help decrease risk for hypoglycemia and titrate depending on trend in BSG.
--- NOTE | 2018-09-03 12:56 | Cardiology Progress Note ---
Date of Service September 03, 2018 Assessment & Plan (1) Bacteremia due to methicillin susceptible Staphylococcus aureus (MSSA): (2) Mobitz type 2 second degree atrioventricular block: 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 Pacemaker extracted 09/01/2018 without complication. Remains sinus tachycardia with 2-1 AV block on telemetry. Blood pressure remains hypertensive. Continued observation recommended in the intensive care unit. Repeat blood cultures drawn 09/02/2018 with no growth x24 hours. No indication for temporary transvenous pacer at this time. Beta-renu will remain on hold. Tentative plan for permanent pacemaker implantation after blood cultures have cleared and patient has received adequate antibiotic treatment per guidance of infectious disease specialist. (3) Infection of pacemaker pocket: Continue current antibiotic therapy per direction of infectious disease. (4) Interstitial lung disease: Dry crackles on exam likely secondary to ILD. Patient does not appear volume overloaded. She will obtain her Dulera inhaler from home today. Continue to monitor. Lovenox for DVT prophylaxis. Subjective Patient seen and examined at the bedside. Continues to be hypertensive. Notes mild dyspnea at rest which is baseline however feels slightly worse without her Dulera inhaler. Family member is bringing her inhaler to the hospital later today. Denies chest pain or shortness of breath. No lightheadedness, dizziness, syncope, or near syncope. Rhythm is sinus tachycardia with 2-1 AV block on telemetry. No high degree heart block or significant pauses recorded. Review of Systems Review of Systems: All systems reviewed & are unremarkable except as noted in HPI & below Physical Exam Physical Exam: General: NAD, AAO x3, well nourished. HEENT: Normocephalic. Atraumatic. Conjunctiva pink, no scleral icterus. Neck: No carotid bruits, the carotid upstrokes are brisk. No JVD. No HJR. Chest: Left-sided pacemaker site dressing clean, dry, intact. No erythema or drainage. Heart: Regular borderline tachycardic, normal S-1 and S-2 no S-3 or S-4 gallop. No murmurs or rub appreciated. PMI is not displaced. No RV heave. Lungs: + Dry crackles bilateral. No rhonchi. Mild end expiratory wheezing. Abdomen: Normal bowel sounds. Soft. Nontender. No masses or organomegaly. No abdominal bruits. Extremities: No clubbing, cyanosis, or edema. Pulses: radial=2/4, Dorsalis pedis =2/4, posterior tibial=2/4. Neuro: Cranial nerves grossly intact. No focal motor deficit. Results & Data Vital Signs (Past 12 Hours) Vital Signs Temp Pulse Pulse Resp BP BP Pulse Ox 09/03/18 11:00 52 L 20 178/66 H 97 09/03/18 10:00 57 L 20 157/70 H 96 09/03/18 09:00 63 25 H 176/68 H 94 09/03/18 08:00 36.5 C 59 L 16 167/74 H 95 09/03/18 07:00 50 L 23 184/73 H 99 09/03/18 06:00 51 L 20 169/76 H 99 09/03/18 05:09 56 L 18 166/78 H 96 09/03/18 04:00 36.8 C 52 L 21 174/73 H 97 09/03/18 03:00 47 L 21 158/65 H 98 09/03/18 02:00 47 L 21 135/73 97 09/03/18 01:00 53 L 24 154/82 H 97
[2018-09-03] MEDS ORDERED: AMLODIPINE BESYLATE 5 MG TAB PO ONE (13:16)
[2018-09-03] MEDS ORDERED: XOPENEX/ATROVENT 0.63mg/0.5MG NEB COMBO NEB SCH (13:30)
--- NOTE | 2018-09-03 13:34 | XRay Report ---
XR chest 1V portable CLINICAL HISTORY: Shortness of breath. COMPARISON STUDY: Chest radiograph August 30, 2018. Chest CT August 31, 2018. FINDINGS: The left subclavian pacemaker has been removed. As expected, there is gas within the operat jaime bed. There is no pneumothorax. Interstitial thickening has slightly increased. There may be trace bilateral pleural effusions. Cardiomediastinal silhouette is stable. Lung volumes are diminished. Th is is unchanged. IMPRESSION: Increase in interstitial thickening which may reflect pulmonary edema or an infectious p rocess superimposed upon interstitial lung disease. Electronically signed by: Jamie العراقي M.D. 09/03/2018 1:33 PM
[2018-09-03] MEDS: IPRATROPIUM BROMIDE NEB SOLN 0.02% 2.5 ML VIAL INH SCH ×2 (13:58→19:11)
[2018-09-03] MEDS: LEVALBUTEROL HCL 0.63 MG/3 ML NEB NEB SCH ×2 (13:58→19:11)
[2018-09-03] MEDS: FLUTICASONE/SALMETEROL 100/50 (ADVAIR) 14 PUFF/1 INHALER INH SCH ×2 (16:57→21:20)
--- NOTE | 2018-09-03 16:57 | Hospitalist Progress Note ---
Date of Service September 03, 2018 Assessment & Plan (1) Sepsis: Secondary to pacemaker site infection Pseudomonas and MSSA, bacteremia MSSA hx SSS sp recent PPM Immunocompromised patient Hx Sjogren's syndrome on chronic steroid Rx Status post removal of pacemaker Wound culture: Positive for Pseudomonas and MSSA Blood cultures: Positive for MSSA Continue cefepime IV Remains afebrile ID on board Hydrocortisone stress dose ordered in light of patient's chronic prednisone use- convert to prednisone 40 mg p.o. daily today Interstitial lung disease History of Sjogren's syndrome with lung involvement On chronic prednisone 5 mg p.o. daily Today reports mild dyspnea, remains on 2 L of nasal cannula, positive crackles bilaterally Chest x-ray: Interstitial thickening, possible pulmonary edema versus infection Already on cefepime Start prednisone 40 mg p.o. daily Lasix 20 mg IV 1 dose Monitor closely, may need a neurologist evaluation without improvement by tomorrow morning Hypertension Amlodipine increased to 10 mg p.o. daily for better BP control DM2 ISS DVT prophylaxis. Lovenox subcu Full code Disposition Pending Subjective Follow-up for pacemaker site infection Seen sitting up in bed, comfortable, nondistressed, 2 L of nasal cannula Reports dyspnea today, no cough, sputum production, no fevers or chills Discomfort over pacemaker site Denies palpitations, chest pain, dizziness No other symptoms Review of Systems Review of Systems: All systems reviewed & are unremarkable except as noted in HPI & below Physical Exam Physical Exam: General- oriented x 3, not in distress, speaks in sentences with no effort or accessory muscle use Eyes- anicteric Neck- no JVD Lungs-positive crackles bilaterally, no wheezing Heart- normal rate, regular rhythm; no murmurs Pacemaker site-wounds will opposed, no active discharge or bleeding, no surrounding erythema tenderness Abdomen- normal bowel sounds, nondistended, soft, nontender Extremities- no pretibial edema, no calf tenderness Neuro- alert, oriented x 3; no gross focal neurologic deficits Skin- warm & dry Results & Data Vital Signs (Past 12 Hours) Vital Signs Temp Pulse Pulse Resp BP BP Pulse Ox 09/03/18 15:30 59 L 24 95 09/03/18 15:01 57 L 23 97 09/03/18 15:00 57 L 22 136/68 96 09/03/18 14:30 59 L 27 H 95 09/03/18 14:01 62 17 100 09/03/18 14:00 63 62 18 173/69 H 100 09/03/18 13:30 63 28 H 93 09/03/18 13:00 96 09/03/18 12:50 62 26 H 162/72 H 97 09/03/18 12:30 68 25 H 89 L 09/03/18 12:01 63 20 93 09/03/18 12:00 62 21 171/92 H 94 09/03/18 11:30 58 L 24 100 09/03/18 11:01 54 L 21 97 09/03/18 11:00 53 L 52 L 20 178/66 H 178/66 H 98 09/03/18 10:30 65 19 95 09/03/18 10:00 57 L 20 157/70 H 96 09/03/18 09:00 63 25 H 176/68 H 94 09/03/18 08:00 36.5 C 59 L 16 167/74 H 95 09/03/18 07:00 50 L 23 184/73 H 99 09/03/18 06:00 51 L 20 169/76 H 99 09/03/18 05:09 56 L 18 166/78 H 96 Laboratory Results Laboratory Results - last 24 hr 09/02/18 09/02/18 09/03/18 17:18 20:51 00:04 Sodium Potassium Chloride Carbon Dioxide Anion Gap BUN Creatinine Est Cr Clr Drug Dosing Est GFR ( Amer) Est GFR (Non-Af Amer) BUN/Creatinine Ratio Glucose POC Glucose 179 H 128 H 135 H Calcium Stl C. diff Tox B Gene 09/03/18 09/03/18 09/03/18 04:16 04:19 07:48 Sodium 137 Potassium 3.8 Chloride 102 Carbon Dioxide 28 Anion Gap 7.0 BUN 14 Creatinine 0.81 Est Cr Clr Drug Dosing 56.8 Est GFR ( Amer) 78.9 Est GFR (Non-Af Amer) 68.1 BUN/Creatinine Ratio 16.8 Glucose 142 H POC Glucose 143 H 132 H Calcium 8.6 Stl C. diff Tox B Gene 09/03/18 09/03/18 09/03/18 09:00 11:40 12:54 Sodium Potassium Chloride Carbon Dioxide Anion Gap BUN Creatinine Est Cr Clr Drug Dosing Est GFR ( Amer) Est GFR (Non-Af Amer) BUN/Creatinine Ratio Glucose POC Glucose 107 H 143 H Calcium Stl C. diff Tox B Gene Negative Cdiff Gene 09/03/18 16:16 Sodium Potassium Chloride Carbon Dioxide Anion Gap BUN Creatinine Est Cr Clr Drug Dosing Est GFR ( Amer) Est GFR (Non-Af Amer) BUN/Creatinine Ratio Glucose POC Glucose 174 H Calcium Stl C. diff Tox B Gene
--- NOTE | 2018-09-03 19:23 | Infectious Disease Progress Nt ---
Date of Service September 03, 2018 Assessment & Plan (1) Infection of pacemaker pocket: Patient with infected pacemaker pocket with MSSA bacteremia with staph aureus and Pseudomonas growing in pacemaker pocket. Patient changed to IV cefepime, will likely require prolonged IV antibiotics. Will follow. (2) Bacteremia due to methicillin susceptible Staphylococcus aureus (MSSA): (3) Infection due to gram-negative anaerobic organism: Subjective Patient seen in follow-up for sepsis with pacemaker pocket infection. Patient now out, cultures growing staph and Pseudomonas. Short of breath. Currently afebrile. Review of Systems Review of Systems: All systems reviewed & are unremarkable except as noted in HPI & below Physical Exam Constitutional: WD/WN, vitals as above comfortable; no acute distress Eyes: PERRL, conjunctivae normal, anicteric sclerae ENMT: external ear and nose normal, oropharynx normal Neck: trachea midline, no thyromegaly neck nontender Respiratory: normal respiratory effort, lungs clear to auscultation normal percussion; no respiratory distress and does not use accessory muscles Cardiovascular: Rate/Rhythm: regular rate and regular rhythm Heart Sounds: normal S1 and normal S2; no gallop, no murmur and no cardiac rub Vessels: normal peripheral pulses; no JVD Gastrointestinal (Abdomen): normal bowel sounds, soft, nontender, no hepatosplenomegaly Musculoskeletal: no cyanosis or clubbing, extremities motor strength 5/5 Spine: thoracic spine normal to inspection and lumbar spine normal to inspection; no cervical spinal tenderness Skin: no rashes, warm and dry normal turgor and + wound (Pacemaker pocket with erythema drainage); no rashes Neurologic: patellar DTR's 2+ bilat, sensation intact moves all extremities and awake; no focal motor deficits Motor/Sensory: no sensory deficit Psychiatric: A+Ox3, euthymic affect Orientation: cooperative Lymphatic: no cervical or axillary lymphadenopathy no inguinal lymphadenopathy Results & Data Vital Signs (Past 12 Hours) Vital Signs Temp Pulse Pulse Resp BP BP Pulse Ox 09/03/18 19:14 58 L 18 97 09/03/18 18:00 58 L 20 97 09/03/18 17:30 59 L 25 H 96 09/03/18 17:00 63 23 96 09/03/18 16:30 62 20 09/03/18 16:01 36.7 C 54 L 23 96 09/03/18 16:00 55 L 24 157/61 H 96 09/03/18 15:30 59 L 24 95 09/03/18 15:01 57 L 23 97 09/03/18 15:00 57 L 22 136/68 96 09/03/18 14:30 59 L 27 H 95 09/03/18 14:01 62 17 100 09/03/18 14:00 63 62 18 173/69 H 100 09/03/18 13:30 63 28 H 93 09/03/18 13:00 96 09/03/18 12:50 62 26 H 162/72 H 97 09/03/18 12:30 68 25 H 89 L 09/03/18 12:01 63 20 93 09/03/18 12:00 62 21 171/92 H 94 09/03/18 11:30 58 L 24 100 09/03/18 11:01 54 L 21 97 09/03/18 11:00 53 L 52 L 20 178/66 H 178/66 H 98 09/03/18 10:30 65 19 95 09/03/18 10:00 57 L 20 157/70 H 96 09/03/18 09:00 63 25 H 176/68 H 94 09/03/18 08:00 36.5 C 59 L 16 167/74 H 95 Laboratory Results [facility] 09/03/18 04:19 Sodium 137 Potassium 3.8 Chloride 102 Carbon Dioxide 28 BUN 14 Creatinine 0.81 Glucose 142 H Calcium 8.6 Diagnostic Findings Microbiology 09/02/18 08:08 Blood Aerobic Blood Culture - Preliminary No growth in Aerobic bottle after 24 hours. 09/02/18 08:08 Blood Anaerobic Blood Culture - Preliminary No growth in Anaerobic bottle after 24 hours. 09/02/18 08:20 Blood Aerobic Blood Culture - Preliminary No growth in Aerobic bottle after 24 hours. 09/02/18 08:20 Blood Anaerobic Blood Culture - Preliminary No growth in Anaerobic bottle after 24 hours. 08/31/18 Unknown Chest Gram Stain - Final 08/31/18 Unknown Chest Wound Culture - Final Pseudomonas aeruginosa Staphylococcus aureus 08/30/18 23:59 Blood Aerobic Blood Culture - Final Staphylococcus aureus 08/30/18 23:59 Blood Anaerobic Blood Culture - Final Staphylococcus aureus 08/30/18 23:55 Blood Aerobic Blood Culture - Final Staphylococcus aureus 08/30/18 23:55 Blood Anaerobic Blood Culture - Final Staphylococcus aureus XR chest 1V portable CLINICAL HISTORY: Shortness of breath. COMPARISON STUDY: Chest radiograph August 30, 2018. Chest CT August 31, 2018. FINDINGS: The left subclavian pacemaker has been removed. As expected, there is gas within the operative bed. There is no pneumothorax. Interstitial thickening has slightly increased. There may be trace bilateral pleural effusions. Cardiomediastinal silhouette is stable. Lung volumes are diminished. This is unchanged. IMPRESSION: Increase in interstitial thickening which may reflect pulmonary edema or an infectious process superimposed upon interstitial lung disease. Electronically signed by: Jamie العراقي M.D. 09/03/2018 1:33 PM Dictated: 09/03/18 1655
[2018-09-03] MEDS: ARTIFICIAL TEARS OP SCH (21:22)
[2018-09-03] MEDS: predniSONE 20 MG TAB PO SCH (22:04)
[2018-09-04] MEDS: LEVALBUTEROL HCL 0.63 MG/3 ML NEB NEB SCH ×4 (01:43→19:17)
[2018-09-04] MEDS: IPRATROPIUM BROMIDE NEB SOLN 0.02% 2.5 ML VIAL INH SCH ×4 (01:43→19:17)
[2018-09-04] MEDS: LEVOTHYROXINE SODIUM 50 MCG TABLET PO SCH (06:42)
--- NOTE | 2018-09-04 07:07 | Critical Care Progress Note ---
Date of Service September 04, 2018 Assessment & Plan (1) Infection of pacemaker pocket: Reason critically ill: Pt is an 83yo female currently bradycardic with a Hx of second degree heartblock and tachy-cierra syndrome in the setting of a recently removed infected pacemaker on 09/01. Currently stable for downgrade. ICU is SIGNING OFF on this patient, thank you for allowing us to participate in this patient's care. Please consult if any further/new questions arise. 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 -currently bradycardic, in sinus rhythm with 2:1 block -will continue to monitor with plan for emergent pacing with pads or temp pacemaker placement -Echo 08/31 with no evidence of infective vegetations on valves or pacemaker leads -CT scan 08/31- shows evidence of CHF, trace pleural effusions. Crackles heard on exam, no lower extremity swelling. Pt currently w/o SOB, on baseline 2L O2. Can consider low dose lasix should oxygen requirement increase. -EKG 09/01--with sinus rhythm and 2:1 block, LVH and qtc of 446 -continue home amlodipine for HTN, hold metoprolol. -continue home crestor for HLD -appreciate cards consult RESPIRATORY -Pt with Hx of sjogrens, interstitial lung disease -On 2L of oxygen at home, currently on same. At baseline. -chronically on prednisone 10mg, continue IV hydrocortisone stress dosing -continue home atrovent, albuterol and dulera (advair since nonformulary) as needed GI -diet: clear liquids, advance as tolerated. Diabetic diet. -continue home docusate -consider adding additional miralax given pt's Hx of not having a BM in a few days, plus use of PRN opiods. -Protonix daily ENDO -Pt with Hx of hypothyroidism and DMII -hgA1c 7.3 from 2018; repeat hgA1c 7.1 -pt with what appears to be poorly controlled DM based on sugars; will need tight insulin control -continue synthroid for hypothyroidism -hold home metformin; continue ICU protocol for hyperglycemia RENAL//ELECTROLYTES -No concerns currently -Pt with documented Hx of CKD stage 3, however Cr function within normal limits -will continue to monitor and replace electrolytes as needed HEME -Currently anemic, likely post procedural -will continue to monitor ID -Pt with documented MSSA and pseudomonas infection of pacemaker. -Likely related to diabetes, and poor glucose control -Blood cultures positive for MSSA; will get repeat cultures 09/02--no growth to date -Wound culture with both staph and pseudomonas -currently afebrile with downtrending elevated WBC -transition from IV Zosyn to Cefepime 09/02 for easier outpt administration -continue peripheral IV administration of abx until permanent pacemaker placed. Would avoid indwelling catheter devices until then. DVT prophylaxis: Lovenox 30mg PIVs-intact Code Status: Full Dispo: ICU signing off, stable for downgrade. Supervising Physician Co-Signing Physician Notes Dr. Juárez was resident physician during care of patient. I separately evaluated patient for eid portions of the history and the exam. I was present during the critical portion of medical decision making, and I discussed the case with the resident. I generally agree with the findings and plan. Subjective Ms. Kunz states she's doing well this AM. Was receiving breathing treatment when seen. Currently denies chest pain, SOB, palps. Review of Systems Review of Systems: All systems reviewed & are unremarkable except as noted in HPI & below Physical Exam Physical Exam: General: Alert, oriented. No acute distress. HEENT: NC/AT Chest: Nontender to palpation. CV: RRR, Normal s1, s2. Resp: Breath sounds with crackles noted at the bases of the lungs bilaterally. Abdomen: Soft, nontender, No guarding. Extremities: No edema in lower extremities bilaterally. Results & Data Vital Signs (Past 12 Hours) Vital Signs Temp Pulse Pulse Resp BP Pulse Ox Pulse Ox 09/04/18 06:04 61 23 174/75 H 98 09/04/18 05:01 60 23 171/78 H 99 09/04/18 04:00 36.6 C 55 L 22 146/68 H 99 09/04/18 03:00 56 L 23 167/66 H 99 09/04/18 02:01 60 17 176/74 H 98 09/04/18 01:45 64 16 96 09/04/18 01:00 54 L 23 139/64 97 09/04/18 00:13 36.6 C 59 L 23 175/74 H 97 09/03/18 23:00 60 18 171/82 H 99 09/03/18 22:01 61 27 H 97 09/03/18 22:00 60 35 H 154/69 H 97 09/03/18 21:30 58 L 26 H 96 09/03/18 21:01 60 20 96 09/03/18 21:00 58 L 19 157/67 H 97 09/03/18 20:30 61 22 96 09/03/18 20:01 61 23 94 09/03/18 20:00 36.7 C 61 22 147/71 H 95 93 09/03/18 19:30 62 20 95 09/03/18 19:14 58 L 18 97 Laboratory Results Laboratory Results - last 24 hr 09/03/18 09/03/18 09/03/18 09:00 11:40 12:54 POC Glucose 107 H 143 H Stl C. diff Tox B Gene Negative Cdiff Gene 09/03/18 09/03/18 09/04/18 16:16 21:18 07:24 POC Glucose 174 H 170 H 192 H Stl C. diff Tox B Gene Medications Administered Home Medications Artificial Tears (PF) 1 drp OPHTHALMIC (EYE) HS 07/30/18 [History Confirmed 08/30/18] Dulera 2 puff INHALATION Q12H 07/30/18 [History Confirmed 08/30/18] albuterol sulfate 2 puff INHALATION Q6H PRN 07/30/18 [History Confirmed 08/30/18] amlodipine 5 mg PO DAILY 07/30/18 [History Confirmed 08/30/18] levothyroxine 50 mcg PO DAILY 07/30/18 [History Confirmed 08/30/18] metformin 500 mg PO BID 07/30/18 [History Confirmed 08/30/18] omeprazole 20 mg PO DAILY 07/30/18 [History Confirmed 08/30/18] rosuvastatin [Crestor] 10 mg PO DAILY 07/30/18 [History Confirmed 08/30/18] triamcinolone acetonide 1 applic TOPICAL BID 07/30/18 [History Confirmed 08/30/18] Ocuvite Eye Plus Multi 2 tab PO DAILY 08/18/18 [History Confirmed 08/30/18] Probiotic 3,000 mmu cells PO DAILY 08/18/18 [History Confirmed 08/30/18] acetaminophen [Acetaminophen Extra Strength] 1,000 mg PO BID PRN 08/18/18 [History Confirmed 08/30/18] calcium polycarbophil [Fiber (calcium polycarbophil)] 1,250 mg PO DAILY 08/18/18 [History Confirmed 08/30/18] docusate sodium 100 mg PO BID PRN 08/18/18 [History Confirmed 08/30/18] erythromycin 1 applic OPHTHALMIC (EYE) QID 08/18/18 [History Confirmed 08/30/18] ipratropium bromide 0.5 mg INHALATION Q4H PRN 08/18/18 [History Confirmed 08/30/18] metoprolol succinate 50 mg PO BID 08/18/18 [History Confirmed 08/30/18] prednisone 10 mg PO DAILY 08/18/18 [History Confirmed 08/30/18] Active Medications Acetaminophen (Tylenol) 650 mg PO Q4H PRN PRN Reason: Pain or Fever Stop: 09/30/18 03:45 Last Admin: 08/31/18 20:14 Dose: 650 mg Documented by: Albuterol (Ventolin Hfa) 2 puffs INH Q6H PRN PRN Reason: Shortness Of Breath Stop: 10/01/18 17:29 Amlodipine Besylate (Norvasc) 5 mg PO DAILY [facility] Stop: 09/30/18 08:59 Last Admin: 09/04/18 09:48 Dose: 5 mg Documented by: Artificial Tears (Artificial Tears) 1 drops OP HS [facility] Stop: 09/30/18 20:59 Last Admin: 09/03/18 21:22 Dose: 1 drops Documented by: Dextrose (Dextrose 50%) 25 - 50 ml IV UD PRN; Protocol PRN Reason: Hypoglycemia Protocol Stop: 09/30/18 03:45 Docusate Sodium (Colace) 100 mg PO BID PRN PRN Reason: CONSTIPATION Stop: 09/30/18 06:29 Enoxaparin Sodium (Lovenox) 40 mg SQ QAM [facility] Stop: 10/02/18 08:59 Last Admin: 09/04/18 08:19 Dose: 40 mg Documented by: Erythromycin (Erythromycin) 1 appln OP QID [facility] Stop: 09/10/18 08:59 Last Admin: 09/04/18 08:19 Dose: Not Given Documented by: Glucagon (Glucagen) 1 mg SQ UD PRN; Protocol PRN Reason: Hypoglycemia Protocol Stop: 09/30/18 03:45 Glucose (Glucose 40%) 15 - 30 gm PO UD PRN; Protocol PRN Reason: Hypoglycemia Protocol Stop: 09/30/18 03:45 Glucose (Dex4 Glucose) 4 - 8 tabs PO UD PRN; Protocol PRN Reason: Hypoglycemia Protocol Stop: 09/30/18 03:45 Hydromorphone HCl (Dilaudid) 0.25 mg IV Q3H PRN PRN Reason: Pain Stop: 09/14/18 03:45 Promethazine HCl 12.5 mg/ (Sodium Chloride) 50.5 mls @ 202 mls/hr IV Q6H PRN PRN Reason: Nausea And Vomiting Stop: 09/30/18 00:49 Last Infusion: 08/31/18 08:50 Dose: Infused Documented by: Cefepime HCl 2,000 mg/ Syringe 20 mls @ 5 mls/min IV Q12 [facility]; Protocol Stop: 09/16/18 10:59 Last Admin: 09/04/18 08:27 Dose: 5 mls/min Documented by: Insulin Aspart (Novolog Flexpen) 0 units SC ACHS [facility] Stop: 10/02/18 20:59 Last Admin: 09/04/18 08:25 Dose: 4 units Documented by: Insulin Human NPH (Novolin N Nph) 0 units SC QAM [facility]; Protocol Stop: 10/04/18 08:59 Last Admin: 09/04/18 08:24 Dose: 15 units Documented by: Ipratropium [place] (Atrovent 0.02% 0.5mg/2.5ml) 0.5 mg NEB Q4H PRN PRN Reason: sob Stop: 10/01/18 17:29 Ipratropium [place] (Atrovent 0.02% 0.5mg/2.5ml) 0.5 mg INH Q6R [facility] Stop: 10/03/18 13:59 Last Admin: 09/04/18 07:21 Dose: 0.5 mg Documented by: Levalbuterol HCl (Xopenex 0.63 Mg/3 Ml Neb) 0.63 mg NEB Q6R [facility] Stop: 10/03/18 13:59 Last Admin: 09/04/18 07:21 Dose: 0.63 mg Documented by: Levothyroxine Sodium (Synthroid) 50 mcg PO DAILYBB [facility] Stop: 09/30/18 06:29 Last Admin: 09/04/18 06:42 Dose: 50 mcg Documented by: Miscellaneous (Order Awaiting Action) 1 ea N/A QS [facility] Stop: 09/30/18 07:59 Last Admin: 09/04/18 08:21 Dose: Not Given Documented by: Miscellaneous (Carbohydrates For Hypoglycemia) 15 - 30 gm PO UD PRN PRN Reason: Hypoglycemia Treatment Stop: 09/30/18 03:45 Miscellaneous Information (Consult Glycemic Management Pharmacy) 1 ea N/A UD PRN PRN Reason: Consult Stop: 10/02/18 07:11 Miscellaneous Information (Cefepime Consult Active) 1 ea N/A UD PRN PRN Reason: Consult Stop: 10/02/18 07:11 Multivitamins/Minerals (Multivitamin W/ Minerals Tab) 1 tab PO DAILY [facility]; Protocol Stop: 09/30/18 08:59 Last Admin: 09/04/18 08:18 Dose: 1 tab Documented by: Oxycodone/Acetaminophen (Percocet 5mg/325mg) 1 - 2 tab PO Q6H PRN PRN Reason: Moderate-Severe Pain Stop: 09/15/18 14:04 Pantoprazole Sodium (Protonix) 40 mg PO DAILY [facility]; Protocol Stop: 09/30/18 08:59 Last Admin: 09/04/18 08:18 Dose: 40 mg Documented by: Prednisone (Prednisone) 10 mg PO QAM [facility] Stop: 10/03/18 08:59 Last Admin: 09/03/18 08:48 Dose: 10 mg Documented by: Prednisone (Prednisone) 40 mg PO DAILY [facility] Stop: 10/03/18 17:14 Last Admin: 09/04/18 08:19 Dose: 40 mg Documented by: Rosuvastatin Calcium (Crestor) 10 mg PO DAILY [facility] Stop: 09/30/18 08:59 Last Admin: 09/04/18 08:18 Dose: 10 mg Documented by: Fluticasone/Salmeterol (Advair Diskus 100/50) 1 puffs INH BID [facility] Stop: 10/03/18 13:19 Last Admin: 09/04/18 08:17 Dose: 1 puffs Documented by: Tramadol HCl (Ultram) 25 mg PO Q4H PRN PRN Reason: Pain Stop: 09/30/18 03:45
[2018-09-04] MEDS: FLUTICASONE/SALMETEROL 100/50 (ADVAIR) 14 PUFF/1 INHALER INH SCH ×2 (08:17→20:15)
[2018-09-04] MEDS: PANTOprazole 40 MG TAB PO SCH (08:18)
[2018-09-04] MEDS: ROSUVASTATIN CALCIUM 10 MG TAB PO SCH (08:18)
[2018-09-04] MEDS: CEROVITE ADV FORMULA TAB PO SCH (08:18)
[2018-09-04] MEDS: ERYTHROMYCIN OP OINT 5 MG/GM 3.5 GM TUBE OP SCH ×4 (08:19→20:15)
[2018-09-04] MEDS: ENOXAPARIN INJ 40 MG/0.4 ML SYR SQ SCH (08:19)
[2018-09-04] MEDS: predniSONE 20 MG TAB PO SCH (08:19)
[2018-09-04] MEDS: INSULIN HUMAN NPH SC SCH (08:24)
[2018-09-04] MEDS: INSULIN ASPART 100 UNITS/ML 3 ML PEN SC SCH ×4 (08:25→20:19)
[2018-09-04] MEDS: CEFEPIME 2,000 MG in SYRINGE 7.5 ML IV SCH ×2 (08:27→20:15)
[2018-09-04] MEDS: AMLODIPINE BESYLATE 5 MG TAB PO SCH (09:48)
[2018-09-04] MEDS ORDERED: AMLODIPINE BESYLATE 5 MG TAB PO ONE (09:57)
--- NOTE | 2018-09-04 10:14 | Cardiology Progress Note ---
Date of Service September 04, 2018 Assessment & Plan (1) Bacteremia due to methicillin susceptible Staphylococcus aureus (MSSA): (2) Mobitz type 2 second degree atrioventricular block: 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 Pacemaker extracted 09/01/2018 without complication. Remains sinus tachycardia with 2-1 AV block on telemetry. Blood pressure remains hypertensive. Titrate amlodipine to 10 mg daily. Patient will receive an additional 5 mg x 1 today. Repeat blood cultures drawn 09/02/2018 with no growth x 48 hours. No indication for temporary transvenous pacer at this time. Beta-renu will remain on hold. Tentative plan for permanent pacemaker implantation after blood cultures have cleared and patient has received adequate antibiotic treatment per guidance of infectious disease specialist. (3) Infection of pacemaker pocket: Continue current antibiotic therapy per direction of infectious disease. (4) Interstitial lung disease: Dry crackles on exam likely secondary to ILD. Patient does not appear volume overloaded. She will obtain her Dulera inhaler from home today. Continue to monitor. Lovenox for DVT prophylaxis. Subjective Patient seen and examined on the bedside. Remains sinus rhythm with 2-1 AV block on telemetry. Hypertensive since discontinuation of Toprol-XL. Respiratory status improved with addition of Dulera from home medications. Patient offers no other concerns/complaints at this time. Review of Systems Review of Systems: All systems reviewed & are unremarkable except as noted in HPI & below Physical Exam Physical Exam: General: NAD, AAO x3, well nourished. HEENT: Normocephalic. Atraumatic. Conjunctiva pink, no scleral icterus. Neck: No carotid bruits, the carotid upstrokes are brisk. No JVD. No HJR. Chest: Left-sided pacemaker site dressing clean, dry, intact. No erythema or drainage. Heart: Regular borderline tachycardic, normal S-1 and S-2 no S-3 or S-4 gallop. No murmurs or rub appreciated. PMI is not displaced. No RV heave. Lungs: + Dry crackles bilateral. No rhonchi. Mild end expiratory wheezing. Abdomen: Normal bowel sounds. Soft. Nontender. No masses or organomegaly. No abdominal bruits. Extremities: No clubbing, cyanosis, or edema. Pulses: radial=2/4, Dorsalis pedis =2/4, posterior tibial=2/4. Neuro: Cranial nerves grossly intact. No focal motor deficit. Results & Data Vital Signs (Past 12 Hours) Vital Signs Temp Pulse Pulse Pulse Resp BP Pulse Ox 09/04/18 07:21 54 L 18 99 09/04/18 06:04 61 23 174/75 H 98 09/04/18 05:01 60 23 171/78 H 99 09/04/18 04:00 36.6 C 55 L 22 146/68 H 99 09/04/18 03:00 56 L 23 167/66 H 99 09/04/18 02:01 60 17 176/74 H 98 09/04/18 01:45 64 16 96 09/04/18 01:00 54 L 23 139/64 97 09/04/18 00:13 36.6 C 59 L 23 175/74 H 97 09/03/18 23:00 60 18 171/82 H 99
--- NOTE | 2018-09-04 10:40 | Hospitalist Progress Note ---
Date of Service September 04, 2018 Assessment & Plan (1) Sepsis: Secondary to pacemaker site infection Pseudomonas and MSSA, bacteremia MSSA hx SSS sp recent PPM Immunocompromised patient Hx Sjogren's syndrome on chronic steroid Rx Status post removal of pacemaker Wound culture: Positive for Pseudomonas and MSSA Blood cultures: Positive for MSSA Continue cefepime IV Remains afebrile ID on board Hydrocortisone stress dose ordered in light of patient's chronic prednisone use- convert to prednisone 40 mg p.o. daily today Interstitial lung disease History of Sjogren's syndrome with lung involvement On chronic prednisone 5 mg p.o. daily reported mild dyspnea, remains on 2 L of nasal cannula, positive crackles bilaterally Chest x-ray: Interstitial thickening, possible pulmonary edema versus infection Already on cefepime Started prednisone 40 mg p.o. daily Lasix 20 mg IV 1 dose - improving gradually monitor Monitor closely, may need a neurologist evaluation without improvement by tomorrow morning Hypertension Amlodipine increased to 10 mg p.o. daily for better BP control DM2 ISS DVT prophylaxis. Lovenox subcu Full code Disposition Pending Subjective ff up for pacemaker site infection seen resting in bed, comfortable, not in distress states dyspnea is improved compared to yesterday denies cough no pain over pacemaker site no chest pain, palpitations, dizziness no other symptoms Review of Systems Review of Systems: All systems reviewed & are unremarkable except as noted in HPI & below Physical Exam Physical Exam: General- oriented x 3, not in distress, speaks in sentences with no effort or accessory muscle use Eyes- anicteric Neck- no JVD Lungs- (+) crackles BL, no wheezing Heart- normal rate, regular rhythm; no murmurs pacemaker site- dressing in place, no bleeding/discharge Abdomen- normal bowel sounds, nondistended, soft, nontender Extremities- no pretibial edema, no calf tenderness Neuro- alert, oriented x 3; no gross focal neurologic deficits Skin- warm & dry Results & Data Vital Signs (Past 12 Hours) Vital Signs Temp Pulse Pulse Pulse Resp BP Pulse Ox 09/04/18 07:21 54 L 18 99 09/04/18 06:04 61 23 174/75 H 98 09/04/18 05:01 60 23 171/78 H 99 09/04/18 04:00 36.6 C 55 L 22 146/68 H 99 09/04/18 03:00 56 L 23 167/66 H 99 09/04/18 02:01 60 17 176/74 H 98 09/04/18 01:45 64 16 96 09/04/18 01:00 54 L 23 139/64 97 09/04/18 00:13 36.6 C 59 L 23 175/74 H 97 09/03/18 23:00 60 18 171/82 H 99
--- NOTE | 2018-09-04 12:19 | Pharmacy Report ---
Pharmacy Glycemic Short Note 2 - Date of Service September 04, 2018 - Glycemic Short BSG Results (Last 24 hours): 09/03/18 09/03/18 09/03/18 12:54 16:16 21:18 POC Glucose 143 H 174 H 170 H 09/04/18 09/04/18 07:24 11:27 POC Glucose 192 H 198 H Outpatient Anti-diabetic Regimen: * Metformin 500 mg po BID * Note: also on prednisone 10 mg po daily * A1c = 7.1% on 09/02/18 Risk Factors for Insulin Resistance: * Steroids: tapered to home dose of prednisone 10 mg daily yesterday, then increased and started 40mg PO daily last night * Infection: MSSA bacteremia 2nd infected pacemaker with MSSA and Pseudomonas isolated from chest culture. On cefepime. * Recent Surgery: POD 3 s/p removal of infected pacemaker * Diet: T2DM ASSESSMENT: 09/04/18 * Prednisone increased last night to 40mg daily, started last night, tighten CF and CR. Continue NPH on scale and increase for increase in prednisone dose. 09/03/18 * 83 yo F with T2DM admitted with bacteremia 2nd infected pacemaker. Poor glycemic control while inpatient likely 2nd surgical stress, stress-dose steroids (for home prednisone 10 mg po daily), and significant infection * Insulin drip discontinued yesterday at ~1800 and BSG's have remained in or near goal range, ranging 128-143 mg/dL since discontinuation * Steroids changed from hydrocortisone and tapered to home prednisone dose - will cut basal insulin dose by 50% and will switch from Lantus to NPH 2nd similar pharmacokinetics to prednisone's hyperglycemic effects * Will loosen Novolog parameters 2nd steroid taper and slight decrease in BSG from breakfast to lunch, to weight-based moderate stress estimate PLAN FOR INPATIENT GLYCEMIC CONTROL: * Holding outpatient oral diabetes medications * INCREASE Basal insulin:NPH qAM based on BSG: * Hold for BSG less than 100 mg/dL * 12 units for BSG 100-140 mg/dL * 18 units for BSG greater than 140 mg/dL * Bolus insulin * NovoLog per scale ACHS * Goal range: 120-160 mg/dL * tighten: Correction factor: 30 mg/dL/unit * tighten: Carb ratio: 10g CHO/unit PLAN FOR DISCHARGE: * Continue metformin * Per ICU rounds discussion - despite HbA1c of 7.1%, patient may also benefit from initiation of outpatient insulin to help further prevent diabetic complications (significant infection/bacteremia). If so, would recommend insulin NPH once daily with breakfast/prednisone. Would be very cautious with initial dose to help decrease risk for hypoglycemia and titrate depending on trend in BSG.
--- NOTE | 2018-09-04 18:50 | Infectious Disease Progress Nt ---
Date of Service September 04, 2018 Assessment & Plan (1) Infection of pacemaker pocket: Patient with infected pacemaker pocket with MSSA bacteremia with staph aureus and Pseudomonas growing in pacemaker pocket. Patient to continue on IV cefepime, will likely require prolonged IV antibiotics. Will follow. (2) Bacteremia due to methicillin susceptible Staphylococcus aureus (MSSA): (3) Infection due to gram-negative anaerobic organism: Subjective Patient seen in follow-up for sepsis with pacemaker pocket infection. Feeling slightly better today. Less short of breath. Remains afebrile. Cultures growing staph and Pseudomonas. Now on cefepime. Review of Systems Review of Systems: All systems reviewed & are unremarkable except as noted in HPI & below Physical Exam Constitutional: WD/WN, vitals as above comfortable; no acute distress Eyes: PERRL, conjunctivae normal, anicteric sclerae ENMT: external ear and nose normal, oropharynx normal Neck: trachea midline, no thyromegaly neck nontender Respiratory: normal respiratory effort, lungs clear to auscultation normal percussion; no respiratory distress and does not use accessory muscles Cardiovascular: Rate/Rhythm: regular rate and regular rhythm Heart Sounds: normal S1 and normal S2; no gallop, no murmur and no cardiac rub Vessels: normal peripheral pulses; no JVD Gastrointestinal (Abdomen): normal bowel sounds, soft, nontender, no hepatosplenomegaly Musculoskeletal: no cyanosis or clubbing, extremities motor strength 5/5 Spine: thoracic spine normal to inspection and lumbar spine normal to inspection; no cervical spinal tenderness Skin: no rashes, warm and dry normal turgor and + wound (Pacemaker pocket with erythema drainage); no rashes Neurologic: patellar DTR's 2+ bilat, sensation intact moves all extremities and awake; no focal motor deficits Motor/Sensory: no sensory deficit Psychiatric: A+Ox3, euthymic affect Orientation: cooperative Lymphatic: no cervical or axillary lymphadenopathy no inguinal lymphadenopathy Results & Data Vital Signs (Past 12 Hours) Vital Signs Temp Pulse Pulse Resp BP BP Pulse Ox 09/04/18 17:51 37.0 C 63 16 155/65 H 97 09/04/18 17:01 65 19 96 09/04/18 17:00 64 27 H 156/79 H 96 09/04/18 16:01 61 19 95 09/04/18 16:00 36.8 C 62 24 175/83 H 97 09/04/18 15:01 62 17 97 09/04/18 15:00 62 23 155/88 H 97 09/04/18 14:36 61 18 96 09/04/18 14:01 60 24 97 09/04/18 14:00 62 22 155/78 H 97 09/04/18 13:30 66 24 95 09/04/18 13:01 65 23 96 09/04/18 13:00 65 20 161/84 H 95 09/04/18 12:30 65 17 95 09/04/18 12:01 66 32 H 95 09/04/18 12:00 64 26 H 179/74 H 94 09/04/18 11:30 67 19 93 09/04/18 11:01 64 20 96 09/04/18 11:00 59 L 17 181/76 H 95 09/04/18 10:30 58 L 28 H 96 09/04/18 10:01 60 28 H 95 09/04/18 10:00 60 27 H 177/73 H 94 09/04/18 09:30 60 28 H 94 09/04/18 09:01 62 24 94 09/04/18 09:00 62 24 178/76 H 94 09/04/18 08:53 71 26 H 155/74 H 93 09/04/18 08:51 66 27 H 154/105 H 91 09/04/18 08:30 65 24 95 09/04/18 08:01 67 18 94 09/04/18 08:00 36.8 C 65 25 H 168/88 H 94 09/04/18 07:30 67 21 96 09/04/18 07:21 54 L 18 99 09/04/18 07:01 61 32 H 99 09/04/18 07:00 58 L 21 174/80 H 98 Laboratory Results Laboratory Results - last 48 hr 09/02/18 09/03/18 09/03/18 20:51 00:04 04:16 Sodium Potassium Chloride Carbon Dioxide Anion Gap BUN Creatinine Est Cr Clr Drug Dosing Est GFR ( Amer) Est GFR (Non-Af Amer) BUN/Creatinine Ratio Glucose POC Glucose 128 H 135 H 143 H Calcium Stl C. diff Tox B Gene 09/03/18 09/03/18 09/03/18 04:19 07:48 09:00 Sodium 137 Potassium 3.8 Chloride 102 Carbon Dioxide 28 Anion Gap 7.0 BUN 14 Creatinine 0.81 Est Cr Clr Drug Dosing 56.8 Est GFR ( Amer) 78.9 Est GFR (Non-Af Amer) 68.1 BUN/Creatinine Ratio 16.8 Glucose 142 H POC Glucose 132 H Calcium 8.6 Stl C. diff Tox B Gene Negative Cdiff Gene 09/03/18 09/03/18 09/03/18 11:40 12:54 16:16 Sodium Potassium Chloride Carbon Dioxide Anion Gap BUN Creatinine Est Cr Clr Drug Dosing Est GFR ( Amer) Est GFR (Non-Af Amer) BUN/Creatinine Ratio Glucose POC Glucose 107 H 143 H 174 H Calcium Stl C. diff Tox B Gene 09/03/18 09/04/18 09/04/18 21:18 07:24 11:27 Sodium Potassium Chloride Carbon Dioxide Anion Gap BUN Creatinine Est Cr Clr Drug Dosing Est GFR ( Amer) Est GFR (Non-Af Amer) BUN/Creatinine Ratio Glucose POC Glucose 170 H 192 H 198 H Calcium Stl C. diff Tox B Gene 09/04/18 09/04/18 16:22 17:55 Sodium Potassium Chloride Carbon Dioxide Anion Gap BUN Creatinine Est Cr Clr Drug Dosing Est GFR ( Amer) Est GFR (Non-Af Amer) BUN/Creatinine Ratio Glucose POC Glucose 191 H 267 H Calcium Stl C. diff Tox B Gene Diagnostic Findings Microbiology 09/02/18 08:20 Blood Aerobic Blood Culture - Preliminary No growth in Aerobic bottle after 48 hours. 09/02/18 08:20 Blood Anaerobic Blood Culture - Preliminary No growth in Anaerobic bottle after 48 hours. 09/02/18 08:08 Blood Aerobic Blood Culture - Preliminary No growth in Aerobic bottle after 48 hours. 09/02/18 08:08 Blood Anaerobic Blood Culture - Preliminary No growth in Anaerobic bottle after 48 hours. 08/31/18 Unknown Chest Gram Stain - Final 08/31/18 Unknown Chest Wound Culture - Final Pseudomonas aeruginosa Staphylococcus aureus 08/30/18 23:59 Blood Aerobic Blood Culture - Final Staphylococcus aureus 08/30/18 23:59 Blood Anaerobic Blood Culture - Final Staphylococcus aureus 08/30/18 23:55 Blood Aerobic Blood Culture - Final Staphylococcus aureus 08/30/18 23:55 Blood Anaerobic Blood Culture - Final Staphylococcus aureus
[2018-09-04] MEDS: ARTIFICIAL TEARS OP SCH (20:15)
[2018-09-04] MEDS: ACETAMINOPHEN 325 MG TAB PO PRN (21:25)
[2018-09-05] MEDS: IPRATROPIUM BROMIDE NEB SOLN 0.02% 2.5 ML VIAL INH SCH ×4 (01:36→19:11)
[2018-09-05] MEDS: LEVALBUTEROL HCL 0.63 MG/3 ML NEB NEB SCH ×4 (01:36→19:11)
[2018-09-05] MEDS: LEVOTHYROXINE SODIUM 50 MCG TABLET PO SCH (05:33)
[2018-09-05 06:37] LABS: Hematocrit (blood only) 31.5 % (37-47); Hemoglobin 10.5 g/dL (12.0-16.0); Mean Corpuscular Hgb Conc 33.3 g/dL (32-36); Mean Corpuscular Volume 97.2 fL (80-100); Mean Platelet Volume 10.3 fL (7.4-10.4); Platelet Count 229 K/uL (130-400); RDW Coefficient of Variation 13.2 % (11.5-14.5); Red Blood Count 3.24 M/uL (4.2-5.4); White Blood Count 12.02 K/uL (4.8-10.8)
[2018-09-05 07:13] LABS: Creatinine Clr Calc Pharmacy 74.7 ml/min; Est GFR (African American) 98.5
[2018-09-05] MEDS: FLUTICASONE/SALMETEROL 100/50 (ADVAIR) 14 PUFF/1 INHALER INH SCH ×2 (07:55→20:53)
[2018-09-05] MEDS: ROSUVASTATIN CALCIUM 10 MG TAB PO SCH (07:55)
[2018-09-05] MEDS: ENOXAPARIN INJ 40 MG/0.4 ML SYR SQ SCH (07:56)
[2018-09-05] MEDS: CEROVITE ADV FORMULA TAB PO SCH (07:56)
[2018-09-05] MEDS: ERYTHROMYCIN OP OINT 5 MG/GM 3.5 GM TUBE OP SCH ×4 (07:56→20:53)
[2018-09-05] MEDS: PANTOprazole 40 MG TAB PO SCH (07:56)
[2018-09-05] MEDS: AMLODIPINE BESYLATE 5 MG TAB PO SCH (07:57)
[2018-09-05] MEDS: INSULIN HUMAN NPH SC SCH (07:57)
[2018-09-05] MEDS: predniSONE 20 MG TAB PO SCH ×2 (07:57→08:30)
[2018-09-05] MEDS: INSULIN ASPART 100 UNITS/ML 3 ML PEN SC SCH ×4 (07:58→20:57)
[2018-09-05] MEDS ORDERED: XOPENEX/ATROVENT 1.25mg/0.5MG NEB COMBO NEB STA (08:12)
[2018-09-05] MEDS ORDERED: methylPREDNISolone 125 MG/2 ML VIAL IV STA (08:12)
[2018-09-05] MEDS ORDERED: IPRATROPIUM BROMIDE NEB SOLN 0.02% 2.5 ML VIAL INH SCH (08:15)
[2018-09-05] MEDS: LEVALBUTEROL 1.25MG/0.5ML NEB INH SCH ×2 (08:25→08:28)
--- NOTE | 2018-09-05 08:33 | Hospitalist Progress Note ---
Date of Service September 05, 2018 Assessment & Plan (1) Sepsis: Secondary to pacemaker site infection, bacteremia hx SSS sp recent PPM Immunocompromised patient Hx Sjogren's syndrome on chronic steroid Rx s/Post removal of pacemaker Wound culture: Positive for Pseudomonas and MSSA Blood cultures: Positive for MSSA cefepime IV ID on board Hydrocortisone stress dose ordered initally in light of patient's chronic prednisone use Interstitial lung disease History of Sjogren's syndrome with lung involvement Acute on Chronic Hypoxic Respiratory Failure On chronic prednisone 5 mg p.o. daily - dyspnea worse today hypoxic on 2 L this AM - repeat CXR, ABG, D dimer ordered - Solumedrol 60mg IV STAT Nebs STAT - Dr. Delong Shipping Technician consulted Monitor closely, may need a neurologist evaluation without improvement by tomorrow morning Hypertension Amlodipine increased to 10 mg p.o. daily for better BP control monitor BP DM2 ISS DVT prophylaxis. Lovenox subcu Full code Disposition Pending DVT prophylaxis. Lovenox subcu Full code Subjective ff up for pacemaker insertion site notified by RN Brii, O2 sats in the 70s% with 2 L nasal cannula seen sitting up in bed, tachypneic but not in distress states she has been having progressive dyspnea overnight no cough, sputum, chills, chest pain, palpitations denies other symptoms Review of Systems Review of Systems: All systems reviewed & are unremarkable except as noted in HPI & below Physical Exam Physical Exam: General- oriented x 3, not in distress, speaks in sentences with mild effort and accessory muscle use Eyes- anicteric Neck- no JVD Lungs- (+) scattered rales bilaterally no wheezing Heart- normal rate, regular rhythm; no murmurs Pacemaker site- no bleeding, discharge Abdomen- normal bowel sounds, nondistended, soft, nontender Extremities- no pretibial edema, no calf tenderness Neuro- alert, oriented x 3; no gross focal neurologic deficits Skin- warm & dry Results & Data Vital Signs (Past 12 Hours) Vital Signs Temp Pulse Pulse Resp BP Pulse Ox 09/05/18 07:08 36.8 C 59 L 18 177/73 H 100 09/05/18 06:58 60 18 93 09/05/18 03:31 36.6 C 58 L 16 162/74 H 98 09/05/18 01:38 59 L 16 97 09/04/18 22:59 36.8 C 57 L 60 21 170/78 H 96 Laboratory Results Laboratory Results - last 24 hr 09/04/18 09/04/18 09/04/18 11:27 16:22 17:55 WBC RBC Hgb Hct MCV MCH MCHC RDW Std Deviation RDW Coeff of Gabriel Plt Count MPV Creatinine Est Cr Clr Drug Dosing Est GFR ( Amer) Est GFR (Non-Af Amer) POC Glucose 198 H 191 H 267 H 09/04/18 09/05/18 09/05/18 20:07 06:01 06:01 WBC 12.02 H RBC 3.24 L Hgb 10.5 L Hct 31.5 L MCV 97.2 MCH 32.4 MCHC 33.3 RDW Std Deviation 46.0 RDW Coeff of Gabriel 13.2 Plt Count 229 MPV 10.3 Creatinine 0.61 Est Cr Clr Drug Dosing 74.7 Est GFR ( Amer) 98.5 Est GFR (Non-Af Amer) 85.0 POC Glucose 231 H 09/05/18 07:06 WBC RBC Hgb Hct MCV MCH MCHC RDW Std Deviation RDW Coeff of Gabriel Plt Count MPV Creatinine Est Cr Clr Drug Dosing Est GFR ( Amer) Est GFR (Non-Af Amer) POC Glucose 98
--- NOTE | 2018-09-05 08:36 | XRay Report ---
XR chest 1V portable CLINICAL HISTORY: hypoxia dyspnea COMPARISON STUDY: 09/03/2018 FINDINGS: Stable findings of mild pulmonary edematous change. Mild chronic elevation right hemidiaphr agm. Minimal cardiac enlargement considered unchanged. IMPRESSION: Stable findings of mild pulmonary edema. The above report was generated using voice recognition software. It may contain grammatical, syntax or spelling errors. Electronically signed by: Franklin Randle M.D. 09/05/2018 8:33 AM
[2018-09-05] MEDS: CEFEPIME 2,000 MG in SYRINGE 7.5 ML IV SCH ×2 (08:42→20:54)
[2018-09-05] MEDS ORDERED: methylPREDNISolone 60 MG in SYRINGE 0 ML IV ONE (09:00)
[2018-09-05] MEDS ORDERED: INSULIN HUMAN NPH SC ONE (09:00)
[2018-09-05 10:06] LABS: D Dimer 1210 ug/L FEU (0-500)
[2018-09-05 10:09] LABS: Allen Test Pos (Pos); Base Excess ABG 5.8 mEq/L (-9-1.8); HCO3 ABG 30 mmol/L (19-24); PCO2 ABG 40 mmHg (35-46); PO2 ABG 77 mm/Hg (80-95); pH ABG 7.49 (7.35-7.45)
[2018-09-05] MEDS ORDERED: OPTIRAY 320 125ml IV PRN (10:44)
--- NOTE | 2018-09-05 10:57 | CT Scan Report ---
CT angio chest PE protocol CT DOSE: 311.96 mGy.cm HISTORY: Chest pain PE TECHNIQUE: Multiaxial CT images of the chest were performed following the intravenous administration of contrast to evaluate the pulmonary arteries. Maximal intensity projection images were also obtaine d. A dose lowering technique was utilized adhering to the principles of ALARA. COMPARISON STUDY: 08/31/2018 FINDINGS: Central pulmonary vasculature is unremarkable. There are several small filling defects of t he third order vessels of the right lower lobe distribution. All additional and main pulmonary arterial vasculature structures enhance appropriately. There are small bilateral pleural effusions. There are findings of moderately progressive pulmonary e dematous type change versus respiratory distress syndrome. Thoracic aorta shows no evidence for dilat ation or dissection. Limited evaluation of the upper abdomen confirms gallstones within the gallbladder. IMPRESSION: 1. Study is positive for several small third order emboli involving the right lower lobe arterial dis tribution. 2. No evidence for major central pulmonary embolus. 3. Findings of progressive pulmonary edematous change versus respiratory distress syndrome. 4. Small bilateral pleural effusions. 5. Gallstone filled gallbladder. The above report was generated using voice recognition software. It may contain grammatical, syntax or spelling errors. Electronically signed by: Franklin Randle M.D. 09/05/2018 10:56 AM
--- NOTE | 2018-09-05 11:29 | Ultrasound Report ---
US venous doppler LE BI HISTORY: Pain. Edema. r/o dvt COMPARISON STUDY: None. FINDINGS: There is normal compressibility, flow, and augmentation within the bilateral lower extremit y deep venous systems. IMPRESSION: No DVT within the right or left lower extremity. The above report was generated using voice recognition software. It may contain grammatical, syntax or spelling errors. Electronically signed by: Franklin Randle M.D. 09/05/2018 11:27 AM
--- NOTE | 2018-09-05 12:14 | Pharmacy Report ---
Pharmacy Glycemic Short Note 2 - Date of Service September 05, 2018 - Glycemic Short BSG Results (Last 24 hours): 09/04/18 09/04/18 09/04/18 16:22 17:55 20:07 POC Glucose 191 H 267 H 231 H 09/05/18 09/05/18 07:06 11:33 POC Glucose 98 164 H Outpatient Anti-diabetic Regimen: * Metformin 500 mg po BID * Note: also on prednisone 10 mg po daily * A1c = 7.1% on 09/02/18 Risk Factors for Insulin Resistance: * Steroids: tapered to home dose of prednisone 10 mg daily 09/03, then increased and started 40mg PO daily 09/03 evening - then pt had Prednisone 40mg + Solu- medrol 60mg IV this morning * Infection: MSSA bacteremia 2nd infected pacemaker with MSSA and Pseudomonas isolated from chest culture. On cefepime. * Recent Surgery: POD 4 s/p removal of infected pacemaker * Diet: T2DM ASSESSMENT: 09/05/18 * Patient received Solu-medrol 60mg IV x1 this morning (in addition to 40mg PO prednisone) for worsening dyspnea, repeat CXR, ABG, D dimer ordered, Dr. Delong Nurse Clinical consulted. * Gave NPH with Solu-medrol, will continue orders for tomorrow for prednisone. * Fasting BSG 98mg/dl, continue orders otherwise. 09/04/18 * Prednisone increased last night to 40mg daily, started last night, tighten CF and CR. Continue NPH on scale and increase for increase in prednisone dose. 09/03/18 * 83 yo F with T2DM admitted with bacteremia 2nd infected pacemaker. Poor glycemic control while inpatient likely 2nd surgical stress, stress-dose steroids (for home prednisone 10 mg po daily), and significant infection * Insulin drip discontinued yesterday at ~1800 and BSG's have remained in or near goal range, ranging 128-143 mg/dL since discontinuation * Steroids changed from hydrocortisone and tapered to home prednisone dose - will cut basal insulin dose by 50% and will switch from Lantus to NPH 2nd similar pharmacokinetics to prednisone's hyperglycemic effects * Will loosen Novolog parameters 2nd steroid taper and slight decrease in BSG from breakfast to lunch, to weight-based moderate stress estimate PLAN FOR INPATIENT GLYCEMIC CONTROL: * Holding outpatient oral diabetes medications * Basal insulin: NPH 18 units x 1 dose this morning with IV solumedrol and PO prednisone * NPH qAM based on BSG: * Hold for BSG less than 100 mg/dL * 12 units for BSG 100-140 mg/dL * 18 units for BSG greater than 140 mg/dL * Bolus insulin * NovoLog per scale ACHS * Goal range: 120-160 mg/dL * Correction factor: 30 mg/dL/unit * Carb ratio: 10g CHO/unit PLAN FOR DISCHARGE: * Continue metformin * Per ICU rounds discussion - despite HbA1c of 7.1%, patient may also benefit from initiation of outpatient insulin to help further prevent diabetic complications (significant infection/bacteremia). If so, would recommend insulin NPH once daily with breakfast/prednisone. Would be very cautious with initial dose to help decrease risk for hypoglycemia and titrate depending on trend in BSG.
--- NOTE | 2018-09-05 14:42 | Cardiology Progress Note ---
Date of Service September 05, 2018 Assessment & Plan (1) Pulmonary embolus: (2) Bacteremia due to methicillin susceptible Staphylococcus aureus (MSSA): (3) Mobitz type 2 second degree atrioventricular block: (4) Infection of pacemaker pocket: (5) Interstitial lung disease: 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 Pacemaker extracted 09/01/2018 without complication. Remains sinus rhythm/tachycardia with 2-1 AV block on telemetry. Blood pressure remains hypertensive. Amlodipine titrated to 10 mg daily yesterday. Consider addition of low-dose lisinopril tomorrow. Repeat blood cultures drawn 09/02/2018 with no growth x 48 hours. No indication for temporary transvenous pacer at this time. Beta-renu will remain on hold. Tentative plan for permanent pacemaker implantation after blood cultures have cleared and patient has received adequate antibiotic treatment per guidance of infectious disease specialist. IV anticoagulation per direction of pulmonary medicine. Subjective Patient seen and examined at the bedside. Mildly progressive dyspnea noted. CT Roseann Chou of the chest performed demonstrating small right-sided pulmonary embolus. She has been evaluated by pulmonary medicine. IV anticoagulation prescribed. Blood pressure remains elevated. Denies chest pain. No fevers overnight. Repeat blood cultures negative greater than 48 hours. Review of Systems Review of Systems: All systems reviewed & are unremarkable except as noted in HPI & below Physical Exam Physical Exam: General: NAD, AAO x3, well nourished. HEENT: Normocephalic. Atraumatic. Conjunctiva pink, no scleral icterus. Neck: No carotid bruits, the carotid upstrokes are brisk. No JVD. No HJR. Chest: Left-sided pacemaker site dressing clean, dry, intact. No erythema or drainage. Heart: Regular borderline tachycardic, normal S-1 and S-2 no S-3 or S-4 gallop. No murmurs or rub appreciated. PMI is not displaced. No RV heave. Lungs: + Dry crackles bilateral. No rhonchi. Mild end expiratory wheezing. Abdomen: Normal bowel sounds. Soft. Nontender. No masses or organomegaly. No abdominal bruits. Extremities: No clubbing, cyanosis, or edema. Pulses: radial=2/4, Dorsalis pedis =2/4, posterior tibial=2/4. Neuro: Cranial nerves grossly intact. No focal motor deficit. Results & Data Vital Signs (Past 12 Hours) Vital Signs Temp Pulse Resp BP Pulse Ox 09/05/18 14:27 59 L 18 96 09/05/18 08:28 67 22 98 09/05/18 07:08 36.8 C 59 L 18 177/73 H 100 09/05/18 06:58 60 18 93 09/05/18 03:31 36.6 C 58 L 16 162/74 H 98 (1) Pulmonary embolus Acute cor pulmonale presence: without acute cor pulmonale Chronicity: acute Pulmonary embolism type: unspecified Qualified Code(s): I26.99 - Other pulmonary embolism without acute cor pulmonale
[2018-09-05 15:22] LABS: INR 1.1 (0.9-1.1); Partial Thromboplastin Ratio 0.9; Partial Thromboplastin Time 24.2 Seconds (21.0-31.0); Prothrombin Time 11.1 Seconds (9.0-12.0)
[2018-09-05] MEDS: Heparin Adult STANDARD Wt-Based Dextrose 5% 25,000 units/500 mL IV SCH (15:37)
[2018-09-05] MEDS: ARTIFICIAL TEARS OP SCH (20:53)
[2018-09-05 22:36] LABS: Partial Thromboplastin Ratio 1.9
[2018-09-05 22:39] LABS: Partial Thromboplastin Time 52.1 Seconds (21.0-31.0)
--- NOTE | 2018-09-05 23:49 | Consultation Report ---
DATE OF CONSULTATION: 09/05/2018 DATE OF CONSULTATION: 09/05/2018 TIME: 2:00 p.m. REPORT OF CONSULTATION: The patient was seen in room 207. She is an 83-year-old female who is being seen because of increasing shortness of breath. The patient has an extensive history. Earlier this month, she was found to have heart block. She had a pacemaker inserted on 08/18/2018. She was discharged on 08/19/2018. She presented to the Emergency Room on 08/30/2018 with multiple complaints. She was complaining that she was very sick. She had nausea. Her stomach bothered her. She had crampy pain. At that time, she was not noticing any significant worsening of her typical shortness of breath. There was a finding of some drainage from the pacemaker insertion site. She was ultimately found to have a pacemaker infection. The pacemaker was removed on the . Prior to that removal, a transesophageal echo was done. She has been getting antibiotic therapy through the infectious disease department. She is growing Staph aureus from 2 separate blood cultures. The staph is methicillin sensitive. She also is growing pseudomonas from the wound culture. Staph aureus is also growing from the wound. Thus, she has been on therapy for these infections. Today, she has had increasing shortness of breath. Nursing reported that her saturations were in the 70s on 2 liters. The patient has a history of breathing problems related to Sjogren's syndrome with lung involvement. She has been on long-term prednisone. She states that she follows with Dr. Casillas. In the past, they had tried Plaquenil and Imuran. She states she had significant side effects with both of these medicines. The patient is very sensitive to a lot of different medications based upon her allergy list. She has tolerated the prednisone overall well. She is followed in the pulmonary offices. She previously for several years was seeing Dr. Del Rosario, then Dr. Chavarria, and most recently Sandra Braden PA-C. The patient in fact had pulmonary functions done earlier this spring that shows a severe restrictive pattern with a diffusion capacity of only 36%. It is also thought that she has pulmonary hypertensions. Earlier today because of the shortness of breath, the D-dimer was checked and it was significantly elevated at 1200. She then underwent a CT angio of the chest. This showed what appeared to be small pulmonary emboli in the right lower lobe. In addition, in the lung parenchyma, there are areas of patchy ground-glass changes. The radiologist reported possible pulmonary edema changes versus respiratory distress syndrome. She is followed by cardiology and I do not believe it is thought that she has acute pulmonary edema. The patient is coughing fairly frequently. She relates that she did cough up a little bit of bloody mucus on 2 occasions yesterday. It was mixed with sputum. She is unable to lie flat. She has to have her head propped up. She denies any anterior chest pain. She does not seem to have pleuritic chest pain. She had fevers at the time of admission, but these have resolved. Her maximum temperature this hospital stay was 39.1. PAST SURGICAL HISTORY: 1. Appendectomy. 2. Tubal ligation. PAST MEDICAL HISTORY: 1. Diabetes. 2. GERD. 3. Chronic kidney disease. 4. Sjogren syndrome with pulmonary involvement. 5. Osteoporosis. 6. Pulmonary hypertension. 7. Hyperlipidemia. 8. Sick sinus syndrome. SOCIAL HISTORY: Tobacco never. ETOH -- very little. ALLERGIES: NUMEROUS ALLERGIES INCLUDING SULFA, LATEX, NIACIN, CIPRO, METRONIDAZOLE, NAPROXEN. Several of these may be side effects rather than true allergies. FAMILY HISTORY: Positive for heart disease, bladder cancer, stroke, dementia. REVIEW OF SYSTEMS: The patient's energy level is poor. She does live with her son, although he is at work during the day. She stays on one floor. Denies any nasal symptoms at present. Appetite has been diminished. Denies change in weight. The remainder of the review of systems is negative except as noted above. Ten systems reviewed. PHYSICAL EXAMINATION: VITAL SIGNS: The patient is an 83-year-old female who was anxious. She was cooperative, alert and oriented. Temperature currently 36.8. Voice is husky. HEENT: Pupils were reactive to light. Nares clear. Mouth exam unremarkable. NECK: Palpation of the neck reveals no lymph nodes. CARDIAC: Rate 67. The rhythm was regular. Blood pressure 177/73. LUNGS: Lung andrea reveal diffuse rales posteriorly, bilaterally and anteriorly in the upper lung andrea. Respiratory rate 22. She was now on nasal cannula with saturation in the mid 90s. Previously, she was on 6 liters OxyMask with saturation 98%. As noted, she had desaturated earlier today. ABDOMEN: Soft. Bowel sounds were present. There was no tenderness to palpation or definite mass. EXTREMITIES: Showed no cyanosis, clubbing or edema. LABORATORY DATA: CBC shows a white count of 12.02. Hemoglobin 10.5. Platelets 229,000. Her maximum WBC count this hospital stay was 17.94. Blood gas today showed pH 7.49, pCO2 of 40, pO2 of 77 on 5 liters of oxygen. Electrolytes on the showed sodium 137, potassium 3.8, chloride 102, bicarbonate 28. BUN 14 with creatinine 0.81. Creatinine today was 0.61. ProBNP on the was 946. This would be within the limits of normal. Liver functions were normal. IMPRESSION: 1. Acute respiratory failure with hypoxia. 2. Pulmonary embolism -- small. 3. Sjogren's disease with pulmonary involvement. 4. Pulmonary hypertension. 5. Severe restrictive lung disease. COMMENTS AND RECOMMENDATIONS: The patient is recovering from the infection. This seems to be controlled. The sepsis could put her at risk for ARDS. There were some suggestions of parenchymal changes on CAT scan. I do not believe we can assume that is the case at present, but she will need close observation in that respect. It is difficult to follow her x-rays because I believe her CAT scan is markedly abnormal in part due to the Sjogren's itself. However, my review with comparison of the CAT scan done on 08/31/2018 would suggest that the most recent scan on the shows increased parenchymal findings which would be acute and are especially noticeable in the upper lung andrea. RECOMMENDATIONS: 1. I believe under the circumstances of her illness, even though the pulmonary emboli seem to be small, I feel she should be treated with anticoagulation therapy at least initially. 2. She has been started on prednisone 40 mg daily. If her shortness of breath worsens, would consider giving her IV methylprednisolone. 3. The patient has been on Advair and would continue that. 4. Would continue the neb treatments with levalbuterol. 5. Would do serial x-rays if her symptoms progress to rule out evolving ARDS.
[2018-09-06] MEDS: LEVALBUTEROL HCL 0.63 MG/3 ML NEB NEB SCH ×4 (01:36→19:10)
[2018-09-06] MEDS: IPRATROPIUM BROMIDE NEB SOLN 0.02% 2.5 ML VIAL INH SCH ×4 (01:36→19:10)
[2018-09-06] MEDS: ACETAMINOPHEN 325 MG TAB PO PRN (02:07)
[2018-09-06] MEDS: LEVOTHYROXINE SODIUM 50 MCG TABLET PO SCH (05:20)
[2018-09-06 07:00] LABS: Partial Thromboplastin Ratio 2.6
[2018-09-06 07:03] LABS: Partial Thromboplastin Time 70.6 Seconds (21.0-31.0)
[2018-09-06] MEDS: INSULIN ASPART 100 UNITS/ML 3 ML PEN SC SCH ×4 (08:47→20:47)
[2018-09-06] MEDS: ROSUVASTATIN CALCIUM 10 MG TAB PO SCH (08:47)
[2018-09-06] MEDS: FLUTICASONE/SALMETEROL 100/50 (ADVAIR) 14 PUFF/1 INHALER INH SCH ×2 (08:47→20:46)
[2018-09-06] MEDS: ERYTHROMYCIN OP OINT 5 MG/GM 3.5 GM TUBE OP SCH ×4 (08:52→20:48)
[2018-09-06] MEDS: CEFEPIME 2,000 MG in SYRINGE 7.5 ML IV SCH ×2 (08:53→20:52)
[2018-09-06] MEDS: INSULIN HUMAN NPH SC SCH (08:54)
[2018-09-06] MEDS: predniSONE 20 MG TAB PO SCH (08:54)
[2018-09-06] MEDS: CEROVITE ADV FORMULA TAB PO SCH (08:55)
[2018-09-06] MEDS: AMLODIPINE BESYLATE 5 MG TAB PO SCH (08:55)
[2018-09-06] MEDS: PANTOprazole 40 MG TAB PO SCH (08:55)
[2018-09-06] MEDS: Heparin Adult STANDARD Wt-Based Dextrose 5% 25,000 units/500 mL IV SCH (09:36)
[2018-09-06 11:34] LABS: BUN Creatinine Ratio 19.3 (10-20); Calcium 8.5 mg/dl (8.5-10.1); Creatinine Clr Calc Pharmacy 70.6 ml/min; Est GFR (Non-African American) 82.8; Potassium 3.2 mmol/L (3.5-5.1)
[2018-09-06] MEDS: LISINOPRIL 5 MG TAB PO SCH (13:02)
--- NOTE | 2018-09-06 13:17 | Cardiology Progress Note ---
Date of Service September 06, 2018 Assessment & Plan (1) Pulmonary embolus: (2) Bacteremia due to methicillin susceptible Staphylococcus aureus (MSSA): (3) Mobitz type 2 second degree atrioventricular block: (4) Infection of pacemaker pocket: (5) Interstitial lung disease: 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 Pacemaker extracted 09/01/2018 without complication. Remains sinus rhythm/tachycardia with 2-1 AV block on telemetry. Blood pressure remains hypertensive. Amlodipine titrated to 10 mg daily during hospitalization. Add lisinopril 5 mg daily. Repeat blood cultures drawn 09/02/2018 with no growth x 72 hours. No indication for temporary transvenous pacer at this time. Beta-renu will remain on hold. Tentative plan for permanent pacemaker implantation after blood cultures have cleared and patient has received adequate antibiotic treatment per guidance of infectious disease specialist. IV anticoagulation per direction of pulmonary medicine. Subjective Patient seen and examined at the bedside. Shortness of breath mildly improved. Diagnosed with small right lower lobe pulmonary embolus. IV heparin initiated. Blood pressure remains elevated. No fevers or chills. Repeat blood cultures negative. Remains in 2-1 AV block on telemetry. Review of Systems Review of Systems: All systems reviewed & are unremarkable except as noted in HPI & below Physical Exam Physical Exam: General: NAD, AAO x3, well nourished. HEENT: Normocephalic. Atraumatic. Conjunctiva pink, no scleral icterus. Neck: No carotid bruits, the carotid upstrokes are brisk. No JVD. No HJR. Chest: Left-sided pacemaker site dressing clean, dry, intact. No erythema or drainage. Heart: Regular borderline tachycardic, normal S-1 and S-2 no S-3 or S-4 gallop. No murmurs or rub appreciated. PMI is not displaced. No RV heave. Lungs: + Dry crackles bilateral. No rhonchi. Mild end expiratory wheezing. Abdomen: Normal bowel sounds. Soft. Nontender. No masses or organomegaly. No abdominal bruits. Extremities: No clubbing, cyanosis, or edema. Pulses: radial=2/4, Dorsalis pedis =2/4, posterior tibial=2/4. Neuro: Cranial nerves grossly intact. No focal motor deficit. Results & Data Vital Signs (Past 12 Hours) Vital Signs Temp Pulse Pulse Pulse Resp BP BP 09/06/18 12:23 158/66 H 09/06/18 11:20 36.6 C 59 L 16 170/72 H 09/06/18 08:00 63 09/06/18 07:50 148/67 H 09/06/18 07:20 36.6 C 60 20 176/75 H 09/06/18 07:05 66 16 09/06/18 04:06 36.6 C 59 L 19 176/78 H 09/06/18 01:37 62 20 Pulse Ox 09/06/18 12:23 09/06/18 11:20 92 09/06/18 08:00 09/06/18 07:50 09/06/18 07:20 99 09/06/18 07:05 98 09/06/18 04:06 96 09/06/18 01:37 91 Laboratory Results Laboratory Results - last 24 hr 09/05/18 09/05/18 09/05/18 09:22 16:10 20:08 PT 11.1 INR 1.1 APTT 24.2 PTT Ratio 0.9 Sodium Potassium Chloride Carbon Dioxide Anion Gap BUN Creatinine Est Cr Clr Drug Dosing Est GFR ( Amer) Est GFR (Non-Af Amer) BUN/Creatinine Ratio Glucose POC Glucose 185 H 240 H Calcium 09/05/18 09/06/18 09/06/18 21:59 06:17 06:19 PT INR APTT 52.1 H* 70.6 H* PTT Ratio 1.9 2.6 Sodium 136 Potassium 3.2 L Chloride 94 L Carbon Dioxide 35 H Anion Gap 7.0 BUN 13 Creatinine 0.66 Est Cr Clr Drug Dosing 70.6 Est GFR ( Amer) 96.0 Est GFR (Non-Af Amer) 82.8 BUN/Creatinine Ratio 19.3 Glucose 123 H POC Glucose Calcium 8.5 09/06/18 09/06/18 07:15 11:18 PT INR APTT PTT Ratio Sodium Potassium Chloride Carbon Dioxide Anion Gap BUN Creatinine Est Cr Clr Drug Dosing Est GFR ( Amer) Est GFR (Non-Af Amer) BUN/Creatinine Ratio Glucose POC Glucose 121 H 119 H Calcium (1) Pulmonary embolus Acute cor pulmonale presence: without acute cor pulmonale Chronicity: acute Pulmonary embolism type: unspecified Qualified Code(s): I26.99 - Other pulmonary embolism without acute cor pulmonale
--- NOTE | 2018-09-06 14:00 | Pharmacy Report ---
Pharmacy Glycemic Short Note 2 - Date of Service September 06, 2018 - Glycemic Short BSG Results (Last 24 hours): 09/05/18 09/05/18 09/06/18 16:10 20:08 06:19 Glucose 123 H POC Glucose 185 H 240 H 09/06/18 09/06/18 07:15 11:18 Glucose POC Glucose 121 H 119 H Outpatient Anti-diabetic Regimen: * Metformin 500 mg po BID * Note: also on prednisone 10 mg po daily * A1c = 7.1% on 09/02/18 Risk Factors for Insulin Resistance: * Steroids: tapered to home dose of prednisone 10 mg daily 09/03, then increased and started 40mg PO daily 09/03 evening - then pt had Prednisone 40mg + Solu- medrol 60mg IV this morning * Infection: MSSA bacteremia 2nd infected pacemaker with MSSA and Pseudomonas isolated from chest culture. On cefepime. * Recent Surgery: POD 4 s/p removal of infected pacemaker * Diet: T2DM ASSESSMENT: 09/06/18 * Transitioned to oral prednisone 40 mg today; received NPH per scale * Fasting this AM 121 * Patient has had elevated BSG at bedtime past two days, will consider tightening carb ratio with dinner 09/05/18 * Patient received Solu-medrol 60mg IV x1 this morning (in addition to 40mg PO prednisone) for worsening dyspnea, repeat CXR, ABG, D dimer ordered, Dr. Delong Exercise Specialist consulted. * Gave NPH with Solu-medrol, will continue orders for tomorrow for prednisone. * Fasting BSG 98mg/dl, continue orders otherwise. 09/04/18 * Prednisone increased last night to 40mg daily, started last night, tighten CF and CR. Continue NPH on scale and increase for increase in prednisone dose. 09/03/18 * 83 yo F with T2DM admitted with bacteremia 2nd infected pacemaker. Poor glycemic control while inpatient likely 2nd surgical stress, stress-dose steroids (for home prednisone 10 mg po daily), and significant infection * Insulin drip discontinued yesterday at ~1800 and BSG's have remained in or near goal range, ranging 128-143 mg/dL since discontinuation * Steroids changed from hydrocortisone and tapered to home prednisone dose - will cut basal insulin dose by 50% and will switch from Lantus to NPH 2nd similar pharmacokinetics to prednisone's hyperglycemic effects * Will loosen Novolog parameters 2nd steroid taper and slight decrease in BSG from breakfast to lunch, to weight-based moderate stress estimate PLAN FOR INPATIENT GLYCEMIC CONTROL: * Holding outpatient oral diabetes medications * Basal insulin: NPH 18 units x 1 dose this morning with IV solumedrol and PO prednisone * NPH qAM based on BSG: * Hold for BSG less than 100 mg/dL * 12 units for BSG 100-140 mg/dL * 18 units for BSG greater than 140 mg/dL * Bolus insulin * NovoLog per scale ACHS * Goal range: 120-160 mg/dL * Correction factor: 30 mg/dL/unit * Carb ratio: 10g CHO/unit PLAN FOR DISCHARGE: * Continue metformin * Per ICU rounds discussion - despite HbA1c of 7.1%, patient may also benefit from initiation of outpatient insulin to help further prevent diabetic complications (significant infection/bacteremia). If so, would recommend insulin NPH once daily with breakfast/prednisone. Would be very cautious with initial dose to help decrease risk for hypoglycemia and titrate depending on trend in BSG.
[2018-09-06 14:09] LABS: Partial Thromboplastin Ratio 2.1
[2018-09-06 14:15] LABS: Partial Thromboplastin Time 57.5 Seconds (21.0-31.0)
[2018-09-06] MEDS ORDERED: POTASSIUM CHLORIDE 20 MEQ TABCR PO STA (15:06)
[2018-09-06] MEDS ORDERED: FUROSEMIDE 40 MG/4 ML VIAL IV STA (15:06)
[2018-09-06] MEDS ORDERED: FUROSEMIDE 40 MG in SYRINGE 0 ML IV STA (15:10)
--- NOTE | 2018-09-06 15:11 | XRay Report ---
XR chest 1V portable CLINICAL HISTORY: Hypoxia. SOB COMPARISON STUDY: 09/05/2018 FINDINGS: The heart remains enlarged. There are persistent bilateral pulmonary airspace opacities. Th ere is persistent air density projected over the left scapular neck. IMPRESSION: Persistent cardiomegaly and bilateral interstitial opacities, likely representing pulmona ry edema although an interstitial inflammatory processes could appear similar. Persistent air density projected over the left scapular neck Electronically signed by: Roshan Stoll M.D. 09/06/2018 3:09 PM
--- NOTE | 2018-09-06 17:12 | Hospitalist Progress Note ---
Date of Service September 06, 2018 Assessment & Plan (1) Sepsis: Secondary to pacemaker site infection, bacteremia hx SSS sp recent PPM Immunocompromised patient Hx Sjogren's syndrome on chronic steroid Rx s/Post removal of pacemaker Wound culture: Positive for Pseudomonas and MSSA Blood cultures: Positive for MSSA cefepime IV ID on board Plans for pacemaker implantation per cardiology service and ID Hydrocortisone stress dose ordered initally in light of patient's chronic prednisone use Interstitial lung disease History of Sjogren's syndrome with lung involvement Acute on Chronic Hypoxic Respiratory Failure On chronic prednisone 5 mg p.o. daily - dyspnea and hypoxia worsened morning of September 05, 2018 -CT chest ordered: Positive for right lower lobe pulmonary emboli -Heparin IV started Dose of Solu-Medrol 60 mg IV given -Today oxygen supplement decreased, at 3 L of seen by nasal cannula On prednisone 40 mg p.o. daily Nebs every 6 hours Discussed with pulmonology service, recommending Lasix IV with potassium for possible component of volume overload Monitor closely Hypertension Amlodipine increased to 10 mg p.o. daily for better BP control Lisinopril added Monitor blood pressure DM2 ISS DVT prophylaxis. Lovenox subcu Full code Disposition Pending DVT prophylaxis. Lovenox subcu Full code Case discussed with patient and her daughter at the bedside, in detail All questions answered, they are understanding, comfortable, agreeable with the plan of Subjective Follow-up for pacemaker site infection, bacteremia, interstitial lung disease with hypoxia Seen sitting up in bed, not in distress, patient's daughter at the bedside States breathing is about the same as yesterday, intermittent cough, with clear mucus Denies chest pain, pain over the pacemaker site No bleeding, no other symptoms Review of Systems Review of Systems: All systems reviewed & are unremarkable except as noted in HPI & below Physical Exam Physical Exam: General- oriented x 3, not in distress, speaks in sentences with no effort or accessory muscle use Eyes- anicteric Neck- no JVD Lungs-positive scattered crackles bilaterally, improved compared to yesterday, no wheezing, good air entry bilaterally Heart- normal rate, regular rhythm; no murmurs Pacemaker site-incision healing well, no bleeding or discharge, no erythema/edema/warmth/tenderness Abdomen- normal bowel sounds, nondistended, soft, nontender Extremities-trace pretibial edema, no calf tenderness Neuro- alert, oriented x 3; no gross focal neurologic deficits Skin- warm & dry Results & Data Vital Signs (Past 12 Hours) Vital Signs Temp Pulse Pulse Resp BP BP Pulse Ox 09/06/18 15:48 36.4 C L 60 24 157/74 H 93 09/06/18 14:59 61 09/06/18 13:24 63 20 90 09/06/18 12:23 158/66 H 09/06/18 11:20 36.6 C 59 L 16 170/72 H 92 09/06/18 08:00 63 09/06/18 07:50 148/67 H 09/06/18 07:20 36.6 C 60 20 176/75 H 99 09/06/18 07:05 66 16 98 Laboratory Results Laboratory Results - last 24 hr 09/05/18 09/05/18 09/06/18 20:08 21:59 06:17 APTT 52.1 H* 70.6 H* PTT Ratio 1.9 2.6 Sodium Potassium Chloride Carbon Dioxide Anion Gap BUN Creatinine Est Cr Clr Drug Dosing Est GFR ( Amer) Est GFR (Non-Af Amer) BUN/Creatinine Ratio Glucose POC Glucose 240 H Calcium 09/06/18 09/06/18 09/06/18 06:19 07:15 11:18 APTT PTT Ratio Sodium 136 Potassium 3.2 L Chloride 94 L Carbon Dioxide 35 H Anion Gap 7.0 BUN 13 Creatinine 0.66 Est Cr Clr Drug Dosing 70.6 Est GFR ( Amer) 96.0 Est GFR (Non-Af Amer) 82.8 BUN/Creatinine Ratio 19.3 Glucose 123 H POC Glucose 121 H 119 H Calcium 8.5 09/06/18 09/06/18 13:15 16:32 APTT 57.5 H* PTT Ratio 2.1 Sodium Potassium Chloride Carbon Dioxide Anion Gap BUN Creatinine Est Cr Clr Drug Dosing Est GFR ( Amer) Est GFR (Non-Af Amer) BUN/Creatinine Ratio Glucose POC Glucose 148 H Calcium
--- NOTE | 2018-09-06 17:17 | Pulmonology Progress Note ---
Date of Service September 06, 2018 Assessment & Plan (1) Pulmonary embolus: Currently patient remains on IV Heparin and will be continued. Pulmonary embolism type: unspecified Chronicity: acute Acute cor pulmonale presence: without acute cor pulmonale Qualified Code(s): I26.99 - Other pulmonary embolism without acute cor pulmonale (2) Bacteremia due to methicillin susceptible Staphylococcus aureus (MSSA): Currently patient is on Cefepime and that will be continued. (3) Infection due to gram-negative anaerobic organism: On Cefepime and that will be continued. (4) Interstitial lung disease: Mostly related to the Sjogrens syndrome. Remains on PO Prednisone. (5) Mobitz type 2 second degree atrioventricular block: On Pacemaker. As per cardiology. (6) Infection of pacemaker pocket: On Broad spectrum IV antibiotics. (7) Sjogren's syndrome with lung involvement: On PO Prednisone. (8) Pulmonary hypertension: The patient was given 40 mg of IV LaSIX AND WILL ALSO CONTINUE WITH o2 TO MAINTAIN SATURATION OF 92 % AND ABOVE. Subjective The patient has been C/O more SOB and also O2 saturation is around 92 % on 2.5 L NC O2. Since she was staretd on IV Fluids , she feels that her ankles were swelling up and also some tightness in the chest. Bed side CXR was obtained. that did reveal more congestion and some pleural effusion. Patient seen and examined at the bedside. Shortness of breath mildly improved. Diagnosed with small right lower lobe pulmonary embolus. IV heparin initiated. Blood pressure remains elevated. No fevers or chills. Repeat blood cultures negative. Remains in 2-1 AV block on telemetry. Review of Systems Review of Systems: The patient is resting in the bed. As mentioned above, she has been more SOB with any exertion and some tightness in the chest. Minimal cough, no sputum or hemoptysis. Also denies any chest pain or N/Vomiting or the abdominal pain. Has swollen ankles. Physical Exam Physical Exam: Elderly female, lying in the bed and is not in any distress, except an exertional dyspnea. HEENT: The pupils are reactive to light. [place]ODORE. Oral cavity is moist and no rash, Some redness in the cheeks. NECK: Supple, no JVD, No Lymphadenopathy. PULMONARY:Bilateral air entry, with crackles bilaterally , more so posteriorly and at bases. No wheezing or rhonchi heard. CARDIOVASCULAR: S1/S2 heard. No murmur. CHEST:Moving chest very well and dullness on percussion at the bases. GASTROINTESTINAL:Soft, Non tender, BS are positive. SKIN: No rash or lesions. NEUROLOGIC:Alert, awake and is oriented X 3. Moving all the extremities. MUSCULOSKELETAL:Bilateral ankle edema. Non tender calf muscle. LYMPHATIC: No cervical or Inguinal adenopathy. Results & Data Vital Signs (Past 12 Hours) Vital Signs Temp Pulse Pulse Resp BP BP Pulse Ox 09/06/18 15:48 36.4 C L 60 24 157/74 H 93 09/06/18 14:59 61 09/06/18 13:24 63 20 90 09/06/18 12:23 158/66 H 09/06/18 11:20 36.6 C 59 L 16 170/72 H 92 09/06/18 08:00 63 09/06/18 07:50 148/67 H 09/06/18 07:20 36.6 C 60 20 176/75 H 99 09/06/18 07:05 66 16 98 Laboratory Results Abnormal lab results 09/05/18 09/05/18 09/06/18 Range/Units 20:08 21:59 06:17 APTT 52.1 H* 70.6 H* (21.0-31.0) Seconds Potassium (3.5-5.1) mmol/L Chloride (98-107) mmol/L Carbon Dioxide (21-32) mmol/L Glucose (70-99) mg/dl POC Glucose 240 H (70-99) 09/06/18 09/06/18 09/06/18 Range/Units 06:19 07:15 11:18 APTT (21.0-31.0) Seconds Potassium 3.2 L (3.5-5.1) mmol/L Chloride 94 L (98-107) mmol/L Carbon Dioxide 35 H (21-32) mmol/L Glucose 123 H (70-99) mg/dl POC Glucose 121 H 119 H (70-99) 09/06/18 09/06/18 Range/Units 13:15 16:32 APTT 57.5 H* (21.0-31.0) Seconds Potassium (3.5-5.1) mmol/L Chloride (98-107) mmol/L Carbon Dioxide (21-32) mmol/L Glucose (70-99) mg/dl POC Glucose 148 H (70-99) Diagnostic Findings CT angio chest PE protocol CT DOSE: 311.96 mGy.cm HISTORY: Chest pain PE TECHNIQUE: Multiaxial CT images of the chest were performed following the intravenous administration of contrast to evaluate the pulmonary arteries. Maximal intensity projection images were also obtained. A dose lowering technique was utilized adhering to the principles of ALARA. COMPARISON STUDY: 08/31/2018 FINDINGS: Central pulmonary vasculature is unremarkable. There are several small filling defects of the third order vessels of the right lower lobe distribution. All additional and main pulmonary arterial vasculature structures enhance appropriately. There are small bilateral pleural effusions. There are findings of moderately progressive pulmonary edematous type change versus respiratory distress syndrome. Thoracic aorta shows no evidence for dilatation or dissection. Limited evaluation of the upper abdomen confirms gallstones within the gallbladder. IMPRESSION: 1. Study is positive for several small third order emboli involving the right lower lobe arterial distribution. 2. No evidence for major central pulmonary embolus. 3. Findings of progressive pulmonary edematous change versus respiratory distress syndrome. 4. Small bilateral pleural effusions. 5. Gallstone filled gallbladder. The above report was generated using voice recognition software. It may contain grammatical, syntax or spelling errors. Electronically signed by: Franklin Randle M.D. 09/05/2018 10:56 AM Medications Administered Ordered Lasix 40 mg IV now X one dose now. Ordered KCL 40 Meq IV now X one dose.
--- NOTE | 2018-09-06 17:59 | Infectious Disease Progress Nt ---
Date of Service September 06, 2018 Assessment & Plan (1) Infection of pacemaker pocket: Patient with infected pacemaker pocket with MSSA bacteremia with staph aureus and Pseudomonas growing in pacemaker pocket. Patient to continue on IV cefepime, will likely require prolonged IV antibiotics. Will follow. (2) Bacteremia due to methicillin susceptible Staphylococcus aureus (MSSA): (3) Infection due to gram-negative anaerobic organism: Subjective Patient seen and examined at the bedside. Shortness of breath mildly improved. Diagnosed with small right lower lobe pulmonary embolus. IV heparin initiated. Blood pressure remains elevated. No fevers or chills. Repeat blood cultures negative. Remains in 2-1 AV block on telemetry. Review of Systems Review of Systems: All systems reviewed & are unremarkable except as noted in HPI & below Physical Exam Constitutional: WD/WN, vitals as above comfortable; no acute distress Eyes: PERRL, conjunctivae normal, anicteric sclerae ENMT: external ear and nose normal, oropharynx normal Neck: trachea midline, no thyromegaly neck nontender Respiratory: normal respiratory effort, lungs clear to auscultation normal percussion; no respiratory distress and does not use accessory muscles Cardiovascular: Rate/Rhythm: regular rate and regular rhythm Heart Sounds: normal S1 and normal S2; no gallop, no murmur and no cardiac rub Vessels: normal peripheral pulses; no JVD Gastrointestinal (Abdomen): normal bowel sounds, soft, nontender, no hepatosplenomegaly Musculoskeletal: no cyanosis or clubbing, extremities motor strength 5/5 Spine: thoracic spine normal to inspection and lumbar spine normal to inspection; no cervical spinal tenderness Skin: no rashes, warm and dry normal turgor and + wound (Pacemaker pocket with erythema drainage); no rashes Neurologic: patellar DTR's 2+ bilat, sensation intact moves all extremities and awake; no focal motor deficits Motor/Sensory: no sensory deficit Psychiatric: A+Ox3, euthymic affect Orientation: cooperative Lymphatic: no cervical or axillary lymphadenopathy no inguinal lymphadenopathy Results & Data Vital Signs (Past 12 Hours) Vital Signs Temp Pulse Pulse Resp BP BP Pulse Ox 09/06/18 15:48 36.4 C L 60 24 157/74 H 93 09/06/18 14:59 61 09/06/18 13:24 63 20 90 09/06/18 12:23 158/66 H 09/06/18 11:20 36.6 C 59 L 16 170/72 H 92 09/06/18 08:00 63 09/06/18 07:50 148/67 H 09/06/18 07:20 36.6 C 60 20 176/75 H 99 09/06/18 07:05 66 16 98 Laboratory Results [facility] 09/06/18 06:19 Sodium 136 Potassium 3.2 L Chloride 94 L Carbon Dioxide 35 H BUN 13 Creatinine 0.66 Glucose 123 H Calcium 8.5 Diagnostic Findings Microbiology 09/02/18 08:20 Blood Aerobic Blood Culture - Preliminary No growth in Aerobic bottle after 48 hours. 09/02/18 08:20 Blood Anaerobic Blood Culture - Preliminary No growth in Anaerobic bottle after 48 hours. 09/02/18 08:08 Blood Aerobic Blood Culture - Preliminary No growth in Aerobic bottle after 48 hours. 09/02/18 08:08 Blood Anaerobic Blood Culture - Preliminary No growth in Anaerobic bottle after 48 hours. 08/31/18 Unknown Chest Gram Stain - Final 08/31/18 Unknown Chest Wound Culture - Final Pseudomonas aeruginosa Staphylococcus aureus 08/30/18 23:59 Blood Aerobic Blood Culture - Final Staphylococcus aureus 08/30/18 23:59 Blood Anaerobic Blood Culture - Final Staphylococcus aureus 08/30/18 23:55 Blood Aerobic Blood Culture - Final Staphylococcus aureus 08/30/18 23:55 Blood Anaerobic Blood Culture - Final Staphylococcus aureus
[2018-09-06] MEDS: CLOTRIMAZOLE 10 MG TROCHE BUCCAL SCH (20:47)
[2018-09-06] MEDS: ARTIFICIAL TEARS OP SCH (20:48)
[2018-09-07] MEDS: CLOTRIMAZOLE 10 MG TROCHE BUCCAL SCH ×6 (00:08→23:48)
[2018-09-07] MEDS: IPRATROPIUM BROMIDE NEB SOLN 0.02% 2.5 ML VIAL INH SCH ×4 (01:50→19:07)
[2018-09-07] MEDS: LEVALBUTEROL HCL 0.63 MG/3 ML NEB NEB SCH ×4 (01:50→19:07)
[2018-09-07] MEDS: LEVOTHYROXINE SODIUM 50 MCG TABLET PO SCH (05:27)
--- NOTE | 2018-09-07 06:53 | XRay Report ---
XR chest 1V portable CLINICAL HISTORY: Hypoxia, ILD dyspnea COMPARISON STUDY: 09/06/2018 FINDINGS: Stable findings of pulmonary edema. Mild stable cardiac megaly. Chronic elevation right hem idiaphragm. IMPRESSION: Pulmonary edema unchanged from the prior study. The above report was generated using voice recognition software. It may contain grammatical, syntax or spelling errors. Electronically signed by: Franklin Randle M.D. 09/07/2018 6:51 AM
[2018-09-07 07:00] LABS: BUN Creatinine Ratio 21.6 (10-20); Calcium 8.2 mg/dl (8.5-10.1); Creatinine Clr Calc Pharmacy 76.6 ml/min; Est GFR (African American) 99.1; Est GFR (Non-African American) 85.5; Potassium 3.4 mmol/L (3.5-5.1)
[2018-09-07] MEDS: Heparin Adult STANDARD Wt-Based Dextrose 5% 25,000 units/500 mL IV SCH (07:02)
[2018-09-07 08:03] LABS: Partial Thromboplastin Ratio 2.4
[2018-09-07 08:21] LABS: Partial Thromboplastin Time 64.2 Seconds (21.0-31.0)
[2018-09-07] MEDS: FLUTICASONE/SALMETEROL 100/50 (ADVAIR) 14 PUFF/1 INHALER INH SCH ×2 (08:29→21:12)
[2018-09-07] MEDS ORDERED: POTASSIUM CHLORIDE 20 MEQ TABCR PO ONE (08:45)
[2018-09-07] MEDS: ERYTHROMYCIN OP OINT 5 MG/GM 3.5 GM TUBE OP SCH ×4 (08:52→21:13)
[2018-09-07] MEDS: CEFEPIME 2,000 MG in SYRINGE 7.5 ML IV SCH ×3 (08:52→23:48)
[2018-09-07] MEDS: AMLODIPINE BESYLATE 5 MG TAB PO SCH (08:53)
[2018-09-07] MEDS: LISINOPRIL 5 MG TAB PO SCH (08:53)
[2018-09-07] MEDS: INSULIN HUMAN NPH SC SCH (08:53)
[2018-09-07] MEDS: INSULIN ASPART 100 UNITS/ML 3 ML PEN SC SCH ×4 (08:54→21:13)
[2018-09-07] MEDS ORDERED: ALUMINUM/MAGNESIUM SUSP 30 ML UDC PO PRN (09:12)
[2018-09-07] MEDS: PANTOprazole 40 MG TAB PO SCH (10:19)
[2018-09-07] MEDS ORDERED: ALUMINUM/MAGNESIUM SUSP 18 ML, LIDOCAINE HCL VISCOUS 2% 6 ML, BARCODE IDENTIFIER 1 EA PO ONE (10:26)
[2018-09-07] MEDS: PROMETHAZINE HCL 12.5 MG in SODIUM CHLORIDE 0.9% 50 ML IV PRN (10:41)
--- NOTE | 2018-09-07 11:48 | Pharmacy Report ---
Pharmacy Glycemic Short Note 2 - Date of Service September 07, 2018 - Glycemic Short BSG Results (Last 24 hours): 09/06/18 09/06/18 09/07/18 16:32 20:41 06:02 Glucose 106 H POC Glucose 148 H 185 H 09/07/18 09/07/18 07:13 11:15 Glucose POC Glucose 111 H 298 H Outpatient Anti-diabetic Regimen: * Metformin 500 mg po BID * Note: also on prednisone 10 mg po daily * A1c = 7.1% on 09/02/18 Risk Factors for Insulin Resistance: * Steroids: tapered to home dose of prednisone 10 mg daily 09/03, then increased and started 40mg PO daily 09/03 evening - then pt had Prednisone 40mg + Solu- medrol 60mg IV this morning * Infection: MSSA bacteremia 2nd infected pacemaker with MSSA and Pseudomonas isolated from chest culture. On cefepime. * Recent Surgery: POD 4 s/p removal of infected pacemaker * Diet: T2DM ASSESSMENT: 09/07/18 * Fasting BSG this AM 111, continues on prednisone 40 mg, heparin drip * Good control yesterday 119-185 with 21 units of insulin, continue nph scale with prednisone * Lunch BSG elevated today, expanded goal range 110-160 and slightly tightened carb ratio 09/06/18 * Transitioned to oral prednisone 40 mg today; received NPH per scale * Fasting this AM 121 * Patient has had elevated BSG at bedtime past two days, will consider tightening carb ratio with dinner * On heparin gtt for PE 09/05/18 * Patient received Solu-medrol 60mg IV x1 this morning (in addition to 40mg PO prednisone) for worsening dyspnea, repeat CXR, ABG, D dimer ordered, Dr. Delong Bread Stacker consulted. * Gave NPH with Solu-medrol, will continue orders for tomorrow for prednisone. * Fasting BSG 98mg/dl, continue orders otherwise. 09/04/18 * Prednisone increased last night to 40mg daily, started last night, tighten CF and CR. Continue NPH on scale and increase for increase in prednisone dose. 09/03/18 * 83 yo F with T2DM admitted with bacteremia 2nd infected pacemaker. Poor glycemic control while inpatient likely 2nd surgical stress, stress-dose steroids (for home prednisone 10 mg po daily), and significant infection * Insulin drip discontinued yesterday at ~1800 and BSG's have remained in or near goal range, ranging 128-143 mg/dL since discontinuation * Steroids changed from hydrocortisone and tapered to home prednisone dose - will cut basal insulin dose by 50% and will switch from Lantus to NPH 2nd similar pharmacokinetics to prednisone's hyperglycemic effects * Will loosen Novolog parameters 2nd steroid taper and slight decrease in BSG from breakfast to lunch, to weight-based moderate stress estimate PLAN FOR INPATIENT GLYCEMIC CONTROL: * Holding outpatient oral diabetes medications * Basal insulin: NPH 18 units x 1 dose this morning with IV solumedrol and PO prednisone * NPH qAM based on BSG: * Hold for BSG less than 100 mg/dL * 12 units for BSG 100-140 mg/dL * 18 units for BSG greater than 140 mg/dL * Bolus insulin * NovoLog per scale ACHS * Goal range: 110-160 mg/dL * Correction factor: 30 mg/dL/unit * Carb ratio: 9g CHO/unit PLAN FOR DISCHARGE: * Continue metformin * Per ICU rounds discussion - despite HbA1c of 7.1%, patient may also benefit from initiation of outpatient insulin to help further prevent diabetic complications (significant infection/bacteremia). If so, would recommend insulin NPH once daily with breakfast/prednisone. Would be very cautious with initial dose to help decrease risk for hypoglycemia and titrate depending on trend in BSG.
[2018-09-07] MEDS: ROSUVASTATIN CALCIUM 10 MG TAB PO SCH (11:56)
[2018-09-07] MEDS: predniSONE 20 MG TAB PO SCH (11:57)
[2018-09-07] MEDS: CEROVITE ADV FORMULA TAB PO SCH (11:57)
[2018-09-07] MEDS ORDERED: methylPREDNISolone 60 MG in SYRINGE 0 ML IV ONE (12:00)
[2018-09-07] MEDS ORDERED: FUROSEMIDE 20 MG in SYRINGE 0 ML IV ONE (12:15)
[2018-09-07 12:31] LABS: iSTAT Allen Test Pass; iSTAT Arterial Blood Gas HCO3 35 meg/L (19-24); iSTAT Arterial Blood Gas pCO2 49 mmHg (35-46); iSTAT Arterial Blood Gas pH 7.46 (7.35-7.45); iSTAT Carbon Dioxide 36 mEq/l (24-31); iSTAT Site L Radial
[2018-09-07 12:37] LABS: Basophils # (auto) 0.01 K/uL (0-0.2); Basophils % (auto) 0.1 %; Eosinophils # (auto) 0.16 K/uL (0-0.5); Eosinophils % (auto) 1.3 %; Hematocrit (blood only) 30.6 % (37-47); Hemoglobin 10.4 g/dL (12.0-16.0); Immature Granulocytes # (auto) 0.15 K/uL (0.00-0.02); Immature Granulocytes % (auto) 1.2 %; Lymphocytes # (auto) 0.94 K/uL (1.2-3.4); Lymphocytes % (auto) 7.7 %; Mean Corpuscular Volume 93.6 fL (80-100); Monocytes # (auto) 1.12 K/uL (0.11-0.59); Monocytes % (auto) 9.2 %; Neutrophils # (auto) 9.83 K/uL (1.4-6.5); Neutrophils % (auto) 80.5 %; Platelet Count 296 K/uL (130-400); RDW Coefficient of Variation 13.3 % (11.5-14.5); RDW Standard Deviation 45.4 fL (36.4-46.3); Red Blood Count 3.27 M/uL (4.2-5.4); White Blood Count 12.21 K/uL (4.8-10.8)
--- NOTE | 2018-09-07 14:15 | Cardiology Progress Note ---
Date of Service September 07, 2018 Assessment & Plan (1) Pulmonary embolus: (2) Bacteremia due to methicillin susceptible Staphylococcus aureus (MSSA): (3) Mobitz type 2 second degree atrioventricular block: 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 Pacemaker extracted 09/01/2018 without complication. Remains sinus rhythm/tachycardia with 2-1 AV block on telemetry. Blood pressure remains hypertensive, however, mildly improved. Amlodipine and lisinopril added. Patient will receive intravenous Lasix today due to positive fluid balance and weight gain with IV therapies. Antibiotics per infectious disease. Continue IV anticoagulation, steroids, and nebulizers per pulmonary medicine. Repeat blood cultures drawn 09/02/2018 with no growth. No indication for temporary transvenous pacer at this time. Beta-renu will remain on hold. Implantation of permanent pacemaker to be determined by electrophysiology. (4) Infection of pacemaker pocket: Continue current antibiotic therapy per direction of infectious disease. (5) Interstitial lung disease: 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 Pacemaker extracted 09/01/2018 without complication. Remains sinus rhythm/tachycardia with 2-1 AV block on telemetry. Blood pressure remains hypertensive. Amlodipine titrated to 10 mg daily during hospitalization. Add lisinopril 5 mg daily. Repeat blood cultures drawn 09/02/2018 with no growth x 72 hours. No indication for temporary transvenous pacer at this time. Beta-renu will remain on hold. Tentative plan for permanent pacemaker implantation after blood cultures have cleared and patient has received adequate antibiotic treatment per guidance of infectious disease specialist. IV anticoagulation per direction of pulmonary medicine. Subjective Patient seen and examined at the bedside. Notes worsening shortness of breath today. Positive fluid balance and weight gain noted since admission. Prescribed IV steroids and anticoagulation by pulmonary medicine. Notes cough with minimal sputum production. Denies orthopnea or PND. No palpitations. Remains 2-1 AV block on telemetry. No lightheadedness, dizziness, syncope, or near syncope. Review of Systems Review of Systems: All systems reviewed & are unremarkable except as noted in HPI & below Physical Exam Physical Exam: General: NAD, AAO x3, well nourished. HEENT: Normocephalic. Atraumatic. Conjunctiva pink, no scleral icterus. Neck: No carotid bruits, the carotid upstrokes are brisk. No JVD. No HJR. Chest: Left-sided pacemaker site dressing clean, dry, intact. No erythema or drainage. Heart: Regular borderline tachycardic, normal S-1 and S-2 no S-3 or S-4 gallop. No murmurs or rub appreciated. PMI is not displaced. No RV heave. Lungs: + Dry crackles bilateral. No rhonchi. Mild end expiratory wheezing. Abdomen: Normal bowel sounds. Soft. Nontender. No masses or organomegaly. No abdominal bruits. Extremities: No clubbing, cyanosis, or edema. Pulses: radial=2/4, Dorsalis pedis =2/4, posterior tibial=2/4. Neuro: Cranial nerves grossly intact. No focal motor deficit. Results & Data Vital Signs (Past 12 Hours) Vital Signs Temp Pulse Pulse Pulse Resp BP Pulse Ox 09/07/18 13:59 59 L 59 L 20 93 09/07/18 12:14 62 62 36 H 94 09/07/18 10:40 21 164/61 H 09/07/18 10:35 37 C 62 34 H 172/113 H 90 09/07/18 08:30 164/66 H 09/07/18 08:00 59 L 09/07/18 07:55 37 C 61 16 178/77 H 93 09/07/18 07:03 59 L 22 89 L 09/07/18 04:22 37.1 C 60 20 182/81 H 92 (1) Pulmonary embolus Acute cor pulmonale presence: without acute cor pulmonale Chronicity: acute Pulmonary embolism type: unspecified Qualified Code(s): I26.99 - Other pulmonary embolism without acute cor pulmonale
--- NOTE | 2018-09-07 16:08 | Hospitalist Progress Note ---
Date of Service September 07, 2018 Assessment & Plan (1) Sepsis: Secondary to pacemaker site infection, bacteremia hx SSS sp recent PPM Immunocompromised patient Hx Sjogren's syndrome on chronic steroid Rx s/Post removal of pacemaker Wound culture: Positive for Pseudomonas and MSSA Blood cultures: Positive for MSSA cefepime IV Discussed with Dr. Griffin, recommend earliest pacemaker placement next week Discussed with Dr. Morris, who discussed case with Dr. Baird Acute on Chronic Hypoxic Respiratory Failure Interstitial lung disease History of Sjogren's syndrome with lung involvement On chronic prednisone 5 mg p.o. daily - dyspnea and hypoxia worsened morning of September 05, 2018 -CT chest ordered: Positive for right lower lobe pulmonary emboli -Heparin IV started Dose of Solu-Medrol 60 mg IV given -Required increasing his oxygen supplement to 5 L nasal cannula today from 2 L Reporting dyspnea, epigastric discomfort Chest x-ray: Unchanged from yesterday Solu-Medrol 60 mg IV ordered Discussed with the pulmonary service, recommend Lasix IV, and initiation of BiPAP On prednisone 40 mg p.o. daily (usually takes prednisone 5 mg p.o. daily) Nebs every 6 hours Hypertension Amlodipine increased to 10 mg p.o. daily for better BP control Lisinopril 5 mg p.o. daily added Monitor blood pressure DM2 ISS DVT prophylaxis. On heparin drip Full code Disposition Pending DVT prophylaxis. Lovenox subcu Full code Case discussed with patient All questions answered, she has understanding, comfortable, agreeable with the plan of care Subjective Follow-up for pacemaker infection, bacteremia, interstitial lung disease Notified by RN as patient was having discomfort and dyspnea Seen sitting up in bed, not in distress but appears to be anxious Reports of dyspnea, epigastric discomfort Denies nausea vomiting, diarrhea Denies chills, fevers No other symptoms Review of Systems Review of Systems: All systems reviewed & are unremarkable except as noted in HPI & below Physical Exam Physical Exam: General- oriented x 3, mild tachypnea, mild accessory muscle use, speaks in sentences Eyes- anicteric Neck- no JVD Lungs-crackles bilaterally, the same as yesterday Heart- normal rate, regular rhythm; no murmurs Abdomen- normal bowel sounds, nondistended, soft, nontender Extremities- no pretibial edema, no calf tenderness Neuro- alert, oriented x 3; no gross focal neurologic deficits Skin- warm & dry Results & Data Vital Signs (Past 12 Hours) Vital Signs Temp Pulse Pulse Pulse Resp BP BP 09/07/18 15:36 36.8 C 57 L 23 157/74 H 09/07/18 13:59 59 L 59 L 20 09/07/18 12:14 62 62 36 H 09/07/18 10:40 21 164/61 H 09/07/18 10:35 37 C 62 34 H 172/113 H 09/07/18 08:30 164/66 H 09/07/18 08:00 59 L 09/07/18 07:55 37 C 61 16 178/77 H 09/07/18 07:03 59 L 22 09/07/18 04:22 37.1 C 60 20 182/81 H Pulse Ox 09/07/18 15:36 97 09/07/18 13:59 93 09/07/18 12:14 94 09/07/18 10:40 09/07/18 10:35 90 09/07/18 08:30 09/07/18 08:00 09/07/18 07:55 93 09/07/18 07:03 89 L 09/07/18 04:22 92 Laboratory Results Laboratory Results - last 24 hr 09/06/18 09/06/18 09/06/18 16:32 20:35 20:41 WBC RBC Hgb Hct MCV MCH MCHC RDW Std Deviation RDW Coeff of Gabriel Plt Count MPV Immature Gran % (Auto) Neut % (Auto) Lymph % (Auto) [place] % (Auto) Eos % (Auto) Baso % (Auto) Immature Gran # (Auto) Neut # (Auto) Lymph # (Auto) [place] # (Auto) Eos # (Auto) Baso # (Auto) APTT PTT Ratio Sample Site POC pH POC pCO2 POC pO2 POC HCO3 POC Total CO2 POC Base Excess POC ABG O2 Sat Wilian Test Sodium Potassium Chloride Carbon Dioxide Anion Gap BUN Creatinine Est Cr Clr Drug Dosing Est GFR ( Amer) Est GFR (Non-Af Amer) BUN/Creatinine Ratio Glucose POC Glucose 148 H 185 H Calcium Stl C. diff Tox B Gene Negative Cdiff Gene 09/07/18 09/07/18 09/07/18 06:02 06:02 07:13 WBC RBC Hgb Hct MCV MCH MCHC RDW Std Deviation RDW Coeff of Gabriel Plt Count MPV Immature Gran % (Auto) Neut % (Auto) Lymph % (Auto) [place] % (Auto) Eos % (Auto) Baso % (Auto) Immature Gran # (Auto) Neut # (Auto) Lymph # (Auto) [place] # (Auto) Eos # (Auto) Baso # (Auto) APTT 64.2 H* PTT Ratio 2.4 Sample Site POC pH POC pCO2 POC pO2 POC HCO3 POC Total CO2 POC Base Excess POC ABG O2 Sat Wilian Test Sodium 132 L Potassium 3.4 L Chloride 91 L Carbon Dioxide 34 H Anion Gap 7.0 BUN 13 Creatinine 0.60 Est Cr Clr Drug Dosing 76.6 Est GFR ( Amer) 99.1 Est GFR (Non-Af Amer) 85.5 BUN/Creatinine Ratio 21.6 H Glucose 106 H POC Glucose 111 H Calcium 8.2 L Stl C. diff Tox B Gene 09/07/18 09/07/18 09/07/18 11:15 12:11 12:23 WBC 12.21 H RBC 3.27 L Hgb 10.4 L Hct 30.6 L MCV 93.6 MCH 31.8 MCHC 34.0 RDW Std Deviation 45.4 RDW Coeff of Gabriel 13.3 Plt Count 296 MPV 10.0 Immature Gran % (Auto) 1.2 Neut % (Auto) 80.5 Lymph % (Auto) 7.7 [place] % (Auto) 9.2 Eos % (Auto) 1.3 Baso % (Auto) 0.1 Immature Gran # (Auto) 0.15 H Neut # (Auto) 9.83 H Lymph # (Auto) 0.94 L [place] # (Auto) 1.12 H Eos # (Auto) 0.16 Baso # (Auto) 0.01 APTT PTT Ratio Sample Site L Radial POC pH 7.46 H POC pCO2 49 H POC pO2 170 H POC HCO3 35 H POC Total CO2 36 H POC Base Excess 11.0 H POC ABG O2 Sat 100.0 H Wilian Test Pass Sodium Potassium Chloride Carbon Dioxide Anion Gap BUN Creatinine Est Cr Clr Drug Dosing Est GFR ( Amer) Est GFR (Non-Af Amer) BUN/Creatinine Ratio Glucose POC Glucose 298 H Calcium Stl C. diff Tox B Gene
--- NOTE | 2018-09-07 17:47 | Infectious Disease Progress Nt ---
Date of Service September 07, 2018 Assessment & Plan (1) Infection of pacemaker pocket: Patient with infected pacemaker pocket with MSSA bacteremia with staph aureus and Pseudomonas growing in pacemaker pocket. Patient to continue on IV cefepime, will likely require prolonged IV antibiotics. Given initial cultures and follow up, would recommend replacement of pacemaker early next week if f/u cultures remain negative.Discussed with hospitalst. Will follow. (2) Bacteremia due to methicillin susceptible Staphylococcus aureus (MSSA): (3) Infection due to gram-negative anaerobic organism: Subjective Patient seen and examined at the bedside. Notes worsening shortness of breath today. Positive fluid balance and weight gain noted since admission. Prescribed IV steroids and anticoagulation by pulmonary medicine. Notes cough with minimal sputum production. Denies orthopnea or PND. No palpitations. Remains 2-1 AV block on telemetry. No lightheadedness, dizziness, syncope, or near syncope. Physical Exam Constitutional: WD/WN, vitals as above comfortable; no acute distress Eyes: PERRL, conjunctivae normal, anicteric sclerae ENMT: external ear and nose normal, oropharynx normal Neck: trachea midline, no thyromegaly neck nontender Respiratory: normal respiratory effort, lungs clear to auscultation normal percussion; no respiratory distress and does not use accessory muscles Cardiovascular: Rate/Rhythm: regular rate and regular rhythm Heart Sounds: normal S1 and normal S2; no gallop, no murmur and no cardiac rub Vessels: normal peripheral pulses; no JVD Gastrointestinal (Abdomen): normal bowel sounds, soft, nontender, no hepatosp lenomegaly Musculoskeletal: no cyanosis or clubbing, extremities motor strength 5/5 Spine: thoracic spine normal to inspection and lumbar spine normal to inspection; no cervical spinal tenderness Skin: no rashes, warm and dry normal turgor and + wound (Pacemaker pocket with erythema drainage); no rashes Neurologic: patellar DTR's 2+ bilat, sensation intact moves all extremities and awake; no focal motor deficits Motor/Sensory: no sensory deficit Psychiatric: A+Ox3, euthymic affect Orientation: cooperative Lymphatic: no cervical or axillary lymphadenopathy no inguinal lymphadenopathy Results & Data Vital Signs (Past 12 Hours) Vital Signs Temp Pulse Pulse Resp BP BP Pulse Ox 09/07/18 16:50 60 09/07/18 15:36 36.8 C 57 L 23 157/74 H 97 09/07/18 13:59 59 L 59 L 20 93 09/07/18 12:14 62 62 36 H 94 09/07/18 10:40 21 164/61 H 09/07/18 10:35 37 C 62 34 H 172/113 H 90 09/07/18 08:30 164/66 H 09/07/18 08:00 59 L 09/07/18 07:55 37 C 61 16 178/77 H 93 09/07/18 07:03 59 L 22 89 L Laboratory Results Short CBC 09/07/18 Range/Units 12:23 WBC 12.21 H (4.8-10.8) K/uL Hgb 10.4 L (12.0-16.0) g/dL Hct 30.6 L (37-47) % Plt Count 296 (130-400) K/uL BMP 09/07/18 06:02 Sodium 132 L Potassium 3.4 L Chloride 91 L Carbon Dioxide 34 H BUN 13 Creatinine 0.60 Glucose 106 H Calcium 8.2 L Diagnostic Findings Microbiology 09/02/18 08:20 Blood Aerobic Blood Culture - Final No growth in Aerobic bottle after 5 days. 09/02/18 08:20 Blood Anaerobic Blood Culture - Final No growth in Anaerobic bottle after 5 days. 09/02/18 08:08 Blood Aerobic Blood Culture - Final No growth in Aerobic bottle after 5 days. 09/02/18 08:08 Blood Anaerobic Blood Culture - Final No growth in Anaerobic bottle after 5 days. 08/31/18 Unknown Chest Gram Stain - Final 08/31/18 Unknown Chest Wound Culture - Final Pseudomonas aeruginosa Staphylococcus aureus 08/30/18 23:59 Blood Aerobic Blood Culture - Final Staphylococcus aureus 08/30/18 23:59 Blood Anaerobic Blood Culture - Final Staphylococcus aureus 08/30/18 23:55 Blood Aerobic Blood Culture - Final Staphylococcus aureus 08/30/18 23:55 Blood Anaerobic Blood Culture - Final Staphylococcus aureus XR chest 1V portable CLINICAL HISTORY: Hypoxia, ILD dyspnea COMPARISON STUDY: 09/06/2018 FINDINGS: Stable findings of pulmonary edema. Mild stable cardiac megaly. Chronic elevation right hemidiaphragm. IMPRESSION: Pulmonary edema unchanged from the prior study. The above report was generated using voice recognition software. It may contain grammatical, syntax or spelling errors. Electronically signed by: Franklin Randle M.D. 09/07/2018 6:51 AM Dictated: 09/07/1850 Transcribed: 09/07/1850
[2018-09-07] MEDS ORDERED: PHARMACY GLYCEMIC MGMT CONSULT STA (17:58)
--- NOTE | 2018-09-07 18:50 | Pulmonology Progress Note ---
Date of Service September 07, 2018 Assessment & Plan (1) Respiratory failure: The patient was started on BiPAP with significant improvement in her breathing and also improvement in oxygenation. The patient also has chronic interstitial lung disease and she was started on now IV Solu-Medrol with significant improvement. Overall she has improved and we are going to continue with this current plan of care as prescribed. (2) Pulmonary embolus: Currently patient remains on IV Heparin and will be continued. Pulmonary embolism type: unspecified Chronicity: acute Acute cor pulmonale presence: without acute cor pulmonale Qualified Code(s): I26.99 - Other pulmonary embolism without acute cor pulmonale Pulmonary embolism type: unspecified Chronicity: acute Acute cor pulmonale presence: without acute cor pulmonale Qualified Code(s): I26.99 - Other pulmonary embolism without acute cor pulmonale (3) Bacteremia due to methicillin susceptible Staphylococcus aureus (MSSA): The patient is on broad-spectrum antibiotics, cefepime which will be continued. (4) Infection due to gram-negative anaerobic organism: The patient is on cefepime which will be continued as prescribed. (5) Interstitial lung disease: The patient has chronic interstitial lung disease secondary to Sjogren's syndrome. We will give her IV Solu-Medrol starting with 80 mg every 8 hours and slowly tapering down until it is completely gone. We will also continue with BiPAP as prescribed. (6) Infection of pacemaker pocket: Overall she seems to be doing better on current plan of care including IV antibiotics. (7) Sepsis: Has improved significantly on IV antibiotics. (8) Sjogren's syndrome with lung involvement: We will continue with current management as prescribed. (9) Pulmonary hypertension: We will continue with the Lasix and oxygen as recommended. I have spent greater than 35 minutes of clinical time. Subjective The patient was seen and examined. Today the patient was more short of breath. She was still maintaining oxygenation. She was given IV steroids and was also started on BiPAP with significant improvement in her breathing. The patient has Sjogren's disease and also chronic interstitial lung disease secondary to that. She has been on steroids on and off on multiple occasions in the past. When I questioned her about her breathing she feels that it has improved significantly after the steroids as well as the BiPAP. She denies having any chest pain or cough or fever chills or hemoptysis. Review of Systems Review of Systems: The patient overall feels better. Denies having any headache dizziness or syncopal episode. Also denies having any chest pain or nausea vomiting or abdominal pain. No blood in stool urine no painful micturition. Physical Exam Physical Exam: Elderly female resting comfortably not in any acute distress. Currently she is on a BiPAP. HEENT: Pupils are reactive to light and accommodation. Unable to examine the oral cavity because of recent being on a BiPAP with a mask covering her nose and oral cavity. Neck: The neck is supple, no JVD and no cervical no supraclavicular adenopathy. Chest: Bilateral air entry with coarse breathing and fine crackles bilaterally. No wheezing no rhonchi heard. The breathing overall has improved since this morning. Heart: S1-S2 heard. Not able to appreciate murmur or gallop or rub. Abdomen: The abdomen is soft, nontender, bowel sounds are positive, no mass felt. Neuro: The patient is alert and awake and follows simple commands and moves all the extremities. There is no neuro deficit at this time. Extremities: No clubbing, no edema, nontender calf muscles. Skin: No rash, no lesions seen. Results & Data Vital Signs (Past 12 Hours) Vital Signs Temp Pulse Pulse Resp BP BP Pulse Ox 09/07/18 16:50 60 09/07/18 15:36 36.8 C 57 L 23 157/74 H 97 09/07/18 13:59 59 L 59 L 20 93 09/07/18 12:14 62 62 36 H 94 09/07/18 10:40 21 164/61 H 09/07/18 10:35 37 C 62 34 H 172/113 H 90 09/07/18 08:30 164/66 H 09/07/18 08:00 59 L 09/07/18 07:55 37 C 61 16 178/77 H 93 09/07/18 07:03 59 L 22 89 L Laboratory Results Current Inpatient Medications l Abnormal lab results 09/06/18 09/07/18 09/07/18 Range/Units 20:41 06:02 06:02 WBC (4.8-10.8) K/uL RBC (4.2-5.4) M/uL Hgb (12.0-16.0) g/dL Hct (37-47) % Immature Gran # (Auto) (0.00-0.02) K/uL Neut # (Auto) (1.4-6.5) K/uL Lymph # (Auto) (1.2-3.4) K/uL [place] # (Auto) (0.11-0.59) K/uL APTT 64.2 H* (21.0-31.0) Seconds POC pH (7.35-7.45) POC pCO2 (35-46) mmHg POC pO2 (80-95) mmHg POC HCO3 (19-24) cristopher/L POC Total CO2 (24-31) mEq/l POC Base Excess (-9-1.8) cristopher/L POC ABG O2 Sat (90-95) % Sodium 132 L (136-145) mmol/L Potassium 3.4 L (3.5-5.1) mmol/L Chloride 91 L (98-107) mmol/L Carbon Dioxide 34 H (21-32) mmol/L BUN/Creatinine Ratio 21.6 H (10-20) Glucose 106 H (70-99) mg/dl POC Glucose 185 H (70-99) Calcium 8.2 L (8.5-10.1) mg/dl 09/07/18 09/07/18 09/07/18 Range/Units 07:13 11:15 12:11 WBC (4.8-10.8) K/uL RBC (4.2-5.4) M/uL Hgb (12.0-16.0) g/dL Hct (37-47) % Immature Gran # (Auto) (0.00-0.02) K/uL Neut # (Auto) (1.4-6.5) K/uL Lymph # (Auto) (1.2-3.4) K/uL [place] # (Auto) (0.11-0.59) K/uL APTT (21.0-31.0) Seconds POC pH 7.46 H (7.35-7.45) POC pCO2 49 H (35-46) mmHg POC pO2 170 H (80-95) mmHg POC HCO3 35 H (19-24) cristopher/L POC Total CO2 36 H (24-31) mEq/l POC Base Excess 11.0 H (-9-1.8) cristopher/L POC ABG O2 Sat 100.0 H (90-95) % Sodium (136-145) mmol/L Potassium (3.5-5.1) mmol/L Chloride (98-107) mmol/L Carbon Dioxide (21-32) mmol/L BUN/Creatinine Ratio (10-20) Glucose (70-99) mg/dl POC Glucose 111 H 298 H (70-99) Calcium (8.5-10.1) mg/dl 09/07/18 09/07/18 Range/Units 12:23 16:13 WBC 12.21 H (4.8-10.8) K/uL RBC 3.27 L (4.2-5.4) M/uL Hgb 10.4 L (12.0-16.0) g/dL Hct 30.6 L (37-47) % Immature Gran # (Auto) 0.15 H (0.00-0.02) K/uL Neut # (Auto) 9.83 H (1.4-6.5) K/uL Lymph # (Auto) 0.94 L (1.2-3.4) K/uL [place] # (Auto) 1.12 H (0.11-0.59) K/uL APTT (21.0-31.0) Seconds POC pH (7.35-7.45) POC pCO2 (35-46) mmHg POC pO2 (80-95) mmHg POC HCO3 (19-24) cristopher/L POC Total CO2 (24-31) mEq/l POC Base Excess (-9-1.8) cristopher/L POC ABG O2 Sat (90-95) % Sodium (136-145) mmol/L Potassium (3.5-5.1) mmol/L Chloride (98-107) mmol/L Carbon Dioxide (21-32) mmol/L BUN/Creatinine Ratio (10-20) Glucose (70-99) mg/dl POC Glucose 144 H (70-99) Calcium (8.5-10.1) mg/dl Diagnostic Findings XR chest 1V portable CLINICAL HISTORY: Hypoxia, ILD dyspnea COMPARISON STUDY: 09/06/2018 FINDINGS: Stable findings of pulmonary edema. Mild stable cardiac megaly. Chronic elevation right hemidiaphragm. IMPRESSION: Pulmonary edema unchanged from the prior study. The above report was generated using voice recognition software. It may contain grammatical, syntax or spelling errors. Electronically signed by: Franklin Randle M.D. 09/07/2018 6:51 AM Medications Administered Current Inpatient Medications Acetaminophen (Tylenol) 650 mg PO Q4H PRN PRN Reason: Pain or Fever Stop: 09/30/18 03:45 Last Admin: 09/06/18 02:07 Dose: 650 mg Documented by: Al Hydrox/Mg Hydrox/Simethicone (Maalox) 30 ml PO Q6H PRN PRN Reason: Dyspepsia Stop: 10/07/18 09:11 Last Admin: 09/07/18 09:39 Dose: 30 ml Documented by: Albuterol (Ventolin Hfa) 2 puffs INH Q6H PRN PRN Reason: Shortness Of Breath Stop: 10/01/18 17:29 Amlodipine Besylate (Norvasc) 10 mg PO DAILY [facility] Stop: 10/05/18 08:59 Last Admin: 09/07/18 08:53 Dose: 10 mg Documented by: Artificial Tears (Artificial Tears) 1 drops OP HS [facility] Stop: 09/30/18 20:59 Last Admin: 09/06/18 20:48 Dose: 1 drops Documented by: Clotrimazole (Mycelex) 10 mg BUCCAL [id number] [facility] Stop: 09/08/18 18:59 Last Admin: 09/07/18 16:10 Dose: Not Given Documented by: Dextrose (Dextrose 50%) 25 - 50 ml IV UD PRN; Protocol PRN Reason: Hypoglycemia Protocol Stop: 09/30/18 03:45 Docusate Sodium (Colace) 100 mg PO BID PRN PRN Reason: CONSTIPATION Stop: 09/30/18 06:29 Erythromycin (Erythromycin) 1 appln OP QID [facility] Stop: 09/10/18 08:59 Last Admin: 09/07/18 16:11 Dose: Not Given Documented by: Glucagon (Glucagen) 1 mg SQ UD PRN; Protocol PRN Reason: Hypoglycemia Protocol Stop: 09/30/18 03:45 Glucose (Glucose 40%) 15 - 30 gm PO UD PRN; Protocol PRN Reason: Hypoglycemia Protocol Stop: 09/30/18 03:45 Glucose (Dex4 Glucose) 4 - 8 tabs PO UD PRN; Protocol PRN Reason: Hypoglycemia Protocol Stop: 09/30/18 03:45 Hydromorphone HCl (Dilaudid) 0.25 mg IV Q3H PRN PRN Reason: Pain Stop: 09/14/18 03:45 Promethazine HCl 12.5 mg/ (Sodium Chloride) 50.5 mls @ 202 mls/hr IV Q6H PRN PRN Reason: Nausea And Vomiting Stop: 09/30/18 00:49 Last Infusion: 09/07/18 12:07 Dose: Infused Documented by: Heparin Sodium/Dextrose (Heparin Sodium/Dextrose) 25,000 units in 500 mls @ 23 mls/hr IV .[id number] [facility]; Protocol Stop: 10/05/18 15:29 Last Admin: 09/07/18 07:02 Dose: 1,150 units/hr, 23 mls/hr Documented by: Cefepime HCl 2,000 mg/ Syringe 20 mls @ 5 mls/min IV Q8H [facility]; Protocol Stop: 09/16/18 10:59 Last Admin: 09/07/18 16:13 Dose: 5 mls/min Documented by: Methylprednisolone 80 mg/ (Syringe) 1.28 mls @ 1.5 mls/min IV Q8H [facility] Stop: 09/08/18 12:01 Methylprednisolone 60 mg/ (Syringe) 0.96 mls @ 1.5 mls/min IV Q8H [facility] Stop: 09/09/18 12:01 Insulin Aspart (Novolog Flexpen) 0 units SC ACHS [facility] Stop: 10/02/18 20:59 Last Admin: 09/07/18 16:26 Dose: Not Given Documented by: Insulin [facility] NPH ([facility]olin [facility]) [facility] Protocol Stop: 10/04/18 08:59 Last Admin: 09/07/18 08:53 Dose: 12 units Documented by: Ioversol (Optiray 320 125ml) 120 ml IV ONCE PRN PRN Reason: Interaction Checking Stop: 09/09/18 10:43 Last Admin: 09/05/18 10:45 Dose: 120 ml Documented by: Ipratropium [place] (Atrovent 0.02% 0.5mg/2.5ml) 0.5 mg NEB Q4H PRN PRN Reason: sob Stop: 10/01/18 17:29 Ipratropium [place] (Atrovent 0.02% 0.5mg/2.5ml) 0.5 mg INH Q6R [facility] Stop: 10/03/18 13:59 Last Admin: 09/07/18 13:56 Dose: 0.5 mg Documented by: Levalbuterol HCl (Xopenex 0.63 Mg/3 Ml Neb) 0.63 mg NEB Q6R [facility] Stop: 10/03/18 13:59 Last Admin: 09/07/18 13:55 Dose: 0.63 mg Documented by: Levothyroxine Sodium (Synthroid) 50 mcg PO DAILYBB [facility] Stop: 09/30/18 06:29 Last Admin: 09/07/18 05:27 Dose: 50 mcg Documented by: Lisinopril (Zestril) 5 mg PO QAM [facility] Stop: 10/06/18 12:14 Last Admin: 09/07/18 08:53 Dose: 5 mg Documented by: Miscellaneous (Order Awaiting Action) 1 ea N/A QS [facility] Stop: 09/30/18 07:59 Last Admin: 09/07/18 16:10 Dose: Not Given Documented by: Miscellaneous (Carbohydrates For Hypoglycemia) 15 - 30 gm PO UD PRN PRN Reason: Hypoglycemia Treatment Stop: 09/30/18 03:45 Miscellaneous Information (Consult Glycemic Management Pharmacy) 1 ea N/A UD PRN PRN Reason: Consult Stop: 10/02/18 07:11 Miscellaneous Information (Cefepime Consult Active) 1 ea N/A UD PRN PRN Reason: Consult Stop: 10/02/18 07:11 Multivitamins/Minerals (Multivitamin W/ Minerals Tab) 1 tab PO DAILY [facility]; Protocol Stop: 09/30/18 08:59 Last Admin: 09/07/18 11:57 Dose: Not Given Documented by: Oxycodone/Acetaminophen (Percocet 5mg/325mg) 1 - 2 tab PO Q6H PRN PRN Reason: Moderate-Severe Pain Stop: 09/15/18 14:04 Pantoprazole Sodium (Protonix) 40 mg PO DAILY [facility]; Protocol Stop: 09/30/18 08:59 Last Admin: 09/07/18 10:19 Dose: 40 mg Documented by: Prednisone (Prednisone) 10 mg PO QAM [facility] Stop: 10/03/18 08:59 Last Admin: 09/03/18 08:48 Dose: 10 mg Documented by: Prednisone (Prednisone) 40 mg PO DAILY [facility] Stop: 10/03/18 17:14 Last Admin: 09/07/18 11:57 Dose: Not Given Documented by: Rosuvastatin Calcium (Crestor) 10 mg PO DAILY [facility] Stop: 09/30/18 08:59 Last Admin: 09/07/18 11:56 Dose: Not Given Documented by: Fluticasone/Salmeterol (Advair Diskus 100/50) 1 puffs INH BID [facility] Stop: 10/03/18 13:19 Last Admin: 09/07/18 08:29 Dose: Not Given Documented by: Tramadol HCl (Ultram) 25 mg PO Q4H PRN PRN Reason: Pain Stop: 09/30/18 03:45
[2018-09-07] MEDS: methylPREDNISolone 80 MG in SYRINGE 0 ML IV SCH (21:12)
[2018-09-07] MEDS: ARTIFICIAL TEARS OP SCH (21:13)
[2018-09-08] MEDS: IPRATROPIUM BROMIDE NEB SOLN 0.02% 2.5 ML VIAL INH SCH ×4 (01:57→19:00)
[2018-09-08] MEDS: LEVALBUTEROL HCL 0.63 MG/3 ML NEB NEB SCH ×4 (01:57→19:00)
[2018-09-08] MEDS ORDERED: FUROSEMIDE 20 MG in SYRINGE 0 ML IV ONE (03:32)
[2018-09-08] MEDS ORDERED: POTASSIUM CHLORIDE 10 MEQ TABCR PO STA (03:32)
[2018-09-08] MEDS: Heparin Adult STANDARD Wt-Based Dextrose 5% 25,000 units/500 mL IV SCH (03:54)
[2018-09-08] MEDS: methylPREDNISolone 80 MG in SYRINGE 0 ML IV SCH ×2 (03:54→11:42)
[2018-09-08] MEDS: LEVOTHYROXINE SODIUM 50 MCG TABLET PO SCH (05:27)
[2018-09-08 05:41] LABS: Hematocrit (blood only) 31.1 % (37-47); Hemoglobin 10.7 g/dL (12.0-16.0); Mean Corpuscular Hgb Conc 34.4 g/dL (32-36); Mean Corpuscular Volume 93.7 fL (80-100); Mean Platelet Volume 10.4 fL (7.4-10.4); Platelet Count 308 K/uL (130-400); RDW Coefficient of Variation 12.9 % (11.5-14.5); RDW Standard Deviation 44.4 fL (36.4-46.3); Red Blood Count 3.32 M/uL (4.2-5.4); White Blood Count 9.46 K/uL (4.8-10.8)
[2018-09-08 05:59] LABS: BUN Creatinine Ratio 24.7 (10-20); Calcium 8.3 mg/dl (8.5-10.1); Creatinine Clr Calc Pharmacy 71.4 ml/min; Est GFR (African American) 97.5; Est GFR (Non-African American) 84.1
[2018-09-08 06:51] LABS: Partial Thromboplastin Ratio 3.9
[2018-09-08 06:56] LABS: Partial Thromboplastin Time 105.2 Seconds (21.0-31.0)
[2018-09-08] MEDS ORDERED: INSULIN GLARGINE SOLOSTAR 100 UNITS/ML 3 ML PEN SC ONE ×2 (07:30→21:00)
[2018-09-08] MEDS: FLUTICASONE/SALMETEROL 100/50 (ADVAIR) 14 PUFF/1 INHALER INH SCH ×3 (08:07→20:52)
[2018-09-08] MEDS: CEFEPIME 2,000 MG in SYRINGE 7.5 ML IV SCH ×3 (08:07→23:44)
[2018-09-08] MEDS: LISINOPRIL 5 MG TAB PO SCH (08:08)
[2018-09-08] MEDS: CLOTRIMAZOLE 10 MG TROCHE BUCCAL SCH ×3 (08:08→14:19)
[2018-09-08] MEDS: PANTOprazole 40 MG TAB PO SCH (08:08)
[2018-09-08] MEDS: AMLODIPINE BESYLATE 5 MG TAB PO SCH (08:08)
[2018-09-08] MEDS: ROSUVASTATIN CALCIUM 10 MG TAB PO SCH (08:08)
[2018-09-08] MEDS: CEROVITE ADV FORMULA TAB PO SCH (08:08)
[2018-09-08] MEDS: INSULIN ASPART 100 UNITS/ML 3 ML PEN SC SCH ×5 (08:19→23:42)
[2018-09-08] MEDS: ERYTHROMYCIN OP OINT 5 MG/GM 3.5 GM TUBE OP SCH ×4 (10:28→20:54)
[2018-09-08] MEDS ORDERED: INSULIN ASPART 100 UNITS/ML 3 ML PEN SC SCH (12:06)
--- NOTE | 2018-09-08 12:55 | Hospitalist Progress Note ---
Date of Service September 08, 2018 Assessment & Plan (1) Sepsis: Secondary to pacemaker site infection, bacteremia 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 Immunocompromised patient with Sjogren's syndrome on chronic steroid Rx S/Post removal of pacemaker on 09/01/2018 Wound culture: Positive for Pseudomonas and MSSA Blood cultures: Positive for MSSA Continue cefepime IV Appreciate ID input and recommendation for reimplantation of pacemaker sometime next week/Thursday Appreciate cardiology input and recommendation Acute on Chronic Hypoxic Respiratory Failure Interstitial lung disease History of Sjogren's syndrome with lung involvement On chronic prednisone [address] chest ordered: Positive for right lower lobe pulmonary emboli Appreciate pulmonary input and recommendation IV Lasix as needed and BiPAP for shortness of breath Has been on intravenous Solu-Medrol and nebulized bronchodilator Hypertension Amlodipine increased to 10 mg p.o. daily for better BP control Lisinopril 5 mg p.o. daily added Monitor blood pressure DM2 ISS Blood sugar has been noted to be high secondary to nasal steroid SSI-parameters have been changed DVT prophylaxis. On heparin drip Full code Disposition Pending DVT prophylaxis. Lovenox subcu Full code Discussed with the patient Subjective 09/08 The patient was seen and examined in telemetry unit Complaints of weakness and shortness of breath on exertion Denies any symptoms at rest No fever and/or chills Review of Systems Review of Systems: All systems reviewed and are unremarkable except as noted below Constitutional: + malaise; no fever and no chills Respiratory: + dyspnea on exertion Cardiovascular: no chest pain Physical Exam Physical Exam: No apparent distress at rest and sitting on a chair outside bed Constitutional: + ill appearing (Without acute distress, certainly appears improved compared to 08/31/2018), + cachectic and comfortable; no acute distress Eyes: PERRL, conjunctivae normal, anicteric sclerae ENMT: external ear and nose normal, oropharynx normal Mallampati Class: II Neck: trachea midline, no thyromegaly normal visual inspection; neck nontender Respiratory: normal respiratory effort; no respiratory distress and does not use accessory muscles Auscultation: + diminished lung sounds and + crackles (Bilaterally at the bases); no rales, no rhonchi and no wheezes Cardiovascular: Rate/Rhythm: regular rate and regular rhythm Heart Sounds: normal S1 and normal S2; no gallop, no murmur and no cardiac rub Vessels: normal peripheral pulses; no JVD Extremities: no edema Chest (Breasts): Chest: + pacemaker (Left infraclavicular pacemaker pocket with ongoing mild erythema, and drainage from incision site, unchanged compared to yesterday. She states that it was tender to palpation yesterday and this has improved.) Gastrointestinal (Abdomen): Inspection/Auscultation: abdomen normal to inspection and normal bowel sounds Percussion/Palpation: abdomen soft Musculoskeletal: no cyanosis or clubbing, extremities motor strength 5/5 Spine: thoracic spine normal to inspection and lumbar spine normal to inspection; no pain with cervical ROM and no cervical spinal tenderness Skin: no rashes, warm and dry normal turgor and + wound (Pacemaker pocket with erythema drainage); no rashes Neurologic: moves all extremities and awake; no focal motor deficits Motor/Sensory: no sensory deficit Generally weak Psychiatric: A+Ox3, euthymic affect Orientation: alert, oriented x 3 and cooperative Lymphatic: no cervical or axillary lymphadenopathy no inguinal lym phadenopathy Results & Data Vital Signs (Past 12 Hours) Vital Signs Temp Pulse Pulse Resp BP BP Pulse Ox 09/08/18 11:17 37 C 58 L 18 136/62 99 09/08/18 08:02 37.5 C 52 L 22 162/71 H 93 09/08/18 08:00 48 L 09/08/18 06:58 48 L 48 L 25 H 96 09/08/18 03:00 36.9 C 55 L 19 156/71 H 97 Laboratory Results Short CBC 09/08/18 Range/Units 05:15 WBC 9.46 (4.8-10.8) K/uL Hgb 10.7 L (12.0-16.0) g/dL Hct 31.1 L (37-47) % Plt Count 308 (130-400) K/uL BMP 09/08/18 05:15 Sodium 127 L Potassium 4.0 D Chloride 88 L Carbon Dioxide 31 BUN 16 Creatinine 0.63 Glucose 201 H Calcium 8.3 L Medications Administered Current Inpatient Medications Acetaminophen (Tylenol) 650 mg PO Q4H PRN PRN Reason: Pain or Fever Stop: 09/30/18 03:45 Last Admin: 09/06/18 02:07 Dose: 650 mg Documented by: Al Hydrox/Mg Hydrox/Simethicone (Maalox) 30 ml PO Q6H PRN PRN Reason: Dyspepsia Stop: 10/07/18 09:11 Last Admin: 09/07/18 09:39 Dose: 30 ml Documented by: Albuterol (Ventolin Hfa) 2 puffs INH Q6H PRN PRN Reason: Shortness Of Breath Stop: 10/01/18 17:29 Amlodipine Besylate (Norvasc) 10 mg PO DAILY [facility] Stop: 10/05/18 08:59 Last Admin: 09/08/18 08:08 Dose: 10 mg Documented by: Artificial Tears (Artificial Tears) 1 drops OP HS [facility] Stop: 09/30/18 20:59 Last Admin: 09/07/18 21:13 Dose: 1 drops Documented by: Clotrimazole (Mycelex) 10 mg BUCCAL [id number] [facility] Stop: 09/08/18 18:59 Last Admin: 09/08/18 11:42 Dose: 10 mg Documented by: Dextrose (Dextrose 50%) 25 - 50 ml IV UD PRN; Protocol PRN Reason: Hypoglycemia Protocol Stop: 09/30/18 03:45 Docusate Sodium (Colace) 100 mg PO BID PRN PRN Reason: CONSTIPATION Stop: 09/30/18 06:29 Erythromycin (Erythromycin) 1 appln OP QID [facility] Stop: 09/10/18 08:59 Last Admin: 09/08/18 11:42 Dose: Not Given Documented by: Glucagon (Glucagen) 1 mg SQ UD PRN; Protocol PRN Reason: Hypoglycemia Protocol Stop: 09/30/18 03:45 Glucose (Glucose 40%) 15 - 30 gm PO UD PRN; Protocol PRN Reason: Hypoglycemia Protocol Stop: 09/30/18 03:45 Glucose (Dex4 Glucose) 4 - 8 tabs PO UD PRN; Protocol PRN Reason: Hypoglycemia Protocol Stop: 09/30/18 03:45 Hydromorphone HCl (Dilaudid) 0.25 mg IV Q3H PRN PRN Reason: Pain Stop: 09/14/18 03:45 Promethazine HCl 12.5 mg/ (Sodium Chloride) 50.5 mls @ 202 mls/hr IV Q6H PRN PRN Reason: Nausea And Vomiting Stop: 09/30/18 00:49 Last Infusion: 09/07/18 12:07 Dose: Infused Documented by: Heparin Sodium/Dextrose (Heparin Sodium/Dextrose) 25,000 units in 500 mls @ 20 mls/hr IV .Q24H [facility]; Protocol Stop: 10/05/18 15:29 Last Titration: 09/08/18 08:00 Dose: 1,000 units/hr, 20 mls/hr Documented by: Cefepime HCl 2,000 mg/ Syringe 20 mls @ 5 mls/min IV Q8H [facility]; Protocol Stop: 09/16/18 10:59 Last Admin: 09/08/18 08:07 Dose: 5 mls/min Documented by: Methylprednisolone 60 mg/ (Syringe) 0.96 mls @ 1.5 mls/min IV Q8H [facility] Stop: 09/09/18 12:01 Insulin Aspart (Novolog Flexpen) 0 units SC ACHS [facility]; Protocol Stop: 10/02/18 20:59 Ioversol (Optiray 320 125ml) 120 ml IV ONCE PRN PRN Reason: Interaction Checking Stop: 09/09/18 10:43 Last Admin: 09/05/18 10:45 Dose: 120 ml Documented by: Ipratropium [place] (Atrovent 0.02% 0.5mg/2.5ml) 0.5 mg NEB Q4H PRN PRN Reason: sob Stop: 10/01/18 17:29 Ipratropium [place] (Atrovent 0.02% 0.5mg/2.5ml) 0.5 mg INH Q6R [facility] Stop: 10/03/18 13:59 Last Admin: 09/08/18 06:55 Dose: 0.5 mg Documented by: Levalbuterol HCl (Xopenex 0.63 Mg/3 Ml Neb) 0.63 mg NEB Q6R [facility] Stop: 10/03/18 13:59 Last Admin: 09/08/18 06:56 Dose: 0.63 mg Documented by: Levothyroxine Sodium (Synthroid) 50 mcg PO DAILYBB [facility] Stop: 09/30/18 06:29 Last Admin: 09/08/18 05:27 Dose: 50 mcg Documented by: Lisinopril (Zestril) 5 mg PO QAM [facility] Stop: 10/06/18 12:14 Last Admin: 09/08/18 08:08 Dose: 5 mg Documented by: Miscellaneous (Order Awaiting Action) 1 ea N/A QS [facility] Stop: 09/30/18 07:59 Last Admin: 09/08/18 08:06 Dose: Not Given Documented by: Miscellaneous (Carbohydrates For Hypoglycemia) 15 - 30 gm PO UD PRN PRN Reason: Hypoglycemia Treatment Stop: 09/30/18 03:45 Miscellaneous Information (Consult Glycemic Management Pharmacy) 1 ea N/A UD PRN PRN Reason: Consult Stop: 10/02/18 07:11 Miscellaneous Information (Cefepime Consult Active) 1 ea N/A UD PRN PRN Reason: Consult Stop: 10/02/18 07:11 Multivitamins/Minerals (Multivitamin W/ Minerals Tab) 1 tab PO DAILY [facility]; Protocol Stop: 09/30/18 08:59 Last Admin: 09/08/18 08:08 Dose: 1 tab Documented by: Oxycodone/Acetaminophen (Percocet 5mg/325mg) 1 - 2 tab PO Q6H PRN PRN Reason: Moderate-Severe Pain Stop: 09/15/18 14:04 Pantoprazole Sodium (Protonix) 40 mg PO DAILY [facility]; Protocol Stop: 09/30/18 08:59 Last Admin: 09/08/18 08:08 Dose: 40 mg Documented by: Prednisone (Prednisone) 10 mg PO QAM [facility] Stop: 10/03/18 08:59 Last Admin: 09/03/18 08:48 Dose: 10 mg Documented by: Prednisone (Prednisone) 40 mg PO DAILY [facility] Stop: 10/03/18 17:14 Last Admin: 09/07/18 11:57 Dose: Not Given Documented by: Rosuvastatin Calcium (Crestor) 10 mg PO DAILY [facility] Stop: 09/30/18 08:59 Last Admin: 09/08/18 08:08 Dose: 10 mg Documented by: Fluticasone/Salmeterol (Advair Diskus 100/50) 1 puffs INH BID [facility] Stop: 10/03/18 13:19 Last Admin: 09/08/18 08:11 Dose: Not Given Documented by: Tramadol HCl (Ultram) 25 mg PO Q4H PRN PRN Reason: Pain Stop: 09/30/18 03:45
[2018-09-08 13:42] LABS: Partial Thromboplastin Ratio 2.1
[2018-09-08 13:48] LABS: Partial Thromboplastin Time 57.1 Seconds (21.0-31.0)
[2018-09-08] MEDS ORDERED: INSULIN HUMAN REGULAR PER UNIT 5 UNITS in SYRINGE 4.95 ML IV ONE (14:00)
--- NOTE | 2018-09-08 14:20 | Pharmacy Report ---
Pharmacy Glycemic Short Note 2 - Date of Service September 08, 2018 - Glycemic Short BSG Results (Last 24 hours): 09/07/18 09/07/18 09/08/18 16:13 20:55 05:15 Glucose 201 H POC Glucose 144 H 228 H 09/08/18 09/08/18 09/08/18 07:26 11:14 11:15 Glucose POC Glucose 221 H 353 H* 341 H* Outpatient Anti-diabetic Regimen: * Metformin 500 mg po BID * Note: also on prednisone 10 mg po daily * A1c = 7.1% on 09/02/18 Risk Factors for Insulin Resistance: * Steroids: increased yesterday from prednisone 40 mg po daily to methylprednisolone 80 mg IV q8h x24 hours then 60 mg IV q8h x24 hours * Infection: MSSA bacteremia 2nd infected pacemaker with MSSA and Pseudomonas isolated from chest culture. On cefepime. * Recent Surgery: POD 7 s/p removal of infected pacemaker * Diet: T2DM ASSESSMENT: * 83 yo F now with poor glycemic control as inpatient x24 hours 2nd steroid increase yesterday * Will switch back to Lantus (from NPH). Will close to double dose as compared to previous 2nd steroid-related effects. Anticipate change back to NPH once patient back on prednisone qAM. * Will significantly tighten Novolog parameters PLAN FOR INPATIENT GLYCEMIC CONTROL: * Holding outpatient oral diabetes medications * Insulin regular 5 units IV x1 with lunch for BSG >300 mg/dL * If BSG's continue to be significantly elevated, patient may benefit from in sulin drip * Basal insulin: Lantus 22 units x1 now. Additional 10 units this evening for BSG >180 mg/dL * Bolus insulin * NovoLog per scale ACHS * Goal range: 120-160 mg/dL * Correction factor: 20 mg/dL/unit * Carb ratio: 6 g CHO/unit PLAN FOR DISCHARGE: * Continue metformin * Per ICU rounds discussion earlier in admission- despite HbA1c of 7.1%, patient may also benefit from initiation of outpatient insulin to help further prevent diabetic complications (significant infection/bacteremia). If so, would recommend insulin NPH once daily with breakfast/prednisone.
--- NOTE | 2018-09-08 17:19 | Cardiology Progress Note ---
Date of Service September 08, 2018 Assessment & Plan (1) Pulmonary embolus: (2) Bacteremia due to methicillin susceptible Staphylococcus aureus (MSSA): (3) Mobitz type 2 second degree atrioventricular block: (4) Infection of pacemaker pocket: (5) Interstitial lung disease: 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 Pacemaker extracted 09/01/2018 without complication. Remains sinus rhythm/tachycardia with 2-1 AV block on telemetry. Respiratory status improved with IV steroids and diuretic therapy. Recommend Lasix 20 mg p.o. daily. Lisinopril and amlodipine as previously ordered. Anticoagulation as per pulmonary medicine. Antibiotics per infectious disease specialist. Subjective Patient seen and examined the bedside. Respiratory status improved with diuretic therapy and IV corticosteroids. Denies chest pain or unusual shortness of breath. No palpitations. Denies lightheadedness, dizziness, syncope, or near syncope. Review of Systems Review of Systems: All systems reviewed & are unremarkable except as noted in HPI & below Physical Exam Physical Exam: General: NAD, AAO x3, well nourished. HEENT: Normocephalic. Atraumatic. Conjunctiva pink, no scleral icterus. Neck: No carotid bruits, the carotid upstrokes are brisk. No JVD. No HJR. Chest: Left-sided pacemaker site dressing clean, dry, intact. No erythema or drainage. Heart: Regular borderline tachycardic, normal S-1 and S-2 no S-3 or S-4 gallop. No murmurs or rub appreciated. PMI is not displaced. No RV heave. Lungs: + Dry crackles bilateral. No rhonchi. Mild end expiratory wheezing. Abdomen: Normal bowel sounds. Soft. Nontender. No masses or organomegaly. No abdominal bruits. Extremities: No clubbing, cyanosis, or edema. Pulses: radial=2/4, Dorsalis pedis =2/4, posterior tibial=2/4. Neuro: Cranial nerves grossly intact. No focal motor deficit. Results & Data Vital Signs (Past 12 Hours) Vital Signs Temp Pulse Pulse Resp BP BP Pulse Ox 09/08/18 15:21 36.6 C 58 L 20 148/67 H 98 09/08/18 14:56 86 L 09/08/18 13:09 60 20 09/08/18 11:17 37 C 58 L 18 136/62 99 09/08/18 08:02 37.5 C 52 L 22 162/71 H 93 09/08/18 08:00 48 L 09/08/18 06:58 48 L 48 L 25 H 96 Laboratory Results Laboratory Results - last 24 hr 09/07/18 09/08/18 09/08/18 20:55 05:15 05:15 WBC 9.46 RBC 3.32 L Hgb 10.7 L Hct 31.1 L MCV 93.7 MCH 32.2 MCHC 34.4 RDW Std Deviation 44.4 RDW Coeff of Gabriel 12.9 Plt Count 308 MPV 10.4 APTT PTT Ratio Sodium 127 L Potassium 4.0 D Chloride 88 L Carbon Dioxide 31 Anion Gap 8.0 BUN 16 Creatinine 0.63 Est Cr Clr Drug Dosing 71.4 Est GFR ( Amer) 97.5 Est GFR (Non-Af Amer) 84.1 BUN/Creatinine Ratio 24.7 H Glucose 201 H POC Glucose 228 H Calcium 8.3 L 09/08/18 09/08/18 09/08/18 05:20 07:26 11:14 WBC RBC Hgb Hct MCV MCH MCHC RDW Std Deviation RDW Coeff of Gabriel Plt Count MPV APTT 105.2 H* PTT Ratio 3.9 Sodium Potassium Chloride Carbon Dioxide Anion Gap BUN Creatinine Est Cr Clr Drug Dosing Est GFR ( Amer) Est GFR (Non-Af Amer) BUN/Creatinine Ratio Glucose POC Glucose 221 H 353 H* Calcium 09/08/18 09/08/18 09/08/18 11:15 13:13 16:25 WBC RBC Hgb Hct MCV MCH MCHC RDW Std Deviation RDW Coeff of Gabriel Plt Count MPV APTT 57.1 H* PTT Ratio 2.1 Sodium Potassium Chloride Carbon Dioxide Anion Gap BUN Creatinine Est Cr Clr Drug Dosing Est GFR ( Amer) Est GFR (Non-Af Amer) BUN/Creatinine Ratio Glucose POC Glucose 341 H* 96 Calcium (1) Pulmonary embolus Acute cor pulmonale presence: without acute cor pulmonale Chronicity: acute Pulmonary embolism type: unspecified Qualified Code(s): I26.99 - Other pulmonary embolism without acute cor pulmonale
--- NOTE | 2018-09-08 17:23 | Cardiology Progress Note ---
Date of Service September 08, 2018 Subjective Pt packing is still very moist and draining. She is on IV heparin due to distal PE, her rhythm remains in 2:1AV block in the 60s. Her chronic SOB is back to baseline-improved with the diuretics. Her repeat Blood cultures are negative. Since pt has a stable although distal AV block there is no saul to put a new right sided pacemaker in especially with the prior ppm pocket still draining and the new acute PE. Recommend 4 weeks of IV abx. Continue with daily wound packing until it is dry then can stop and allow wound to heal with secondary healing. ok to start bridging with coumadin and heparin unless pulmonary prefers a NOAC- will defer to them. Would avoid reimplanting new right sided pacemaker as long as patient remains stable until IV abx are complete in about sep would be the earliest. She will need f/u in our [facility] device clinic on a Thursday upon discharge so we can keep an eye on the healing left sided pocket. Results & Data Vital Signs (Past 12 Hours) Vital Signs Temp Pulse Pulse Resp BP BP Pulse Ox 09/08/18 15:21 36.6 C 58 L 20 148/67 H 98 09/08/18 14:56 86 L 09/08/18 13:09 60 20 09/08/18 11:17 37 C 58 L 18 136/62 99 09/08/18 08:02 37.5 C 52 L 22 162/71 H 93 09/08/18 08:00 48 L 09/08/18 06:58 48 L 48 L 25 H 96
[2018-09-08] MEDS: methylPREDNISolone 60 MG in SYRINGE 0 ML IV SCH (20:53)
[2018-09-08] MEDS: ARTIFICIAL TEARS OP SCH (20:53)
--- NOTE | 2018-09-08 23:01 | Infectious Disease Progress Nt ---
Date of Service September 08, 2018 Assessment & Plan (1) Infection of pacemaker pocket: Patient with infected pacemaker pocket with MSSA bacteremia with staph aureus and Pseudomonas growing in pacemaker pocket. Patient to continue on IV cefepime, will likely require prolonged IV antibiotics. Given initial cultures and follow up, would recommend replacement of pacemaker early next week if f/u cultures remain negative.Discussed with hospitalst. Will follow. (2) Bacteremia due to methicillin susceptible Staphylococcus aureus (MSSA): (3) Infection due to gram-negative anaerobic organism: Subjective Follow-up for pacemaker site infection. Feeling better today, offers no new complaints. Remains afebrile. Continues tolerating antibiotics without apparent difficulty. Review of Systems Review of Systems: All systems reviewed & are unremarkable except as noted in HPI & below Physical Exam Constitutional: WD/WN, vitals as above comfortable; no acute distress Eyes: PERRL, conjunctivae normal, anicteric sclerae ENMT: external ear and nose normal, oropharynx normal Neck: trachea midline, no thyromegaly neck nontender Respiratory: normal respiratory effort, lungs clear to auscultation normal percussion; no respiratory distress and does not use accessory muscles Cardiovascular: Rate/Rhythm: regular rate and regular rhythm Heart Sounds: normal S1 and normal S2; no gallop, no murmur and no cardiac rub Vessels: normal peripheral pulses; no JVD Gastrointestinal (Abdomen): normal bowel sounds, soft, nontender, no hepatosplenomegaly Musculoskeletal: no cyanosis or clubbing, extremities motor strength 5/5 Spine: thoracic spine normal to inspection and lumbar spine normal to inspection; no cervical spinal tenderness Skin: no rashes, warm and dry normal turgor and + wound (Pacemaker pocket with erythema drainage); no rashes Neurologic: patellar DTR's 2+ bilat, sensation intact moves all extremities and awake; no focal motor deficits Motor/Sensory: no sensory deficit Psychiatric: A+Ox3, euthymic affect Orientation: cooperative Lymphatic: no cervical or axillary lymphadenopathy no inguinal lymphadenopathy Results & Data Vital Signs (Past 12 Hours) Vital Signs Temp Pulse Resp BP BP Pulse Ox 09/08/18 22:57 36.5 C 64 20 170/78 H 97 09/08/18 19:44 36.7 C 58 L 20 151/68 H 99 09/08/18 19:02 59 L 18 95 09/08/18 15:21 36.6 C 58 L 20 148/67 H 98 09/08/18 14:56 86 L 09/08/18 13:09 60 20 09/08/18 11:17 37 C 58 L 18 136/62 99 Laboratory Results Short CBC 09/08/18 Range/Units 05:15 WBC 9.46 (4.8-10.8) K/uL Hgb 10.7 L (12.0-16.0) g/dL Hct 31.1 L (37-47) % Plt Count 308 (130-400) K/uL BMP 09/08/18 05:15 Sodium 127 L Potassium 4.0 D Chloride 88 L Carbon Dioxide 31 BUN 16 Creatinine 0.63 Glucose 201 H Calcium 8.3 L Diagnostic Findings Microbiology 09/02/18 08:20 Blood Aerobic Blood Culture - Final No growth in Aerobic bottle after 5 days. 09/02/18 08:20 Blood Anaerobic Blood Culture - Final No growth in Anaerobic bottle after 5 days. 09/02/18 08:08 Blood Aerobic Blood Culture - Final No growth in Aerobic bottle after 5 days. 09/02/18 08:08 Blood Anaerobic Blood Culture - Final No growth in Anaerobic bottle after 5 days. 08/31/18 Unknown Chest Gram Stain - Final 08/31/18 Unknown Chest Wound Culture - Final Pseudomonas aeruginosa Staphylococcus aureus 08/30/18 23:59 Blood Aerobic Blood Culture - Final Staphylococcus aureus 08/30/18 23:59 Blood Anaerobic Blood Culture - Final Staphylococcus aureus 08/30/18 23:55 Blood Aerobic Blood Culture - Final Staphylococcus aureus 08/30/18 23:55 Blood Anaerobic Blood Culture - Final Staphylococcus aureus
[2018-09-09] MEDS: LEVALBUTEROL HCL 0.63 MG/3 ML NEB NEB SCH ×4 (01:48→18:50)
[2018-09-09] MEDS: IPRATROPIUM BROMIDE NEB SOLN 0.02% 2.5 ML VIAL INH SCH ×4 (01:49→18:50)
[2018-09-09] MEDS: Heparin Adult STANDARD Wt-Based Dextrose 5% 25,000 units/500 mL IV SCH ×2 (03:40→23:47)
[2018-09-09] MEDS: INSULIN ASPART 100 UNITS/ML 3 ML PEN SC SCH ×5 (03:44→21:19)
[2018-09-09] MEDS: methylPREDNISolone 60 MG in SYRINGE 0 ML IV SCH ×2 (03:44→12:58)
[2018-09-09 05:34] LABS: Basophils # (auto) 0.01 K/uL (0-0.2); Basophils % (auto) 0.1 %; Hematocrit (blood only) 27.4 % (37-47); Hemoglobin 9.2 g/dL (12.0-16.0); Immature Granulocytes # (auto) 0.07 K/uL (0.00-0.02); Immature Granulocytes % (auto) 0.6 %; Lymphocytes # (auto) 0.47 K/uL (1.2-3.4); Lymphocytes % (auto) 3.7 %; Mean Corpuscular Hgb Conc 33.6 g/dL (32-36); Mean Corpuscular Volume 94.5 fL (80-100); Mean Platelet Volume 9.8 fL (7.4-10.4); Monocytes # (auto) 0.57 K/uL (0.11-0.59); Monocytes % (auto) 4.5 %; Neutrophils # (auto) 11.43 K/uL (1.4-6.5); Neutrophils % (auto) 91.1 %; Platelet Count 269 K/uL (130-400); RDW Standard Deviation 44.9 fL (36.4-46.3); White Blood Count 12.55 K/uL (4.8-10.8)
[2018-09-09 05:55] LABS: Partial Thromboplastin Ratio 2.5
[2018-09-09 05:57] LABS: BUN Creatinine Ratio 28.2 (10-20); Calcium 8.2 mg/dl (8.5-10.1); Creatinine Clr Calc Pharmacy 51.3 ml/min; Est GFR (African American) 70.4; Est GFR (Non-African American) 60.8; Potassium 4.1 mmol/L (3.5-5.1)
[2018-09-09] MEDS: LEVOTHYROXINE SODIUM 50 MCG TABLET PO SCH (06:22)
[2018-09-09 06:46] LABS: Partial Thromboplastin Time 63.9 Seconds (21.0-31.0)
[2018-09-09] MEDS ORDERED: INSULIN GLARGINE SOLOSTAR 100 UNITS/ML 3 ML PEN SC ONE (09:00)
[2018-09-09] MEDS: PANTOprazole 40 MG TAB PO SCH (09:13)
[2018-09-09] MEDS: CEFEPIME 2,000 MG in SYRINGE 7.5 ML IV SCH ×3 (09:13→23:47)
[2018-09-09] MEDS: CEROVITE ADV FORMULA TAB PO SCH (09:13)
[2018-09-09] MEDS: FLUTICASONE/SALMETEROL 100/50 (ADVAIR) 14 PUFF/1 INHALER INH SCH ×2 (09:14→21:11)
[2018-09-09] MEDS: AMLODIPINE BESYLATE 5 MG TAB PO SCH (09:14)
[2018-09-09] MEDS: ROSUVASTATIN CALCIUM 10 MG TAB PO SCH (09:14)
[2018-09-09] MEDS: LISINOPRIL 5 MG TAB PO SCH (09:15)
[2018-09-09] MEDS: FUROSEMIDE 20 MG TAB PO SCH (09:15)
[2018-09-09] MEDS: ERYTHROMYCIN OP OINT 5 MG/GM 3.5 GM TUBE OP SCH ×4 (09:29→21:12)
--- NOTE | 2018-09-09 10:24 | Pharmacy Report ---
Pharmacy Glycemic Short Note 2 - Date of Service September 09, 2018 - Glycemic Short BSG Results (Last 24 hours): 09/08/18 09/08/18 09/08/18 11:14 11:15 16:25 Glucose POC Glucose 353 H* 341 H* 96 09/08/18 09/08/18 09/09/18 20:21 23:39 03:32 Glucose POC Glucose 286 H 247 H 174 H 09/09/18 09/09/18 05:22 07: Glucose 164 H POC Glucose 177 H Outpatient Anti-diabetic Regimen: * Metformin 500 mg po BID * Note: also on prednisone 10 mg po daily * A1c = 7.1% on 09/02/18 Risk Factors for Insulin Resistance: * Steroids: increased 09/07 from prednisone 40 mg po daily to methylprednisolone 80 mg IV q8h x24 hours then 60 mg IV q8h x24 hours (last dose today @ 1200) * Infection: MSSA bacteremia 2nd infected pacemaker with MSSA and Pseudomonas isolated from chest culture. On cefepime. * IVF: heparin drip mixed in D5 @ 20 mL/hr (for PE) * Recent Surgery: POD 8 s/p removal of infected pacemaker * Diet: T2DM ASSESSMENT: * 83 yo F now with variable glycemic control as inpatient 2nd steroid increase * Steroid burst scheduled to stop today - patient will need ongoing steroids by at least tomorrow AM (home dose = prednisone 10 mg), but not currently ordered * Will continue Lantus this AM as methylprednisolone will continue through at least this afternoon. Patient received a total of 32 units Lantus yesterday (10 units last night). AM fasting BSG was elevated to 177 mg/dL today. Will maintain similar dose to yesterday despite steroid discontinuation as AM fasting still elevated. Anticipate change back to NPH once patient back on prednisone qAM. * BSG decreased significantly and appropriately in response to IV insulin at lunch yesterday, but tighter CHO ratio at dinner still insufficient to prevent significant hyperglycemia at HS. Will maintain same Novolog parameters for now, as steroid dose is slightly lower than yesterday and thus it may be sufficient to better control post-prandial elevations in BSG. May need to tighten CHO ratio at lunch. * Lunch BSG >300 mg/dL per RN phone call/communication to pharmacy staff. Will give IV insulin as correction (~0.1 unit/kg, which will serve as correctional insulin). Will use Novolog to cover CHO only (no correctional) at a tighter CHO ratio than previous PLAN FOR INPATIENT GLYCEMIC CONTROL: * Hold outpatient metformin * Basal insulin: Lantus 20 units x1 now (in addition to 10 units yesterday evening) * Insulin regular 7 units IV x1 at lunch (to cover correctional insulin) * Bolus insulin * NovoLog per scale ACHS with one overnight check * Goal range: 120-160 mg/dL * Correction factor: 20 mg/dL/unit (no correction with Novolog at lunch - using IV instead) * Carb ratio: 5 g CHO/unit PLAN FOR DISCHARGE: * Continue metformin * Per ICU rounds discussion earlier in admission- despite HbA1c of 7.1%, patient may also benefit from initiation of outpatient insulin to help further prevent diabetic complications (significant infection/bacteremia). If so, would recommend insulin NPH once daily with breakfast/prednisone.
--- NOTE | 2018-09-09 11:15 | Pulmonology Progress Note ---
Date of Service September 09, 2018 Assessment & Plan (1) Respiratory failure: The patient was started on BiPAP with significant improvement in her breathing and also improvement in oxygenation. Now on 2 L NC O2 and is oxygenating well. The patient also has chronic interstitial lung disease and s he was started on now IV Solu-Medrol with significant improvement. Overall she has improved and we are going to continue with this current plan of care as prescribed. (2) Pulmonary embolus: Remains stable on anticoagulation. Pulmonary embolism type: unspecified Chronicity: acute Acute cor pulmonale presence: without acute cor pulmonale Qualified Code(s): I26.99 - Other pulmonary embolism without acute cor pulmonale (3) Bacteremia due to methicillin susceptible Staphylococcus aureus (MSSA): On broad spectrum IV antibiotics. Will continue with that. (4) Interstitial lung disease: On IV steroids, which will be tapered off as D/W Dr. Mckinnon. Follow up with her lung specialist as soon as possible from the out patient. (5) Sjogren's syndrome with lung involvement: Overall remains stable on current plan of care. Will continue with steroids as prescribed. (6) Pulmonary hypertension: Stable at this time. Subjective The patient was seen and examined. The patient is sitting in the chair and breathing comfortably on 2 L NC O2 and saturating at 96 %. Also denies any SOB or cough or chest pain or abdominal pain or N/Vomiting. Review of Systems Review of Systems: 10 systems ROS is negative except mentioned in history. Physical Exam Physical Exam: Elderly female resting comfortably not in any acute distress. Currently she is on a 2 L NC O2.. HEENT: Pupils are reactive to light and accommodation. Unable to examine the oral cavity because of recent being on a BiPAP with a mask covering her nose and oral cavity. Neck: The neck is supple, no JVD and no cervical no supraclavicular adenopathy. Chest: Bilateral air entry with coarse breathing and fine crackles bilaterally. No wheezing no rhonchi heard. The breathing overall has improved since this morning. Heart: S1-S2 heard. Not able to appreciate murmur or gallop or rub. Abdomen: The abdomen is soft, nontender, bowel sounds are positive, no mass felt. Neuro: The patient is alert and awake and follows simple commands and moves all the extremities. There is no neuro deficit at this time. Extremities: No clubbing, no edema, nontender calf muscles. Skin: No rash, no lesions seen. Results & Data Vital Signs (Past 12 Hours) Vital Signs Temp Pulse Pulse Resp BP Pulse Ox 09/09/18 07:34 36.4 C L 57 L 19 179/75 H 98 09/09/18 07:22 68 18 96 09/09/18 02:44 36.5 C 58 L 21 172/76 H 95 09/09/18 01:49 59 L 16 96 09/08/18 23:10 59 L 32 H 96 Laboratory Results Abnormal lab results 09/08/18 09/08/18 09/08/18 Range/Units 11:14 11:15 13:13 WBC (4.8-10.8) K/uL RBC (4.2-5.4) M/uL Hgb (12.0-16.0) g/dL Hct (37-47) % Immature Gran # (Auto) (0.00-0.02) K/uL Neut # (Auto) (1.4-6.5) K/uL Lymph # (Auto) (1.2-3.4) K/uL APTT 57.1 H* (21.0-31.0) Seconds Sodium (136-145) mmol/L Chloride (98-107) mmol/L Carbon Dioxide (21-32) mmol/L BUN (7-18) mg/dl BUN/Creatinine Ratio (10-20) Glucose (70-99) mg/dl POC Glucose 353 H* 341 H* (70-99) Calcium (8.5-10.1) mg/dl 09/08/18 09/08/18 09/09/18 Range/Units 20:21 23:39 03:32 WBC (4.8-10.8) K/uL RBC (4.2-5.4) M/uL Hgb (12.0-16.0) g/dL Hct (37-47) % Immature Gran # (Auto) (0.00-0.02) K/uL Neut # (Auto) (1.4-6.5) K/uL Lymph # (Auto) (1.2-3.4) K/uL APTT (21.0-31.0) Seconds Sodium (136-145) mmol/L Chloride (98-107) mmol/L Carbon Dioxide (21-32) mmol/L BUN (7-18) mg/dl BUN/Creatinine Ratio (10-20) Glucose (70-99) mg/dl POC Glucose 286 H 247 H 174 H (70-99) Calcium (8.5-10.1) mg/dl 09/09/18 09/09/18 09/09/18 Range/Units 05:22 05:22 05:22 WBC 12.55 H (4.8-10.8) K/uL RBC 2.90 L (4.2-5.4) M/uL Hgb 9.2 L (12.0-16.0) g/dL Hct 27.4 L (37-47) % Immature Gran # (Auto) 0.07 H (0.00-0.02) K/uL Neut # (Auto) 11.43 H (1.4-6.5) K/uL Lymph # (Auto) 0.47 L (1.2-3.4) K/uL APTT 63.9 H* (21.0-31.0) Seconds Sodium 128 L (136-145) mmol/L Chloride 88 L (98-107) mmol/L Carbon Dioxide 33 H (21-32) mmol/L BUN 25 H D (7-18) mg/dl BUN/Creatinine Ratio 28.2 H (10-20) Glucose 164 H (70-99) mg/dl POC Glucose (70-99) Calcium 8.2 L (8.5-10.1) mg/dl 09/09/18 Range/Units 07:19 WBC (4.8-10.8) K/uL RBC (4.2-5.4) M/uL Hgb (12.0-16.0) g/dL Hct (37-47) % Immature Gran # (Auto) (0.00-0.02) K/uL Neut # (Auto) (1.4-6.5) K/uL Lymph # (Auto) (1.2-3.4) K/uL APTT (21.0-31.0) Seconds Sodium (136-145) mmol/L Chloride (98-107) mmol/L Carbon Dioxide (21-32) mmol/L BUN (7-18) mg/dl BUN/Creatinine Ratio (10-20) Glucose (70-99) mg/dl POC Glucose 177 H (70-99) Calcium (8.5-10.1) mg/dl Medications Administered Current Inpatient Medications Acetaminophen (Tylenol) 650 mg PO Q4H PRN PRN Reason: Pain or Fever Stop: 09/30/18 03:45 Last Admin: 09/06/18 02:07 Dose: 650 mg Documented by: Al Hydrox/Mg Hydrox/Simethicone (Maalox) 30 ml PO Q6H PRN PRN Reason: Dyspepsia Stop: 10/07/18 09:11 Last Admin: 09/07/18 09:39 Dose: 30 ml Documented by: Albuterol (Ventolin Hfa) 2 puffs INH Q6H PRN PRN Reason: Shortness Of Breath Stop: 10/01/18 17:29 Amlodipine Besylate (Norvasc) 10 mg PO DAILY [facility] Stop: 10/05/18 08:59 Last Admin: 09/09/18 09:14 Dose: 10 mg Documented by: Artificial Tears (Artificial Tears) 1 drops OP HS [facility] Stop: 09/30/18 20:59 Last Admin: 09/08/18 20:53 Dose: 1 drops Documented by: Dextrose (Dextrose 50%) 25 - 50 ml IV UD PRN; Protocol PRN Reason: Hypoglycemia Protocol Stop: 09/30/18 03:45 Docusate Sodium (Colace) 100 mg PO BID PRN PRN Reason: CONSTIPATION Stop: 09/30/18 06:29 Erythromycin (Erythromycin) 1 appln OP QID [facility] Stop: 09/10/18 08:59 Last Admin: 09/09/18 09:29 Dose: Not Given Documented by: Furosemide (Lasix) 20 mg PO QAM [facility] Stop: 10/09/18 08:59 Last Admin: 09/09/18 09:15 Dose: 20 mg Documented by: Glucagon (Glucagen) 1 mg SQ UD PRN; Protocol PRN Reason: Hypoglycemia Protocol Stop: 09/30/18 03:45 Glucose (Glucose 40%) 15 - 30 gm PO UD PRN; Protocol PRN Reason: Hypoglycemia Protocol Stop: 09/30/18 03:45 Glucose (Dex4 Glucose) 4 - 8 tabs PO UD PRN; Protocol PRN Reason: Hypoglycemia Protocol Stop: 09/30/18 03:45 Hydromorphone HCl (Dilaudid) 0.25 mg IV Q3H PRN PRN Reason: Pain Stop: 09/14/18 03:45 Promethazine HCl 12.5 mg/ (Sodium Chloride) 50.5 mls @ 202 mls/hr IV Q6H PRN PRN Reason: Nausea And Vomiting Stop: 09/30/18 00:49 Last Infusion: 09/07/18 12:07 Dose: Infused Documented by: Heparin Sodium/Dextrose (Heparin Sodium/Dextrose) 25,000 units in 500 mls @ 20 mls/hr IV .Q24H [facility]; Protocol Stop: 10/05/18 15:29 Last Titration: 09/09/18 07:23 Dose: 1,000 units/hr, 20 mls/hr Documented by: Cefepime HCl 2,000 mg/ Syringe 20 mls @ 5 mls/min IV Q8H [facility]; Protocol Stop: 09/16/18 10:59 Last Admin: 09/09/18 09:13 Dose: 5 mls/min Documented by: Methylprednisolone 60 mg/ (Syringe) 0.96 mls @ 1.5 mls/min IV Q8H [facility] Stop: 09/09/18 12:01 Last Admin: 09/09/18 03:44 Dose: 1.5 mls/min Documented by: Insulin Aspart (Novolog Flexpen) 0 units SC ACHS [facility]; Protocol Stop: 10/02/18 20:59 Last Admin: 09/09/18 09:27 Dose: 8 units Documented by: Ipratropium [place] (Atrovent 0.02% 0.5mg/2.5ml) 0.5 mg NEB Q4H PRN PRN Reason: sob Stop: 10/01/18 17:29 Ipratropium [place] (Atrovent 0.02% 0.5mg/2.5ml) 0.5 mg INH Q6R [facility] Stop: 10/03/18 13:59 Last Admin: 09/09/18 07:19 Dose: 0.5 mg Documented by: Levalbuterol HCl (Xopenex 0.63 Mg/3 Ml Neb) 0.63 mg NEB Q6R [facility] Stop: 10/03/18 13:59 Last Admin: 09/09/18 07:19 Dose: 0.63 mg Documented by: Levothyroxine Sodium (Synthroid) 50 mcg PO DAILYBB [facility] Stop: 09/30/18 06:29 Last Admin: 09/09/18 06:22 Dose: 50 mcg Documented by: Lisinopril (Zestril) 5 mg PO QAM [facility] Stop: 10/06/18 12:14 Last Admin: 09/09/18 09:15 Dose: 5 mg Documented by: Miscellaneous (Order Awaiting Action) 1 ea N/A QS [facility] Stop: 09/30/18 07:59 Last Admin: 09/08/18 23:45 Dose: Not Given Documented by: Miscellaneous (Carbohydrates For Hypoglycemia) 15 - 30 gm PO UD PRN PRN Reason: Hypoglycemia Treatment Stop: 09/30/18 03:45 Miscellaneous Information (Consult Glycemic Management Pharmacy) 1 ea N/A UD PRN PRN Reason: Consult Stop: 10/02/18 07:11 Miscellaneous Information (Cefepime Consult Active) 1 ea N/A UD PRN PRN Reason: Consult Stop: 10/02/18 07:11 Multivitamins/Minerals (Multivitamin W/ Minerals Tab) 1 tab PO DAILY [facility]; Protocol Stop: 09/30/18 08:59 Last Admin: 09/09/18 09:13 Dose: 1 tab Documented by: Oxycodone/Acetaminophen (Percocet 5mg/325mg) 1 - 2 tab PO Q6H PRN PRN Reason: Moderate-Severe Pain Stop: 09/15/18 14:04 Pantoprazole Sodium (Protonix) 40 mg PO DAILY [facility]; Protocol Stop: 09/30/18 08:59 Last Admin: 09/09/18 09:13 Dose: 40 mg Documented by: [facility]Pred[facility]) [facility] [place]: 10/03/18 08:59 Last Admin: 09/03/18 08:48 Dose: 10 mg Documented by: Prednisone (Prednisone) 40 mg PO DAILY [facility] Stop: 10/03/18 17:14 Last Admin: 09/07/18 11:57 Dose: Not Given Documented by: Rosuvastatin Calcium (Crestor) 10 mg PO DAILY [facility] Stop: 09/30/18 08:59 Last Admin: 09/09/18 09:14 Dose: 10 mg Documented by: Fluticasone/Salmeterol (Advair Diskus 100/50) 1 puffs INH BID [facility] Stop: 10/03/18 13:19 Last Admin: 09/09/18 09:14 Dose: 1 puffs Documented by: Tramadol HCl (Ultram) 25 mg PO Q4H PRN PRN Reason: Pain Stop: 09/30/18 03:45
--- NOTE | 2018-09-09 11:36 | Cardiology Progress Note ---
Date of Service September 09, 2018 Assessment & Plan (1) Pulmonary embolus: (2) Bacteremia due to methicillin susceptible Staphylococcus aureus (MSSA): (3) Mobitz type 2 second degree atrioventricular block: (4) Infection of pacemaker pocket: (5) Interstitial lung disease: 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 Pacemaker extracted 09/01/2018 without complication. Remains sinus rhythm/tachycardia with 2-1 AV block on telemetry. Respiratory status improved with IV steroids and diuretic therapy. Reduce Lasix to 20 mg every other day to maintain even fluid balance while patient receiving IV therapies. Lisinopril and amlodipine as previously ordered. Anticoagulation as per pulmonary medicine. Antibiotics per infectious disease specialist. Patient scheduled for PICC line insertion. Subjective Patient seen and examined at the bedside. Respiratory status improved. Denies chest pain or palpitations. Remains in 2-1 AV block with underlying sinus tachycardia on telemetry. No lightheadedness, dizziness, syncope, or near syncope. Review of Systems Review of Systems: All systems reviewed & are unremarkable except as noted in HPI & below Physical Exam Physical Exam: General: NAD, AAO x3, well nourished. HEENT: Normocephalic. Atraumatic. Conjunctiva pink, no scleral icterus. Neck: No carotid bruits, the carotid upstrokes are brisk. No JVD. No HJR. Chest: Left-sided pacemaker site dressing clean, dry, intact. No erythema or drainage. Heart: Regular normal S-1 and S-2 no S-3 or S-4 gallop. No murmurs or rub appreciated. PMI is not displaced. No RV heave. Lungs: + Dry crackles bilateral. No rhonchi. Mild end expiratory wheezing. Abdomen: Normal bowel sounds. Soft. Nontender. No masses or organomegaly. No abdominal bruits. Extremities: No clubbing, cyanosis, or edema. Pulses: radial=2/4, Dorsalis pedis =2/4, posterior tibial=2/4. Neuro: Cranial nerves grossly intact. No focal motor deficit. Results & Data Vital Signs (Past 12 Hours) Vital Signs Temp Pulse Resp BP BP Pulse Ox 09/09/18 11:03 36.9 C 59 L 18 147/55 H 96 09/09/18 07:34 36.4 C L 57 L 19 179/75 H 98 09/09/18 07:22 68 18 96 09/09/18 02:44 36.5 C 58 L 21 172/76 H 95 09/09/18 01:49 59 L 16 96 Laboratory Results Laboratory Results - last 24 hr 09/08/18 09/08/18 09/08/18 11:14 11:15 13:13 WBC RBC Hgb Hct MCV MCH MCHC RDW Std Deviation RDW Coeff of Gabriel Plt Count MPV Immature Gran % (Auto) Neut % (Auto) Lymph % (Auto) Ford % (Auto) Eos % (Auto) Baso % (Auto) Immature Gran # (Auto) Neut # (Auto) Lymph # (Auto) Ford # (Auto) Eos # (Auto) Baso # (Auto) APTT 57.1 H* PTT Ratio 2.1 Sodium Potassium Chloride Carbon Dioxide Anion Gap BUN Creatinine Est Cr Clr Drug Dosing Est GFR ( Amer) Est GFR (Non-Af Amer) BUN/Creatinine Ratio Glucose POC Glucose 353 H* 341 H* Calcium 09/08/18 09/08/18 09/08/18 16:25 20:21 23:39 WBC RBC Hgb Hct MCV MCH MCHC RDW Std Deviation RDW Coeff of Gabriel Plt Count MPV Immature Gran % (Auto) Neut % (Auto) Lymph % (Auto) Ford % (Auto) Eos % (Auto) Baso % (Auto) Immature Gran # (Auto) Neut # (Auto) Lymph # (Auto) Ford # (Auto) Eos # (Auto) Baso # (Auto) APTT PTT Ratio Sodium Potassium Chloride Carbon Dioxide Anion Gap BUN Creatinine Est Cr Clr Drug Dosing Est GFR ( Amer) Est GFR (Non-Af Amer) BUN/Creatinine Ratio Glucose POC Glucose 96 286 H 247 H Calcium 09/09/18 09/09/18 09/09/18 03:32 05:22 05:22 WBC 12.55 H RBC 2.90 L Hgb 9.2 L Hct 27.4 L MCV 94.5 MCH 31.7 MCHC 33.6 RDW Std Deviation 44.9 RDW Coeff of Gabriel 13.0 Plt Count 269 MPV 9.8 Immature Gran % (Auto) 0.6 Neut % (Auto) 91.1 Lymph % (Auto) 3.7 Ford % (Auto) 4.5 Eos % (Auto) 0.0 Baso % (Auto) 0.1 Immature Gran # (Auto) 0.07 H Neut # (Auto) 11.43 H Lymph # (Auto) 0.47 L Ford # (Auto) 0.57 Eos # (Auto) 0.00 Baso # (Auto) 0.01 APTT PTT Ratio Sodium 128 L Potassium 4.1 Chloride 88 L Carbon Dioxide 33 H Anion Gap 7.0 BUN 25 H D Creatinine 0.89 Est Cr Clr Drug Dosing 51.3 Est GFR ( Amer) 70.4 Est GFR (Non-Af Amer) 60.8 BUN/Creatinine Ratio 28.2 H Glucose 164 H POC Glucose 174 H Calcium 8.2 L 09/09/18 09/09/18 05:22 07:19 WBC RBC Hgb Hct MCV MCH MCHC RDW Std Deviation RDW Coeff of Gabriel Plt Count MPV Immature Gran % (Auto) Neut % (Auto) Lymph % (Auto) Ford % (Auto) Eos % (Auto) Baso % (Auto) Immature Gran # (Auto) Neut # (Auto) Lymph # (Auto) Ford # (Auto) Eos # (Auto) Baso # (Auto) APTT 63.9 H* PTT Ratio 2.5 Sodium Potassium Chloride Carbon Dioxide Anion Gap BUN Creatinine Est Cr Clr Drug Dosing Est GFR ( Amer) Est GFR (Non-Af Amer) BUN/Creatinine Ratio Glucose POC Glucose 177 H Calcium (1) Pulmonary embolus Acute cor pulmonale presence: without acute cor pulmonale Chronicity: acute Pulmonary embolism type: unspecified Qualified Code(s): I26.99 - Other pulmonary embolism without acute cor pulmonale
[2018-09-09] MEDS ORDERED: INSULIN HUMAN REGULAR PER UNIT 7 UNITS in SYRINGE 6.93 ML IV ONE (13:00)
--- NOTE | 2018-09-09 17:30 | Hospitalist Progress Note ---
Date of Service September 09, 2018 Assessment & Plan (1) Sepsis: Secondary to pacemaker site infection, bacteremia 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 Immunocompromised patient with Sjogren's syndrome on chronic steroid Rx S/Post removal of pacemaker on 09/01/2018 Wound culture: Positive for Pseudomonas and MSSA Blood cultures: Positive for MSSA Continue cefepime IV Appreciate ID input and recommendation -Will DC his IV cefepime and replaced with intravenous daptomycin PICC line has been placed and will continue daptomycin for 2 weeks Discussed with cardiology Acute on Chronic Hypoxic Respiratory Failure Interstitial lung disease History of Sjogren's syndrome with lung involvement On chronic prednisone [address] chest ordered: Positive for right lower lobe pulmonary emboli Appreciate pulmonary input and recommendation IV Lasix as needed and BiPAP for shortness of breath Has been on intravenous Solu-Medrol and nebulized bronchodilator We will change his steroid orally 50 mg daily and taper to continue 10 mg until she sees her junior media buyer as an outpatient Pulmonary embolism Has been on intravenous heparin Will likely change to Eliquis on discharge-we will discuss with junior media buyer Hypertension Amlodipine increased to 10 mg p.o. daily for better BP control Lisinopril 5 mg p.o. daily added Monitor blood pressure DM2 ISS Blood sugar has been noted to be high secondary to nasal steroid SSI-parameters have been changed DVT prophylaxis. On heparin drip Full code Disposition Pending DVT prophylaxis. Lovenox subcu Full code Discussed with the patient Likely discharge tomorrow Subjective 09/08 The patient was seen and examined in telemetry unit Complaints of weakness and shortness of breath on exertion Denies any symptoms at rest No fever and/or chills 09/09 The patient was seen and examined in telemetry unit He remains stable Denies any significant chest pain no palpitation Out of bed in a chair has been getting physical therapy Review of Systems Review of Systems: All systems reviewed and are unremarkable except as noted below Constitutional: + malaise; no fever and no chills Respiratory: + dyspnea on exertion Physical Exam Physical Exam: No apparent distress at rest Constitutional: + ill appearing (Without acute distress, certainly appears improved compared to 08/31/2018), + cachectic and comfortable; no acute distress Eyes: PERRL, conjunctivae normal, anicteric sclerae ENMT: external ear and nose normal, oropharynx normal Mallampati Class: II Neck: trachea midline, no thyromegaly normal visual inspection; neck nontender Respiratory: normal respiratory effort; no respiratory distress and does not use accessory muscles Auscultation: + diminished lung sounds and + crackles (Bilaterally at the bases); no rales, no rhonchi and no wheezes Cardiovascular: Rate/Rhythm: regular rate and regular rhythm Heart Sounds: normal S1 and normal S2; no gallop, no murmur and no cardiac rub Vessels: normal peripheral pulses; no JVD Extremities: no edema Chest (Breasts): Chest: + pacemaker (Left infraclavicular pacemaker pocket with ongoing mild erythema, and drainage from incision site, unchanged compared to yesterday. She states that it was tender to palpation yesterday and this has improved.) Gastrointestinal (Abdomen): Inspection/Auscultation: abdomen normal to inspec tion and normal bowel sounds Percussion/Palpation: abdomen soft Musculoskeletal: no cyanosis or clubbing, extremities motor strength 5/5 Spine: thoracic spine normal to inspection and lumbar spine normal to inspection; no pain with cervical ROM and no cervical spinal tenderness Skin: no rashes, warm and dry normal turgor and + wound (Pacemaker pocket with erythema drainage); no rashes Neurologic: moves all extremities and awake; no focal motor deficits Motor/Sensory: no sensory deficit Psychiatric: A+Ox3, euthymic affect Orientation: alert, oriented x 3 and cooperative Lymphatic: no cervical or axillary lymphadenopathy no inguinal lymphadenopathy Results & Data Vital Signs (Past 12 Hours) Vital Signs Temp Pulse Pulse Resp BP BP Pulse Ox 09/09/18 15:30 36.8 C 61 20 168/65 H 96 09/09/18 14:09 68 18 97 09/09/18 11:31 92 09/09/18 11:03 36.9 C 59 L 18 147/55 H 96 09/09/18 08:00 57 L 09/09/18 07:34 36.4 C L 57 L 19 179/75 H 98 09/09/18 07:22 68 18 96 Laboratory Results Short CBC 09/09/18 Range/Units 05:22 WBC 12.55 H (4.8-10.8) K/uL Hgb 9.2 L (12.0-16.0) g/dL Hct 27.4 L (37-47) % Plt Count 269 (130-400) K/uL BMP 09/09/18 05:22 Sodium 128 L Potassium 4.1 Chloride 88 L Carbon Dioxide 33 H BUN 25 H D Creatinine 0.89 Glucose 164 H Calcium 8.2 L Medications Administered Current Inpatient Medications Acetaminophen (Tylenol) 650 mg PO Q4H PRN PRN Reason: Pain or Fever Stop: 09/30/18 03:45 Last Admin: 09/06/18 02:07 Dose: 650 mg Documented by: Al Hydrox/Mg Hydrox/Simethicone (Maalox) 30 ml PO Q6H PRN PRN Reason: Dyspepsia Stop: 10/07/18 09:11 Last Admin: 09/07/18 09:39 Dose: 30 ml Documented by: Albuterol (Ventolin Hfa) 2 puffs INH Q6H PRN PRN Reason: Shortness Of Breath Stop: 10/01/18 17:29 Amlodipine Besylate (Norvasc) 10 mg PO DAILY [facility] Stop: 10/05/18 08:59 Last Admin: 09/09/18 09:14 Dose: 10 mg Documented by: Artificial Tears (Artificial Tears) 1 drops OP HS NYDIA Stop: 09/30/18 20:59 Last Admin: 09/08/18 20:53 Dose: 1 drops Documented by: Clotrimazole (Mycelex) 10 mg BUCCAL [id number] [facility] Stop: 09/19/18 18:59 Dextrose (Dextrose 50%) 25 - 50 ml IV UD PRN; Protocol PRN Reason: Hypoglycemia Protocol Stop: 09/30/18 03:45 Docusate Sodium (Colace) 100 mg PO BID PRN PRN Reason: CONSTIPATION Stop: 09/30/18 06:29 Erythromycin (Erythromycin) 1 appln OP QID [facility] Stop: 09/10/18 08:59 Last Admin: 09/09/18 17:11 Dose: 1 appln Documented by: Furosemide (Lasix) 20 mg PO QAM [facility] Stop: 10/09/18 08:59 Last Admin: 09/09/18 09:15 Dose: 20 mg Documented by: Glucagon (Glucagen) 1 mg SQ UD PRN; Protocol PRN Reason: Hypoglycemia Protocol Stop: 09/30/18 03:45 Glucose (Glucose 40%) 15 - 30 gm PO UD PRN; Protocol PRN Reason: Hypoglycemia Protocol Stop: 09/30/18 03:45 Glucose (Dex4 Glucose) 4 - 8 tabs PO UD PRN; Protocol PRN Reason: Hypoglycemia Protocol Stop: 09/30/18 03:45 Hydromorphone HCl (Dilaudid) 0.25 mg IV Q3H PRN PRN Reason: Pain Stop: 09/14/18 03:45 Promethazine HCl 12.5 mg/ (Sodium Chloride) 50.5 mls @ 202 mls/hr IV Q6H PRN PRN Reason: Nausea And Vomiting Stop: 09/30/18 00:49 Last Infusion: 09/07/18 12:07 Dose: Infused Documented by: Heparin Sodium/Dextrose (Heparin Sodium/Dextrose) 25,000 units in 500 mls @ 20 mls/hr IV .Q24H NYDIA; Protocol Stop: 10/05/18 15:29 Last Titration: 09/09/18 15:13 Dose: 1,000 units/hr, 20 mls/hr Documented by: Cefepime HCl 2,000 mg/ Syringe 20 mls @ 5 mls/min IV Q8H NYDIA; Protocol Stop: 09/16/18 10:59 Last Admin: 09/09/18 16:18 Dose: 5 mls/min Documented by: Daptomycin 400 mg/ Syringe 8 mls @ 4 mls/min IV DAILY@1800 NYDIA; Protocol Stop: 09/23/18 17:59 Insulin Aspart (Novolog Flexpen) 0 units SC ACHS NYDIA Stop: 10/09/18 16:29 Last Admin: 09/09/18 17:12 Dose: 7 units Documented by: Insulin Aspart (Novolog Flexpen) 0 units SC TODAY@0200 ONE Stop: 09/10/18 02:01 Ipratropium [place] (Atrovent 0.02% 0.5mg/2.5ml) 0.5 mg NEB Q4H PRN PRN Reason: sob Stop: 10/01/18 17:29 Ipratropium [place] (Atrovent 0.02% 0.5mg/2.5ml) 0.5 mg INH Q6R NYDIA Stop: 10/03/18 13:59 Last Admin: 09/09/18 14:09 Dose: 0.5 mg Documented by: Levalbuterol HCl (Xopenex 0.63 Mg/3 Ml Neb) 0.63 mg NEB Q6R [facility] Stop: 10/03/18 13:59 Last Admin: 09/09/18 14:09 Dose: 0.63 mg Documented by: Levothyroxine Sodium (Synthroid) 50 mcg PO DAILYBB [facility] Stop: 09/30/18 06:29 Last Admin: 09/09/18 06:22 Dose: 50 mcg Documented by: Lisinopril (Zestril) 5 mg PO QAM [facility] Stop: 10/06/18 12:14 Last Admin: 09/09/18 09:15 Dose: 5 mg Documented by: Miscellaneous (Carbohydrates For Hypoglycemia) 15 - 30 gm PO UD PRN PRN Reason: Hypoglycemia Treatment Stop: 09/30/18 03:45 Miscellaneous Information (Consult Glycemic Management Pharmacy) 1 ea N/A UD PRN PRN Reason: Consult Stop: 10/02/18 07:11 Miscellaneous Information (Cefepime Consult Active) 1 ea N/A UD PRN PRN Reason: Consult Stop: 10/02/18 07:11 Multivitamins/Minerals (Multivitamin W/ Minerals Tab) 1 tab PO DAILY [facility]; Freya col Stop: 09/30/18 08:59 Last Admin: 09/09/18 09:13 Dose: 1 tab Documented by: Dulera 100mcg/5mcg~ Non-Formulary Patient's Own Med 2 ea PO BID [facility] Stop: 10/09/18 20:59 Oxycodone/Acetaminophen (Percocet 5mg/325mg) 1 - 2 tab PO Q6H PRN PRN Reason: Moderate-Severe Pain Stop: 09/15/18 14:04 Pantoprazole Sodium (Protonix) 40 mg PO DAILY [facility]; Protocol Stop: 09/30/18 08:59 Last Admin: 09/09/18 09:13 Dose: 40 mg Documented by: Prednisone (Prednisone) 10 mg PO QAM [facility] Stop: 10/03/18 08:59 Last Admin: 09/03/18 08:48 Dose: 10 mg Documented by: Prednisone (Prednisone) 40 mg PO DAILY [facility] Stop: 10/03/18 17:14 Last Admin: 09/07/18 11:57 Dose: Not Given Documented by: Rosuvastatin Calcium (Crestor) 10 mg PO DAILY [facility] Stop: 09/30/18 08:59 Last Admin: 09/09/18 09:14 Dose: 10 mg Documented by: Fluticasone/Salmeterol (Advair Diskus 100/50) 1 puffs INH BID NYDIA Stop: 10/03/18 13:19 Last Admin: 09/09/18 09:14 Dose: 1 puffs Documented by: Tramadol HCl (Ultram) 25 mg PO Q4H PRN PRN Reason: Pain Stop: 09/30/18 03:45
[2018-09-09] MEDS: DAPTOmycin 400 MG in SYRINGE 0 ML IV SCH (18:30)
[2018-09-09] MEDS: CLOTRIMAZOLE 10 MG TROCHE BUCCAL SCH ×2 (19:29→23:47)
[2018-09-09] MEDS: DULERA PO SCH (21:14)
[2018-09-09] MEDS: ARTIFICIAL TEARS OP SCH (21:35)
[2018-09-09] MEDS: ACETAMINOPHEN 325 MG TAB PO PRN (23:45)
[2018-09-10] MEDS ORDERED: INSULIN ASPART 100 UNITS/ML 3 ML PEN SC ONE (02:00)
[2018-09-10] MEDS: LEVALBUTEROL HCL 0.63 MG/3 ML NEB NEB SCH ×4 (02:37→19:19)
[2018-09-10] MEDS: IPRATROPIUM BROMIDE NEB SOLN 0.02% 2.5 ML VIAL INH SCH ×4 (02:37→19:19)
[2018-09-10] MEDS: LEVOTHYROXINE SODIUM 50 MCG TABLET PO SCH (05:51)
[2018-09-10 07:04] LABS: Basophils # (auto) 0.01 K/uL (0-0.2); Basophils % (auto) 0.1 %; Hematocrit (blood only) 30.6 % (37-47); Hemoglobin 10.4 g/dL (12.0-16.0); Immature Granulocytes # (auto) 0.12 K/uL (0.00-0.02); Immature Granulocytes % (auto) 0.6 %; Lymphocytes % (auto) 6.1 %; Mean Corpuscular Volume 91.6 fL (80-100); Mean Platelet Volume 10.3 fL (7.4-10.4); Monocytes % (auto) 4.6 %; Neutrophils # (auto) 17.51 K/uL (1.4-6.5); Neutrophils % (auto) 88.6 %; Platelet Count 303 K/uL (130-400); RDW Coefficient of Variation 13.1 % (11.5-14.5); RDW Standard Deviation 43.5 fL (36.4-46.3); Red Blood Count 3.34 M/uL (4.2-5.4); White Blood Count 19.74 K/uL (4.8-10.8)
[2018-09-10 07:24] LABS: Partial Thromboplastin Ratio 2.2
[2018-09-10 07:26] LABS: Partial Thromboplastin Time 59.8 Seconds (21.0-31.0)
[2018-09-10 07:42] LABS: BUN Creatinine Ratio 36.1 (10-20); Calcium 8.6 mg/dl (8.5-10.1); Creatinine Clr Calc Pharmacy 63.5 ml/min; Est GFR (African American) 89.5; Est GFR (Non-African American) 77.2; Potassium 3.5 mmol/L (3.5-5.1)
[2018-09-10] MEDS: CEROVITE ADV FORMULA TAB PO SCH (08:38)
[2018-09-10] MEDS: PANTOprazole 40 MG TAB PO SCH (08:38)
[2018-09-10] MEDS: FUROSEMIDE 20 MG TAB PO SCH (08:38)
[2018-09-10] MEDS: LISINOPRIL 5 MG TAB PO SCH (08:38)
[2018-09-10] MEDS: AMLODIPINE BESYLATE 5 MG TAB PO SCH (08:39)
[2018-09-10] MEDS: ROSUVASTATIN CALCIUM 10 MG TAB PO SCH (08:39)
[2018-09-10] MEDS: CLOTRIMAZOLE 10 MG TROCHE BUCCAL SCH ×5 (08:39→21:53)
[2018-09-10] MEDS: DULERA PO SCH ×2 (08:39→21:53)
[2018-09-10] MEDS: FLUTICASONE/SALMETEROL 100/50 (ADVAIR) 14 PUFF/1 INHALER INH SCH ×2 (08:40→21:50)
[2018-09-10] MEDS: INSULIN ASPART 100 UNITS/ML 3 ML PEN SC SCH ×4 (08:41→21:58)
[2018-09-10] MEDS: CEFEPIME 2,000 MG in SYRINGE 7.5 ML IV SCH (09:07)
[2018-09-10] MEDS ORDERED: INSULIN HUMAN NPH SC ONE ×2 (10:00→11:45)
[2018-09-10] MEDS: SODIUM CHLORIDE 1 GM TABLET PO SCH ×3 (11:35→21:54)
[2018-09-10] MEDS: predniSONE 20 MG TAB PO SCH (11:38)
--- NOTE | 2018-09-10 12:50 | Cardiology Progress Note ---
Date of Service September 10, 2018 Assessment & Plan (1) Infection of pacemaker pocket: (2) Pulmonary embolus: (3) Bacteremia due to methicillin susceptible Staphylococcus aureus (MSSA): (4) Mobitz type 2 second degree atrioventricular block: (5) Interstitial lung disease: 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 Pacemaker extracted 09/01/2018 without complication. Remains sinus rhythm/tachycardia with 2-1 AV block on telemetry. Respiratory status improved with IV steroids and diuretic therapy. Reduce Lasix to 20 mg every other day to maintain even fluid balance while patient receiving IV therapies. Lisinopril and amlodipine as previously ordered. Anticoagulation as per pulmonary medicine. Consider transition to Xarelto. Antibiotics per infectious disease specialist. Patient scheduled for PICC line insertion. Subjective Patient seen and examined the bedside. Reports intermittent dyspnea requiring BiPAP. She is anxious about possible discharge. Denies orthopnea or PND. No chest discomfort. Remains sinus tachycardia with 2-1 AV block on telemetry. Review of Systems Review of Systems: All systems reviewed & are unremarkable except as noted in HPI & below Physical Exam Physical Exam: General: NAD, AAO x3, well nourished. HEENT: Normocephalic. Atraumatic. Conjunctiva pink, no scleral icterus. Neck: No carotid bruits, the carotid upstrokes are brisk. No JVD. No HJR. Chest: Left-sided pacemaker site dressing clean, dry, intact. No erythema or drainage. Heart: Regular normal S-1 and S-2 no S-3 or S-4 gallop. No murmurs or rub appreciated. PMI is not displaced. No RV heave. Lungs: + Dry crackles bilateral. No rhonchi. Mild end expiratory wheezing. Abdomen: Normal bowel sounds. Soft. Nontender. No masses or organomegaly. No abdominal bruits. Extremities: No clubbing, cyanosis, or edema. Pulses: radial=2/4, Dorsalis pedis =2/4, posterior tibial=2/4. Neuro: Cranial nerves grossly intact. No focal motor deficit. Results & Data Vital Signs (Past 12 Hours) Vital Signs Temp Pulse Pulse Pulse Resp BP Pulse Ox 09/10/18 10:54 36.7 C 59 L 19 153/74 H 94 09/10/18 07:13 57 L 57 L 28 H 95 07/26/19 07:01 36.5 C 75 19 186/73 H 96 09/10/18 04:28 36.7 C 58 L 21 180/72 H 98 09/10/18 02:37 53 L 16 99 (1) Pulmonary embolus Acute cor pulmonale presence: without acute cor pulmonale Chronicity: acute Pulmonary embolism type: unspecified Qualified Code(s): I26.99 - Other pulmonary embolism without acute cor pulmonale
--- NOTE | 2018-09-10 13:03 | Hospitalist Progress Note ---
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 Immunocompromised patient with Sjogren's syndrome on chronic steroid Rx S/Post removal of pacemaker on 09/01/2018 Wound culture: Positive for Pseudomonas and MSSA Blood cultures: Positive for MSSA Continue cefepime IV Appreciate ID input and recommendation -Will DC his IV cefepime and replaced with intravenous daptomycin PICC line has been placed and will continue daptomycin for 2 weeks Hyponatremia Sodium level went down to 125 Will advise less fluid intake Sodium tablets, 1 g twice a day Repeat PRP tomorrow Acute on Chronic Hypoxic Respiratory Failure Interstitial lung disease History of Sjogren's syndrome with lung involvement On chronic prednisone [address] chest ordered: Positive for right lower lobe pulmonary emboli Appreciate pulmonary input and recommendation IV Lasix as needed and BiPAP for shortness of breath Has been on intravenous Solu-Medrol and nebulized bronchodilator We will change his steroid orally 50 mg daily and taper to continue 10 mg until she sees her forest ranger as an outpatient Shortness of breath remains stable Pulmonary embolism Has been on intravenous heparin Will likely change to Eliquis on discharge-we will discuss with forest ranger Will be discharged tomorrow on Eliquis/Xarelto Hypertension Amlodipine increased to 10 mg p.o. daily for better BP control Lisinopril 5 mg p.o. daily added Monitor blood pressure DM2 ISS Blood sugar has been noted to be high secondary to nasal steroid SSI-parameters have been changed DVT prophylaxis. On heparin drip Full code Disposition Pending DVT prophylaxis. Lovenox subcu Full code Discussed with the patient Awaiting placement Subjective 09/08 The patient was seen and examined in telemetry unit Complaints of weakness and shortness of breath on exertion Denies any symptoms at rest No fever and/or chills 09/09 The patient was seen and examined in telemetry unit He remains stable Denies any significant chest pain no palpitation Out of bed in a chair has been getting physical therapy 09/10 The patient was seen and examined in the telemetry unit She denies any significant symptoms Remains to be mild shortness of breath at rest She has been waiting to go [place] [facility] Review of Systems Review of Systems: All systems reviewed and are unremarkable except as noted below Constitutional: + malaise; no fever and no chills Respiratory: + dyspnea on exertion Physical Exam Physical Exam: Lying in bed comfortably with minimal shortness of breath Constitutional: + ill appearing (Without acute distress, certainly appears improved compared to 08/31/2018), + thin and comfortable; no acute distress Eyes: PERRL, conjunctivae normal, anicteric sclerae ENMT: external ear and nose normal, oropharynx normal Mallampati Class: II Neck: trachea midline, no thyromegaly normal visual inspection; neck nontender Respiratory: normal respiratory effort; no respiratory distress and does not use accessory muscles Auscultation: + diminished lung sounds and + crackles (Bilaterally at the bases); no rales, no rhonchi and no wheezes Cardiovascular: Rate/Rhythm: regular rate and regular rhythm Heart Sounds: normal S1 and normal S2; no gallop, no murmur and no cardiac rub Vessels: normal peripheral pulses; no JVD Extremities: no edema Chest (Breasts): Chest: + pacemaker (Left infraclavicular pacemaker pocket with ongoing mild erythema, and drainage from incision site, unchanged compared to yesterday. She states that it was tender to palpation yesterday and this has improved.) Gastrointestinal (Abdomen): Inspection/Auscultation: abdomen normal to inspection and normal bowel sounds Percussion/Palpation: abdomen soft Musculoskeletal: no cyanosis or clubbing, extremities motor strength 5/5 Spine: thoracic spine normal to inspection and lumbar spine normal to inspection; no pain with cervical ROM and no cervical spinal tenderness No acute arthritis in any joints Skin: no rashes, warm and dry normal turgor and + wound (Pacemaker pocket with erythema drainage); no rashes Neurologic: moves all extremities and awake; no focal motor deficits Motor/Sensory: no sensory deficit Psychiatric: A+Ox3, euthymic affect Orientation: alert, oriented x 3 and cooperative Lymphatic: no cervical or axillary lymphadenopathy no inguinal lymphadenopathy Results & Data Vital Signs (Past 12 Hours) Vital Signs Temp Pulse Pulse Pulse Resp BP Pulse Ox 09/10/18 10:54 36.7 C 59 L 19 153/74 H 94 09/10/18 08:00 60 09/10/18 07:13 57 L 57 L 28 H 95 09/10/18 07:01 36.5 C 75 19 186/73 H 96 09/10/18 04:28 36.7 C 58 L 21 180/72 H 98 09/10/18 02:37 53 L 16 99 Laboratory Results Short CBC 09/10/18 Range/Units 06:39 WBC 19.74 H (4.8-10.8) K/uL Hgb 10.4 L (12.0-16.0) g/dL Hct 30.6 L (37-47) % Plt Count 303 (130-400) K/uL BMP 09/10/18 06:39 Sodium 125 L Potassium 3.5 Chloride 87 L Carbon Dioxide 28 BUN 26 H Creatinine 0.73 Glucose 137 H Calcium 8.6 Cardiac Enzymes 09/10/18 Range/Units 06:39 Total Creatine Kinase 52 (26-192) U/L Medications Administered Current Inpatient Medications Acetaminophen (Tylenol) 650 mg PO Q4H PRN PRN Reason: Pain or Fever Stop: 09/30/18 03:45 Last Admin: 09/09/18 23:45 Dose: 650 mg Documented by: Al Hydrox/Mg Hydrox/Simethicone (Maalox) 30 ml PO Q6H PRN PRN Reason: Dyspepsia Stop: 10/07/18 09:11 Last Admin: 09/07/18 09:39 Dose: 30 ml Documented by: Albuterol (Ventolin Hfa) 2 puffs INH Q6H PRN PRN Reason: Shortness Of Breath Stop: 10/01/18 17:29 Amlodipine Besylate (Norvasc) 10 mg PO DAILY [facility] Stop: 10/05/18 08:59 Last Admin: 09/10/18 08:39 Dose: 10 mg Documented by: Artificial Tears (Artificial Tears) 1 drops OP HS [facility] Stop: 09/30/18 20:59 Last Admin: 09/09/18 21:35 Dose: 1 drops Documented by: Clotrimazole (Mycelex) 10 mg BUCCAL 5XDQ4H [facility] Stop: 09/19/18 18:59 Last Admin: 09/10/18 12:14 Dose: 10 mg Documented by: Dextrose (Dextrose 50%) 25 - 50 ml IV UD PRN; Protocol PRN Reason: Hypoglycemia Protocol Stop: 09/30/18 03:45 Docusate Sodium (Colace) 100 mg PO BID PRN PRN Reason: CONSTIPATION Stop: 09/30/18 06:29 Furosemide (Lasix) 20 mg PO QAM [facility] Stop: 10/09/18 08:59 Last Admin: 09/10/18 08:38 Dose: 20 mg Documented by: Glucagon (Glucagen) 1 mg SQ UD PRN; Protocol PRN Reason: Hypoglycemia Protocol Stop: 09/30/18 03:45 Glucose (Glucose 40%) 15 - 30 gm PO UD PRN; Protocol PRN Reason: Hypoglycemia Protocol Stop: 09/30/18 03:45 Glucose (Dex4 Glucose) 4 - 8 tabs PO UD PRN; Protocol PRN Reason: Hypoglycemia Protocol Stop: 09/30/18 03:45 Heparin Sodium (Beef Lung) (Heparin Sod 10 Unit/Ml Flush) 5 ml FLUSH PRN PRN PRN Reason: Flush Stop: 10/09/18 23:03 Hydromorphone HCl (Dilaudid) 0.25 mg IV Q3H PRN PRN Reason: Pain Stop: 09/14/18 03:45 Promethazine HCl 12.5 mg/ (Sodium Chloride) 50.5 mls @ 202 mls/hr IV Q6H PRN PRN Reason: Nausea And Vomiting Stop: 09/30/18 00:49 Last Infusion: 09/07/18 12:07 Dose: Infused Documented by: Heparin Sodium/Dextrose (Heparin Sodium/Dextrose) 25,000 units in 500 mls @ 20 mls/hr IV .Q24H [facility]; Protocol Stop: 10/05/18 15:29 Last Titration: 09/10/18 07:09 Dose: 1,000 units/hr, 20 mls/hr Documented by: Daptomycin 400 mg/ Syringe 8 mls @ 4 mls/min IV DAILY@1800 [facility]; Protocol Stop: 09/23/18 17:59 Last Admin: 09/09/18 18:30 Dose: 4 mls/min Documented by: Insulin Aspart (Novolog Flexpen) 0 units SC ACHS [facility] Stop: 10/09/18 16:29 Last Admin: 09/10/18 12:14 Dose: 4 units Documented by: Ipratropium [place] (Atrovent 0.02% 0.5mg/2.5ml) 0.5 mg NEB Q4H PRN PRN Reason: sob Stop: 10/01/18 17:29 Ipratropium [place] (Atrovent 0.02% 0.5mg/2.5ml) 0.5 mg INH Q6R [facility] Stop: 10/03/18 13:59 Last Admin: 09/10/18 07:12 Dose: 0.5 mg Documented by: Levalbuterol HCl (Xopenex 0.63 Mg/3 Ml Neb) 0.63 mg NEB Q6R [facility] Stop: 10/03/18 13:59 Last Admin: 09/10/18 07:12 Dose: 0.63 mg Documented by: Levothyroxine Sodium (Synthroid) 50 mcg PO DAILYBB [facility] Stop: 09/30/18 06:29 Last Admin: 09/10/18 05:51 Dose: 50 mcg Documented by: Lisinopril (Zestril) 5 mg PO QAM [facility] Stop: 10/06/18 12:14 Last Admin: 09/10/18 08:38 Dose: 5 mg Documented by: Miscellaneous (Carbohydrates For Hypoglycemia) 15 - 30 gm PO UD PRN PRN Reason: Hypoglycemia Treatment Stop: 09/30/18 03:45 Miscellaneous Information (Consult Glycemic Management Pharmacy) 1 ea N/A UD PRN PRN Reason: Consult Stop: 10/02/18 07:11 Multivitamins/Minerals (Multivitamin W/ Minerals Tab) 1 tab PO DAILY [facility]; Protocol Stop: 09/30/18 08:59 Last Admin: 09/10/18 08:38 Dose: 1 tab Documented by: Dulera 100mcg/5mcg~ Non-Formulary Patient's Own Med 2 ea PO BID [facility] Stop: 10/09/18 20:59 Last Admin: 09/10/18 08:39 Dose: 2 puffs Documented by: Oxycodone/Acetaminophen (Percocet 5mg/325mg) 1 - 2 tab PO Q6H PRN PRN Reason: Moderate-Severe Pain Stop: 09/15/18 14:04 Pantoprazole Sodium (Protonix) 40 mg PO DAILY [facility]; Protocol Stop: 09/30/18 08:59 Last Admin: 09/10/18 08:38 Dose: 40 mg Documented by: Prednisone (Prednisone) 10 mg PO QAM [facility] Stop: 10/03/18 08:59 Last Admin: 09/03/18 08:48 Dose: 10 mg Documented by: Prednisone (Prednisone) 40 mg PO DAILY [facility] Stop: 10/10/18 10:29 Last Admin: 09/10/18 11:38 Dose: 40 mg Documented by: Rosuvastatin Calcium (Crestor) 10 mg PO DAILY [facility] Stop: 09/30/18 08:59 Last Admin: 09/10/18 08:39 Dose: 10 mg Documented by: Fluticasone/Salmeterol (Advair Diskus 100/50) 1 puffs INH BID [facility] Stop: 10/03/18 13:19 Last Admin: 09/10/18 08:40 Dose: 1 puffs Documented by: Sodium Chloride (Sodium Chloride) 1 gm PO BID [facility] Stop: 10/10/18 09:29 Last Admin: 09/10/18 11:35 Dose: Not Given Documented by: Tramadol HCl (Ultram) 25 mg PO Q4H PRN PRN Reason: Pain Stop: 09/30/18 03:45
--- NOTE | 2018-09-10 13:05 | Pharmacy Report ---
Pharmacy Glycemic Short Note 2 - Date of Service September 10, 2018 - Glycemic Short BSG Results (Last 24 hours): 09/09/18 09/09/18 09/09/18 12:19 15:28 16:26 Glucose POC Glucose 320 H* 211 H 208 H 09/09/18 09/10/18 09/10/18 20:39 02:00 06:39 Glucose 137 H POC Glucose 171 H 165 H 09/10/18 09/10/18 07:19 11:10 Glucose POC Glucose 152 H 126 H Outpatient Anti-diabetic Regimen: * Metformin 500 mg po BID * Note: also on prednisone 10 mg po daily * A1c = 7.1% on 09/02/18 Risk Factors for Insulin Resistance: * Steroids: methylprednisolone 80 mg IV q8h x24 hours then 60 mg IV q8h x24 hours (last dose 09/09@ 1200), tapered to prednisone 40 mg po qam (1st dose this afternoon) * Infection: MSSA bacteremia 2nd infected pacemaker with MSSA and Pseudomonas isolated from chest culture. Completed course of cefepime, now on daptomycin. ID following. * IVF: heparin drip mixed in D5 @ 20 mL/hr (for PE). This provides 24 g CHO IV q24h * Recent Surgery: POD 9 s/p removal of infected pacemaker * Diet: T2DM ASSESSMENT: * 83 yo F now with variable glycemic control as inpatient 2nd steroid increase * Steroid burst tapered. Will switch back to NPH to better mimic pharmacokinetics of prednisone * Spoke w RN (Debbie) - although diet ordered, patient refused breakfast and Debbie anticipates further refusal. Will therefore dose NPH at almost half of what I believe the patient would likely require, were she to have her usual po intake * Will loosen Novolog parameters 2nd steroid taper. Parameters selected will be slightly tighter than the parameters the patient was on previously when she was also on this same dose of prednisone as her BSG's at that time demonstrated a consistent trend up post-prandially PLAN FOR INPATIENT GLYCEMIC CONTROL: * Hold outpatient metformin * Basal insulin: insulin NPH 12 units SC x1 to be given with prednisone * Bolus insulin * NovoLog per scale ACHS with one overnight check * Goal range: 120-160 mg/dL * Correction factor: 25 mg/dL/unit * Carb ratio: 8 g CHO/unit PLAN FOR DISCHARGE: * Continue metformin * Per ICU rounds discussion earlier in admission- despite HbA1c of 7.1%, patient may also benefit from initiation of outpatient insulin to help further prevent diabetic complications (significant infection/bacteremia). If so, would recommend insulin NPH once daily with breakfast/prednisone.
--- NOTE | 2018-09-10 15:54 | Pulmonology Progress Note ---
Date of Service September 10, 2018 Assessment & Plan (1) Respiratory failure: The patient was started on BiPAP with significant improvement in her breathing and also improvement in oxygenation. Now on 3 L NC O2 and is oxygenating well. The patient also has chronic interstitial lung disease and she was started on now IV Solu-Medrol with significant improvement. Overall she has improved and we are going to continue with this current plan of care as prescribed. The patient has been using BiPAP on and off when she feels short of breath. Overall she seems to be doing better. The patient also remains on steroids prednisone for her chronic interstitial lung disease which will be continued. (2) Pulmonary embolus: Remains stable on anticoagulation. Pulmonary embolism type: unspecified Chronicity: acute Acute cor pulmonale presence: without acute cor pulmonale Qualified Code(s): I26.99 - Other pulmonary embolism without acute cor pulmonale Pulmonary embolism type: unspecified Chronicity: acute Acute cor pulmonale presence: without acute cor pulmonale Qualified Code(s): I26.99 - Other pulmonary embolism without acute cor pulmonale (3) Bacteremia due to methicillin susceptible Staphylococcus aureus (MSSA): Currently she is she is on broad-spectrum antibiotics, the patient is on daptomycin which will be continued. (4) Infection due to gram-negative anaerobic organism: (5) Interstitial lung disease: (6) Sjogren's syndrome with lung involvement: (7) Pulmonary hypertension: Subjective The patient also denies any abdominal pain, nausea, vomiting. Overall seems to be doing better. The patient was seen and examined. Patient is resting comfortably. Breathing is improved significantly. She is still using BiPAP on and off. She is oxygenating well on 3 L nasal cannula in mid to high 90s. She feels that she is doing better but at times she might need the BiPAP chest so that she can feel better. She denies any cough or chest pain or palpitations. Review of Systems Review of Systems: Total 12 systems reviewed and they are negative except mentioned as above in history. Physical Exam Physical Exam: Elderly female resting comfortably not in any acute distress. Currently she is on a 2 L NC O2.. HEENT: Pupils are reactive to light and accommodation. Unable to examine the oral cavity because of recent being on a BiPAP with a mask covering her nose and oral cavity. Neck: The neck is supple, no JVD and no cervical no supraclavicular adenopathy. Chest: Bilateral air entry with coarse breathing and fine crackles bilaterally. No wheezing no rhonchi heard. The breathing overall has improved since this morning. Heart: S1-S2 heard. Not able to appreciate murmur or gallop or rub. Abdomen: The abdomen is soft, nontender, bowel sounds are positive, no mass felt. Neuro: The patient is alert and awake and follows simple commands and moves all the extremities. There is no neuro deficit at this time. Extremities: No clubbing, no edema, nontender calf muscles. Skin: No rash, no lesions seen. Results & Data Vital Signs (Past 12 Hours) Vital Signs Temp Pulse Pulse Pulse Resp BP Pulse Ox 09/10/18 15:26 36.9 C 61 20 174/72 H 90 09/10/18 13:55 74 20 94 09/10/18 13:54 82 18 94 09/10/18 10:54 36.7 C 59 L 19 153/74 H 94 09/10/18 08:00 60 09/10/18 07:13 57 L 57 L 28 H 95 09/10/18 07:01 36.5 C 75 19 186/73 H 96 09/10/18 04:28 36.7 C 58 L 21 180/72 H 98 Laboratory Results 09/10/18 06:39 09/10/18 06:39 Diagnostic Findings Chest x-ray was reviewed Medications Administered Current Inpatient Medications Acetaminophen (Tylenol) 650 mg PO Q4H PRN PRN Reason: Pain or Fever Stop: 09/30/18 03:45 Last Admin: 09/09/18 23:45 Dose: 650 mg Documented by: Al Hydrox/Mg Hydrox/Simethicone (Maalox) 30 ml PO Q6H PRN PRN Reason: Dyspepsia Stop: 10/07/18 09:11 Last Admin: 09/07/18 09:39 Dose: 30 ml Documented by: Albuterol (Ventolin Hfa) 2 puffs INH Q6H PRN PRN Reason: Shortness Of Breath Stop: 10/01/18 17:29 Amlodipine Besylate (Norvasc) 10 mg PO DAILY [facility] Stop: 10/05/18 08:59 Last Admin: 09/10/18 08:39 Dose: 10 mg Documented by: Artificial Tears (Artificial Tears) 1 drops OP HS [facility] Stop: 09/30/18 20:59 Last Admin: 09/09/18 21:35 Dose: 1 drops Documented by: Clotrimazole (Mycelex) 10 mg BUCCAL [id number] [facility] Stop: 09/19/18 18:59 Last Admin: 09/10/18 12:14 Dose: 10 mg Documented by: Dextrose (Dextrose 50%) 25 - 50 ml IV UD PRN; Protocol PRN Reason: Hypoglycemia Protocol Stop: 09/30/18 03:45 Docusate Sodium (Colace) 100 mg PO BID PRN PRN Reason: CONSTIPATION Stop: 09/30/18 06:29 Furosemide (Lasix) 20 mg PO QAM [facility] Stop: 10/09/18 08:59 Last Admin: 09/10/18 08:38 Dose: 20 mg Documented by: Glucagon (Glucagen) 1 mg SQ UD PRN; Protocol PRN Reason: Hypoglycemia Protocol Stop: 09/30/18 03:45 Glucose (Glucose 40%) 15 - 30 gm PO UD PRN; Protocol PRN Reason: Hypoglycemia Protocol Stop: 09/30/18 03:45 Glucose (Dex4 Glucose) 4 - 8 tabs PO UD PRN; Protocol PRN Reason: Hypoglycemia Protocol Stop: 09/30/18 03:45 Heparin Sodium (Beef Lung) (Heparin Sod 10 Unit/Ml Flush) 5 ml FLUSH PRN PRN PRN Reason: Flush Stop: 10/09/18 23:03 Hydromorphone HCl (Dilaudid) 0.25 mg IV Q3H PRN PRN Reason: Pain Stop: 09/14/18 03:45 Promethazine HCl 12.5 mg/ (Sodium Chloride) 50.5 mls @ 202 mls/hr IV Q6H PRN PRN Reason: Nausea And Vomiting Stop: 09/30/18 00:49 Last Infusion: 09/07/18 12:07 Dose: Infused Documented by: Heparin Sodium/Dextrose (Heparin Sodium/Dextrose) 25,000 units in 500 mls @ 20 mls/hr IV .Q24H [facility]; Protocol Stop: 10/05/18 15:29 Last Titration: 09/10/18 15:19 Dose: 1,000 units/hr, 20 mls/hr Documented by: Daptomycin 400 mg/ Syringe 8 mls @ 4 mls/min IV DAILY@1800 [facility]; Protocol Stop: 09/23/18 17:59 Last Admin: 09/09/18 18:30 Dose: 4 mls/min Documented by: Insulin Aspart (Novolog Flexpen) 0 units SC ACHS [facility] Stop: 10/09/18 16:29 Last Admin: 09/10/18 12:14 Dose: 4 units Documented by: Ipratropium [place] (Atrovent 0.02% 0.5mg/2.5ml) 0.5 mg NEB Q4H PRN PRN Reason: sob Stop: 10/01/18 17:29 Ipratropium [place] (Atrovent 0.02% 0.5mg/2.5ml) 0.5 mg INH Q6R [facility] Stop: 10/03/18 13:59 Last Admin: 09/10/18 13:53 Dose: 0.5 mg Documented by: Levalbuterol HCl (Xopenex 0.63 Mg/3 Ml Neb) 0.63 mg NEB Q6R [facility] Stop: 10/03/18 13:59 Last Admin: 09/10/18 13:53 Dose: 0.63 mg Documented by: Levothyroxine Sodium (Synthroid) 50 mcg PO DAILYBB [facility] Stop: 09/30/18 06:29 Last Admin: 09/10/18 05:51 Dose: 50 mcg Documented by: Lisinopril (Zestril) 5 mg PO QAM [facility] Stop: 10/06/18 12:14 Last Admin: 09/10/18 08:38 Dose: 5 mg Documented by: Miscellaneous (Carbohydrates For Hypoglycemia) 15 - 30 gm PO UD PRN PRN Reason: Hypoglycemia Treatment Stop: 09/30/18 03:45 Miscellaneous Information (Consult Glycemic Management Pharmacy) 1 ea N/A UD PRN PRN Reason: Consult Stop: 10/02/18 07:11 Multivitamins/Minerals (Multivitamin W/ Minerals Tab) 1 tab PO DAILY [facility]; Protocol Stop: 09/30/18 08:59 Last Admin: 09/10/18 08:38 Dose: 1 tab Documented by: Dulera 100mcg/5mcg~ Non-Formulary Patient's Own Med 2 ea PO BID [facility] Stop: 10/09/18 20:59 Last Admin: 09/10/18 08:39 Dose: 2 puffs Documented by: Oxycodone/Acetaminophen (Percocet 5mg/325mg) 1 - 2 tab PO Q6H PRN PRN Reason: Moderate-Severe Pain Stop: 09/15/18 14:04 Pantoprazole Sodium (Protonix) 40 mg PO DAILY [facility]; Protocol Stop: 09/30/18 08:59 Last Admin: 09/10/18 08:38 Dose: 40 mg Documented by: Prednisone (Prednisone) 10 mg PO QAM [facility] Stop: 10/03/18 08:59 Last Admin: 09/03/18 08:48 Dose: 10 mg Documented by: Prednisone (Prednisone) 40 mg PO DAILY [facility] Stop: 10/10/18 10:29 Last Admin: 09/10/18 11:38 Dose: 40 mg Documented by: Rosuvastatin Calcium (Crestor) 10 mg PO DAILY [facility] Stop: 09/30/18 08:59 Last Admin: 09/10/18 08:39 Dose: 10 mg Documented by: Fluticasone/Salmeterol (Advair Diskus 100/50) 1 puffs INH BID [facility] Stop: 10/03/18 13:19 Last Admin: 09/10/18 08:40 Dose: 1 puffs Documented by: Sodium Chloride (Sodium Chloride) 1 gm PO BID [facility] Stop: 10/10/18 09:29 Last Admin: 09/10/18 13:12 Dose: 1 gm Documented by: Tramadol HCl (Ultram) 25 mg PO Q4H PRN PRN Reason: Pain Stop: 09/30/18 03:45 PG Care Time/CCT Total # of Minutes Spent Total Time Spent with Patient: Total time spent is greater than 50% in coordination of care (as documented) at patient's floor/unit and/or counseling patient:
[2018-09-10] MEDS: OXYCODONE/ACETAMINOPHEN 5mg/325mg TAB PO PRN (16:03)
[2018-09-10] MEDS: DAPTOmycin 400 MG in SYRINGE 0 ML IV SCH (18:58)
--- NOTE | 2018-09-10 19:03 | Infectious Disease Progress Nt ---
Date of Service September 10, 2018 Assessment & Plan (1) Infection of pacemaker pocket: Patient with infected pacemaker pocket with MSSA bacteremia with staph aureus and Pseudomonas growing in pacemaker pocket. As discussed with hospitalist, patient to be changed to IV daptomycin and oral ciprofloxacin to allow easier outpatient treatment. Will follow. (2) Bacteremia due to methicillin susceptible Staphylococcus aureus (MSSA): (3) Infection due to gram-negative anaerobic organism: Subjective The patient was seen and examined. Patient is resting comfortably. Breathing is improved significantly. She is still using BiPAP on and off. She is oxygenating well on 3 L nasal cannula in mid to high 90s. She feels that she is doing better but at times she might need the BiPAP chest so that she can feel better. She denies any cough or chest pain or palpitations. Review of Systems Review of Systems: All systems reviewed & are unremarkable except as noted in HPI & below Physical Exam Constitutional: WD/WN, vitals as above comfortable; no acute distress Eyes: PERRL, conjunctivae normal, anicteric sclerae ENMT: external ear and nose normal, oropharynx normal Neck: trachea midline, no thyromegaly neck nontender Respiratory: normal respiratory effort, lungs clear to auscultation normal percussion; no respiratory distress and does not use accessory muscles Cardiovascular: Rate/Rhythm: regular rate and regular rhythm Heart Sounds: normal S1 and normal S2; no gallop, no murmur and no cardiac rub Vessels: normal peripheral pulses; no JVD Gastrointestinal (Abdomen): normal bowel sounds, soft, nontender, no hepatosplenomegaly Musculoskeletal: no cyanosis or clubbing, extremities motor strength 5/5 Spine: thoracic spine normal to inspection and lumbar spine normal to inspection; no cervical spinal tenderness Skin: no rashes, warm and dry normal turgor and + wound (Pacemaker pocket with erythema drainage); no rashes Neurologic: patellar DTR's 2+ bilat, sensation intact moves all extremities and awake; no focal motor deficits Motor/Sensory: no sensory deficit Psychiatric: A+Ox3, euthymic affect Orientation: cooperative Lymphatic: no cervical or axillary lymphadenopathy no inguinal lymphadenopathy Results & Data Vital Signs (Past 12 Hours) Vital Signs Temp Pulse Pulse Pulse Resp BP Pulse Ox 09/10/18 18:37 61 178/92 H 87 L 09/10/18 15:26 36.9 C 61 20 174/72 H 90 0726/19 13:55 74 20 94 09/10/18 13:54 82 18 94 09/10/18 10:54 36.7 C 59 L 19 153/74 H 94 09/10/18 08:00 60 09/10/18 07:13 57 L 57 L 28 H 95 Laboratory Results Short CBC 09/10/18 Range/Units 06:39 WBC 19.74 H (4.8-10.8) K/uL Hgb 10.4 L (12.0-16.0) g/dL Hct 30.6 L (37-47) % Plt Count 303 (130-400) K/uL BMP 09/10/18 06:39 Sodium 125 L Potassium 3.5 Chloride 87 L Carbon Dioxide 28 BUN 26 H Creatinine 0.73 Glucose 137 H Calcium 8.6 Cardiac Enzymes 09/10/18 Range/Units 06:39 Total Creatine Kinase 52 (26-192) U/L Diagnostic Findings Microbiology 09/02/18 08:20 Blood Aerobic Blood Culture - Final No growth in Aerobic bottle after 5 days. 09/02/18 08:20 Blood Anaerobic Blood Culture - Final No growth in Anaerobic bottle after 5 days. 09/02/18 08:08 Blood Aerobic Blood Culture - Final No growth in Aerobic bottle after 5 days. 09/02/18 08:08 Blood Anaerobic Blood Culture - Final No growth in Anaerobic bottle after 5 days. 08/31/18 Unknown Chest Gram Stain - Final 08/31/18 Unknown Chest Wound Culture - Final Pseudomonas aeruginosa Staphylococcus aureus 08/30/18 23:59 Blood Aerobic Blood Culture - Final Staphylococcus aureus 08/30/18 23:59 Blood Anaerobic Blood Culture - Final Staphylococcus aureus 08/30/18 23:55 Blood Aerobic Blood Culture - Final Staphylococcus aureus 08/30/18 23:55 Blood Anaerobic Blood Culture - Final Staphylococcus aureus
[2018-09-10] MEDS: ARTIFICIAL TEARS OP SCH (21:52)
[2018-09-10] MEDS: ACETAMINOPHEN 325 MG TAB PO PRN (22:01)
[2018-09-10] MEDS: Heparin Adult STANDARD Wt-Based Dextrose 5% 25,000 units/500 mL IV SCH (22:37)
[2018-09-11] MEDS: OXYCODONE/ACETAMINOPHEN 5mg/325mg TAB PO PRN (00:31)
[2018-09-11] MEDS: LEVALBUTEROL HCL 0.63 MG/3 ML NEB NEB SCH ×4 (01:57→18:59)
[2018-09-11] MEDS: IPRATROPIUM BROMIDE NEB SOLN 0.02% 2.5 ML VIAL INH SCH ×4 (01:57→18:59)
[2018-09-11] MEDS ORDERED: INSULIN ASPART 100 UNITS/ML 3 ML PEN SC SCH (02:00)
[2018-09-11] MEDS: HYDROmorphone INJ 0.5 MG/0.5 ML SYR IV PRN (04:19)
[2018-09-11] MEDS: LEVOTHYROXINE SODIUM 50 MCG TABLET PO SCH (05:36)
[2018-09-11] MEDS ORDERED: XOPENEX/ATROVENT 1.25mg/0.5MG NEB COMBO NEB PRN (05:56)
[2018-09-11] MEDS ORDERED: LISINOPRIL 10 MG TAB PO SCH ×2 (06:00→09:00)
[2018-09-11] MEDS ORDERED: LEVALBUTEROL 1.25MG/0.5ML NEB INH PRN (06:00)
[2018-09-11] MEDS ORDERED: IPRATROPIUM BROMIDE NEB SOLN 0.02% 2.5 ML VIAL INH PRN (06:00)
[2018-09-11 07:11] LABS: Eosinophils # (auto) 0.01 K/uL (0-0.5); Hematocrit (blood only) 30.3 % (37-47); Hemoglobin 10.6 g/dL (12.0-16.0); Immature Granulocytes # (auto) 0.11 K/uL (0.00-0.02); Immature Granulocytes % (auto) 0.5 %; Lymphocytes # (auto) 1.26 K/uL (1.2-3.4); Lymphocytes % (auto) 5.8 %; Mean Corpuscular Volume 92.1 fL (80-100); Mean Platelet Volume 10.4 fL (7.4-10.4); Monocytes % (auto) 3.2 %; Neutrophils # (auto) 19.48 K/uL (1.4-6.5); Neutrophils % (auto) 90.5 %; Platelet Count 306 K/uL (130-400); RDW Coefficient of Variation 12.9 % (11.5-14.5); RDW Standard Deviation 43.6 fL (36.4-46.3); Red Blood Count 3.29 M/uL (4.2-5.4); White Blood Count 21.56 K/uL (4.8-10.8)
[2018-09-11 07:14] LABS: Base Excess ABG 5.6 mEq/L (-9-1.8); HCO3 ABG 32 mmol/L (19-24); Oxygen Saturation ABG 89.8 % (90-95); PCO2 ABG 55 mmHg (35-46); PO2 ABG 65 mm/Hg (80-95); pH ABG 7.38 (7.35-7.45)
[2018-09-11 07:27] LABS: BUN Creatinine Ratio 41.4 (10-20); Calcium 8.8 mg/dl (8.5-10.1); Creatinine Clr Calc Pharmacy 71.1 ml/min; Creatinine Clr Calc Pharmacy 75.7 ml/min; Est GFR (Non-African American) 82.8; Est GFR (Non-African American) 84.6; Magnesium 2.1 mg/dl (1.8-2.4); Potassium 3.3 mmol/L (3.5-5.1)
[2018-09-11 07:32] LABS: Partial Thromboplastin Ratio 2.7
[2018-09-11] MEDS: INSULIN ASPART 100 UNITS/ML 3 ML PEN SC SCH ×4 (07:59→20:47)
[2018-09-11] MEDS ORDERED: POTASSIUM CHLORIDE 20 MEQ TABCR PO STA (08:01)
--- NOTE | 2018-09-11 08:08 | XRay Report ---
SINGLE VIEW CHEST CLINICAL HISTORY: Hypoxia. FINDINGS: An AP, portable, upright chest radiograph is compared to study dated 09/07/2018. Correlation is made with chest CT dated 09/05/2018. The examination is degraded by portable technique and patient rotation. A right PICC line is new from previous. The tip of the catheter projects over the right at rium. The heart is enlarged and there is atherosclerotic calcification of the thoracic aorta. There i s pulmonary vascular congestion with interstitial edema. There are low lung volumes. Small pleural ef fusions are noted. No pneumothorax is seen. The skeletal structures are osteopenic. The bony thorax i s grossly intact. IMPRESSION: 1. Cardiomegaly with evidence of congestive failure and interstitial edema. 2. Small pleural effusions. 3. A right PICC line is new from previous. Electronically signed by: Alejandro Tom M.D. 09/11/2018 8:06 AM
[2018-09-11] MEDS ORDERED: FUROSEMIDE 40 MG/4 ML VIAL IV STA ×2 (08:39→13:44)
[2018-09-11] MEDS: CEFEPIME 2,000 MG in SYRINGE 7.5 ML IV SCH ×2 (08:56→16:53)
[2018-09-11] MEDS ORDERED: CIPROFLOXACIN 500 MG TAB PO SCH (09:00)
[2018-09-11] MEDS ORDERED: INSULIN HUMAN NPH SC ONE (09:00)
[2018-09-11 09:16] LABS: Allen Test Pos (Pos)
[2018-09-11] MEDS: CLOTRIMAZOLE 10 MG TROCHE BUCCAL SCH ×5 (09:20→23:08)
[2018-09-11] MEDS: CEROVITE ADV FORMULA TAB PO SCH (09:20)
[2018-09-11] MEDS: FLUTICASONE/SALMETEROL 100/50 (ADVAIR) 14 PUFF/1 INHALER INH SCH ×2 (09:20→21:00)
[2018-09-11] MEDS: FUROSEMIDE 20 MG TAB PO SCH (09:20)
[2018-09-11] MEDS: ROSUVASTATIN CALCIUM 10 MG TAB PO SCH (09:20)
[2018-09-11] MEDS: AMLODIPINE BESYLATE 5 MG TAB PO SCH (09:21)
[2018-09-11] MEDS: PANTOprazole 40 MG TAB PO SCH (09:22)
[2018-09-11] MEDS: predniSONE 20 MG TAB PO SCH (09:22)
[2018-09-11] MEDS: SODIUM CHLORIDE 1 GM TABLET PO SCH (09:22)
[2018-09-11] MEDS: POTASSIUM CHLORIDE / WTR 10 MEQ/100 ML PLCT IV SCH ×4 (09:39→12:37)
--- NOTE | 2018-09-11 10:23 | Cardiology Progress Note ---
Date of Service September 11, 2018 Assessment & Plan (1) Interstitial lung disease: 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 Pacemaker extracted 09/01/2018 without complication. Remains sinus rhythm/tachycardia with 2-1 AV block on telemetry. Pulmonary status worse this morning possible component of congestive heart failure superimposed on chronic interstitial lung disease IV furosemide administered Patient unable to take oral meds due to hypoxia topical nitrates will be added for hypertension management We will follow patient closely on BiPAP after diuresis. Contact pulmonology regarding clinical status change and marginal respiratory status (2) Pulmonary embolus: (3) Bacteremia due to methicillin susceptible Staphylococcus aureus (MSSA): (4) Mobitz type 2 second degree atrioventricular block: 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 Pacemaker extracted 09/01/2018 without complication. Remains sinus rhythm/t achycardia with 2-1 AV block on telemetry. (5) Infection of pacemaker pocket: Continue current antibiotic therapy per direction of infectious disease. Subjective Patient more dyspneic overnight, required initiation of BiPAP once again this morning. Chest x-ray consistent with mild to moderate congestive heart failure. Molina inserted with greater than 1200 cc output IV Lasix already ordered. Blood pressures are trending high. Rhythm remains 2- 1 block with adequate rates No fevers or chills currently Unable to take meds this morning due to need for BiPAP and prompt desaturation when off Physical Exam Constitutional: + ill appearing On BiPAP Eyes: PERRL, conjunctivae normal, anicteric sclerae Neck: trachea midline, no thyromegaly Respiratory: Auscultation: + diminished lung sounds, + crackles and + rales Cardiovascular: Rate/Rhythm: regular rate Heart Sounds: normal S1 and normal S2 Extremities: + edema (1+) Chest (Breasts): Additional Comments: Pacemaker pocket bandaged and packed minimal drainage on last exchange Gastrointestinal (Abdomen): Percussion/Palpation: abdomen soft Skin: no rashes, warm and dry Results & Data Vital Signs (Past 12 Hours) Vital Signs Temp Pulse Pulse Resp BP BP Pulse Ox 09/11/18 07:26 36.5 C 58 L 20 174/79 H 95 09/11/18 07:13 55 L 24 93 09/11/18 07:12 55 L 17 93 09/11/18 05:49 182/77 H 09/11/18 04:08 36.4 C L 57 L 20 189/74 H 92 09/11/18 04:00 89 L 09/11/18 01:58 55 L 55 L 24 91 09/11/18 00:57 57 L 09/11/18 00:54 172/68 H 09/11/18 00:09 36.4 C L 58 L 24 93 09/10/18 22:31 60 22 91 Laboratory Results Laboratory Results - last 24 hr 09/10/18 09/10/18 09/10/18 11:10 16:31 21:56 WBC RBC Hgb Hct MCV MCH MCHC RDW Std Deviation RDW Coeff of Gabriel Plt Count MPV Immature Gran % (Auto) Neut % (Auto) Lymph % (Auto) Jones % (Auto) Eos % (Auto) Baso % (Auto) Immature Gran # (Auto) Neut # (Auto) Lymph # (Auto) Jones # (Auto) Eos # (Auto) Baso # (Auto) APTT PTT Ratio ABG pH ABG pCO2 ABG pO2 ABG HCO3 ABG O2 Saturation ABG Base Excess Wilian Test Barometric Pressure Oxygen Given Sodium Potassium Chloride Carbon Dioxide Anion Gap BUN Creatinine Est Cr Clr Drug Dosing Est GFR ( Amer) Est GFR (Non-Af Amer) BUN/Creatinine Ratio Glucose POC Glucose 126 H 141 H 283 H Calcium Magnesium 09/11/18 09/11/18 09/11/18 01:56 06:48 06:48 WBC 21.56 H RBC 3.29 L Hgb 10.6 L Hct 30.3 L MCV 92.1 MCH 32.2 MCHC 35.0 RDW Std Deviation 43.6 RDW Coeff of Gabriel 12.9 Plt Count 306 MPV 10.4 Immature Gran % (Auto) 0.5 Neut % (Auto) 90.5 Lymph % (Auto) 5.8 Jones % (Auto) 3.2 Eos % (Auto) 0.0 Baso % (Auto) 0.0 Immature Gran # (Auto) 0.11 H Neut # (Auto) 19.48 H Lymph # (Auto) 1.26 Jones # (Auto) 0.70 H Eos # (Auto) 0.01 Baso # (Auto) 0.00 APTT PTT Ratio ABG pH ABG pCO2 ABG pO2 ABG HCO3 ABG O2 Saturation ABG Base Excess Wilian Test Barometric Pressure Oxygen Given Sodium Potassium Chloride Carbon Dioxide Anion Gap BUN Creatinine 0.62 Est Cr Clr Drug Dosing 75.7 Est GFR ( Amer) 98.0 Est GFR (Non-Af Amer) 84.6 BUN/Creatinine Ratio Glucose POC Glucose 217 H Calcium Magnesium 09/11/18 09/11/18 09/11/18 06:48 06:48 07:02 WBC RBC Hgb Hct MCV MCH MCHC RDW Std Deviation RDW Coeff of Gabriel Plt Count MPV Immature Gran % (Auto) Neut % (Auto) Lymph % (Auto) Jones % (Auto) Eos % (Auto) Baso % (Auto) Immature Gran # (Auto) Neut # (Auto) Lymph # (Auto) Jones # (Auto) Eos # (Auto) Baso # (Auto) APTT 72.0 H* PTT Ratio 2.7 ABG pH 7.38 ABG pCO2 55 H ABG pO2 65 L ABG HCO3 32 H ABG O2 Saturation 89.8 L ABG Base Excess 5.6 H Wilian Test Pos Barometric Pressure 739.3 Oxygen Given 5L Sodium 126 L Potassium 3.3 L Chloride 85 L Carbon Dioxide 32 Anion Gap 9.0 BUN 27 H Creatinine 0.66 Est Cr Clr Drug Dosing 71.1 Est GFR ( Amer) 96.0 Est GFR (Non-Af Amer) 82.8 BUN/Creatinine Ratio 41.4 H Glucose 125 H POC Glucose Calcium 8.8 Magnesium 2.1 09/11/18 07:25 WBC RBC Hgb Hct MCV MCH MCHC RDW Std Deviation RDW Coeff of Gabriel Plt Count MPV Immature Gran % (Auto) Neut % (Auto) Lymph % (Auto) Jones % (Auto) Eos % (Auto) Baso % (Auto) Immature Gran # (Auto) Neut # (Auto) Lymph # (Auto) Jones # (Auto) Eos # (Auto) Baso # (Auto) APTT PTT Ratio ABG pH ABG pCO2 ABG pO2 ABG HCO3 ABG O2 Saturation ABG Base Excess Wilian Test Barometric Pressure Oxygen Given Sodium Potassium Chloride Carbon Dioxide Anion Gap BUN Creatinine Est Cr Clr Drug Dosing Est GFR ( Amer) Est GFR (Non-Af Amer) BUN/Creatinine Ratio Glucose POC Glucose 147 H Calcium Magnesium (1) Pulmonary embolus Acute cor pulmonale presence: without acute cor pulmonale Chronicity: acute Pulmonary embolism type: unspecified Qualified Code(s): I26.99 - Other pulmonary embolism without acute cor pulmonale
[2018-09-11] MEDS: DULERA PO SCH ×2 (10:34→21:01)
[2018-09-11] MEDS: NITROGLYCERIN 2% OINTMENT 30GM TUBE EXT SCH ×3 (11:09→23:08)
[2018-09-11] MEDS ORDERED: HydrALAZINE HCL 20 MG/ML VIAL IV ONE (13:44)
[2018-09-11] MEDS ORDERED: MoRPHine SULFATE 2 MG/ML CARP IV STA ×2 (13:53→20:26)
--- NOTE | 2018-09-11 13:54 | Hospitalist Progress Note ---
Date of Service September 11, 2018 Assessment & Plan (1) Respiratory failure: Acute on Chronic Hypoxic Respiratory Failure Interstitial lung disease History of Sjogren's syndrome with lung involvement On chronic prednisone [address] chest ordered: Positive for right lower lobe pulmonary emboli Appreciate pulmonary input and recommendation IV Lasix as needed and BiPAP for shortness of breath Has been on intravenous Solu-Medrol and nebulized bronchodilator-changed to oral as of 09/09 We will change his steroid orally 50 mg daily and taper to continue 10 mg until she sees her replenishment buyer as an outpatient Condition got worse since last night with increasing shortness of breath and c rackles in the lungs with decreasing saturation Chest x-ray showed more congestion and requiring 100% FiO2 to maintain saturation Administered 40 of Lasix IV at around 930 and repeat another dose now at around 2 PM Discussed with employee service officer and distribution lead (2) Sepsis: Secondary to pacemaker site infection, bacteremia 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 Immunocompromised patient with Sjogren's syndrome on chronic steroid Rx S/Post removal of pacemaker on 09/01/2018 Wound culture: Positive for Pseudomonas and MSSA Blood cultures: Positive for MSSA Continue cefepime IV Appreciate ID input and recommendation -Will DC his IV cefepime and replaced with intravenous daptomycin PICC line has been placed and will continue daptomycin for 2 weeks White count has been increased Cefepime has been restarted and daptomycin continued Hyponatremia Sodium level went down to 125 Will advise less fluid intake Sodium tablets, 1 g twice a day Sodium level went up to 126 Pulmonary embolism Has been on intravenous heparin Will likely change to Eliquis on discharge-we will discuss with replenishment buyer Will be discharged tomorrow on Eliquis/Xarelto Hypertension Amlodipine increased to 10 mg p.o. daily for better BP control Lisinopril 5 mg p.o. daily added Blood pressure noted to be very high since this morning Did not take her usual oral medications Nitropaste applied and will give 5 mg hydralazine IV DM2 ISS Blood sugar has been noted to be high secondary to nasal steroid SSI-parameters have been changed DVT prophylaxis. On heparin drip Full code Disposition Pending DVT prophylaxis. Lovenox subcu Full code Discussed with the patient Awaiting placement Subjective 09/08 The patient was seen and examined in telemetry unit Complaints of weakness and shortness of breath on exertion Denies any symptoms at rest No fever and/or chills 09/09 The patient was seen and examined in telemetry unit He remains stable Denies any significant chest pain no palpitation Out of bed in a chair has been getting physical therapy 09/10 The patient was seen and examined in the telemetry unit She denies any significant symptoms Remains to be mild shortness of breath at rest She has been waiting to go to [facility] [place] 09/11 The patient was seen and examined today in telemetry unit in presence of her youngest daughter She has been noted to have high blood pressure of systolic more than 200 with increasing shortness of breath since this morning She has been requiring BiPAP with 100% FiO2 to maintain saturation Denies any significant pain Review of Systems Review of Systems: All systems reviewed and are unremarkable except as noted below Constitutional: + malaise; no fever and no chills Respiratory: + dyspnea Neurologic: Communicating normally Physical Exam Physical Exam: Respiratory distress in bed and is on BiPAP Constitutional: + acute distress (Secondary to increasing shortness of breath), + ill appearing, + thin and comfortable Eyes: PERRL, conjunctivae normal, anicteric sclerae ENMT: external ear and nose normal, oropharynx normal Mallampati Class: II Neck: trachea midline, no thyromegaly normal visual inspection; neck nontender Respiratory: + respiratory distress, + labored breathing, + retractions and + uses accessory muscles Auscultation: + diminished lung sounds and + crackles (Pronounced bilaterally) Cardiovascular: Rate/Rhythm: regular rate and regular rhythm Heart Sounds: normal S1 and normal S2 Vessels: normal peripheral pulses Extremities: no edema Chest (Breasts): Chest: + pacemaker (Left infraclavicular pacemaker pocket with ongoing mild erythema, and drainage from incision site, unchanged compared to yesterday. She states that it was tender to palpation yesterday and this has improved.) Gastrointestinal (Abdomen): Inspection/Auscultation: abdomen normal to inspection and normal bowel sounds Percussion/Palpation: abdomen soft Musculoskeletal: no cyanosis or clubbing, extremities motor strength 5/5 Spine: thoracic spine normal to inspection and lumbar spine normal to inspection; no pain with cervical ROM and no cervical spinal tenderness Skin: no rashes, warm and dry normal turgor and + wound (Pacemaker pocket with erythema drainage); no rashes Neurologic: moves all extremities and awake; no focal motor deficits Motor/Sensory: no sensory deficit Very weak and lethargic. Still co mmunicating almost normal Psychiatric: A+Ox3, euthymic affect Orientation: alert, oriented x 3 and cooperative Lymphatic: no cervical or axillary lymphadenopathy no inguinal lymphadenopathy Results & Data Vital Signs (Past 12 Hours) Vital Signs Temp Pulse Pulse Resp BP BP Pulse Ox 09/11/18 13:30 100 09/11/18 11:49 198/70 H 09/11/18 11:24 36.9 C 62 18 208/86 H 211/89 H 92 09/11/18 08:00 55 L 09/11/18 07:26 36.5 C 58 L 20 174/79 H 95 09/11/18 07:13 55 L 24 93 09/11/18 07:12 55 L 17 93 09/11/18 05:49 182/77 H 09/11/18 04:08 36.4 C L 57 L 20 189/74 H 92 09/11/18 04:00 89 L 09/11/18 01:58 55 L 55 L 24 91 Laboratory Results Short CBC 09/11/18 Range/Units 06:48 WBC 21.56 H (4.8-10.8) K/uL Hgb 10.6 L (12.0-16.0) g/dL Hct 30.3 L (37-47) % Plt Count 306 (130-400) K/uL BMP 09/11/18 09/11/18 06:48 06:48 Sodium 126 L Potassium 3.3 L Chloride 85 L Carbon Dioxide 32 BUN 27 H Creatinine 0.62 0.66 Glucose 125 H Calcium 8.8 Medications Administered Current Inpatient Medications Acetaminophen (Tylenol) 650 mg PO Q4H PRN PRN Reason: Pain or Fever Stop: 09/30/18 03:45 Last Admin: 09/10/18 22:01 Dose: 650 mg Documented by: Al Hydrox/Mg Hydrox/Simethicone (Maalox) 30 ml PO Q6H PRN PRN Reason: Dyspepsia Stop: 10/07/18 09:11 Last Admin: 09/07/18 09:39 Dose: 30 ml Documented by: Albuterol (Ventolin Hfa) 2 puffs INH Q6H PRN PRN Reason: Shortness Of Breath Stop: 10/01/18 17:29 Amlodipine Besylate (Norvasc) 10 mg PO DAILY [facility] Stop: 10/05/18 08:59 Last Admin: 09/11/18 09:21 Dose: Not Given Documented by: Artificial Tears (Artificial Tears) 1 drops OP HS [facility] Stop: 09/30/18 20:59 Last Admin: 09/10/18 21:52 Dose: Not Given Documented by: Clotrimazole (Mycelex) 10 mg BUCCAL [id number] [facility] Stop: 09/19/18 18:59 Last Admin: 09/11/18 11:41 Dose: Not Given Documented by: Dextrose (Dextrose 50%) 25 - 50 ml IV UD PRN; Protocol PRN Reason: Hypoglycemia Protocol Stop: 09/30/18 03:45 Docusate Sodium (Colace) 100 mg PO BID PRN PRN Reason: CONSTIPATION Stop: 09/30/18 06:29 Furosemide (Lasix) 20 mg PO QAM [facility] Stop: 10/09/18 08:59 Last Admin: 09/11/18 09:20 Dose: Not Given Documented by: Furosemide (Lasix) 40 mg IV NOW STA Stop: 09/11/18 13:45 Glucagon (Glucagen) 1 mg SQ UD PRN; Protocol PRN Reason: Hypoglycemia Protocol Stop: 09/30/18 03:45 Glucose (Glucose 40%) 15 - 30 gm PO UD PRN; Protocol PRN Reason: Hypoglycemia Protocol Stop: 09/30/18 03:45 Glucose (Dex4 Glucose) 4 - 8 tabs PO UD PRN; Protocol PRN Reason: Hypoglycemia Protocol Stop: 09/30/18 03:45 Heparin Sodium (Beef Lung) (Heparin Sod 10 Unit/Ml Flush) 5 ml FLUSH PRN PRN PRN Reason: Flush Stop: 10/09/18 23:03 Hydralazine HCl (Hydralazine Hcl) 5 mg IV NOW ONE Stop: 09/11/18 13:45 Hydromorphone HCl (Dilaudid) 0.25 mg IV Q3H PRN PRN Reason: Pain Stop: 09/14/18 03:45 Last Admin: 09/11/18 04:19 Dose: 0.25 mg Documented by: Promethazine HCl 12.5 mg/ (Sodium Chloride) 50.5 mls @ 202 mls/hr IV Q6H PRN PRN Reason: Nausea And Vomiting Stop: 09/30/18 00:49 Last Infusion: 09/07/18 12:07 Dose: Infused Documented by: Heparin Sodium/Dextrose (Heparin Sodium/Dextrose) 25,000 units in 500 mls @ 19 mls/hr IV .Q24H [facility]; Protocol Stop: 10/05/18 15:29 Last Titration: 09/11/18 07:57 Dose: 950 units/hr, 19 mls/hr Documented by: Daptomycin 400 mg/ Syringe 8 mls @ 4 mls/min IV DAILY@1800 [facility]; Protocol Stop: 09/23/18 17:59 Last Admin: 09/10/18 18:58 Dose: 4 mls/min Documented by: Cefepime HCl 2,000 mg/ Syringe 20 mls @ 5 mls/min IV Q8H [facility]; Protocol Stop: 09/21/18 07:59 Last Admin: 09/11/18 08:56 Dose: 5 mls/min Documented by: Insulin Aspart (Novolog Flexpen) 0 units SC ACHS [facility] Stop: 10/09/18 16:29 Last Admin: 09/11/18 11:43 Dose: Not Given Documented by: Ipratropium [place] (Atrovent 0.02% 0.5mg/2.5ml) 0.5 mg INH Q6R [facility] Stop: 10/03/18 13:59 Last Admin: 09/11/18 07:12 Dose: 0.5 mg Documented by: Ipratropium [place] (Atrovent 0.02% 0.5mg/2.5ml) 0.5 mg INH Q2H PRN PRN Reason: Shortness Of Breath Or Wheezing Stop: 10/11/18 05:59 Levalbuterol HCl (Xopenex 0.63 Mg/3 Ml Neb) 0.63 mg NEB Q6R [facility] Stop: 10/03/18 13:59 Last Admin: 09/11/18 07:12 Dose: 0.63 mg Documented by: Levalbuterol HCl (Xopenex 1.25mg/0.5ml Neb) 1.25 mg INH Q2H PRN PRN Reason: Shortness Of Breath Or Wheezing Stop: 10/11/18 05:59 Levothyroxine Sodium (Synthroid) 50 mcg PO DAILYBB [facility] Stop: 09/30/18 06:29 Last Admin: 09/11/18 05:36 Dose: 50 mcg Documented by: Lisinopril (Zestril) 20 mg PO QAM [facility] Stop: 10/12/18 08:59 Miscellaneous (Carbohydrates For Hypoglycemia) 15 - 30 gm PO UD PRN PRN Reason: Hypoglycemia Treatment Stop: 09/30/18 03:45 Miscellaneous Information (Consult Glycemic Management Pharmacy) 1 ea N/A UD P RN PRN Reason: Consult Stop: 10/02/18 07:11 Morphine Sulfate (Morphine Sulfate) 1 mg IV NOW STA Stop: 09/11/18 13:45 Multivitamins/Minerals (Multivitamin W/ Minerals Tab) 1 tab PO DAILY [facility]; Prot ocol Stop: 09/30/18 08:59 Last Admin: 09/11/18 09:20 Dose: Not Given Documented by: Nitroglycerin (Nitro-Bid 2%) 0.5 inch EXT Q6H [facility] Stop: 10/11/18 10:29 Last Admin: 09/11/18 11:09 Dose: 0.5 inch Documented by: Dulera 100mcg/5mcg~ Non-Formulary Patient's Own Med 2 ea PO BID [facility] Stop: 10/09/18 20:59 Last Admin: 09/11/18 10:34 Dose: Not Given Documented by: Oxycodone/Acetaminophen (Percocet 5mg/325mg) 1 - 2 tab PO Q6H PRN PRN Reason: Moderate-Severe Pain Stop: 09/15/18 14:04 Last Admin: 09/11/18 00:31 Dose: 2 tab Documented by: Pantoprazole Sodium (Protonix) 40 mg PO DAILY [facility]; Protocol Stop: 09/30/18 08:59 Last Admin: 09/11/18 09:22 Dose: Not Given Documented by: Prednisone (Prednisone) 10 mg PO QAM [facility] Stop: 10/03/18 08:59 Last Admin: 09/03/18 08:48 Dose: 10 mg Documented by: Prednisone (Prednisone) 40 mg PO DAILY [facility] Stop: 10/10/18 10:29 Last Admin: 09/11/18 09:22 Dose: Not Given Documented by: Rosuvastatin Calcium (Crestor) 10 mg PO DAILY [facility] Stop: 09/30/18 08:59 Last Admin: 09/11/18 09:20 Dose: Not Given Documented by: Fluticasone/Salmeterol (Advair Diskus 100/50) 1 puffs INH BID [facility] Stop: 10/03/18 13:19 Last Admin: 09/11/18 09:20 Dose: Not Given Documented by: Sodium Chloride (Sodium Chloride) 1 gm PO BID [facility] Stop: 10/10/18 09:29 Last Admin: 09/11/18 09:22 Dose: Not Given Documented by: Tramadol HCl (Ultram) 25 mg PO Q4H PRN PRN Reason: Pain Stop: 09/30/18 03:45
[2018-09-11 14:47] LABS: Partial Thromboplastin Ratio 1.9
[2018-09-11 14:48] LABS: Partial Thromboplastin Time 50.2 Seconds (21.0-31.0)
[2018-09-11 16:45] LABS: iSTAT Allen Test Pass; iSTAT Arterial Blood Gas HCO3 32 meg/L (19-24); iSTAT Arterial Blood Gas pCO2 47 mmHg (35-46); iSTAT Arterial Blood Gas pH 7.45 (7.35-7.45); iSTAT Carbon Dioxide 34 mEq/l (24-31); iSTAT FiO2 60 %; iSTAT Site R Radial
--- NOTE | 2018-09-11 17:09 | Pulmonology Progress Note ---
Date of Service September 11, 2018 Assessment & Plan (1) Respiratory failure: The patient has acute on chronic hypoxic respiratory failure secondary to chronic interstitial lung disease as well as pulmonary edema. She is also hypertensive and her blood pressure is quite high and due to that she has been going into pulmonary edema. The patient was also evaluated by cardiology. Currently she is on IV Lasix and also on Nitropaste and other blood pressure medications. Her blood pressure is still elevated at 185/60. She seems to be comfortable on BiPAP and oxygenating around 92 to 94%. The chest x-ray from today was consistent with worsening pulmonary edema. I have discussed the case with Dr. Mckinnon and also Dr. Verma the research physicist. We are going to continue with the current plan of care as prescribed. (2) Pulmonary embolus: The patient remains on IV heparin which will be changed to Eliquis tomorrow. Pulmonary embolism type: unspecified Chronicity: acute Acute cor pulmonale presence: without acute cor pulmonale Qualified Code(s): I26.99 - Other pulmonary embolism without acute cor pulmonale (3) Bacteremia due to methicillin susceptible Staphylococcus aureus (MSSA): The patient has infected pacemaker and she also has Sjogren's syndrome has made her immunocompromise because she has been on steroids for long period of time. Currently she is on cefepime and daptomycin. We are going to continue with those antibiotics. The wound culture was positive positive for Pseudomonas as well as MSSA. The patient also has a PICC line. (4) Infection due to gram-negative anaerobic organism: Infectious disease has been consulted. Patient was started on cefepime as well as daptomycin. She has got Pseudomonas and MS as a from the wound culture. (5) Interstitial lung disease: The patient has chronic interstitial lung disease secondary to Sjogren's syndrome. Currently she is on p.o. prednisone which will be continued. She is also on oxygen and BiPAP. (6) Sjogren's syndrome with lung involvement: Seems to be stable. (7) Pulmonary hypertension: I have discussed with the cardiology who did the echo and her pulmonary hypertension has gotten worse currently is 70. Subjective and saturation ofThe patient was seen and examined by myself. Patient is back on BiPAP. This morning she was very short of breath and hypertensive. Currently her blood pressure is still 185/60. The chest x-ray from today is consistent with acute pulmonary edema. The patient was also evaluated by Dr. Rod and she was given IV Lasix as well as Nitropaste. Currently she is lying in the bed on a BiPAP and oxygenating 92 to 94% on 60% FiO2 and a BiPAP. I done a stat ABG on a patient while I was in the room which revealed pH of 7.45, PCO2 of 47, PO2 of 55, bicarb of 32, base excess of 8 and a saturation of 90%. The patient is arousable but she is sleeping all the time. She denies having any chest pain or palpitation. She also denies having shortness of breath but she feels that BiPAP is helping. Review of Systems Review of Systems: Total 12 systems reviewed and they are negative except mentioned as above in history. Physical Exam Physical Exam: Elderly female resting in the bed on a BiPAP and oxygenating around 92 to 94%. HEENT: Pupils are reactive to light and accommodation. Unable to examine the oral cavity because of recent being on a BiPAP with a mask covering her nose and oral cavity. Neck: The neck is supple, no JVD and no cervical no supraclavicular adenopathy. Chest: Bilateral air entry with coarse breathing and fine crackles bilaterally. No wheezing no rhonchi heard. The breathing overall has improved since this morning. Heart: S1-S2 heard. Not able to appreciate murmur or gallop or rub. Tachycardia. Abdomen: The abdomen is soft, nontender, bowel sounds are positive, no mass felt. Neuro: The patient is lethargic but arousable and moves all the extremities. The patient also follows simple commands. There is no neuro deficit at this time. Extremities: No clubbing, no edema, nontender calf muscles. Skin: No rash, no lesions seen. Results & Data Vital Signs (Past 12 Hours) Vital Signs Temp Pulse Pulse Pulse Resp BP BP 09/11/18 16:25 62 185/60 H 09/11/18 15:53 62 23 09/11/18 15:27 62 18 191/75 H 09/11/18 14:06 62 32 H 09/11/18 14:05 62 19 09/11/18 13:30 09/11/18 11:49 198/70 H 09/11/18 11:24 36.9 C 62 18 208/86 H 211/89 H 09/11/18 08:00 55 L 09/11/18 07:26 36.5 C 58 L 20 174/79 H 09/11/18 07:13 55 L 24 09/11/18 07:12 55 L 17 09/11/18 05:49 182/77 H Pulse Ox 09/11/18 16:25 92 09/11/18 15:53 99 09/11/18 15:27 96 09/11/18 14:06 92 09/11/18 14:05 100 09/11/18 13:30 100 09/11/18 11:49 09/11/18 11:24 92 09/11/18 08:00 09/11/18 07:26 95 09/11/18 07:13 93 09/11/18 07:12 93 09/11/18 05:49 Laboratory Results 09/11/18 06:48 09/11/18 06:48 ABG revealed pH of 7.4 5/47/55/32/8/89 %. This was on BiPAP of 10/5 and 60% FiO2 patient has chronic interstitial lung disease Diagnostic Findings SINGLE VIEW CHEST CLINICAL HISTORY: Hypoxia. FINDINGS: An AP, portable, upright chest radiograph is compared to study dated 09/07/2018. Correlation is made with chest CT dated 09/05/2018. The examination is degraded by portable technique and patient rotation. A right PICC line is new from previous. The tip of the catheter projects over the right atrium. The heart is enlarged and there is atherosclerotic calcification of the thoracic aorta. There is pulmonary vascular congestion with interstitial edema. There are low lung volumes. Small pleural effusions are noted. No pneumothorax is seen. The skeletal structures are osteopenic. The bony thorax is grossly intact. IMPRESSION: 1. Cardiomegaly with evidence of congestive failure and interstitial edema. 2. Small pleural effusions. 3. A right PICC line is new from previous. Electronically signed by: Alejandro Tom M.D. 09/11/2018 8:06 AM Medications Administered Current Inpatient Medications Acetaminophen (Tylenol) 650 mg PO Q4H PRN PRN Reason: Pain or Fever Stop: 09/30/18 03:45 Last Admin: 09/10/18 22:01 Dose: 650 mg Documented by: Al Hydrox/Mg Hydrox/Simethicone (Maalox) 30 ml PO Q6H PRN PRN Reason: Dyspepsia Stop: 10/07/18 09:11 Last Admin: 09/07/18 09:39 Dose: 30 ml Documented by: Albuterol (Ventolin Hfa) 2 puffs INH Q6H PRN PRN Reason: Shortness Of Breath Stop: 10/01/18 17:29 Amlodipine Besylate (Norvasc) 10 mg PO DAILY [facility] Stop: 10/05/18 08:59 Last Admin: 09/11/18 09:21 Dose: Not Given Documented by: Artificial Tears (Artificial Tears) 1 drops OP HS [facility] Stop: 09/30/18 20:59 Last Admin: 09/10/18 21:52 Dose: Not Given Documented by: Clotrimazole (Mycelex) 10 mg BUCCAL 5XDQ4H [facility] Stop: 09/19/18 18:59 Last Admin: 09/11/18 14:26 Dose: Not Given Documented by: Dextrose (Dextrose 50%) 25 - 50 ml IV UD PRN; Protocol PRN Reason: Hypoglycemia Protocol Stop: 09/30/18 03:45 Docusate Sodium (Colace) 100 mg PO BID PRN PRN Reason: CONSTIPATION Stop: 09/30/18 06:29 Furosemide (Lasix) 20 mg PO QAM [facility] Stop: 10/09/18 08:59 Last Admin: 09/11/18 09:20 Dose: Not Given Documented by: Glucagon (Glucagen) 1 mg SQ UD PRN; Protocol PRN Reason: Hypoglycemia Protocol Stop: 09/30/18 03:45 Glucose (Glucose 40%) 15 - 30 gm PO UD PRN; Protocol PRN Reason: Hypoglycemia Protocol Stop: 09/30/18 03:45 Glucose (Dex4 Glucose) 4 - 8 tabs PO UD PRN; Protocol PRN Reason: Hypoglycemia Protocol Stop: 09/30/18 03:45 Heparin Sodium (Beef Lung) (Heparin Sod 10 Unit/Ml Flush) 5 ml FLUSH PRN PRN PRN Reason: Flush Stop: 10/09/18 23:03 Hydromorphone HCl (Dilaudid) 0.25 mg IV Q3H PRN PRN Reason: Pain Stop: 09/14/18 03:45 Last Admin: 09/11/18 04:19 Dose: 0.25 mg Documented by: Promethazine HCl 12.5 mg/ (Sodium Chloride) 50.5 mls @ 202 mls/hr IV Q6H PRN PRN Reason: Nausea And Vomiting Stop: 09/30/18 00:49 Last Infusion: 09/07/18 12:07 Dose: Infused Documented by: Heparin Sodium/Dextrose (Heparin Sodium/Dextrose) 25,000 units in 500 mls @ 19 mls/hr IV .Q24H [facility]; Protocol Stop: 10/05/18 15:29 Last Titration: 09/11/18 15:16 Dose: 950 units/hr, 19 mls/hr Documented by: Daptomycin 400 mg/ Syringe 8 mls @ 4 mls/min IV DAILY@1800 [facility]; Protocol Stop: 09/23/18 17:59 Last Admin: 09/10/18 18:58 Dose: 4 mls/min Documented by: Cefepime HCl 2,000 mg/ Syringe 20 mls @ 5 mls/min IV Q8H [facility]; Protocol Stop: 09/21/18 07:59 Last Admin: 09/11/18 16:53 Dose: 5 mls/min Documented by: Enalaprilat 1.25 mg/ Dextrose 26 mls @ 100 mls/hr IV Q6H [facility] Stop: 10/11/18 16:59 Insulin Aspart (Novolog Flexpen) 0 units SC ACHS [facility] Stop: 10/09/18 16:29 Last Admin: 09/11/18 11:43 Dose: Not Given Documented by: Ipratropium [place] (Atrovent 0.02% 0.5mg/2.5ml) 0.5 mg INH Q6R [facility] Stop: 10/03/18 13:59 Last Admin: 09/11/18 14:05 Dose: 0.5 mg Documented by: Ipratropium [place] (Atrovent 0.02% 0.5mg/2.5ml) 0.5 mg INH Q2H PRN PRN Reason: Shortness Of Breath Or Wheezing Stop: 10/11/18 05:59 Levalbuterol HCl (Xopenex 0.63 Mg/3 Ml Neb) 0.63 mg NEB Q6R [facility] Stop: 10/03/18 13:59 Last Admin: 09/11/18 14:05 Dose: 0.63 mg Documented by: Levalbuterol HCl (Xopenex 1.25mg/0.5ml Neb) 1.25 mg INH Q2H PRN PRN Reason: Shortness Of Breath Or Wheezing Stop: 10/11/18 05:59 Levothyroxine Sodium (Synthroid) 50 mcg PO DAILYBB [facility] Stop: 09/30/18 06:29 Last Admin: 09/11/18 05:36 Dose: 50 mcg Documented by: Lisinopril (Zestril) 20 mg PO QAM [facility] Stop: 10/12/18 08:59 Miscellaneous (Carbohydrates For Hypoglycemia) 15 - 30 gm PO UD PRN PRN Reason: Hypoglycemia Treatment Stop: 09/30/18 03:45 Miscellaneous Information (Consult Glycemic Management Pharmacy) 1 ea N/A UD PRN PRN Reason: Consult Stop: 10/02/18 07:11 Multivitamins/Minerals (Multivitamin W/ Minerals Tab) 1 tab PO DAILY [facility]; Protocol Stop: 09/30/18 08:59 Last Admin: 09/11/18 09:20 Dose: Not Given Documented by: Nitroglycerin (Nitro-Bid 2%) 0.5 inch EXT Q6H [facility] Stop: 10/11/18 10:29 Last Admin: 09/11/18 11:09 Dose: 0.5 inch Documented by: Dulera 100mcg/5mcg~ Non-Formulary Patient's Own Med 2 ea PO BID [facility] Stop: 10/09/18 20:59 Last Admin: 09/11/18 10:34 Dose: Not Given Documented by: Oxycodone/Acetaminophen (Percocet 5mg/325mg) 1 - 2 tab PO Q6H PRN PRN Reason: Moderate-Severe Pain Stop: 09/15/18 14:04 Last Admin: 09/11/18 00:31 Dose: 2 tab Documented by: Pantoprazole Sodium (Protonix) 40 mg PO DAILY [facility]; Protocol Stop: 09/30/18 08:59 Last Admin: 09/11/18 09:22 Dose: Not Given Documented by: Prednisone (Prednisone) 10 mg PO QAM [facility] Stop: 10/03/18 08:59 Last Admin: 09/03/18 08:48 Dose: 10 mg Documented by: Prednisone (Prednisone) 40 mg PO DAILY [facility] Stop: 10/10/18 10:29 Last Admin: 09/11/18 09:22 Dose: Not Given Documented by: Rosuvastatin Calcium (Crestor) 10 mg PO DAILY [facility] Stop: 09/30/18 08:59 Last Admin: 09/11/18 09:20 Dose: Not Given Documented by: Fluticasone/Salmeterol (Advair Diskus 100/50) 1 puffs INH BID [facility] Stop: 10/03/18 13:19 Last Admin: 09/11/18 09:20 Dose: Not Given Documented by: Sodium Chloride (Sodium Chloride) 1 gm PO BID [facility] Stop: 10/10/18 09:29 Last Admin: 09/11/18 09:22 Dose: Not Given Documented by: Tramadol HCl (Ultram) 25 mg PO Q4H PRN PRN Reason: Pain Stop: 09/30/18 03:45 PG Care Time/CCT Total # of Minutes Spent Total Time Spent with Patient: Total time spent is greater than 50% in coordination of care (as documented) at patient's floor/unit and/or counseling patient:
[2018-09-11] MEDS: ENALAPRILAT 1.25 MG in DEXTROSE 5% 25 ML IV SCH ×3 (19:35→23:08)
[2018-09-11] MEDS: DAPTOmycin 400 MG in SYRINGE 0 ML IV SCH (19:37)
[2018-09-11] MEDS: ARTIFICIAL TEARS OP SCH (21:00)
[2018-09-11 21:02] LABS: BUN Creatinine Ratio 34.6 (10-20); Calcium 8.6 mg/dl (8.5-10.1); Creatinine Clr Calc Pharmacy 64.3 ml/min; Est GFR (African American) 89.5; Est GFR (Non-African American) 77.2; Magnesium 1.9 mg/dl (1.8-2.4); Phosphorus 2.9 mg/dl (2.5-4.9); Potassium 3.9 mmol/L (3.5-5.1)
[2018-09-11] MEDS: Heparin Adult STANDARD Wt-Based Dextrose 5% 25,000 units/500 mL IV SCH (22:47)
[2018-09-12] MEDS: CEFEPIME 2,000 MG in SYRINGE 7.5 ML IV SCH ×4 (00:21→23:15)
[2018-09-12] MEDS: LEVALBUTEROL HCL 0.63 MG/3 ML NEB NEB SCH ×4 (01:29→19:50)
[2018-09-12] MEDS: IPRATROPIUM BROMIDE NEB SOLN 0.02% 2.5 ML VIAL INH SCH ×4 (01:29→19:50)
[2018-09-12] MEDS ORDERED: MoRPHine SULFATE 2 MG/ML CARP IV STA ×3 (01:38→08:10)
[2018-09-12] MEDS ORDERED: MoRPHine SULFATE 2 MG/ML CARP ONE ×2 (01:41→08:15)
[2018-09-12] MEDS ORDERED: FUROSEMIDE 20 MG in SYRINGE 0 ML IV STA (01:52)
[2018-09-12] MEDS ORDERED: FUROSEMIDE 20 MG in SYRINGE 0 ML IV ONE (03:20)
[2018-09-12] MEDS: NITROGLYCERIN 2% OINTMENT 30GM TUBE EXT SCH ×4 (03:47→15:33)
[2018-09-12] MEDS: ENALAPRILAT 1.25 MG in DEXTROSE 5% 25 ML IV SCH ×3 (04:22→16:34)
[2018-09-12] MEDS: LEVOTHYROXINE SODIUM 50 MCG TABLET PO SCH (06:35)
[2018-09-12 06:54] LABS: Hematocrit (blood only) 30.7 % (37-47); Hemoglobin 10.5 g/dL (12.0-16.0); Mean Corpuscular Hgb Conc 34.2 g/dL (32-36); Mean Corpuscular Volume 92.2 fL (80-100); Mean Platelet Volume 10.5 fL (7.4-10.4); Platelet Count 227 K/uL (130-400); RDW Coefficient of Variation 13.1 % (11.5-14.5); RDW Standard Deviation 44.3 fL (36.4-46.3); Red Blood Count 3.33 M/uL (4.2-5.4); White Blood Count 24.87 K/uL (4.8-10.8)
[2018-09-12 07:23] LABS: Partial Thromboplastin Ratio 2.1
[2018-09-12 07:24] LABS: Partial Thromboplastin Time 55.8 Seconds (21.0-31.0)
[2018-09-12 07:25] LABS: Basophils # (auto) 0.01 K/uL (0-0.2); Eosinophils # (auto) 0.01 K/uL (0-0.5); Immature Granulocytes # (auto) 0.08 K/uL (0.00-0.02); Immature Granulocytes % (auto) 0.3 %; Lymphocytes # (auto) 0.26 K/uL (1.2-3.4); Monocytes # (auto) 0.72 K/uL (0.11-0.59); Monocytes % (auto) 2.9 %; Neutrophils # (auto) 23.79 K/uL (1.4-6.5); Neutrophils % (auto) 95.8 %
[2018-09-12 07:29] LABS: BUN Creatinine Ratio 33.4 (10-20); Calcium 8.5 mg/dl (8.5-10.1); Creatinine Clr Calc Pharmacy 56.7 ml/min; Est GFR (African American) 80.1; Est GFR (Non-African American) 69.1; Potassium 3.6 mmol/L (3.5-5.1)
[2018-09-12] MEDS: CLOTRIMAZOLE 10 MG TROCHE BUCCAL SCH ×5 (07:32→22:24)
--- NOTE | 2018-09-12 08:42 | Hospitalist Progress Note ---
Date of Service Addendum September 11, 2018 17:16 The patient was seen and examined again at around 5:16 PM She has not been doing well since this morning with the increasing shortness of breath, lethargy and very high blood pressure of systolic more than 190 Chest x-ray showed increasing pulmonary edema She received a total of 80 mg IV Lasix so far and 5 mils of hydralazine IV for control of blood pressure She was evaluated by industry segment specialist and obgyn nurse this morning The daughter Norah was updated over phone and today she will need to be called the condition deteriorates overnight At this moment she will be for full code At 5:18PM She has been talking and expressed that feels a little bit better Her ABGs better without any significant CO2 retention Her blood pressure remains elevated around systolic 180 Intravenous Vasotec has been ordered for blood pressure control We will get repeat PRP and electrolytes at around 8 PM Will talk to the daughter tomorrow for further direction of care Dr Parveen Long 09/12: 3:30 AM Patient's condition deteriorated further Has been on BiPAP with 100% FiO2 and barely maintaining saturation Blood pressure remains elevated systolic more than 180 Patient remains anxious and distressed Discussed with the daughter in the room with the patient Discussed with obgyn nurse and industry segment specialist Patient was made DNR Transferred to ICU for better control of blood pressure with Juliana long September 12, 2018 Assessment & Plan (1) Respiratory failure: Acute on Chronic Hypoxic Respiratory Failure Interstitial lung disease History of Sjogren's syndrome with lung involvement On chronic prednisone [address] chest ordered: Positive for right lower lobe pulmonary emboli Appreciate pulmonary input and recommendation IV Lasix as needed and BiPAP for shortness of breath Has been on intravenous Solu-Medrol and nebulized bronchodilator-changed to oral as of 09/09 We will change his steroid orally 50 mg daily and taper to continue 10 mg until she sees her natural foods clerk as an outpatient Condition got worse since last night with increasing shortness of breath and crackles in the lungs with decreasing saturation Chest x-ray showed more congestion and requiring 100% FiO2 to maintain saturation Administered 40 of Lasix IV at around 930 and repeat another dose now at around 2 PM Discussed with industry segment specialist and obgyn nurse Condition got worse this morning 09/12 Was transferred to ICU for Cardene drip and the patient was made DNR Daughter at the bedside (2) Sepsis: Secondary to pacemaker site infection, bacteremia 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 Immunocompromised patient with Sjogren's syndrome on chronic steroid Rx S/Post removal of pacemaker on 09/01/2018 Wound culture: Positive for Pseudomonas and MSSA Blood cultures: Positive for MSSA Continue cefepime IV Appreciate ID input and recommendation -Will DC his IV cefepime and replaced with intravenous daptomycin PICC line has been placed and will continue daptomycin for 2 weeks White count has been increased Cefepime has been restarted and daptomycin continued We will continue current medications Hyponatremia Sodium level went down to 125 Will advise less fluid intake Sodium tablets, 1 g twice a day Sodium level went up to 126 Sodium remains at 125 this morning Pulmonary embolism Has been on intravenous heparin Will likely change to Eliquis on discharge-we will discuss with natural foods clerk Will be discharged tomorrow on Eliquis/Xarelto Not yet ready to start oral medication Hypertension Amlodipine increased to 10 mg p.o. daily for better BP control Lisinopril 5 mg p.o. daily added Blood pressure noted to be very high since this morning Did not take her usual oral medications Nitropaste applied and will give 5 mg hydralazine IV Blood pressure is not controlled; will start Cardene drip and transfer the patient to ICU for better control of blood pressure DM2 ISS Blood sugar has been noted to be high secondary to nasal steroid SSI-parameters have been changed DVT prophylaxis. On heparin drip Full code Disposition Pending DVT prophylaxis. Lovenox subcu Full code Discussed with the patient and the daughter Prognosis remains very poor Subjective 09/08 The patient was seen and examined in telemetry unit Complaints of weakness and shortness of breath on exertion Denies any symptoms at rest No fever and/or chills 09/09 The patient was seen and examined in telemetry unit He remains stable Denies any significant chest pain no palpitation Out of bed in a chair has been getting physical therapy 09/10 The patient was seen and examined in the telemetry unit She denies any significant symptoms Remains to be mild shortness of breath at rest She has been waiting to go to [facility] 09/11 The patient was seen and examined today in telemetry unit in presence of her youngest daughter She has been noted to have high blood pressure of systolic more than 200 with increasing shortness of breath since this morning She has been requiring BiPAP with 100% FiO2 to maintain saturation Denies any significant pain 09/12 Condition got worse the patient was transferred to ICU Made DNR Morphine as needed for pain control Review of Systems Review of Systems: All systems reviewed and are unremarkable except as noted below Constitutional: + malaise; no fever and no chills Respiratory: + dyspnea Neurologic: Communicating normally Physical Exam Physical Exam: Very short of breath at rest and is on BiPAP with 100% FiO2 Constitutional: + acute distress (Secondary to increasing shortness of breath), + ill appearing, + thin and comfortable Eyes: Closed ENMT: external ear and nose normal, oropharynx normal Mallampati Class: II Neck: trachea midline, no thyromegaly normal visual inspection; neck nontender Respiratory: + respiratory distress, + labored breathing, + retractions and + uses accessory muscles Auscultation: + diminished lung sounds and + crackles (Pronounced bilaterally at the bases) Cardiovascular: Rate/Rhythm: regular rate and regular rhythm Heart Sounds: normal S1 and normal S2 Vessels: normal peripheral pulses Extremities: no edema Chest (Breasts): Chest: + pacemaker (Left infraclavicular pacemaker pocket with ongoing mild erythema, and drainage from incision site, unchanged compared to yesterday. She states that it was tender to palpation yesterday and this has improved.) Gastrointestinal (Abdomen): Inspection/Auscultation: abdomen normal to inspection and normal bowel sounds Percussion/Palpation: abdomen soft Musculoskeletal: no cyanosis or clubbing, extremities motor strength 5/5 Spine: thoracic spine normal to inspection and lumbar spine normal to inspection; no pain with cervical ROM and no cervical spinal tenderness Skin: no rashes, warm and dry normal turgor and + wound (Pacemaker pocket with erythema drainage); no rashes Neurologic: awake Motor/Sensory: no sensory deficit Response to vocal commands. Generally very weak and Psychiatric: A+Ox3, euthymic affect Orientation: alert, oriented x 3 and cooperative Lymphatic: no cervical or axillary lymphadenopathy no inguinal lymphadenopathy Results & Data Vital Signs (Past 12 Hours) Vital Signs Temp Pulse Pulse Pulse Resp BP Pulse Ox 09/12/18 07:21 36.9 C 62 25 H 181/69 H 98 09/12/18 07:15 61 62 27 H 92 09/12/18 05:04 157/63 H 09/12/18 04:21 36.9 C 61 20 181/65 H 98 09/12/18 02:30 66 09/12/18 01:47 65 173/71 H 89 L 09/12/18 01:31 62 62 34 H 89 L 09/12/18 00:16 37.4 C 56 L 16 165/64 H 97 09/11/18 21:42 36.0 C L 64 24 160/65 H 96 09/11/18 21:00 68 32 H 92 Laboratory Results Short CBC 09/12/18 Range/Units 06:33 WBC 24.87 H (4.8-10.8) K/uL Hgb 10.5 L (12.0-16.0) g/dL Hct 30.7 L (37-47) % Plt Count 227 (130-400) K/uL BMP 09/11/18 09/12/18 20:26 06:33 Sodium 124 L 125 L Potassium 3.9 D 3.6 Chloride 84 L 83 L Carbon Dioxide 32 32 BUN 25 H 27 H Creatinine 0.73 0.80 Glucose 144 H 141 H Calcium 8.6 8.5 Medications Administered Current Inpatient Medications Acetaminophen (Tylenol) 650 mg PO Q4H PRN PRN Reason: Pain or Fever Stop: 09/30/18 03:45 Last Admin: 09/10/18 22:01 Dose: 650 mg Documented by: Al Hydrox/Mg Hydrox/Simethicone (Maalox) 30 ml PO Q6H PRN PRN Reason: Dyspepsia Stop: 10/07/18 09:11 Last Admin: 09/07/18 09:39 Dose: 30 ml Documented by: Albuterol (Ventolin Hfa) 2 puffs INH Q6H PRN PRN Reason: Shortness Of Breath Stop: 10/01/18 17:29 Amlodipine Besylate (Norvasc) 10 mg PO DAILY [facility] Stop: 10/05/18 08:59 Last Admin: 09/11/18 09:21 Dose: Not Given Documented by: Artificial Tears (Artificial Tears) 1 drops OP HS [facility] Stop: 09/30/18 20:59 Last Admin: 09/11/18 21:00 Dose: Not Given Documented by: Clotrimazole (Mycelex) 10 mg BUCCAL 5XDQ4H [facility] Stop: 09/19/18 18:59 Last Admin: 09/12/18 07:32 Dose: Not Given Documented by: Dextrose (Dextrose 50%) 25 - 50 ml IV UD PRN; Protocol PRN Reason: Hypoglycemia Protocol Stop: 09/30/18 03:45 Docusate Sodium (Colace) 100 mg PO BID PRN PRN Reason: CONSTIPATION Stop: 09/30/18 06:29 Furosemide (Lasix) 20 mg PO QAM [facility] Stop: 10/09/18 08:59 Last Admin: 09/11/18 09:20 Dose: Not Given Documented by: Glucagon (Glucagen) 1 mg SQ UD PRN; Protocol PRN Reason: Hypoglycemia Protocol Stop: 09/30/18 03:45 Glucose (Glucose 40%) 15 - 30 gm PO UD PRN; Protocol PRN Reason: Hypoglycemia Protocol Stop: 09/30/18 03:45 Glucose (Dex4 Glucose) 4 - 8 tabs PO UD PRN; Protocol PRN Reason: Hypoglycemia Protocol Stop: 09/30/18 03:45 Heparin Sodium (Beef Lung) (Heparin Sod 10 Unit/Ml Flush) 5 ml FLUSH PRN PRN PRN Reason: Flush Stop: 10/09/18 23:03 Hydromorphone HCl (Dilaudid) 0.25 mg IV Q3H PRN PRN Reason: Pain Stop: 09/14/18 03:45 Last Admin: 09/11/18 04:19 Dose: 0.25 mg Documented by: Promethazine HCl 12.5 mg/ (Sodium Chloride) 50.5 mls @ 202 mls/hr IV Q6H PRN PRN Reason: Nausea And Vomiting Stop: 09/30/18 00:49 Last Infusion: 09/07/18 12:07 Dose: Infused Documented by: Heparin Sodium/Dextrose (Heparin Sodium/Dextrose) 25,000 units in 500 mls @ 19 mls/hr IV .Q24H [facility]; Protocol Stop: 10/05/18 15:29 Last Titration: 09/12/18 07:00 Dose: 950 units/hr, 19 mls/hr Documented by: Daptomycin 400 mg/ Syringe 8 mls @ 4 mls/min IV DAILY@1800 [facility]; Protocol Stop: 09/23/18 17:59 Last Admin: 09/11/18 19:37 Dose: 4 mls/min Documented by: Cefepime HCl 2,000 mg/ Syringe 20 mls @ 5 mls/min IV Q8H [facility]; Protocol Stop: 09/21/18 07:59 Last Admin: 09/12/18 07:33 Dose: 5 mls/min Documented by: Enalaprilat 1.25 mg/ Dextrose 26 mls @ 100 mls/hr IV Q6H [facility] Stop: 10/11/18 16:59 Last Infusion: 09/12/18 04:45 Dose: Infused Documented by: Insulin Aspart (Novolog Flexpen) 0 units SC ACHS [facility] Stop: 10/09/18 16:29 Last Admin: 09/11/18 20:47 Dose: 1 units Documented by: Insulin Human NPH (Novolin N Nph) 15 units SC DAILY ONE; Protocol Stop: 09/12/18 09:01 Ipratropium Hope (Atrovent 0.02% 0.5mg/2.5ml) 0.5 mg INH Q6R [facility] Stop: 10/03/18 13:59 Last Admin: 09/12/18 07:15 Dose: 0.5 mg Documented by: Ipratropium Hope (Atrovent 0.02% 0.5mg/2.5ml) 0.5 mg INH Q2H PRN PRN Reason: Shortness Of Breath Or Wheezing Stop: 10/11/18 05:59 Levalbuterol HCl (Xopenex 0.63 Mg/3 Ml Neb) 0.63 mg NEB Q6R [facility] Stop: 10/03/18 13:59 Last Admin: 09/12/18 07:15 Dose: 0.63 mg Documented by: Levalbuterol HCl (Xopenex 1.25mg/0.5ml Neb) 1.25 mg INH Q2H PRN PRN Reason: Shortness Of Breath Or Wheezing Stop: 10/11/18 05:59 Levothyroxine Sodium (Synthroid) 50 mcg PO DAILYBB [facility] Stop: 09/30/18 06:29 Last Admin: 09/12/18 06:35 Dose: Not Given Documented by: Lisinopril (Zestril) 20 mg PO QAM [facility] Stop: 10/12/18 08:59 Miscellaneous (Carbohydrates For Hypoglycemia) 15 - 30 gm PO UD PRN PRN Reason: Hypoglycemia Treatment Stop: 09/30/18 03:45 Miscellaneous Information (Consult Glycemic Management Pharmacy) 1 ea N/A UD PRN PRN Reason: Consult Stop: 10/02/18 07:11 Multivitamins/Minerals (Multivitamin W/ Minerals Tab) 1 tab PO DAILY [facility]; Protocol Stop: 09/30/18 08:59 Last Admin: 09/11/18 09:20 Dose: Not Given Documented by: Nitroglycerin (Nitro-Bid 2%) 1 inch EXT Q6H [facility] Stop: 10/12/18 03:59 Last Admin: 09/12/18 04:17 Dose: Not Given Documented by: Dulera 100mcg/5mcg~ Non-Formulary Patient's Own Med 2 ea PO BID [facility] Stop: 10/09/18 20:59 Last Admin: 09/11/18 21:01 Dose: Not Given Documented by: Oxycodone/Acetaminophen (Percocet 5mg/325mg) 1 - 2 tab PO Q6H PRN PRN Reason: Moderate-Severe Pain Stop: 09/15/18 14:04 Last Admin: 09/11/18 00:31 Dose: 2 tab Documented by: Pantoprazole Sodium (Protonix) 40 mg PO DAILY [facility]; Protocol Stop: 09/30/18 08:59 Last Admin: 09/11/18 09:22 Dose: Not Given Documented by: Prednisone (Prednisone) 10 mg PO QAM [facility] Stop: 10/03/18 08:59 Last Admin: 09/03/18 08:48 Dose: 10 mg Documented by: Prednisone (Prednisone) 40 mg PO DAILY [facility] Stop: 10/10/18 10:29 Last Admin: 09/11/18 09:22 Dose: Not Given Documented by: Rosuvastatin Calcium (Crestor) 10 mg PO DAILY [facility] Stop: 09/30/18 08:59 Last Admin: 09/11/18 09:20 Dose: Not Given Documented by: Fluticasone/Salmeterol (Advair Diskus 100/50) 1 puffs INH BID [facility] Stop: 10/03/18 13:19 Last Admin: 09/11/18 21:00 Dose: Not Given Documented by: Tramadol HCl (Ultram) 25 mg PO Q4H PRN PRN Reason: Pain Stop: 09/30/18 03:45
--- NOTE | 2018-09-12 08:46 | Critical Care Progress Note ---
Date of Service September 12, 2018 Assessment & Plan (1) Admitted to intensive care unit: 83 year old female was transferred to ICU because of her worsening pulmonary edema and also is hypertensive. Neuro: The patient remains on a BiPAP. She is getting more lethargic. The daughter is by the bedside. We had an extensive discussion with the daughter about the CODE STATUS and she has discussed with her mom and at this stage they have decided that patient need to be DNR no CPR no shock no intubation no ventilator but continue with the BiPAP and continue other treatment. She can be also transferred to the ICU which we have done it. Cardiac: The patient is still hypertensive. I have discussed with Dr. Verma and we are going to start her on Cardene drip very cautiously because we do not want her heart rate to go down below 50 because she was on a pacemaker before and that was infected. At this time she does not have any pacemaker. We will try to control her blood pressure at least systolic around 160. If she becomes bradycardic then we will stop the Cardene and will go with the hydralazine IV. Also pulmonary edema and I have reviewed her chest x-ray which looks worse than yesterday and I am going to give her 80 mg of IV Lasix. Monitor her output. Respiratory: The patient is in acute on chronic respiratory failure secondary to multiple reasons including her own baseline disease, pulmonary fibrosis and Sjogren's syndrome. Also she is in pulmonary edema secondary to her persistent hypertension. Currently she remains on a BiPAP. The patient herself and the daughter have decided for patient to be DNR and continue with other treatment including BiPAP and all other medications. The patient had the blood gas done yesterday which revealed pH of 7.4 5/47/55/32/8 0.0/89.0%. GI: The patient is not able to eat at this time because of increasing shortness of breath as well as being on a BiPAP. But otherwise she does not have any other issues. ID: The patient is followed by infectious disease. She was diagnosed with Pseudomonas and methicillin sensitive staph from the wound culture and she has been on cefepime as well as daptomycin which will be continued as per the recommendation of the infectious disease. Renal: The patient is not making much urine. We are going to give her 80 mg of IV Lasix now. Also her BUN/creatinine is 27/0.80. We will monitor her in an output very closely. The patient is also hyponatremic. Her sodium is around 125 and that could be related to her ongoing current medical condition. Endo: Her blood sugar is 147. Currently she is on ICU glycemic control. We will continue with insulin as recommended and monitor her very closely. Hematology: Her white count has gone up to 24.87. Her H&H is stable 10.5/30.7. Her platelets also 227. The patient remains on IV heparin for her DVTs and her PTT is 55.8. We will continue with that. I had a long discussion with the family the daughter by the bedside about the CODE STATUS and explained to them everything about the code and both the mother and the daughter have decided to be DNR/DNI/continue other treatment. No CPR, no shock, no intubation, no ventilator. I have also discussed with Dr. Mckinnon and transfer the patient to ICU and I have also discussed with Dr. Verma the dance professor about the plan of care including IV Cardene drip. I have spent more than 40 minutes of my critical care time. (2) Respiratory failure: (3) Pulmonary embolus: (4) Bacteremia due to methicillin susceptible Staphylococcus aureus (MSSA): (5) Infection due to gram-negative anaerobic organism: (6) Interstitial lung disease: (7) Mobitz type 2 second degree atrioventricular block: (8) Infection of pacemaker pocket: (9) Sepsis: (10) Sjogren's syndrome with lung involvement: (11) Pulmonary hypertension: (12) Pulmonary edema: (13) Hypoxia: Subjective The patient was seen and examined by myself. The patient has history of Sjogren's disease and related to that pulmonary fibrosis. She was admitted with sepsis secondary to pocket of pacemaker infected and currently she is also seen by ID and she is on a broad-spectrum antibiotics. Her blood pressure is not controlled and she is getting filled up with the fluids she is in acute pulmonary edema and she is on a BiPAP and an oxygen requirement has gone up. 2 days ago she was on 3 L nasal cannula and she was oxygenating well but now she is on 100% FiO2 and she is oxygenating around 9192 and a BiPAP 16/8. Family the daughter was by the bedside we had a long discussion and daughter had a discussion with the mother and they have decided that they would not like to do CPR or cardiac shock all intubation or ventilator but continue with the BiPAP. Currently because of her moderate complexity and requiring BiPAP she is not oxygenating and she also noted needs a Cardene drip because of her persistent hypotension we have decided to transfer this patient to the ICU. I have discussed with Dr. Mckinnon who is the primary care physician and he has agreed for the patient to be transferred to ICU. Review of Systems Review of Systems: Review of system is unable to obtain secondary to her current medical condition and mental status. She is very short of breath she is on a BiPAP and not able to answer us questions. Physical Exam Physical Exam: Elderly female resting in the bed on a BiPAP and oxygenating around 91 % on BiPAP of 1608 and 100% FiO2. She has been short of breath with any kind of activities or exertion. The patient is also hypertensive blood pressure is 185/67. HEENT: Pupils are reactive to light and accommodation. Unable to examine the oral cavity because of recent being on a BiPAP with a mask covering her nose and oral cavity. Neck: The neck is supple, no JVD and no cervical no supraclavicular adenopathy. Chest: Bilateral air entry with coarse breathing and fine crackles bilaterally. No wheezing no rhonchi heard. The breathing overall has improved since this morning. Heart: S1-S2 heard. Not able to appreciate murmur or gallop or rub. Bradycardia. Abdomen: The abdomen is soft, nontender, bowel sounds are positive, no mass felt. Neuro: The patient is lethargic but arousable and moves all the extremities. The patient also follows simple commands. There is no neuro deficit at this time. Extremities: No clubbing, bilateral edema, nontender calf muscles. Skin: No rash, no lesions seen. Results & Data Vital Signs (Past 12 Hours) Vital Signs Temp Pulse Pulse Pulse Resp BP Pulse Ox 09/12/18 07:21 36.9 C 62 25 H 181/69 H 98 09/12/18 07:15 61 62 27 H 92 09/12/18 05:04 157/63 H 09/12/18 04:21 36.9 C 61 20 181/65 H 98 09/12/18 02:30 66 09/12/18 01:47 65 173/71 H 89 L 09/12/18 01:31 62 62 34 H 89 L 09/12/18 00:16 37.4 C 56 L 16 165/64 H 97 09/11/18 21:42 36.0 C L 64 24 160/65 H 96 09/11/18 21:00 68 32 H 92 Laboratory Results 09/12/18 06:33 09/12/18 06:33 Diagnostic Findings CXR did reveal worsening bilateral pulmonary edema. Medications Administered Current Inpatient Medications Acetaminophen (Tylenol) 650 mg PO Q4H PRN PRN Reason: Pain or Fever Stop: 09/30/18 03:45 Last Admin: 09/10/18 22:01 Dose: 650 mg Documented by: Al Hydrox/Mg Hydrox/Simethicone (Maalox) 30 ml PO Q6H PRN PRN Reason: Dyspepsia Stop: 10/07/18 09:11 Last Admin: 09/07/18 09:39 Dose: 30 ml Documented by: Albuterol (Ventolin Hfa) 2 puffs INH Q6H PRN PRN Reason: Shortness Of Breath Stop: 10/01/18 17:29 Amlodipine Besylate (Norvasc) 10 mg PO DAILY [facility] Stop: 10/05/18 08:59 Last Admin: 09/11/18 09:21 Dose: Not Given Documented by: Artificial Tears (Artificial Tears) 1 drops OP HS [facility] Stop: 09/30/18 20:59 Last Admin: 09/11/18 21:00 Dose: Not Given Documented by: Clotrimazole (Mycelex) 10 mg BUCCAL 5XDQ4H [facility] Stop: 09/19/18 18:59 Last Admin: 09/12/18 07:32 Dose: Not Given Documented by: Dextrose (Dextrose 50%) 25 - 50 ml IV UD PRN; Protocol PRN Reason: Hypoglycemia Protocol Stop: 09/30/18 03:45 Docusate Sodium (Colace) 100 mg PO BID PRN PRN Reason: CONSTIPATION Stop: 09/30/18 06:29 Furosemide (Lasix) 20 mg PO QAM [facility] Stop: 10/09/18 08:59 Last Admin: 09/11/18 09:20 Dose: Not Given Documented by: Glucagon (Glucagen) 1 mg SQ UD PRN; Protocol PRN Reason: Hypoglycemia Protocol Stop: 09/30/18 03:45 Glucose (Glucose 40%) 15 - 30 gm PO UD PRN; Protocol PRN Reason: Hypoglycemia Protocol Stop: 09/30/18 03:45 Glucose (Dex4 Glucose) 4 - 8 tabs PO UD PRN; Protocol PRN Reason: Hypoglycemia Protocol Stop: 09/30/18 03:45 Heparin Sodium (Beef Lung) (Heparin Sod 10 Unit/Ml Flush) 5 ml FLUSH PRN PRN PRN Reason: Flush Stop: 10/09/18 23:03 Hydromorphone HCl (Dilaudid) 0.25 mg IV Q3H PRN PRN Reason: Pain Stop: 09/14/18 03:45 Last Admin: 09/11/18 04:19 Dose: 0.25 mg Documented by: Promethazine HCl 12.5 mg/ (Sodium Chloride) 50.5 mls @ 202 mls/hr IV Q6H PRN PRN Reason: Nausea And Vomiting Stop: 09/30/18 00:49 Last Infusion: 09/07/18 12:07 Dose: Infused Documented by: Heparin Sodium/Dextrose (Heparin Sodium/Dextrose) 25,000 units in 500 mls @ 19 mls/hr IV .Q24H [facility]DIA; Protocol Stop: 10/05/18 15:29 Last Titration: 09/12/18 08:42 Dose: 950 units/hr, 19 mls/hr Documented by: Daptomycin 400 mg/ Syringe 8 mls @ 4 mls/min IV DAILY@1800 [facility]; Protocol Stop: 09/23/18 17:59 Last Admin: 09/11/18 19:37 Dose: 4 mls/min Documented by: Cefepime HCl 2,000 mg/ Syringe 20 mls @ 5 mls/min IV Q8H [facility]DIA; Protocol Stop: 09/21/18 07:59 Last Admin: 09/12/18 07:33 Dose: 5 mls/min Documented by: Enalaprilat 1.25 mg/ Dextrose 26 mls @ 100 mls/hr IV Q6H [facility] Stop: 10/11/18 16:59 Last Infusion: 09/12/18 04:45 Dose: Infused Documented by: Nicardipine HCl 25 mg/ Sodium (Chloride) 250 mls @ 0 mls/hr IV .Q0M [facility]DIA; Protocol Stop: 10/12/18 08:59 Furosemide 80 mg/ Syringe 8 mls @ 4 mls/min IV ONE ONE Stop: 09/12/18 08:50 Insulin Aspart (Novolog Flexpen) 0 units SC ACHS [facility] Stop: 10/09/18 16:29 Last Admin: 09/11/18 20:47 Dose: 1 units Documented by: Insulin Human NPH (Novolin N Nph) 15 units SC DAILY ONE; Protocol Stop: 09/12/18 09:01 Ipratropium [place] (Atrovent 0.02% 0.5mg/2.5ml) 0.5 mg INH Q6R [facility] Stop: 10/03/18 13:59 Last Admin: 09/12/18 07:15 Dose: 0.5 mg Documented by: Ipratropium [place] (Atrovent 0.02% 0.5mg/2.5ml) 0.5 mg INH Q2H PRN PRN Reason: Shortness Of Breath Or Wheezing Stop: 10/11/18 05:59 Levalbuterol HCl (Xopenex 0.63 Mg/3 Ml Neb) 0.63 mg NEB Q6R [facility] Stop: 10/03/18 13:59 Last Admin: 09/12/18 07:15 Dose: 0.63 mg Documented by: Levalbuterol HCl (Xopenex 1.25mg/0.5ml Neb) 1.25 mg INH Q2H PRN PRN Reason: Shortness Of Breath Or Wheezing Stop: 10/11/18 05:59 Levothyroxine Sodium (Synthroid) 50 mcg PO DAILYBB [facility] Stop: 09/30/18 06:29 Last Admin: 09/12/18 06:35 Dose: Not Given Documented by: Lisinopril (Zestril) 20 mg PO QAM [facility] Stop: 10/12/18 08:59 Miscellaneous (Carbohydrates For Hypoglycemia) 15 - 30 gm PO UD PRN PRN Reason: Hypoglycemia Treatment Stop: 09/30/18 03:45 Miscellaneous Information (Consult Glycemic Management Pharmacy) 1 ea N/A UD PRN PRN Reason: Consult Stop: 10/02/18 07:11 Multivitamins/Minerals (Multivitamin W/ Minerals Tab) 1 tab PO DAILY [facility]; Protocol Stop: 09/30/18 08:59 Last Admin: 09/11/18 09:20 Dose: Not Given Documented by: Nitroglycerin (Nitro-Bid 2%) 1 inch EXT Q6H [facility] Stop: 10/12/18 03:59 Last Admin: 09/12/18 04:17 Dose: Not Given Documented by: Dulera 100mcg/5mcg~ Non-Formulary Patient's Own Med 2 ea PO BID [facility] Stop: 10/09/18 20:59 Last Admin: 09/11/18 21:01 Dose: Not Given Documented by: Oxycodone/Acetaminophen (Percocet 5mg/325mg) 1 - 2 tab PO Q6H PRN PRN Reason: Moderate-Severe Pain Stop: 09/15/18 14:04 Last Admin: 09/11/18 00:31 Dose: 2 tab Documented by: Pantoprazole Sodium (Protonix) 40 mg PO DAILY [facility]; Protocol Stop: 09/30/18 08:59 Last Admin: 09/11/18 09:22 Dose: Not Given Documented by: Prednisone (Prednisone) 10 mg PO QAM [facility] Stop: 10/03/18 08:59 Last Admin: 09/03/18 08:48 Dose: 10 mg Documented by: Prednisone (Prednisone) 40 mg PO DAILY [facility] Stop: 10/10/18 10:29 Last Admin: 09/11/18 09:22 Dose: Not Given Documented by: Rosuvastatin Calcium (Crestor) 10 mg PO DAILY [facility] Stop: 09/30/18 08:59 Last Admin: 09/11/18 09:20 Dose: Not Given Documented by: Fluticasone/Salmeterol (Advair Diskus 100/50) 1 puffs INH BID [facility] Stop: 10/03/18 13:19 Last Admin: 09/11/18 21:00 Dose: Not Given Documented by: Tramadol HCl (Ultram) 25 mg PO Q4H PRN PRN Reason: Pain Stop: 09/30/18 03:45 PG Care Time/CCT Total # of Minutes Spent Total Time Spent with Patient: Total time spent is greater than 50% in coordination of care (as documented) at patient's floor/unit and/or counseling patient: Critical Care Time: Yes Total Critical Care Time: 40 (1) Pulmonary embolus Pulmonary embolism type: unspecified Chronicity: acute Acute cor pulmonale presence: without acute cor pulmonale Qualified Code(s): I26.99 - Other pulmonary embolism without acute cor pulmonale
[2018-09-12] MEDS ORDERED: INSULIN HUMAN NPH SC ONE ×2 (09:00→14:30)
[2018-09-12] MEDS ORDERED: LISINOPRIL 20 MG TAB PO SCH (09:00)
[2018-09-12] MEDS ORDERED: FUROSEMIDE 80 MG in SYRINGE 0 ML IV ONE (09:15)
--- NOTE | 2018-09-12 09:31 | XRay Report ---
XR chest 1V portable HISTORY: fluid overload COMPARISON: Chest 09/11/2018. FINDINGS: Cardiomegaly with severe pulmonary edema which has slightly progressed. There are trace mariama ateral pleural effusions. No pneumothorax. Low lung volumes. Right PICC terminates at the SVC. IMPRESSION: Progression of the pulmonary edema. Electronically signed by: Ashvin Dawson M.D. 09/12/2018 9:30 AM
[2018-09-12] MEDS: FLUTICASONE/SALMETEROL 100/50 (ADVAIR) 14 PUFF/1 INHALER INH SCH ×2 (09:36→19:47)
[2018-09-12] MEDS: FUROSEMIDE 20 MG TAB PO SCH (09:36)
[2018-09-12] MEDS: ROSUVASTATIN CALCIUM 10 MG TAB PO SCH (09:36)
[2018-09-12] MEDS: AMLODIPINE BESYLATE 5 MG TAB PO SCH (09:37)
[2018-09-12] MEDS: CEROVITE ADV FORMULA TAB PO SCH (09:37)
[2018-09-12] MEDS: DULERA PO SCH ×2 (09:37→20:28)
[2018-09-12] MEDS: predniSONE 20 MG TAB PO SCH (09:37)
[2018-09-12] MEDS: PANTOprazole 40 MG TAB PO SCH (09:37)
--- NOTE | 2018-09-12 09:42 | Cardiology Progress Note ---
Date of Service September 12, 2018 Assessment & Plan (1) Interstitial lung disease: 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 Pacemaker extracted 09/01/2018 without complication. Remains sinus rhythm/tachycardia with 2-1 AV block on telemetry. Pulmonary status has continued to worsen with higher O2 demands persistent need for BiPAP despite 2 L diuresis. Physical examination not consistent with significant volume overload or congestive failure. Echocardiogram yesterday demonstrated normal to hyperdynamic LV systolic function and no significant valvular disease. Pulmonary pressures are significantly elevated Findings are suggestive of chronic interstitial lung disease with possible superimposed ARDS Agree with plans for management of hypertension in the intensive care unit, would continue to diurese as blood pressure and renal function appear to allow. Patient and family have declined intubation and CPR as part of management Appreciate roll forming machine operator input (2) Pulmonary embolus: (3) Bacteremia due to methicillin susceptible Staphylococcus aureus (MSSA): (4) Mobitz type 2 second degree atrioventricular block: 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 Pacemaker extracted 09/01/2018 without complication. Remains sinus rhythm/tachycardia with 2-1 AV block on telemetry. (5) Infection of pacemaker pocket: Continue current antibiotic therapy per direction of infectious disease. Subjective Telemetry continues to do Patient seen and examined, chart medications telemetry reviewed. Appreciate ICU care and plans Patient remains in sinus and sinus tachycardia with 2-1 AV block rates 55-60 without decline or pause Review of Systems Review of Systems: Unobtainable due to endotracheal tube Physical Exam Constitutional: + ill appearing On BiPAP requiring 100% oxygen supplementation Eyes: PERRL, conjunctivae normal, anicteric sclerae Neck: trachea midline, no thyromegaly Respiratory: Auscultation: + diminished lung sounds, + crackles and + rales Cardiovascular: Rate/Rhythm: regular rate Heart Sounds: normal S1 and normal S2; no gallop Vessels: no JVD (Neck veins flat) and no carotid bruit Extremities: no edema (1+) Chest (Breasts): Additional Comments: Pacemaker pocket without drainage bandage intact Gastrointestinal (Abdomen): Percussion/Palpation: abdomen soft Musculoskeletal: no cyanosis or clubbing, extremities motor strength 5/5 Skin: no rashes, warm and dry Results & Data Vital Signs (Past 12 Hours) Vital Signs Temp Pulse Pulse Pulse Resp BP Pulse Ox 09/12/18 07:21 36.9 C 62 25 H 181/69 H 98 09/12/18 07:15 61 62 27 H 92 09/12/18 05:04 157/63 H 09/12/18 04:21 36.9 C 61 20 181/65 H 98 09/12/18 02:30 66 09/12/18 01:47 65 173/71 H 89 L 09/12/18 01:31 62 62 34 H 89 L 09/12/18 00:16 37.4 C 56 L 16 165/64 H 97 09/11/18 21:42 36.0 C L 64 24 160/65 H 96 Laboratory Results Laboratory Results - last 24 hr 09/11/18 09/11/18 09/11/18 11:23 14:08 16:20 WBC RBC Hgb Hct MCV MCH MCHC RDW Std Deviation RDW Coeff of Gabriel Plt Count MPV Immature Gran % (Auto) Neut % (Auto) Lymph % (Auto) [place] % (Auto) Eos % (Auto) Baso % (Auto) Immature Gran # (Auto) Neut # (Auto) Lymph # (Auto) [place] # (Auto) Eos # (Auto) Baso # (Auto) APTT 50.2 H* PTT Ratio 1.9 Sample Site POC pH POC pCO2 POC pO2 POC HCO3 POC Total CO2 POC Base Excess POC ABG O2 Sat Wilian Test O2 Delivery Device POC O2 Rate POC FiO2 IPAP Sodium Potassium Chloride Carbon Dioxide Anion Gap BUN Creatinine Est Cr Clr Drug Dosing Est GFR ( Amer) Est GFR (Non-Af Amer) BUN/Creatinine Ratio Glucose POC Glucose 128 H 150 H Calcium Phosphorus Magnesium Nasal Screen MRSA (PCR) 09/11/18 09/11/18 09/11/18 16:33 20:26 20:32 WBC RBC Hgb Hct MCV MCH MCHC RDW Std Deviation RDW Coeff of Gabriel Plt Count MPV Immature Gran % (Auto) Neut % (Auto) Lymph % (Auto) [place] % (Auto) Eos % (Auto) Baso % (Auto) Immature Gran # (Auto) Neut # (Auto) Lymph # (Auto) [place] # (Auto) Eos # (Auto) Baso # (Auto) APTT PTT Ratio Sample Site R Radial POC pH 7.45 POC pCO2 47 H POC pO2 55 L POC HCO3 32 H POC Total CO2 34 H POC Base Excess 8.0 H POC ABG O2 Sat 89.0 L Wilian Test Pass O2 Delivery Device BIPAP POC O2 Rate 26 POC FiO2 60 IPAP 10 Sodium 124 L Potassium 3.9 D Chloride 84 L Carbon Dioxide 32 Anion Gap 8.0 BUN 25 H Creatinine 0.73 Est Cr Clr Drug Dosing 64.3 Est GFR ( Amer) 89.5 Est GFR (Non-Af Amer) 77.2 BUN/Creatinine Ratio 34.6 H Glucose 144 H POC Glucose 165 H Calcium 8.6 Phosphorus 2.9 Magnesium 1.9 Nasal Screen MRSA (PCR) 09/12/18 09/12/18 09/12/18 06:33 06:33 06:33 WBC 24.87 H RBC 3.33 L Hgb 10.5 L Hct 30.7 L MCV 92.2 MCH 31.5 MCHC 34.2 RDW Std Deviation 44.3 RDW Coeff of Gabriel 13.1 Plt Count 227 MPV 10.5 H Immature Gran % (Auto) 0.3 Neut % (Auto) 95.8 Lymph % (Auto) 1.0 [place] % (Auto) 2.9 Eos % (Auto) 0.0 Baso % (Auto) 0.0 Immature Gran # (Auto) 0.08 H Neut # (Auto) 23.79 H Lymph # (Auto) 0.26 L [place] # (Auto) 0.72 H Eos # (Auto) 0.01 Baso # (Auto) 0.01 APTT 55.8 H* PTT Ratio 2.1 Sample Site POC pH POC pCO2 POC pO2 POC HCO3 POC Total CO2 POC Base Excess POC ABG O2 Sat Wilian Test O2 Delivery Device POC O2 Rate POC FiO2 IPAP Sodium 125 L Potassium 3.6 Chloride 83 L Carbon Dioxide 32 Anion Gap 10.0 BUN 27 H Creatinine 0.80 Est Cr Clr Drug Dosing 56.7 Est GFR ( Amer) 80.1 Est GFR (Non-Af Amer) 69.1 BUN/Creatinine Ratio 33.4 H Glucose 141 H POC Glucose Calcium 8.5 Phosphorus Magnesium Nasal Screen MRSA (PCR) 09/12/18 09/12/18 09/12/18 07:19 09:08 09:43 WBC RBC Hgb Hct MCV MCH MCHC RDW Std Deviation RDW Coeff of Gabriel Plt Count MPV Immature Gran % (Auto) Neut % (Auto) Lymph % (Auto) [place] % (Auto) Eos % (Auto) Baso % (Auto) Immature Gran # (Auto) Neut # (Auto) Lymph # (Auto) [place] # (Auto) Eos # (Auto) Baso # (Auto) APTT PTT Ratio Sample Site POC pH POC pCO2 POC pO2 POC HCO3 POC Total CO2 POC Base Excess POC ABG O2 Sat Wilian Test O2 Delivery Device POC O2 Rate POC FiO2 IPAP Sodium Potassium Chloride Carbon Dioxide Anion Gap BUN Creatinine Est Cr Clr Drug Dosing Est GFR ( Amer) Est GFR (Non-Af Amer) BUN/Creatinine Ratio Glucose POC Glucose 147 H Pending Calcium Phosphorus Magnesium Nasal Screen MRSA (PCR) Pending (1) Pulmonary embolus Acute cor pulmonale presence: without acute cor pulmonale Chronicity: acute Pulmonary embolism type: unspecified Qualified Code(s): I26.99 - Other pulmonary embolism without acute cor pulmonale
[2018-09-12] MEDS: INSULIN ASPART 100 UNITS/ML 3 ML PEN SC SCH ×5 (09:52→23:24)
--- NOTE | 2018-09-12 11:53 | Pharmacy Report ---
Pharmacy Glycemic Short Note 2 - Date of Service September 12, 2018 - Glycemic Short BSG Results (Last 24 hours): 09/11/18 09/11/18 09/11/18 16:20 20:26 20:32 Glucose 144 H POC Glucose 150 H 165 H 09/12/18 09/12/18 09/12/18 06:33 07:19 09:43 Glucose 141 H POC Glucose 147 H 155 H Outpatient Anti-diabetic Regimen: * Metformin 500 mg po BID * Note: also on prednisone 10 mg po daily * A1c = 7.1% on 09/02/18 Risk Factors for Insulin Resistance: ASSESSMENT: * Steroids: Ordered Prednisone 40mg PO dialy; however, pt unable to take d/t continuous BiPAP needed. Pt ordered NPH to cover steroid induced hyperglycemia but it has been held with prednisone * BSGs well controlled at [phone] mg/dl but little/no PO intake and steroids being held * Pt has only required 1 unit of insulin over the past 24hrs. No changes needed today. Will need to adjust insulin dosing if IV steroids are initiated. PLAN FOR INPATIENT GLYCEMIC CONTROL: * Hold outpatient metformin * Basal insulin: hold while prednisone on hold * Bolus insulin * NovoLog per scale ACHS with one overnight check * Goal range: 120-160 mg/dL * Correction factor: 25 mg/dL/unit * Carb ratio: 8 g CHO/unit
[2018-09-12] MEDS ORDERED: ALBUMIN 25% 50 ML IV ONE (12:15)
[2018-09-12] MEDS: HYDROmorphone INJ 0.5 MG/0.5 ML SYR IV PRN (12:53)
[2018-09-12] MEDS ORDERED: FUROSEMIDE 80 MG in SYRINGE 0 ML IV SCH (13:45)
[2018-09-12] MEDS ORDERED: methylPREDNISolone 125 MG/2 ML VIAL IV STA (13:55)
[2018-09-12] MEDS ORDERED: methylPREDNISolone 125 MG/2 ML VIAL IV SCH (14:00)
--- NOTE | 2018-09-12 14:04 | Critical Care Progress Note ---
Date of Service September 12, 2018 Subjective I have seen and examined the patient. Overall she is doing poorly. Her blood pressure is well maintained on Cardene 5 mg/h and current blood pressure is 150/67. Heart rate is around 59-62. She is on BiPAP 16/8 100% FiO2 and she is maintaining saturation around 98%. Patient is comfortable resting on her BiPAP. All the family members were here and we had a family discussion/family meeting in the presence of bedside nurse Ena. The family was involved completely with the care of the patient. They were explained about her current medical condition, ongoing plan of treatment, all the lab results and echo results and microbiology results. After all this discussion that multiple questions which were answered. Ultimately the decision was to keep her comfortable, DNR/DNI and continue other treatment. Also requested to give her morphine as needed so currently we are giving her 2 mg every 2 hours IV as needed for comfort care. We are going to continue with all the management as prescribed. I have discussed the case extensively with Dr. Mckinnon who is her primary care and Dr. Verma who is her medical oncologist. I have spent another extra 30 minutes of critical care time. Results & Data Vital Signs (Past 12 Hours) Vital Signs Temp Pulse Pulse Resp BP BP Pulse Ox 09/12/18 11:45 62 23 151/72 H 90 09/12/18 11:30 54 L 17 126/52 L 96 09/12/18 11:15 55 L 19 122/48 L 96 09/12/18 11:00 56 L 18 119/47 L 95 09/12/18 10:45 57 L 17 119/54 L 99 09/12/18 10:30 57 L 18 143/53 H 98 09/12/18 10:05 61 26 H 157/59 H 95 09/12/18 10:00 57 L 18 142/55 H 97 09/12/18 09:55 60 19 147/68 H 98 09/12/18 09:50 58 L 15 129/53 L 97 09/12/18 09:45 59 L 17 142/54 H 97 09/12/18 09:40 60 21 154/60 H 99 09/12/18 09:35 58 L 19 145/51 H 98 09/12/18 09:30 63 30 H 164/64 H 99 09/12/18 09:00 63 27 H 167/70 H 99 09/12/18 08:45 36.6 C 63 27 H 177/80 H 98 09/12/18 07:21 36.9 C 62 25 H 181/69 H 98 09/12/18 07:15 61 62 27 H 92 09/12/18 05:04 157/63 H 09/12/18 04:21 36.9 C 61 20 181/65 H 98 09/12/18 02:30 66 PG Care Time/CCT Total # of Minutes Spent Total Time Spent with Patient: Total time spent is greater than 50% in coordination of care (as documented) at patient's floor/unit and/or counseling patient: Critical Care Time: Yes Total Critical Care Time: 30
[2018-09-12] MEDS ORDERED: methylPREDNISolone 125 MG in SYRINGE 0 ML IV ONE (14:15)
[2018-09-12] MEDS: MoRPHine SULFATE 2 MG/ML CARP IV PRN ×3 (16:35→22:07)
[2018-09-12] MEDS: DAPTOmycin 400 MG in SYRINGE 0 ML IV SCH (18:08)
[2018-09-12] MEDS: ARTIFICIAL TEARS OP SCH (20:27)
[2018-09-12] MEDS: FAMOTIDINE 20 MG in SYRINGE 3 ML IV SCH (20:43)
[2018-09-12] MEDS ORDERED: FAMOTIDINE 20MG/5ML IV PUSH IV SCH (21:00)
[2018-09-12] MEDS: methylPREDNISolone 80 MG in SYRINGE 0 ML IV SCH (22:04)
[2018-09-12] MEDS: Heparin Adult STANDARD Wt-Based Dextrose 5% 25,000 units/500 mL IV SCH (23:13)
[2018-09-13] MEDS: IPRATROPIUM BROMIDE NEB SOLN 0.02% 2.5 ML VIAL INH SCH ×4 (02:15→19:30)
[2018-09-13] MEDS: LEVALBUTEROL HCL 0.63 MG/3 ML NEB NEB SCH ×4 (02:15→19:31)
[2018-09-13] MEDS: MoRPHine SULFATE 2 MG/ML CARP IV PRN (02:40)
--- NOTE | 2018-09-13 03:26 | Critical Care Progress Note ---
Date of Service 0300: September 13, 2018 Subjective I was approached by nursing and asked to evaluate patient at bedside as she is requesting change in her CODE STATUS. Her daughter is present at bedside. I had a lengthy conversation with the patient regarding her clinical condition and worsening respiratory status. At this point, she would wish to be made a full code and is requesting to be intubated. On exam, the patient does have increasing work of breathing. Review of her chart demonstrates concerns for progressively worsening ARDS. Attempts at diuresis earlier were unsuccessful. I had a lengthy discussion regarding intubation given her comorbid conditions including pulmonary fibrosis and current lack of diuresis despite aggressive management. We did discuss CODE STATUS including chest compressions as well as aggressive ACLS. All risks and benefits were discussed with the patient. Despite our lengthy conversation, she does wish to proceed as a full code. She is request intubation which we will proceed with this time. Please see separate procedure note for intubation. Repeat labs were obtained prior to intubation. While she is actually eating well, the patient has been on BiPAP for greater than 48 hours this time without improvement of symptoms. We will proceed with high PEEP, low FiO2 settings and attempt to improve her clinical picture. Shortly after intubation, the patient did become bradycardic in the low 30s. She remained with strong pulses and decent blood pressure throughout. She did sustain this while being sedated. Because of this, the patient was transiently placed on dopamine which was the quickest drug at bedside. 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 This drug is obviously known for being arrhythmia genic and dysrhythmia in this patient would certainly be catastrophic. We did switch to levo fed which is present at bedside if necessary. At this point, we will provide spot doses of analgesia. Conversation was had regarding paralysis of patient for aggressive PEEP pressures, however given her current improvement in oxygenation, I do feel that we will be better off continuing current course, especially with the patient's likely need for bronchoscopy in the next few hours. Patient did rebound and had persistent heart rates in the 50s which was consistent with her prior heart rate. Blood pressures normalized. She continues to do well otherwise. Patient's family was updated. They are at bedside this time. Patient clinically is doing as well as can be expected. I have personally spent 80 minutes of critical care time in the direct management of this patient. This is a life/limb threatening event. This includes time spent evaluating patient, direct bedside care, chart review, placing orders, interpretation of diagnostic studies, discussion with consultants, patient, and family members, as well as other required patient management activities. This time is exclusive of all separately billable procedures, and teaching time and separate from and in addition to any other critical care service time. Results & Data Vital Signs (Past 12 Hours) Vital Signs Temp Pulse Pulse Pulse Resp BP BP 09/13/18 02:18 59 L 31 H 09/13/18 02:16 59 L 31 H 09/13/18 02:00 58 L 23 138/55 L 09/13/18 01:30 56 L 19 137/58 L 09/13/18 01:00 55 L 14 128/53 L 09/13/18 00:30 59 L 33 H 137/59 L 09/13/18 00:03 60 26 H 09/13/18 00:01 36.9 C 60 31 H 136/86 09/13/18 00:00 60 33 H 136/86 09/12/18 23:35 60 35 H 09/12/18 23:30 57 L 20 129/56 L 09/12/18 23:00 55 L 22 128/53 L 09/12/18 22:30 58 L 31 H 132/59 L 09/12/18 22:00 59 L 33 H 140/62 09/12/18 21:30 59 L 26 H 139/65 09/12/18 21:00 60 21 153/68 H 09/12/18 20:30 58 L 29 H 138/66 09/12/18 20:00 61 32 H 144/63 H 09/12/18 19:50 61 28 H 09/12/18 19:37 60 31 H 09/12/18 19:30 36.5 C 61 34 H 139/76 09/12/18 19:00 36.5 C 61 60 29 H 141/70 H 139/76 09/12/18 18:30 60 28 H 149/62 H 09/12/18 18:00 62 29 H 150/67 H 09/12/18 17:30 61 24 148/69 H 09/12/18 17:00 61 28 H 143/56 H 09/12/18 16:30 64 33 H 154/70 H 09/12/18 16:00 37.4 C 61 19 148/56 H 09/12/18 15:30 60 19 147/72 H Pulse Ox Pulse Ox 09/13/18 02:18 100 09/13/18 02:16 100 09/13/18 02:00 100 09/13/18 01:30 100 09/13/18 01:00 97 09/13/18 00:30 100 09/13/18 00:03 100 09/13/18 00:01 100 09/13/18 00:00 97 09/12/18 23:35 100 09/12/18 23:30 100 09/12/18 23:00 98 09/12/18 22:30 98 09/12/18 22:00 100 09/12/18 21:30 99 09/12/18 21:00 99 09/12/18 20:30 99 09/12/18 20:00 100 94 09/12/18 19:50 99 09/12/18 19:37 99 09/12/18 19:30 99 09/12/18 19:00 99 09/12/18 18:30 99 09/12/18 18:00 99 09/12/18 17:30 98 09/12/18 17:00 97 09/12/18 16:30 96 09/12/18 16:00 97 09/12/18 15:30 97 PG Care Time/CCT Total # of Minutes Spent Total Time Spent with Patient: Total time spent is greater than 50% in coordi nation of care (as documented) at patient's floor/unit and/or counseling patient: Critical Care Time: Yes Total Critical Care Time: 80
[2018-09-13] MEDS ORDERED: RAPID SEQUENCE INDUCTION BAG ONE (03:33)
[2018-09-13 03:52] LABS: iSTAT Allen Test Pass; iSTAT Art Bld Gas pCO2 Correct 55 mmHg (35-46); iSTAT Art Bld Gas pH Corrected 7.355 (7.35-7.45); iSTAT Arterial Blood Gas HCO3 31 meg/L (19-24); iSTAT Arterial Blood Gas pCO2 56 mmHg (35-46); iSTAT Arterial Blood Gas pH 7.35 (7.35-7.45); iSTAT Carbon Dioxide 32 mEq/l (24-31); iSTAT FiO2 100 %; iSTAT Site R Radial
--- NOTE | 2018-09-13 04:20 | Anesthesiology Progress Note ---
Date of Service September 13, 2018 Subjective Called to provide assistance as needed with intubation for impending respiratory failure in 83 yo female who has been requiring BiPAP for worsening pulmonary edema and PE. On arrival I spoke to the patients daughter and the patient and verbally confirmed that both were in agreement with planned intubation. (Written consent obtained by ICU team prior to my arrival.) Patient was allowed to preoxygenate on BiPAP and then was induced with 2 mg of midazolam, 10 mg of etomidate, and 80 mg of succinylcholine. ETT was placed atraumatically on the first attempt by ZAY Early using the glidescope with a grade 1 view. Placement was confirmed by EtCO2 detection and the presence of bilateral breath sounds. Patient hemodynamically stable throughout and oxygen saturation 98% or greater at all times. CXR ordered and pending. Marzena Rowe MD, PhD Anesthesiology Physical Exam Vital Signs: Last Vital Signs Temp 36.9 C 09/13/18 00:01 Pulse 59 L 09/13/18 02:18 Resp 31 H 09/13/18 02:18 BP 138/55 L 09/13/18 02:00 Pulse Ox 100 09/13/18 02:18 Results & Data Medications Administered Acetaminophen (Tylenol) 650 mg PO Q4H PRN PRN Reason: Pain or Fever Stop: 09/30/18 03:45 Last Admin: 09/10/18 22:01 Dose: 650 mg Documented by: [id number] Admin: 09/09/18 23:45 Dose: 650 mg Documented by: [id number] Admin: 09/06/18 02:07 Dose: 650 mg Documented by: [id number] Admin: 09/04/18 21:25 Dose: 650 mg Documented by: [id number] Admin: 08/31/18 20:14 Dose: 650 mg Documented by: [id number] Admin: 08/31/18 08:26 Dose: 650 mg Documented by: [id number] Al Hydrox/Mg Hydrox/Simethicone (Maalox) 30 ml PO Q6H PRN PRN Reason: Dyspepsia Stop: 10/07/18 09:11 Last Admin: 09/07/18 09:39 Dose: 30 ml Documented by: [id number] Amlodipine Besylate (Norvasc) 10 mg PO DAILY NYDIA Stop: 10/05/18 08:59 Last Admin: 09/12/18 09:37 Dose: Not Given Documented by: [id number] Admin: 09/11/18 09:21 Dose: Not Given Documented by: [id number] Admin: 09/10/18 08:39 Dose: 10 mg Documented by: [id number] Admin: 09/09/18 09:14 Dose: 10 mg Documented by: [id number] Admin: 09/08/18 08:08 Dose: 10 mg Documented by: [id number] Admin: 09/07/18 08:53 Dose: 10 mg Documented by: [id number] Admin: 09/06/18 08:55 Dose: 10 mg Documented by: [id number] Admin: 09/05/18 07:57 Dose: 10 mg Documented by: [id number] Artificial Tears (Artificial Tears) 1 drops OP HS NYDIA Stop: 09/30/18 20:59 Last Admin: 09/12/18 20:27 Dose: 1 drops Documented by: [id number] Admin: 09/11/18 21:00 Dose: Not Given Documented by: [id number] Admin: 09/10/18 21:52 Dose: Not Given Documented by: [id number] Admin: 09/09/18 21:35 Dose: 1 drops Documented by: [id number] Admin: 09/08/18 20:53 Dose: 1 drops Documented by: [id number] Admin: 09/07/18 21:13 Dose: 1 drops Documented by: [id number] Admin: 09/06/18 20:48 Dose: 1 drops Documented by: [id number] Admin: 09/05/18 20:53 Dose: 1 drops Documented by: [id number] Admin: 09/04/18 20:15 Dose: 1 drops Documented by: [id number] Admin: 09/03/18 21:22 Dose: 1 drops Documented by: [id number] Admin: 09/02/18 20:53 Dose: 1 drops Documented by: [id number] Admin: 09/01/18 20:11 Dose: Not Given Documented by: [id number] Admin: 08/31/18 20:16 Dose: 1 drops Documented by: [id number] Clotrimazole (Mycelex) 10 mg BUCCAL [id number] NYDIA Stop: 09/19/18 18:59 Last Admin: 09/12/18 22:24 Dose: Not Given Documented by: [id number] Admin: 09/12/18 19:26 Dose: Not Given Documented by: [id number] Admin: 09/12/18 14:18 Dose: Not Given Documented by: [id number] Admin: 09/12/18 12:39 Dose: Not Given Documented by: [id number] Admin: 09/12/18 07:32 Dose: Not Given Documented by: [id number] Admin: 09/11/18 23:08 Dose: Not Given Documented by: [id number] Admin: 09/11/18 19:37 Dose: Not Given Documented by: [id number] Admin: 09/11/18 14:26 Dose: Not Given Documented by: [id number] Admin: 09/11/18 11:41 Dose: Not Given Documented by: [id number] Admin: 09/11/18 09:20 Dose: Not Given Documented by: [id number] Admin: 09/10/18 21:53 Dose: 10 mg Documented by: [id number] Admin: 09/10/18 18:58 Dose: 10 mg Documented by: [id number] Admin: 09/10/18 16:02 Dose: 10 mg Documented by: [id number] Admin: 09/10/18 12:14 Dose: 10 mg Documented by: [id number] Admin: 09/10/18 08:39 Dose: 10 mg Documented by: [id number] Admin: 09/09/18 23:47 Dose: Not Given Documented by: [id number] Admin: 09/09/18 19:29 Dose: 10 mg Documented by: [id number] Promethazine HCl 12.5 mg/ (Sodium Chloride) 50.5 mls @ 202 mls/hr IV Q6H PRN PRN Reason: Nausea And Vomiting Stop: 09/30/18 00:49 Last Infusion: 09/07/18 12:07 Dose: 0 mls/hr Documented by: [id number] Admin: 09/07/18 10:41 Dose: 202 mls/hr Documented by: [id number] Infusion: 08/31/18 08:50 Dose: 0 mls/hr Documented by: [id number] Admin: 08/31/18 08:35 Dose: 202 mls/hr Documented by: [id number] Heparin Sodium/Dextrose (Heparin Sodium/Dextrose) 25,000 units in 500 mls @ 19 mls/hr IV .Q24H [facility]; Protocol Stop: 10/05/18 15:29 Last Admin: 09/12/18 23:13 Dose: 950 units/hr, 19 mls/hr Documented by: [id number] Cosigned by: [id number] Titration: 09/12/18 23:13 Dose: 950 units/hr, 19 mls/hr Documented by: [id number] Cosigned by: [id number] Titration: 09/12/18 19:13 Dose: 950 units/hr, 19 mls/hr Documented by: [id number] Cosigned by: [id number] Titration: 09/12/18 08:42 Dose: 950 units/hr, 19 mls/hr Documented by: [id number] Cosigned by: [id number] Titration: 09/12/18 07:00 Dose: 950 units/hr, 19 mls/hr Documented by: [id number] Cosigned by: [id number] Admin: 09/11/18 22:47 Dose: 950 units/hr, 19 mls/hr Documented by: [id number] Cosigned by: [id number] Titration: 09/11/18 22:47 Dose: 950 units/hr, 19 mls/hr Documented by: [id number] Cosigned by: [id number] Titration: 09/11/18 15:16 Dose: 950 units/hr, 19 mls/hr Documented by: [id number] Cosigned by: [id number] Titration: 09/11/18 07:57 Dose: 950 units/hr, 19 mls/hr Documented by: [id number] Cosigned by: [id number] Titration: 09/11/18 07:22 Dose: 1,000 units/hr, 20 mls/hr Documented by: [id number] Cosigned by: [id number] Titration: 09/10/18 23:10 Dose: 1,000 units/hr, 20 mls/hr Documented by: [id number] Cosigned by: [id number] Admin: 09/10/18 22:37 Dose: 1,000 units/hr, 20 mls/hr Documented by: [id number] Cosigned by: [id number] Titration: 09/10/18 22:37 Dose: 1,000 units/hr, 20 mls/hr Documented by: [id number] Cosigned by: [id number] Titration: 09/10/18 15:19 Dose: 1,000 units/hr, 20 mls/hr Documented by: [id number] Cosigned by: [id number] Titration: 09/10/18 07:09 Dose: 1,000 units/hr, 20 mls/hr Documented by: [id number] Cosigned by: [id number] Admin: 09/09/18 23:47 Dose: 1,000 units/hr, 20 mls/hr Documented by: [id number] Cosigned by: [id number] Titration: 09/09/18 23:45 Dose: 1,000 units/hr, 20 mls/hr Documented by: [id number] Cosigned by: [id number] Titration: 09/09/18 23:15 Dose: 1,000 units/hr, 20 mls/hr Documented by: [id number] Cosigned by: [id number] Titration: 09/09/18 15:13 Dose: 1,000 units/hr, 20 mls/hr Documented by: [id number] Cosigned by: [id number] Titration: 09/09/18 07:23 Dose: 1,000 units/hr, 20 mls/hr Documented by: [id number] Cosigned by: [id number] Admin: 09/09/18 03:40 Dose: 1,000 units/hr, 20 mls/hr Documented by: [id number] Cosigned by: [id number] Titration: 09/09/18 03:40 Dose: 1,000 units/hr, 20 mls/hr Documented by: [id number] Cosigned by: [id number] Titration: 09/08/18 14:34 Dose: 1,000 units/hr, 20 mls/hr Documented by: [id number] Cosigned by: [id number] Titration: 09/08/18 08:00 Dose: 1,000 units/hr, 20 mls/hr Documented by: [id number] Cosigned by: [id number] Titration: 09/08/18 07:00 Dose: 0 units/hr, 0 mls/hr Documented by: [id number] Cosigned by: [id number] Admin: 09/08/18 03:54 Dose: 1,150 units/hr, 23 mls/hr Documented by: [id number] Cosigned by: [id number] Titration: 09/08/18 03:54 Dose: 1,150 units/hr, 23 mls/hr Documented by: [id number] Cosigned by: [id number] Admin: 09/07/18 07:02 Dose: 1,150 units/hr, 23 mls/hr Documented by: [id number] Cosigned by: [id number] Titration: 09/07/18 07:02 Dose: 1,150 units/hr, 23 mls/hr Documented by: [id number] Cosigned by: [id number] Titration: 09/06/18 19:07 Dose: 1,150 units/hr, 23 mls/hr Documented by: [id number] Cosigned by: [id number] Admin: 09/06/18 09:36 Dose: 1,150 units/hr, 23 mls/hr Documented by: [id number] Cosigned by: [id number] Titration: 09/06/18 09:36 Dose: 1,150 units/hr, 23 mls/hr Documented by: [id number] Cosigned by: [id number] Titration: 09/06/18 07:16 Dose: 1,150 units/hr, 23 mls/hr Documented by: [id number] Cosigned by: [id number] Admin: 09/05/18 15:37 Dose: 1,200 units/hr, 24 mls/hr Documented by: [id number] Cosigned by: [id number] Daptomycin 400 mg/ Syringe 8 mls @ 4 mls/min IV DAILY@1800 NYDIA; Protocol Stop: 09/23/18 17:59 Last Admin: 09/12/18 18:08 Dose: 4 mls/min Documented by: [id number] Admin: 09/11/18 19:37 Dose: 4 mls/min Documented by: [id number] Admin: 09/10/18 18:58 Dose: 4 mls/min Documented by: [id number] Admin: 09/09/18 18:30 Dose: 4 mls/min Documented by: [id number] Cefepime HCl 2,000 mg/ Syringe 20 mls @ 5 mls/min IV Q8H NYDIA; Protocol Stop: 09/21/18 07:59 Last Admin: 09/12/18 23:15 Dose: 5 mls/min Documented by: [id number] Admin: 09/12/18 15:31 Dose: 5 mls/min Documented by: [id number] Admin: 09/12/18 07:33 Dose: 5 mls/min Documented by: [id number] Admin: 09/12/18 00:21 Dose: 5 mls/min Documented by: [id number] Admin: 09/11/18 16:53 Dose: 5 mls/min Documented by: [id number] Admin: 09/11/18 08:56 Dose: 5 mls/min Documented by: [id number] Nicardipine HCl 25 mg/ Sodium (Chloride) 250 mls @ 0 mls/hr IV .Q0M NYDIA; Protocol Stop: 10/12/18 08:59 Last Admin: 09/12/18 23:13 Dose: 5 mg/hr, 50 mls/hr Documented by: [id number] Cosigned by: [id number] Titration: 09/12/18 23:13 Dose: 5 mg/hr, 50 mls/hr Documented by: [id number] Cosigned by: [id number] Titration: 09/12/18 19:13 Dose: 5 mg/hr, 50 mls/hr Documented by: [id number] Cosigned by: [id number] Admin: 09/12/18 18:23 Dose: 5 mg/hr, 50 mls/hr Documented by: [id number] Cosigned by: [id number] Titration: 09/12/18 18:23 Dose: 5 mg/hr, 50 mls/hr Documented by: [id number] Cosigned by: [id number] Admin: 09/12/18 14:03 Dose: 5 mg/hr, 50 mls/hr Documented by: [id number] Cosigned by: [id number] Titration: 09/12/18 14:03 Dose: 5 mg/hr, 50 mls/hr Documented by: [id number] Cosigned by: [id number] Admin: 09/12/18 09:24 Dose: 5 mg/hr, 50 mls/hr Documented by: [id number] Cosigned by: [id number] Methylprednisolone 80 mg/ (Syringe) 1.28 mls @ 1.5 mls/min IV Q8H NYDIA Stop: 10/12/18 21:59 Last Admin: 09/12/18 22:04 Dose: 1.5 mls/min Documented by: [id number] Famotidine 20 mg/ Syringe 5 mls @ 2.5 mls/min IV BID NYDIA Stop: 10/12/18 20:59 Last Admin: 09/12/18 20:43 Dose: 2.5 mls/min Documented by: [id number] Insulin Aspart (Novolog Flexpen) 0 units SC ACHS NYDIA Stop: 10/09/18 16:29 Last Admin: 09/12/18 20:29 Dose: Not Given Documented by: [id number] Cosigned by: [id number] Admin: 09/12/18 16:34 Dose: 1 units Documented by: [id number] Cosigned by: [id number] Admin: 09/12/18 13:37 Dose: Not Given Documented by: [id number] Cosigned by: [id number] Admin: 09/12/18 09:52 Dose: 1 units Documented by: [id number] Cosigned by: [id number] Admin: 09/11/18 20:47 Dose: 1 units Documented by: [id number] Cosigned by: [id number] Admin: 09/11/18 17:04 Dose: Not Given Documented by: [id number] Cosigned by: [id number] Admin: 09/11/18 11:43 Dose: Not Given Documented by: [id number] Cosigned by: [id number] Admin: 09/11/18 07:59 Dose: Not Given Documented by: [id number] Cosigned by: [id number] Admin: 09/10/18 21:58 Dose: 5 units Documented by: [id number] Cosigned by: [id number] Admin: 09/10/18 16:49 Dose: Not Given Documented by: [id number] Cosigned by: [id number] Admin: 09/10/18 12:14 Dose: 4 units Documented by: [id number] Cosigned by: [id number] Admin: 09/10/18 08:41 Dose: Not Given Documented by: [id number] Cosigned by: [id number] Admin: 09/09/18 21:19 Dose: 1 units Documented by: [id number] Cosigned by: [id number] Admin: 09/09/18 17:12 Dose: 7 units Documented by: [id number] Cosigned by: [id number] Ipratropium [place] (Atrovent 0.02% 0.5mg/2.5ml) 0.5 mg INH Q6R NYDIA Stop: 10/03/18 13:59 Last Admin: 09/13/18 02:15 Dose: 0.5 mg Documented by: [id number] Admin: 09/12/18 19:50 Dose: 0.5 mg Documented by: [id number] Admin: 09/12/18 15:17 Dose: 0.5 mg Documented by: [id number] Admin: 09/12/18 07:15 Dose: 0.5 mg Documented by: [id number] Admin: 09/12/18 01:29 Dose: 0.5 mg Documented by: [id number] Admin: 09/11/18 18:59 Dose: 0.5 mg Documented by: [id number] Admin: 09/11/18 14:05 Dose: 0.5 mg Documented by: [id number] Admin: 09/11/18 07:12 Dose: 0.5 mg Documented by: [id number] Admin: 09/11/18 01:57 Dose: 0.5 mg Documented by: [id number] Admin: 09/10/18 19:19 Dose: 0.5 mg Documented by: [id number] Admin: 09/10/18 13:53 Dose: 0.5 mg Documented by: [id number] Admin: 09/10/18 07:12 Dose: 0.5 mg Documented by: [id number] Admin: 09/10/18 02:37 Dose: 0.5 mg Documented by: [id number] Admin: 09/09/18 18:50 Dose: 0.5 mg Documented by: [id number] Admin: 09/09/18 14:09 Dose: 0.5 mg Documented by: [id number] Admin: 09/09/18 07:19 Dose: 0.5 mg Documented by: [id number] Admin: 09/09/18 01:49 Dose: 0.5 mg Documented by: [id number] Admin: 09/08/18 19:00 Dose: 0.5 mg Documented by: [id number] Admin: 09/08/18 13:05 Dose: 0.5 mg Documented by: [id number] Admin: 09/08/18 06:55 Dose: 0.5 mg Documented by: [id number] Admin: 09/08/18 01:57 Dose: Not Given Documented by: [id number] Admin: 09/07/18 19:07 Dose: 0.5 mg Documented by: [id number] Admin: 09/07/18 13:56 Dose: 0.5 mg Documented by: [id number] Admin: 09/07/18 07:01 Dose: 0.5 mg Documented by: [id number] Admin: 09/07/18 01:50 Dose: 0.5 mg Documented by: [id number] Admin: 09/06/18 19:10 Dose: 0.5 mg Documented by: [id number] Admin: 09/06/18 13:22 Dose: 0.5 mg Documented by: [id number] Admin: 09/06/18 07:05 Dose: 0.5 mg Documented by: [id number] Admin: 09/06/18 01:36 Dose: 0.5 mg Documented by: [id number] Admin: 09/05/18 19:11 Dose: 0.5 mg Documented by: [id number] Admin: 09/05/18 14:26 Dose: 0.5 mg Documented by: [id number] Admin: 09/05/18 06:58 Dose: 0.5 mg Documented by: [id number] Admin: 09/05/18 01:36 Dose: 0.5 mg Documented by: [id number] Admin: 09/04/18 19:17 Dose: 0.5 mg Documented by: [id number] Admin: 09/04/18 14:35 Dose: 0.5 mg Documented by: [id number] Admin: 09/04/18 07:21 Dose: 0.5 mg Documented by: [id number] Admin: 09/04/18 01:43 Dose: 0.5 mg Documented by: [id number] Admin: 09/03/18 19:11 Dose: 0.5 mg Documented by: [id number] Admin: 09/03/18 13:58 Dose: 0.5 mg Documented by: [id number] Levalbuterol HCl (Xopenex 0.63 Mg/3 Ml Neb) 0.63 mg NEB Q6R NYDIA Stop: 10/03/18 13:59 Last Admin: 09/13/18 02:15 Dose: 0.63 mg Documented by: [id number] Admin: 09/12/18 19:50 Dose: 0.63 mg Documented by: [id number] Admin: 09/12/18 15:17 Dose: 0.63 mg Documented by: [id number] Admin: 09/12/18 07:15 Dose: 0.63 mg Documented by: [id number] Admin: 09/12/18 01:29 Dose: 0.63 mg Documented by: [id number] Admin: 09/11/18 18:59 Dose: 0.63 mg Documented by: [id number] Admin: 09/11/18 14:05 Dose: 0.63 mg Documented by: [id number] Admin: 09/11/18 07:12 Dose: 0.63 mg Documented by: [id number] Admin: 09/11/18 01:57 Dose: 0.63 mg Documented by: [id number] Admin: 09/10/18 19:19 Dose: 0.63 mg Documented by: [id number] Admin: 09/10/18 13:53 Dose: 0.63 mg Documented by: [id number] Admin: 09/10/18 07:12 Dose: 0.63 mg Documented by: [id number] Admin: 09/10/18 02:37 Dose: 0.63 mg Documented by: [id number] Admin: 09/09/18 18:50 Dose: 0.63 mg Documented by: [id number] Admin: 09/09/18 14:09 Dose: 0.63 mg Documented by: [id number] Admin: 09/09/18 07:19 Dose: 0.63 mg Documented by: [id number] Admin: 09/09/18 01:48 Dose: 0.63 mg Documented by: [id number] Admin: 09/08/18 19:00 Dose: 0.63 mg Documented by: [id number] Admin: 09/08/18 13:05 Dose: 0.63 mg Documented by: [id number] Admin: 09/08/18 06:56 Dose: 0.63 mg Documented by: [id number] Admin: 09/08/18 01:57 Dose: Not Given Documented by: [id number] Admin: 09/07/18 19:07 Dose: 0.63 mg Documented by: [id number] Admin: 09/07/18 13:55 Dose: 0.63 mg Documented by: [id number] Admin: 09/07/18 07:01 Dose: 0.63 mg Documented by: [id number] Admin: 09/07/18 01:50 Dose: 0.63 mg Documented by: [id number] Admin: 09/06/18 19:10 Dose: 0.63 mg Documented by: [id number] Admin: 09/06/18 13:22 Dose: 0.63 mg Documented by: [id number] Admin: 09/06/18 07:05 Dose: 0.63 mg Documented by: [id number] Admin: 09/06/18 01:36 Dose: 0.63 mg Documented by: [id number] Admin: 09/05/18 19:11 Dose: 0.63 mg Documented by: [id number] Admin: 09/05/18 14:26 Dose: 0.63 mg Documented by: [id number] Admin: 09/05/18 06:57 Dose: 0.63 mg Documented by: [id number] Admin: 09/05/18 01:36 Dose: 0.63 mg Documented by: [id number] Admin: 09/04/18 19:17 Dose: 0.63 mg Documented by: [id number] Admin: 09/04/18 14:35 Dose: 0.63 mg Documented by: [id number] Admin: 09/04/18 07:21 Dose: 0.63 mg Documented by: [id number] Admin: 09/04/18 01:43 Dose: 0.63 mg Documented by: [id number] Admin: 09/03/18 19:11 Dose: 0.63 mg Documented by: [id number] Admin: 09/03/18 13:58 Dose: 0.63 mg Documented by: [id number] Levothyroxine Sodium (Synthroid) 50 mcg PO DAILYBB [facility] Stop: 09/30/18 06:29 Last Admin: 09/12/18 06:35 Dose: Not Given Documented by: [id number] Admin: 09/11/18 05:36 Dose: 50 mcg Documented by: [id number] Admin: 09/10/18 05:51 Dose: 50 mcg Documented by: [id number] Admin: 09/09/18 06:22 Dose: 50 mcg Documented by: [id number] Admin: 09/08/18 05:27 Dose: 50 mcg Documented by: [id number] Admin: 09/07/18 05:27 Dose: 50 mcg Documented by: [id number] Admin: 09/06/18 05:20 Dose: 50 mcg Documented by: [id number] Admin: 09/05/18 05:33 Dose: 50 mcg Documented by: [id number] Admin: 09/04/18 06:42 Dose: 50 mcg Documented by: [id number] Admin: 09/03/18 06:25 Dose: 50 mcg Documented by: [id number] Admin: 09/02/18 06:18 Dose: 50 mcg Documented by: [id number] Admin: 09/01/18 06:03 Dose: 50 mcg Documented by: [id number] Admin: 08/31/18 06:07 Dose: 50 mcg Documented by: [id number] Lisinopril (Zestril) 20 mg PO QAM [facility] Stop: 10/12/18 08:59 Last Admin: 09/12/18 09:37 Dose: Not Given Documented by: [id number] Morphine Sulfate (Morphine Sulfate) 2 mg IV Q2H PRN PRN Reason: Pain Stop: 09/26/18 13:50 Last Admin: 09/13/18 02:40 Dose: 2 mg Documented by: [id number] Admin: 09/12/18 22:07 Dose: 2 mg Documented by: [id number] Admin: 09/12/18 19:23 Dose: 2 mg Documented by: [id number] Admin: 09/12/18 16:35 Dose: 2 mg Documented by: [id number] Dulera 100mcg/5mcg~ Non-Formulary Patient's Own Med 2 ea PO BID NYDIA Stop: 10/09/18 20:59 Last Admin: 09/12/18 20:28 Dose: 2 puffs Documented by: [id number] Admin: 09/12/18 09:37 Dose: Not Given Documented by: [id number] Admin: 09/11/18 21:01 Dose: Not Given Documented by: [id number] Admin: 09/11/18 10:34 Dose: Not Given Documented by: [id number] Admin: 09/10/18 21:53 Dose: 1 puffs Documented by: [id number] Admin: 09/10/18 08:39 Dose: 2 puffs Documented by: [id number] Admin: 09/09/18 21:14 Dose: Not Given Documented by: [id number] Prednisone (Prednisone) 10 mg PO QAM NYDIA Stop: 10/03/18 08:59 Last Admin: 09/03/18 08:48 Dose: 10 mg Documented by: [id number] Rosuvastatin Calcium (Crestor) 10 mg PO DAILY [facility] Stop: 09/30/18 08:59 Last Admin: 09/12/18 09:36 Dose: Not Given Documented by: [id number] Admin: 09/11/18 09:20 Dose: Not Given Documented by: [id number] Admin: 09/10/18 08:39 Dose: 10 mg Documented by: [id number] Admin: 09/09/18 09:14 Dose: 10 mg Documented by: [id number] Admin: 09/08/18 08:08 Dose: 10 mg Documented by: [id number] Admin: 09/07/18 11:56 Dose: Not Given Documented by: [id number] Admin: 09/06/18 08:47 Dose: 10 mg Documented by: [id number] Admin: 09/05/18 07:55 Dose: 10 mg Documented by: [id number] Admin: 09/04/18 08:18 Dose: 10 mg Documented by: [id number] Admin: 09/03/18 08:00 Dose: 10 mg Documented by: [id number] Admin: 09/02/18 08:07 Dose: 10 mg Documented by: [id number] Admin: 09/01/18 09:50 Dose: Not Given Documented by: [id number] Admin: 08/31/18 08:24 Dose: 10 mg Documented by: [id number] Fluticasone/Salmeterol (Advair Diskus 100/50) 1 puffs INH BID [facility] Stop: 10/03/18 13:19 Last Admin: 09/12/18 19:47 Dose: Not Given Documented by: [id number] Admin: 09/12/18 09:36 Dose: Not Given Documented by: [id number] Admin: 09/11/18 21:00 Dose: Not Given Documented by: [id number] Admin: 09/11/18 09:20 Dose: Not Given Documented by: [id number] Admin: 09/10/18 21:50 Dose: 1 puffs Documented by: [id number] Admin: 09/10/18 08:40 Dose: 1 puffs Documented by: [id number] Admin: 09/09/18 21:11 Dose: 1 puffs Documented by: [id number] Admin: 09/09/18 09:14 Dose: 1 puffs Documented by: [id number] Admin: 09/08/18 20:52 Dose: Not Given Documented by: [id number] Admin: 09/08/18 08:11 Dose: Not Given Documented by: [id number] Admin: 09/07/18 21:12 Dose: Not Given Documented by: [id number] Admin: 09/07/18 08:29 Dose: Not Given Documented by: [id number] Admin: 09/06/18 20:46 Dose: Not Given Documented by: [id number] Admin: 09/06/18 08:47 Dose: Not Given Documented by: [id number] Admin: 09/05/18 20:53 Dose: Not Given Documented by: [id number] Admin: 09/05/18 07:55 Dose: 1 puffs Documented by: [id number] Admin: 09/04/18 20:15 Dose: 1 puffs Documented by: [id number] Admin: 09/04/18 08:17 Dose: 1 puffs Documented by: [id number] Admin: 09/03/18 21:20 Dose: 1 puffs Documented by: [id number] Admin: 09/03/18 16:57 Dose: 1 puffs Documented by: [id number]
[2018-09-13] MEDS ORDERED: PROPOFOL 1,000 MG/100 ML VIAL IV PRN (04:23)
--- NOTE | 2018-09-13 04:25 | Procedure Note ---
Procedure Note Date of Service September 13, 2018 APC: Sharath Allen PA-C. Attending: Dr. Saldana A time-out was completed verifying correct patient, procedure, site, positioning. Patient was evaluated and required intubation for ARDS with need for airway management after failing BiPAP. Sedative agent used: Etomidate, Versed Paralysis agent used: Succinylcholine Emergent consent was implied given patients rapidly declining clinical status and need for airway protection. Lengthy conversation had at bedside with patient and family as she now wishes to change her CODE STATUS and be intubated. She is requesting emergent intubation. Based in the patient's FiO2 requirement and high BiPAP settings, the patient certainly is in need of emergent airway protection since she has changed her CODE STATUS. Because of this, emergent consent is applied. Consents were discussed at great length with patient and daughter at bedside who are both in agreement provide verbal consent. The patient was prepared in the appropriate fashion. Sedation was achieved utilizing Etomidate and Versed and succinylcholine, per Dr. Rowe administration. The patient was easily ventilated using [id number] to achieve adequate oxygenation. A 7.5 [place] endotracheal tube was placed utilizing Glidescope to 21 cm at the lip. The stylette was removed and balloon was inflated with 10mL of air. Appropriate Colorimetric change was appreciated. Bilateral breath sounds were heard without air sounds in the abdomen. Dr. Rowe was present for the entire procedure. Post Intubation Chest X-ray confirms placement without pneumothorax. Appropriate tube placement noted. Patient tolerated the procedure well and there were no immediate complications. Coding CPT Codes Resuscitation - Resuscitation: Endotracheal Intubation, emergency ([id number])
[2018-09-13] MEDS ORDERED: PROPOFOL IV EMULSION 10 MG/ML 100 ML VIAL IV ONE (04:26)
[2018-09-13 04:49] LABS: Albumin Level 2.2 gm/dl (3.4-5.0); BUN Creatinine Ratio 24.7 (10-20); Bilirubin Direct 0.3 mg/dl (0-0.2); Calcium 8.1 mg/dl (8.5-10.1); Creatinine Clr Calc Pharmacy 25.9 ml/min; Est GFR (African American) 31.1; Est GFR (Non-African American) 26.8; Magnesium 2.1 mg/dl (1.8-2.4); Partial Thromboplastin Ratio 2.8; Potassium 3.8 mmol/L (3.5-5.1)
[2018-09-13 04:50] LABS: Bilirubin,Total 0.6 mg/dl (0.2-1)
[2018-09-13 04:51] LABS: Phosphorus 5.3 mg/dl (2.5-4.9)
[2018-09-13] MEDS ORDERED: NOREPINEPHRINE BIT INJ 8 MG in DEXTROSE 5% 500 ML IV PRN (04:54)
[2018-09-13] MEDS: INSULIN ASPART 100 UNITS/ML 3 ML PEN SC SCH ×6 (05:00→21:32)
[2018-09-13] MEDS: methylPREDNISolone 80 MG in SYRINGE 0 ML IV SCH ×3 (05:04→21:29)
[2018-09-13 05:07] LABS: Basophils # (auto) 0.01 K/uL (0-0.2); Basophils % (auto) 0.1 %; Hematocrit (blood only) 25.6 % (37-47); Hemoglobin 8.7 g/dL (12.0-16.0); Immature Granulocytes # (auto) 0.04 K/uL (0.00-0.02); Immature Granulocytes % (auto) 0.3 %; Lymphocytes % (auto) 0.7 %; Mean Corpuscular Volume 93.8 fL (80-100); Mean Platelet Volume 10.8 fL (7.4-10.4); Monocytes # (auto) 0.07 K/uL (0.11-0.59); Monocytes % (auto) 0.5 %; Neutrophils # (auto) 13.93 K/uL (1.4-6.5); Neutrophils % (auto) 98.4 %; Platelet Count 183 K/uL (130-400); RDW Coefficient of Variation 12.9 % (11.5-14.5); RDW Standard Deviation 43.8 fL (36.4-46.3); Red Blood Count 2.73 M/uL (4.2-5.4); White Blood Count 14.15 K/uL (4.8-10.8)
--- NOTE | 2018-09-13 05:14 | Procedure Note ---
Procedure Note Date of Service September 13, 2018 Procedure: Arterial Line Placement Attending: Dr. Sadlana APC: Sharath Allen PA-C Indication: Monitoring on Pressors Anesthesia: None Consent implied in the setting of need for frequent ABGs status post intubation and now requiring vasoactive medications. Procedure was discussed with yue wiley's daughter who was present at bedside and is in agreement at this time. Indication, risks, and benefits were explained at length. A time-out was completed verifying correct patient, procedure, site, positioning, and implant(s) or special equipment if applicable. Allens test was performed to ensure adequate perfusion. Patients LEFT wrist was prepped and draped in the usual sterile fashion. Ultrasound guidance was used to aid needle placement. A 20g Arrow arterial line was introduced into the LEFT Radial artery. Catheter was threaded, and the needle was removed with appropriate blood return. Good waveform was observed. The patient tolerated the procedure well. Confirmation of placement with ultrasound. Blood Loss: Minimal Complications: None Procedural Ultrasound Guidance: Procedure Date: 09/13/2018 Indication: Frequent ABGs, Pressors, Frequent Labs Attending: Dr. Zamudio APC: Sharath Allen PA-C Artery Identified: YES Line confirmed in Artery with ultrasound: YES Complications: NONE Patient tolerated procedure: WELL Coding CPT Codes Tubes, Drains, and Vasc Access - Tubes, Drains, and Vasc Access: Place Catheter In Artery ([id number])
[2018-09-13] MEDS: fentaNYL citrate 100 MCG/2 ML VIAL IV PRN ×6 (05:27→22:11)
[2018-09-13 06:36] LABS: iSTAT Art Bld Gas pCO2 Correct 39 mmHg (35-46); iSTAT Arterial Blood Gas HCO3 30 meg/L (19-24); iSTAT Arterial Blood Gas pCO2 40 mmHg (35-46); iSTAT Arterial Blood Gas pH 7.48 (7.35-7.45); iSTAT Carbon Dioxide 31 mEq/l (24-31); iSTAT Site Art Line
[2018-09-13] MEDS: LEVOTHYROXINE SODIUM 50 MCG TABLET PO SCH (06:40)
--- NOTE | 2018-09-13 06:51 | XRay Report ---
XR chest 1V portable CLINICAL HISTORY: s/p tube tube position COMPARISON STUDY: 09/12/2018 FINDINGS: Similar findings of pulmonary edema. Central catheter placed in superior vena cava. Endotra cheal tube 3 cm above the alfonso. Nasogastric tube within the stomach. IMPRESSION: 1. Stable findings of pulmonary edema. 2. Tubes and lines in acceptable position as noted. The above report was generated using voice recognition software. It may contain grammatical, syntax or spelling errors. Electronically signed by: Franklin Randle M.D. 09/13/2018 6:50 AM
--- NOTE | 2018-09-13 07:18 | Critical Care Progress Note ---
Date of Service September 13, 2018 Assessment & Plan (1) Admitted to intensive care unit: María Kunz is a 83 y/o female with hx of chronic respiratory failure secondary to pulmonary fibrosis. Original visit was for removal of infected pace maker. Neuro - Sedation with Versad Cardiac/Vascular - had an infected pacemaker which required removal. - currently bradycardic in 50s - Mobitz type 2 second degree heart block - Dopamine discontinued - Hold home anti-hypertensives Pulm Currently acute on chronic respiratory failure. 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 . Requires 2L O2 at home. - diagnosed on 09/05/18 with PEs in RLL, currently on Heparin drip. - currently appears to have acute lung injury requiring mechanical ventilation - maintain sats below 98% - Vent settings: * Mode: PRVC * 16 min/ 44mL/ 8 peep/ 50% - Pulmonary fibrosis with pulmonary edema that was treated with diuretics. - Currently on Solu-medrol 80mg q8h. GI - NG tube - Diet: Enteral Nutritional Formula [impact 1.0 sravani] 1,000mL OG UD Nataly - Famotidine 20mg IV ordered for GI ppx Renal/Lytes - Hyponatremic value this AM of 128, has been hyponatremic for past 6 days with values ranging 124-128 - Elevated creatinine this AM of 1.75 supports LUCIA, recent values not greater than 0.90. * Nephro consult ordered for eval/recs of new LUCIA, possible AIN vs ATN * Will order, renal duplex since PEs and to rule out infarction * Urine Eosinophils for AIN; Urine Electrolytes ordered to measure FENa. - IVFs Normosol @ 80mL/hr - I&O: D=[id number] - R=[id number]; 24-hr net -2045 - Ordered 500cc bolus this AM with recheck BMP for 4pm today - repeat LFTs for AM RADHA Molina Yes Endo DM2 - Insulin Aspart * BSG range 120-160 * CF: 20 * INS:CHO - 1 unit per 6 CHO Hypothyroid * Synthroid 25mcg IV Heme - Leukocytosis improved from 24.87 to today's AM value of 14.15. - Hgb 8.7 - Platelets 183 ID Wound culture positive (08/31) for Pseudomonas and MSSA * treating with Cefepime + Daptomycin - Blood cultures negative drawn on 7/18 - Will order repeat blood cultures - Urine Legionella Ag pending Lines Art line: left right single lumen picc right 18g peripheral IV - current with restraints as well DVT ppx - Heparin drip Resuscitation status - Full Code Supervising Physician Co-Signing Physician Notes Dr. Zabala was resident physician during care of patient. I separately evaluated patient for eid portions of the history and the exam. I was present during the critical portion of medical decision making, and I discussed the case with the resident. I generally agree with the findings and plan. Acute hypoxic respiratory failure with significant ILD at baseline. Had extensive discussion with the patient's daughter this morning both realize that the patient is very critical and there is a high likelihood for a poor outcome. Decreasing oxygen requirement hopefully we will be able to move towards extubation the next 24 to 48 hours. I have personally spent 55 minutes of critical care time in the direct management of this patient. This is a life/limb threatening event. This includes time spent evaluating patient, direct bedside care, chart review, placing orders, interpretation of diagnostic studies, discussion with consultants, patient, and/or family members regarding treatment decisions, as well as other required patient management activities. This time is exclusive of all separately billable procedures, and teaching time and separate from and in addition to any other critical care service time. Subjective Caveat: History limited by mechanical ventilation with sedation. Appears resting comfortably this morning. Family member at bedside. As discussed with overnight team, patient elected for intubation and made code status full code overnight. Physical Exam Physical Exam: Caveat: Physical exam limited by - unable to assess secondary to mechanical ventilation with sedation Constitutional: + ill appearing Eyes: eyes closed Neck: trachea midline; no neck crepitus Respiratory: mechanically ventilated, anterior lung andrea appear clear to auscultation Cardiovascular: Rate/Rhythm: regular rhythm and + bradycardic Extremities: no pedal edema and no edema Gastrointestinal (Abdomen): Inspection/Auscultation: abdomen not distended Percussion/Palpation: abdomen soft Skin: no rashes, warm and dry Neurologic: unable to assess secondary to mechanical ventilation with sedation Psychiatric: unable to assess secondary to mechanical ventilation with sedation Results & Data Vital Signs (Past 12 Hours) Vital Signs Temp Pulse Pulse Resp BP Pulse Ox Pulse Ox 09/13/18 06:22 50 L 16 100 09/13/18 06:00 51 L 105/45 L 100 09/13/18 05:55 50 L 108/45 L 100 09/13/18 05:50 51 L 105/44 L 09/13/18 05:45 51 L 107/41 L 09/13/18 05:40 48 L 108/41 L 100 09/13/18 05:35 49 L 111/41 L 09/13/18 05:30 51 L 113/41 L 98 09/13/18 05:25 51 L 119/44 L 09/13/18 05:20 56 L 119/43 L 09/13/18 05:15 58 L 127/50 L 100 09/13/18 05:10 59 L 132/49 L 09/13/18 05:05 58 L 126/51 L 09/13/18 05:01 59 L 113/54 L 100 09/13/18 05:00 58 L 121/41 L 09/13/18 04:55 49 L 115/39 L 09/13/18 04:50 50 L 103/40 L 09/13/18 04:45 36.7 C 45 L 107/37 L 09/13/18 04:40 45 L 89/37 L 09/13/18 04:37 44 L 84/37 L 09/13/18 04:35 44 L 95/41 L 09/13/18 04:33 45 L 95/40 L 100 09/13/18 04:32 47 L 99/42 L 09/13/18 04:30 49 L 18 104/43 L 09/13/18 04:25 58 L 112/65 99 09/13/18 04:22 51 L 119/42 L 09/13/18 04:15 60 129/48 L 94 09/13/18 04:00 62 142/53 H 100 09/13/18 03:30 62 26 H 135/69 99 09/13/18 03:00 61 25 H 144/56 H 100 09/13/18 02:30 61 24 141/58 H 100 09/13/18 02:18 59 L 31 H 09/13/18 02:16 59 L 31 H 100 09/13/18 02:00 58 L 23 138/55 L 100 09/13/18 01:30 56 L 19 137/58 L 100 09/13/18 01:00 55 L 14 128/53 L 97 09/13/18 00:30 59 L 33 H 137/59 L 100 09/13/18 00:03 60 26 H 100 09/13/18 00:01 36.9 C 60 31 H 136/86 100 09/13/18 00:00 60 33 H 136/86 97 09/12/18 23:35 60 35 H 100 09/12/18 23:30 57 L 20 129/56 L 100 09/12/18 23:00 55 L 22 128/53 L 98 09/12/18 22:30 58 L 31 H 132/59 L 98 09/12/18 22:00 59 L 33 H 140/62 100 09/12/18 21:30 59 L 26 H 139/65 99 09/12/18 21:00 60 21 153/68 H 99 09/12/18 20:30 58 L 29 H 138/66 99 09/12/18 20:00 61 32 H 144/63 H 100 94 09/12/18 19:50 61 28 H 99 09/12/18 19:37 60 31 H 99 09/12/18 19:30 36.5 C 61 34 H 139/76 99 Laboratory Results Laboratory Results - last 24 hr 09/12/18 09/12/18 09/12/18 09:08 12:55 16:30 WBC RBC Hgb Hct MCV MCH MCHC RDW Std Deviation RDW Coeff of Gabriel Plt Count MPV Immature Gran % (Auto) Neut % (Auto) Lymph % (Auto) [place] % (Auto) Eos % (Auto) Baso % (Auto) Immature Gran # (Auto) Neut # (Auto) Lymph # (Auto) [place] # (Auto) Eos # (Auto) Baso # (Auto) APTT PTT Ratio Sample Site POC pH POC pCO2 POC pO2 POC HCO3 POC Total CO2 POC Base Excess ABG pH (Temp Correct) ABG pCO2 (Temp Corrct POC ABG pO2 at Pt Temp POC ABG O2 Sat Wilian Test O2 Delivery Device POC O2 Rate Minute Ventilation POC FiO2 Tidal Volume PEEP IPAP Sodium Potassium Chloride Carbon Dioxide Anion Gap BUN Creatinine Est Cr Clr Drug Dosing Est GFR ( Amer) Est GFR (Non-Af Amer) BUN/Creatinine Ratio Glucose POC Glucose 149 H 166 H Calcium Phosphorus Magnesium Total Bilirubin Direct Bilirubin AST ALT Alkaline Phosphatase Total Protein Albumin Nasal Screen MRSA (PCR) Negative Urine Legionella Ag 09/12/18 09/12/18 09/13/18 20:21 23:20 03:37 WBC RBC Hgb Hct MCV MCH MCHC RDW Std Deviation RDW Coeff of Gabriel Plt Count MPV Immature Gran % (Auto) Neut % (Auto) Lymph % (Auto) [place] % (Auto) Eos % (Auto) Baso % (Auto) Immature Gran # (Auto) Neut # (Auto) Lymph # (Auto) [place] # (Auto) Eos # (Auto) Baso # (Auto) APTT PTT Ratio Sample Site R Radial POC pH 7.35 POC pCO2 56 H POC pO2 199 H POC HCO3 31 H POC Total CO2 32 H POC Base Excess 5.0 H ABG pH (Temp Correct) 7.355 ABG pCO2 (Temp Corrct 55 H POC ABG pO2 at Pt Temp 196 POC ABG O2 Sat 100.0 H Wilian Test Pass O2 Delivery Device BIPAP POC O2 Rate 12 Minute Ventilation POC FiO2 100 Tidal Volume PEEP IPAP 16 Sodium Potassium Chloride Carbon Dioxide Anion Gap BUN Creatinine Est Cr Clr Drug Dosing Est GFR ( Amer) Est GFR (Non-Af Amer) BUN/Creatinine Ratio Glucose POC Glucose 151 H 169 H Calcium Phosphorus Magnesium Total Bilirubin Direct Bilirubin AST ALT Alkaline Phosphatase Total Protein Albumin Nasal Screen MRSA (PCR) Urine Legionella Ag 09/13/18 09/13/18 09/13/18 04:14 04:14 04:14 WBC 14.15 H D RBC 2.73 L Hgb 8.7 L Hct 25.6 L MCV 93.8 MCH 31.9 MCHC 34.0 RDW Std Deviation 43.8 RDW Coeff of Gabriel 12.9 Plt Count 183 MPV 10.8 H Immature Gran % (Auto) 0.3 Neut % (Auto) 98.4 Lymph % (Auto) 0.7 Refug[place] % (Auto) 0.5 Eos % (Auto) 0.0 Baso % (Auto) 0.1 Immature Gran # (Auto) 0.04 H Neut # (Auto) 13.93 H Lymph # (Auto) 0.10 L [place] # (Auto) 0.07 L Eos # (Auto) 0.00 Baso # (Auto) 0.01 APTT 75.0 H* PTT Ratio 2.8 Sample Site POC pH POC pCO2 POC pO2 POC HCO3 POC Total CO2 POC Base Excess ABG pH (Temp Correct) ABG pCO2 (Temp Corrct POC ABG pO2 at Pt Temp POC ABG O2 Sat Wilian Test O2 Delivery Device POC O2 Rate Minute Ventilation POC FiO2 Tidal Volume PEEP IPAP Sodium 128 L Potassium 3.8 Chloride 87 L Carbon Dioxide 28 Anion Gap 13.0 H BUN 43 H D Creatinine 1.75 H D Est Cr Clr Drug Dosing 25.9 Est GFR ( Amer) 31.1 Est GFR (Non-Af Amer) 26.8 BUN/Creatinine Ratio 24.7 H Glucose 186 H POC Glucose Calcium 8.1 L Phosphorus 5.3 H D Magnesium 2.1 Total Bilirubin 0.6 Direct Bilirubin 0.3 H AST 23 ALT 23 Alkaline Phosphatase 68 Total Protein 6.0 L Albumin 2.2 L Nasal Screen MRSA (PCR) Urine Legionella Ag 09/13/18 09/13/18 09/13/18 05:20 06:20 06:25 WBC RBC Hgb Hct MCV MCH MCHC RDW Std Deviation RDW Coeff of Gabriel Plt Count MPV Immature Gran % (Auto) Neut % (Auto) Lymph % (Auto) [place] % (Auto) Eos % (Auto) Baso % (Auto) Immature Gran # (Auto) Neut # (Auto) Lymph # (Auto) [place] # (Auto) Eos # (Auto) Baso # (Auto) APTT PTT Ratio Sample Site Art Line POC pH 7.48 H POC pCO2 40 POC pO2 255 H POC HCO3 30 H POC Total CO2 31 POC Base Excess 7.0 H ABG pH (Temp Correct) 7.490 H ABG pCO2 (Temp Corrct 39 POC ABG pO2 at Pt Temp 252 POC ABG O2 Sat 100.0 H Wilian Test NA O2 Delivery Device Ventilator POC O2 Rate 18 Minute Ventilation 8.1 POC FiO2 Tidal Volume 450 PEEP 8 IPAP Sodium Potassium Chloride Carbon Dioxide Anion Gap BUN Creatinine Est Cr Clr Drug Dosing Est GFR ( Amer) Est GFR (Non-Af Amer) BUN/Creatinine Ratio Glucose POC Glucose 193 H Calcium Phosphorus Magnesium Total Bilirubin Direct Bilirubin AST ALT Alkaline Phosphatase Total Protein Albumin Nasal Screen MRSA (PCR) Urine Legionella Ag Pending 09/13/18 07:40 WBC RBC Hgb Hct MCV MCH MCHC RDW Std Deviation RDW Coeff of Gabriel Plt Count MPV Immature Gran % (Auto) Neut % (Auto) Lymph % (Auto) [place] % (Auto) Eos % (Auto) Baso % (Auto) Immature Gran # (Auto) Neut # (Auto) Lymph # (Auto) [place] # (Auto) Eos # (Auto) Baso # (Auto) APTT PTT Ratio Sample Site POC pH POC pCO2 POC pO2 POC HCO3 POC Total CO2 POC Base Excess ABG pH (Temp Correct) ABG pCO2 (Temp Corrct POC ABG pO2 at Pt Temp POC ABG O2 Sat Wilian Test O2 Delivery Device POC O2 Rate Minute Ventilation POC FiO2 Tidal Volume PEEP IPAP Sodium Potassium Chloride Carbon Dioxide Anion Gap BUN Creatinine Est Cr Clr Drug Dosing Est GFR ( Amer) Est GFR (Non-Af Amer) BUN/Creatinine Ratio Glucose POC Glucose 174 H Calcium Phosphorus Magnesium Total Bilirubin Direct Bilirubin AST ALT Alkaline Phosphatase Total Protein Albumin Nasal Screen MRSA (PCR) Urine Legionella Ag Diagnostic Findings 09/13/18 3am CXR IMPRESSION: 1. Stable findings of pulmonary edema. 2. Tubes and lines in acceptable position as noted. Medications Administered Acetaminophen (Tylenol) 650 mg PO Q4H PRN PRN Reason: Pain or Fever Stop: 09/30/18 03:45 Last Admin: 09/10/18 22:01 Dose: 650 mg Documented by: [id number] Admin: 09/09/18 23:45 Dose: 650 mg Documented by: [id number] Admin: 09/06/18 02:07 Dose: 650 mg Documented by: [id number] Admin: 09/04/18 21:25 Dose: 650 mg Documented by: [id number] Admin: 08/31/18 20:14 Dose: 650 mg Documented by: [id number] Admin: 08/31/18 08:26 Dose: 650 mg Documented by: [id number] Hydrox/Mg Hydrox/Simethicone (Maalox) 30 ml PO Q6H PRN PRN Reason: Dyspepsia Stop: 10/07/18 09:11 Last Admin: 09/07/18 09:39 Dose: 30 ml Documented by: [id number] Amlodipine Besylate (Norvasc) 10 mg PO DAILY NATALY Stop: 10/05/18 08:59 Last Admin: 09/12/18 09:37 Dose: Not Given Documented by: [id number] Admin: 09/11/18 09:21 Dose: Not Given Documented by: [id number] Admin: 09/10/18 08:39 Dose: 10 mg Documented by: [id number] Admin: 09/09/18 09:14 Dose: 10 mg Documented by: [id number] Admin: 09/08/18 08:08 Dose: 10 mg Documented by: [id number] Admin: 09/07/18 08:53 Dose: 10 mg Documented by: [id number] Admin: 09/06/18 08:55 Dose: 10 mg Documented by: [id number] Admin: 09/05/18 07:57 Dose: 10 mg Documented by: [id number] Artificial Tears (Artificial Tears) 1 drops OP HS NATALY Stop: 09/30/18 20:59 Last Admin: 09/12/18 20:27 Dose: 1 drops Documented by: [id number] Admin: 09/11/18 21:00 Dose: Not Given Documented by: [id number] Admin: 09/10/18 21:52 Dose: Not Given Documented by: [id number] Admin: 09/09/18 21:35 Dose: 1 drops Documented by: [id number] Admin: 09/08/18 20:53 Dose: 1 drops Documented by: [id number] Admin: 09/07/18 21:13 Dose: 1 drops Documented by: [id number] Admin: 09/06/18 20:48 Dose: 1 drops Documented by: [id number] Admin: 09/05/18 20:53 Dose: 1 drops Documented by: [id number] Admin: 09/04/18 20:15 Dose: 1 drops Documented by: [id number] Admin: 09/03/18 21:22 Dose: 1 drops Documented by: [id number] Admin: 09/02/18 20:53 Dose: 1 drops Documented by: [id number] Admin: 09/01/18 20:11 Dose: Not Given Documented by: [id number] Admin: 08/31/18 20:16 Dose: 1 drops Documented by: [id number] Clotrimazole (Mycelex) 10 mg BUCCAL [id number] NATALY Stop: 09/19/18 18:59 Last Admin: 09/13/18 09:44 Dose: Not Given Documented by: [id number] Admin: 09/13/18 08:48 Dose: Not Given Documented by: [id number] Admin: 09/12/18 22:24 Dose: Not Given Documented by: [id number] Admin: 09/12/18 19:26 Dose: Not Given Documented by: [id number] Admin: 09/12/18 14:18 Dose: Not Given Documented by: [id number] Admin: 09/12/18 12:39 Dose: Not Given Documented by: [id number] Admin: 09/12/18 07:32 Dose: Not Given Documented by: [id number] Admin: 09/11/18 23:08 Dose: Not Given Documented by: [id number] Admin: 09/11/18 19:37 Dose: Not Given Documented by: [id number] Admin: 09/11/18 14:26 Dose: Not Given Documented by: [id number] Admin: 09/11/18 11:41 Dose: Not Given Documented by: [id number] Admin: 09/11/18 09:20 Dose: Not Given Documented by: [id number] Admin: 09/10/18 21:53 Dose: 10 mg Documented by: [id number] Admin: 09/10/18 18:58 Dose: 10 mg Documented by: [id number] Admin: 09/10/18 16:02 Dose: 10 mg Documented by: [id number] Admin: 09/10/18 12:14 Dose: 10 mg Documented by: [id number] Admin: 09/10/18 08:39 Dose: 10 mg Documented by: [id number] Admin: 09/09/18 23:47 Dose: Not Given Documented by: [id number] Admin: 09/09/18 19:29 Dose: 10 mg Documented by: [id number] Docusate Sodium (Colace) 100 mg PO DAILY NATALY Stop: 10/13/18 08:59 Last Admin: 09/13/18 09:49 Dose: 100 mg Documented by: [id number] Fentanyl Citrate (Fentanyl Citrate) 50 mcg IV Q2H PRN PRN Reason: Moderate Pain (4,5,6) Stop: 09/27/18 04:22 Last Admin: 09/13/18 05:27 Dose: 50 mcg Documented by: [id number] Promethazine HCl 12.5 mg/ (Sodium Chloride) 50.5 mls @ 202 mls/hr IV Q6H PRN PRN Reason: Nausea And Vomiting Stop: 09/30/18 00:49 Last Infusion: 09/07/18 12:07 Dose: 0 mls/hr Documented by: [id number] Admin: 09/07/18 10:41 Dose: 202 mls/hr Documented by: [id number] Infusion: 08/31/18 08:50 Dose: 0 mls/hr Documented by: [id number] Admin: 08/31/18 08:35 Dose: 202 mls/hr Documented by: [id number] Heparin Sodium/Dextrose (Heparin Sodium/Dextrose) 25,000 units in 500 mls @ 16 mls/hr IV .Q24H NATALY; Protocol Stop: 10/05/18 15:29 Last Titration: 09/13/18 07:07 Dose: 800 units/hr, 16 mls/hr Documented by: [id number] Cosigned by: [id number] Titration: 09/13/18 05:41 Dose: 800 units/hr, 16 mls/hr Documented by: [id number] Cosigned by: [id number] Admin: 09/12/18 23:13 Dose: 950 units/hr, 19 mls/hr Documented by: [id number] Cosigned by: [id number] Titration: 09/12/18 23:13 Dose: 950 units/hr, 19 mls/hr Documented by: [id number] Cosigned by: [id number] Titration: 09/12/18 19:13 Dose: 950 units/hr, 19 mls/hr Documented by: [id number] Cosigned by: [id number] Titration: 09/12/18 08:42 Dose: 950 units/hr, 19 mls/hr Documented by: [id number] Cosigned by: [id number] Titration: 09/12/18 07:00 Dose: 950 units/hr, 19 mls/hr Documented by: [id number] Cosigned by: [id number] Admin: 09/11/18 22:47 Dose: 950 units/hr, 19 mls/hr Documented by: [id number] Cosigned by: [id number] Titration: 09/11/18 22:47 Dose: 950 units/hr, 19 mls/hr Documented by: [id number] Cosigned by: [id number] Titration: 09/11/18 15:16 Dose: 950 units/hr, 19 mls/hr Documented by: [id number] Cosigned by: [id number] Titration: 09/11/18 07:57 Dose: 950 units/hr, 19 mls/hr Documented by: [id number] Cosigned by: [id number] Titration: 09/11/18 07:22 Dose: 1,000 units/hr, 20 mls/hr Documented by: [id number] Cosigned by: [id number] Titration: 09/10/18 23:10 Dose: 1,000 units/hr, 20 mls/hr Documented by: [id number] Cosigned by: [id number] Admin: 09/10/18 22:37 Dose: 1,000 units/hr, 20 mls/hr Documented by: [id number] Cosigned by: [id number] Titration: 09/10/18 22:37 Dose: 1,000 units/hr, 20 mls/hr Documented by: [id number] Cosigned by: [id number] Titration: 09/10/18 15:19 Dose: 1,000 units/hr, 20 mls/hr Documented by: [id number] Cosigned by: [id number] Titration: 09/10/18 07:09 Dose: 1,000 units/hr, 20 mls/hr Documented by: [id number] Cosigned by: [id number] Admin: 09/09/18 23:47 Dose: 1,000 units/hr, 20 mls/hr Documented by: [id number] Cosigned by: [id number] Titration: 09/09/18 23:45 Dose: 1,000 units/hr, 20 mls/hr Documented by: [id number] Cosigned by: [id number] Titration: 09/09/18 23:15 Dose: 1,000 units/hr, 20 mls/hr Documented by: [id number] Cosigned by: [id number] Titration: 09/09/18 15:13 Dose: 1,000 units/hr, 20 mls/hr Documented by: [id number] Cosigned by: [id number] Titration: 09/09/18 07:23 Dose: 1,000 units/hr, 20 mls/hr Documented by: [id number] Cosigned by: [id number] Admin: 09/09/18 03:40 Dose: 1,000 units/hr, 20 mls/hr Documented by: [id number] Cosigned by: [id number] Titration: 09/09/18 03:40 Dose: 1,000 units/hr, 20 mls/hr Documented by: [id number] Cosigned by: [id number] Titration: 09/08/18 14:34 Dose: 1,000 units/hr, 20 mls/hr Documented by: [id number] Cosigned by: [id number] Titration: 09/08/18 08:00 Dose: 1,000 units/hr, 20 mls/hr Documented by: [id number] Cosigned by: [id number] Titration: 09/08/18 07:00 Dose: 0 units/hr, 0 mls/hr Documented by: [id number] Cosigned by: [id number] Admin: 09/08/18 03:54 Dose: 1,150 units/hr, 23 mls/hr Documented by: [id number] Cosigned by: [id number] Titration: 09/08/18 03:54 Dose: 1,150 units/hr, 23 mls/hr Documented by: [id number] Cosigned by: [id number] Admin: 09/07/18 07:02 Dose: 1,150 units/hr, 23 mls/hr Documented by: [id number] Cosigned by: [id number] Titration: 09/07/18 07:02 Dose: 1,150 units/hr, 23 mls/hr Documented by: [id number] Cosigned by: [id number] Titration: 09/06/18 19:07 Dose: 1,150 units/hr, 23 mls/hr Documented by: [id number] Cosigned by: [id number] Admin: 09/06/18 09:36 Dose: 1,150 units/hr, 23 mls/hr Documented by: [id number] Cosigned by: [id number] Titration: 09/06/18 09:36 Dose: 1,150 units/hr, 23 mls/hr Documented by: [id number] Cosigned by: [id number] Titration: 09/06/18 07:16 Dose: 1,150 units/hr, 23 mls/hr Documented by: [id number] Cosigned by: [id number] Admin: 09/05/18 15:37 Dose: 1,200 units/hr, 24 mls/hr Documented by: [id number] Cosigned by: [id number] Methylprednisolone 80 mg/ (Syringe) 1.28 mls @ 1.5 mls/min IV Q8H NATALY Stop: 10/12/18 21:59 Last Admin: 09/13/18 05:04 Dose: 1.5 mls/min Documented by: [id number] Admin: 09/12/18 22:04 Dose: 1.5 mls/min Documented by: [id number] Parenteral Electrolytes (Normosol-R) 1,000 mls @ 80 mls/hr IV .[id number] NATALY Stop: 10/13/18 08:59 Last Admin: 09/13/18 08:57 Dose: 80 mls/hr Documented by: [id number] Insulin Aspart (Novolog Flexpen) 0 units SC Q4H NATALY; Protocol Stop: 10/09/18 16:29 Last Admin: 09/13/18 09:49 Dose: 1 units Documented by: [id number] Cosigned by: [id number] Ipratropium [place] (Atrovent 0.02% 0.5mg/2.5ml) 0.5 mg INH Q6R NATALY Stop: 10/03/18 13:59 Last Admin: 09/13/18 07:07 Dose: 0.5 mg Documented by: [id number] Admin: 09/13/18 02:15 Dose: 0.5 mg Documented by: [id number] Admin: 09/12/18 19:50 Dose: 0.5 mg Documented by: [id number] Admin: 09/12/18 15:17 Dose: 0.5 mg Documented by: [id number] Admin: 09/12/18 07:15 Dose: 0.5 mg Documented by: [id number] Admin: 09/12/18 01:29 Dose: 0.5 mg Documented by: [id number] Admin: 09/11/18 18:59 Dose: 0.5 mg Documented by: [id number] Admin: 09/11/18 14:05 Dose: 0.5 mg Documented by: [id number] Admin: 09/11/18 07:12 Dose: 0.5 mg Documented by: [id number] Admin: 09/11/18 01:57 Dose: 0.5 mg Documented by: [id number] Admin: 09/10/18 19:19 Dose: 0.5 mg Documented by: [id number] Admin: 09/10/18 13:53 Dose: 0.5 mg Documented by: [id number] Admin: 09/10/18 07:12 Dose: 0.5 mg Documented by: [id number] Admin: 09/10/18 02:37 Dose: 0.5 mg Documented by: [id number] Admin: 09/09/18 18:50 Dose: 0.5 mg Documented by: [id number] Admin: 09/09/18 14:09 Dose: 0.5 mg Documented by: [id number] Admin: 09/09/18 07:19 Dose: 0.5 mg Documented by: [id number] Admin: 09/09/18 01:49 Dose: 0.5 mg Documented by: [id number] Admin: 09/08/18 19:00 Dose: 0.5 mg Documented by: [id number] Admin: 09/08/18 13:05 Dose: 0.5 mg Documented by: [id number] Admin: 09/08/18 06:55 Dose: 0.5 mg Documented by: [id number] Admin: 09/08/18 01:57 Dose: Not Given Documented by: [id number] Admin: 09/07/18 19:07 Dose: 0.5 mg Documented by: [id number] Admin: 09/07/18 13:56 Dose: 0.5 mg Documented by: [id number] Admin: 09/07/18 07:01 Dose: 0.5 mg Documented by: [id number] Admin: 09/07/18 01:50 Dose: 0.5 mg Documented by: [id number] Admin: 09/06/18 19:10 Dose: 0.5 mg Documented by: [id number] Admin: 09/06/18 13:22 Dose: 0.5 mg Documented by: [id number] Admin: 09/06/18 07:05 Dose: 0.5 mg Documented by: [id number] Admin: 09/06/18 01:36 Dose: 0.5 mg Documented by: [id number] Admin: 09/05/18 19:11 Dose: 0.5 mg Documented by: [id number] Admin: 09/05/18 14:26 Dose: 0.5 mg Documented by: [id number] Admin: 09/05/18 06:58 Dose: 0.5 mg Documented by: [id number] Admin: 09/05/18 01:36 Dose: 0.5 mg Documented by: [id number] Admin: 09/04/18 19:17 Dose: 0.5 mg Documented by: [id number] Admin: 09/04/18 14:35 Dose: 0.5 mg Documented by: [id number] Admin: 09/04/18 07:21 Dose: 0.5 mg Documented by: [id number] Admin: 09/04/18 01:43 Dose: 0.5 mg Documented by: [id number] Admin: 09/03/18 19:11 Dose: 0.5 mg Documented by: [id number] Admin: 09/03/18 13:58 Dose: 0.5 mg Documented by: [id number] Levalbuterol HCl (Xopenex 0.63 Mg/3 Ml Neb) 0.63 mg NEB Q6R NATALY Stop: 10/03/18 13:59 Last Admin: 09/13/18 07:07 Dose: 0.63 mg Documented by: [id number] Admin: 09/13/18 02:15 Dose: 0.63 mg Documented by: [id number] Admin: 09/12/18 19:50 Dose: 0.63 mg Documented by: [id number] Admin: 09/12/18 15:17 Dose: 0.63 mg Documented by: [id number] Admin: 09/12/18 07:15 Dose: 0.63 mg Documented by: [id number] Admin: 09/12/18 01:29 Dose: 0.63 mg Documented by: [id number] Admin: 09/11/18 18:59 Dose: 0.63 mg Documented by: [id number] Admin: 09/11/18 14:05 Dose: 0.63 mg Documented by: [id number] Admin: 09/11/18 07:12 Dose: 0.63 mg Documented by: [id number] Admin: 09/11/18 01:57 Dose: 0.63 mg Documented by: [id number] Admin: 09/10/18 19:19 Dose: 0.63 mg Documented by: [id number] Admin: 09/10/18 13:53 Dose: 0.63 mg Documented by: [id number] Admin: 09/10/18 07:12 Dose: 0.63 mg Documented by: [id number] Admin: 09/10/18 02:37 Dose: 0.63 mg Documented by: [id number] Admin: 09/09/18 18:50 Dose: 0.63 mg Documented by: [id number] Admin: 09/09/18 14:09 Dose: 0.63 mg Documented by: [id number] Admin: 09/09/18 07:19 Dose: 0.63 mg Documented by: [id number] Admin: 09/09/18 01:48 Dose: 0.63 mg Documented by: [id number] Admin: 09/08/18 19:00 Dose: 0.63 mg Documented by: [id number] Admin: 09/08/18 13:05 Dose: 0.63 mg Documented by: [id number] Admin: 09/08/18 06:56 Dose: 0.63 mg Documented by: [id number] Admin: 09/08/18 01:57 Dose: Not Given Documented by: [id number] Admin: 09/07/18 19:07 Dose: 0.63 mg Documented by: [id number] Admin: 09/07/18 13:55 Dose: 0.63 mg Documented by: [id number] Admin: 09/07/18 07:01 Dose: 0.63 mg Documented by: [id number] Admin: 09/07/18 01:50 Dose: 0.63 mg Documented by: [id number] Admin: 09/06/18 19:10 Dose: 0.63 mg Documented by: [id number] Admin: 09/06/18 13:22 Dose: 0.63 mg Documented by: [id number] Admin: 09/06/18 07:05 Dose: 0.63 mg Documented by: [id number] Admin: 09/06/18 01:36 Dose: 0.63 mg Documented by: [id number] Admin: 09/05/18 19:11 Dose: 0.63 mg Documented by: [id number] Admin: 09/05/18 14:26 Dose: 0.63 mg Documented by: [id number] Admin: 09/05/18 06:57 Dose: 0.63 mg Documented by: [id number] Admin: 09/05/18 01:36 Dose: 0.63 mg Documented by: [id number] Admin: 09/04/18 19:17 Dose: 0.63 mg Documented by: [id number] Admin: 09/04/18 14:35 Dose: 0.63 mg Documented by: [id number] Admin: 09/04/18 07:21 Dose: 0.63 mg Documented by: [id number] Admin: 09/04/18 01:43 Dose: 0.63 mg Documented by: [id number] Admin: 09/03/18 19:11 Dose: 0.63 mg Documented by: [id number] Admin: 09/03/18 13:58 Dose: 0.63 mg Documented by: [id number] Levothyroxine Sodium (Synthroid) 50 mcg PO DAILYBB NATALY Stop: 09/30/18 06:29 Last Admin: 09/13/18 06:40 Dose: 50 mcg Documented by: [id number] Admin: 09/12/18 06:35 Dose: Not Given Documented by: [id number] Admin: 09/11/18 05:36 Dose: 50 mcg Documented by: [id number] Admin: 09/10/18 05:51 Dose: 50 mcg Documented by: [id number] Admin: 09/09/18 06:22 Dose: 50 mcg Documented by: [id number] Admin: 09/08/18 05:27 Dose: 50 mcg Documented by: [id number] Admin: 09/07/18 05:27 Dose: 50 mcg Documented by: [id number] Admin: 09/06/18 05:20 Dose: 50 mcg Documented by: [id number] Admin: 09/05/18 05:33 Dose: 50 mcg Documented by: [id number] Admin: 09/04/18 06:42 Dose: 50 mcg Documented by: [id number] Admin: 09/03/18 06:25 Dose: 50 mcg Documented by: [id number] Admin: 09/02/18 06:18 Dose: 50 mcg Documented by: [id number] Admin: 09/01/18 06:03 Dose: 50 mcg Documented by: [id number] Admin: 08/31/18 06:07 Dose: 50 mcg Documented by: [id number] Lisinopril (Zestril) 20 mg PO QAM [facility] Stop: 10/12/18 08:59 Last Admin: 09/12/18 09:37 Dose: Not Given Documented by: [id number] Midazolam HCl (Versed) 2 mg IV Q2H PRN PRN Reason: agitation/anxiety Stop: 10/13/18 04:56 Last Admin: 09/13/18 09:30 Dose: 2 mg Documented by: [id number] Morphine Sulfate (Morphine Sulfate) 2 mg IV Q2H PRN PRN Reason: Pain Stop: 09/26/18 13:50 Last Admin: 09/13/18 02:40 Dose: 2 mg Documented by: [id number] Admin: 09/12/18 22:07 Dose: 2 mg Documented by: [id number] Admin: 09/12/18 19:23 Dose: 2 mg Documented by: [id number] Admin: 09/12/18 16:35 Dose: 2 mg Documented by: [id number] Dulera 100mcg/5mcg~ Non-Formulary Patient's Own Med 2 ea PO BID [facility] Stop: 10/09/18 20:59 Last Admin: 09/13/18 08:48 Dose: Not Given Documented by: [id number] Admin: 09/12/18 20:28 Dose: 2 puffs Documented by: [id number] Admin: 09/12/18 09:37 Dose: Not Given Documented by: [id number] Admin: 09/11/18 21:01 Dose: Not Given Documented by: [id number] Admin: 09/11/18 10:34 Dose: Not Given Documented by: [id number] Admin: 09/10/18 21:53 Dose: 1 puffs Documented by: [id number] Admin: 09/10/18 08:39 Dose: 2 puffs Documented by: [id number] Admin: 09/09/18 21:14 Dose: Not Given Documented by: [id number] Prednisone (Prednisone) 10 mg PO QAM NATALY Stop: 10/03/18 08:59 Last Admin: 09/03/18 08:48 Dose: 10 mg Documented by: [id number] Rosuvastatin Calcium (Crestor) 10 mg PO DAILY [facility] Stop: 09/30/18 08:59 Last Admin: 09/13/18 08:57 Dose: 10 mg Documented by: [id number] Admin: 09/12/18 09:36 Dose: Not Given Documented by: [id number] Admin: 09/11/18 09:20 Dose: Not Given Documented by: [id number] Admin: 09/10/18 08:39 Dose: 10 mg Documented by: [id number] Admin: 09/09/18 09:14 Dose: 10 mg Documented by: [id number] Admin: 09/08/18 08:08 Dose: 10 mg Documented by: [id number] Admin: 09/07/18 11:56 Dose: Not Given Documented by: [id number] Admin: 09/06/18 08:47 Dose: 10 mg Documented by: [id number] Admin: 09/05/18 07:55 Dose: 10 mg Documented by: [id number] Admin: 09/04/18 08:18 Dose: 10 mg Documented by: [id number] Admin: 09/03/18 08:00 Dose: 10 mg Documented by: [id number] Admin: 09/02/18 08:07 Dose: 10 mg Documented by: [id number] Admin: 09/01/18 09:50 Dose: Not Given Documented by: [id number] Admin: 08/31/18 08:24 Dose: 10 mg Documented by: [id number] Critical Care Time Critical Care Time: Yes Total Critical Care Time: 55 Resident Activity Tracking Resident Involvement: Resident Care Provided Care Provided: Adult Hospital Medicine (ICU)
--- NOTE | 2018-09-13 08:28 | Palliative Care Consultation ---
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 The pacemaker has been removed and cultures are growing MSSA and pseudomonas. She is on daptomycin and cefepime. Patient's hospital stay has been complicated by respiratory failure and ARDS, as well as acute kidney injury. Patient had acute decompensation last evening and changed her code status from DNR to FULL CODE. She was intubated for worsening respiratory status and is now on mechanical ventilator in ICU. Cardiology is following and nephrology consulted today. Creatinine is 0.6-0.8 at baseline, and acute hoda to 1.8 today with oliguria-- likely 2/2 labile renal perfusion. Patient did have period of hypotension last evening for which she briefly had vasoactive medication which has since been discontinued. Palliative care is consulted to assist with discussion about goals of care. -Met with patient and her two daughters, Thalia and Norah. Patient is obtunded on mechanical vent. One daughter was here all night, the other just arrived this morning. Norah was present when patient made her decision to change her code status last evening to FULL CODE. She states that she knows her mother is not ready to , but also does not want to suffer. If patient is not recovering and is looking towards needing long-term life-prolonging measures, family will step in and make decisions for the patient. Both daughters agree that they do not want their mother to suffer. Uncertain at this time if patient would want dialysis or not. -For now, continue to full treatment and FULL CODE. Palliative care will follow for medical decision making. (2) Bacteremia due to methicillin susceptible Staphylococcus aureus (MSSA): (3) Respiratory failure: (4) Acute on chronic renal failure: Acute renal failure type: unspecified Chronic kidney disease stage: stage 3 (moderate) Qualified Code(s): N17.9 - Acute kidney failure, unspecified; N18.3 - Chronic kidney disease, stage 3 (moderate) (5) Interstitial lung disease: (6) Sjogren's syndrome with lung involvement: History of Present Illness Reason for Consultation: Goals of care, medical decision making Requesting Physician: Dr. 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 The pacemaker has been removed and cultures are growing MSSA and pseu domonas. She is on daptomycin and cefepime. Patient's hospital stay has been complicated by respiratory failure and ARDS, as well as acute kidney injury. Patient had acute decompensation last evening and changed her code status from DNR to FULL CODE. She was intubated for worsening respiratory status and is now on mechanical ventilator in ICU. Cardiology is following and nephrology consulted today. Creatinine is 0.6-0.8 at baseline, and acute hoda to 1.8 today with oliguria-- likely 2/2 labile renal perfusion. Patient did have period of hypotension last evening for which she briefly had vasoactive medication which has since been discontinued. Palliative care is consulted to assist with discussion about goals of care. Thank you kindly for this consult. I will follow as needed. Allergies Allergy/AdvReac Type Severity Reaction Status Date / Time Bactrim Allergy Severe edema Unverified 05/23/17 00:18 face/lips/tongue sulfamethoxazole Allergy Severe edema Unverified 08/30/18 23:11 face/lips/tongue trimethoprim Allergy Severe edema Unverified 08/30/18 23:11 face/lips/tongue latex Allergy Mild LOCAL SKIN Unverified 08/30/18 23:11 REACTION niacin Allergy Mild RASH Unverified 08/30/18 23:11 Cipro AdvReac Intermediate GI SYMPTOMS Verified 05/23/17 00:18 ciprofloxacin AdvReac Intermediate GI SYMPTOMS Verified 08/30/18 23:11 metronidazole AdvReac Intermediate GI SYMPTOMS Verified 08/30/18 23:11 naproxen AdvReac Intermediate BURNING Unverified 08/30/18 23:11 STOMACH Home Medications Home Medications Medication Instructions Recorded Confirmed Type Artificial Tears (PF) 1 drp OPHTHALMIC (EYE) HS 07/30/18 08/30/18 History Dulera 2 puff INHALATION Q12H 07/30/18 08/30/18 History albuterol sulfate 2 puff INHALATION Q6H PRN 07/30/18 08/30/18 History amlodipine 5 mg PO DAILY 07/30/18 08/30/18 History levothyroxine 50 mcg PO DAILY 07/30/18 08/30/18 History metformin 500 mg PO BID 07/30/18 08/30/18 History omeprazole 20 mg PO DAILY 07/30/18 08/30/18 History rosuvastatin [Crestor] 10 mg PO DAILY 07/30/18 08/30/18 History triamcinolone acetonide 1 applic TOPICAL BID 07/30/18 08/30/18 History Ocuvite Eye Plus Multi 2 tab PO DAILY 08/18/18 08/30/18 History Probiotic 3,000 mmu cells PO DAILY 08/18/18 08/30/18 History acetaminophen [Acetaminophen Extra 1,000 mg PO BID PRN 08/18/18 08/30/18 History Strength] calcium polycarbophil [Fiber 1,250 mg PO DAILY 08/18/18 08/30/18 History (calcium polycarbophil)] docusate sodium 100 mg PO BID PRN 08/18/18 08/30/18 History erythromycin 1 applic OPHTHALMIC (EYE) QID 08/18/18 08/30/18 History ipratropium bromide 0.5 mg INHALATION Q4H PRN 08/18/18 08/30/18 History metoprolol succinate 50 mg PO BID 08/18/18 08/30/18 History prednisone 10 mg PO DAILY 08/18/18 08/30/18 History Patient History Medical History Sjogren's syndrome with lung involvement (Chronic) Retinal vein occlusion (Chronic) Pulmonary hypertension (Chronic) GERD (gastroesophageal reflux disease) (Chronic) Dyslipidemia (Chronic) CKD (chronic kidney disease), stage III (Chronic) Hypertension (Chronic) Osteoporosis (Chronic) Central retinal vein occlusion of left eye (Chronic) Diverticulosis of colon (Chronic) History of pacemaker Tachy-cierra syndrome GERD (gastroesophageal reflux disease) (Inactive) Surgical History Status post tubal ligation (Chronic) Status post appendectomy (Chronic) History of appendectomy (Resolved) Family History Other Heart disease Social History Preferred Language: Telugu Communication Ability: Effective Beliefs That Will Affect Care: None marital status: / Current Living Situation: Family Current Living Situation Comment: Patient's son, Lorenzo, lives with her. current occupational status: retired Feels Safe at Home: Yes Smoking Status: Never smoker Hx Alcohol Use: Yes Alcohol type: beer Hx Substance Use: No Review of Systems Review of Systems: Unobtainable due to endotracheal tube Physical Exam Constitutional: + ill appearing (acutely ill on ventilator in ICU) ENMT: ETT present Neck: normal visual inspection Respiratory: normal respiratory effort; no respiratory distress Cardiovascular: Rate/Rhythm: regular rhythm and + bradycardic Extremities: no edema Gastrointestinal (Abdomen): Inspection/Auscultation: abdomen normal to inspection and normal bowel sounds; abdomen not distended Neurologic: + not awake (sedated on vent) Results & Data Vital Signs (Past 12 Hours) Vital Signs Temp Pulse Pulse Resp BP Pulse Ox 09/13/18 07:29 51 L 16 98 09/13/18 06:22 50 L 16 100 09/13/18 06:00 51 L 105/45 L 100 09/13/18 05:55 50 L 108/45 L 100 09/13/18 05:50 51 L 105/44 L 100 09/13/18 05:45 51 L 107/41 L 100 09/13/18 05:40 48 L 108/41 L 100 09/13/18 05:35 49 L 111/41 L 100 09/13/18 05:30 51 L 113/41 L 98 09/13/18 05:25 51 L 119/44 L 100 09/13/18 05:20 56 L 119/43 L 100 09/13/18 05:15 58 L 127/50 L 100 09/13/18 05:10 59 L 132/49 L 100 09/13/18 05:05 58 L 126/51 L 100 09/13/18 05:01 59 L 113/54 L 100 09/13/18 05:00 58 L 121/41 L 100 09/13/18 04:55 49 L 115/39 L 100 09/13/18 04:50 50 L 103/40 L 100 09/13/18 04:45 36.7 C 45 L 107/37 L 100 09/13/18 04:40 45 L 89/37 L 09/13/18 04:37 44 L 84/37 L 100 09/13/18 04:35 44 L 95/41 L 100 09/13/18 04:33 45 L 95/40 L 100 09/13/18 04:32 47 L 99/42 L 100 09/13/18 04:30 49 L 18 104/43 L 100 09/13/18 04:25 58 L 112/65 99 09/13/18 04:22 51 L 119/42 L 100 09/13/18 04:15 60 129/48 L 94 09/13/18 04:00 62 142/53 H 100 09/13/18 03:30 62 26 H 135/69 99 09/13/18 03:00 61 25 H 144/56 H 100 09/13/18 02:30 61 24 141/58 H 100 09/13/18 02:18 59 L 31 H 100 09/13/18 02:16 59 L 31 H 100 09/13/18 02:00 58 L 23 138/55 L 100 09/13/18 01:30 56 L 19 137/58 L 100 09/13/18 01:00 55 L 14 128/53 L 97 09/13/18 00:30 59 L 33 H 137/59 L 100 09/13/18 00:03 60 26 H 100 09/13/18 00:01 36.9 C 60 31 H 136/86 100 09/13/18 00:00 60 33 H 136/86 97 09/12/18 23:35 60 35 H 100 09/12/18 23:30 57 L 20 129/56 L 100 09/12/18 23:00 55 L 22 128/53 L 98 09/12/18 22:30 58 L 31 H 132/59 L 98 09/12/18 22:00 59 L 33 H 140/62 100 09/12/18 21:30 59 L 26 H 139/65 99 09/12/18 21:00 60 21 153/68 H 99 09/12/18 20:30 58 L 29 H 138/66 99 PG Care Time/CCT Total # of Minutes Spent Total Time Spent with Patient: Total time spent is greater than 50% in coordination of care (as documented) at patient's floor/unit and/or counseling patient: Time Spent Midlevel 70 minutes with >50% of the time spent at bedside with patient and family, as well as IDT, discussing condition, GOC, and POC.
[2018-09-13] MEDS: DULERA PO SCH (08:48)
[2018-09-13] MEDS: CLOTRIMAZOLE 10 MG TROCHE BUCCAL SCH ×5 (08:48→22:11)
[2018-09-13] MEDS: FLUTICASONE/SALMETEROL 100/50 (ADVAIR) 14 PUFF/1 INHALER INH SCH (08:48)
[2018-09-13] MEDS: ROSUVASTATIN CALCIUM 10 MG TAB PO SCH (08:57)
[2018-09-13] MEDS: NORMOSOL-R 1,000 ML IV SCH ×2 (08:57→21:28)
[2018-09-13] MEDS: FAMOTIDINE 20 MG in SYRINGE 3 ML IV SCH (08:58)
[2018-09-13] MEDS ORDERED: INSULIN GLARGINE SOLOSTAR 100 UNITS/ML 3 ML PEN SC ONE (09:00)
[2018-09-13] MEDS ORDERED: NORMOSOL-R 500 ML IV ONE (09:00)
--- NOTE | 2018-09-13 09:18 | Nephrology Consultation ---
Date of Consultation September 13, 2018 Assessment & Plan (1) Acute on chronic renal failure: baseline creatinine 0.6-0.8. at baseline until 09/13 am when creatinine increased to 1.8. also oliguric, possibly anuric. while AIN is certainly possible, likelier cause here will be ATN from labile renal perfusion given rapidly changing blood pressures/HR; also s/p recent lasix infusion and initiation of IV ACEI; also concern here for recurrent or new infection though no clear source found given increased WBC (increased before recent intensification of steroids) -daily bmp and agree w/ repeat bmp for 1600 (already ordered) >> creatinine continue to worsen but will follow -her SBP has been labile but more stable; cont normosol cautiously at current rate (limit is her respiratory status on the vent but for now appears to be tolerating) -f/u CK << wnl -ordered UACM and urine cx; findings show contaminated specimen w/ budding yeast, very concentrated sediment and ketones; not particularly consistent w/ UTI but very consistent w/ vol depletion as are urine chemistries -f/u pending renal u/s > no HEIDI or obstruction -no current indication for dialysis though cannot rule out at least consideration of this if she remains full code; she is a poor candidate; f/u palliative care recs Present on Admission?: No (2) Hyponatremia: w/ 1600 labs will order further studies to better assess cause >> TSH wnl, serum osms are near normal; stable on recheck this PM; recheck in am -for now normosol current rate is reasonable Present on Admission?: No (3) Oliguria: trial of volume repletion as above; normosol is appropriate Present on Admission?: No History of Present Illness Reason for Consultation: r/o acute interstitial nephritis Requesting Physician: Dr Zabala Attending Physician: Chelly Mckinnon MD History of Present Illness 83 y/o F whom I'm asked to evaluate for AIN was admitted to ICU yesterday d/t worsening pulmonary edema and HTN. She was originally admitted here on 09/01 w/ an infected pacemaker pocket (cxs w/ MSSA and pseudomonas) and MSSA bacteremia; pacer had been placed 08/18/18 for symptomatic 2nd degree AV block. Cultures have been negative since 09/02. She is being treated w/ cefepime and daptomycin; inf dzs is following. Her baseline creatinine is 0.6-0.8 through this admission. However overnight her creatinine jumped to 1.8. She has been having ongoing hyponatremia, w/ sNa today 128; was as low as 124 on 09/11 pm. Her UOP has been quite labile >> from (all hull measurements) 600 mL on 09/10, to 3 L on 09/12, to 20 mL so far today. She is receiving normosol 500 mL bolus then 80 mL standing rate currently. Other significant PMH includes pulmonary fibrosis, Sjoegrens syndrome on 10 mg prednisone daily, PE/DVTs (currently on heparin gtt), HTN, DM on metformin as OP, hypothyroid. On transfer to ICU yesterday, pt prognosis and code status were reviewed: she was made DNR/DNI; however, early this am pt and her daughter requested change to full code status. Pt was subsequently intubated. She did have transient bradycardia during the process w/ HR in 30s. She was started on a cardene gtt and bp came to 120-140s systolic since yesterday AM. SBP has also been lower since intubation, currently in 100s. Palliative care c/s is pending; cardiology also following. Lisinopril was just ordered for her but has not to date been given; was getting IV enalaprilat 09/11- 09/12 however. her remaining bp meds -- amlodipine and ACEI -- are on hold. She did have a one time lasix dose IV yesterday 80 mg; prior to this had been on lasix 20 mg daily but non esince 09/10. Allergies Allergy/AdvReac Type Severity Reaction Status Date / Time Bactrim Allergy Severe edema Unverified 05/23/17 00:18 face/lips/tongue sulfamethoxazole Allergy Severe edema Unverified 08/30/18 23:11 face/lips/tongue trimethoprim Allergy Severe edema Unverified 08/30/18 23:11 face/lips/tongue latex Allergy Mild LOCAL SKIN Unverified 08/30/18 23:11 REACTION niacin Allergy Mild RASH Unverified 08/30/18 23:11 Cipro AdvReac Intermediate GI SYMPTOMS Verified 05/23/17 00:18 ciprofloxacin AdvReac Intermediate GI SYMPTOMS Verified 08/30/18 23:11 metronidazole AdvReac Intermediate GI SYMPTOMS Verified 08/30/18 23:11 naproxen AdvReac Intermediate BURNING Unverified 08/30/18 23:11 STOMACH Home Medications Home Medications Medication Instructions Recorded Confirmed Type Artificial Tears (PF) 1 drp OPHTHALMIC (EYE) HS 07/30/18 08/30/18 History Dulera 2 puff INHALATION Q12H 07/30/18 08/30/18 History albuterol sulfate 2 puff INHALATION Q6H PRN 07/30/18 08/30/18 History amlodipine 5 mg PO DAILY 07/30/18 08/30/18 History levothyroxine 50 mcg PO DAILY 07/30/18 08/30/18 History metformin 500 mg PO BID 07/30/18 08/30/18 History omeprazole 20 mg PO DAILY 07/30/18 08/30/18 History rosuvastatin [Crestor] 10 mg PO DAILY 07/30/18 08/30/18 History triamcinolone acetonide 1 applic TOPICAL BID 07/30/18 08/30/18 History Ocuvite Eye Plus Multi 2 tab PO DAILY 08/18/18 08/30/18 History Probiotic 3,000 mmu cells PO DAILY 08/18/18 08/30/18 History acetaminophen [Acetaminophen Extra 1,000 mg PO BID PRN 08/18/18 08/30/18 History Strength] calcium polycarbophil [Fiber 1,250 mg PO DAILY 08/18/18 08/30/18 History (calcium polycarbophil)] docusate sodium 100 mg PO BID PRN 08/18/18 08/30/18 History erythromycin 1 applic OPHTHALMIC (EYE) QID 08/18/18 08/30/18 History ipratropium bromide 0.5 mg INHALATION Q4H PRN 08/18/18 08/30/18 History metoprolol succinate 50 mg PO BID 08/18/18 08/30/18 History prednisone 10 mg PO DAILY 08/18/18 08/30/18 History Patient History Medical History Sjogren's syndrome with lung involvement (Chronic) Retinal vein occlusion (Chronic) Pulmonary hypertension (Chronic) GERD (gastroesophageal reflux disease) (Chronic) Dyslipidemia (Chronic) CKD (chronic kidney disease), stage III (Chronic) Hypertension (Chronic) Osteoporosis (Chronic) Central retinal vein occlusion of left eye (Chronic) Diverticulosis of colon (Chronic) History of pacemaker Tachy-cierra syndrome GERD (gastroesophageal reflux disease) (Inactive) Surgical History Status post tubal ligation (Chronic) Status post appendectomy (Chronic) History of appendectomy (Resolved) Family History Other Heart disease Social History Preferred Language: Georgian Communication Ability: Effective Beliefs That Will Affect Care: None marital status: / Current Living Situation: Family Current Living Situation Comment: Patient's son, Lorenzo, lives with her. current occupational status: retired Feels Safe at Home: Yes Smoking Status: Never smoker Hx Alcohol Use: Yes Alcohol type: beer Hx Substance Use: No Review of Systems Review of Systems: Unobtainable due to endotracheal tube and Unobtainable due to reduced consciousness Physical Exam Constitutional: well developed and well nourished intubated, sedated ENMT: Ears: no external ear abnormality Nose: no external nose abnormality Mouth: + dry oral mucous membranes Neck: no nuchal rigidity Respiratory: normal respiratory effort Auscultation: + diminished lung sounds Cardiovascular: Rate/Rhythm: regular rhythm and + bradycardic Extremities: no edema Gastrointestinal (Abdomen): Inspection/Auscultation: + abdomen distended (slight) and normal bowel sounds Percussion/Palpation: abdomen soft; abdomen nontender Skin: no rashes, warm and dry Neurologic: sedated; not withdrawing to noxious stimuli or responding to voice Psychiatric: cannot assess/ intubated -sedated Genitourinary: hull w/ scant yellow urine Results & Data Vital Signs (Past 12 Hours) Vital Signs Temp Pulse Pulse Resp BP Pulse Ox 09/13/18 08:00 36.7 C 53 L 16 111/44 L 98 09/13/18 07:29 51 L 16 98 09/13/18 07:00 51 L 16 112/46 L 100 09/13/18 06:22 50 L 16 100 09/13/18 06:00 51 L 105/45 L 100 09/13/18 05:55 50 L 108/45 L 100 09/13/18 05:50 51 L 105/44 L 100 09/13/18 05:45 51 L 107/41 L 100 09/13/18 05:40 48 L 108/41 L 09/13/18 05:35 49 L 111/41 L 100 09/13/18 05:30 51 L 113/41 L 98 09/13/18 05:25 51 L 119/44 L 100 09/13/18 05:20 56 L 119/43 L 100 09/13/18 05:15 58 L 127/50 L 100 09/13/18 05:10 59 L 132/49 L 100 09/13/18 05:05 58 L 126/51 L 09/13/18 05:01 59 L 113/54 L 100 09/13/18 05:00 58 L 121/41 L 100 09/13/18 04:55 49 L 115/39 L 09/13/18 04:50 50 L 103/40 L 09/13/18 04:45 36.7 C 45 L 107/37 L 09/13/18 04:40 45 L 89/37 L 09/13/18 04:37 44 L 84/37 L 09/13/18 04:35 44 L 95/41 L 09/13/18 04:33 45 L 95/40 L 100 09/13/18 04:32 47 L 99/42 L 09/13/18 04:30 49 L 18 104/43 L 100 09/13/18 04:25 58 L 112/65 99 09/13/18 04:22 51 L 119/42 L 100 09/13/18 04:15 60 129/48 L 94 09/13/18 04:00 62 142/53 H 100 09/13/18 03:30 62 26 H 135/69 99 09/13/18 03:00 61 25 H 144/56 H 100 09/13/18 02:30 61 24 141/58 H 100 09/13/18 02:18 59 L 31 H 100 09/13/18 02:16 59 L 31 H 100 09/13/18 02:00 58 L 23 138/55 L 100 09/13/18 01:30 56 L 19 137/58 L 100 09/13/18 01:00 55 L 14 128/53 L 97 09/13/18 00:30 59 L 33 H 137/59 L 100 09/13/18 00:03 60 26 H 100 09/13/18 00:01 36.9 C 60 31 H 136/86 100 09/13/18 00:00 60 33 H 136/86 97 09/12/18 23:35 60 35 H 100 09/12/18 23:30 57 L 20 129/56 L 100 09/12/18 23:00 55 L 22 128/53 L 98 09/12/18 22:30 58 L 31 H 132/59 L 98 09/12/18 22:00 59 L 33 H 140/62 100 09/12/18 21:30 59 L 26 H 139/65 99 Laboratory Results Abnormal lab results 09/12/18 09/12/18 09/13/18 Range/Units 20:21 23:20 03:37 WBC (4.8-10.8) K/uL RBC (4.2-5.4) M/uL Hgb (12.0-16.0) g/dL Hct (37-47) % MPV (7.4-10.4) fL Immature Gran # (Auto) (0.00-0.02) K/uL Neut # (Auto) (1.4-6.5) K/uL Lymph # (Auto) (1.2-3.4) K/uL Garvin # (Auto) (0.11-0.59) K/uL APTT (21.0-31.0) Seconds POC pH (7.35-7.45) POC pCO2 56 H (35-46) mmHg POC pO2 199 H (80-95) mmHg POC HCO3 31 H (19-24) cristopher/L POC Total CO2 32 H (24-31) mEq/l POC Base Excess 5.0 H (-9-1.8) cristopher/L ABG pH (Temp Correct) (7.35-7.45) ABG pCO2 (Temp Corrct 55 H (35-46) mmHg POC ABG O2 Sat 100.0 H (90-95) % Sodium (136-145) mmol/L Potassium (3.5-5.1) mmol/L Chloride (98-107) mmol/L Anion Gap (3-11) BUN (7-18) mg/dl Creatinine (0.6-1.2) mg/dl BUN/Creatinine Ratio (10-20) Glucose (70-99) mg/dl POC Glucose 151 H 169 H (70-99) Osmolality (280-300) mOsm/kg Calcium (8.5-10.1) mg/dl Phosphorus (2.5-4.9) mg/dl Direct Bilirubin (0-0.2) mg/dl Total Protein (6.4-8.2) gm/dl Albumin (3.4-5.0) gm/dl Urine Appearance (Clear) Urine Protein (Negative) Urine Ketones (Negative) Urine Blood (Negative) Urine WBC (Auto) (0-5) /hpf Urine RBC (Auto) (0-4) /hpf U Epithel Cells (Auto) (0-5) /lpf Urine Yeast (None Prsent) Urine Osmolality (500-800) mOsm/kg 09/13/18 09/13/18 09/13/18 Range/Units 04:14 04:14 04:14 WBC 14.15 H D (4.8-10.8) K/uL RBC 2.73 L (4.2-5.4) M/uL Hgb 8.7 L (12.0-16.0) g/dL Hct 25.6 L (37-47) % MPV 10.8 H (7.4-10.4) fL Immature Gran # (Auto) 0.04 H (0.00-0.02) K/uL Neut # (Auto) 13.93 H (1.4-6.5) K/uL Lymph # (Auto) 0.10 L (1.2-3.4) K/uL Garvin # (Auto) 0.07 L (0.11-0.59) K/uL APTT 75.0 H* (21.0-31.0) Seconds POC pH (7.35-7.45) POC pCO2 (35-46) mmHg POC pO2 (80-95) mmHg POC HCO3 (19-24) cristopher/L POC Total CO2 (24-31) mEq/l POC Base Excess (-9-1.8) cristopher/L ABG pH (Temp Correct) (7.35-7.45) ABG pCO2 (Temp Corrct (35-46) mmHg POC ABG O2 Sat (90-95) % Sodium 128 L (136-145) mmol/L Potassium (3.5-5.1) mmol/L Chloride 87 L (98-107) mmol/L Anion Gap 13.0 H (3-11) BUN 43 H D (7-18) mg/dl Creatinine 1.75 H D (0.6-1.2) mg/dl BUN/Creatinine Ratio 24.7 H (10-20) Glucose 186 H (70-99) mg/dl POC Glucose (70-99) Osmolality (280-300) mOsm/kg Calcium 8.1 L (8.5-10.1) mg/dl Phosphorus 5.3 H D (2.5-4.9) mg/dl Direct Bilirubin 0.3 H (0-0.2) mg/dl Total Protein 6.0 L (6.4-8.2) gm/dl Albumin 2.2 L (3.4-5.0) gm/dl Urine Appearance (Clear) Urine Protein (Negative) Urine Ketones (Negative) Urine Blood (Negative) Urine WBC (Auto) (0-5) /hpf Urine RBC (Auto) (0-4) /hpf U Epithel Cells (Auto) (0-5) /lpf Urine Yeast (None Prsent) Urine Osmolality (500-800) mOsm/kg 09/13/18 09/13/18 09/13/18 Range/Units 06:20 06:25 07:40 WBC (4.8-10.8) K/uL RBC (4.2-5.4) M/uL Hgb (12.0-16.0) g/dL Hct (37-47) % MPV (7.4-10.4) fL Immature Gran # (Auto) (0.00-0.02) K/uL Neut # (Auto) (1.4-6.5) K/uL Lymph # (Auto) (1.2-3.4) K/uL Garvin # (Auto) (0.11-0.59) K/uL APTT (21.0-31.0) Seconds POC pH 7.48 H (7.35-7.45) POC pCO2 (35-46) mmHg POC pO2 255 H (80-95) mmHg POC HCO3 30 H (19-24) cristopher/L POC Total CO2 (24-31) mEq/l POC Base Excess 7.0 H (-9-1.8) cristopher/L ABG pH (Temp Correct) 7.490 H (7.35-7.45) ABG pCO2 (Temp Corrct (35-46) mmHg POC ABG O2 Sat 100.0 H (90-95) % Sodium (136-145) mmol/L Potassium (3.5-5.1) mmol/L Chloride (98-107) mmol/L Anion Gap (3-11) BUN (7-18) mg/dl Creatinine (0.6-1.2) mg/dl BUN/Creatinine Ratio (10-20) Glucose (70-99) mg/dl POC Glucose 193 H 174 H (70-99) Osmolality (280-300) mOsm/kg Calcium (8.5-10.1) mg/dl Phosphorus (2.5-4.9) mg/dl Direct Bilirubin (0-0.2) mg/dl Total Protein (6.4-8.2) gm/dl Albumin (3.4-5.0) gm/dl Urine Appearance (Clear) Urine Protein (Negative) Urine Ketones (Negative) Urine Blood (Negative) Urine WBC (Auto) (0-5) /hpf Urine RBC (Auto) (0-4) /hpf U Epithel Cells (Auto) (0-5) /lpf Urine Yeast (None Prsent) Urine Osmolality (500-800) mOsm/kg 09/13/18 09/13/18 09/13/18 Range/Units 09:47 11:53 14:01 WBC (4.8-10.8) K/uL RBC (4.2-5.4) M/uL Hgb (12.0-16.0) g/dL Hct (37-47) % MPV (7.4-10.4) fL Immature Gran # (Auto) (0.00-0.02) K/uL Neut # (Auto) (1.4-6.5) K/uL Lymph # (Auto) (1.2-3.4) K/uL Garvin # (Auto) (0.11-0.59) K/uL APTT 60.9 H* (21.0-31.0) Seconds POC pH (7.35-7.45) POC pCO2 (35-46) mmHg POC pO2 (80-95) mmHg POC HCO3 (19-24) cristopher/L POC Total CO2 (24-31) mEq/l POC Base Excess (-9-1.8) cristopher/L ABG pH (Temp Correct) (7.35-7.45) ABG pCO2 (Temp Corrct (35-46) mmHg POC ABG O2 Sat (90-95) % Sodium (136-145) mmol/L Potassium (3.5-5.1) mmol/L Chloride (98-107) mmol/L Anion Gap (3-11) BUN (7-18) mg/dl Creatinine (0.6-1.2) mg/dl BUN/Creatinine Ratio (10-20) Glucose (70-99) mg/dl POC Glucose 171 H 173 H (70-99) Osmolality (280-300) mOsm/kg Calcium (8.5-10.1) mg/dl Phosphorus (2.5-4.9) mg/dl Direct Bilirubin (0-0.2) mg/dl Total Protein (6.4-8.2) gm/dl Albumin (3.4-5.0) gm/dl Urine Appearance (Clear) Urine Protein (Negative) Urine Ketones (Negative) Urine Blood (Negative) Urine WBC (Auto) (0-5) /hpf Urine RBC (Auto) (0-4) /hpf U Epithel Cells (Auto) (0-5) /lpf Urine Yeast (None Prsent) Urine Osmolality (500-800) mOsm/kg 09/13/18 09/13/18 09/13/18 Range/Units 15:53 15:53 Unknown WBC (4.8-10.8) K/uL RBC (4.2-5.4) M/uL Hgb (12.0-16.0) g/dL Hct (37-47) % MPV (7.4-10.4) fL Immature Gran # (Auto) (0.00-0.02) K/uL Neut # (Auto) (1.4-6.5) K/uL Lymph # (Auto) (1.2-3.4) K/uL Garvin # (Auto) (0.11-0.59) K/uL APTT (21.0-31.0) Seconds POC pH (7.35-7.45) POC pCO2 (35-46) mmHg POC pO2 (80-95) mmHg POC HCO3 (19-24) cristopher/L POC Total CO2 (24-31) mEq/l POC Base Excess (-9-1.8) cristopher/L ABG pH (Temp Correct) (7.35-7.45) ABG pCO2 (Temp Corrct (35-46) mmHg POC ABG O2 Sat (90-95) % Sodium 128 L (136-145) mmol/L Potassium 3.4 L (3.5-5.1) mmol/L Chloride 88 L (98-107) mmol/L Anion Gap 13.0 H (3-11) BUN 54 H (7-18) mg/dl Creatinine 2.40 H D (0.6-1.2) mg/dl BUN/Creatinine Ratio 22.7 H (10-20) Glucose 173 H (70-99) mg/dl POC Glucose (70-99) Osmolality 278 L (280-300) mOsm/kg Calcium 8.0 L (8.5-10.1) mg/dl Phosphorus (2.5-4.9) mg/dl Direct Bilirubin (0-0.2) mg/dl Total Protein (6.4-8.2) gm/dl Albumin (3.4-5.0) gm/dl Urine Appearance Turbid A (Clear) Urine Protein 2+ H (Negative) Urine Ketones Trace H (Negative) Urine Blood Trace H (Negative) Urine WBC (Auto) >30 H (0-5) /hpf Urine RBC (Auto) 10-30 H (0-4) /hpf U Epithel Cells (Auto) >30 H (0-5) /lpf Urine Yeast Budding A (None Prsent) Urine Osmolality (500-800) mOsm/kg 09/13/18 Range/Units Unknown WBC (4.8-10.8) K/uL RBC (4.2-5.4) M/uL Hgb (12.0-16.0) g/dL Hct (37-47) % MPV (7.4-10.4) fL Immature Gran # (Auto) (0.00-0.02) K/uL Neut # (Auto) (1.4-6.5) K/uL Lymph # (Auto) (1.2-3.4) K/uL Garvin # (Auto) (0.11-0.59) K/uL APTT (21.0-31.0) Seconds POC pH (7.35-7.45) POC pCO2 (35-46) mmHg POC pO2 (80-95) mmHg POC HCO3 (19-24) cristopher/L POC Total CO2 (24-31) mEq/l POC Base Excess (-9-1.8) cristopher/L ABG pH (Temp Correct) (7.35-7.45) ABG pCO2 (Temp Corrct (35-46) mmHg POC ABG O2 Sat (90-95) % Sodium (136-145) mmol/L Potassium (3.5-5.1) mmol/L Chloride (98-107) mmol/L Anion Gap (3-11) BUN (7-18) mg/dl Creatinine (0.6-1.2) mg/dl BUN/Creatinine Ratio (10-20) Glucose (70-99) mg/dl POC Glucose (70-99) Osmolality (280-300) mOsm/kg Calcium (8.5-10.1) mg/dl Phosphorus (2.5-4.9) mg/dl Direct Bilirubin (0-0.2) mg/dl Total Protein (6.4-8.2) gm/dl Albumin (3.4-5.0) gm/dl Urine Appearance (Clear) Urine Protein (Negative) Urine Ketones (Negative) Urine Blood (Negative) Urine WBC (Auto) (0-5) /hpf Urine RBC (Auto) (0-4) /hpf U Epithel Cells (Auto) (0-5) /lpf Urine Yeast (None Prsent) Urine Osmolality 290 L (500-800) mOsm/kg (1) Acute on chronic renal failure Acute renal failure type: unspecified Chronic kidney disease stage: stage 3 (moderate) Qualified Code(s): N17.9 - Acute kidney failure, unspecified; N18.3 - Chronic kidney disease, stage 3 (moderate)
[2018-09-13] MEDS: MIDAZOLAM HCL 1 MG/ML 2ML VIAL IV PRN ×5 (09:30→22:12)
[2018-09-13] MEDS ORDERED: DOCUSATE SODIUM SYRUP 100 MG/10 ML UDC PO PRN (09:45)
[2018-09-13] MEDS: DOCUSATE SODIUM SYRUP 100 MG/10 ML UDC PO SCH (09:49)
[2018-09-13] MEDS: IMPACT LIQD 1.0 CAL 1,000 ML BAG OG SCH (10:25)
--- NOTE | 2018-09-13 10:38 | Cardiology Progress Note ---
Date of Service September 13, 2018 Assessment & Plan (1) Interstitial lung disease: 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 Pacemaker extracted 09/01/2018 without complication. Remains sinus rhythm/tachycardia with 2-1 AV block on telemetry. Episode of worsening respiratory failure noted with increasing interstitial changes on chest x-ray, worsening hypoxia failure Findings are suggestive of chronic interstitial lung disease with possible superimposed ARDS Discussed findings in detail with family who have been well informed by auto tire recapper staff. I agree with trial of mechanical ventilation to assess if this will reverse re spiratory status and patient with known lung disease and marginal status. Cardiac status appears stable We will follow (2) Pulmonary embolus: (3) Bacteremia due to methicillin susceptible Staphylococcus aureus (MSSA): (4) Mobitz type 2 second degree atrioventricular block: 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 Pacemaker extracted 09/01/2018 without complication. Remains sinus rhythm/tachycardia with 2-1 AV block on telemetry. (5) Infection of pacemaker pocket: Continue current antibiotic therapy per direction of infectious disease. Subjective Patient seen and examined, events of prior day noted. Patient intubated overnight with worsening respiratory status. Now comfortable this morning on sedation mechanical ventilation Patient unable to offer any additional information Patient remains in 2-1 AV block with adequate heart rate response 50-60 Review of Systems Review of Systems: Unobtainable due to endotracheal tube Physical Exam Constitutional: Intubated and sedated Eyes: PERRL, conjunctivae normal, anicteric sclerae ENMT: Oral endotracheal tube in place Neck: trachea midline, no thyromegaly Respiratory: Slightly better aeration with coarse airway sounds Cardiovascular: Rate/Rhythm: regular rate Heart Sounds: normal S1 and normal S2; no gallop Vessels: no JVD (Neck veins flat) and no carotid bruit Extremities: no edema (1+) Gastrointestinal (Abdomen): Percussion/Palpation: abdomen soft Musculoskeletal: no cyanosis or clubbing, extremities motor strength 5/5 Skin: no rashes, warm and dry Results & Data Vital Signs (Past 12 Hours) Vital Signs Temp Pulse Pulse Resp BP Pulse Ox 09/13/18 10:00 52 L 18 146/46 H 99 09/13/18 09:00 53 L 16 131/50 L 99 09/13/18 08:00 36.7 C 53 L 16 111/44 L 98 09/13/18 07:29 51 L 16 98 09/13/18 07:00 51 L 16 112/46 L 100 09/13/18 06:22 50 L 16 100 09/13/18 06:00 51 L 105/45 L 100 09/13/18 05:55 50 L 108/45 L 09/13/18 05:50 51 L 105/44 L 100 09/13/18 05:45 51 L 107/41 L 09/13/18 05:40 48 L 108/41 L 09/13/18 05:35 49 L 111/41 L 09/13/18 05:30 51 L 113/41 L 98 09/13/18 05:25 51 L 119/44 L 100 09/13/18 05:20 56 L 119/43 L 09/13/18 05:15 58 L 127/50 L 09/13/18 05:10 59 L 132/49 L 100 09/13/18 05:05 58 L 126/51 L 09/13/18 05:01 59 L 113/54 L 100 09/13/18 05:00 58 L 121/41 L 100 09/13/18 04:55 49 L 115/39 L 100 09/13/18 04:50 50 L 103/40 L 09/13/18 04:45 36.7 C 45 L 107/37 L 09/13/18 04:40 45 L 89/37 L 09/13/18 04:37 44 L 84/37 L 09/13/18 04:35 44 L 95/41 L 09/13/18 04:33 45 L 95/40 L 100 09/13/18 04:32 47 L 99/42 L 100 09/13/18 04:30 49 L 18 104/43 L 100 09/13/18 04:25 58 L 112/65 99 09/13/18 04:22 51 L 119/42 L 100 09/13/18 04:15 60 129/48 L 94 09/13/18 04:00 62 142/53 H 100 09/13/18 03:30 62 26 H 135/69 99 09/13/18 03:00 61 25 H 144/56 H 100 09/13/18 02:30 61 24 141/58 H 100 09/13/18 02:18 59 L 31 H 100 09/13/18 02:16 59 L 31 H 100 09/13/18 02:00 58 L 23 138/55 L 100 09/13/18 01:30 56 L 19 137/58 L 100 09/13/18 01:00 55 L 14 128/53 L 97 09/13/18 00:30 59 L 33 H 137/59 L 100 09/13/18 00:03 60 26 H 100 09/13/18 00:01 36.9 C 60 31 H 136/86 100 09/13/18 00:00 60 33 H 136/86 97 09/12/18 23:35 60 35 H 100 09/12/18 23:30 57 L 20 129/56 L 100 09/12/18 23:00 55 L 22 128/53 L 98 Laboratory Results Laboratory Results - last 24 hr 09/12/18 09/12/18 09/12/18 12:55 16:30 20:21 WBC RBC Hgb Hct MCV MCH MCHC RDW Std Deviation RDW Coeff of Gabriel Plt Count MPV Immature Gran % (Auto) Neut % (Auto) Lymph % (Auto) Arthur % (Auto) Eos % (Auto) Baso % (Auto) Immature Gran # (Auto) Neut # (Auto) Lymph # (Auto) Arthur # (Auto) Eos # (Auto) Baso # (Auto) APTT PTT Ratio Sample Site POC pH POC pCO2 POC pO2 POC HCO3 POC Total CO2 POC Base Excess ABG pH (Temp Correct) ABG pCO2 (Temp Corrct POC ABG pO2 at Pt Temp POC ABG O2 Sat Wilian Test O2 Delivery Device POC O2 Rate Minute Ventilation POC FiO2 Tidal Volume PEEP IPAP Sodium Potassium Chloride Carbon Dioxide Anion Gap BUN Creatinine Est Cr Clr Drug Dosing Est GFR ( Amer) Est GFR (Non-Af Amer) BUN/Creatinine Ratio Glucose POC Glucose 149 H 166 H 151 H Calcium Phosphorus Magnesium Total Bilirubin Direct Bilirubin AST ALT Alkaline Phosphatase Total Protein Albumin Urine Legionella Ag 09/12/18 09/13/18 09/13/18 23:20 03:37 04:14 WBC RBC Hgb Hct MCV MCH MCHC RDW Std Deviation RDW Coeff of Gabriel Plt Count MPV Immature Gran % (Auto) Neut % (Auto) Lymph % (Auto) Arthur % (Auto) Eos % (Auto) Baso % (Auto) Immature Gran # (Auto) Neut # (Auto) Lymph # (Auto) Arthur # (Auto) Eos # (Auto) Baso # (Auto) APTT 75.0 H* PTT Ratio 2.8 Sample Site R Radial POC pH 7.35 POC pCO2 56 H POC pO2 199 H POC HCO3 31 H POC Total CO2 32 H POC Base Excess 5.0 H ABG pH (Temp Correct) 7.355 ABG pCO2 (Temp Corrct 55 H POC ABG pO2 at Pt Temp 196 POC ABG O2 Sat 100.0 H Wilian Test Pass O2 Delivery Device BIPAP POC O2 Rate 12 Minute Ventilation POC FiO2 100 Tidal Volume PEEP IPAP 16 Sodium Potassium Chloride Carbon Dioxide Anion Gap BUN Creatinine Est Cr Clr Drug Dosing Est GFR ( Amer) Est GFR (Non-Af Amer) BUN/Creatinine Ratio Glucose POC Glucose 169 H Calcium Phosphorus Magnesium Total Bilirubin Direct Bilirubin AST ALT Alkaline Phosphatase Total Protein Albumin Urine Legionella Ag 09/13/18 09/13/18 09/13/18 04:14 04:14 05:20 WBC 14.15 H D RBC 2.73 L Hgb 8.7 L Hct 25.6 L MCV 93.8 MCH 31.9 MCHC 34.0 RDW Std Deviation 43.8 RDW Coeff of Gabriel 12.9 Plt Count 183 MPV 10.8 H Immature Gran % (Auto) 0.3 Neut % (Auto) 98.4 Lymph % (Auto) 0.7 Arthur % (Auto) 0.5 Eos % (Auto) 0.0 Baso % (Auto) 0.1 Immature Gran # (Auto) 0.04 H Neut # (Auto) 13.93 H Lymph # (Auto) 0.10 L Arthur # (Auto) 0.07 L Eos # (Auto) 0.00 Baso # (Auto) 0.01 APTT PTT Ratio Sample Site POC pH POC pCO2 POC pO2 POC HCO3 POC Total CO2 POC Base Excess ABG pH (Temp Correct) ABG pCO2 (Temp Corrct POC ABG pO2 at Pt Temp POC ABG O2 Sat Wilian Test O2 Delivery Device POC O2 Rate Minute Ventilation POC FiO2 Tidal Volume PEEP IPAP Sodium 128 L Potassium 3.8 Chloride 87 L Carbon Dioxide 28 Anion Gap 13.0 H BUN 43 H D Creatinine 1.75 H D Est Cr Clr Drug Dosing 25.9 Est GFR ( Amer) 31.1 Est GFR (Non-Af Amer) 26.8 BUN/Creatinine Ratio 24.7 H Glucose 186 H POC Glucose Calcium 8.1 L Phosphorus 5.3 H D Magnesium 2.1 Total Bilirubin 0.6 Direct Bilirubin 0.3 H AST 23 ALT 23 Alkaline Phosphatase 68 Total Protein 6.0 L Albumin 2.2 L Urine Legionella Ag Pending 09/13/18 09/13/18 09/13/18 06:20 06:25 07:40 WBC RBC Hgb Hct MCV MCH MCHC RDW Std Deviation RDW Coeff of Gabriel Plt Count MPV Immature Gran % (Auto) Neut % (Auto) Lymph % (Auto) Arthur % (Auto) Eos % (Auto) Baso % (Auto) Immature Gran # (Auto) Neut # (Auto) Lymph # (Auto) Arthur # (Auto) Eos # (Auto) Baso # (Auto) APTT PTT Ratio Sample Site Art Line POC pH 7.48 H POC pCO2 40 POC pO2 255 H POC HCO3 30 H POC Total CO2 31 POC Base Excess 7.0 H ABG pH (Temp Correct) 7.490 H ABG pCO2 (Temp Corrct 39 POC ABG pO2 at Pt Temp 252 POC ABG O2 Sat 100.0 H Wilian Test NA O2 Delivery Device Ventilator POC O2 Rate 18 Minute Ventilation 8.1 POC FiO2 Tidal Volume 450 PEEP 8 IPAP Sodium Potassium Chloride Carbon Dioxide Anion Gap BUN Creatinine Est Cr Clr Drug Dosing Est GFR ( Amer) Est GFR (Non-Af Amer) BUN/Creatinine Ratio Glucose POC Glucose 193 H 174 H Calcium Phosphorus Magnesium Total Bilirubin Direct Bilirubin AST ALT Alkaline Phosphatase Total Protein Albumin Urine Legionella Ag (1) Pulmonary embolus Pulmonary embolism type: unspecified Chronicity: acute Acute cor pulmonale presence: without acute cor pulmonale Qualified Code(s): I26.99 - Other pulmonary embolism without acute cor pulmonale
[2018-09-13 10:58] LABS: Appearance Urine Turbid (Clear); Bacteria Urine Automated Negative (Negative); Bilirubin Urine Negative (Negative); Blood Urine Trace (Negative); Color Urine Dark Yellow; Epithelial Cell Urine Auto >30 /lpf (0-5); Glucose Urine UA Negative (Negative); Ketones Urine Trace (Negative); Leukocyte Esterase Urine Negative (Negative); Nitrite Urine Negative (Negative); Protein Urine 2+ (Negative); Specific Gravity Urine 1.028 (1.000-1.030); Urobilinogen Urine Negative (Negative); WBC Urine Automated >30 /hpf (0-5)
[2018-09-13 11:19] LABS: Sodium Random Urine 16 mmol/L; Urine Chloride < 10 mmol/L; Urine Sodium 16 mmol/L
[2018-09-13 13:08] LABS: Partial Thromboplastin Time 60.9 Seconds (21.0-31.0)
[2018-09-13 13:10] LABS: Partial Thromboplastin Ratio 2.2
--- NOTE | 2018-09-13 14:18 | Pharmacy Report ---
Pharmacy Glycemic Short Note 2 - Date of Service September 13, 2018 - Glycemic Short BSG Results (Last 24 hours): 09/12/18 09/12/18 09/12/18 12:55 16:30 20:21 Glucose POC Glucose 149 H 166 H 151 H 09/12/18 09/13/18 09/13/18 23:20 04:14 06:25 Glucose 186 H POC Glucose 169 H 193 H 09/13/18 09/13/18 07:40 09:47 Glucose POC Glucose 174 H 171 H Outpatient Anti-diabetic Regimen: * Metformin 500 mg po BID * Note: also on prednisone 10 mg po daily * A1c = 7.1% on 09/02/18 Risk Factors for Insulin Resistance: Steroids methlyprednisolone 80 mg q8h ASSESSMENT: * Steroids: Patient on solu-medrol 80 mg q8H; restarted lantus over NPH as frequency is q8(dosed slightly less than weight based stress of 3) and tighten correction factor/carb ratio as patient is also beginning tube feeds (this is similar to previous dosing on steroids) * Patient intubated this AM * BSGs well controlled yesterday, fasting this morning 186 after 125 mg dose of methylprednisolone (covered with 30 units of NPH PLAN FOR INPATIENT GLYCEMIC CONTROL: * Hold outpatient metformin * Basal insulin: 30 units this morning * Bolus insulin * NovoLog per scale ACHS with one overnight check * Goal range: 120-160 mg/dL * Correction factor: 20 mg/dL/unit * Carb ratio: 6 g CHO/unit
--- NOTE | 2018-09-13 14:32 | Ultrasound Report ---
US duplex renal artery CLINICAL HISTORY: Acute kidney injury COMPARISON STUDY: Abdomen and pelvis CT 08/31/2018. FINDINGS: The right kidney measures 10.7 cm and the left kidney measures 11.5 cm. The left kidney is not well visualized. The peak systolic velocity within the right renal artery is 111 cm/s and the lef t renal artery is 81 cm/s. Bilateral renal veins are patent. No hydronephrosis. IMPRESSION: No evidence for renal artery stenosis. Electronically signed by: Ashvin Dawson M.D. 09/13/2018 2:31 PM
--- NOTE | 2018-09-13 15:24 | Hospitalist Progress Note ---
Date of Service September 13, 2018 Assessment & Plan (1) Respiratory failure: Acute on Chronic Hypoxic Respiratory Failure Interstitial lung disease History of Sjogren's syndrome with lung involvement On chronic prednisone [address] chest ordered: Positive for right lower lobe pulmonary emboli Appreciate pulmonary input and recommendation IV Lasix as needed and BiPAP for shortness of breath Has been on intravenous Solu-Medrol and nebulized bronchodilator-changed to oral as of 09/09 We will change his steroid orally 50 mg daily and taper to continue 10 mg until she sees her bacteriologist soil as an outpatient Condition got worse since last night with increasing shortness of breath and c rackles in the lungs with decreasing saturation Chest x-ray showed more congestion and requiring 100% FiO2 to maintain saturation Administered 40 of Lasix IV at around 930 and repeat another dose now at around 2 PM Discussed with novelty maker and respiratory services manager Condition got worse this morning 09/12 Was transferred to ICU for Cardene drip and the patient was made DNR Daughter at the bedside Status post intubation last night The family members wanted to have aggressive management for some time Remains sedated on vent Management as per the respiratory services manager (2) Sepsis: Secondary to pacemaker site infection, bacteremia 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 Immunocompromised patient with Sjogren's syndrome on chronic steroid Rx S/Post removal of pacemaker on 09/01/2018 Wound culture: Positive for Pseudomonas and MSSA Blood cultures: Positive for MSSA Continue cefepime IV Appreciate ID input and recommendation -Will DC his IV cefepime and replaced with intravenous daptomycin PICC line has been placed and will continue daptomycin for 2 weeks White count has been increased Cefepime has been restarted and daptomycin continued We will continue current medications Acute renal failure: Noted to be since yesterday Hyponatremia-has been there for the last 3 or 4 days Appreciate nephrology input and recommendation Sodium level has come up to 128 No immediate indication for hemodialysis Pulmonary embolism Has been on intravenous heparin Will likely change to Eliquis on discharge-we will discuss with bacteriologist soil Will be discharged tomorrow on Eliquis/Xarelto Not yet ready to start oral medication Hypertension Amlodipine increased to 10 mg p.o. daily for better BP control Lisinopril 5 mg p.o. daily added Blood pressure noted to be very high since this morning Did not take her usual oral medications Nitropaste applied and will give 5 mg hydralazine IV Blood pressure is not controlled; will start Cardene drip and transfer the patient to ICU for better control of blood pressure Blood pressure is controlled now DM2 ISS Blood sugar has been noted to be high secondary to nasal steroid SSI-parameters have been changed DVT prophylaxis. On heparin drip Full code Disposition Pending DVT prophylaxis. Lovenox subcu Full code Discussed with the patient and the daughter Prognosis remains very poor Discussed with the daughters Subjective 09/08 The patient was seen and examined in telemetry unit Complaints of weakness and shortness of breath on exertion Denies any symptoms at rest No fever and/or chills 09/09 The patient was seen and examined in telemetry unit He remains stable Denies any significant chest pain no palpitation Out of bed in a chair has been getting physical therapy 09/10 The patient was seen and examined in the telemetry unit She denies any significant symptoms Remains to be mild shortness of breath at rest She has been waiting to go to [facility] 09/11 The patient was seen and examined today in telemetry unit in presence of her youngest daughter She has been noted to have high blood pressure of systolic more than 200 with increasing shortness of breath since this morning She has been requiring BiPAP with 100% FiO2 to maintain saturation Denies any significant pain 09/12 Condition got worse the patient was transferred to ICU Made DNR Morphine as needed for pain control 09/13 Patient was seen and examined in ICU She is a status post intubation last night The family members wanted to reverse the DNR and ask for aggressive management at this time Review of Systems Review of Systems: Status post intubation Constitutional: + fever and + chills Remains unresponsive on mechanical ventilator Respiratory: + dyspnea Neurologic: Communicating normally Physical Exam Physical Exam: Stable but critical on mechanical vent Constitutional: + ill appearing, + thin and comfortable Eyes: Close ENMT: external ear and nose normal, oropharynx normal Mallampati Class: II Neck: trachea midline, no thyromegaly normal visual inspection; neck nontender Respiratory: Auscultation: + diminished lung sounds and + crackles (Pronounced bilaterally at the bases) Cardiovascular: Rate/Rhythm: regular rate and regular rhythm Heart Sounds: normal S1 and normal S2 Vessels: normal peripheral pulses Extremities: no edema Chest (Breasts): Chest: + pacemaker (Left infraclavicular pacemaker pocket with ongoing mild erythema, and drainage from incision site, unchanged compared to yesterday. She states that it was tender to palpation yesterday and this has improved.) Gastrointestinal (Abdomen): Inspection/Auscultation: abdomen normal to inspection and normal bowel sounds Percussion/Palpation: abdomen soft Musculoskeletal: no cyanosis or clubbing, extremities motor strength 5/5 Spine: thoracic spine normal to inspection and lumbar spine normal to inspection; no pain with cervical ROM and no cervical spinal tenderness Skin: no rashes, warm and dry normal turgor and + wound (Pacemaker pocket with erythema drainage); no rashes Neurologic: awake Motor/Sensory: no sensory deficit Remains sedated Psychiatric: A+Ox3, euthymic affect Orientation: alert, oriented x 3 and cooperative Lymphatic: no cervical or axillary lymphadenopathy no inguinal lymphadenopathy Results & Data Vital Signs (Past 12 Hours) Vital Signs Temp Pulse Resp BP Pulse Ox 09/13/18 14:20 53 L 17 94 09/13/18 14:00 54 L 16 139/51 L 95 09/13/18 13:00 52 L 16 130/44 L 95 09/13/18 12:00 36.8 C 56 L 16 163/52 H 98 09/13/18 11:07 61 17 96 09/13/18 11:00 64 16 100 09/13/18 10:00 52 L 18 146/46 H 99 09/13/18 09:00 53 L 16 131/50 L 99 09/13/18 08:00 36.7 C 53 L 16 111/44 L 98 09/13/18 07:29 51 L 16 98 09/13/18 07:00 51 L 16 112/46 L 100 09/13/18 06:22 50 L 16 100 09/13/18 06:00 51 L 105/45 L 100 09/13/18 05:55 50 L 108/45 L 09/13/18 05:50 51 L 105/44 L 100 09/13/18 05:45 51 L 107/41 L 100 09/13/18 05:40 48 L 108/41 L 100 09/13/18 05:35 49 L 111/41 L 100 09/13/18 05:30 51 L 113/41 L 98 09/13/18 05:25 51 L 119/44 L 100 09/13/18 05:20 56 L 119/43 L 100 09/13/18 05:15 58 L 127/50 L 09/13/18 05:10 59 L 132/49 L 09/13/18 05:05 58 L 126/51 L 09/13/18 05:01 59 L 113/54 L 09/13/18 05:00 58 L 121/41 L 09/13/18 04:55 49 L 115/39 L 09/13/18 04:50 50 L 103/40 L 09/13/18 04:45 36.7 C 45 L 107/37 L 09/13/18 04:40 45 L 89/37 L 09/13/18 04:37 44 L 84/37 L 09/13/18 04:35 44 L 95/41 L 09/13/18 04:33 45 L 95/40 L 09/13/18 04:32 47 L 99/42 L 09/13/18 04:30 49 L 18 104/43 L 09/13/18 04:25 58 L 112/65 99 09/13/18 04:22 51 L 119/42 L 09/13/18 04:15 60 129/48 L 94 09/13/18 04:00 62 142/53 H 09/13/18 03:30 62 26 H 135/69 99 Laboratory Results Short CBC 09/13/18 Range/Units 04:14 WBC 14.15 H D (4.8-10.8) K/uL Hgb 8.7 L (12.0-16.0) g/dL Hct 25.6 L (37-47) % Plt Count 183 (130-400) K/uL BMP 09/13/18 04:14 Sodium 128 L Potassium 3.8 Chloride 87 L Carbon Dioxide 28 BUN 43 H D Creatinine 1.75 H D Glucose 186 H Calcium 8.1 L Liver Function 09/13/18 Range/Units 04:14 Total Bilirubin 0.6 (0.2-1) mg/dl Direct Bilirubin 0.3 H (0-0.2) mg/dl AST 23 (15-37) U/L ALT 23 (12-78) U/L Alkaline Phosphatase 68 (45-117) U/L Albumin 2.2 L (3.4-5.0) gm/dl Urine 09/13/18 Range/Units Unknown Urine Color Dark Yellow Urine Appearance Turbid A (Clear) Urine pH 5.0 (4.5-7.5) Ur Specific [place] 1.028 (1.000-1.030) Urine Protein 2+ H (Negative) Urine Glucose (UA) Negative (Negative) Medications Administered Current Inpatient Medications Acetaminophen (Tylenol) 650 mg PO Q4H PRN PRN Reason: Pain or Fever Stop: 09/30/18 03:45 Last Admin: 09/10/18 22:01 Dose: 650 mg Documented by: Al Hydrox/Mg Hydrox/Simethicone (Maalox) 30 ml PO Q6H PRN PRN Reason: Dyspepsia Stop: 10/07/18 09:11 Last Admin: 09/07/18 09:39 Dose: 30 ml Documented by: Albuterol (Ventolin Hfa) 2 puffs INH Q6H PRN PRN Reason: Shortness Of Breath Stop: 10/01/18 17:29 Amlodipine Besylate (Norvasc) 10 mg PO DAILY [facility] Stop: 10/05/18 08:59 Last Admin: 09/12/18 09:37 Dose: Not Given Documented by: Artificial Tears (Artificial Tears) 1 drops OP HS [facility] Stop: 09/30/18 20:59 Last Admin: 09/12/18 20:27 Dose: 1 drops Documented by: Clotrimazole (Mycelex) 10 mg BUCCAL [id number] [facility] Stop: 09/19/18 18:59 Last Admin: 09/13/18 13:36 Dose: Not Given Documented by: Dextrose (Dextrose 50%) 25 - 50 ml IV UD PRN; Protocol PRN Reason: Hypoglycemia Protocol Stop: 09/30/18 03:45 Docusate Sodium (Colace) 100 mg PO DAILY [facility] Stop: 10/13/18 08:59 Last Admin: 09/13/18 09:49 Dose: 100 mg Documented by: Docusate Sodium (Colace) 100 mg PO BID PRN PRN Reason: CONSTIPATION Stop: 09/30/18 06:29 Enteral Nutritional Formula (Impact 1.0 Fred) 1,000 ml OG UD [facility]; Protocol Stop: 10/13/18 09:59 Last Admin: 09/13/18 10:25 Dose: 1,000 ml Documented by: Fentanyl Citrate (Fentanyl Citrate) 50 mcg IV Q2H PRN PRN Reason: Moderate Pain (4,5,6) Stop: 09/27/18 04:22 Last Admin: 09/13/18 14:06 Dose: 50 mcg Documented by: Glucagon (Glucagen) 1 mg SQ UD PRN; Protocol PRN Reason: Hypoglycemia Protocol Stop: 09/30/18 03:45 Glucose (Glucose 40%) 15 - 30 gm PO UD PRN; Protocol PRN Reason: Hypoglycemia Protocol Stop: 09/30/18 03:45 Glucose (Dex4 Glucose) 4 - 8 tabs PO UD PRN; Protocol PRN Reason: Hypoglycemia Protocol Stop: 09/30/18 03:45 Heparin Sodium (Beef Lung) (Heparin Sod 10 Unit/Ml Flush) 5 ml FLUSH PRN PRN PRN Reason: Flush Stop: 10/09/18 23:03 Promethazine HCl 12.5 mg/ (Sodium Chloride) 50.5 mls @ 202 mls/hr IV Q6H PRN PRN Reason: Nausea And Vomiting Stop: 09/30/18 00:49 Last Infusion: 09/07/18 12:07 Dose: Infused Documented by: Heparin Sodium/Dextrose (Heparin Sodium/Dextrose) 25,000 units in 500 mls @ 16 mls/hr IV .Q24H [facility]; Protocol Stop: 10/05/18 15:29 Last Titration: 09/13/18 15:10 Dose: 800 units/hr, 16 mls/hr Documented by: Methylprednisolone 80 mg/ (Syringe) 1.28 mls @ 1.5 mls/min IV Q8H [facility] Stop: 10/12/18 21:59 Last Admin: 09/13/18 14:02 Dose: 1.5 mls/min Documented by: Cefepime HCl 2,000 mg/ Syringe 20 mls @ 5 mls/min IV Q24H [facility]; Protocol Stop: 09/21/18 07:59 Daptomycin 400 mg/ Syringe 8 mls @ 4 mls/min IV Q48H [facility]; Protocol Stop: 09/23/18 17:59 Parenteral Electrolytes (Normosol-R) 1,000 mls @ 80 mls/hr IV .[id number] [facility] Stop: 10/13/18 08:59 Last Admin: 09/13/18 08:57 Dose: 80 mls/hr Documented by: Famotidine 20 mg/ Syringe 5 mls @ 2.5 mls/min IV DAILY [facility] Stop: 10/12/18 20:59 Levothyroxine Sodium 25 mcg/ (Syringe) 1.25 mls @ 2 mls/min IV DAILY@0900 [facility] Stop: 10/14/18 08:59 Insulin Aspart (Novolog Flexpen) 0 units SC Q4H [facility]; Protocol Stop: 10/09/18 16:29 Last Admin: 09/13/18 14:03 Dose: 3 units Documented by: Ipratropium [place] (Atrovent 0.02% 0.5mg/2.5ml) 0.5 mg INH Q6R [facility] Stop: 10/03/18 13:59 Last Admin: 09/13/18 14:06 Dose: 0.5 mg Documented by: Ipratropium [place] (Atrovent 0.02% 0.5mg/2.5ml) 0.5 mg INH Q2H PRN PRN Reason: Shortness Of Breath Or Wheezing Stop: 10/11/18 05:59 Levalbuterol HCl (Xopenex 0.63 Mg/3 Ml Neb) 0.63 mg NEB Q6R [facility] Stop: 10/03/18 13:59 Last Admin: 09/13/18 14:07 Dose: 0.63 mg Documented by: Levalbuterol HCl (Xopenex 1.25mg/0.5ml Neb) 1.25 mg INH Q2H PRN PRN Reason: Shortness Of Breath Or Wheezing Stop: 10/11/18 05:59 Levothyroxine Sodium (Synthroid) 50 mcg PO DAILYBB [facility] Stop: 09/30/18 06:29 Last Admin: 09/13/18 06:40 Dose: 50 mcg Documented by: Lisinopril (Zestril) 20 mg PO QAM [facility] Stop: 10/12/18 08:59 Last Admin: 09/12/18 09:37 Dose: Not Given Documented by: Midazolam HCl (Versed) 2 mg IV Q2H PRN PRN Reason: agitation/anxiety Stop: 10/13/18 04:56 Last Admin: 09/13/18 12:07 Dose: 2 mg Documented by: Miscellaneous (Carbohydrates For Hypoglycemia) 15 - 30 gm PO UD PRN PRN Reason: Hypoglycemia Treatment Stop: 09/30/18 03:45 Miscellaneous Information (Consult Glycemic Management Pharmacy) 1 ea N/A UD PRN PRN Reason: Consult Stop: 10/02/18 07:11 Morphine Sulfate (Morphine Sulfate) 2 mg IV Q2H PRN PRN Reason: Pain Stop: 09/26/18 13:50 Last Admin: 09/13/18 02:40 Dose: 2 mg Documented by: Dulera 100mcg/5mcg~ Non-Formulary Patient's Own Med 2 ea PO BID [facility] Stop: 10/09/18 20:59 Last Admin: 09/13/18 08:48 Dose: Not Given Documented by: Prednisone (Prednisone) 10 mg PO QAM [facility] Stop: 10/03/18 08:59 Last Admin: 09/03/18 08:48 Dose: 10 mg Documented by: Rosuvastatin Calcium (Crestor) 10 mg PO DAILY [facility] Stop: 09/30/18 08:59 Last Admin: 09/13/18 08:57 Dose: 10 mg Documented by: Tramadol HCl (Ultram) 25 mg PO Q4H PRN PRN Reason: Pain Stop: 09/30/18 03:45
[2018-09-13] MEDS ORDERED: MIDAZOLAM HCL 5 MG/ML 1 ML VIAL IV ONE (15:33)
[2018-09-13] MEDS ORDERED: ETOMIDATE 2 MG/ML 20 ML VIAL IV ONE (15:33)
[2018-09-13] MEDS ORDERED: SUCCINYLCHOLINE CHLORIDE 20 MG/ML 10 ML VIAL IV ONE (15:33)
[2018-09-13] MEDS ORDERED: fentaNYL citrate 100 MCG/2 ML CARP IV ONE (15:33)
[2018-09-13 16:24] LABS: BUN Creatinine Ratio 22.7 (10-20); Creatinine Clr Calc Pharmacy 19.3 ml/min; Est GFR (African American) 21.2; Est GFR (Non-African American) 18.3; Potassium 3.4 mmol/L (3.5-5.1)
[2018-09-13] MEDS: ARTIFICIAL TEARS OP SCH (21:30)
[2018-09-13] MEDS: CEFEPIME 2,000 MG in SYRINGE 7.5 ML IV SCH (22:11)
[2018-09-14] MEDS: LEVALBUTEROL HCL 0.63 MG/3 ML NEB NEB SCH ×4 (02:03→19:13)
[2018-09-14] MEDS: IPRATROPIUM BROMIDE NEB SOLN 0.02% 2.5 ML VIAL INH SCH ×4 (02:03→19:13)
[2018-09-14] MEDS: INSULIN ASPART 100 UNITS/ML 3 ML PEN SC SCH ×6 (02:07→22:13)
[2018-09-14] MEDS: fentaNYL citrate 100 MCG/2 ML VIAL IV PRN (03:58)
[2018-09-14] MEDS: Heparin Adult STANDARD Wt-Based Dextrose 5% 25,000 units/500 mL IV SCH (04:06)
[2018-09-14 05:00] LABS: Hematocrit (blood only) 21.8 % (37-47); Hemoglobin 7.5 g/dL (12.0-16.0); Immature Granulocytes # (auto) 0.03 K/uL (0.00-0.02); Immature Granulocytes % (auto) 0.3 %; Lymphocytes # (auto) 0.25 K/uL (1.2-3.4); Lymphocytes % (auto) 2.1 %; Mean Corpuscular Hgb Conc 34.4 g/dL (32-36); Mean Platelet Volume 10.5 fL (7.4-10.4); Monocytes # (auto) 0.24 K/uL (0.11-0.59); Monocytes % (auto) 2.1 %; Neutrophils # (auto) 11.12 K/uL (1.4-6.5); Neutrophils % (auto) 95.5 %; Platelet Count 161 K/uL (130-400); RDW Coefficient of Variation 13.1 % (11.5-14.5); RDW Standard Deviation 44.1 fL (36.4-46.3); Red Blood Count 2.37 M/uL (4.2-5.4); White Blood Count 11.64 K/uL (4.8-10.8)
[2018-09-14 05:18] LABS: Albumin Level 1.9 gm/dl (3.4-5.0); BUN Creatinine Ratio 22.2 (10-20); Calcium 7.9 mg/dl (8.5-10.1); Creatinine Clr Calc Pharmacy 14.9 ml/min; Est GFR (African American) 15.5; Est GFR (Non-African American) 13.4; Magnesium 2.3 mg/dl (1.8-2.4); Potassium 3.7 mmol/L (3.5-5.1)
[2018-09-14 05:19] LABS: Partial Thromboplastin Ratio 2.7
[2018-09-14 05:22] LABS: Partial Thromboplastin Time 72.9 Seconds (21.0-31.0)
[2018-09-14 05:26] LABS: Albumin Globulin Ratio 0.5 (0.9-2); Bilirubin,Total 0.5 mg/dl (0.2-1); Globulin 3.5 gm/dl (2.5-4.0); Phosphorus 4.7 mg/dl (2.5-4.9); Total Protein 5.4 gm/dl (6.4-8.2)
[2018-09-14 05:27] LABS: RBC Morphology Unremarkable
[2018-09-14] MEDS: methylPREDNISolone 80 MG in SYRINGE 0 ML IV SCH (05:52)
[2018-09-14] MEDS: MIDAZOLAM HCL 1 MG/ML 2ML VIAL IV PRN ×2 (05:55→15:46)
[2018-09-14] MEDS ORDERED: MODERATE STRESS LEVEL ONE (06:13)
[2018-09-14] MEDS ORDERED: INSULIN PROTOCOL GOAL RANGE ONE (06:16)
--- NOTE | 2018-09-14 06:59 | XRay Report ---
XR chest 1V portable HISTORY: 83 years-old Female f/u follow-up study in a patient with acute respiratory failure COMPARISON: Chest radiograph 09/13/2018 TECHNIQUE: Portable AP view of the chest FINDINGS: Endotracheal tube overlies the midline, 3.7 cm superior to the alfonso. Enteric tube courses below the diaphragm outside the [id number]. Cardiac silhouette is enlarged, unchanged. Stable positioning o f the right-sided PICC. Calcification of the thoracic aortic arch. Trace pleural effusions. No pneumo thorax. Persistent bilateral mixed interstitial and alveolar opacities with mildly improved aeration of the bilateral lungs. Indeterminate lucent focus of the left axilla redemonstrated. Bones appear gr ossly intact. IMPRESSION: 1. Satisfactory positioning of life-support lines and tubes as above. 2. Cardiomegaly with mildly improved pulmonary edema pattern. 3. Trace pleural effusions. The above report was generated using voice recognition software. It may contain grammatical, syntax o r spelling errors. Electronically signed by: Rodriguez Thompson M.D. 09/14/2018 6:58 AM
--- NOTE | 2018-09-14 07:16 | Critical Care Progress Note ---
Date of Service September 14, 2018 Assessment & Plan (1) Admitted to intensive care unit: María Kunz is a 83 y/o female with hx of chronic respiratory failure secondary to pulmonary fibrosis. Original visit was for removal of infected pace maker. Neuro - Sedation with Versad Cardiac/Vascular - had an infected pacemaker which required removal. - currently bradycardic in 50s - Mobitz type 2 second degree heart block - Hold home anti-hypertensives Pulm Currently acute on chronic respiratory failure. 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 . Requires 2L O2 at home. - diagnosed on 09/05/18 with PEs in R[facility], currently on Heparin drip. - currently appears to have acute lung injury requiring mechanical ventilation - maintain sats below 98% - Vent settings: hopes of possible extubation today, but failed CPAP and then received AM versad. - Pulmonary fibrosis with pulmonary edema that was treated with diuretics. - Currently on Solu-medrol 60mg q8h. GI - NG tube - Diet: Enteral Nutritional Formula [impact 1.0 sravani] 1,000mL OG UD Nataly - Famotidine 20mg IV ordered for GI ppx - Hemoccult stools to check for GI bleed Renal/Lytes - Hyponatremic value this AM of 125, has been hyponatremic for past 7 days with values ranging 124-128 - Elevated creatinine still rising to 3.11 today - Nephro consult ordered for eval/recs - IVFs Normosol @ 80mL/hr RADHA Molina Yes Endo DM2 - Insulin Aspart * BSG range 120-160 * CF: 20 * INS:CHO - 1 unit per 6 CHO Hypothyroid * Synthroid 25mcg IV Heme - Leukocytosis improved to 11.64. - Hgb 8.7-->7.5 worsening anemia, will give one unit of pRBCs. - Platelets 161 -HIT score: 3, check heparin antibody ID Wound culture positive (08/31) for Pseudomonas and MSSA * treating with Cefepime + Daptomycin: renally adjusted - Blood cultures negative drawn on 09/02 - Will order repeat blood cultures - Urine Legionella Ag pending Lines Art line: left right single lumen picc right 18g peripheral IV - current with restraints as well DVT ppx - Heparin drip Resuscitation status - Full Code Supervising Physician Co-Signing Physician Notes Dr. Zabala was resident physician during care of patient. I separately evaluated patient for eid portions of the history and the exam. I was present during the critical portion of medical decision making, and I discussed the case with the resident. I generally agree with the findings and plan. Patient was discussed in multidisciplinary rounds as well as discussed Dr. Verma. Patient has hypertension will increase nitrates. Worsening renal function, interval improvement in chest x-ray minimal oxygen requirements would consider possible extubation however still requiring fluid for LUCIA and will discuss with family definitive game plan for extubation and possible reintubation. I have personally spent 35 minutes of critical care time in the direct management of this patient. This is a life/limb threatening event. This includes time spent evaluating patient, direct bedside care, chart review, placing orders, interpretation of diagnostic studies, discussion with consultants, patient, and/or family members regarding treatment decisions, as well as other required patient management activities. This time is exclusive of all separately billable procedures, and teaching time and separate from and in addition to any other critical care service time. Subjective Caveat: History Limited by Sedation with mechanical ventilation. No acute events reported overnight, patient has rested comfortably on sedation with mechanical ventilation. No signs of bleeding reported. Reports that María is having minimal urine output from Molina, also no reports of bowel movement. Physical Exam Constitutional: + ill appearing Neck: trachea midline; no neck crepitus Respiratory: no respiratory distress Auscultation: + diminished lung sounds (at bases) and + crackles (faint at bases) Cardiovascular: Rate/Rhythm: regular rhythm and + bradycardic Extremities: no pedal edema and no edema Gastrointestinal (Abdomen): Inspection/Auscultation: abdomen not distended Percussion/Palpation: abdomen soft Skin: no rashes, warm and dry Results & Data Vital Signs (Past 12 Hours) Vital Signs Temp Pulse Pulse Resp BP Pulse Ox 09/14/18 06:00 54 L 140/57 L 96 09/14/18 05:17 52 L 16 98 09/14/18 04:00 36.9 C 53 L 169/58 H 99 09/14/18 03:53 53 L 16 99 09/14/18 03:00 48 L 135/51 L 97 09/14/18 02:00 49 L 144/56 H 99 09/14/18 01:00 37.0 C 52 L 166/60 H 99 09/14/18 00:25 52 L 17 100 09/14/18 00:00 52 L 146/54 H 98 09/13/18 23:00 51 L 131/51 L 98 09/13/18 22:30 52 L 123/47 L 97 09/13/18 22:00 56 L 175/64 H 96 09/13/18 21:00 53 L 139/52 L 96 09/13/18 20:30 51 L 16 121/46 L 95 09/13/18 20:00 37.4 C 60 132/119 H 90 09/13/18 19:31 52 L 16 97 PG Care Time/CCT Total # of Minutes Spent Total Time Spent with Patient: Total time spent is greater than 50% in coordination of care (as documented) at patient's floor/unit and/or counseling patient: Critical Care Time: Yes Total Critical Care Time: 35
[2018-09-14] MEDS ORDERED: INSULIN ASPART 100 UNITS/ML 3 ML PEN SC SCH (07:30)
[2018-09-14] MEDS ORDERED: SODIUM CHLORIDE 0.9% 250 ML IV PRN (07:35)
[2018-09-14] MEDS: CLOTRIMAZOLE 10 MG TROCHE BUCCAL SCH ×5 (07:40→22:11)
[2018-09-14] MEDS: INSULIN REGULAR 250 UNITS in SODIUM CHLORIDE 0.9% 247.5 ML IV SCH (07:40)
[2018-09-14] MEDS: DOCUSATE SODIUM SYRUP 100 MG/10 ML UDC PO SCH (07:45)
[2018-09-14] MEDS: ROSUVASTATIN CALCIUM 10 MG TAB PO SCH (07:45)
[2018-09-14] MEDS ORDERED: MAGNESIUM CITRATE 296 ML/BTL PO STA (08:12)
[2018-09-14] MEDS: LEVOTHYROXINE SODIUM 25 MCG in SYRINGE 0 ML IV SCH (08:34)
[2018-09-14] MEDS: FAMOTIDINE 20 MG in SYRINGE 3 ML IV SCH (08:35)
[2018-09-14] MEDS: NORMOSOL-R 1,000 ML IV SCH (08:35)
--- NOTE | 2018-09-14 09:48 | Palliative Care Progress Note ---
Date of Service September 14, 2018 Assessment & Plan (1) Goals of care, counseling/discussion: -Patient remains on ventilator. CPAP trial did not go well this morning as she had a dose of versed this AM, so she was rather sedated. -Hgb 8.7 --> 7.5. Creatinine 2.40 --> 3.11. -Discussion held with family at bedside re: improved respiratory status, worsened kidney function. Family is really uncertain if patient would ever want dialysis if it gets to that point. Plan as of now is to continue with full treatment for next 24 hours and see how patient does. Norah, is patient's daughter and main decision maker per the family. Norah will be in later today and there will be ongoing discussion about goals of care and plan. (2) Bacteremia due to methicillin susceptible Staphylococcus aureus (MSSA): (3) Respiratory failure: (4) Acute on chronic renal failure: (5) Interstitial lung disease: (6) Sjogren's syndrome with lung involvement: Subjective Patient remains lethargic on the ventilator. She does move her extremities spontaneously, but not to command. Daughter, Thalia, and son, Maurice, at bedside. Review of Systems Review of Systems: Unobtainable due to endotracheal tube Physical Exam Constitutional: + ill appearing (acutely ill on ventilator in ICU) Neck: normal visual inspection Respiratory: normal respiratory effort; no respiratory distress Cardiovascular: Rate/Rhythm: regular rhythm and + bradycardic Extremities: no edema Gastrointestinal (Abdomen): Inspection/Auscultation: abdomen normal to inspection and normal bowel sounds; abdomen not distended Neurologic: moves all extremities (does move extremities, but not to command) Results & Data Vital Signs (Past 12 Hours) Vital Signs Temp Pulse Resp BP Pulse Ox 09/14/18 09:23 36.6 C 54 L 16 173/33 H 97 09/14/18 09:00 54 L 16 188/50 H 97 09/14/18 08:00 53 L 16 191/42 H 98 09/14/18 07:57 54 L 16 98 09/14/18 07:00 36.8 C 49 L 16 126/57 L 99 09/14/18 06:00 54 L 140/57 L 96 09/14/18 05:17 52 L 16 98 09/14/18 04:00 36.9 C 53 L 169/58 H 99 09/14/18 03:53 53 L 16 99 09/14/18 03:00 48 L 135/51 L 97 09/14/18 02:00 49 L 144/56 H 99 09/14/18 01:00 37.0 C 52 L 166/60 H 99 09/14/18 00:25 52 L 17 100 09/14/18 00:00 52 L 146/54 H 98 09/13/18 23:00 51 L 131/51 L 98 09/13/18 22:30 52 L 123/47 L 97 09/13/18 22:00 56 L 175/64 H 96 PG Care Time/CCT Total # of Minutes Spent Total Time Spent with Patient: Total time spent is greater than 50% in coordination of care (as documented) at patient's floor/unit and/or counseling patient: Time Spent Midlevel [35] minutes with >50% of the time spent at bedside with [patient and family] discussing [condition and GOC]. (1) Acute on chronic renal failure Acute renal failure type: unspecified Chronic kidney disease stage: stage 3 (moderate) Qualified Code(s): N17.9 - Acute kidney failure, unspecified; N18.3 - Chronic kidney disease, stage 3 (moderate)
--- NOTE | 2018-09-14 10:14 | CT Scan Report ---
CT SCAN OF THE BRAIN WITHOUT IV CONTRAST CLINICAL HISTORY: Change in mental status. Ventilated patient. COMPARISON STUDY: CT of the brain dated 08/31/2018. TECHNIQUE: Unenhanced axial CT scan of the brain is performed from the vertex to the skull base. A do se lowering technique was utilized adhering to the principles of ALARA. The Examination is compromise d by motion artifact. The patient was scanned 3 times in an effort to improve image quality. CT DOSE: 1827.44 mGy.cm FINDINGS: Brain parenchyma: There are age-related involutional changes noting mild/moderate subcortical and pe riventricular microangiopathic change. There is no hemorrhage, mass effect, or evidence of acute terr itorial ischemia by CT criteria. Goldstein-white matter differentiation is preserved. No extra-axial fluid collection is seen. Ventricles, sulci, cisterns: Prominent secondary to involutional change. Intracranial vasculature: There is atherosclerotic calcification of the cavernous carotid and vertebr al arteries. Calvarium: Unremarkable. Sinuses and mastoids: The visualized paranasal sinuses are clear. There is a small left mastoid effus ion. The right mastoid air cells are well pneumatized. Orbits: The bony orbits are grossly intact. IMPRESSION: There is no hemorrhage, mass effect, or evidence of acute territorial ischemia by CT crit carrie noting a motion compromised examination. Electronically signed by: Alejandro Tom M.D. 09/14/2018 10:13 AM
[2018-09-14] MEDS ORDERED: POTASSIUM CHLORIDE PWD 20 MEQ PACK PO ONE (10:15)
--- NOTE | 2018-09-14 10:39 | Cardiology Progress Note ---
Date of Service September 14, 2018 Assessment & Plan (1) Interstitial lung disease: 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 Pacemaker extracted 09/01/2018 without complication. Remains sinus rhythm/tachycardia with 2-1 AV block on telemetry. Episode of worsening respiratory failure noted with increasing interstitial changes on chest x-ray, worsening hypoxia failure Findings are suggestive of chronic interstitial lung disease with superimposed ARDS Initial pulmonary status appears to be improving slightly however renal function is declined. Patient remains significantly hypertensive Recommendations begin nitrates with Nitropaste 1 inch topically every 6 hours for blood pressure control avoiding IV infusion initially If extubated would resume amlodipine for hypertension Patient remains tenuous and status discussed once again in detail with family (2) Pulmonary embolus: (3) Bacteremia due to methicillin susceptible Staphylococcus aureus (MSSA): (4) Mobitz type 2 second degree atrioventricular block: 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 Pacemaker extracted 09/01/2018 without complication. Remains sinus rhythm/tachycardia with 2-1 AV block on telemetry. (5) Infection of pacemaker pocket: Continue current antibiotic therapy per direction of infectious disease. Subjective Patient seen and examined, chart medications telemetry reviewed. Appreciate ICU care and plans Patient remains intubated and sedated. Preliminary respiratory status appears to improved with less oxygen demands with improvement in chest x-ray however compromise in renal function Patient remains in sinus and sinus tachycardia with 2-1 AV block rates 55-60 without decline or pause Physical Exam Constitutional: + ill appearing; no acute distress Eyes: PERRL, conjunctivae normal, anicteric sclerae ENMT: Endotracheal tube in place Neck: trachea midline, no thyromegaly Respiratory: Auscultation: + diminished lung sounds, + crackles and + rales Cardiovascular: Rate/Rhythm: regular rate Heart Sounds: normal S1 and normal S2; no gallop Vessels: no JVD (Neck veins flat) and no carotid bruit Extremities: no edema (1+) 2-1 AV conduction present Gastrointestinal (Abdomen): Percussion/Palpation: abdomen soft Musculoskeletal: no cyanosis or clubbing, extremities motor strength 5/5 Skin: no rashes, warm and dry Results & Data Vital Signs (Past 12 Hours) Vital Signs Temp Pulse Resp BP Pulse Ox 09/14/18 10:26 36.4 C L 66 27 H 203/62 H 94 09/14/18 09:56 36.6 C 52 L 16 182/44 H 96 09/14/18 09:41 36.4 C L 54 L 16 182/47 H 97 09/14/18 09:23 36.6 C 54 L 16 173/33 H 97 09/14/18 09:00 54 L 16 188/50 H 97 09/14/18 08:00 53 L 16 191/42 H 98 09/14/18 07:57 54 L 16 98 09/14/18 07:00 36.8 C 49 L 16 126/57 L 99 09/14/18 06:00 54 L 140/57 L 96 09/14/18 05:17 52 L 16 98 09/14/18 04:00 36.9 C 53 L 169/58 H 99 09/14/18 03:53 53 L 16 99 09/14/18 03:00 48 L 135/51 L 97 09/14/18 02:00 49 L 144/56 H 99 09/14/18 01:00 37.0 C 52 L 166/60 H 99 09/14/18 00:25 52 L 17 100 09/14/18 00:00 52 L 146/54 H 98 09/13/18 23:00 51 L 131/51 L 98 (1) Pulmonary embolus Pulmonary embolism type: unspecified Chronicity: acute Acute cor pulmonale presence: without acute cor pulmonale Qualified Code(s): I26.99 - Other pulmonary embolism without acute cor pulmonale
[2018-09-14] MEDS ORDERED: MINERAL OIL ENEMA 133 ML BTL PR ONE (11:00)
[2018-09-14] MEDS: NITROGLYCERIN 2% OINTMENT 30GM TUBE EXT SCH ×3 (11:15→22:15)
[2018-09-14 12:06] LABS: Partial Thromboplastin Ratio 1.8
[2018-09-14] MEDS ORDERED: ALTEPLASE, RECOMBINANT 1 MG/ML 2ML VIAL IV ONE (13:05)
[2018-09-14] MEDS: IMPACT LIQD 1.0 CAL 1,000 ML BAG OG SCH (14:26)
[2018-09-14] MEDS: methylPREDNISolone 60 MG in SYRINGE 0 ML IV SCH ×2 (14:26→22:11)
--- NOTE | 2018-09-14 14:45 | Pharmacy Report ---
Pharmacy Glycemic Short Note 2 - Date of Service September 14, 2018 - Glycemic Short BSG Results (Last 24 hours): 09/13/18 09/13/18 09/13/18 15:53 18:09 21:23 Glucose 173 H POC Glucose 227 H 209 H 09/14/18 09/14/18 09/14/18 01:50 04:45 05:49 Glucose 251 H POC Glucose 237 H 295 H 09/14/18 09/14/18 08:47 09:40 Glucose POC Glucose 293 H 252 H Outpatient Anti-diabetic Regimen: * Metformin 500 mg po BID * Note: also on prednisone 10 mg po daily * A1c = 7.1% on 09/02/18 Risk Factors for Insulin Resistance: Steroids methlyprednisolone 60 mg q8h ASSESSMENT: 09/14 * Patient continues to be intubated, steroid reduced to 60 mg q8H * Insulin infusion started for elevated BSGs; currently running at 3.1 units/hr; BSGs slowly trending down- will give additional lantus dose * Carb ratio set for tube feeds at 4 (tightened) 09/13 * Steroids: Patient on solu-medrol 80 mg q8H; restarted lantus over NPH as frequency is q8(dosed slightly less than weight based stress of 3) and tighten correction factor/carb ratio as patient is also beginning tube feeds (this is similar to previous dosing on steroids) * Patient intubated this AM * BSGs well controlled yesterday, fasting this morning 186 after 125 mg dose of methylprednisolone (covered with 30 units of NPH PLAN FOR INPATIENT GLYCEMIC CONTROL: * Continue insulin infusion * Basal insulin: 15 units x1 * Bolus insulin * Carb ratio: 4 g CHO/unit covering tube feeds
[2018-09-14] MEDS ORDERED: INSULIN GLARGINE SOLOSTAR 100 UNITS/ML 3 ML PEN SC SCH (15:00)
--- NOTE | 2018-09-14 15:02 | Hospitalist Progress Note ---
Date of Service September 14, 2018 Assessment & Plan (1) Respiratory failure: Acute on Chronic Hypoxic Respiratory Failure Interstitial lung disease History of Sjogren's syndrome with lung involvement On chronic prednisone [address] chest ordered: Positive for right lower lobe pulmonary emboli Appreciate pulmonary input and recommendation IV Lasix as needed and BiPAP for shortness of breath Has been on intravenous Solu-Medrol and nebulized bronchodilator-changed to oral as of 09/09 We will change his steroid orally 50 mg daily and taper to continue 10 mg until she sees her roofing machine operator as an outpatient Condition got worse since last night with increasing shortness of breath and c rackles in the lungs with decreasing saturation Chest x-ray showed more congestion and requiring 100% FiO2 to maintain saturation Administered 40 of Lasix IV at around 930 and repeat another dose now at around 2 PM Discussed with social services coordinator and keg filler Condition got worse this morning 09/12 Was transferred to ICU for Cardene drip and the patient was made DNR Status post intubation last night 09/12 The family members wanted to have aggressive management for some time Remains on the vent with sedation as needed Management as per the keg filler Discussed with the keg filler Renal function has been deteriorating and so is patient's condition Will observe for tonight (2) Sepsis: Secondary to pacemaker site infection, bacteremia 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 Immunocompromised patient with Sjogren's syndrome on chronic steroid Rx S/Post removal of pacemaker on 09/01/2018 Wound culture: Positive for Pseudomonas and MSSA Blood cultures: Positive for MSSA Continue cefepime IV Appreciate ID input and recommendation -Will DC his IV cefepime and replaced with intravenous daptomycin PICC line has been placed and will continue daptomycin for 2 weeks White count has been increased Cefepime has been restarted and daptomycin continued We will continue current medications Acute renal failure: Noted to be since yesterday Hyponatremia-has been there for the last 3 or 4 days Appreciate nephrology input and recommendation Sodium level has come up to 128 No immediate indication for hemodialysis Kidney function has been getting worse with creatinine went up to more than 3 Renal ultrasound did not show any renal artery stenosis Nephrology on board Pulmonary embolism Has been on intravenous heparin Will likely change to Eliquis on discharge-we will discuss with roofing machine operator Will be discharged tomorrow on Eliquis/Xarelto Not yet ready to start oral medication Hypertension Amlodipine increased to 10 mg p.o. daily for better BP control Lisinopril 5 mg p.o. daily added Blood pressure noted to be very high since this morning Did not take her usual oral medications Nitropaste applied and will give 5 mg hydralazine IV Blood pressure is not controlled; will start Cardene drip and transfer the patient to ICU for better control of blood pressure Blood pressure is controlled now DM2 ISS Blood sugar has been noted to be high secondary to nasal steroid SSI-parameters have been changed DVT prophylaxis. On heparin drip Full code Disposition Pending DVT prophylaxis. Lovenox subcu Full code Discussed with the patient and the daughter Prognosis remains very poor Discussed with the daughters Overall condition has deteriorated Especially renal function has been worse Respiratory symptoms requiring mechanical ventilation and already has cardiac issues Overall picture suggests that she is going to go to multiorgan failure Prognosis remains poor-discussed with the son-in-law and younger daughter today Subjective 09/08 The patient was seen and examined in telemetry unit Complaints of weakness and shortness of breath on exertion Denies any symptoms at rest No fever and/or chills 09/09 The patient was seen and examined in telemetry unit He remains stable Denies any significant chest pain no palpitation Out of bed in a chair has been getting physical therapy 09/10 The patient was seen and examined in the telemetry unit She denies any significant symptoms Remains to be mild shortness of breath at rest She has been waiting to go to [facility] 09/11 The patient was seen and examined today in telemetry unit in presence of her youngest daughter She has been noted to have high blood pressure of systolic more than 200 with increasing shortness of breath since this morning She has been requiring BiPAP with 100% FiO2 to maintain saturation Denies any significant pain 09/12 Condition got worse the patient was transferred to ICU Made DNR Morphine as needed for pain control 09/13 Patient was seen and examined in ICU She is a status post intubation last night The family members wanted to reverse the DNR and ask for aggressive management at this time 09/14 The patient was seen and examined in ICU She remains on mechanical ventilator and trial has been ongoing to extubate her She has been having a lot of distress on vent during examination Has been getting IV Versed Review of Systems Review of Systems: Sedated on vent. In the process of extubation Physical Exam Physical Exam: Sedated on vent. Sedation as needed Constitutional: + ill appearing, + thin and comfortable Eyes: Closed ENMT: external ear and nose normal, oropharynx normal Mallampati Class: II Neck: trachea midline, no thyromegaly normal visual inspection; neck nontender Respiratory: + respiratory distress, + labored breathing, + retractions and + uses accessory muscles Auscultation: + diminished lung sounds and + crackles (Pronounced bilaterally at the bases) Cardiovascular: Rate/Rhythm: regular rate and regular rhythm Heart Sounds: normal S1 and normal S2 Extremities: no edema Chest (Breasts): Chest: + pacemaker (Left infraclavicular pacemaker pocket with ongoing mild erythema, and drainage from incision site, unchanged compared to yesterday. She states that it was tender to palpation yesterday and this has improved.) Gastrointestinal (Abdomen): Inspection/Auscultation: abdomen normal to inspection and normal bowel sounds Percussion/Palpation: abdomen soft Musculoskeletal: no cyanosis or clubbing, extremities motor strength 5/5 Spine: thoracic spine normal to inspection and lumbar spine normal to inspection; no pain with cervical ROM and no cervical spinal tenderness Skin: normal turgor and + wound (Pacemaker pocket with erythema drainage); no rashes Neurologic: awake Motor/Sensory: no sensory deficit Psychiatric: A+Ox3, euthymic affect Orientation: alert, oriented x 3 and cooperative Lymphatic: no cervical or axillary lymphadenopathy no inguinal lymphadenopathy Results & Data Vital Signs (Past 12 Hours) Vital Signs Temp Pulse Resp BP Pulse Ox 09/14/18 14:32 64 28 H 94 09/14/18 12:00 65 28 H 220/79 H 93 09/14/18 11:13 36.5 C 65 27 H 203/62 H 91 09/14/18 10:36 66 30 H 94 09/14/18 10:26 36.4 C L 66 27 H 203/62 H 94 09/14/18 09:56 36.6 C 52 L 16 182/44 H 96 09/14/18 09:41 36.4 C L 54 L 16 182/47 H 97 09/14/18 09:23 36.6 C 54 L 16 173/33 H 97 09/14/18 09:00 54 L 16 188/50 H 97 09/14/18 08:00 53 L 16 191/42 H 98 09/14/18 07:57 54 L 16 98 09/14/18 07:00 36.8 C 49 L 16 126/57 L 99 09/14/18 06:00 54 L 140/57 L 96 09/14/18 05:17 52 L 16 98 09/14/18 04:00 36.9 C 53 L 169/58 H 99 09/14/18 03:53 53 L 16 99 09/14/18 03:00 48 L 135/51 L 97 Laboratory Results Short CBC 09/14/18 Range/Units 04:45 WBC 11.64 H (4.8-10.8) K/uL Hgb 7.5 L (12.0-16.0) g/dL Hct 21.8 L (37-47) % Plt Count 161 (130-400) K/uL BMP 09/13/18 09/14/18 15:53 04:45 Sodium 128 L 125 L Potassium 3.4 L 3.7 Chloride 88 L 86 L Carbon Dioxide 27 27 BUN 54 H 69 H Creatinine 2.40 H D 3.11 H D Glucose 173 H 251 H Calcium 8.0 L 7.9 L Liver Function 09/14/18 Range/Units 04:45 Total Bilirubin 0.5 (0.2-1) mg/dl AST 36 (15-37) U/L ALT 34 (12-78) U/L Alkaline Phosphatase 57 (45-117) U/L Albumin 1.9 L (3.4-5.0) gm/dl Medications Administered Current Inpatient Medications Acetaminophen (Tylenol) 650 mg PO Q4H PRN PRN Reason: Pain or Fever Stop: 09/30/18 03:45 Last Admin: 09/10/18 22:01 Dose: 650 mg Documented by: Al Hydrox/Mg Hydrox/Simethicone (Maalox) 30 ml PO Q6H PRN PRN Reason: Dyspepsia Stop: 10/07/18 09:11 Last Admin: 09/07/18 09:39 Dose: 30 ml Documented by: Albuterol (Ventolin Hfa) 2 puffs INH Q6H PRN PRN Reason: Shortness Of Breath Stop: 10/01/18 17:29 Amlodipine Besylate (Norvasc) 10 mg PO DAILY NYDIA Stop: 10/05/18 08:59 Last Admin: 09/12/18 09:37 Dose: Not Given Documented by: Artificial Tears (Artificial Tears) 1 drops OP HS NYDIA Stop: 09/30/18 20:59 Last Admin: 09/13/18 21:30 Dose: 1 drops Documented by: Clotrimazole (Mycelex) 10 mg BUCCAL [id number] NYDIA Stop: 09/19/18 18:59 Last Admin: 09/14/18 14:26 Dose: Not Given Documented by: Dextrose (Dextrose 50%) 25 - 50 ml IV UD PRN; Protocol PRN Reason: Hypoglycemia Protocol Stop: 09/30/18 03:45 Docusate Sodium (Colace) 100 mg PO DAILY NYDIA Stop: 10/13/18 08:59 Last Admin: 09/14/18 07:45 Dose: 100 mg Documented by: Docusate Sodium (Colace) 100 mg PO BID PRN PRN Reason: CONSTIPATION Stop: 09/30/18 06:29 Enteral Nutritional Formula (Impact 1.0 Fred) 1,000 ml OG UD NYDIA; Protocol Stop: 10/13/18 09:59 Last Admin: 09/14/18 14:26 Dose: 1,000 ml Documented by: Fentanyl Citrate (Fentanyl Citrate) 50 mcg IV Q2H PRN PRN Reason: Moderate Pain (4,5,6) Stop: 09/27/18 04:22 Last Admin: 09/14/18 03:58 Dose: 50 mcg Documented by: Glucagon (Glucagen) 1 mg SQ UD PRN; Protocol PRN Reason: Hypoglycemia Protocol Stop: 09/30/18 03:45 Glucose (Glucose 40%) 15 - 30 gm PO UD PRN; Protocol PRN Reason: Hypoglycemia Protocol Stop: 09/30/18 03:45 Glucose (Dex4 Glucose) 4 - 8 tabs PO UD PRN; Protocol PRN Reason: Hypoglycemia Protocol Stop: 09/30/18 03:45 Heparin Sodium (Beef Lung) (Heparin Sod 10 Unit/Ml Flush) 5 ml FLUSH PRN PRN PRN Reason: Flush Stop: 10/09/18 23:03 Promethazine HCl 12.5 mg/ (Sodium Chloride) 50.5 mls @ 202 mls/hr IV Q6H PRN PRN Reason: Nausea And Vomiting Stop: 09/30/18 00:49 Last Infusion: 09/07/18 12:07 Dose: Infused Documented by: Heparin Sodium/Dextrose (Heparin Sodium/Dextrose) 25,000 units in 500 mls @ 15 mls/hr IV .Q24H NYDIA; Protocol Stop: 10/05/18 15:29 Last Titration: 09/14/18 14:46 Dose: 750 units/hr, 15 mls/hr Documented by: Cefepime HCl 2,000 mg/ Syringe 20 mls @ 5 mls/min IV Q24H [facility]; Protocol Stop: 09/21/18 07:59 Last Admin: 09/13/18 22:11 Dose: 5 mls/min Documented by: Daptomycin 400 mg/ Syringe 8 mls @ 4 mls/min IV Q48H [facility]; Protocol Stop: 09/23/18 17:59 Parenteral Electrolytes (Normosol-R) 1,000 mls @ 80 mls/hr IV .[id number] [facility] Stop: 10/13/18 08:59 Last Admin: 09/14/18 08:35 Dose: 80 mls/hr Documented by: Famotidine 20 mg/ Syringe 5 mls @ 2.5 mls/min IV DAILY [facility] Stop: 10/12/18 20:59 Last Admin: 09/14/18 08:35 Dose: 2.5 mls/min Documented by: Levothyroxine Sodium 25 mcg/ (Syringe) 1.25 mls @ 2 mls/min IV DAILY@0900 [facility] Stop: 10/14/18 08:59 Last Admin: 09/14/18 08:34 Dose: 2 mls/min Documented by: Insulin Human Regular 250 (units/ Sodium Chloride) 250 mls @ 3.7 mls/hr IV .Q24H [facility]; Protocol Stop: 10/14/18 06:14 Last Titration: 09/14/18 14:40 Dose: 3.1 units/hr, 3.1 mls/hr Documented by: Sodium Chloride (Nss) 250 mls @ 15 mls/hr IV .[id number] PRN PRN Reason: For Transfusion Stop: 10/14/18 07:34 Methylprednisolone 60 mg/ (Syringe) 0.96 mls @ 1.5 mls/min IV Q8H [facility] Stop: 10/12/18 21:59 Last Admin: 09/14/18 14:26 Dose: 1.5 mls/min Documented by: Insulin Aspart (Novolog Flexpen) 0 units SC Q4H [facility]; Protocol Stop: 10/09/18 16:29 Last Admin: 09/14/18 13:54 Dose: 5 units Documented by: Insulin Glargine (Lantus Solostar Pen) 15 units SC TODAY@1500 NYDIA Stop: 10/14/18 14:59 Ipratropium [place] (Atrovent 0.02% 0.5mg/2.5ml) 0.5 mg INH Q6R [facility] Stop: 10/03/18 13:59 Last Admin: 09/14/18 14:08 Dose: 0.5 mg Documented by: Ipratropium [place] (Atrovent 0.02% 0.5mg/2.5ml) 0.5 mg INH Q2H PRN PRN Reason: Shortness Of Breath Or Wheezing Stop: 10/11/18 05:59 Levalbuterol HCl (Xopenex 0.63 Mg/3 Ml Neb) 0.63 mg NEB Q6R [facility] Stop: 10/03/18 13:59 Last Admin: 09/14/18 14:08 Dose: 0.63 mg Documented by: Levalbuterol HCl (Xopenex 1.25mg/0.5ml Neb) 1.25 mg INH Q2H PRN PRN Reason: Shortness Of Breath Or Wheezing Stop: 10/11/18 05:59 Levothyroxine Sodium (Synthroid) 50 mcg PO DAILYBB [facility] Stop: 09/30/18 06:29 Last Admin: 09/13/18 06:40 Dose: 50 mcg Documented by: Lisinopril (Zestril) 20 mg PO QAM [facility] Stop: 10/12/18 08:59 Last Admin: 09/12/18 09:37 Dose: Not Given Documented by: Midazolam HCl (Versed) 2 mg IV Q2H PRN PRN Reason: agitation/anxiety Stop: 10/13/18 04:56 Last Admin: 09/14/18 05:55 Dose: 2 mg Documented by: Miscellaneous (Carbohydrates For Hypoglycemia) 15 - 30 gm PO UD PRN PRN Reason: Hypoglycemia Treatment Stop: 09/30/18 03:45 Miscellaneous Information (Consult Glycemic Management Pharmacy) 1 ea N/A UD PRN PRN Reason: Consult Stop: 10/02/18 07:11 Morphine Sulfate (Morphine Sulfate) 2 mg IV Q2H PRN PRN Reason: Pain Stop: 09/26/18 13:50 Last Admin: 09/13/18 02:40 Dose: 2 mg Documented by: Nitroglycerin (Nitro-Bid 2%) 1 inch EXT Q6H NYDIA Stop: 10/14/18 10:59 Last Admin: 09/14/18 11:15 Dose: 1 inch Documented by: Marshalera 100mcg/5mcg~ Non-Formulary Patient's Own Med 2 ea PO BID NYDIA Stop: 10/09/18 20:59 Last Admin: 09/13/18 08:48 Dose: Not Given Documented by: Prednisone (Prednisone) 10 mg PO QAM NYDAI Stop: 10/03/18 08:59 Last Admin: 09/03/18 08:48 Dose: 10 mg Documented by: Rosuvastatin Calcium (Crestor) 10 mg PO DAILY [facility] Stop: 09/30/18 08:59 Last Admin: 09/14/18 07:45 Dose: 10 mg Documented by: Tramadol HCl (Ultram) 25 mg PO Q4H PRN PRN Reason: Pain Stop: 09/30/18 03:45
[2018-09-14 16:18] LABS: Hematocrit (blood only) 29.9 % (37-47); Hemoglobin 10.6 g/dL (12.0-16.0)
[2018-09-14 16:29] LABS: BUN Creatinine Ratio 23.3 (10-20); Calcium 8.7 mg/dl (8.5-10.1); Creatinine Clr Calc Pharmacy 13.4 ml/min; Est GFR (African American) 13.3; Est GFR (Non-African American) 11.5; Potassium 4.3 mmol/L (3.5-5.1)
--- NOTE | 2018-09-14 16:50 | Nephrology Progress Note ---
Date of Service September 14, 2018 Assessment & Plan (1) Acute on chronic renal failure: baseline creatinine 0.6-0.8. at baseline until 09/13 am when creatinine increased to 1.8, w/ steady uptrend to 3.1 this am, 3.5 this pm. also anuric. while AIN is certainly possible, likelier cause here will be ATN from labile renal perfusion given rapidly changing blood pressures/HR; also s/p recent lasix infusion and initiation of IV ACEI; also concern here for recurrent or new infection though no clear source found given increased WBC (increased before recent intensification of steroids) -daily bmp -her SBP has been labile but more stable; at this point w/ elevated SBP would stop normosol -ordered UACM and urine cx; findings show contaminated specimen w/ budding yeast, very concentrated sediment and ketones; not particularly consistent w/ UTI but very consistent w/ vol depletion as are urine chemistries -no HEIDI or obstruction on u/s -no current indication for dialysis though cannot rule out at least consideration of this if she remains full code; she is a poor candidate for dialysis - likely to need at least 2 wks of tx, to face infection and arrhythmia issues more frequently if this is started; did d/w family briefly; they inform me POA not inclined to pursue dialysis currently which I think is reasonable; f/u goals of care discussions (2) Hyponatremia: suspect from volume OL at this point though she is not grossly overloaded on exam >> she is 6. 2L positive past 48 hrs; sNa levels are abnormal though stable in mid 120s>> TSH wnl, serum osms are near normal -recheck in am -hold normosol (3) Oliguria: anuric x 48 hrs > stop IVF at this point. 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 cardiology added nitrates today. given renal failure would avoid ACEI and diuretics. for now hold normosol, cont nitrates; f/u further cardiology recs Present on Admission?: Yes Subjective pt with less sedation to day and has been more agitated w/ higher sbp at times. has needed 2 versed doses includign one mid afternoon to protect lines/tubes. remains anuric w/ worsening renal function. family at bedside - nephew, granddaughter Review of Systems Review of Systems: Unobtainable due to endotracheal tube Physical Exam Constitutional: well developed and well nourished intubated lightly sedated ENMT: Ears: no external ear abnormality Nose: no external nose abnormality Mouth: + dry oral mucous membranes Neck: no nuchal rigidity Respiratory: normal respiratory effort Auscultation: + diminished lung sounds Cardiovascular: Rate/Rhythm: regular rate and regular rhythm Extremities: no edema Gastrointestinal (Abdomen): Inspection/Auscultation: + abdomen distended (slight) and normal bowel sounds Percussion/Palpation: abdomen soft; abdomen nontender Musculoskeletal: quach, opens eyes briefly does not track Skin: no rashes, warm and dry Neurologic: sedated Genitourinary: hull w/ scant urine Results & Data Vital Signs (Past 12 Hours) Vital Signs Temp Pulse Resp BP Pulse Ox 09/14/18 14:32 64 28 H 94 09/14/18 12:00 65 28 H 220/79 H 93 09/14/18 11:13 36.5 C 65 27 H 203/62 H 91 09/14/18 10:36 66 30 H 94 09/14/18 10:26 36.4 C L 66 27 H 203/62 H 94 09/14/18 09:56 36.6 C 52 L 16 182/44 H 96 09/14/18 09:41 36.4 C L 54 L 16 182/47 H 97 09/14/18 09:23 36.6 C 54 L 16 173/33 H 97 09/14/18 09:00 54 L 16 188/50 H 97 09/14/18 08:00 53 L 16 191/42 H 98 09/14/18 07:57 54 L 16 98 09/14/18 07:00 36.8 C 49 L 16 126/57 L 99 09/14/18 06:00 54 L 140/57 L 96 09/14/18 05:17 52 L 16 98 Laboratory Results Abnormal lab results 09/13/18 09/13/18 09/14/18 Range/Units 18:09 21:23 01:50 WBC (4.8-10.8) K/uL RBC (4.2-5.4) M/uL Hgb (12.0-16.0) g/dL Hct (37-47) % MPV (7.4-10.4) fL Immature Gran # (Auto) (0.00-0.02) K/uL Neut # (Auto) (1.4-6.5) K/uL Lymph # (Auto) (1.2-3.4) K/uL APTT (21.0-31.0) Seconds Sodium (136-145) mmol/L Chloride (98-107) mmol/L Anion Gap (3-11) BUN (7-18) mg/dl Creatinine (0.6-1.2) mg/dl BUN/Creatinine Ratio (10-20) Glucose (70-99) mg/dl POC Glucose 227 H 209 H 237 H (70-99) Calcium (8.5-10.1) mg/dl Total Protein (6.4-8.2) gm/dl Albumin (3.4-5.0) gm/dl Albumin/Globulin Ratio (0.9-2) Crossmatch 09/14/18 09/14/18 09/14/18 Range/Units 04:45 04:45 04:45 WBC 11.64 H (4.8-10.8) K/uL RBC 2.37 L (4.2-5.4) M/uL Hgb 7.5 L (12.0-16.0) g/dL Hct 21.8 L (37-47) % MPV 10.5 H (7.4-10.4) fL Immature Gran # (Auto) 0.03 H (0.00-0.02) K/uL Neut # (Auto) 11.12 H (1.4-6.5) K/uL Lymph # (Auto) 0.25 L (1.2-3.4) K/uL APTT 72.9 H* (21.0-31.0) Seconds Sodium 125 L (136-145) mmol/L Chloride 86 L (98-107) mmol/L Anion Gap 12.0 H (3-11) BUN 69 H (7-18) mg/dl Creatinine 3.11 H D (0.6-1.2) mg/dl BUN/Creatinine Ratio 22.2 H (10-20) Glucose 251 H (70-99) mg/dl POC Glucose (70-99) Calcium 7.9 L (8.5-10.1) mg/dl Total Protein 5.4 L (6.4-8.2) gm/dl Albumin 1.9 L (3.4-5.0) gm/dl Albumin/Globulin Ratio 0.5 L (0.9-2) Crossmatch 09/14/18 09/14/18 09/14/18 Range/Units 05:49 07:45 08:47 WBC (4.8-10.8) K/uL RBC (4.2-5.4) M/uL Hgb (12.0-16.0) g/dL Hct (37-47) % MPV (7.4-10.4) fL Immature Gran # (Auto) (0.00-0.02) K/uL Neut # (Auto) (1.4-6.5) K/uL Lymph # (Auto) (1.2-3.4) K/uL APTT (21.0-31.0) Seconds Sodium (136-145) mmol/L Chloride (98-107) mmol/L Anion Gap (3-11) BUN (7-18) mg/dl Creatinine (0.6-1.2) mg/dl BUN/Creatinine Ratio (10-20) Glucose (70-99) mg/dl POC Glucose 295 H 293 H (70-99) Calcium (8.5-10.1) mg/dl Total Protein (6.4-8.2) gm/dl Albumin (3.4-5.0) gm/dl Albumin/Globulin Ratio (0.9-2) Crossmatch See Detail 09/14/18 09/14/18 09/14/18 Range/Units 09:40 11:40 15:48 WBC (4.8-10.8) K/uL RBC (4.2-5.4) M/uL Hgb 10.6 L D (12.0-16.0) g/dL Hct 29.9 L (37-47) % MPV (7.4-10.4) fL Immature Gran # (Auto) (0.00-0.02) K/uL Neut # (Auto) (1.4-6.5) K/uL Lymph # (Auto) (1.2-3.4) K/uL APTT 49.0 H* (21.0-31.0) Seconds Sodium (136-145) mmol/L Chloride (98-107) mmol/L Anion Gap (3-11) BUN (7-18) mg/dl Creatinine (0.6-1.2) mg/dl BUN/Creatinine Ratio (10-20) Glucose (70-99) mg/dl POC Glucose 252 H (70-99) Calcium (8.5-10.1) mg/dl Total Protein (6.4-8.2) gm/dl Albumin (3.4-5.0) gm/dl Albumin/Globulin Ratio (0.9-2) Crossmatch 09/14/18 Range/Units 15:48 WBC (4.8-10.8) K/uL RBC (4.2-5.4) M/uL Hgb (12.0-16.0) g/dL Hct (37-47) % MPV (7.4-10.4) fL Immature Gran # (Auto) (0.00-0.02) K/uL Neut # (Auto) (1.4-6.5) K/uL Lymph # (Auto) (1.2-3.4) K/uL APTT (21.0-31.0) Seconds Sodium 124 L (136-145) mmol/L Chloride 86 L (98-107) mmol/L Anion Gap 13.0 H (3-11) BUN 82 H (7-18) mg/dl Creatinine 3.53 H D (0.6-1.2) mg/dl BUN/Creatinine Ratio 23.3 H (10-20) Glucose 195 H (70-99) mg/dl POC Glucose (70-99) Calcium (8.5-10.1) mg/dl Total Protein (6.4-8.2) gm/dl Albumin (3.4-5.0) gm/dl Albumin/Globulin Ratio (0.9-2) Crossmatch Diagnostic Findings cxr this am 1. Satisfactory positioning of life-support lines and tubes as above. 2. Cardiomegaly with mildly improved pulmonary edema pattern. 3. Trace pleural effusions. (1) Acute on chronic renal failure Acute renal failure type: unspecified Chronic kidney disease stage: stage 3 (moderate) Qualified Code(s): N17.9 - Acute kidney failure, unspecified; N18.3 - Chronic kidney disease, stage 3 (moderate)
[2018-09-14] MEDS ORDERED: DAPTOmycin 400 MG in SYRINGE 0 ML IV SCH (18:00)
[2018-09-14] MEDS: MoRPHine SULFATE 2 MG/ML CARP IV PRN (18:26)
[2018-09-14] MEDS: CEFEPIME 2,000 MG in SYRINGE 7.5 ML IV SCH (22:12)
[2018-09-14] MEDS: ARTIFICIAL TEARS OP SCH (22:42)
[2018-09-15 00:36] LABS: Hematocrit (blood only) 28.4 % (37-47); Hemoglobin 10.1 g/dL (12.0-16.0)
[2018-09-15] MEDS: LEVALBUTEROL HCL 0.63 MG/3 ML NEB NEB SCH ×2 (01:11→07:23)
[2018-09-15] MEDS: IPRATROPIUM BROMIDE NEB SOLN 0.02% 2.5 ML VIAL INH SCH ×2 (01:11→07:23)
[2018-09-15] MEDS: MIDAZOLAM HCL 1 MG/ML 2ML VIAL IV PRN (01:39)
[2018-09-15] MEDS: fentaNYL citrate 100 MCG/2 ML VIAL IV PRN (01:39)
[2018-09-15] MEDS: INSULIN ASPART 100 UNITS/ML 3 ML PEN SC SCH ×2 (01:49→05:21)
[2018-09-15] MEDS: NITROGLYCERIN 2% OINTMENT 30GM TUBE EXT SCH (05:14)
[2018-09-15] MEDS: methylPREDNISolone 60 MG in SYRINGE 0 ML IV SCH (05:16)
[2018-09-15 05:28] LABS: Hematocrit (blood only) 22.4 % (37-47); Hemoglobin 7.9 g/dL (12.0-16.0); Immature Granulocytes # (auto) 0.04 K/uL (0.00-0.02); Immature Granulocytes % (auto) 0.3 %; Lymphocytes # (auto) 0.17 K/uL (1.2-3.4); Lymphocytes % (auto) 1.4 %; Mean Corpuscular Hgb Conc 35.3 g/dL (32-36); Mean Corpuscular Volume 89.6 fL (80-100); Mean Platelet Volume 10.3 fL (7.4-10.4); Monocytes # (auto) 0.33 K/uL (0.11-0.59); Monocytes % (auto) 2.6 %; Neutrophils # (auto) 11.92 K/uL (1.4-6.5); Neutrophils % (auto) 95.7 %; Platelet Count 139 K/uL (130-400); RDW Coefficient of Variation 13.9 % (11.5-14.5); RDW Standard Deviation 45.9 fL (36.4-46.3); White Blood Count 12.46 K/uL (4.8-10.8)
[2018-09-15] MEDS ORDERED: SODIUM CHLORIDE 0.9% 250 ML IV PRN (05:41)
[2018-09-15 05:47] LABS: Partial Thromboplastin Ratio 2.6
[2018-09-15 05:50] LABS: RBC Morphology Unremarkable
[2018-09-15 05:58] LABS: BUN Creatinine Ratio 27.1 (10-20); Creatinine Clr Calc Pharmacy 17.2 ml/min; Est GFR (African American) 17.9; Est GFR (Non-African American) 15.5; Magnesium 1.8 mg/dl (1.8-2.4); Phosphorus 3.4 mg/dl (2.5-4.9); Potassium 3.2 mmol/L (3.5-5.1)
[2018-09-15 06:01] LABS: iSTAT Art Bld Gas pCO2 Correct 39 mmHg (35-46); iSTAT Art Bld Gas pH Corrected 7.392 (7.35-7.45); iSTAT Arterial Blood Gas HCO3 24 meg/L (19-24); iSTAT Arterial Blood Gas pCO2 39 mmHg (35-46); iSTAT Arterial Blood Gas pH 7.39 (7.35-7.45); iSTAT Carbon Dioxide 25 mEq/l (24-31); iSTAT Site Art Line
--- NOTE | 2018-09-15 07:31 | Critical Care Progress Note ---
Date of Service September 15, 2018 Assessment & Plan (1) Admitted to intensive care unit: María Kunz is a 83 y/o female with hx of chronic respiratory failure secondary to pulmonary fibrosis. Original visit was for removal of infected pace maker. Today, family would like to proceed with extubation and comfort care. They are aware that patient's lung disease is end stage. They verbalized patient would never want to be in a [facility] care [facility] facility. They are aware t hat this will most likely led to patient's . After discussion with family, plan is to extubate to oxymask. Code status changed to reflect DNR/DNI. Neuro - Sedation with Versad - unable to follow simple commands, daughter at bedside POA. Cardiac/Vascular - had an infected pacemaker which required removal. - currently bradycardic in 50s - Mobitz type 2 second degree heart block - Hold home anti-hypertensives Systolic values have been elevated ranging overnight 137-225; Diastolic 39-60. Pulse in low 60s bpm. Pulm Currently acute on chronic respiratory failure for end stage lung disease. 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 . Requires 2L O2 at home. - diagnosed on 09/05/18 with PEs in RLL, currently on Heparin drip. - currently appears to have acute lung injury requiring mechanical ventilation - maintain sats below 98% - Vent settings: hopes of possible extubation today, but failed CPAP and then received AM versad. - Pulmonary fibrosis with pulmonary edema that was treated with diuretics. - Currently on Solu-medrol 60mg q8h. GI - NG tube - Diet: Enteral Nutritional Formula [impact 1.0 sravani] 1,000mL OG UD Nataly - Famotidine 20mg IV ordered for GI ppx - Hemoccult stools to check for GI bleed Renal/Lytes - Hyponatremic value 09/14 AM of 125, has been hyponatremic for numerous days with values ranging 124-128. This AM value improved to 133. - Elevated creatinine with peak yesterday of 3.53 that improved today to 2.76 - Nephro consulted - IVFs Normosol @ 80mL/hr RADHA Molina Yes Endo DM2 - Insulin Aspart * BSG range 120-160 * CF: 20 * INS:CHO - 1 unit per 6 CHO Hypothyroid * Synthroid 25mcg IV Heme - Leukocytosis continued this AM of 12.46, slightly increased from yesterday. - 09/14 Hgb 8.7-->7.5 worsening anemia, gave one unit of pRBCs. - 09/15 Hgb 7.9 --> one unit of blood ordered for transfusion. Will trend H&H today q8h x2. - Platelets 161 -On 09/14 HIT score: 3, check heparin antibody ordered - pending. ID Wound culture positive (08/31) for Pseudomonas and MSSA * treating with Cefepime + Daptomycin: renally adjusted - Repeat blood cultures on 09/13 NGTD - Blood cultures negative drawn on 09/02 - Urine Legionella Ag pending Lines Art line: left right single lumen picc right 18g peripheral IV - current with restraints as well DVT ppx - Heparin drip Resuscitation status - Changed to DNR/DNI. Supervising Physician Co-Signing Physician Notes Dr. Zabala was resident physician during care of patient. I separately evaluated patient for eid portions of the history and the exam. I was present during the critical portion of medical decision making, and I discussed the case with the resident. I generally agree with the findings and plan. I had an extensive discussion with all family members present at the bedside. All were in agreement that the patient has had long-standing wishes of no half-way placement and had long-standing DNR/DNI which was recently reversed in the setting of superior hypoxemia and respiratory distress. Over the last 48 hours the patient's pulmonary function has not significantly improved and she is certainly in an end-stage medical condition with a DLCO of 36% which is likely gotten worse acutely. There has not been significant improvement in the patient's renal function and the patient's mental status also is decreased. All family members present in agreement that this is a undesirable condition and contrary to the patient's long health wishes regarding her medical care and desire to stop life-sustaining treatments. We will proceed with terminal extubation without bridging of a noninvasive ventilator. If the patient is experiencing any aspects of respiratory distress we will proceed with narcotic medication and focus on comfort. I have personally spent 50 minutes of critical care time in the direct management of this patient. This is a life/limb threatening event. This includes time spent evaluating patient, direct bedside care, chart review, placing orders, interpretation of diagnostic studies, discussion with consultants, patient, and/or family members regarding treatment decisions, as well as other required patient management activities. This time is exclusive of all separately billable procedures, and teaching time and separate from and in addition to any other critical care service time. Subjective Caveat: History limited by AMS. Daughter notes that patient communicated want to have ET tube removed and did not want to have re-intubation. At bedside, she is not following simple commands. Daughter patient's POA, would like to have patient extubated and kept comfortable with no further heroic interventions in case of decompensation. Family is aware that this will most likely led to patient's . Family is in agreement with their wishes to extubate and keep patient as comfortable as possible. Review of Systems Review of Systems: Unobtainable due to endotracheal tube Physical Exam Constitutional: + ill appearing Neck: trachea midline; no neck crepitus Respiratory: no respiratory distress Auscultation: + diminished lung sounds (at bases) and + crackles (faint at bases) Cardiovascular: Rate/Rhythm: regular rhythm and + bradycardic Extremities: + pedal edema (trace pitting) Gastrointestinal (Abdomen): Inspection/Auscultation: abdomen not distended Percussion/Palpation: abdomen soft Skin: no rashes, warm and dry Neurologic: eyes open to voice, but unable to follow simple commands. Results & Data Vital Signs (Past 12 Hours) Vital Signs Temp Pulse Pulse Pulse Resp BP BP 09/15/18 06:17 36.6 C 53 L 16 217/53 H 09/15/18 05:00 60 60 16 223/60 H 09/15/18 04:55 61 19 09/15/18 04:00 225/57 H 09/15/18 03:00 96 H 96 H 20 137/40 L 09/15/18 02:00 37 C 65 65 16 147/39 H 09/15/18 01:16 57 L 17 09/15/18 01:00 57 L 57 L 16 195/47 H 09/15/18 00:00 58 L 198/47 H 09/14/18 22:45 63 22 09/14/18 21:49 56 L 17 09/14/18 20:00 128/82 Pulse Ox 09/15/18 06:17 95 09/15/18 05:00 95 09/15/18 04:55 95 09/15/18 04:00 09/15/18 03:00 90 09/15/18 02:00 90 09/15/18 01:16 98 09/15/18 01:00 97 09/15/18 00:00 09/14/18 22:45 97 09/14/18 21:49 99 09/14/18 20:00 Laboratory Results Laboratory Results - last 24 hr 09/14/18 09/14/18 09/14/18 04:45 07:45 08:47 WBC RBC Hgb Hct MCV MCH MCHC RDW Std Deviation RDW Coeff of Gabriel Plt Count MPV Immature Gran % (Auto) Neut % (Auto) Lymph % (Auto) Eaton % (Auto) Eos % (Auto) Baso % (Auto) Immature Gran # (Auto) Neut # (Auto) Lymph # (Auto) Eaton # (Auto) Eos # (Auto) Baso # (Auto) RBC Morphology APTT PTT Ratio Sample Site POC pH POC pCO2 POC pO2 POC HCO3 POC Total CO2 POC Base Excess ABG pH (Temp Correct) ABG pCO2 (Temp Corrct POC ABG pO2 at Pt Temp POC ABG O2 Sat Wilian Test O2 Delivery Device POC O2 Rate Minute Ventilation Tidal Volume PEEP Sodium Potassium Chloride Carbon Dioxide Anion Gap BUN Creatinine Est Cr Clr Drug Dosing Est GFR ( Amer) Est GFR (Non-Af Amer) BUN/Creatinine Ratio Glucose POC Glucose 293 H Calcium Phosphorus Magnesium Heparin Dep Plt Ab React Heparin Dep Plt Ab OD Blood Type AB Positive Blood Type Recheck AB Positive Antibody Screen NEGATIVE Crossmatch See Detail 09/14/18 09/14/18 09/14/18 09:17 09:40 10:42 WBC RBC Hgb Hct MCV MCH MCHC RDW Std Deviation RDW Coeff of Gabriel Plt Count MPV Immature Gran % (Auto) Neut % (Auto) Lymph % (Auto) Eaton % (Auto) Eos % (Auto) Baso % (Auto) Immature Gran # (Auto) Neut # (Auto) Lymph # (Auto) Eaton # (Auto) Eos # (Auto) Baso # (Auto) RBC Morphology APTT PTT Ratio Sample Site POC pH POC pCO2 POC pO2 POC HCO3 POC Total CO2 POC Base Excess ABG pH (Temp Correct) ABG pCO2 (Temp Corrct POC ABG pO2 at Pt Temp POC ABG O2 Sat Wilian Test O2 Delivery Device POC O2 Rate Minute Ventilation Tidal Volume PEEP Sodium Potassium Chloride Carbon Dioxide Anion Gap BUN Creatinine Est Cr Clr Drug Dosing Est GFR ( Amer) Est GFR (Non-Af Amer) BUN/Creatinine Ratio Glucose POC Glucose 252 H 235 H Calcium Phosphorus Magnesium Heparin Dep Plt Ab React Pending Heparin Dep Plt Ab OD Pending Blood Type Blood Type Recheck Antibody Screen Crossmatch 09/14/18 09/14/18 09/14/18 11:40 11:40 12:38 WBC RBC Hgb Hct MCV MCH MCHC RDW Std Deviation RDW Coeff of Gabriel Plt Count MPV Immature Gran % (Auto) Neut % (Auto) Lymph % (Auto) Eaton % (Auto) Eos % (Auto) Baso % (Auto) Immature Gran # (Auto) Neut # (Auto) Lymph # (Auto) Eaton # (Auto) Eos # (Auto) Baso # (Auto) RBC Morphology APTT 49.0 H* PTT Ratio 1.8 Sample Site POC pH POC pCO2 POC pO2 POC HCO3 POC Total CO2 POC Base Excess ABG pH (Temp Correct) ABG pCO2 (Temp Corrct POC ABG pO2 at Pt Temp POC ABG O2 Sat Wilian Test O2 Delivery Device POC O2 Rate Minute Ventilation Tidal Volume PEEP Sodium Potassium Chloride Carbon Dioxide Anion Gap BUN Creatinine Est Cr Clr Drug Dosing Est GFR ( Amer) Est GFR (Non-Af Amer) BUN/Creatinine Ratio Glucose POC Glucose 230 H 217 H Calcium Phosphorus Magnesium Heparin Dep Plt Ab React Heparin Dep Plt Ab OD Blood Type Blood Type Recheck Antibody Screen Crossmatch 09/14/18 09/14/18 09/14/18 13:52 14:42 15:48 WBC RBC Hgb 10.6 L D Hct 29.9 L MCV MCH MCHC RDW Std Deviation RDW Coeff of Gabriel Plt Count MPV Immature Gran % (Auto) Neut % (Auto) Lymph % (Auto) Eaton % (Auto) Eos % (Auto) Baso % (Auto) Immature Gran # (Auto) Neut # (Auto) Lymph # (Auto) Eaton # (Auto) Eos # (Auto) Baso # (Auto) RBC Morphology APTT PTT Ratio Sample Site POC pH POC pCO2 POC pO2 POC HCO3 POC Total CO2 POC Base Excess ABG pH (Temp Correct) ABG pCO2 (Temp Corrct POC ABG pO2 at Pt Temp POC ABG O2 Sat Wilian Test O2 Delivery Device POC O2 Rate Minute Ventilation Tidal Volume PEEP Sodium Potassium Chloride Carbon Dioxide Anion Gap BUN Creatinine Est Cr Clr Drug Dosing Est GFR ( Amer) Est GFR (Non-Af Amer) BUN/Creatinine Ratio Glucose POC Glucose 212 H 211 H Calcium Phosphorus Magnesium Heparin Dep Plt Ab React Heparin Dep Plt Ab OD Blood Type Blood Type Recheck Antibody Screen Crossmatch 09/14/18 09/14/18 09/14/18 15:48 15:48 16:56 WBC RBC Hgb Hct MCV MCH MCHC RDW Std Deviation RDW Coeff of Gabriel Plt Count MPV Immature Gran % (Auto) Neut % (Auto) Lymph % (Auto) Eaton % (Auto) Eos % (Auto) Baso % (Auto) Immature Gran # (Auto) Neut # (Auto) Lymph # (Auto) Eaton # (Auto) Eos # (Auto) Baso # (Auto) RBC Morphology APTT PTT Ratio Sample Site POC pH POC pCO2 POC pO2 POC HCO3 POC Total CO2 POC Base Excess ABG pH (Temp Correct) ABG pCO2 (Temp Corrct POC ABG pO2 at Pt Temp POC ABG O2 Sat Wilian Test O2 Delivery Device POC O2 Rate Minute Ventilation Tidal Volume PEEP Sodium 124 L Potassium 4.3 D Chloride 86 L Carbon Dioxide 25 Anion Gap 13.0 H BUN 82 H Creatinine 3.53 H D Est Cr Clr Drug Dosing 13.4 Est GFR ( Amer) 13.3 Est GFR (Non-Af Amer) 11.5 BUN/Creatinine Ratio 23.3 H Glucose 195 H POC Glucose 215 H 206 H Calcium 8.7 Phosphorus Magnesium Heparin Dep Plt Ab React Heparin Dep Plt Ab OD Blood Type Blood Type Recheck Antibody Screen Crossmatch 09/14/18 09/14/18 09/14/18 17:59 19:08 20:06 WBC RBC Hgb Hct MCV MCH MCHC RDW Std Deviation RDW Coeff of Gabriel Plt Count MPV Immature Gran % (Auto) Neut % (Auto) Lymph % (Auto) Eaton % (Auto) Eos % (Auto) Baso % (Auto) Immature Gran # (Auto) Neut # (Auto) Lymph # (Auto) Eaton # (Auto) Eos # (Auto) Baso # (Auto) RBC Morphology APTT PTT Ratio Sample Site POC pH POC pCO2 POC pO2 POC HCO3 POC Total CO2 POC Base Excess ABG pH (Temp Correct) ABG pCO2 (Temp Corrct POC ABG pO2 at Pt Temp POC ABG O2 Sat Wilian Test O2 Delivery Device POC O2 Rate Minute Ventilation Tidal Volume PEEP Sodium Potassium Chloride Carbon Dioxide Anion Gap BUN Creatinine Est Cr Clr Drug Dosing Est GFR ( Amer) Est GFR (Non-Af Amer) BUN/Creatinine Ratio Glucose POC Glucose 183 H 186 H 170 H Calcium Phosphorus Magnesium Heparin Dep Plt Ab React Heparin Dep Plt Ab OD Blood Type Blood Type Recheck Antibody Screen Crossmatch 09/14/18 09/14/18 09/14/18 20:51 22:08 22:48 WBC RBC Hgb Hct MCV MCH MCHC RDW Std Deviation RDW Coeff of Gabriel Plt Count MPV Immature Gran % (Auto) Neut % (Auto) Lymph % (Auto) Eaton % (Auto) Eos % (Auto) Baso % (Auto) Immature Gran # (Auto) Neut # (Auto) Lymph # (Auto) Eaton # (Auto) Eos # (Auto) Baso # (Auto) RBC Morphology APTT PTT Ratio Sample Site POC pH POC pCO2 POC pO2 POC HCO3 POC Total CO2 POC Base Excess ABG pH (Temp Correct) ABG pCO2 (Temp Corrct POC ABG pO2 at Pt Temp POC ABG O2 Sat Wilian Test O2 Delivery Device POC O2 Rate Minute Ventilation Tidal Volume PEEP Sodium Potassium Chloride Carbon Dioxide Anion Gap BUN Creatinine Est Cr Clr Drug Dosing Est GFR ( Amer) Est GFR (Non-Af Amer) BUN/Creatinine Ratio Glucose POC Glucose 203 H 178 H 169 H Calcium Phosphorus Magnesium Heparin Dep Plt Ab React Heparin Dep Plt Ab OD Blood Type Blood Type Recheck Antibody Screen Crossmatch 09/14/18 09/14/18 09/15/18 23:53 23:57 03:03 WBC RBC Hgb 10.1 L Hct 28.4 L MCV MCH MCHC RDW Std Deviation RDW Coeff of Gabriel Plt Count MPV Immature Gran % (Auto) Neut % (Auto) Lymph % (Auto) Eaton % (Auto) Eos % (Auto) Baso % (Auto) Immature Gran # (Auto) Neut # (Auto) Lymph # (Auto) Eaton # (Auto) Eos # (Auto) Baso # (Auto) RBC Morphology APTT PTT Ratio Sample Site POC pH POC pCO2 POC pO2 POC HCO3 POC Total CO2 POC Base Excess ABG pH (Temp Correct) ABG pCO2 (Temp Corrct POC ABG pO2 at Pt Temp POC ABG O2 Sat Wilian Test O2 Delivery Device POC O2 Rate Minute Ventilation Tidal Volume PEEP Sodium Potassium Chloride Carbon Dioxide Anion Gap BUN Creatinine Est Cr Clr Drug Dosing Est GFR ( Amer) Est GFR (Non-Af Amer) BUN/Creatinine Ratio Glucose POC Glucose 136 H 158 H Calcium Phosphorus Magnesium Heparin Dep Plt Ab React Heparin Dep Plt Ab OD Blood Type Blood Type Recheck Antibody Screen Crossmatch 09/15/18 09/15/18 09/15/18 04:21 04:54 04:54 WBC 12.46 H RBC 2.50 L Hgb 7.9 L Hct 22.4 L MCV 89.6 MCH 31.6 MCHC 35.3 RDW Std Deviation 45.9 RDW Coeff of Gabriel 13.9 Plt Count 139 MPV 10.3 Immature Gran % (Auto) 0.3 Neut % (Auto) 95.7 Lymph % (Auto) 1.4 Eaton % (Auto) 2.6 Eos % (Auto) 0.0 Baso % (Auto) 0.0 Immature Gran # (Auto) 0.04 H Neut # (Auto) 11.92 H Lymph # (Auto) 0.17 L Eaton # (Auto) 0.33 Eos # (Auto) 0.00 Baso # (Auto) 0.00 RBC Morphology Unremarkable APTT 71.0 H* PTT Ratio 2.6 Sample Site POC pH POC pCO2 POC pO2 POC HCO3 POC Total CO2 POC Base Excess ABG pH (Temp Correct) ABG pCO2 (Temp Corrct POC ABG pO2 at Pt Temp POC ABG O2 Sat Wilian Test O2 Delivery Device POC O2 Rate Minute Ventilation Tidal Volume PEEP Sodium Potassium Chloride Carbon Dioxide Anion Gap BUN Creatinine Est Cr Clr Drug Dosing Est GFR ( Amer) Est GFR (Non-Af Amer) BUN/Creatinine Ratio Glucose POC Glucose 192 H Calcium Phosphorus Magnesium Heparin Dep Plt Ab React Heparin Dep Plt Ab OD Blood Type Blood Type Recheck Antibody Screen Crossmatch 09/15/18 09/15/18 09/15/18 04:54 05:17 05:48 WBC RBC Hgb Hct MCV MCH MCHC RDW Std Deviation RDW Coeff of Gabriel Plt Count MPV Immature Gran % (Auto) Neut % (Auto) Lymph % (Auto) Eaton % (Auto) Eos % (Auto) Baso % (Auto) Immature Gran # (Auto) Neut # (Auto) Lymph # (Auto) Eaton # (Auto) Eos # (Auto) Baso # (Auto) RBC Morphology APTT PTT Ratio Sample Site Art Line POC pH 7.39 POC pCO2 39 POC pO2 80 POC HCO3 24 POC Total CO2 25 POC Base Excess -1.0 ABG pH (Temp Correct) 7.392 ABG pCO2 (Temp Corrct 39 POC ABG pO2 at Pt Temp 80 POC ABG O2 Sat 96.0 H Wilian Test NA O2 Delivery Device Ventilator POC O2 Rate 16 Minute Ventilation 12.7 Tidal Volume 450 PEEP 5 Sodium 133 L D Potassium 3.2 L D Chloride 102 Carbon Dioxide 18 L Anion Gap 13.0 H BUN 75 H Creatinine 2.76 H D Est Cr Clr Drug Dosing 17.2 Est GFR ( Amer) 17.9 Est GFR (Non-Af Amer) 15.5 BUN/Creatinine Ratio 27.1 H Glucose 155 H POC Glucose 194 H Calcium 6.0 L D Phosphorus 3.4 D Magnesium 1.8 Heparin Dep Plt Ab React Heparin Dep Plt Ab OD Blood Type Blood Type Recheck Antibody Screen Crossmatch Medications Administered Acetaminophen (Tylenol) 650 mg PO Q4H PRN PRN Reason: Pain or Fever Stop: 09/30/18 03:45 Last Admin: 09/10/18 22:01 Dose: 650 mg Documented by: [id number] Admin: 09/09/18 23:45 Dose: 650 mg Documented by: [id number] Admin: 09/06/18 02:07 Dose: 650 mg Documented by: [id number] Admin: 09/04/18 21:25 Dose: 650 mg Documented by: [id number] Admin: 08/31/18 20:14 Dose: 650 mg Documented by: [id number] Admin: 08/31/18 08:26 Dose: 650 mg Documented by: [id number] Hydrox/Mg Hydrox/Simethicone (Maalox) 30 ml PO Q6H PRN PRN Reason: Dyspepsia Stop: 10/07/18 09:11 Last Admin: 09/07/18 09:39 Dose: 30 ml Documented by: [id number] Amlodipine Besylate (Norvasc) 10 mg PO DAILY NATALY Stop: 10/05/18 08:59 Last Admin: 09/12/18 09:37 Dose: Not Given Documented by: [id number] Admin: 09/11/18 09:21 Dose: Not Given Documented by: [id number] Admin: 09/10/18 08:39 Dose: 10 mg Documented by: [id number] Admin: 09/09/18 09:14 Dose: 10 mg Documented by: [id number] Admin: 09/08/18 08:08 Dose: 10 mg Documented by: [id number] Admin: 09/07/18 08:53 Dose: 10 mg Documented by: [id number] Admin: 09/06/18 08:55 Dose: 10 mg Documented by: [id number] Admin: 09/05/18 07:57 Dose: 10 mg Documented by: [id number] Artificial Tears (Artificial Tears) 1 drops OP HS NATALY Stop: 09/30/18 20:59 Last Admin: 09/14/18 22:42 Dose: 1 drops Documented by: [id number] Admin: 09/13/18 21:30 Dose: 1 drops Documented by: [id number] Admin: 09/12/18 20:27 Dose: 1 drops Documented by: [id number] Admin: 09/11/18 21:00 Dose: Not Given Documented by: [id number] Admin: 09/10/18 21:52 Dose: Not Given Documented by: [id number] Admin: 09/09/18 21:35 Dose: 1 drops Documented by: [id number] Admin: 09/08/18 20:53 Dose: 1 drops Documented by: [id number] Admin: 09/07/18 21:13 Dose: 1 drops Documented by: [id number] Admin: 09/06/18 20:48 Dose: 1 drops Documented by: [id number] Admin: 09/05/18 20:53 Dose: 1 drops Documented by: [id number] Admin: 09/04/18 20:15 Dose: 1 drops Documented by: [id number] Admin: 09/03/18 21:22 Dose: 1 drops Documented by: [id number] Admin: 09/02/18 20:53 Dose: 1 drops Documented by: [id number] Admin: 09/01/18 20:11 Dose: Not Given Documented by: [id number] Admin: 08/31/18 20:16 Dose: 1 drops Documented by: [id number] Clotrimazole (Mycelex) 10 mg BUCCAL [id number] NATALY Stop: 09/19/18 18:59 Last Admin: 09/14/18 22:11 Dose: Not Given Documented by: [id number] Admin: 09/14/18 17:22 Dose: Not Given Documented by: [id number] Admin: 09/14/18 14:26 Dose: Not Given Documented by: [id number] Admin: 09/14/18 09:51 Dose: Not Given Documented by: [id number] Admin: 09/14/18 07:40 Dose: Not Given Documented by: [id number] Admin: 09/13/18 22:11 Dose: Not Given Documented by: [id number] Admin: 09/13/18 19:18 Dose: Not Given Documented by: [id number] Admin: 09/13/18 13:36 Dose: Not Given Documented by: [id number] Admin: 09/13/18 09:44 Dose: Not Given Documented by: [id number] Admin: 09/13/18 08:48 Dose: Not Given Documented by: [id number] Admin: 09/12/18 22:24 Dose: Not Given Documented by: [id number] Admin: 09/12/18 19:26 Dose: Not Given Documented by: [id number] Admin: 09/12/18 14:18 Dose: Not Given Documented by: [id number] Admin: 09/12/18 12:39 Dose: Not Given Documented by: [id number] Admin: 09/12/18 07:32 Dose: Not Given Documented by: [id number] Admin: 09/11/18 23:08 Dose: Not Given Documented by: [id number] Admin: 09/11/18 19:37 Dose: Not Given Documented by: [id number] Admin: 09/11/18 14:26 Dose: Not Given Documented by: [id number] Admin: 09/11/18 11:41 Dose: Not Given Documented by: [id number] Admin: 09/11/18 09:20 Dose: Not Given Documented by: [id number] Admin: 09/10/18 21:53 Dose: 10 mg Documented by: [id number] Admin: 09/10/18 18:58 Dose: 10 mg Documented by: [id number] Admin: 09/10/18 16:02 Dose: 10 mg Documented by: [id number] Admin: 09/10/18 12:14 Dose: 10 mg Documented by: [id number] Admin: 09/10/18 08:39 Dose: 10 mg Documented by: [id number] Admin: 09/09/18 23:47 Dose: Not Given Documented by: [id number] Admin: 09/09/18 19:29 Dose: 10 mg Documented by: [id number] Docusate Sodium (Colace) 100 mg PO DAILY NATALY Stop: 10/13/18 08:59 Last Admin: 09/14/18 07:45 Dose: 100 mg Documented by: [id number] Admin: 09/13/18 09:49 Dose: 100 mg Documented by: [id number] Enteral Nutritional Formula (Impact 1.0 Sravani) 1,000 ml OG UD [facility]; Protocol Stop: 10/13/18 09:59 Last Admin: 09/14/18 14:26 Dose: 1,000 ml Documented by: [id number] Admin: 09/13/18 10:25 Dose: 1,000 ml Documented by: [id number] Fentanyl Citrate (Fentanyl Citrate) 50 mcg IV Q2H PRN PRN Reason: Moderate Pain (4,5,6) Stop: 09/27/18 04:22 Last Admin: 09/15/18 01:39 Dose: 50 mcg Documented by: [id number] Admin: 09/14/18 03:58 Dose: 50 mcg Documented by: [id number] Admin: 09/13/18 22:11 Dose: 50 mcg Documented by: [id number] Admin: 09/13/18 20:00 Dose: 50 mcg Documented by: [id number] Admin: 09/13/18 18:06 Dose: 50 mcg Documented by: [id number] Admin: 09/13/18 14:06 Dose: 50 mcg Documented by: [id number] Admin: 09/13/18 10:56 Dose: 50 mcg Documented by: [id number] Admin: 09/13/18 05:27 Dose: 50 mcg Documented by: [id number] Promethazine HCl 12.5 mg/ (Sodium Chloride) 50.5 mls @ 202 mls/hr IV Q6H PRN PRN Reason: Nausea And Vomiting Stop: 09/30/18 00:49 Last Infusion: 09/07/18 12:07 Dose: 0 mls/hr Documented by: [id number] Admin: 09/07/18 10:41 Dose: 202 mls/hr Documented by: [id number] Infusion: 08/31/18 08:50 Dose: 0 mls/hr Documented by: [id number] Admin: 08/31/18 08:35 Dose: 202 mls/hr Documented by: [id number] Heparin Sodium/Dextrose (Heparin Sodium/Dextrose) 25,000 units in 500 mls @ 14 mls/hr IV .Q24H [facility]; Protocol Stop: 10/05/18 15:29 Last Titration: 09/15/18 07:19 Dose: 700 units/hr, 14 mls/hr Documented by: [id number] Cosigned by: [id number] Titration: 09/15/18 06:10 Dose: 700 units/hr, 14 mls/hr Documented by: [id number] Cosigned by: [id number] Titration: 09/14/18 22:51 Dose: 750 units/hr, 15 mls/hr Documented by: [id number] Cosigned by: [id number] Titration: 09/14/18 14:46 Dose: 750 units/hr, 15 mls/hr Documented by: [id number] Cosigned by: [id number] Titration: 09/14/18 07:06 Dose: 750 units/hr, 15 mls/hr Documented by: [id number] Cosigned by: [id number] Titration: 09/14/18 05:44 Dose: 750 units/hr, 15 mls/hr Documented by: [id number] Cosigned by: [id number] Admin: 09/14/18 04:06 Dose: 800 units/hr, 16 mls/hr Documented by: [id number] Cosigned by: [id number] Titration: 09/14/18 04:06 Dose: 800 units/hr, 16 mls/hr Documented by: [id number] Cosigned by: [id number] Titration: 09/13/18 19:05 Dose: 800 units/hr, 16 mls/hr Documented by: [id number] Cosigned by: [id number] Titration: 09/13/18 15:10 Dose: 800 units/hr, 16 mls/hr Documented by: [id number] Cosigned by: [id number] Titration: 09/13/18 07:07 Dose: 800 units/hr, 16 mls/hr Documented by: [id number] Cosigned by: [id number] Titration: 09/13/18 05:41 Dose: 800 units/hr, 16 mls/hr Documented by: [id number] Cosigned by: [id number] Admin: 09/12/18 23:13 Dose: 950 units/hr, 19 mls/hr Documented by: [id number] Cosigned by: [id number] Titration: 09/12/18 23:13 Dose: 950 units/hr, 19 mls/hr Documented by: [id number] Cosigned by: [id number] Titration: 09/12/18 19:13 Dose: 950 units/hr, 19 mls/hr Documented by: [id number] Cosigned by: [id number] Titration: 09/12/18 08:42 Dose: 950 units/hr, 19 mls/hr Documented by: [id number] Cosigned by: [id number] Titration: 09/12/18 07:00 Dose: 950 units/hr, 19 mls/hr Documented by: [id number] Cosigned by: [id number] Admin: 09/11/18 22:47 Dose: 950 units/hr, 19 mls/hr Documented by: [id number] Cosigned by: [id number] Titration: 09/11/18 22:47 Dose: 950 units/hr, 19 mls/hr Documented by: [id number] Cosigned by: [id number] Titration: 09/11/18 15:16 Dose: 950 units/hr, 19 mls/hr Documented by: [id number] Cosigned by: [id number] Titration: 09/11/18 07:57 Dose: 950 units/hr, 19 mls/hr Documented by: [id number] Cosigned by: [id number] Titration: 09/11/18 07:22 Dose: 1,000 units/hr, 20 mls/hr Documented by: [id number] Cosigned by: [id number] Titration: 09/10/18 23:10 Dose: 1,000 units/hr, 20 mls/hr Documented by: [id number] Cosigned by: [id number] Admin: 09/10/18 22:37 Dose: 1,000 units/hr, 20 mls/hr Documented by: [id number] Cosigned by: [id number] Titration: 09/10/18 22:37 Dose: 1,000 units/hr, 20 mls/hr Documented by: [id number] Cosigned by: [id number] Titration: 09/10/18 15:19 Dose: 1,000 units/hr, 20 mls/hr Documented by: [id number] Cosigned by: [id number] Titration: 09/10/18 07:09 Dose: 1,000 units/hr, 20 mls/hr Documented by: [id number] Cosigned by: [id number] Admin: 09/09/18 23:47 Dose: 1,000 units/hr, 20 mls/hr Documented by: [id number] Cosigned by: [id number] Titration: 09/09/18 23:45 Dose: 1,000 units/hr, 20 mls/hr Documented by: [id number] Cosigned by: [id number] Titration: 09/09/18 23:15 Dose: 1,000 units/hr, 20 mls/hr Documented by: [id number] Cosigned by: [id number] Titration: 09/09/18 15:13 Dose: 1,000 units/hr, 20 mls/hr Documented by: [id number] Cosigned by: [id number] Titration: 09/09/18 07:23 Dose: 1,000 units/hr, 20 mls/hr Documented by: [id number] Cosigned by: [id number] Admin: 09/09/18 03:40 Dose: 1,000 units/hr, 20 mls/hr Documented by: [id number] Cosigned by: [id number] Titration: 09/09/18 03:40 Dose: 1,000 units/hr, 20 mls/hr Documented by: [id number] Cosigned by: [id number] Titration: 09/08/18 14:34 Dose: 1,000 units/hr, 20 mls/hr Documented by: [id number] Cosigned by: [id number] Titration: 09/08/18 08:00 Dose: 1,000 units/hr, 20 mls/hr Documented by: [id number] Cosigned by: [id number] Titration: 09/08/18 07:00 Dose: 0 units/hr, 0 mls/hr Documented by: [id number] Cosigned by: [id number] Admin: 09/08/18 03:54 Dose: 1,150 units/hr, 23 mls/hr Documented by: [id number] Cosigned by: [id number] Titration: 09/08/18 03:54 Dose: 1,150 units/hr, 23 mls/hr Documented by: [id number] Cosigned by: [id number] Admin: 09/07/18 07:02 Dose: 1,150 units/hr, 23 mls/hr Documented by: [id number] Cosigned by: [id number] Titration: 09/07/18 07:02 Dose: 1,150 units/hr, 23 mls/hr Documented by: [id number] Cosigned by: [id number] Titration: 09/06/18 19:07 Dose: 1,150 units/hr, 23 mls/hr Documented by: [id number] Cosigned by: [id number] Admin: 09/06/18 09:36 Dose: 1,150 units/hr, 23 mls/hr Documented by: [id number] Cosigned by: [id number] Titration: 09/06/18 09:36 Dose: 1,150 units/hr, 23 mls/hr Documented by: [id number] Cosigned by: [id number] Titration: 09/06/18 07:16 Dose: 1,150 units/hr, 23 mls/hr Documented by: [id number] Cosigned by: [id number] Admin: 09/05/18 15:37 Dose: 1,200 units/hr, 24 mls/hr Documented by: [id number] Cosigned by: [id number] Cefepime HCl 2,000 mg/ Syringe 20 mls @ 5 mls/min IV Q24H NATALY; Protocol Stop: 09/21/18 07:59 Last Admin: 09/14/18 22:12 Dose: 5 mls/min Documented by: [id number] Admin: 09/13/18 22:11 Dose: 5 mls/min Documented by: [id number] Daptomycin 400 mg/ Syringe 8 mls @ 4 mls/min IV Q48H NATALY; Protocol Stop: 09/23/18 17:59 Last Admin: 09/14/18 17:16 Dose: 4 mls/min Documented by: [id number] Famotidine 20 mg/ Syringe 5 mls @ 2.5 mls/min IV DAILY NATALY Stop: 10/12/18 20:59 Last Admin: 09/14/18 08:35 Dose: 2.5 mls/min Documented by: [id number] Levothyroxine Sodium 25 mcg/ (Syringe) 1.25 mls @ 2 mls/min IV DAILY@0900 NATALY Stop: 10/14/18 08:59 Last Admin: 09/14/18 08:34 Dose: 2 mls/min Documented by: [id number] Insulin Human Regular 250 (units/ Sodium Chloride) 250 mls @ 5.9 mls/hr IV .Q24H NATALY; Protocol Stop: 10/14/18 06:14 Last Titration: 09/15/18 07:18 Dose: 5.9 units/hr, 5.9 mls/hr Documented by: [id number] Cosigned by: [id number] Titration: 09/15/18 06:00 Dose: 4.8 units/hr, 4.8 mls/hr Documented by: [id number] Cosigned by: [id number] Titration: 09/15/18 05:22 Dose: 6 units/hr, 6 mls/hr Documented by: [id number] Cosigned by: [id number] Titration: 09/15/18 03:22 Dose: 5 units/hr, 5 mls/hr Documented by: [id number] Cosigned by: [id number] Titration: 09/15/18 01:50 Dose: 0 units/hr, 0 mls/hr Documented by: [id number] Cosigned by: [id number] Titration: 09/14/18 23:55 Dose: 4.3 units/hr, 4.3 mls/hr Documented by: [id number] Cosigned by: [id number] Titration: 09/14/18 22:52 Dose: 5.3 units/hr, 5.3 mls/hr Documented by: [id number] Cosigned by: [id number] Titration: 09/14/18 22:00 Dose: 5.3 units/hr, 5.3 mls/hr Documented by: [id number] Cosigned by: [id number] Titration: 09/14/18 21:00 Dose: 5.3 units/hr, 5.3 mls/hr Documented by: [id number] Cosigned by: [id number] Titration: 09/14/18 20:00 Dose: 4.4 units/hr, 4.4 mls/hr Documented by: [id number] Cosigned by: [id number] Titration: 09/14/18 19:00 Dose: 4.4 units/hr, 4.4 mls/hr Documented by: [id number] Cosigned by: [id number] Titration: 09/14/18 18:00 Dose: 4.4 units/hr, 4.4 mls/hr Documented by: [id number] Cosigned by: [id number] Titration: 09/14/18 16:40 Dose: 4.4 units/hr, 4.4 mls/hr Documented by: [id number] Cosigned by: [id number] Titration: 09/14/18 16:04 Dose: 4.4 units/hr, 4.4 mls/hr Documented by: [id number] Cosigned by: [id number] Titration: 09/14/18 15:06 Dose: 3.7 units/hr, 3.7 mls/hr Documented by: [id number] Cosigned by: [id number] Titration: 09/14/18 14:40 Dose: 3.1 units/hr, 3.1 mls/hr Documented by: [id number] Cosigned by: [id number] Titration: 09/14/18 13:40 Dose: 3.1 units/hr, 3.1 mls/hr Documented by: [id number] Cosigned by: [id number] Titration: 09/14/18 12:40 Dose: 3.1 units/hr, 3.1 mls/hr Documented by: [id number] Cosigned by: [id number] Titration: 09/14/18 11:40 Dose: 3.1 units/hr, 3.1 mls/hr Documented by: [id number] Cosigned by: [id number] Titration: 09/14/18 10:40 Dose: 3.1 units/hr, 3.1 mls/hr Documented by: [id number] Cosigned by: [id number] Titration: 09/14/18 09:40 Dose: 3.1 units/hr, 3.1 mls/hr Documented by: [id number] Cosigned by: [id number] Titration: 09/14/18 08:45 Dose: 3.1 units/hr, 3.1 mls/hr Documented by: [id number] Cosigned by: [id number] Admin: 09/14/18 07:40 Dose: 2.6 units/hr, 2.6 mls/hr Documented by: [id number] Cosigned by: [id number] Methylprednisolone 60 mg/ (Syringe) 0.96 mls @ 1.5 mls/min IV Q8H NATALY Stop: 10/12/18 21:59 Last Admin: 09/15/18 05:16 Dose: 1.5 mls/min Documented by: [id number] Admin: 09/14/18 22:11 Dose: 1.5 mls/min Documented by: [id number] Admin: 09/14/18 14:26 Dose: 1.5 mls/min Documented by: [id number] Ipratropium [place] (Atrovent 0.02% 0.5mg/2.5ml) 0.5 mg INH Q6R NATALY Stop: 10/03/18 13:59 Last Admin: 09/15/18 07:23 Dose: 0.5 mg Documented by: [id number] Admin: 09/15/18 01:11 Dose: 0.5 mg Documented by: [id number] Admin: 09/14/18 19:13 Dose: 0.5 mg Documented by: [id number] Admin: 09/14/18 14:08 Dose: 0.5 mg Documented by: [id number] Admin: 09/14/18 07:10 Dose: 0.5 mg Documented by: [id number] Admin: 09/14/18 02:03 Dose: 0.5 mg Documented by: [id number] Admin: 09/13/18 19:30 Dose: 0.5 mg Documented by: [id number] Admin: 09/13/18 14:06 Dose: 0.5 mg Documented by: [id number] Admin: 09/13/18 07:07 Dose: 0.5 mg Documented by: [id number] Admin: 09/13/18 02:15 Dose: 0.5 mg Documented by: [id number] Admin: 09/12/18 19:50 Dose: 0.5 mg Documented by: [id number] Admin: 09/12/18 15:17 Dose: 0.5 mg Documented by: [id number] Admin: 09/12/18 07:15 Dose: 0.5 mg Documented by: [id number] Admin: 09/12/18 01:29 Dose: 0.5 mg Documented by: [id number] Admin: 09/11/18 18:59 Dose: 0.5 mg Documented by: [id number] Admin: 09/11/18 14:05 Dose: 0.5 mg Documented by: [id number] Admin: 09/11/18 07:12 Dose: 0.5 mg Documented by: [id number] Admin: 09/11/18 01:57 Dose: 0.5 mg Documented by: [id number] Admin: 09/10/18 19:19 Dose: 0.5 mg Documented by: [id number] Admin: 09/10/18 13:53 Dose: 0.5 mg Documented by: [id number] Admin: 09/10/18 07:12 Dose: 0.5 mg Documented by: [id number] Admin: 09/10/18 02:37 Dose: 0.5 mg Documented by: [id number] Admin: 09/09/18 18:50 Dose: 0.5 mg Documented by: [id number] Admin: 09/09/18 14:09 Dose: 0.5 mg Documented by: [id number] Admin: 09/09/18 07:19 Dose: 0.5 mg Documented by: [id number] Admin: 09/09/18 01:49 Dose: 0.5 mg Documented by: [id number] Admin: 09/08/18 19:00 Dose: 0.5 mg Documented by: [id number] Admin: 09/08/18 13:05 Dose: 0.5 mg Documented by: [id number] Admin: 09/08/18 06:55 Dose: 0.5 mg Documented by: [id number] Admin: 09/08/18 01:57 Dose: Not Given Documented by: [id number] Admin: 09/07/18 19:07 Dose: 0.5 mg Documented by: [id number] Admin: 09/07/18 13:56 Dose: 0.5 mg Documented by: [id number] Admin: 09/07/18 07:01 Dose: 0.5 mg Documented by: [id number] Admin: 09/07/18 01:50 Dose: 0.5 mg Documented by: [id number] Admin: 09/06/18 19:10 Dose: 0.5 mg Documented by: [id number] Admin: 09/06/18 13:22 Dose: 0.5 mg Documented by: [id number] Admin: 09/06/18 07:05 Dose: 0.5 mg Documented by: [id number] Admin: 09/06/18 01:36 Dose: 0.5 mg Documented by: [id number] Admin: 09/05/18 19:11 Dose: 0.5 mg Documented by: [id number] Admin: 09/05/18 14:26 Dose: 0.5 mg Documented by: [id number] Admin: 09/05/18 06:58 Dose: 0.5 mg Documented by: [id number] Admin: 09/05/18 01:36 Dose: 0.5 mg Documented by: [id number] Admin: 09/04/18 19:17 Dose: 0.5 mg Documented by: [id number] Admin: 09/04/18 14:35 Dose: 0.5 mg Documented by: [id number] Admin: 09/04/18 07:21 Dose: 0.5 mg Documented by: [id number] Admin: 09/04/18 01:43 Dose: 0.5 mg Documented by: [id number] Admin: 09/03/18 19:11 Dose: 0.5 mg Documented by: [id number] Admin: 09/03/18 13:58 Dose: 0.5 mg Documented by: [id number] Levalbuterol HCl (Xopenex 0.63 Mg/3 Ml Neb) 0.63 mg NEB Q6R NATALY Stop: 10/03/18 13:59 Last Admin: 09/15/18 07:23 Dose: 0.63 mg Documented by: [id number] Admin: 09/15/18 01:11 Dose: 0.63 mg Documented by: [id number] Admin: 09/14/18 19:13 Dose: 0.63 mg Documented by: [id number] Admin: 09/14/18 14:08 Dose: 0.63 mg Documented by: [id number] Admin: 09/14/18 07:10 Dose: 0.63 mg Documented by: [id number] Admin: 09/14/18 02:03 Dose: 0.63 mg Documented by: [id number] Admin: 09/13/18 19:31 Dose: 0.63 mg Documented by: [id number] Admin: 09/13/18 14:07 Dose: 0.63 mg Documented by: [id number] Admin: 09/13/18 07:07 Dose: 0.63 mg Documented by: [id number] Admin: 09/13/18 02:15 Dose: 0.63 mg Documented by: [id number] Admin: 09/12/18 19:50 Dose: 0.63 mg Documented by: [id number] Admin: 09/12/18 15:17 Dose: 0.63 mg Documented by: [id number] Admin: 09/12/18 07:15 Dose: 0.63 mg Documented by: [id number] Admin: 09/12/18 01:29 Dose: 0.63 mg Documented by: [id number] Admin: 09/11/18 18:59 Dose: 0.63 mg Documented by: [id number] Admin: 09/11/18 14:05 Dose: 0.63 mg Documented by: [id number] Admin: 09/11/18 07:12 Dose: 0.63 mg Documented by: [id number] Admin: 09/11/18 01:57 Dose: 0.63 mg Documented by: [id number] Admin: 09/10/18 19:19 Dose: 0.63 mg Documented by: [id number] Admin: 09/10/18 13:53 Dose: 0.63 mg Documented by: [id number] Admin: 09/10/18 07:12 Dose: 0.63 mg Documented by: [id number] Admin: 09/10/18 02:37 Dose: 0.63 mg Documented by: [id number] Admin: 09/09/18 18:50 Dose: 0.63 mg Documented by: [id number] Admin: 09/09/18 14:09 Dose: 0.63 mg Documented by: [id number] Admin: 09/09/18 07:19 Dose: 0.63 mg Documented by: [id number] Admin: 09/09/18 01:48 Dose: 0.63 mg Documented by: [id number] Admin: 09/08/18 19:00 Dose: 0.63 mg Documented by: [id number] Admin: 09/08/18 13:05 Dose: 0.63 mg Documented by: [id number] Admin: 09/08/18 06:56 Dose: 0.63 mg Documented by: [id number] Admin: 09/08/18 01:57 Dose: Not Given Documented by: [id number] Admin: 09/07/18 19:07 Dose: 0.63 mg Documented by: [id number] Admin: 09/07/18 13:55 Dose: 0.63 mg Documented by: [id number] Admin: 09/07/18 07:01 Dose: 0.63 mg Documented by: [id number] Admin: 09/07/18 01:50 Dose: 0.63 mg Documented by: [id number] Admin: 09/06/18 19:10 Dose: 0.63 mg Documented by: [id number] Admin: 09/06/18 13:22 Dose: 0.63 mg Documented by: [id number] Admin: 09/06/18 07:05 Dose: 0.63 mg Documented by: [id number] Admin: 09/06/18 01:36 Dose: 0.63 mg Documented by: [id number] Admin: 09/05/18 19:11 Dose: 0.63 mg Documented by: [id number] Admin: 09/05/18 14:26 Dose: 0.63 mg Documented by: [id number] Admin: 09/05/18 06:57 Dose: 0.63 mg Documented by: [id number] Admin: 09/05/18 01:36 Dose: 0.63 mg Documented by: [id number] Admin: 09/04/18 19:17 Dose: 0.63 mg Documented by: [id number] Admin: 09/04/18 14:35 Dose: 0.63 mg Documented by: [id number] Admin: 09/04/18 07:21 Dose: 0.63 mg Documented by: [id number] Admin: 09/04/18 01:43 Dose: 0.63 mg Documented by: [id number] Admin: 09/03/18 19:11 Dose: 0.63 mg Documented by: [id number] Admin: 09/03/18 13:58 Dose: 0.63 mg Documented by: [id number] Levothyroxine Sodium (Synthroid) 50 mcg PO DAILYBB [facility] Stop: 09/30/18 06:29 Last Admin: 09/13/18 06:40 Dose: 50 mcg Documented by: [id number] Admin: 09/12/18 06:35 Dose: Not Given Documented by: [id number] Admin: 09/11/18 05:36 Dose: 50 mcg Documented by: [id number] Admin: 09/10/18 05:51 Dose: 50 mcg Documented by: [id number] Admin: 09/09/18 06:22 Dose: 50 mcg Documented by: [id number] Admin: 09/08/18 05:27 Dose: 50 mcg Documented by: [id number] Admin: 09/07/18 05:27 Dose: 50 mcg Documented by: [id number] Admin: 09/06/18 05:20 Dose: 50 mcg Documented by: [id number] Admin: 09/05/18 05:33 Dose: 50 mcg Documented by: [id number] Admin: 09/04/18 06:42 Dose: 50 mcg Documented by: [id number] Admin: 09/03/18 06:25 Dose: 50 mcg Documented by: [id number] Admin: 09/02/18 06:18 Dose: 50 mcg Documented by: [id number] Admin: 09/01/18 06:03 Dose: 50 mcg Documented by: [id number] Admin: 08/31/18 06:07 Dose: 50 mcg Documented by: [id number] [facility]: 10/12/18 08:59 Last Admin: 09/12/18 09:37 Dose: Not Given Documented by: [id number] Midazolam HCl (Versed) 2 mg IV Q2H PRN PRN Reason: agitation/anxiety Stop: 10/13/18 04:56 Last Admin: 09/15/18 01:39 Dose: 2 mg Documented by: [id number] Admin: 09/14/18 15:46 Dose: 2 mg Documented by: [id number] Admin: 09/14/18 05:55 Dose: 2 mg Documented by: [id number] Admin: 09/13/18 22:12 Dose: 2 mg Documented by: [id number] Admin: 09/13/18 20:01 Dose: 2 mg Documented by: [id number] Admin: 09/13/18 16:44 Dose: 2 mg Documented by: [id number] Admin: 09/13/18 12:07 Dose: 2 mg Documented by: [id number] Admin: 09/13/18 09:30 Dose: 2 mg Documented by: [id number] Morphine Sulfate (Morphine Sulfate) 2 mg IV Q2H PRN PRN Reason: Pain Stop: 09/26/18 13:50 Last Admin: 09/14/18 18:26 Dose: 2 mg Documented by: [id number] Admin: 09/13/18 02:40 Dose: 2 mg Documented by: [id number] Admin: 09/12/18 22:07 Dose: 2 mg Documented by: [id number] Admin: 09/12/18 19:23 Dose: 2 mg Documented by: [id number] Admin: 09/12/18 16:35 Dose: 2 mg Documented by: [id number] Nitroglycerin (Nitro-Bid 2%) 1 inch EXT Q6H NATALY Stop: 10/14/18 10:59 Last Admin: 09/15/18 05:14 Dose: 1 inch Documented by: [id number] Admin: 09/14/18 22:15 Dose: 1 inch Documented by: [id number] Admin: 09/14/18 17:15 Dose: 1 inch Documented by: [id number] Admin: 09/14/18 11:15 Dose: 1 inch Documented by: [id number] Dulera 100mcg/5mcg~ Non-Formulary Patient's Own Med 2 ea PO BID NATALY Stop: 10/09/18 20:59 Last Admin: 09/13/18 08:48 Dose: Not Given Documented by: [id number] Admin: 09/12/18 20:28 Dose: 2 puffs Documented by: [id number] Admin: 09/12/18 09:37 Dose: Not Given Documented by: [id number] Admin: 09/11/18 21:01 Dose: Not Given Documented by: [id number] Admin: 09/11/18 10:34 Dose: Not Given Documented by: [id number] Admin: 09/10/18 21:53 Dose: 1 puffs Documented by: [id number] Admin: 09/10/18 08:39 Dose: 2 puffs Documented by: [id number] Admin: 09/09/18 21:14 Dose: Not Given Documented by: [id number] Prednisone (Prednisone) 10 mg PO QAM NATALY Stop: 10/03/18 08:59 Last Admin: 09/03/18 08:48 Dose: 10 mg Documented by: [id number] Rosuvastatin Calcium (Crestor) 10 mg PO DAILY [facility] Stop: 09/30/18 08:59 Last Admin: 09/14/18 07:45 Dose: 10 mg Documented by: [id number] Admin: 09/13/18 08:57 Dose: 10 mg Documented by: [id number] Admin: 09/12/18 09:36 Dose: Not Given Documented by: [id number] Admin: 09/11/18 09:20 Dose: Not Given Documented by: [id number] Admin: 09/10/18 08:39 Dose: 10 mg Documented by: [id number] Admin: 09/09/18 09:14 Dose: 10 mg Documented by: [id number] Admin: 09/08/18 08:08 Dose: 10 mg Documented by: [id number] Admin: 09/07/18 11:56 Dose: Not Given Documented by: [id number] Admin: 09/06/18 08:47 Dose: 10 mg Documented by: [id number] Admin: 09/05/18 07:55 Dose: 10 mg Documented by: [id number] Admin: 09/04/18 08:18 Dose: 10 mg Documented by: [id number] Admin: 09/03/18 08:00 Dose: 10 mg Documented by: [id number] Admin: 09/02/18 08:07 Dose: 10 mg Documented by: [id number] Admin: 09/01/18 09:50 Dose: Not Given Documented by: [id number] Admin: 08/31/18 08:24 Dose: 10 mg Documented by: [id number] PG Care Time/CCT Total # of Minutes Spent Total Time Spent with Patient: Total time spent is greater than 50% in coordination of care (as documented) at patient's floor/unit and/or counseling patient: Resident Activity Tracking Resident Involvement: Resident Care Provided Care Provided: Adult Hospital Medicine (ICU)
[2018-09-15] MEDS: ROSUVASTATIN CALCIUM 10 MG TAB PO SCH (08:19)
[2018-09-15] MEDS: DOCUSATE SODIUM SYRUP 100 MG/10 ML UDC PO SCH (08:19)
[2018-09-15] MEDS ORDERED: LACTULOSE SYRUP 20 GM/30 ML UDC OG STA (08:25)
[2018-09-15] MEDS: CLOTRIMAZOLE 10 MG TROCHE BUCCAL SCH ×2 (08:31→08:37)
[2018-09-15] MEDS: FAMOTIDINE 20 MG in SYRINGE 3 ML IV SCH (08:35)
[2018-09-15] MEDS: INSULIN REGULAR 250 UNITS in SODIUM CHLORIDE 0.9% 247.5 ML IV SCH (08:58)
[2018-09-15] MEDS ORDERED: INSULIN GLARGINE SOLOSTAR 100 UNITS/ML 3 ML PEN SC SCH (09:00)
[2018-09-15] MEDS: LEVOTHYROXINE SODIUM 25 MCG in SYRINGE 0 ML IV SCH (09:01)
[2018-09-15] MEDS: POTASSIUM CHLORIDE / WTR 10 MEQ/100 ML PLCT IV SCH ×3 (09:02→10:13)
[2018-09-15 09:16] LABS: INR 1.1 (0.9-1.1)
[2018-09-15] MEDS: MoRPHine SULFATE 2 MG/ML CARP IV PRN ×5 (09:34→21:50)
--- NOTE | 2018-09-15 09:40 | Palliative Care Progress Note ---
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 The pacemaker has been removed and cultures are growing MSSA and pseudomonas. She is on daptomycin and cefepime. Patient's hospital stay has been complicated by respiratory failure and ARDS, as well as acute kidney injury. Patient had acute decompensation and changed her code status from DNR to FULL CODE for which she ended up being intubated. Cardiology is following and nephrology consulted today. Creatinine is 0.6-0.8 at baseline, and has continued to rise, today it is 2.76-- likely 2/2 labile renal perfusion. Palliative care is consulted to continue assisting with discussion about goals of care. -I spoke with the Paleobotanist and had discussion this morning for which the ROXY Almazan and other family members decided to terminally extubate. The patients first officer was at the bedside to provide last rights. -The patient was apparently adamant that she would not wish to be placed in a fpc and over the last 24 hours her pulmonary function has not shown any significant improvement. -As this patient is end stage, the family has made the decision to stop all life-sustaining measures. Patient was changed to a DNR/DNI. -I spoke with the family and discussed anticipated symptoms at end of life, including agonal breathing, audible secretions and agitation. -The ETT was removed after Morphine 2 mg IV was administered. The patient tolerated the procedure well. Family went to the waiting room for the extubation. -Upon their return, the patient was placed on oxymask 15L. The family wishes that, for now, she remain attached to the heart monitor and BP cuff. -I anticipate the patient has a life expectancy of hours to a day or two. -I did set the expectation about transferring the patient out of ICU if she stabilizes over the next few hours. -I ordered the following comfort medications: 1. Morphine 2mg IV Q1 PRN pain/air hunger 2. Atropine 4gtts SL Q2 PRN secretions 3. Ativan 0.5 mg IV Q2 PRN agitation -Should the patient require frequent Morphine administration, I would have a low threshold for starting a continuous Morphine gtt. -All questions answered to the family's level of satisfaction. All members appropriately tearful. -PPS: 10% -Update: 1245: I did spend additional time on multiple occasions monitoring the patient and updating multiple family members. Patient remains on 15 L oxymask and SpO2 is 94%. patient HR is 61. patient agonal with her breaths and increasing diaphragmatic breathing. Her mouth is open and neck tilted back. Provided update to family and they confirmed that they would NOT want any escalation in care including any additional Heparin gtt, Insulin gtt, etc. Should she stabilize they will readdress this. -I anticipate patient has hours to a day or two for expected life. Continue Morphine, Ativan and Atropine gtts as needed. -I did speak directly to the covering Hospitalist and transfer orders will be placed and family updated with such. -We will continue to provide symptom/comfort care management and continue supporting the family through this transition. -PPS: 10% (2) Acute on chronic renal failure: (3) Interstitial lung disease: (4) Pulmonary edema: Subjective Patient not following commands and able to participate in ROS discussion. Patient also mechanically ventilated. Multiple family members, including 3 daughters one of which is POA in the room. Multiple discussions this morning held regarding terminal extubation. Please see A/P for further details. Review of Systems Review of Systems: Unobtainable due to cognitive status and Unobtainable due to endotracheal tube Results & Data Vital Signs (Past 12 Hours) Vital Signs Temp Pulse Pulse Pulse Resp BP BP 09/15/18 07:23 63 27 H 09/15/18 06:17 36.6 C 53 L 16 217/53 H 09/15/18 05:00 60 60 16 223/60 H 09/15/18 04:55 61 19 09/15/18 04:00 225/57 H 09/15/18 03:00 96 H 96 H 20 137/40 L 09/15/18 02:00 37 C 65 65 16 147/39 H 09/15/18 01:16 57 L 17 09/15/18 01:00 57 L 57 L 16 195/47 H 09/15/18 00:00 58 L 198/47 H 09/14/18 22:45 63 22 07/30/19 21:49 56 L 17 Pulse Ox 07/31/19 07:23 94 09/15/18 06:17 95 09/15/18 05:00 95 09/15/18 04:55 95 09/15/18 04:00 09/15/18 03:00 90 09/15/18 02:00 90 09/15/18 01:16 98 09/15/18 01:00 97 09/15/18 00:00 09/14/18 22:45 97 09/14/18 21:49 99 PG Care Time/CCT Total # of Minutes Spent Total Time Spent with Patient: Total time spent is greater than 50% in coordination of care (as documented) at patient's floor/unit and/or counseling patient: 90 Prolonged Care Time Total Prolonged Care Time: 90 Time Spent Midlevel Total time spent 90 minutes with > 50% of that time spent assessing the patient, discussing goals of care and providing anticipating end of life symptoms. (1) Acute on chronic renal failure Acute renal failure type: unspecified Chronic kidney disease stage: stage 3 (moderate) Qualified Code(s): N17.9 - Acute kidney failure, unspecified; N18.3 - Chronic kidney disease, stage 3 (moderate)
[2018-09-15] MEDS: LORazepam 0.25 MG/0.5 ML VIAL IV PRN ×3 (10:09→23:54)
[2018-09-15] MEDS: ATROPINE SULFATE 1% OP SOLN 2 ML BTL SL PRN ×2 (10:09→23:52)
[2018-09-15] MEDS: Heparin Adult STANDARD Wt-Based Dextrose 5% 25,000 units/500 mL IV SCH (10:57)
[2018-09-15] MEDS ORDERED: Heparin IV Standard *NO* Bolus IV SCH (12:00)
[2018-09-15] MEDS ORDERED: PHARMACY GLYCEMIC MGMT CONSULT PRN (12:01)
[2018-09-15] MEDS ORDERED: DOPamine 400MG / 250ML D5W IV ONE (13:59)
--- NOTE | 2018-09-15 19:45 | Infectious Disease Progress Nt ---
Date of Service September 15, 2018 Assessment & Plan (1) Infection of pacemaker pocket: Patients with sepsis and pacemaker pocket infection, now with respiratory failure, family deciding on terminal extubation. Will discuss further management with all involved. (2) Bacteremia due to methicillin susceptible Staphylococcus aureus (MSSA): Subjective Patient seen in follow-up for pacemaker infection. Events reviewed. Acute respiratory failure requiring intubation. Now considering terminal extubation. Review of Systems Review of Systems: Unobtainable due to cognitive status Physical Exam Constitutional: + ill appearing and + altered mental status Eyes: PERRL, conjunctivae normal, anicteric sclerae ENMT: external ear and nose normal, oropharynx normal Neck: trachea midline, no thyromegaly Respiratory: + labored breathing Auscultation: + rales and + rhonchi Cardiovascular: RRR, no murmur, no edema Heart Sounds: no cardiac rub Gastrointestinal (Abdomen): normal bowel sounds, soft, nontender, no hepatosplenomegaly Musculoskeletal: Head/Neck/Chest: normocephalic, head atraumatic and neck supple Skin: no rashes, warm and dry normal turgor Neurologic: Opens eyes to voice Lymphatic: no cervical or axillary lymphadenopathy no inguinal lymphadenopathy Results & Data Vital Signs (Past 12 Hours) Vital Signs Temp Pulse BP Pulse Ox 09/15/18 14:00 62 158/66 H 93 09/15/18 12:00 63 160/61 H 96 09/15/18 10:00 62 159/59 H 96 09/15/18 09:00 67 194/75 H 90 09/15/18 08:00 36.8 C 72 195/83 H 90 Laboratory Results Short CBC 09/14/18 09/15/18 Range/Units 23:57 04:54 WBC 12.46 H (4.8-10.8) K/uL Hgb 10.1 L 7.9 L (12.0-16.0) g/dL Hct 28.4 L 22.4 L (37-47) % Plt Count 139 (130-400) K/uL BMP 09/15/18 04:54 Sodium 133 L D Potassium 3.2 L D Chloride 102 Carbon Dioxide 18 L BUN 75 H Creatinine 2.76 H D Glucose 155 H Calcium 6.0 L D Diagnostic Findings Microbiology 09/13/18 Unknown Urine,Clean Catch Urine Culture - Final Chen albicans 09/13/18 08:52 Blood Aerobic Blood Culture - Preliminary No growth in Aerobic bottle after 24 hours. 09/13/18 08:52 Blood Anaerobic Blood Culture - Preliminary No growth in Anaerobic bottle after 24 hours. 09/13/18 08:53 Blood Aerobic Blood Culture - Preliminary No growth in Aerobic bottle after 24 hours. 09/13/18 08:53 Blood Anaerobic Blood Culture - Preliminary No growth in Anaerobic bottle after 24 hours. 09/02/18 08:20 Blood Aerobic Blood Culture - Final No growth in Aerobic bottle after 5 days. 09/02/18 08:20 Blood Anaerobic Blood Culture - Final No growth in Anaerobic bottle after 5 days. 09/02/18 08:08 Blood Aerobic Blood Culture - Final No growth in Aerobic bottle after 5 days. 09/02/18 08:08 Blood Anaerobic Blood Culture - Final No growth in Anaerobic bottle after 5 days. 08/31/18 Unknown Chest Gram Stain - Final 08/31/18 Unknown Chest Wound Culture - Final Pseudomonas aeruginosa Staphylococcus aureus 08/30/18 23:59 Blood Aerobic Blood Culture - Final Staphylococcus aureus 08/30/18 23:59 Blood Anaerobic Blood Culture - Final Staphylococcus aureus 08/30/18 23:55 Blood Aerobic Blood Culture - Final Staphylococcus aureus 08/30/18 23:55 Blood Anaerobic Blood Culture - Final Staphylococcus aureus Interpreting Phy: Gerardo Thompson Admit Phy: Duarte Miguel MD Ordering Phy: Sharath Allen PA-C cc: ~ XR chest 1V portable HISTORY: 83 years-old Female f/u follow-up study in a patient with acute respiratory failure COMPARISON: Chest radiograph 09/13/2018 TECHNIQUE: Portable AP view of the chest FINDINGS: Endotracheal tube overlies the midline, 3.7 cm superior to the alfonso. Enteric tube courses below the diaphragm outside the [id number]. Cardiac silhouette is enlarged, unchanged. Stable positioning of the right-sided PICC. Calcification of the thoracic aortic arch. Trace pleural effusions. No pneumothorax. Persistent bilateral mixed interstitial and alveolar opacities with mildly improved aeration of the bilateral lungs. Indeterminate lucent focus of the left axilla redemonstrated. Bones appear grossly intact. IMPRESSION: 1. Satisfactory positioning of life-support lines and tubes as above. 2. Cardiomegaly with mildly improved pulmonary edema pattern. 3. Trace pleural effusions. The above report was generated using voice recognition software. It may contain grammatical, syntax or spelling errors. Electronically signed by: Rodriguez Thompson M.D. 09/14/2018 6:58 AM Dictated: 09/14/18654 Transcribed: 09/14/18654
--- NOTE | 2018-09-15 20:31 | Hospitalist Progress Note ---
Date of Service September 15, 2018 Assessment & Plan (1) Respiratory failure: Acute on Chronic Hypoxic Respiratory Failure Interstitial lung disease History of Sjogren's syndrome with lung involvement CT chest ordered: Positive for right lower lobe pulmonary emboli Appreciate pulmonary input and recommendation Was placed on IV Lasix, IV Solu-Medrol Patient deteriorated, transferred to ICU, eventually intubated Course in the ICU complicated by acute renal failure, uncontrolled hypertension Terminally extubated 09/15/2018 per family request, after discussion with palliative care services, also placed under comfort measures PRN morphine drip ordered, discussed with patient's RN Also on PRN Ativan, atropine (2) Sepsis: Secondary to pacemaker site infection, bacteremia 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 Immunocompromised patient with Sjogren's syndrome on chronic steroid Rx S/Post removal of pacemaker on 09/01/2018 Wound culture: Positive for Pseudomonas and MSSA Blood cultures: Positive for MSSA Was on IV cefepime and daptomycin Acute renal failure: No immediate indication for hemodialysis Kidney function has been getting worse with creatinine went up to more than 3 Renal ultrasound did not show any renal artery stenosis Nephrology consulted Pulmonary embolism Given intravenous heparin Hypertension Amlodipine increased to 10 mg p.o. daily for better BP control Lisinopril 5 mg p.o. daily added Nitropaste applied DM2 ISS SSI-parameters have been changed Disposition Pending Discussed with patient's daughters at the bedside, in detail at length All questions answered, they are all understanding, comfortable and agreeable with the plan Subjective Follow-up for pacemaker site infection, bacteremia, acute on chronic hypoxic respiratory failure, interstitial lung disease Status post terminal extubation this morning Transferred to [facility] for comfort measures status after discussion with family Seen with patient's daughters at the bedside Patient is obtunded, receiving PRN morphine and Ativan Per patient's family, patient has not awaken since this morning Overall comfortable Signs and symptoms noted Review of Systems Review of Systems: Unobtainable due to cognitive status Physical Exam Physical Exam: General-obtunded, mild accessory muscle use, tachypnea noted Eyes- anicteric Neck- no JVD Lungs-positive rhonchi bilaterally, with intermittent wheezing Heart- normal rate, regular rhythm; no murmurs Abdomen-none distended Extremities-mild dependent edema, no calf tenderness Neuro- obtunded Skin- warm & dry Results & Data Vital Signs (Past 12 Hours) Vital Signs Pulse BP Pulse Ox 09/15/18 14:00 62 158/66 H 93 09/15/18 12:00 63 160/61 H 96 09/15/18 10:00 62 159/59 H 96 09/15/18 09:00 67 194/75 H 90
[2018-09-15] MEDS ORDERED: MORPHINE IV SCH (21:30)
[2018-09-15] MEDS ORDERED: SODIUM CHLORIDE IV SCH (21:30)
[2018-09-15] MEDS ORDERED: MoRPHine SULF/NSS 100 MG/100 ML BAG IV SCH (21:45)
[2018-09-15] MEDS: ARTIFICIAL TEARS OP SCH (22:03)
--- NOTE | 2018-09-16 00:32 | Death Summary ---
Date of Service September 16, 2018 Pronouncement Note Date and Time of Date of : 09/16/18 Time of : 12:40 Contributing Factors (1) Respiratory failure: (2) Sepsis: Summary Additional details: Dr. Marquez to accomplish discharge summary. Additional Data Confirmation of : no respirations, no heart sounds and pupils fixed and dilated Family: at bedside Attending/PCP notified?: No Attending physician: Carl Marquez MD
[2018-09-16 14:29] LABS: Plt Ab, Heparin Induced Negative (Negative)
--- NOTE | 2018-09-16 18:53 | Discharge Summary ---
Date of Service September 16, 2018 Admission HPI Per Admitting Provider History obtained from patient, family, and records. Medical history significant for sick sinus syndrome status post pacemaker, Sjogren's syndrome on chronic steroid Rx, ILD/autoimmune hepatitis as per records, hypertension, history of temporal arteritis as per records, DM2 on oral meds. Recent confinement last week for symptomatic bradycardia status post PPM. Good PPM function, small dried area of drainage noted on incision site on outpatient follow-up w/ [facility] few days ago. Yesterday afternoon, patient noted nausea, emesis, and fever at home. Achy epigastric discomfort and headache symptoms. No chest pain, no S OB. Usual loose stools which patient attributes to home Prilosec. Drainage expressed from pacemaker incision site at the emergency room. Patient received Vancomycin and Ceftriaxone at the ER for sepsis. Medical History as above Surgical History : PPM, eye surgery, uterine biopsy, liver biopsy, BTL Family History : Heart disease, bladder cancer, dementia, stroke Personal/Social history : Non-smoker, no EtOH intake, homemaker in her younger years Admission Exam Per Admitting Provider GENERAL: Wane, ill looking, no respiratory distress SKIN: Normal color, warm HEENT: Bespectacled, pink palpebral conjunctivae, no ptosis, dry buccal mucosa NECK : Supple, no tenderness CHEST : CTA, dried pus noted on left pacemaker pocket incision, minimal induration, no overt tenderness HEART : Tachycardic, no obvious murmurs ABDOMEN: Some distention, nontender EXTREMITIES : No LE swelling/tenderness, no other conspicuous deformities noted NEUROLOGIC : Coherent, no facial asymmetry, no other gross focality Principal Diagnosis Sepsis secondary to bacteremia, pacemaker infection, acute on chronic hypoxic respiratory failure, underlying interstitial lung disease, acute renal failure Discharge Exam General-obtunded, mild accessory muscle use, tachypnea noted Eyes- anicteric Neck- no JVD Lungs-positive rhonchi bilaterally, with intermittent wheezing Heart- normal rate, regular rhythm; no murmurs Abdomen-none distended Extremities-mild dependent edema, no calf tenderness Neuro- obtunded Skin- warm & dry Discharge Data Allergies Allergy/AdvReac Type Severity Reaction Status Date / Time Bactrim Allergy Severe edema Unverified 05/23/17 00:18 face/lips/tongue sulfamethoxazole Allergy Severe edema Unverified 08/30/18 23:11 face/lips/tongue trimethoprim Allergy Severe edema Unverified 08/30/18 23:11 face/lips/tongue latex Allergy Mild LOCAL SKIN Unverified 08/30/18 23:11 REACTION niacin Allergy Mild RASH Unverified 08/30/18 23:11 Cipro AdvReac Intermediate GI SYMPTOMS Verified 05/23/17 00:18 ciprofloxacin AdvReac Intermediate GI SYMPTOMS Verified 08/30/18 23:11 metronidazole AdvReac Intermediate GI SYMPTOMS Verified 08/30/18 23:11 naproxen AdvReac Intermediate BURNING Unverified 08/30/18 23:11 STOMACH Consultations 08/31/18 00:41 ED Decision to Admit Stat 08/31/18 10:00 Consult Anesthesiology Routine 08/31/18 10:01 Consult Infectious Diseases Routine 09/01/18 15:17 Consult Case Management - Discharge Planning Routine Consult Oem Sales Manager Routine 09/05/18 08:13 Consult Pulmonology Routine 09/12/18 17:11 Consult Palliative Care Routine 09/13/18 08:54 Consult Nephrology Routine Procedures Performed Operation Date: 08/31/18 10:50 Actual Procedures p Transesophageal Echo - Aries Walker DO Operation Date: 09/01/18 14:00 Actual Procedures p Pacer Removal - Feli Baird DO s Lead, Extraction Dual Pacing - Feli Baird DO Ordered Studies 08/31/18 01:04 CT abd pelvis IV con only Urgent CT chest w con Urgent CT head/brain wo con Urgent 09/01/18 07:30 EP Lab Images for PACS ONCE 09/05/18 10:10 CT angio chest PE protocol Stat US venous doppler LE BI Stat 09/13/18 08:47 US duplex renal artery Urgent 09/14/18 09:09 CT head/brain wo con Urgent Hospital Course (1) Sepsis: Secondary to pacemaker site infection, bacteremia 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 Immunocompromised patient with Sjogren's syndrome on chronic steroid Rx S/Post removal of pacemaker on 09/01/2018 Wound culture: Positive for Pseudomonas and MSSA Blood cultures: Positive for MSSA Was on IV cefepime and daptomycin Acute on Chronic Hypoxic Respiratory Failure Interstitial lung disease History of Sjogren's syndrome with lung involvement CT chest ordered: Positive for right lower lobe pulmonary emboli Was placed on IV Lasix, IV Solu-Medrol Patient deteriorated, transferred to ICU, eventually intubated Course in the ICU complicated by acute renal failure, uncontrolled hypertension Terminally extubated 09/15/2018 per family request, after discussion with palliative care services, also placed under comfort measures PRN morphine drip ordered Also on PRN Ativan, atropine Patient September 16, 2018 Acute renal failure: Kidney function worsened with creatinine went up to more than 3 Renal ultrasound did not show any renal artery stenosis Immediate Hemodialysis not recommended Nephrology consulted Pulmonary embolism Given intravenous heparin Hypertension Amlodipine increased to 10 mg p.o. daily for better BP control Lisinopril 5 mg p.o. daily added Nitropaste applied DM2 ISS given Total Time Total Time Spent Total Time Spent (In Minutes): 10 minutes Discharge Plan Discharge Items Patient Disposition: Admission Data Admit Date/Time: 08/31/18 02:25 Attending Provider: Carl Marquez Admit Provider: Duarte Miguel Primary Care Provider: Pilar Mohamud Other Providers: Carl Marquez ; Chelly Mckinnon ; Duarte Miguel ; Michele Bourne ; Reginald Griffin ; Cholo Saldana ; Duarte Delong ; Brandy Russell ; Anusha Walker Service: Intensive Care Unit Other OR Date/Time DO NOT enter until pt leaves facility: 09/16/18 00:19
== END 2018-09-16 00:19 | disposition expired | DRG 260 ==
LOC: ED 22:49 → 2E 08-31 02:25 → SUATTDRO 08-31 02:25 → 2E 08-31 02:54 → 1E 09-01 15:24 → 2E 09-04 16:03 → 1E 09-12 08:34 → 4W 09-15 15:27
PROC: CLS.TEE (2018-08-31 10:50)